=== PATIENT | female | born 1995 | race Caucasian/White ===

== ENCOUNTER 2020-07-22 16:04 | Emergency (ER) | payer MEDICAID, SELFPAY ==
[2020-07-22 16:14] VITALS: PULSE 130; RESP 20; O2SAT 98; BMI 17.2
--- NOTE | 2020-07-22 17:03 | ED_ITS ---
HPI - Psych General Chief Complaint: ETOH/Substance Use Stated Complaint: SUBSTANCE ABUSE Time Seen by Provider: 07/22/20 16:27 Source: patient Mode of arrival: EMS Limitations: no limitations History of Present Illness HPI Narrative: Patient history of substance abuse snort heroin and cocaine from [place] been in [place] for last 3 weeks homeless was found acting strange at [facility] per patient she took 2 bags of heroin says might have laced with something else since she arrived she is restless walking around very anxious asking for some help no suicidal ideation history of anxiety but not on any medication Related Data Allergies Allergy/AdvReac Type Severity Reaction Status Date / Time No Known Allergies Allergy Verified 07/22/20 16:27 Review of Systems Review of Systems: Constitutional : No Fever, No Chills ENT/Mouth : No Ear Pain, No Nasal Congestion, No sore throat Eyes: No Eye Pain, No Swelling, No Redness Cardiovascular : No Chest Pain, No SOB Respiratory : No Cough, No Sputum, No Dyspnea Gastrointestinal : No Nausea, No Vomiting, No Diarrhea, No Hematochezia, No Melena Genitourinary : No Dysuria, No Urinary Frequency, No Hematuria Musculoskeletal : No Myalgias Skin : No Skin Lesions, + rash Neuro : No Weakness, No Numbness, No Paresthesias, No Dizziness, No Headache Psych : positive Anxiety, positive Depression, negative SI/HI Heme/Lymph: No Lymphadenopathy Endocrine : No Polyuria, No Polydipsia PMFSH Past Medical History Medical History (Updated 07/22/20 @ 17:16 by Marcello Santana MD) Anxiety Cocaine abuse Heroin abuse Social History Social History Advance Directives: No Advance Directives Information Provided: No Physical Exam Vital Signs: Vital Signs: Last Vital Signs Resp 20 07/22/20 16:14 Body Mass Index 17.2 Const: General: comfortable, no acute distress and anxious Orientation/consciousness: patient oriented x3 HENMT: Head: Yes normocephalic and Yes atraumatic Ears: hearing grossly normal bilaterally General nose exam: Normal external nose present Eyes: General: appearance normal, both eyes and all related structures Sclerae: sclerae normal Corneas: corneas normal Pupils: Equal, round and reactive pupils present Neck: Neck: Yes normal visual inspection, Yes full ROM and Yes no lymphadenopathy Chest: Chest palpation & inspection: normal palpation of entire chest wall Resp: Effort & Inspection: normal respiratory effort Auscultation: clear to auscultation bilaterally Cardio: Jugular venous distension: no JVD Palpation: normal PMI Rate: regular rate Rhythm: regular rhythm Heart sounds: S1 normal heart sound present and S2 normal heart sound present Peripheral pulses: Peripheral pulses 2+ throughout GI: Inspection: Yes normal to inspection Palpation (GI): Soft to palpation and nontender Auscultation: normal bowel sounds : General: Yes no CVA tenderness Back/Spine/Pelvis: Back: no CVA tenderness Thoracic/Lumbar Spine: thoracic and lumbar spine normal to inspection Skin: Other: Diffuse macular rash? Cocaine induced over exposed area of upper extremities and face Neuro: General: patient oriented x3, gait normal, moves all extremities, no focal motor deficits and CN's II-XI intact bilaterally Cranial nerves: Yes Equal, round and reactive pupils present Extrem: General: Yes normal to inspection, Yes full ROM and Yes no pedal edema Psych: Appearance: disheveled Mental Status: mental status grossly normal Speech and movement: Psychomotor agitation in speech present and Restless speech present Affect: Labile affect present Attitude: Belligerent attit itude/behavior present Thought process: Racing thoughts present Thought content: Normal thought content present Insight: Fair insight present (Psych) Judgement: Fair judgement present (Psych) MDM - Psych MDM Narrative Medical decision making narrative: Patient with substance abuse heroin and cocaine with anxiety refused to get any help from recovery agent who gave her the address is for detox places. Would like to go home no suicidal ideation feel safe wants to go out and smoke and enjoy her life will discharge her home Differential Diagnosis Differential diagnosis: Likely acute anxiety and substance abuse Discharge Plan Discharge Clinical Impression: Opiate abuse, continuous Patient Disposition: Home, Self-Care Instructions: Opioid Use Disorder (ED) Additional Instructions: Stop using heroin and cocaine follow up with detox
--- NOTE | 2020-07-22 17:14 | MHC.RECOVSUP ---
? Reason for consult o Current location: ED6 o Identified substance use concern: heroin ? Intervention: o ATS bed search started/completed/in process o MAT started or to be started o Community resources provided o Harm reduction discussion ? Plan: o Patient to follow up with [facility] after discharge ? Additional information:Patient refused any services.Stating I just want to leave!
== END 2020-07-22 17:30 | disposition home or self-care (01) ==
PROVIDERS: Emergency Provider Internal Medicine
DX: F11.10 Opioid abuse, uncomplicated (principal); F14.10 Cocaine abuse, uncomplicated; L27.1 Localized skin eruption due to drugs and medicaments taken internally
CPT/HCPCS: 99283

== ENCOUNTER 2020-08-01 15:44 | Emergency (ER) | payer MEDICAID, SELFPAY ==
[2020-08-01 16:05] VITALS: BP 120/70; PULSE 90; RESP 16; O2SAT 98; BMI 17.2
--- NOTE | 2020-08-01 16:10 | ED.OVERDOSE ---
HPI - Overdose General Chief Complaint: Overdose Stated Complaint: drug use Time Seen by Provider: 08/01/20 16:10 Source: patient and EMS Mode of arrival: EMS Limitations: no limitations History of Present Illness HPI Narrative: 24 y/o female with history of heroin use and dependence who presents to the ED via EMS after she was found wandering a parking lot. She reports using a half a bundle of heroin earlier this morning. She uses daily and is homeless. She has been to rehab twice and is not interested at this time. She is arrives anxious, restless and tearful. She wants to leave the ER. She does not want to stay for evaluation. She did not require Narcan. She is not suicidal. She was recently seen here on 07/24 with similar behavior. complaint: accidental overdose Onset (ago): hour(s) Intent: unwilling to say Context: Intentional Overdose: drug/ETOH problems Context: Accidental Overdose: wanted to get high Associated symptoms: depression Treatments Prior to Arrival: none Related Data Allergies Allergy/AdvReac Type Severity Reaction Status Date / Time No Known Allergies Allergy Verified 07/22/20 16:27 Review of Systems Review of Systems: Yes all other systems are reviewed and are negative [facility] Past Medical History Medical History Anxiety Cocaine abuse Heroin abuse Physical Exam Vital Signs: Vital Signs: Appearance: Alert. Oriented X3. Multiple scabs in various stages of healing all over arms, face and neck Eyes: Pupils equal, round and reactive to light. ENT: Pharynx normal. Neck: Normal inspection. Neck supple. CVS: Normal heart rate and rhythm. Pulses normal. Respiratory: No respiratory distress. Breath sounds normal. Skin: Skin warm and dry. Normal skin color with scabbing all over her body Extremities: No lower extremity edema. track castelan on bilateral hands without palpable abscess Neuro: Oriented X 3. No motor deficit. No sensory deficit. Steady gait, restless. Course Course Course Narrative: 24 y/o female with history of daily heroin use presenting with odd behavior in the community. She is AAO x3, non-focal and has a steady gait. She is refusing detox. She is speaking in complete sentences. She was told if she did not come to the ER for evaluation she would be arrested. She is not suicidal at this time and she is stable for discharge. Discharge Plan Discharge Clinical Impression: Heroin addiction Patient Disposition: Elopement
--- NOTE | 2020-08-01 16:12 | PC.NURSE ---
pt refused triage, refused assessment. she is awake, oriented and speaking in full clear sentences, demanding food and andrea kimberly, also has her hands down her pants and is swearing at staff. Pt states she does not want treatment, does not want detox and refuses to discuss her drug use. She states she has a yeast infection and states her vagina itches, has hand in pants and is scratching. Pt seen by provider and states she is leaving. She ambulated from room to exit with steady gait
== END 2020-08-02 08:57 | disposition left against medical advice (07) ==
LOC: HO.ED 16:29
PROVIDERS: Emergency Provider Emergency Medicine
DX: T40.1X1A Poisoning by heroin, accidental (unintentional), initial encounter (principal); R45.1 Restlessness and agitation; R46.2 Strange and inexplicable behavior; Y92.481 Parking lot as the place of occurrence of the external cause; F41.9 Anxiety disorder, unspecified; F11.20 Opioid dependence, uncomplicated; F14.10 Cocaine abuse, uncomplicated
CPT/HCPCS: 99282

== ENCOUNTER 2020-08-05 08:46 | Inpatient (IN) | payer MEDICAID, SELFPAY ==
[2020-08-05] VITALS (15 sets, daily range): BP systolic 103–153; BP diastolic 66–82; PULSE 58–117; RESP 22–40; TEMP 35.7–37.1; O2SAT 99–100; BMI 20.1; BMI 19.4
--- NOTE | ~2020-08-05 | XR_ITS ---
EXAMINATION: XR CHEST CLINICAL INFORMATION: Hypothermia. COMPARISON: None TECHNIQUE: Frontal view of the chest was obtained. FINDINGS: The lungs are clear. The cardiomediastinal silhouette is normal in size. There is no pleural effusion or pneumothorax. No acute osseous abnormality. XR/XR chest 1V IMPRESSION: No acute cardiopulmonary findings.
--- NOTE | ~2020-08-05 | CT_ITS ---
EXAMINATION: CT HEAD WITHOUT CONTRAST CLINICAL INFORMATION: Hypothermia. Found outside by PD. Unknown trauma. COMPARISON: Chest radiograph 08/05/2020 TECHNIQUE: Contiguous axial imaging was performed from the skull base to vertex without intravenous administration of contrast. Additional 2-D coronal and sagittal reformatted images are generated on the CT workstation and uploaded to PACS. This CT examination was performed using dose optimization techniques as appropriate, variously including the following: *Automated exposure control *Adjustment of mA and/or kV according to patient size (this includes techniques or standardized protocols for targeted exams where dose is matched to indication/reason for exam; i.e. extremities or head) *Use of iterative reconstruction technique DLP: 610 mGy-cm FINDINGS: There is no intracranial hemorrhage, hematoma, or extra-axial fluid collection. The ventricles are normal in size. There is no hydrocephalus, edema, or mass effect. The hines-white matter differentiation appears symmetric. There is no visible acute territorial infarct or mass lesion. The calvarium appears intact. There is no pneumocephalus or orbital emphysema. The visualized sinuses and middle ears and mastoid air cells show no significant mucosal thickening. There are no air-fluid levels. CT/CT head/brain wo con IMPRESSION: Normal noncontrast CT head.
--- NOTE | 2020-08-05 09:05 | ECG_ITS ---
Test Reason : HYPERGLYCEMIA Blood Pressure : / mmHG Vent. Rate : 117 BPM Atrial Rate : 117 BPM P-R Int : 134 ms QRS Dur : 072 ms QT Int : 330 ms P-R-T Axes : 083 083 055 degrees QTc Int : 460 ms Sinus tachycardia Right atrial enlargement Tall T waves - consider hyperkalemia No previous ECGs available Referred By: Mahsa Parish Electronically Signed By:Constantine Montalvo
--- NOTE | 2020-08-05 09:19 | ED.GENADULT ---
HPI - General Adult General Chief complaint: Recheck/Abnormal Lab/Rx <MIRANDA Dunn - Last Filed: 08/05/20 12:36> Stated complaint: SUBSTANCE USE,HYPOTHERMIA,HIGH BLOOD SUGAR <MIRANDA Dunn Last Filed: 08/05/20 12:36> Time Seen by Provider: 08/05/20 08:48 <MIRANDA Dunn Last Filed: 08/05/20 12:36> Source: patient and EMS <MIRANDA Dunn Last Filed: 08/05/20 12:36> Mode of arrival: EMS <MIRANDA Dunn Last Filed: 08/05/20 12:36> History of Present Illness HPI narrative: 24-year-old female with a past medical history of DM, anxiety, substance abuse, BIBA [place] unconscious with suspected substance abuse, hypothermic, and with elevated glucose. Per EMS POC 411. Patient reports she has been outside for 3 days. Reported drug of choice is heroin, however denies illicit drug/substance use or EtOH in 3 days. Admits to abdominal discomfort, nausea, vomiting, and diarrhea. Denies fall/trauma, CP/SOB. <MIRANDA Dunn - Last Filed: 08/05/20 12:36> Onset (ago): minute(s) <MIRANDA Dunn - Last Filed: 08/05/20 12:36> Related Data Home medications: Home Medications Medication Instructions Recorded Confirmed insulin regular human [Novolin R 1 sliding scale dose SUBCUT 08/05/20 08/05/20 Regular U-100 Insuln] USEASDIRECTD <MIRANDA Dunn Last Filed: 08/05/20 12:36> Allergies/adverse reactions: Allergies Allergy/AdvReac Type Severity Reaction Status Date / Time No Known Allergies Allergy Verified 07/22/20 16:27 <MIRANDA Dunn Last Filed: 08/05/20 12:36> Review of Systems Review of Systems: Constitutional: No Weight loss, No Fever, +Chills ENT/Mouth: No Ear Pain, No sore throat Cardiovascular: No Chest Pain, No SOB Respiratory: No Cough, No Sputum Gastrointestinal: + Nausea, + Vomiting, + Diarrhea, No Constipation, + Abdominal pain Genitourinary: No Dysuria, No Hematuria Musculoskeletal: No joint pain, No Myalgias, No Joint Swelling Skin: No Skin Lesions, No rash Neuro: No Weakness, No Numbness, No Headache Psych: No Depression, No SI/HI, No Social Issues Endocrine: + Polydipsia Patient is poor historian/not cooperative <MIRANDA Dunn - Last Filed: 08/05/20 12:36> [facility] Past Medical History Attestation statement: The following information was validated with the patient. <MIRANDA Dunn - Last Filed: 08/05/20 12:36> Medical History: Medical History Anxiety Cocaine abuse Heroin abuse <MIRANDA Dunn - Last Filed: 08/05/20 12:36> Social History Social History: Social History Use of substances other than those prescribed or required for medical reasons: Yes Substance Use Type: Heroin and Methamphetamine Substance Use Frequency: Daily Last Used Substance: Days (ago) Advance Directives: No Advance Directives Information Provided: No <MIRANDA Dunn - Last Filed: 08/05/20 12:36> Physical Exam Vital Signs: Vital Signs: Last Vital Signs Temp 96.3 F L 08/05/20 12:23 Pulse 111 H 08/05/20 12:23 Resp 29 H 08/05/20 12:23 BP 143/82 H 08/05/20 12:23 Pulse Ox 100 08/05/20 12:23 Body Mass Index 20.1 <MIRANDA Dunn - Last Filed: 08/05/20 12:36> Vital Signs: Last Vital Signs Temp 96.3 F L 08/05/20 12:23 Pulse 111 H 08/05/20 12:23 Resp 29 H 08/05/20 12:23 BP 143/82 H 08/05/20 12:23 Pulse Ox 100 08/05/20 12:23 Body Mass Index 20.1 <Kennedy Wetzel MD - Last Filed: 08/05/20 11:19> Const: Other: No signs of trauma <MIRANDA Dunn - Last Filed: 08/05/20 12:36> General: alert and awake <Mahsa Parish OR - Last Filed: 08/05/20 12:36> Nutritional Appearance: malnourished <Mahsa Parish OR - Last Filed: 08/05/20 12:36> Orientation/consciousness: patient oriented x3 <Mahsa Parish OR - Last Filed: 08/05/20 12:36> Limitations: no limitations <Mahsa Parish OR - Last Filed: 08/05/20 12:36> HENMT: Head: Yes normal to inspection and Yes atraumatic <Mahsa Parish OR - Last Filed: 08/05/20 12:36> Ears: hearing grossly normal bilaterally <Mahsa Parish OR - Last Filed: 08/05/20 12:36> General nose exam: Normal external nose present <Mahsa Parish OR - Last Filed: 08/05/20 12:36> Face and sinus: Yes normal facial exam <Mahsa Parish OR - Last Filed: 08/05/20 12:36> Eyes: General: appearance normal, both eyes and all related structures <Mahsa Parish OR - Last Filed: 08/05/20 12:36> Pupils: Dilated pupils bilaterally <Mahsa Parish OR - Last Filed: 08/05/20 12:36> EOM: EOMs intact bilaterally <Mahsa Parish OR - Last Filed: 08/05/20 12:36> Direct Ophthalmoscopy: normal light reflex <Mahsa Parish OR - Last Filed: 08/05/20 12:36> Neck: Neck: Yes normal visual inspection and Yes no meningeal signs <Mahsa Parish OR - Last Filed: 08/05/20 12:36> Resp: Effort & Inspection: normal respiratory effort and not labored <Mahsa Parish OR - Last Filed: 08/05/20 12:36> Cardio: Rate: regular rate <Mahsa Parish OR - Last Filed: 08/05/20 12:36> GI: Inspection: Yes normal to inspection <Mahsa Parish OR - Last Filed: 08/05/20 12:36> Palpation (GI): Soft to palpation, nontender, no guarding and not rigid <Mahsa Parish OR - Last Filed: 08/05/20 12:36> Skin: Other: Multiple scabs noted diffusely over body multiple stages of healing <MIRANDA Dunn Last Filed: 08/05/20 12:36> Neuro: Other: Anxious, restless <MIRANDA Dunn Last Filed: 08/05/20 12:36> General: patient oriented x3, tone normal, moves all extremities and no meningeal signs <MIRANDA Dunn - Last Filed: 08/05/20 12:36> Extrem: General: Yes normal to inspection <MIRANDA Dunn - Last Filed: 08/05/20 12:36> Course Course Course Narrative: -1050--patient with noted leukocytosis of 15.7, CXR negative. Is receiving greater than 30 mg/kg IVF & empiric IV Zosyn ordered to cover sepsis -1056--lactic acidosis noted of 10.8 likely from DKA/hypothermia/dehydration rather than infection. No active infection suspected at this time. - Bicarb noted to be less than 5 > insulin bolus and drip ordered, head CT unremarkable. Case discussed with ICU for admission <MIRANDA Dunn - Last Filed: 08/05/20 12:36> I have discussed the case and management with the OSEI <Kennedy Wetzel MD - Last Filed: 08/05/20 11:19> Medical Decision Making [facility] Narrative Medical decision making narrative: 24-year-old female with a past medical history of DM, anxiety, substance abuse, BIBA [place] with suspected substance abuse, hypothermic, and with elevated glucose. On exam initially hypothermic 94F rectally, tachycardic, tachypneic, POC > 600, covered in feces, alert, oriented, restless, poor historian, no signs of trauma. Concern for DKA vs dehydration vs electrolyte abnormalities vs exposure/drug induced hypothermia. R/o infectious etiology. R/o IC pathology due to poor hx Low concern for severe sepsis initially as suspected vital sign abnormalities due to dehydration/exposure and hyperglycemia Plan: EKG, labs, UA, CXR, head CT, warm IVF, Ana Hugger, reassess, anticipated admission <MIRANDA Dunn Last Filed: 08/05/20 12:36> Lab Data Result diagrams: : 08/05/20 10:12 08/05/20 10:16 <MIRANDA Dunn - Last Filed: 08/05/20 12:36> Labs: Lab Results 08/05/20 08/05/20 08/05/20 Range/Units 09:28 10:10 10:12 WBC 15.7 H (4.8-10.8) X10*3/uL RBC 4.96 (4.20-5.50) X10*6/uL Hgb 14.0 (12.0-16.0) g/dl Hct 45.8 (37-47) % MCV 92.3 (80-98) fL MCH 28.2 (27.0-33.0) pg MCHC 30.6 L (31.0-35.0) g/dl RDW 14.3 (11.0-16.0) % Plt Count 509 H (160-400) X10*3/uL MPV 10.6 (9.4-12.3) fL Immature Gran % (Auto) 0.8 H (0.0-0.4) % Neut % (Auto) 93.2 H (45-73) % Lymph % (Auto) 4.7 L (20-40) % [place] % (Auto) 1.0 L (2-11) % Eos % (Auto) 0.1 (0-4) % Baso % (Auto) 0.2 (0-2) % Lymph # (Auto) 0.7 L (1.2-4.9) X10*3/uL [place] # (Auto) 0.2 (0.1-1.2) X10*3/uL Eos # (Auto) 0.0 (0.0-0.4) X10*3/uL Baso # (Auto) 0.0 (0.0-0.2) X10*3/uL Abs Immat Gran (auto) 0.13 H (0.00-0.03) X10*3/uL Absolute Neuts (auto) 14.6 H (2.0-8.3) X10*3/uL Absolute Nucleated RBC 0.000 (0.0-0.012) X10*3/uL Nucleated RBC % (auto) 0.0 (0.0-0.2) /100WBC Smear Tech's Comments VERIFIED PT (10.8-13.0) SEC INR (0.9-1.1) APTT (24.1-38.0) SEC Sodium (135-145) mmol/L Potassium (3.3-5.1) mmol/L Chloride (96-108) mmol/L Carbon Dioxide (22-29) mmol/L Anion Gap (12-20) BUN (9-16) mg/dL Creatinine (0.5-1.4) mg/dL Estim Creat Clear Calc Estimated GFR POC Glucose > 600 H* (60-115) mg/dL Random Glucose (60-115) mg/dL Lactic Acid 10.8 H* (0.5-2.0) mmol/L Calcium (8.4-10.2) mg/dL Magnesium (1.6-2.6) mg/dL Total Bilirubin (0.0-1.0) mg/dL Direct Bilirubin (0.0-0.5) mg/dL AST (5-31) U/L ALT (0-31) U/L Alkaline Phosphatase (39-117) U/L Total Protein (6.5-8.0) g/dL Albumin (3.5-5.0) g/dL Lipase (8-78) U/L TSH (0.32-4.0) uIU/mL Ethyl Alcohol mg/dL Coronavirus (PCR) (Negative) Influenza Type A (PCR) (Negative) Influenza Type B (PCR) (Negative) RSV RNA Qual (PCR) (Negative) 08/05/20 08/05/20 08/05/20 Range/Units 10:13 10:15 10:15 WBC (4.8-10.8) X10*3/uL RBC (4.20-5.50) X10*6/uL Hgb (12.0-16.0) g/dl Hct (37-47) % MCV (80-98) fL MCH (27.0-33.0) pg MCHC (31.0-35.0) g/dl RDW (11.0-16.0) % Plt Count (160-400) X10*3/uL MPV (9.4-12.3) fL Immature Gran % (Auto) (0.0-0.4) % Neut % (Auto) (45-73) % Lymph % (Auto) (20-40) % [place] % (Auto) (2-11) % Eos % (Auto) (0-4) % Baso % (Auto) (0-2) % Lymph # (Auto) (1.2-4.9) X10*3/uL [place] # (Auto) (0.1-1.2) X10*3/uL Eos # (Auto) (0.0-0.4) X10*3/uL Baso # (Auto) (0.0-0.2) X10*3/uL Abs Immat Gran (auto) (0.00-0.03) X10*3/uL Absolute Neuts (auto) (2.0-8.3) X10*3/uL Absolute Nucleated RBC (0.0-0.012) X10*3/uL Nucleated RBC % (auto) (0.0-0.2) /100WBC Smear Tech's Comments PT (10.8-13.0) SEC INR (0.9-1.1) APTT (24.1-38.0) SEC Sodium (135-145) mmol/L Potassium (3.3-5.1) mmol/L Chloride (96-108) mmol/L Carbon Dioxide (22-29) mmol/L Anion Gap (12-20) BUN (9-16) mg/dL Creatinine (0.5-1.4) mg/dL Estim Creat Clear Calc Estimated GFR POC Glucose (60-115) mg/dL Random Glucose (60-115) mg/dL Lactic Acid (0.5-2.0) mmol/L Calcium (8.4-10.2) mg/dL Magnesium (1.6-2.6) mg/dL Total Bilirubin (0.0-1.0) mg/dL Direct Bilirubin (0.0-0.5) mg/dL AST (5-31) U/L ALT (0-31) U/L Alkaline Phosphatase (39-117) U/L Total Protein (6.5-8.0) g/dL Albumin (3.5-5.0) g/dL Lipase (8-78) U/L TSH 1.37 (0.32-4.0) uIU/mL Ethyl Alcohol < 10 mg/dL Coronavirus (PCR) NEGATIVE (Negative) Influenza Type A (PCR) NEGATIVE (Negative) Influenza Type B (PCR) NEGATIVE (Negative) RSV RNA Qual (PCR) NEGATIVE (Negative) 08/05/20 08/05/20 Range/Units 10:16 10:16 WBC (4.8-10.8) X10*3/uL RBC (4.20-5.50) X10*6/uL Hgb (12.0-16.0) g/dl Hct (37-47) % MCV (80-98) fL MCH (27.0-33.0) pg MCHC (31.0-35.0) g/dl RDW (11.0-16.0) % Plt Count (160-400) X10*3/uL MPV (9.4-12.3) fL Immature Gran % (Auto) (0.0-0.4) % Neut % (Auto) (45-73) % Lymph % (Auto) (20-40) % [place] % (Auto) (2-11) % Eos % (Auto) (0-4) % Baso % (Auto) (0-2) % Lymph # (Auto) (1.2-4.9) X10*3/uL [place] # (Auto) (0.1-1.2) X10*3/uL Eos # (Auto) (0.0-0.4) X10*3/uL Baso # (Auto) (0.0-0.2) X10*3/uL Abs Immat Gran (auto) (0.00-0.03) X10*3/uL Absolute Neuts (auto) (2.0-8.3) X10*3/uL Absolute Nucleated RBC (0.0-0.012) X10*3/uL Nucleated RBC % (auto) (0.0-0.2) /100WBC Smear Tech's Comments PT 11.8 (10.8-13.0) SEC INR 1.0 (0.9-1.1) APTT 29.0 (24.1-38.0) SEC Sodium 134 L (135-145) mmol/L Potassium 5.4 H (3.3-5.1) mmol/L Chloride 91 L (96-108) mmol/L Carbon Dioxide < 5 L* (22-29) mmol/L Anion Gap 43 H (12-20) BUN 25 H (9-16) mg/dL Creatinine 1.57 H (0.5-1.4) mg/dL Estim Creat Clear Calc 44.2 Estimated GFR 41 POC Glucose (60-115) mg/dL Random Glucose 760 H* (60-115) mg/dL Lactic Acid (0.5-2.0) mmol/L Calcium 9.0 (8.4-10.2) mg/dL Magnesium 2.8 H (1.6-2.6) mg/dL Total Bilirubin 0.7 (0.0-1.0) mg/dL Direct Bilirubin 0.3 (0.0-0.5) mg/dL AST 19 (5-31) U/L ALT 41 H (0-31) U/L Alkaline Phosphatase 198 H (39-117) U/L Total Protein 8.1 H (6.5-8.0) g/dL Albumin 4.2 (3.5-5.0) g/dL Lipase 12 (8-78) U/L TSH (0.32-4.0) uIU/mL Ethyl Alcohol mg/dL Coronavirus (PCR) (Negative) Influenza Type A (PCR) (Negative) Influenza Type B (PCR) (Negative) RSV RNA Qual (PCR) (Negative) <MIRANDA Dunn - Last Filed: 08/05/20 12:36> Lab Results 08/05/20 08/05/20 08/05/20 Range/Units 09:28 10:10 10:12 WBC 15.7 H (4.8-10.8) X10*3/uL RBC 4.96 (4.20-5.50) X10*6/uL Hgb 14.0 (12.0-16.0) g/dl Hct 45.8 (37-47) % MCV 92.3 (80-98) fL MCH 28.2 (27.0-33.0) pg MCHC 30.6 L (31.0-35.0) g/dl RDW 14.3 (11.0-16.0) % Plt Count 509 H (160-400) X10*3/uL MPV 10.6 (9.4-12.3) fL Immature Gran % (Auto) 0.8 H (0.0-0.4) % Neut % (Auto) 93.2 H (45-73) % Lymph % (Auto) 4.7 L (20-40) % [place] % (Auto) 1.0 L (2-11) % Eos % (Auto) 0.1 (0-4) % Baso % (Auto) 0.2 (0-2) % Lymph # (Auto) 0.7 L (1.2-4.9) X10*3/uL [place] # (Auto) 0.2 (0.1-1.2) X10*3/uL Eos # (Auto) 0.0 (0.0-0.4) X10*3/uL Baso # (Auto) 0.0 (0.0-0.2) X10*3/uL Abs Immat Gran (auto) 0.13 H (0.00-0.03) X10*3/uL Absolute Neuts (auto) 14.6 H (2.0-8.3) X10*3/uL Absolute Nucleated RBC 0.000 (0.0-0.012) X10*3/uL Nucleated RBC % (auto) 0.0 (0.0-0.2) /100WBC Smear Tech's Comments VERIFIED PT (10.8-13.0) SEC INR (0.9-1.1) APTT (24.1-38.0) SEC Sodium (135-145) mmol/L Potassium (3.3-5.1) mmol/L Chloride (96-108) mmol/L Carbon Dioxide (22-29) mmol/L Anion Gap (12-20) BUN (9-16) mg/dL Creatinine (0.5-1.4) mg/dL Estim Creat Clear Calc Estimated GFR POC Glucose > 600 H* (60-115) mg/dL Random Glucose (60-115) mg/dL Lactic Acid 10.8 H* (0.5-2.0) mmol/L Calcium (8.4-10.2) mg/dL Magnesium (1.6-2.6) mg/dL Total Bilirubin (0.0-1.0) mg/dL Direct Bilirubin (0.0-0.5) mg/dL AST (5-31) U/L ALT (0-31) U/L Alkaline Phosphatase (39-117) U/L Total Protein (6.5-8.0) g/dL Albumin (3.5-5.0) g/dL Lipase (8-78) U/L TSH (0.32-4.0) uIU/mL Ethyl Alcohol mg/dL Coronavirus (PCR) (Negative) Influenza Type A (PCR) (Negative) Influenza Type B (PCR) (Negative) RSV RNA Qual (PCR) (Negative) 08/05/20 08/05/20 08/05/20 Range/Units 10:13 10:15 10:15 WBC (4.8-10.8) X10*3/uL RBC (4.20-5.50) X10*6/uL Hgb (12.0-16.0) g/dl Hct (37-47) % MCV (80-98) fL MCH (27.0-33.0) pg MCHC (31.0-35.0) g/dl RDW (11.0-16.0) % Plt Count (160-400) X10*3/uL MPV (9.4-12.3) fL Immature Gran % (Auto) (0.0-0.4) % Neut % (Auto) (45-73) % Lymph % (Auto) (20-40) % [place] % (Auto) (2-11) % Eos % (Auto) (0-4) % Baso % (Auto) (0-2) % Lymph # (Auto) (1.2-4.9) X10*3/uL [place] # (Auto) (0.1-1.2) X10*3/uL Eos # (Auto) (0.0-0.4) X10*3/uL Baso # (Auto) (0.0-0.2) X10*3/uL Abs Immat Gran (auto) (0.00-0.03) X10*3/uL Absolute Neuts (auto) (2.0-8.3) X10*3/uL Absolute Nucleated RBC (0.0-0.012) X10*3/uL Nucleated RBC % (auto) (0.0-0.2) /100WBC Smear Tech's Comments PT (10.8-13.0) SEC INR (0.9-1.1) APTT (24.1-38.0) SEC Sodium (135-145) mmol/L Potassium (3.3-5.1) mmol/L Chloride (96-108) mmol/L Carbon Dioxide (22-29) mmol/L Anion Gap (12-20) BUN (9-16) mg/dL Creatinine (0.5-1.4) mg/dL Estim Creat Clear Calc Estimated GFR POC Glucose (60-115) mg/dL Random Glucose (60-115) mg/dL Lactic Acid (0.5-2.0) mmol/L Calcium (8.4-10.2) mg/dL Magnesium (1.6-2.6) mg/dL Total Bilirubin (0.0-1.0) mg/dL Direct Bilirubin (0.0-0.5) mg/dL AST (5-31) U/L ALT (0-31) U/L Alkaline Phosphatase (39-117) U/L Total Protein (6.5-8.0) g/dL Albumin (3.5-5.0) g/dL Lipase (8-78) U/L TSH 1.37 (0.32-4.0) uIU/mL Ethyl Alcohol < 10 mg/dL Coronavirus (PCR) NEGATIVE (Negative) Influenza Type A (PCR) NEGATIVE (Negative) Influenza Type B (PCR) NEGATIVE (Negative) RSV RNA Qual (PCR) NEGATIVE (Negative) 08/05/20 08/05/20 Range/Units 10:16 10:16 WBC (4.8-10.8) X10*3/uL RBC (4.20-5.50) X10*6/uL Hgb (12.0-16.0) g/dl Hct (37-47) % MCV (80-98) fL MCH (27.0-33.0) pg MCHC (31.0-35.0) g/dl RDW (11.0-16.0) % Plt Count (160-400) X10*3/uL MPV (9.4-12.3) fL Immature Gran % (Auto) (0.0-0.4) % Neut % (Auto) (45-73) % Lymph % (Auto) (20-40) % [place] % (Auto) (2-11) % Eos % (Auto) (0-4) % Baso % (Auto) (0-2) % Lymph # (Auto) (1.2-4.9) X10*3/uL [place] # (Auto) (0.1-1.2) X10*3/uL Eos # (Auto) (0.0-0.4) X10*3/uL Baso # (Auto) (0.0-0.2) X10*3/uL Abs Immat Gran (auto) (0.00-0.03) X10*3/uL Absolute Neuts (auto) (2.0-8.3) X10*3/uL Absolute Nucleated RBC (0.0-0.012) X10*3/uL Nucleated RBC % (auto) (0.0-0.2) /100WBC Smear Tech's Comments PT 11.8 (10.8-13.0) SEC INR 1.0 (0.9-1.1) APTT 29.0 (24.1-38.0) SEC Sodium 134 L (135-145) mmol/L Potassium 5.4 H (3.3-5.1) mmol/L Chloride 91 L (96-108) mmol/L Carbon Dioxide < 5 L* (22-29) mmol/L Anion Gap 43 H (12-20) BUN 25 H (9-16) mg/dL Creatinine 1.57 H (0.5-1.4) mg/dL Estim Creat Clear Calc 44.2 Estimated GFR 41 POC Glucose (60-115) mg/dL Random Glucose 760 H* (60-115) mg/dL Lactic Acid (0.5-2.0) mmol/L Calcium 9.0 (8.4-10.2) mg/dL Magnesium 2.8 H (1.6-2.6) mg/dL Total Bilirubin 0.7 (0.0-1.0) mg/dL Direct Bilirubin 0.3 (0.0-0.5) mg/dL AST 19 (5-31) U/L ALT 41 H (0-31) U/L Alkaline Phosphatase 198 H (39-117) U/L Total Protein 8.1 H (6.5-8.0) g/dL Albumin 4.2 (3.5-5.0) g/dL Lipase 12 (8-78) U/L TSH (0.32-4.0) uIU/mL Ethyl Alcohol mg/dL Coronavirus (PCR) (Negative) Influenza Type A (PCR) (Negative) Influenza Type B (PCR) (Negative) RSV RNA Qual (PCR) (Negative) <Kennedy Wetzel MD - Last Filed: 08/05/20 11:19> ECG Data Attestation: I personally reviewed and interpreted this ECG as follows: <MIRANDA Dunn - Last Filed: 08/05/20 12:36> Prior ECG tracings: not available for review <MIRANDA Dunn - Last Filed: 08/05/20 12:36> Interpretation: EKG sinus tachycardia with a rate of 117. No STEMI. QTC 460 <MIRANDA Dunn - Last Filed: 08/05/20 12:36> Critical Care Time Critical Care Time Critical Care Time: Yes <MIRANDA Dunn - Last Filed: 08/05/20 12:36> Total Critical Care Time: 60 <MIRANDA Dunn - Last Filed: 08/05/20 12:36> Attestation: 60 minutes of critical care time was spent evaluating patient, obtaining history, chart review, re-evaluating patient, reviewing labs/orders, etc. <MIRANDA Dunn - Last Filed: 08/05/20 12:36> Discharge Plan Discharge Patient Disposition: Admitted As Inpatient <MIRANDA Dunn - Last Filed: 08/05/20 12:36>
[2020-08-05 09:32] LABS: Glucose, Whole Blood > 600 mg/dL (60-115)
--- NOTE | 2020-08-05 10:29 | PC.NURSE ---
Pt alert and oriented, skin pale and cool, rectal temp 94.0 , POC > 600. Pt reports RL abdominal pain 11/25. Pt arrived via EMS. [place] [address] [place] police. Pt reports she has been outdoors x3 days. Pt given shower d/t large amount of dried feces on entire body. Pt currently receiving warm fluids. Warming blanket applied.
[2020-08-05 10:30] LABS: Basophils Percent Auto 0.2 % (0-2); Eosinophils Percent Auto 0.1 % (0-4); Hematocrit 45.8 % (37-47); Imm Gran Abs Auto 0.13 X10*3/uL (0.00-0.03); Imm Gran Pct Auto 0.8 % (0.0-0.4); Lymphocytes Absolute Auto 0.7 X10*3/uL (1.2-4.9); Lymphocytes Percent Auto 4.7 % (20-40); MANUAL DIFF FLAG SCAN; Mean Corpuscular HGB Conc 30.6 g/dl (31.0-35.0); Mean Corpuscular Hemoglobin 28.2 pg (27.0-33.0); Mean Corpuscular Volume 92.3 fL (80-98); Mean Platelet Volume 10.6 fL (9.4-12.3); Monocytes Absolute Auto 0.2 X10*3/uL (0.1-1.2); Neutrophils Absolute Auto 14.6 X10*3/uL (2.0-8.3); Neutrophils Percent Auto 93.2 % (45-73); Platelet Count 509 X10*3/uL (160-400); Red Blood Count 4.96 X10*6/uL (4.20-5.50); Red Cell Distribution Width 14.3 % (11.0-16.0); SCAN SMEAR FLAG 1; White Blood Count 15.7 X10*3/uL (4.8-10.8)
[2020-08-05] MEDS: 0.9 % Sodium Chloride 1,000 ML 999 ML IVCONT ×3 (10:30→12:33)
--- NOTE | 2020-08-05 10:36 | PC.NURSE ---
LAB CALLED FOR DRAW
[2020-08-05 10:37] LABS: Prothrombin Time 11.8 SEC (10.8-13.0)
[2020-08-05 10:52] LABS: Ethanol < 10 mg/dL
[2020-08-05 10:53] LABS: Lactic Acid 10.8 mmol/L (0.5-2.0)
[2020-08-05 10:55] LABS: SLIDE REVIEW VERIFIED
[2020-08-05 11:05] LABS: Alanine Aminotransferase 41 U/L (0-31); Albumin Level 4.2 g/dL (3.5-5.0); Alkaline Phosphatase 198 U/L (39-117); Aspartate Amino Transferase 19 U/L (5-31); Bilirubin Direct 0.3 mg/dL (0.0-0.5); Bilirubin Total 0.7 mg/dL (0.0-1.0); Blood Urea Nitrogen 25 mg/dL (9-16); Creatinine Clr Calc Pharmacy 44.2; Estimated Glomerular Filt Rate 41; Lipase 12 U/L (8-78); Magnesium 2.8 mg/dL (1.6-2.6); Total Protein 8.1 g/dL (6.5-8.0)
[2020-08-05 11:09] LABS: Anion Gap 43 (12-20); Carbon Dioxide < 5 mmol/L (22-29); Chloride 91 mmol/L (96-108); Potassium 5.4 mmol/L (3.3-5.1); Sodium 134 mmol/L (135-145)
[2020-08-05 11:14] LABS: Glucose Random 760 mg/dL (60-115)
[2020-08-05 11:15] LABS: TSH reflex Free T4 1.37 uIU/mL (0.32-4.0)
[2020-08-05] MEDS: Piperacillin Sodium/Tazobactam 3.375 GM in 0.9 % Sodium Chloride 50 ML IV (11:47)
[2020-08-05] MEDS: Insulin Regular, Human 100 UNIT/ML 3 ML VIAL 10 UNIT IVPUSH (11:47)
[2020-08-05 12:21] LABS: Reflex Lactate? Lactic Acid Added
[2020-08-05] MEDS: Insulin Regular/NS 100 UNIT/100 ML PLAST..BAG IVCONT (12:27)
--- NOTE | 2020-08-05 12:41 | PC.NURSE ---
Pt alert and awake, thirsty. Reports taking Novolin R as needed, homeless. scabs/scars to general body. Bare hugger on, last core temp 96.3 as charted. NS boluses given as charted in [facility] via fluid warmer. Zoysn infused. Pt is very difficult stick, Will attempt to obtain repeat lactic. Phlebotomy to bedside and also unable. Insulin gtt started at 5units/hr per order. Pt incontinent of urine but reports ability to report when to void. Refuses catheter at this time. Sinus tach on tele rate 115. sat 100% on room air.
[2020-08-05 12:47] LABS: Ammonia 102 umol/L (13-55)
--- NOTE | 2020-08-05 12:54 | PC.NURSE ---
Pt tachypneic RR 26 and shallow breathing
[2020-08-05 13:06] LABS: Lipase 9 U/L (8-78)
--- NOTE | 2020-08-05 13:18 | PC.NURSE ---
Phlebotomy current at bedside attempting to draw lactic. Pt's belongings in decon.
[2020-08-05 13:40] LABS: Acetone, serum QL Moderate (Negative)
[2020-08-05 13:42] LABS: Glucose, Whole Blood 413 mg/dL (60-115)
--- NOTE | 2020-08-05 13:45 | PC.NURSE ---
THIRD CALL TO ATTEMPT REPORT
[2020-08-05] MEDS: Lactated Ringers 1,000 ML 250 ML IVCONT ×2 (13:47→19:38)
[2020-08-05 13:51] LABS: Glucose Urine UA 500 MG/DL (NEG); Leukocyte Esterase Urine NEG (NEG); Nitrite Urine NEG (NEG); PH 5.5 (5.0-8.0); Specific Gravity - Urine >= 1.030 (1.005-1.025); Urine Blood NEG (NEG); Urine Ketones >=80 MG/DL (NEG); Urine Protein NEG (NEG-TRACE)
[2020-08-05 13:58] LABS: Appearance Urine CLEAR; Color Urine YELLOW
[2020-08-05 14:06] LABS: ~Lactic Acid-LAB USE ONLY 2.9 mmol/L (0.5-2.0)
[2020-08-05 14:31] LABS: Amphetamine Screen Urine Not Detected (Not Detect); Barbiturates, Urine Not Detected (Not Detect); Benzodiazepines Screen Urine Not Detected (Not Detect); Cannabinoid Screen Urine POSITIVE (Not Detect); Cocaine Screen Urine Not Detected (Not Detect); Opiate Screen Urine Not Detected (Not Detect); Phencyclidine Screen Urine Not Detected (Not Detect)
[2020-08-05 15:15] LABS: Glucose, Whole Blood 341 mg/dL (60-115)
[2020-08-05 15:30] LABS: Reflex Lactate? 2 Y
--- NOTE | 2020-08-05 15:52 | P.HPCC_ITS ---
History of Present Illness Date of Service: 08/05/20 Chief Complaint: Diabetic ketoacidosis 24-year-old lady with underlying history of insulin-dependent diabetes mellitus, polysubstance abuse, anxiety found unconscious by police department and brought to ER. On ER evaluation hypothermic and with profound metabolic acidosis and hyperglycemia. Patient stated that she has been without her insulin for 4 days. Patient started on IV fluid resuscitation, insulin drip, and empiric antibiotic and admitted to intensive care unit. Review of Systems Constitutional: Constitutional: Denies daytime sleepiness, Denies excessive sweating, Denies fatigue, Denies fever(s), Denies lethargy, Denies malaise, Denies night sweats, Denies snoring and Denies weight loss Eyes: Eyes: Denies blurry vision and Denies itchy eyes ENT: Denies nasal congestion, Denies post nasal drip, Denies sinus pain, Denies sinus pressure and Denies other ( Thrush) Cardiovascular: Cardiovascular: Denies chest pain, Denies pedal edema, Denies dyspnea, Denies orthopnea and Denies paroxysmal nocturnal dyspnea Respiratory: Respiratory: Denies cough, Denies hemoptysis, Denies excessive phlegm production, Denies dyspnea, Denies snoring and Denies wheezing Gastrointestinal: Gastrointestinal: Reports abdominal pain (Abdominal tremens), Denies heartburn, Reports diarrhea, Reports nausea and Reports vomiting Musculoskeletal: Musculoskeletal: Denies myalgias, Denies arthralgias and Denies joint swelling Integumentary/Breasts: Skin/Breast: Denies rash Neurologic: Denies memory loss and Denies seizure-like activity Psychiatric: Psychiatric: Denies abnormal sleep pattern, Denies anxiety and Denies memory loss Endocrine: Endocrine: Denies excessive sweating, Denies fatigue and Denies heat intolerance Hematologic/Lymphatic: Hematologic/Lymphatic: Denies easy bruising Allergic/Immunologic: Allergic/Immunologic: Denies itchy eyes, Denies seasonal rhinorrhea and Denies wheezing PMFSH Past Medical History Medical History Anxiety Cocaine abuse Heroin abuse Social History Social History Use of substances other than those prescribed or required for medical reasons: Yes Substance Use Type: Heroin and Methamphetamine Substance Use Frequency: Daily Last Used Substance: Days (ago) Advance Directives: No Advance Directives Information Provided: No Meds Allergies Allergy/AdvReac Type Severity Reaction Status Date / Time No Known Allergies Allergy Verified 07/22/20 16:27 Active Medications: Current Medications Generic Name Dose Route Start Last Admin Trade Name Freq PRN Reason Stop Dose Admin Heparin Sodium (Porcine) 5,000 unit 08/05/20 12:00 Heparin Sodium,Porcine 5,000 Unit/Ml Vial SUBCUT Q8H MIKKI Insulin Human Regular 100 unit in 100 mls @ 5 mls/hr 08/05/20 11:30 08/05/20 13:45 Myxredlin IVCONT 2.5 unit/hr .Q20H MIKKI 2.5 mls/hr Titration Protocol 5 UNIT/HR Lactated Ringer's 1,000 mls @ 250 mls/hr 08/05/20 12:00 08/05/20 13:47 Lr IVCONT 250 mls/hr .Q4H MIKKI Administration Piperacillin Sod/Tazobactam 50 mls @ 100 mls/hr 08/05/20 18:00 Sod 2.25 gm/ Sodium Chloride IV Q6H [facility] Pharmacy Consult 1 each 08/05/20 09:52 Consult Rx Perform Med Rec MISCELLANE ONCE PRN Consult order Home Medications Medication Instructions Recorded Confirmed Last Taken Type insulin regular human [Novolin R 1 sliding scale dose SUBCUT 08/05/20 08/05/20 Unknown History Regular U-100 Insuln] USEASDIRECTD Physical Exam Vital Signs: Vital Signs: Last Vital Signs Temp 98.7 F 08/05/20 15:00 Pulse 106 H 08/05/20 15:00 Resp 30 H 08/05/20 15:00 BP 148/68 H 08/05/20 15:00 Pulse Ox 99 08/05/20 15:00 Body Mass Index 19.4 Const: General: no acute distress, alert and awake Eyes: Sclerae: sclerae normal EOM: EOMs intact bilaterally Neck: Neck: Yes no lymphadenopathy, Yes trachea midline and Yes supple Resp: Effort & Inspection: normal respiratory effort and no respiratory distress Auscultation: clear to auscultation bilaterally Cardio: Rate: regular rate Rhythm: regular rhythm Heart sounds: no gallops, no murmurs and no rubs GI: Palpation (GI): Soft to palpation and Other GI palpation findings present ( Nontender) Auscultation: normal bowel sounds Extrem: General: Yes no pedal edema, No clubbing and No cyanosis Results Labs CBC and Chem 7: 08/05/20 10:12 08/05/20 10:16 Labs: Laboratory Results - last 24 hr 08/05/20 08/05/20 08/05/20 09:28 10:10 10:12 MCV 92.3 MCH 28.2 MCHC 30.6 L RDW 14.3 Plt Count 509 H MPV 10.6 Immature Gran % (Auto) 0.8 H Neut % (Auto) 93.2 H Lymph % (Auto) 4.7 L [place] % (Auto) 1.0 L Eos % (Auto) 0.1 Baso % (Auto) 0.2 Lymph # (Auto) 0.7 L [place] # (Auto) 0.2 Eos # (Auto) 0.0 Baso # (Auto) 0.0 Abs Immat Gran (auto) 0.13 H Absolute Neuts (auto) 14.6 H Absolute Nucleated RBC 0.000 Nucleated RBC % (auto) 0.0 Smear Tech's Comments VERIFIED PT INR APTT Anion Gap Estim Creat Clear Calc Estimated GFR POC Glucose > 600 H* Random Glucose Lactic Acid 10.8 H* Lactic Acid Fup @ 2Hr Calcium Magnesium Total Bilirubin Direct Bilirubin AST ALT Alkaline Phosphatase Ammonia Total Creatine Kinase Total Protein Albumin Lipase TSH Urine Color Urine Appearance Urine pH Ur Specific [place] Urine Protein Urine Glucose (UA) Urine Ketones Urine Blood Urine Nitrite Ur Leukocyte Esterase Urine Opiates Screen Ur Barbiturates Screen Ur Phencyclidine Scrn Ur Amphetamines Screen U Benzodiazepines Scrn Urine Cocaine Screen U Marijuana (THC) Screen Ethyl Alcohol Acetone, Qual Coronavirus (PCR) Influenza Type A (PCR) Influenza Type B (PCR) RSV RNA Qual (PCR) 08/05/20 08/05/20 08/05/20 10:13 10:15 10:15 MCV MCH MCHC RDW Plt Count MPV Immature Gran % (Auto) Neut % (Auto) Lymph % (Auto) [place] % (Auto) Eos % (Auto) Baso % (Auto) Lymph # (Auto) [place] # (Auto) Eos # (Auto) Baso # (Auto) Abs Immat Gran (auto) Absolute Neuts (auto) Absolute Nucleated RBC Nucleated RBC % (auto) Smear Tech's Comments PT INR APTT Anion Gap Estim Creat Clear Calc Estimated GFR POC Glucose Random Glucose Lactic Acid Lactic Acid Fup @ 2Hr Calcium Magnesium Total Bilirubin Direct Bilirubin AST ALT Alkaline Phosphatase Ammonia Total Creatine Kinase Total Protein Albumin Lipase TSH 1.37 Urine Color Urine Appearance Urine pH Ur Specific [place] Urine Protein Urine Glucose (UA) Urine Ketones Urine Blood Urine Nitrite Ur Leukocyte Esterase Urine Opiates Screen Ur Barbiturates Screen Ur Phencyclidine Scrn Ur Amphetamines Screen U Benzodiazepines Scrn Urine Cocaine Screen U Marijuana (THC) Screen Ethyl Alcohol < 10 Acetone, Qual Coronavirus (PCR) NEGATIVE Influenza Type A (PCR) NEGATIVE Influenza Type B (PCR) NEGATIVE RSV RNA Qual (PCR) NEGATIVE 08/05/20 08/05/20 08/05/20 10:16 10:16 12:10 MCV MCH MCHC RDW Plt Count MPV Immature Gran % (Auto) Neut % (Auto) Lymph % (Auto) [place] % (Auto) Eos % (Auto) Baso % (Auto) Lymph # (Auto) [place] # (Auto) Eos # (Auto) Baso # (Auto) Abs Immat Gran (auto) Absolute Neuts (auto) Absolute Nucleated RBC Nucleated RBC % (auto) Smear Tech's Comments PT 11.8 INR 1.0 APTT 29.0 Anion Gap 43 H Estim Creat Clear Calc 44.2 Estimated GFR 41 POC Glucose Random Glucose 760 H* Lactic Acid Lactic Acid Fup @ 2Hr Calcium 9.0 Magnesium 2.8 H Total Bilirubin 0.7 Direct Bilirubin 0.3 AST 19 ALT 41 H Alkaline Phosphatase 198 H Ammonia 102 H Total Creatine Kinase Total Protein 8.1 H Albumin 4.2 Lipase 12 TSH Urine Color Urine Appearance Urine pH Ur Specific [place] Urine Protein Urine Glucose (UA) Urine Ketones Urine Blood Urine Nitrite Ur Leukocyte Esterase Urine Opiates Screen Ur Barbiturates Screen Ur Phencyclidine Scrn Ur Amphetamines Screen U Benzodiazepines Scrn Urine Cocaine Screen U Marijuana (THC) Screen Ethyl Alcohol Acetone, Qual Coronavirus (PCR) Influenza Type A (PCR) Influenza Type B (PCR) RSV RNA Qual (PCR) 08/05/20 08/05/20 08/05/20 12:10 13:27 13:36 MCV MCH MCHC RDW Plt Count MPV Immature Gran % (Auto) Neut % (Auto) Lymph % (Auto) [place] % (Auto) Eos % (Auto) Baso % (Auto) Lymph # (Auto) [place] # (Auto) Eos # (Auto) Baso # (Auto) Abs Immat Gran (auto) Absolute Neuts (auto) Absolute Nucleated RBC Nucleated RBC % (auto) Smear Tech's Comments PT INR APTT Anion Gap Estim Creat Clear Calc Estimated GFR POC Glucose Random Glucose Lactic Acid Lactic Acid Fup @ 2Hr 2.9 H* Calcium Magnesium Total Bilirubin Direct Bilirubin AST ALT Alkaline Phosphatase Ammonia Total Creatine Kinase 81 Total Protein Albumin Lipase 9 TSH Urine Color YELLOW Urine Appearance CLEAR Urine pH 5.5 Ur Specific [place] >= 1.030 H Urine Protein NEG Urine Glucose (UA) 500 H Urine Ketones >=80 Urine Blood NEG Urine Nitrite NEG Ur Leukocyte Esterase NEG Urine Opiates Screen Ur Barbiturates Screen Ur Phencyclidine Scrn Ur Amphetamines Screen U Benzodiazepines Scrn Urine Cocaine Screen U Marijuana (THC) Screen Ethyl Alcohol Acetone, Qual Moderate H Coronavirus (PCR) Influenza Type A (PCR) Influenza Type B (PCR) RSV RNA Qual (PCR) 08/05/20 08/05/20 08/05/20 13:36 13:38 15:09 MCV MCH MCHC RDW Plt Count MPV Immature Gran % (Auto) Neut % (Auto) Lymph % (Auto) [place] % (Auto) Eos % (Auto) Baso % (Auto) Lymph # (Auto) [place] # (Auto) Eos # (Auto) Baso # (Auto) Abs Immat Gran (auto) Absolute Neuts (auto) Absolute Nucleated RBC Nucleated RBC % (auto) Smear Tech's Comments PT INR APTT Anion Gap Estim Creat Clear Calc Estimated GFR POC Glucose 413 H* 341 H Random Glucose Lactic Acid Lactic Acid Fup @ 2Hr Calcium Magnesium Total Bilirubin Direct Bilirubin AST ALT Alkaline Phosphatase Ammonia Total Creatine Kinase Total Protein Albumin Lipase TSH Urine Color Urine Appearance Urine pH Ur Specific [place] Urine Protein Urine Glucose (UA) Urine Ketones Urine Blood Urine Nitrite Ur Leukocyte Esterase Urine Opiates Screen Not Detected Ur Barbiturates Screen Not Detected Ur Phencyclidine Scrn Not Detected Ur Amphetamines Screen Not Detected U Benzodiazepines Scrn Not Detected Urine Cocaine Screen Not Detected U Marijuana (THC) Screen POSITIVE H Ethyl Alcohol Acetone, Qual Coronavirus (PCR) Influenza Type A (PCR) Influenza Type B (PCR) RSV RNA Qual (PCR) Imaging Radiologist's Impressions: Impressions Chest X-Ray 08/05/20 09:06 IMPRESSION: No acute cardiopulmonary findings. Head CT 08/05/20 09:49 IMPRESSION: Normal noncontrast CT head. Assessment and Plan (1) Polysubstance abuse: Status: Acute Assessment: 24-year-old lady with underlying insulin dependent diabetic tests mellitus and polysubstance abuse admitted with diabetic ketoacidosis secondary to poor compliance with insulin further complicated by acute renal failure Plan: Neuro: No acute issues. Cardiac: No acute issues. Pulmonary: No acute issues. Renal: Acute renal failure, likely secondary to glucosuria. Continue IV fluid resuscitation. Non oliguric. Continue to monitor renal indices and urine output. Endo: Diabetic ketoacidosis, continue with insulin drip. GI: No acute issues. ID: Empirically covered with broad-spectrum antibiotics secondary to profound lactic acidosis. Heme/Onc: No acute issues. Psych: No acute issues. Miscellaneous: No acute issues. Prophylaxis: Heparin Diet: Nothing by mouth Critical care time spent: 45 minutes (2) Diabetic ketoacidosis: Status: Acute (3) Acute renal failure: Status: Acute
[2020-08-05 16:18] LABS: Glucose, Whole Blood 325 mg/dL (60-115)
[2020-08-05 16:32] LABS: ~Lactic Acid-LAB USE ONLY 1.3 mmol/L (0.5-2.0)
[2020-08-05 16:59] LABS: Anion Gap 29 (12-20); Blood Urea Nitrogen 20 mg/dL (9-16); Calcium 8.1 mg/dL (8.4-10.2); Carbon Dioxide 7 mmol/L (22-29); Chloride 106 mmol/L (96-108); Creatinine Clr Calc Pharmacy 69.9; Estimated Glomerular Filt Rate > 60; Glucose Random 346 mg/dL (60-115); Potassium 4.2 mmol/L (3.3-5.1); Sodium 138 mmol/L (135-145)
[2020-08-05 17:19] LABS: Glucose, Whole Blood 267 mg/dL (60-115)
[2020-08-05 18:31] LABS: Glucose, Whole Blood 282 mg/dL (60-115)
[2020-08-05] MEDS: Piperacillin Sodium/Tazobactam 2.25 GM in 0.9 % Sodium Chloride 50 ML IV (19:09)
[2020-08-05 19:15] LABS: Glucose, Whole Blood 277 mg/dL (60-115)
[2020-08-05 20:25] LABS: Glucose, Whole Blood 228 mg/dL (60-115)
[2020-08-05] MEDS: Dextrose 5 % and Lactated Ring 1,000 ML 200 ML IVCONT (20:56)
--- NOTE | 2020-08-05 21:09 | PC.NURSE ---
Patient admitted to the icu at 1500. Patient updated on plan of care. Patient continually asking to something to drink. MD trin[place] with patient having diet andrea-kimberly. Patient immediately drank 240ml, within 15 minutes patient with emesis. At this time patient was educated that small amounts would be given. Patient refused the insertion of a duff catheter in the ED. Patient has refused placement of second IV. Patient refused heparin sq. At 2049 patient IV site is no longer working OBSTETRICS TECHNICIAN aware. IVF and insulin off at this time. Will attempt placement of new iv.
[2020-08-05 21:50] LABS: Glucose, Whole Blood 274 mg/dL (60-115)
[2020-08-05 22:59] LABS: Glucose, Whole Blood 298 mg/dL (60-115)
[2020-08-06] VITALS: BP 130/76; PULSE 61; RESP 31; O2SAT 100
[2020-08-06] MEDS: Piperacillin Sodium/Tazobactam 2.25 GM in 0.9 % Sodium Chloride 50 ML IV (00:02)
[2020-08-06] MEDS: Dextrose 5 % and Lactated Ring 1,000 ML 200 ML IVCONT (00:03)
[2020-08-06 00:16] LABS: Glucose, Whole Blood 260 mg/dL (60-115)
[2020-08-06 01:00] VITALS: BP 128/67; PULSE 98; RESP 25; O2SAT 100
[2020-08-06] MEDS: ondansetron HCL 4 MG/2 ML VIAL IVPUSH (01:00)
[2020-08-06 01:08] LABS: Glucose, Whole Blood 232 mg/dL (60-115)
--- NOTE | 2020-08-06 01:59 | PM.EVENT ---
Event Note Date of Service: 08/06/20 Event Note: Overnight the patient started to request that she wanted to leave the hospital. She was alert, able to walk up to chair. She started to pull IVs, despite multiple conversations with nurse as well as myself. She was educated that she still actively in DKA, requiring IV insulin and the dangers of leaving AMA. But she continued to request to leave. AMA form signed.
--- NOTE | 2020-08-06 02:27 | PC.NURSE ---
CARE ASSUMED 23;15...AWAKE..ALERT..ORIENTED X3..SPEECH CLEAR..BP STABLE...SAO2 100% ROOM AIR...INSULIN DRIP 3.5 UNITS/HR AND D5LR 200 CC/HR...REPEATEDLY ASKING FOR JACK-NEDRA---PREVIOUSLY VOMITING PER REPORT...TAKING...ICE CHIPS AND SIPS H20...VOMITED BILIOUS EMESIS...MEDICATED WITH PRN ZOFRAN PER ICU WOOL GROWER..RESISTANT TO CARE...PATIENT STATED I'M LEAVING NOW...IT'S MY RIGHT TO LEAVE AMA ...ICU WOOL GROWER BRIDGER PRESENT AND DISCUSSED POSSIBLE RISKS OF LEAVING AMA...PATIENT SIGNED AMA...IV D/C'D...ESCORTED TO ER DEPT BY SECURITY
== END 2020-08-06 01:40 | disposition left against medical advice (07) | DRG 420 ==
LOC: HO.ED 11:46 → HO.ICU 12:11
PROVIDERS: Physician Assistant; Admitting Provider Internal Medicine Pulmonary Disease; Emergency Provider Emergency Medicine; Visit Provider Internal Medicine Pulmonary Disease
DX: E11.10 Type 2 diabetes mellitus with ketoacidosis without coma (principal); T68.XXXA Hypothermia, initial encounter; N17.9 Acute kidney failure, unspecified; F19.10 Other psychoactive substance abuse, uncomplicated; F41.9 Anxiety disorder, unspecified; X31.XXXA Exposure to excessive natural cold, initial encounter; T38.3X6A Underdosing of insulin and oral hypoglycemic [antidiabetic] drugs, initial encounter; Y92.411 Interstate highway as the place of occurrence of the external cause; Z79.4 Long term (current) use of insulin; Z79.899 Other long term (current) drug therapy
CPT/HCPCS: 0241U; 36415; 36600; 70450; 71045; 80048; 80076; 80307; 80320; 81003; 82009; 82140; 82550; 82947; 83605; 83690; 83735; 84443; 85025; 85610; 85730; 87040; 93005; 96365; 96375; 99284; 99291; J2405; J2543

== ENCOUNTER 2020-08-06 02:30 | Inpatient (IN) | payer MEDICAID, SELFPAY ==
[2020-08-05 11:03] LABS: Influenza A PCR NEGATIVE (Negative); Influenza B PCR NEGATIVE (Negative); Resp Syncy Virus RNA Qual PCR NEGATIVE (Negative); SARS COV2 PCR INHOUSE NEGATIVE (Negative)
[2020-08-06] VITALS (20 sets, daily range): BP systolic 120–144; BP diastolic 60–85; PULSE 60–115; RESP 16–33; TEMP 36.2–37.3; O2SAT 96–100; BMI 17.8; BMI 17.0
--- NOTE | ~2020-08-06 | XR_ITS ---
EXAMINATION: XR CHEST CLINICAL INFORMATION: Triple-lumen catheter placement COMPARISON: Chest radiograph yesterday TECHNIQUE: Frontal view of the chest was obtained. FINDINGS: Since yesterday's exam, a right IJ catheter has been placed with its tip at the SVC right atrial junction. No pneumothorax is seen. No significant abnormality is noted involving the heart, lungs, mediastinum, bony thorax or soft tissues. XR/XR chest 1V IMPRESSION: Status post placement of right IJ catheter in excellent position with no complications seen.
--- NOTE | 2020-08-06 03:02 | ED.GENADULT ---
HPI - General Adult General Chief complaint: Nausea/Vomiting/Diarrhea Stated complaint: Vomiting Time Seen by Provider: 08/06/20 02:42 Source: patient Mode of arrival: ambulatory Limitations: no limitations History of Present Illness HPI narrative: 24-year-old female who was admitted to the intensive care unit yesterday, 08/06/2020 for DKA/hypothermia and dehydration. The patient was in the intensive care unit and was on an insulin drip when she left against medical advice early this morning at 1:59 a.m.. The patient was still in DKA but insisted on leaving against medical advise. Apparently, she never left the hospital grounds and was vomiting multiple times. She came to the emergency department once and then left without being registered, she then returned and requested to be registered, evaluated and readmitted to the hospital for further treatment. Patient is complaining of feeling very cold, having persistent nausea and vomiting and feeling weak. She denied fever, chills, chest pain, shortness of breath, abdominal pain. Patient states she is homeless and prior to being admitted to the hospital, she states that she was not using insulin for at least 3 days. Related Data Home Medications Medication Instructions Recorded Confirmed insulin regular human [Novolin R 1 sliding scale dose SUBCUT 08/05/20 08/05/20 Regular U-100 Insuln] USEASDIRECTD Allergies Allergy/AdvReac Type Severity Reaction Status Date / Time No Known Allergies Allergy Verified 07/22/20 16:27 Review of Systems Review of Systems: Yes all other systems are reviewed and are negative [facility] Past Medical History [facility] Narrative: Patient has a history of diabetes mellitus, anxiety, substance abuse (heroin and cocaine). She does smoke cigarettes, she denies alcohol use, she does admit to using injection drugs but has not used recently. She states she is homeless. Medical History Anxiety Cocaine abuse Heroin abuse Social History Social History Household Members: None Housing: Homeless Smoking Status: Current some day smoker Tobacco Type: Cigarette Substance Use Type: Amphetamines and Heroin Advance Directives: No Advance Directives Information Provided: No Physical Exam Vital Signs: Vital Signs: Last Vital Signs Temp 97.8 F 08/06/20 02:38 Pulse 78 08/06/20 02:38 Resp 16 08/06/20 02:38 BP 134/78 08/06/20 02:38 Pulse Ox 100 08/06/20 02:38 Body Mass Index 17.8 Const: Other: Ill-appearing young woman, patient has pustules and lesions on her face and arms, she is actively vomiting, she is awake and alert and oriented to person and place. She has a very strong ketotic odor to her breath. Orientation/consciousness: oriented to person and oriented to place HENMT: Head: Yes normocephalic and Yes atraumatic Ears: external ears normal General nose exam: Normal external nose present Face and sinus: Yes other (Multiple pustules on her face and excoriated lesions) Mouth: other (Very dry oral mucosa) Teeth and gingiva: other (Very poor dentition) Throat: Yes other (No erythema or exudate) Eyes: Periorbital: periorbital findings normal Eyelids: Yes eyelids normal Conjunctivae: conjunctivae normal Sclerae: sclerae normal Corneas: corneas normal Pupils: Equal, round and reactive pupils present Direct Ophthalmoscopy: normal light reflex Neck: Neck: Yes full ROM, Yes no lymphadenopathy, Yes no meningeal signs, Yes trachea midline and Yes supple Chest: Chest palpation & inspection: normal inspection of the chest and normal palpation of entire chest wall Resp: Effort & Inspection: normal respiratory effort and able to speak in complete sentences Auscultation: clear to auscultation bilaterally Cardio: Rate: regular rate Rhythm: regular rhythm Heart sounds: S1 normal heart sound present, S2 normal heart sound present and no murmurs GI: Inspection: Yes normal to inspection Palpation (GI): Soft to palpation, nontender, no guarding, not rigid and No hepatosplenomegaly present : General: Yes no CVA tenderness Back/Spine/Pelvis: Back: no CVA tenderness Cervical Spine: normal cervical lordosis Thoracic/Lumbar Spine: thoracic and lumbar spine normal to inspection Skin: Other: Patient has pustules and excoriated lesions on her face. She also has excoriated lesions on her arms with track castelan Neuro: General: oriented to person, oriented to place and no meningeal signs Cranial nerves: Yes CN's II-XII intact bilaterally and Yes Equal, round and reactive pupils present Cognition (Neuro): normal cognition Motor exam (neuro): 5/5 motor strength present throughout Extrem: Other: Patient is able to move her extremities symmetrically, with normal strength Psych: Appearance: disheveled Mental Status: mental status grossly normal Speech and movement: Normal speech and movement present Affect: Sad affect present Attitude: cooperative Thought process: Normal thought process present Thought content: Normal thought content present Course Course Course Narrative: 24-year-old female who presents emergency department for evaluation of vomiting and weakness. The patient was admitted yesterday to the intensive care unit for DKA and left early this morning at around 1:59 a.m. against medical advice. The patient never left the hospital property and presented to the emergency department with increased nausea and vomiting. On examination, the patient has a very strong ketotic odor to her breath, she is actively vomiting. The patient's point of care glucose was 350. The patient was ordered to get normal saline at 150 cc/hour, regular insulin 5 mg IV and she was started on and insulin drip at 5 milligrams/hour. She will have a repeat point of care glucose drops to the 200 range I will switch her to D5 NS. Patient's nausea and vomiting was treated with Reglan 10 mg IV and Benadryl 50 mg IV. I did discuss the patient's presentation with the covering electro mechanical technologist, Dr. Lo and he requested that I call him back after the patient's laboratory evaluation is completed. 0400: The [place] [id number] with 80 neutrophils. H&H was normal at 13 and 41.0. Medical Decision Making Lab Data Result diagrams: 08/06/20 03:20 08/06/20 03:20 Labs: Lab Results 08/06/20 08/06/20 08/06/20 Range/Units 02:56 03:20 03:20 WBC 23.7 H (4.8-10.8) X10*3/uL RBC 4.75 (4.20-5.50) X10*6/uL Hgb 13.3 (12.0-16.0) g/dl Hct 41.0 (37-47) % MCV 86.3 D (80-98) fL MCH 28.0 (27.0-33.0) pg MCHC 32.4 (31.0-35.0) g/dl RDW 14.2 (11.0-16.0) % Plt Count 399 (160-400) X10*3/uL MPV 10.1 (9.4-12.3) fL Immature Gran % (Auto) 0.7 H (0.0-0.4) % Neut % (Auto) 88.5 H (45-73) % Lymph % (Auto) 7.6 L (20-40) % [place] % (Auto) 3.1 (2-11) % Eos % (Auto) 0.0 (0-4) % Baso % (Auto) 0.1 (0-2) % Lymph # (Auto) 1.8 (1.2-4.9) X10*3/uL [place] # (Auto) 0.7 (0.1-1.2) X10*3/uL Eos # (Auto) 0.0 (0.0-0.4) X10*3/uL Baso # (Auto) 0.0 (0.0-0.2) X10*3/uL Abs Immat Gran (auto) 0.17 H (0.00-0.03) X10*3/uL Absolute Neuts (auto) 21.0 H (2.0-8.3) X10*3/uL Absolute Nucleated RBC 0.000 (0.0-0.012) X10*3/uL Nucleated RBC % (auto) 0.0 (0.0-0.2) /100WBC POC Glucose 350 H* (60-115) mg/dL Lactic Acid 1.5 (0.5-2.0) mmol/L Discharge Plan Discharge Clinical Impression: Diabetic keto-acidosis Qualifiers: Diabetes mellitus type: type 1 Diabetes mellitus complication detail: without coma Qualified Code(s): E10.10 - Type 1 diabetes mellitus with ketoacidosis without coma Vomiting Qualifiers: Vomiting type: unspecified Vomiting Intractability: non-intractable Nausea presence: with nausea Qualified Code(s): R11.2 - Nausea with vomiting, unspecified Patient Disposition: Admitted As Inpatient
[2020-08-06 03:05] LABS: Glucose, Whole Blood 350 mg/dL (60-115)
[2020-08-06] MEDS: Insulin Regular, Human 100 UNIT/ML 3 ML VIAL IVPUSH (03:24)
[2020-08-06] MEDS: diphenhydrAMINE HCL 50 MG/ML VIAL IVPUSH (03:24)
[2020-08-06] MEDS: Metoclopramide HCl 10 MG/2 ML VIAL IVPUSH (03:25)
[2020-08-06 03:26] LABS: Basophils Percent Auto 0.1 % (0-2); Hemoglobin 13.3 g/dl (12.0-16.0); Imm Gran Abs Auto 0.17 X10*3/uL (0.00-0.03); Imm Gran Pct Auto 0.7 % (0.0-0.4); Lymphocytes Absolute Auto 1.8 X10*3/uL (1.2-4.9); Lymphocytes Percent Auto 7.6 % (20-40); Mean Corpuscular HGB Conc 32.4 g/dl (31.0-35.0); Mean Corpuscular Volume 86.3 fL (80-98); Mean Platelet Volume 10.1 fL (9.4-12.3); Monocytes Absolute Auto 0.7 X10*3/uL (0.1-1.2); Monocytes Percent Auto 3.1 % (2-11); Neutrophils Percent Auto 88.5 % (45-73); Platelet Count 399 X10*3/uL (160-400); Red Blood Count 4.75 X10*6/uL (4.20-5.50); Red Cell Distribution Width 14.2 % (11.0-16.0); SCAN SMEAR FLAG 1; White Blood Count 23.7 X10*3/uL (4.8-10.8)
[2020-08-06 03:27] LABS: MANUAL DIFF FLAG NO
--- NOTE | 2020-08-06 03:36 | PC.NURSE ---
PATIENT BLOOD SUGAR IS 350 MD AWARE .
[2020-08-06 03:48] LABS: Lactic Acid 1.5 mmol/L (0.5-2.0)
[2020-08-06] MEDS: 0.9 % Sodium Chloride 1,000 ML 150 ML IV (04:30)
[2020-08-06] MEDS: Insulin Regular/NS 100 UNIT/100 ML PLAST..BAG IVCONT ×2 (04:31→18:31)
[2020-08-06 04:40] LABS: Glucose, Whole Blood 351 mg/dL (60-115)
[2020-08-06 05:09] LABS: Delay - Chemistry DELAY
[2020-08-06 05:11] LABS: Glucose, Whole Blood 313 mg/dL (60-115)
[2020-08-06] MEDS: Lactated Ringers 1,000 ML 250 ML IVCONT (05:12)
[2020-08-06 06:13] LABS: Alanine Aminotransferase 24 U/L (0-31); Albumin Level 3.2 g/dL (3.5-5.0); Alkaline Phosphatase 135 U/L (39-117); Anion Gap 30 (12-20); Aspartate Amino Transferase 15 U/L (5-31); Bilirubin Total 0.7 mg/dL (0.0-1.0); Blood Urea Nitrogen 19 mg/dL (9-16); Calcium 8.3 mg/dL (8.4-10.2); Carbon Dioxide 9 mmol/L (22-29); Chloride 105 mmol/L (96-108); Creatinine Clr Calc Pharmacy 70.5; Estimated Glomerular Filt Rate > 60; Glucose Random 354 mg/dL (60-115); Lipase 14 U/L (8-78); Potassium 3.5 mmol/L (3.3-5.1); Sodium 140 mmol/L (135-145); Total Protein 6.2 g/dL (6.5-8.0)
[2020-08-06 06:31] LABS: Glucose, Whole Blood 278 mg/dL (60-115)
--- NOTE | 2020-08-06 06:32 | PC.NURSE ---
RE-ADMIT TO 259-1 APPROX 5AM AFTER SIGNING OUT AMA APPROX 01:50...DROWSY BUT AWAKE TO VERBAL STIMULI...RECEIVED BENEDRYL 50MG IV X1 IN ER DEPT AFTER RE-ADMISSION...VSS....RESPIRATIONS EASY..SAO2 100% ROOM AIR...LR 250 CC/HR...INSULIN DRIP 5 UNITS/HR PROGRAMMED/HUNG IN ER DEPT...INCONTINANT COPIOUS AMOUNT URINE AT ADMIT...CONTINUES TO REFUSE ALFONSO AND PRIOR TO SIGNING OUT AMA...REMAINS WITH MULTIPLE LESIONS/PAPULES OF VARIOUS AGE TO BUTTOCKS/BACK...PER ER REPORT PREVIOUS MULTIPLE EPISODES [facility]...REGLAN GIVEN IN ER DEPT..NO ACTIVE VOMITING IN ICU 5AM-PRESENT...REMAINS NPO...NSR..NO ECTOPY
[2020-08-06] MEDS: Potassium Chloride/H20 10 MEQ/100 ML PIGGYBACK 100 MEQ IV ×2 (06:47→08:23)
[2020-08-06 07:03] LABS: Glucose, Whole Blood 213 mg/dL (60-115)
[2020-08-06 08:04] LABS: Glucose, Whole Blood 138 mg/dL (60-115)
[2020-08-06 08:09] LABS: Basophils Absolute Auto 0.1 X10*3/uL (0.0-0.2); Basophils Percent Auto 0.2 % (0-2); Hematocrit 42.6 % (37-47); Imm Gran Abs Auto 0.23 X10*3/uL (0.00-0.03); Imm Gran Pct Auto 0.8 % (0.0-0.4); Lymphocytes Absolute Auto 3.5 X10*3/uL (1.2-4.9); Lymphocytes Percent Auto 11.5 % (20-40); MANUAL DIFF FLAG SCAN; Mean Corpuscular HGB Conc 32.9 g/dl (31.0-35.0); Mean Corpuscular Hemoglobin 28.5 pg (27.0-33.0); Mean Corpuscular Volume 86.8 fL (80-98); Mean Platelet Volume 9.7 fL (9.4-12.3); Monocytes Absolute Auto 0.9 X10*3/uL (0.1-1.2); Monocytes Percent Auto 3.1 % (2-11); Neutrophils Absolute Auto 25.7 X10*3/uL (2.0-8.3); Neutrophils Percent Auto 84.4 % (45-73); Platelet Count 381 X10*3/uL (160-400); Red Blood Count 4.91 X10*6/uL (4.20-5.50); Red Cell Distribution Width 14.3 % (11.0-16.0); SCAN SMEAR FLAG 1
[2020-08-06 08:11] LABS: White Blood Count 30.4 X10*3/uL (4.8-10.8)
[2020-08-06 08:31] LABS: SLIDE REVIEW VERIFIED
[2020-08-06 08:38] LABS: Phosphorus 1.9 mg/dL (2.7-4.5)
[2020-08-06] MEDS: diphenhydrAMINE HCL 50 MG/ML VIAL 25 MG IM ×2 (08:41→16:53)
[2020-08-06] MEDS: LORazepam 2 MG/ML VIAL IM ×3 (08:41→17:59)
[2020-08-06 09:03] LABS: Glucose, Whole Blood 146 mg/dL (60-115)
[2020-08-06] MEDS: Insulin Glargine,Hum.rec.anlog 100 UNIT/ML 10 ML VIAL 30 UNIT SUBCUT (09:55)
[2020-08-06] MEDS: Insulin Lispro 100 UNIT/ML 3 ML VIAL SUBCUT (09:55)
[2020-08-06 10:03] LABS: Glucose, Whole Blood 163 mg/dL (60-115)
--- NOTE | 2020-08-06 10:25 | MHC.CM.PN ---
Attempted to meet with patient to discuss demographic information and d/c planning. Pt not cooperative with CM assessment and declined to participate. Information obtained from EMR and discussions with care team. Pt is homeless and was found roadside in DKA. She reportedly hadn't taken her insulin or meds in several days. Demographic information notes pt address in [facility]. CM will attempt to reapproach pt for completion of CM assessment and assistance with D/C Planning. Pt may benefit from a CARE team consult for inpt substance abuse tx.
--- NOTE | 2020-08-06 10:58 | MHC.CLN ---
HT OF 62IN (5'2 ) USED FOR NUTRITION ASSESSMENT BMI 20.1 NORMAL
[2020-08-06 11:10] LABS: Glucose, Whole Blood 165 mg/dL (60-115)
[2020-08-06 11:58] LABS: Glucose, Whole Blood 145 mg/dL (60-115)
--- NOTE | 2020-08-06 12:21 | MHC.RECOVRN ---
Chart reviewed. Attempted to meet with pt unsuccessfully. Will continue to follow.
[2020-08-06 12:48] LABS: Anion Gap 23 (12-20); Blood Urea Nitrogen 18 mg/dL (9-16); Calcium 8.8 mg/dL (8.4-10.2); Carbon Dioxide 16 mmol/L (22-29); Chloride 108 mmol/L (96-108); Creatinine Clr Calc Pharmacy 74.3; Estimated Glomerular Filt Rate > 60; Glucose Random 152 mg/dL (60-115); Potassium 3.4 mmol/L (3.3-5.1); Sodium 144 mmol/L (135-145)
[2020-08-06 13:01] LABS: Glucose, Whole Blood 111 mg/dL (60-115)
[2020-08-06 14:02] LABS: Glucose, Whole Blood 106 mg/dL (60-115)
--- NOTE | 2020-08-06 14:31 | P.HPCC_ITS ---
History of Present Illness Date of Service: 08/06/20 Chief Complaint: Diabetic ketoacidosis 24-year-old lady with underlying history of insulin-dependent diabetes mellitus, polysubstance abuse, anxiety found unconscious by police department and brought to ER on 08/05/2020. On ER evaluation hypothermic and with profound metabolic acidosis and hyperglycemia. Patient stated that she has been without her insulin for 4 days. Patient started on IV fluid resuscitation, insulin drip, and empiric antibiotic and admitted to intensive care unit. On 08/06/2020 at approximately 1 a.m. patient left against medical advise, but was readmitted MAC at approximately 4:00 a.m. and restarted on insulin drip. This a.m. patient demanded to leave against medical advise again and pulled out her IV's. Patient clearly lacking capacity to make make logical decisions regarding her own medical treatment requiring intramuscular Ativan and Benadryl for sedation. Review of Systems Constitutional: Constitutional: Denies daytime sleepiness, Denies excessive sweating, Denies fatigue, Denies fever(s), Denies lethargy, Denies malaise, Denies night sweats, Denies snoring and Denies weight loss Eyes: Eyes: Denies blurry vision and Denies itchy eyes ENT: Denies nasal congestion, Denies post nasal drip, Denies sinus pain, Denies sinus pressure and Denies other ( Thrush) Cardiovascular: Cardiovascular: Denies chest pain, Denies pedal edema, Denies dyspnea, Denies orthopnea and Denies paroxysmal nocturnal dyspnea Respiratory: Respiratory: Denies cough, Denies hemoptysis, Denies excessive phlegm production, Denies dyspnea, Denies snoring and Denies wheezing Gastrointestinal: Gastrointestinal: Denies abdominal pain, Denies heartburn, Reports nausea and Reports vomiting Musculoskeletal: Musculoskeletal: Denies myalgias, Denies arthralgias and Denies joint swelling Integumentary/Breasts: Skin/Breast: Reports rash Neurologic: Denies memory loss and Denies seizure-like activity Psychiatric: Psychiatric: Denies abnormal sleep pattern, Denies anxiety and Denies memory loss Endocrine: Endocrine: Denies excessive sweating, Denies fatigue and Denies heat intolerance Hematologic/Lymphatic: Hematologic/Lymphatic: Denies easy bruising Allergic/Immunologic: Allergic/Immunologic: Denies itchy eyes, Denies seasonal rhinorrhea and Denies wheezing PMFSH Past Medical History Medical History Anxiety Cocaine abuse Heroin abuse Social History Social History Household Members: None Housing: Homeless Smoking Status: Current some day smoker Tobacco Type: Cigarette Substance Use Type: Amphetamines and Heroin Currently Displaying Signs/Symptoms of Drug Intoxication Withdrawal: No Advance Directives: No Advance Directives Information Provided: No Do you have thoughts of harming others: None Do you have a plan to hurt others: No Plan Meds Allergies Allergy/AdvReac Type Severity Reaction Status Date / Time No Known Allergies Allergy Verified 07/22/20 16:27 Active Medications: Current Medications Generic Name Dose Route Start Last Admin Trade Name Freq PRN Reason Stop Dose Admin Insulin Human Regular 100 unit in 100 mls @ 0 mls/hr 08/06/20 03:00 08/06/20 12:46 Myxredlin IVCONT Infused .Q0M MIKKI Titration Protocol Per Protocol Dextrose/Lactated Ringer's 1,000 mls @ 150 mls/hr 08/06/20 08:45 08/06/20 12:45 D5lr IVCONT Not Given .Q6H40M MIKKI Ondansetron HCl 4 mg 08/06/20 04:47 Ondansetron Hcl 4 Mg/2 Ml Vial IVPUSH Q6H PRN Nausea Home Medications Medication Instructions Recorded Confirmed Last Taken Type insulin regular human [Novolin R 1 sliding scale dose SUBCUT 08/05/20 08/05/20 Unknown History Regular U-100 Insuln] USEASDIRECTD Physical Exam Vital Signs: Vital Signs: Last Vital Signs Temp 98.3 F 08/06/20 12:00 Pulse 88 08/06/20 14:00 Resp 29 H 08/06/20 14:00 BP 134/83 08/06/20 14:00 Pulse Ox 100 08/06/20 14:00 Body Mass Index 17.0 Const: General: no acute distress and lethargic (But arousable) Eyes: Sclerae: sclerae normal EOM: EOMs intact bilaterally Neck: Neck: Yes no lymphadenopathy, Yes trachea midline and Yes supple Resp: Effort & Inspection: normal respiratory effort and no respiratory distress Auscultation: clear to auscultation bilaterally Cardio: Rate: regular rate Rhythm: regular rhythm Heart sounds: no gallops, no murmurs and no rubs GI: Palpation (GI): Soft to palpation and Other GI palpation findings present ( Nontender) Auscultation: normal bowel sounds Extrem: General: Yes no pedal edema, No clubbing and No cyanosis Results Labs CBC and Chem 7: 08/06/20 08:00 08/06/20 11:58 Labs: Laboratory Results - last 24 hr 08/05/20 08/06/20 08/06/20 10:13 02:56 03:20 MCV 86.3 D MCH 28.0 MCHC 32.4 RDW 14.2 Plt Count 399 MPV 10.1 Immature Gran % (Auto) 0.7 H Neut % (Auto) 88.5 H Lymph % (Auto) 7.6 L Howell % (Auto) 3.1 Eos % (Auto) 0.0 Baso % (Auto) 0.1 Lymph # (Auto) 1.8 Howell # (Auto) 0.7 Eos # (Auto) 0.0 Baso # (Auto) 0.0 Abs Immat Gran (auto) 0.17 H Absolute Neuts (auto) 21.0 H Absolute Nucleated RBC 0.000 Nucleated RBC % (auto) 0.0 Smear Tech's Comments Anion Gap Estim Creat Clear Calc Estimated GFR POC Glucose 350 H* Random Glucose Lactic Acid Calcium Phosphorus Magnesium Total Bilirubin AST ALT Alkaline Phosphatase Total Protein Albumin Lipase Specimen Comment Coronavirus (PCR) NEGATIVE Influenza Type A (PCR) NEGATIVE Influenza Type B (PCR) NEGATIVE RSV RNA Qual (PCR) NEGATIVE 08/06/20 08/06/20 08/06/20 03:20 04:34 05:03 MCV MCH MCHC RDW Plt Count MPV Immature Gran % (Auto) Neut % (Auto) Lymph % (Auto) Howell % (Auto) Eos % (Auto) Baso % (Auto) Lymph # (Auto) Howell # (Auto) Eos # (Auto) Baso # (Auto) Abs Immat Gran (auto) Absolute Neuts (auto) Absolute Nucleated RBC Nucleated RBC % (auto) Smear Tech's Comments Anion Gap Estim Creat Clear Calc Estimated GFR POC Glucose 351 H* 313 H Random Glucose Lactic Acid 1.5 Calcium Phosphorus Magnesium Total Bilirubin AST ALT Alkaline Phosphatase Total Protein Albumin Lipase Specimen Comment Coronavirus (PCR) Influenza Type A (PCR) Influenza Type B (PCR) RSV RNA Qual (PCR) 08/06/20 08/06/20 08/06/20 05:08 05:27 06:18 MCV MCH MCHC RDW Plt Count MPV Immature Gran % (Auto) Neut % (Auto) Lymph % (Auto) Howell % (Auto) Eos % (Auto) Baso % (Auto) Lymph # (Auto) Howell # (Auto) Eos # (Auto) Baso # (Auto) Abs Immat Gran (auto) Absolute Neuts (auto) Absolute Nucleated RBC Nucleated RBC % (auto) Smear Tech's Comments Anion Gap 30 H Estim Creat Clear Calc 70.5 Estimated GFR > 60 POC Glucose 278 H Random Glucose 354 H* Lactic Acid Calcium 8.3 L Phosphorus Magnesium Total Bilirubin 0.7 AST 15 ALT 24 Alkaline Phosphatase 135 H D Total Protein 6.2 L D Albumin 3.2 L D Lipase 14 Specimen Comment DELAY Coronavirus (PCR) Influenza Type A (PCR) Influenza Type B (PCR) RSV RNA Qual (PCR) 08/06/20 08/06/20 08/06/20 06:57 08:00 08:00 MCV 86.8 MCH 28.5 MCHC 32.9 RDW 14.3 Plt Count 381 MPV 9.7 Immature Gran % (Auto) 0.8 H Neut % (Auto) 84.4 H Lymph % (Auto) 11.5 L Howell % (Auto) 3.1 Eos % (Auto) 0.0 Baso % (Auto) 0.2 Lymph # (Auto) 3.5 Howell # (Auto) 0.9 Eos # (Auto) 0.0 Baso # (Auto) 0.1 Abs Immat Gran (auto) 0.23 H Absolute Neuts (auto) 25.7 H Absolute Nucleated RBC 0.000 Nucleated RBC % (auto) 0.0 Smear Tech's Comments VERIFIED Anion Gap Estim Creat Clear Calc Estimated GFR POC Glucose 213 H Random Glucose Lactic Acid Calcium Phosphorus 1.9 L Magnesium 2.0 Total Bilirubin AST ALT Alkaline Phosphatase Total Protein Albumin Lipase Specimen Comment Coronavirus (PCR) Influenza Type A (PCR) Influenza Type B (PCR) RSV RNA Qual (PCR) 08/06/20 08/06/20 08/06/20 08:00 08:58 09:54 MCV MCH MCHC RDW Plt Count MPV Immature Gran % (Auto) Neut % (Auto) Lymph % (Auto) Howell % (Auto) Eos % (Auto) Baso % (Auto) Lymph # (Auto) Howell # (Auto) Eos # (Auto) Baso # (Auto) Abs Immat Gran (auto) Absolute Neuts (auto) Absolute Nucleated RBC Nucleated RBC % (auto) Smear Tech's Comments Anion Gap Estim Creat Clear Calc Estimated GFR POC Glucose 138 H 146 H 163 H Random Glucose Lactic Acid Calcium Phosphorus Magnesium Total Bilirubin AST ALT Alkaline Phosphatase Total Protein Albumin Lipase Specimen Comment Coronavirus (PCR) Influenza Type A (PCR) Influenza Type B (PCR) RSV RNA Qual (PCR) 08/06/20 08/06/20 08/06/20 11:04 11:51 11:58 MCV MCH MCHC RDW Plt Count MPV Immature Gran % (Auto) Neut % (Auto) Lymph % (Auto) Howell % (Auto) Eos % (Auto) Baso % (Auto) Lymph # (Auto) Howell # (Auto) Eos # (Auto) Baso # (Auto) Abs Immat Gran (auto) Absolute Neuts (auto) Absolute Nucleated RBC Nucleated RBC % (auto) Smear Tech's Comments Anion Gap Cancelled Estim Creat Clear Calc Cancelled Estimated GFR Cancelled POC Glucose 165 H 145 H Random Glucose Cancelled Lactic Acid Calcium Cancelled Phosphorus Magnesium Total Bilirubin AST ALT Alkaline Phosphatase Total Protein Albumin Lipase Specimen Comment Coronavirus (PCR) Influenza Type A (PCR) Influenza Type B (PCR) RSV RNA Qual (PCR) 08/06/20 08/06/20 08/06/20 11:58 12:54 13:56 MCV MCH MCHC RDW Plt Count MPV Immature Gran % (Auto) Neut % (Auto) Lymph % (Auto) Howell % (Auto) Eos % (Auto) Baso % (Auto) Lymph # (Auto) Howell # (Auto) Eos # (Auto) Baso # (Auto) Abs Immat Gran (auto) Absolute Neuts (auto) Absolute Nucleated RBC Nucleated RBC % (auto) Smear Tech's Comments Anion Gap 23 H Estim Creat Clear Calc 74.3 Estimated GFR > 60 POC Glucose 111 106 Random Glucose 152 H D Lactic Acid Calcium 8.8 D Phosphorus Magnesium Total Bilirubin AST ALT Alkaline Phosphatase Total Protein Albumin Lipase Specimen Comment Coronavirus (PCR) Influenza Type A (PCR) Influenza Type B (PCR) RSV RNA Qual (PCR) Assessment and Plan (1) Acute renal failure: Status: Acute Assessment: 24-year-old lady with underlying insulin dependent diabetic tests mellitus and polysubstance abuse admitted with diabetic ketoacidosis sec ondary to poor compliance with insulin further complicated by acute renal failure Plan: Neuro: No acute issues. Cardiac: No acute issues. Pulmonary: No acute issues. Renal: Acute renal failure, likely secondary to glucosuria, improving. Non oliguric. Continue to monitor renal indices and urine output. Endo: Diabetic ketoacidosis, continue with insulin. GI: No acute issues. ID: No acute issues. Heme/Onc: No acute issues. Psych: No acute issues. Miscellaneous: No acute issues. Prophylaxis: Heparin Diet: Nothing by mouth Critical care time spent: 45 minutes (2) Diabetic ketoacidosis: Status: Acute (3) Polysubstance abuse: Status: Acute Critical Care Time 45 minutes
--- NOTE | 2020-08-06 14:40 | PC.NURSE ---
pt vague and forgetful, asking for apple juice, pt is NPO per md, trailed ice water, pt vomited all over self and bed, pt was cleaned up, pt pulled out both IV's because she stated I am leaving because I want something to drink md at bedside, attempted IV access, unsuccessful, pt medicated per orders, sleeping in bed, incontinent of urine, asked pt if she feels urge to urinate, she did not reply, discussed with pt that we will take her to the bathroom if she rings the parks and tells us when she has to go, pt received sub q insulin, remains on q1h POC, Xiomara Louise at bedside, pt sleeping at this time, case mgmt to speak with patient when pt awake, will cont to monitor
[2020-08-06 15:28] LABS: Glucose, Whole Blood 101 mg/dL (60-115)
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
[2020-08-06 16:30] LABS: Glucose, Whole Blood 106 mg/dL (60-115)
[2020-08-06 17:06] LABS: Anion Gap 22 (12-20); Blood Urea Nitrogen 17 mg/dL (9-16); Calcium 8.3 mg/dL (8.4-10.2); Carbon Dioxide 15 mmol/L (22-29); Chloride 111 mmol/L (96-108); Creatinine Clr Calc Pharmacy 82.5; Estimated Glomerular Filt Rate > 60; Glucose Random 115 mg/dL (60-115); Potassium 3.7 mmol/L (3.3-5.1); Sodium 144 mmol/L (135-145)
[2020-08-06 17:18] LABS: Glucose, Whole Blood 119 mg/dL (60-115)
[2020-08-06] MEDS: Ketamine HCl 500 MG/5 ML VIAL 150 MG IM (17:58)
[2020-08-06] MEDS: Ketamine HCl 500 MG/5 ML VIAL 100 MG IM (18:00)
[2020-08-06] MEDS: dexmedeTOMIDidine HCL/NS 400 MCG/100 ML INFUS..BTL IVCONT (18:10)
--- NOTE | 2020-08-06 18:22 | W.PM.CCHP ---
Procedures Central Line Placement Right IJ: Central Line Comments: Internal jugular triple-lumen central venous catheter placed emergently under ultrasound guidance and usual sterile conditions with no immediate complications for medication delivery. X-ray for line position is pending.
--- NOTE | 2020-08-06 18:23 | P.PNCC_ITS ---
Critical Care Event Note Summary Date of Service: 08/06/20 Code activated: No Narrative: Patient uncooperative with care requiring high-dose sedatives with no IV access. Intubation planned for administration of high-dose sedatives and insulin drip. With patient uncooperative with care and no IV available IM sedation with ketamine and at to un attempted for the planned intubation. However, patient with extremely high tolerance being awake after 250 mg of IM ke tamine and from mg IM Ativan. Intubation aborted, right internal jugular central venous line placed while patient was more cooperative with care. Insulin drip, Precedex drip, and IV fluids started. Addition critical care time: 30 minutes excluding separately billable procedures. Critical Care Time (minutes): 30
[2020-08-06 18:26] LABS: Glucose, Whole Blood 176 mg/dL (60-115)
[2020-08-06 19:06] LABS: Glucose, Whole Blood 165 mg/dL (60-115)
[2020-08-06 20:04] LABS: Glucose, Whole Blood 153 mg/dL (60-115)
[2020-08-06 21:25] LABS: Glucose, Whole Blood 94 mg/dL (60-115)
[2020-08-06 22:46] LABS: Glucose, Whole Blood 56 mg/dL (60-115)
[2020-08-06 22:46] LABS: Glucose, Whole Blood 55 mg/dL (60-115)
[2020-08-06 22:49] LABS: Carbon Dioxide 25 mmol/L (22-29)
[2020-08-06 22:52] LABS: Anion Gap 12 (12-20); Blood Urea Nitrogen 15 mg/dL (9-16); Calcium 8.3 mg/dL (8.4-10.2); Chloride 109 mmol/L (96-108); Creatinine Clr Calc Pharmacy 92.8; Estimated Glomerular Filt Rate > 60; Glucose Random 67 mg/dL (60-115); Potassium 3.1 mmol/L (3.3-5.1); Sodium 143 mmol/L (135-145)
[2020-08-06 23:17] LABS: Glucose, Whole Blood 175 mg/dL (60-115)
[2020-08-07] VITALS (16 sets, daily range): BP systolic 102–137; BP diastolic 55–95; PULSE 73–95; RESP 16–34; TEMP 36–37.8; O2SAT 92–100; BMI 19.8
--- NOTE | 2020-08-07 00:07 | PC.NURSE ---
Patient removed IV earlier today. Unable to obtain IV access. Patient stating I want to leave Track Inspecting Supervisor in to see patient updated pt on her condition and patient reminded she is unable to leave and make competent decisions at this time. Patient sedated and TLC inserted into RIJ , tolerated well. Precedex 0.4 mcg/kg , Insulin drip 2u/hr, D5LR at 100 ml/hr ordered/administered. POC check Q1H . At 2240 POC 56, insulin drip turned off , 1 amp of D50 given per order. POC now 175 , Insulin drip resumed. D5LR increased to 150 ml/hr. Patient not urinating , bladder scanned for 376 ml . Sanchez catheter inserted per order, draining CYU. Patient resting at present time, VSS , will continue to zenia.
[2020-08-07 00:31] LABS: Glucose, Whole Blood 156 mg/dL (60-115)
[2020-08-07] MEDS: Potassium Chloride/H20 40 MEQ/100 ML PIGGYBACK 100 MEQ IV (01:06)
[2020-08-07 01:45] LABS: Glucose, Whole Blood 127 mg/dL (60-115)
[2020-08-07] MEDS: dexmedeTOMIDidine HCL/NS 400 MCG/100 ML INFUS..BTL 9.6 MCG IVCONT (02:15)
[2020-08-07] MEDS: Dextrose 5 % and Lactated Ring 1,000 ML 150 ML IVCONT ×2 (02:23→11:30)
[2020-08-07 02:49] LABS: Glucose, Whole Blood 121 mg/dL (60-115)
[2020-08-07 03:40] LABS: Glucose, Whole Blood 150 mg/dL (60-115)
[2020-08-07 04:51] LABS: Glucose, Whole Blood 124 mg/dL (60-115)
[2020-08-07 05:39] LABS: MANUAL DIFF FLAG NO
[2020-08-07 05:48] LABS: Basophils Percent Auto 0.1 % (0-2); Eosinophils Percent Auto 0.2 % (0-4); Hematocrit 30.9 % (37-47); Hemoglobin 10.1 g/dl (12.0-16.0); Imm Gran Abs Auto 0.06 X10*3/uL (0.00-0.03); Imm Gran Pct Auto 0.4 % (0.0-0.4); Lymphocytes Absolute Auto 3.4 X10*3/uL (1.2-4.9); Lymphocytes Percent Auto 24.3 % (20-40); Mean Corpuscular HGB Conc 32.7 g/dl (31.0-35.0); Mean Corpuscular Hemoglobin 28.5 pg (27.0-33.0); Mean Corpuscular Volume 87.3 fL (80-98); Mean Platelet Volume 9.7 fL (9.4-12.3); Monocytes Absolute Auto 0.7 X10*3/uL (0.1-1.2); Monocytes Percent Auto 5.2 % (2-11); Neutrophils Absolute Auto 9.9 X10*3/uL (2.0-8.3); Neutrophils Percent Auto 69.8 % (45-73); Platelet Count 275 X10*3/uL (160-400); Red Blood Count 3.54 X10*6/uL (4.20-5.50); Red Cell Distribution Width 14.5 % (11.0-16.0); White Blood Count 14.1 X10*3/uL (4.8-10.8)
[2020-08-07] MEDS: Insulin Glargine,Hum.rec.anlog 100 UNIT/ML 10 ML VIAL 15 UNIT SUBCUT (05:55)
[2020-08-07 06:09] LABS: Glucose, Whole Blood 143 mg/dL (60-115)
--- NOTE | 2020-08-07 06:11 | PC.NURSE ---
CARE ASSUMED 23;15...napping initially...precedex drip 0.4...d5lr 150 cc/hr & insulin drip 1 unit/hr...insulin weaned to 0.5 u/hr per mar/paper flow sheet per icu petroleum refinery laborer...duff draining 30-40 cc/hr...petroleum refinery laborer aware..agitated when awake...states i need a drink--i'm leaving if i can't get a drink ...disoriented to recent events/hospital course of events..educated rationale for current npo status...attempting to pull on lines ..precedex titrated to 0.8 with effect....lantus 15 units sc this am and iv fluids weaned to 100 cc/hr per petroleum refinery laborer...to d/c insulin drip approx 7am...to maintain iv fluids 100 cc/hr d/t npo status...nsr..no ectopy
[2020-08-07 06:22] LABS: Albumin Level 2.7 g/dL (3.5-5.0); Anion Gap 11 (12-20); Blood Urea Nitrogen 13 mg/dL (9-16); Calcium 8.1 mg/dL (8.4-10.2); Carbon Dioxide 26 mmol/L (22-29); Chloride 110 mmol/L (96-108); Creatinine Clr Calc Pharmacy 101.2; Estimated Glomerular Filt Rate > 60; Glucose Random 130 mg/dL (60-115); Magnesium 1.7 mg/dL (1.6-2.6); Phosphorus 1.9 mg/dL (2.7-4.5); Potassium 3.8 mmol/L (3.3-5.1); Sodium 143 mmol/L (135-145)
[2020-08-07 06:54] LABS: Glucose, Whole Blood 131 mg/dL (60-115)
[2020-08-07 08:09] LABS: Glucose, Whole Blood 124 mg/dL (60-115)
[2020-08-07] MEDS: ondansetron HCL 4 MG/2 ML VIAL IVPUSH (08:24)
[2020-08-07] MEDS: Potassium Phosphate 30 MMOL in 0.9 % Sodium Chloride 500 ML 85 MMOL IV (10:40)
[2020-08-07] MEDS: LORazepam 2 MG/ML VIAL IVPUSH ×2 (10:42→13:46)
[2020-08-07 12:03] LABS: Glucose, Whole Blood 126 mg/dL (60-115)
[2020-08-07] MEDS: diphenhydrAMINE HCL 50 MG/ML VIAL IVPUSH (13:46)
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
--- NOTE | 2020-08-07 14:37 | PM.CCPN ---
Subjective Subjective Date of Service: 08/07/20 Interval History: 24-year-old lady with underlying history of insulin-dependent diabetes mellitus, polysubstance abuse, anxiety found unconscious by police department and brought to ER on 08/05/2020. On ER evaluation hypothermic and with profound metabolic acidosis and hyperglycemia. Patient stated that she has been without her insulin for 4 days. Patient started on IV fluid resuscitation, insulin drip, and empiric antibiotic and admitted to intensive care unit. On 08/06/2020 at approximately 1 a.m. patient left against medical advise, but was readmitted MAC at approximately 4:00 a.m. and restarted on insulin drip. 08/06/2020 at 10a.m. patient demanded to leave against medical advise again and pulled out her IV's. Patient clearly lacking capacity to make make logical decisions regarding her own medical treatment requiring intramuscular Ativan and Benadryl for sedation. Right IJ TLC placed for vascular access. Drip fluid resuscitation. She required Ativan for intermittent sedation. Has been titrated off insulin drip and is now on subcu insulin protocol. Physical Exam Vital Signs: Vital Signs: Last Vital Signs Temp 100.0 F 08/07/20 12:00 Pulse 94 08/07/20 14:00 Resp 22 H 08/07/20 14:00 BP 123/80 08/07/20 14:00 Pulse Ox 93 08/07/20 14:00 Body Mass Index 19.8 Const: General: no acute distress, anxious (Intermittently) and ill appearing Eyes: Sclerae: sclerae normal EOM: EOMs intact bilaterally Neck: Neck: Yes no lymphadenopathy, Yes trachea midline and Yes supple Resp: Effort & Inspection: normal respiratory effort and no respiratory distress Auscultation: clear to auscultation bilaterally Cardio: Rate: regular rate Rhythm: regular rhythm Heart sounds: no gallops, no murmurs and no rubs GI: Palpation (GI): Soft to palpation and Other GI palpation findings present ( Nontender) Auscultation: normal bowel sounds Extrem: General: Yes no pedal edema, No clubbing and No cyanosis Objective Data Labs CBC & Chem 7: 08/07/20 05:15 08/07/20 05:15 Labs: Laboratory Results - last 24 hr 04/21/21 04/21/21 04/21/21 15:19 16:06 16:26 WBC RBC Hgb Hct MCV MCH MCHC RDW Plt Count MPV Immature Gran % (Auto) Neut % (Auto) Lymph % (Auto) [place] % (Auto) Eos % (Auto) Baso % (Auto) Lymph # (Auto) [place] # (Auto) Eos # (Auto) Baso # (Auto) Abs Immat Gran (auto) Absolute Neuts (auto) Absolute Nucleated RBC Nucleated RBC % (auto) Sodium 144 Potassium 3.7 Chloride 111 H Carbon Dioxide 15 L Anion Gap 22 H BUN 17 H Creatinine 0.81 Estim Creat Clear Calc 82.5 Estimated GFR > 60 POC Glucose 101 106 Random Glucose 115 Calcium 8.3 L Phosphorus Magnesium Albumin 08/06/20 08/06/20 08/06/20 17:15 18:21 19:03 WBC RBC Hgb Hct MCV MCH MCHC RDW Plt Count MPV Immature Gran % (Auto) Neut % (Auto) Lymph % (Auto) [place] % (Auto) Eos % (Auto) Baso % (Auto) Lymph # (Auto) [place] # (Auto) Eos # (Auto) Baso # (Auto) Abs Immat Gran (auto) Absolute Neuts (auto) Absolute Nucleated RBC Nucleated RBC % (auto) Sodium Potassium Chloride Carbon Dioxide Anion Gap BUN Creatinine Estim Creat Clear Calc Estimated GFR POC Glucose 119 H 176 H 165 H Random Glucose Calcium Phosphorus Magnesium Albumin 08/06/20 08/06/20 08/06/20 19:57 21:22 22:09 WBC RBC Hgb Hct MCV MCH MCHC RDW Plt Count MPV Immature Gran % (Auto) Neut % (Auto) Lymph % (Auto) [place] % (Auto) Eos % (Auto) Baso % (Auto) Lymph # (Auto) [place] # (Auto) Eos # (Auto) Baso # (Auto) Abs Immat Gran (auto) Absolute Neuts (auto) Absolute Nucleated RBC Nucleated RBC % (auto) Sodium 143 Potassium 3.1 L Chloride 109 H Carbon Dioxide 25 Anion Gap 12 BUN 15 Creatinine 0.72 Estim Creat Clear Calc 92.8 Estimated GFR > 60 POC Glucose 153 H 94 Random Glucose 67 D Calcium 8.3 L Phosphorus Magnesium Albumin 08/06/20 08/06/20 08/06/20 22:41 22:43 23:14 WBC RBC Hgb Hct MCV MCH MCHC RDW Plt Count MPV Immature Gran % (Auto) Neut % (Auto) Lymph % (Auto) [place] % (Auto) Eos % (Auto) Baso % (Auto) Lymph # (Auto) [place] # (Auto) Eos # (Auto) Baso # (Auto) Abs Immat Gran (auto) Absolute Neuts (auto) Absolute Nucleated RBC Nucleated RBC % (auto) Sodium Potassium Chloride Carbon Dioxide Anion Gap BUN Creatinine Estim Creat Clear Calc Estimated GFR POC Glucose 56 L* 55 L* 175 H Random Glucose Calcium Phosphorus Magnesium Albumin 08/07/20 08/07/20 08/07/20 00:27 01:42 02:45 WBC RBC Hgb Hct MCV MCH MCHC RDW Plt Count MPV Immature Gran % (Auto) Neut % (Auto) Lymph % (Auto) [place] % (Auto) Eos % (Auto) Baso % (Auto) Lymph # (Auto) [place] # (Auto) Eos # (Auto) Baso # (Auto) Abs Immat Gran (auto) Absolute Neuts (auto) Absolute Nucleated RBC Nucleated RBC % (auto) Sodium Potassium Chloride Carbon Dioxide Anion Gap BUN Creatinine Estim Creat Clear Calc Estimated GFR POC Glucose 156 H 127 H 121 H Random Glucose Calcium Phosphorus Magnesium Albumin 08/07/20 08/07/20 08/07/20 03:36 04:39 05:15 WBC 14.1 H RBC 3.54 L D Hgb 10.1 L D Hct 30.9 L D MCV 87.3 MCH 28.5 MCHC 32.7 RDW 14.5 Plt Count 275 D MPV 9.7 Immature Gran % (Auto) 0.4 Neut % (Auto) 69.8 Lymph % (Auto) 24.3 [place] % (Auto) 5.2 Eos % (Auto) 0.2 Baso % (Auto) 0.1 Lymph # (Auto) 3.4 [place] # (Auto) 0.7 Eos # (Auto) 0.0 Baso # (Auto) 0.0 Abs Immat Gran (auto) 0.06 H Absolute Neuts (auto) 9.9 H Absolute Nucleated RBC 0.000 Nucleated RBC % (auto) 0.0 Sodium Potassium Chloride Carbon Dioxide Anion Gap BUN Creatinine Estim Creat Clear Calc Estimated GFR POC Glucose 150 H 124 H Random Glucose Calcium Phosphorus Magnesium Albumin 08/07/20 08/07/20 08/07/20 05:15 06:05 06:52 WBC RBC Hgb Hct MCV MCH MCHC RDW Plt Count MPV Immature Gran % (Auto) Neut % (Auto) Lymph % (Auto) [place] % (Auto) Eos % (Auto) Baso % (Auto) Lymph # (Auto) [place] # (Auto) Eos # (Auto) Baso # (Auto) Abs Immat Gran (auto) Absolute Neuts (auto) Absolute Nucleated RBC Nucleated RBC % (auto) Sodium 143 Potassium 3.8 D Chloride 110 H Carbon Dioxide 26 Anion Gap 11 L BUN 13 Creatinine 0.66 Estim Creat Clear Calc 101.2 Estimated GFR > 60 POC Glucose 143 H 131 H Random Glucose 130 H D Calcium 8.1 L Phosphorus 1.9 L Magnesium 1.7 Albumin 2.7 L 08/07/20 08/07/20 08:05 11:59 WBC RBC Hgb Hct MCV MCH MCHC RDW Plt Count MPV Immature Gran % (Auto) Neut % (Auto) Lymph % (Auto) [place] % (Auto) Eos % (Auto) Baso % (Auto) Lymph # (Auto) [place] # (Auto) Eos # (Auto) Baso # (Auto) Abs Immat Gran (auto) Absolute Neuts (auto) Absolute Nucleated RBC Nucleated RBC % (auto) Sodium Potassium Chloride Carbon Dioxide Anion Gap BUN Creatinine Estim Creat Clear Calc Estimated GFR POC Glucose 124 H 126 H Random Glucose Calcium Phosphorus Magnesium Albumin Microbiology Microbiology Results: Microbiology 08/06/20 11:58 Blood - Venous Blood Culture - Preliminary No growth after 24 hours. 08/05/20 10:14 Blood - Venous Blood Culture - Preliminary No growth after 48 hours. Progress Note: A&P Assessment and plan (1) Diabetic ketoacidosis: Status: Acute Assessment and Plan: Assessment: 24-year-old lady with underlying insulin dependent diabetic tests mellitus and polysubstance abuse admitted with diabetic ketoacidosis secondary to poor compliance with insulin further complicated by acute renal failure Plan: Neuro: No acute issues. Cardiac: No acute issues. Pulmonary: No acute issues. Renal: Acute renal failure, likely secondary to glucosuria, resolved. Non oliguric. Continue to monitor renal indices and urine output. Endo: Diabetic ketoacidosis, titrated off insulin drip, continue with subcutaneous insulin protocol. GI: No acute issues. ID: No acute issues. Heme/Onc: No acute issues. Psych: Patient continues to have a lack of capacity to make rational decision but he medical care. Psychiatry evaluation including addiction team requested. Miscellaneous: No acute issues. Prophylaxis: Heparin Diet: Diabetic Critical care time spent: 45 minutes (2) Acute renal failure: Status: Acute (3) Polysubstance abuse: Status: Acute (4) Anxiety: Status: Inactive Critical Care Time Critical Care Time (minutes): 30
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
[2020-08-07 16:19] LABS: Glucose, Whole Blood 115 mg/dL (60-115)
[2020-08-07] MEDS: Morphine Sulfate 2 MG/ML CARTRIDGE IVPUSH (16:20)
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
--- NOTE | 2020-08-07 18:52 | P.DS_ITS ---
DS: Providers Provider Date of Service: 08/21/20 Date of admission: 08/06/20 03:36 Primary care physician: Alix Padilla MD Consults: 08/06/20 13:21 Consult to Psychiatry Routine Consulting Provider: Xiomara Louise Reason for consultation: Capacity assessment Has provider been notified: No 08/07/20 15:58 Consult to Care Team Stat Comment: Reason for consultation: potential for self harm d/t not taking life sustaining medications DS: Diagnosis Discharge Diagnosis (1) Diabetic ketoacidosis: Status: Acute (2) Acute renal failure: Status: Acute (3) Polysubstance abuse: Status: Acute (4) Anxiety: Status: Inactive DS: Medications Discharge Medications Home Medications: Home Medications Medication Instructions Recorded Confirmed insulin regular human [Novolin R 1 sliding scale dose SUBCUT 08/05/20 08/05/20 Regular U-100 Insuln] USEASDIRECTD DS: Summary Hospital Course Hospital Course: 24 year female who tells me that she has type diabetes since age 10 and takes lantus and humalog she has substance use desorder including heroin, meth and others. She was admitted to the ICU for DKA (see ICU assessment for detail). Reported she was in ED earlier and tried to leave against medical advise but was in poor condition and return and was subsequently admitted through ICU where she required IVF and insulin via central line and DKA resolved and was transfer to medical floor. Due to change in mental state at that time, it was it was determined in the ICU that she was incapable of making decision and so Psych consult was requested by the ICU Doctor. An attempt was made by the Psychiatric service to assess her on 08/06 but was incomplete as she was too sedated. Patien't was succesfully treated for DKA and ultimately her mental statusus returned to baseline alert and oriented and able to communicate the circumstances that brought her to the hospital. Following her transfer to medical floor she insisted on having central line remove and to leave and so she can leave. I spoke to her at [facility] with Psychiatric nurse and patient RN to try and meet her need but insisted she no longer needed to be in the hospital and that it is my right . She was alert and oriented to self, time and plce and was able to tell me the circumstance that brought her to the her in the hospital, she is aware of her challenges social situation. She admit that drug is a problem for her and will work on it. I offer to start her on suboxone but decline. She did not exubhit any sing of opioid withdrawal or intoxication. When asked how she intend to take care of herself post discharge, she ralates that she has access to insulin and vow she will take. I run the case by Psych Dr. Hennessy who was not able to see patient's at that tiem but based on on the available information, there was no grounds to hold the patient against her will. Patient's acute medical issues at this point have resolved. Her vitals are normal, she is not showing any sings of confusion or aberant behavior at this time and could not just physically or otherwise chemically restraint her against her will. She proceeded to sign against medical advised and was aware of possible her condition including but not limited to diabetes complication, opioid use complications and possibly . She understood this and was able to state it in her own words and proceed to sign against medical adivse. I stressed the importance of medication complicance and to seek help with illicit substance use. Time Spent with Patient Time attestation: Total time spent providing and/or coordinating discharge services: Discharge coordination time: Greater than 30 minutes Physical Exam Vital Signs: Vital Signs: Last Vital Signs Temp 96.8 F 08/07/20 15:29 Pulse 79 08/07/20 15:29 Resp 18 08/07/20 15:29 BP 120/84 08/07/20 15:29 Pulse Ox 100 08/07/20 15:29 Body Mass Index 19.8 Constitutional Awake and Alert, No apparent distress poor dention Neck Supple, No lymphadenopathy Cardiovascular RRR, No M/R/G, S1 S2, No S3 S4, No pedal edema Respiratory Lungs clear, No respiratory distress Gastrointestinal Non tender, Non-distended Skin No rash Neurological Alert & oriented x3 Psychological Appropriate affect DS: Data Data Completed and Pending Labs on day of discharge: Laboratory Results - last 24 hr 08/06/20 08/06/20 08/06/20 19:03 19:57 21:22 WBC RBC Hgb Hct MCV MCH MCHC RDW Plt Count MPV Immature Gran % (Auto) Neut % (Auto) Lymph % (Auto) [place] % (Auto) Eos % (Auto) Baso % (Auto) Lymph # (Auto) [place] # (Auto) Eos # (Auto) Baso # (Auto) Abs Immat Gran (auto) Absolute Neuts (auto) Absolute Nucleated RBC Nucleated RBC % (auto) Sodium Potassium Chloride Carbon Dioxide Anion Gap BUN Creatinine Estim Creat Clear Calc Estimated GFR POC Glucose 165 H 153 H 94 Random Glucose Calcium Phosphorus Magnesium Albumin 08/06/20 08/06/20 08/06/20 22:09 22:41 22:43 WBC RBC Hgb Hct MCV MCH MCHC RDW Plt Count MPV Immature Gran % (Auto) Neut % (Auto) Lymph % (Auto) [place] % (Auto) Eos % (Auto) Baso % (Auto) Lymph # (Auto) [place] # (Auto) Eos # (Auto) Baso # (Auto) Abs Immat Gran (auto) Absolute Neuts (auto) Absolute Nucleated RBC Nucleated RBC % (auto) Sodium 143 Potassium 3.1 L Chloride 109 H Carbon Dioxide 25 Anion Gap 12 BUN 15 Creatinine 0.72 Estim Creat Clear Calc 92.8 Estimated GFR > 60 POC Glucose 56 L* 55 L* Random Glucose 67 D Calcium 8.3 L Phosphorus Magnesium Albumin 08/06/20 08/07/20 08/07/20 23:14 00:27 01:42 WBC RBC Hgb Hct MCV MCH MCHC RDW Plt Count MPV Immature Gran % (Auto) Neut % (Auto) Lymph % (Auto) [place] % (Auto) Eos % (Auto) Baso % (Auto) Lymph # (Auto) [place] # (Auto) Eos # (Auto) Baso # (Auto) Abs Immat Gran (auto) Absolute Neuts (auto) Absolute Nucleated RBC Nucleated RBC % (auto) Sodium Potassium Chloride Carbon Dioxide Anion Gap BUN Creatinine Estim Creat Clear Calc Estimated GFR POC Glucose 175 H 156 H 127 H Random Glucose Calcium Phosphorus Magnesium Albumin 08/07/20 08/07/20 08/07/20 02:45 03:36 04:39 WBC RBC Hgb Hct MCV MCH MCHC RDW Plt Count MPV Immature Gran % (Auto) Neut % (Auto) Lymph % (Auto) [place] % (Auto) Eos % (Auto) Baso % (Auto) Lymph # (Auto) [place] # (Auto) Eos # (Auto) Baso # (Auto) Abs Immat Gran (auto) Absolute Neuts (auto) Absolute Nucleated RBC Nucleated RBC % (auto) Sodium Potassium Chloride Carbon Dioxide Anion Gap BUN Creatinine Estim Creat Clear Calc Estimated GFR POC Glucose 121 H 150 H 124 H Random Glucose Calcium Phosphorus Magnesium Albumin 08/07/20 08/07/20 08/07/20 05:15 05:15 06:05 WBC 14.1 H RBC 3.54 L D Hgb 10.1 L D Hct 30.9 L D MCV 87.3 MCH 28.5 MCHC 32.7 RDW 14.5 Plt Count 275 D MPV 9.7 Immature Gran % (Auto) 0.4 Neut % (Auto) 69.8 Lymph % (Auto) 24.3 [place] % (Auto) 5.2 Eos % (Auto) 0.2 Baso % (Auto) 0.1 Lymph # (Auto) 3.4 [place] # (Auto) 0.7 Eos # (Auto) 0.0 Baso # (Auto) 0.0 Abs Immat Gran (auto) 0.06 H Absolute Neuts (auto) 9.9 H Absolute Nucleated RBC 0.000 Nucleated RBC % (auto) 0.0 Sodium 143 Potassium 3.8 D Chloride 110 H Carbon Dioxide 26 Anion Gap 11 L BUN 13 Creatinine 0.66 Estim Creat Clear Calc 101.2 Estimated GFR > 60 POC Glucose 143 H Random Glucose 130 H D Calcium 8.1 L Phosphorus 1.9 L Magnesium 1.7 Albumin 2.7 L 08/07/20 08/07/20 08/07/20 06:52 08:05 11:59 WBC RBC Hgb Hct MCV MCH MCHC RDW Plt Count MPV Immature Gran % (Auto) Neut % (Auto) Lymph % (Auto) [place] % (Auto) Eos % (Auto) Baso % (Auto) Lymph # (Auto) [place] # (Auto) Eos # (Auto) Baso # (Auto) Abs Immat Gran (auto) Absolute Neuts (auto) Absolute Nucleated RBC Nucleated RBC % (auto) Sodium Potassium Chloride Carbon Dioxide Anion Gap BUN Creatinine Estim Creat Clear Calc Estimated GFR POC Glucose 131 H 124 H 126 H Random Glucose Calcium Phosphorus Magnesium Albumin 08/07/20 16:05 WBC RBC Hgb Hct MCV MCH MCHC RDW Plt Count MPV Immature Gran % (Auto) Neut % (Auto) Lymph % (Auto) [place] % (Auto) Eos % (Auto) Baso % (Auto) Lymph # (Auto) [place] # (Auto) Eos # (Auto) Baso # (Auto) Abs Immat Gran (auto) Absolute Neuts (auto) Absolute Nucleated RBC Nucleated RBC % (auto) Sodium Potassium Chloride Carbon Dioxide Anion Gap BUN Creatinine Estim Creat Clear Calc Estimated GFR POC Glucose 115 Random Glucose Calcium Phosphorus Magnesium Albumin Preliminary micro results at discharge 08/06/20 11:58 Blood Culture - Preliminary Blood - Venous No growth after 24 hours. 08/05/20 10:14 Blood Culture - Preliminary Blood - Venous No growth after 48 hours. Discharge Plan Discharge Anticipated Discharge Date/Time: 08/07/20 18:48 Patient Disposition: Left Against Medical Advice Discharge Diagnosis: DKA, substance abuse Referrals: Alix Padilla MD [Primary Care Provider] - 1 Week (Please call and schedule a follow up appointment) Discharge Medications: No Action Novolin R Regular U-100 Insuln 100 unit/mL Solution 1 sliding scale dose SUBCUT USEASDIRECTD RF: 0 Discharge Orders: Discharge Order (Routine); Ordered 08/07/20 Ordered By: Nguyễn Bojorquez Care Plan Goals: prevent rehospitalization Health Concerns: substance abuse Plan of Treatment: to continue insulin and avoid drug, given resources by social service including number to call for help Assessment: DKA that has resolved. Discharge Date/Time: 08/07/20 18:20
--- NOTE | 2020-08-07 19:12 | PC.NURSE ---
1529- Pt admitted from ICU with sitter. Pt threatening to pull out TLC and leave AMA. Dr. Bojorquez at bedside. Pt given morphine for 10/10 pain, with no improvement. Pt yelling out and wanting to leave. 1819- Pt yelling out, trying to pull at TLC, and pacing in room. Dr. Bojorquez at beside. Pt alert and oriented, verbalized understanding of risks of leaving AMA. Pt to going home with boyfriend. Pt states she has humalog and lantus in the refrigerator at home. Dr. Bojorquez removed TLC, no issues. Pt signed AMA form with two RN witness. Pt walked off unit with staff member.
== END 2020-08-07 18:20 | disposition left against medical advice (07) | DRG 420 ==
LOC: HO.ED 03:54 → HO.ICU 04:02 → HO.S3 08-07 14:11
PROVIDERS: Physician Assistant; Registered Nurse Community Health; Admitting Provider Internal Medicine Pulmonary Disease; Emergency Provider Emergency Medicine Emergency Medical Services; PCP Family Medicine; Visit Provider Internal Medicine
DX: E10.10 Type 1 diabetes mellitus with ketoacidosis without coma (principal); N17.9 Acute kidney failure, unspecified; F11.10 Opioid abuse, uncomplicated; F41.9 Anxiety disorder, unspecified; E86.0 Dehydration; Z91.14 Patient's other noncompliance with medication regimen; F19.10 Other psychoactive substance abuse, uncomplicated; R68.0 Hypothermia, not associated with low environmental temperature; F14.10 Cocaine abuse, uncomplicated; F17.210 Nicotine dependence, cigarettes, uncomplicated; Z71.6 Tobacco abuse counseling; Z20.822 Contact with and (suspected) exposure to COVID-19
CPT/HCPCS: 0241U; 36415; 71045; 80048; 80053; 82040; 82947; 83605; 83690; 83735; 84100; 85025; 87040; 96374; 96375; 99285; C1758; J1200; J2060; J2270; J2405; J2765

== ENCOUNTER 2020-08-16 18:23 | Emergency (ER) | payer MEDICAID, SELFPAY ==
[2020-08-16 18:28] VITALS: BP 168/78; PULSE 116; RESP 18; TEMP 36.7; O2SAT 100; BMI 17.7
--- NOTE | 2020-08-16 18:39 | ED.OVERDOSE ---
HPI - Overdose General Chief Complaint: Overdose Stated Complaint: overdose Time Seen by Provider: 08/16/20 18:39 Source: patient and EMS Mode of arrival: EMS Limitations: other (agitated uncooperative) History of Present Illness HPI Narrative: 24 yo female no SI used 4 bags of heroin - had to be bagged by EMS given 3mg Narcan SPANISH INTERPRETER/TRANSLATOR now awake and alert, asking to leave MD complaint: accidental overdose Onset (ago): minute(s) Timing confirmed by: other Context: Accidental Overdose: wanted to get high Treatments Prior to Arrival: narcan Related Data Home Medications Medication Instructions Recorded Confirmed insulin regular human [Novolin R 1 sliding scale dose SUBCUT 08/05/20 08/05/20 Regular U-100 Insuln] USEASDIRECTD Allergies Allergy/AdvReac Type Severity Reaction Status Date / Time No Known Allergies Allergy Verified 07/22/20 16:27 Review of Systems Review of Systems: Constitutional : No Fever, No Chills, Cardiovascular : No Chest Pain, No SOB Respiratory : No Dyspnea Gastrointestinal : No abdominal pain Musculoskeletal : No Joint Swelling Skin : No rash, no skin laceration Neuro : No Weakness, No Numbness Psych : No SI/HI PMFSH Past Medical History Medical History Anxiety Cocaine abuse Heroin abuse Social History Social History Household Members: None Housing: Homeless Smoking Status: Current some day smoker Tobacco Type: Cigarette Use of substances other than those prescribed or required for medical reasons: Yes Substance Use Type: Heroin Advance Directives: No Advance Directives Information Provided: Yes Physical Exam Vital Signs: Vital Signs: Last Vital Signs Temp 98.0 F 08/16/20 18:28 Pulse 116 H 08/16/20 18:46 Resp 16 08/16/20 18:46 BP 168/78 H 08/16/20 18:46 Pulse Ox 100 08/16/20 18:46 Body Mass Index 17.7 Appearance: Alert. Oriented X3. No acute distress. I want to get out of here. Eyes: Pupils equal, round and reactive to light. ENT: Pharynx normal. Neck: Normal inspection. Neck supple. CVS: Pulses normal. Respiratory: No respiratory distress. Abdomen: no trauma Skin: Skin warm and dry. Normal skin color. Normal skin turgor. Extremities: no trauma Neuro: Oriented X 3. No motor deficit. No sensory deficit. MDM - Overdose MDM Narrative Medical decision making narrative: 24 yo female with opiate use disorder accidental overdose - at this time she agrees to stay for 1 hour to watch for re-overdose, she declines recovery team, refuses to take narcan with her Discharge Plan Discharge Clinical Impression: Opiate overdose Qualifiers: Encounter type: initial encounter Injury intent: accidental or unintentional Qualified Code(s): T40.601A - Poisoning by unspecified narcotics, accidental (unintentional), initial encounter Patient Disposition: Home, Self-Care Instructions: Opioid Use Disorder (ED) Additional Instructions: return to ED for any worsening symptoms or concerns Prescriptions: No Action Novolin R Regular U-100 Insuln 100 unit/mL Solution 1 sliding scale dose SUBCUT USEASDIRECTD RF: 0
[2020-08-16 18:46] VITALS: BP 168/78; PULSE 116; RESP 16; O2SAT 100
== END 2020-08-16 19:25 | disposition home or self-care (01) ==
LOC: HO.ED 18:44
PROVIDERS: Emergency Provider Emergency Medicine
DX: T40.1X1A Poisoning by heroin, accidental (unintentional), initial encounter (principal); F11.10 Opioid abuse, uncomplicated; Y92.9 Unspecified place or not applicable; Z79.4 Long term (current) use of insulin; Z79.899 Other long term (current) drug therapy; F17.210 Nicotine dependence, cigarettes, uncomplicated; Z71.6 Tobacco abuse counseling
CPT/HCPCS: 99285

== ENCOUNTER 2020-08-17 08:12 | Inpatient (IN) | payer MEDICAID, SELFPAY ==
[2020-08-17] VITALS (18 sets, daily range): BP systolic 88–130; BP diastolic 44–78; PULSE 81–130; RESP 15–19; TEMP 35.4–36.4; O2SAT 93–100; BMI 23.3
--- NOTE | ~2020-08-17 | CT_ITS ---
EXAMINATION: CT HEAD WITHOUT CONTRAST CLINICAL INFORMATION: Change in mental status COMPARISON: None TECHNIQUE: Contiguous axial imaging was performed from the skull base to vertex without intravenous administration of contrast. This CT examination was performed using dose optimization techniques as appropriate, variously including the following: *Automated exposure control *Adjustment of mA and/or kV according to patient size (this includes techniques or standardized protocols for targeted exams where dose is matched to indication/reason for exam; i.e. extremities or head) *Use of iterative reconstruction technique DLP: 682 mGy-cm FINDINGS: There is no evidence of acute intracranial hemorrhage or territorial infarction. No abnormal mass effect or midline shift is seen. Underwood to white matter differentiation is well preserved. No extra-axial fluid collections are identified. The ventricles are normal in size. There is no abnormal attenuation within the brain parenchyma. The osseous structures and soft tissues are normal. The mastoid air cells and visualized portions of the paranasal sinuses are well aerated. CT/CT head/brain wo con IMPRESSION: No acute intracranial pathology.
--- NOTE | ~2020-08-17 | XR_ITS ---
EXAMINATION: XR CHEST CLINICAL INFORMATION: Fever and delirium COMPARISON: Previous chest x-ray was recent 08/06/2020 TECHNIQUE: Frontal view of the chest was obtained. FINDINGS: No significant abnormality is noted involving the heart, lungs, mediastinum, bony thorax or soft tissues. XR/XR chest 1V IMPRESSION: Unremarkable examination.
[2020-08-17 08:37] LABS: Glucose, Whole Blood > 600 mg/dL (60-115)
[2020-08-17 08:37] LABS: Glucose, Whole Blood > 600 mg/dL (60-115)
[2020-08-17 09:17] LABS: MANUAL DIFF FLAG NO
[2020-08-17 09:18] LABS: Basophils Percent Auto 0.1 % (0-2); Hematocrit 40.1 % (37-47); Hemoglobin 11.7 g/dl (12.0-16.0); Imm Gran Abs Auto 0.08 X10*3/uL (0.00-0.03); Imm Gran Pct Auto 0.6 % (0.0-0.4); Lymphocytes Absolute Auto 0.8 X10*3/uL (1.2-4.9); Lymphocytes Percent Auto 6.2 % (20-40); Mean Corpuscular HGB Conc 29.2 g/dl (31.0-35.0); Mean Corpuscular Hemoglobin 28.5 pg (27.0-33.0); Mean Corpuscular Volume 97.8 fL (80-98); Mean Platelet Volume 10.7 fL (9.4-12.3); Monocytes Absolute Auto 0.6 X10*3/uL (0.1-1.2); Monocytes Percent Auto 4.7 % (2-11); Neutrophils Absolute Auto 11.5 X10*3/uL (2.0-8.3); Neutrophils Percent Auto 88.4 % (45-73); Platelet Count 439 X10*3/uL (160-400); Red Cell Distribution Width 15.2 % (11.0-16.0)
[2020-08-17 09:30] LABS: Acetone, serum QL Moderate (Negative)
[2020-08-17 09:43] LABS: Alanine Aminotransferase 33 U/L (0-31); Alkaline Phosphatase 185 U/L (39-117); Aspartate Amino Transferase 21 U/L (5-31); Bilirubin Direct 0.2 mg/dL (0.0-0.5); Bilirubin Total 0.3 mg/dL (0.0-1.0); Blood Urea Nitrogen 28 mg/dL (9-16); Calcium 9.9 mg/dL (8.4-10.2); Creatinine Clr Calc Pharmacy 33.5; Estimated Glomerular Filt Rate 30; Total Protein 7.4 g/dL (6.5-8.0)
[2020-08-17 09:47] LABS: HCG Quantitative < 2 mIU/mL
[2020-08-17 10:00] LABS: Anion Gap 42 (12-20); Carbon Dioxide 11 mmol/L (22-29); Chloride 95 mmol/L (96-108); Glucose Random 1467 mg/dL (60-115); Magnesium 3.8 mg/dL (1.6-2.6); Potassium 6.4 mmol/L (3.3-5.1); Sodium 142 mmol/L (135-145)
[2020-08-17] MEDS: 0.9 % Sodium Chloride 1,000 ML 999 ML IVCONT ×2 (10:03→10:53)
--- NOTE | 2020-08-17 10:15 | PC.NURSE ---
pt is alert and has refused to be disrobed and placed into hosp garment. pt is dishevel and has an odor of lack of self/personal care, pt was removed into room 21. pt has numerous /multi scratching to marietta arms which appears non-infected, pt at times is curled up into a ball.
[2020-08-17] MEDS: Insulin Regular, Human 100 UNIT/ML 3 ML VIAL 10 UNIT IVPUSH (10:50)
--- NOTE | 2020-08-17 10:59 | ECG_ITS ---
Test Reason : OVERDOSE Blood Pressure : / mmHG Vent. Rate : 121 BPM Atrial Rate : 121 BPM P-R Int : 130 ms QRS Dur : 074 ms QT Int : 334 ms P-R-T Axes : 083 084 042 degrees QTc Int : 474 ms Sinus tachycardia Possible Left atrial enlargement Borderline ECG When compared with ECG of 05-AUG-2020 11:18, T wave amplitude has decreased in Anterior leads Referred By: Emma Young Electronically Signed By:NEO TORRES
--- NOTE | 2020-08-17 11:25 | ED.GENADULT ---
HPI - General Adult General Chief complaint: General Medical Stated complaint: found in alley [address] pt stating ouch my nose Time Seen by Provider: 08/17/20 08:29 Source: EMS Mode of arrival: EMS Limitations: other (Agitated uncooperative) History of Present Illness HPI narrative: 24-year-old female with a past medical history of diabetes, anxiety and IV drug use presenting via EMS after she was found in the alleyway sleeping on the grass when EMS checked her POC it read high therefore she was brought here for further evaluation and treatment. It appears that the patient was here yesterday for an overdose as well and she left against medical advice. At this time she is moaning and groaning screaming to leave her alone and not to touch her therefore is refusing vitals. She is not answering any questions. Has multiple track castelan all over her body. Related Data Home Medications Medication Instructions Recorded Confirmed insulin regular human [Novolin R 1 sliding scale dose SUBCUT 08/05/20 08/05/20 Regular U-100 Insuln] USEASDIRECTD Allergies Allergy/AdvReac Type Severity Reaction Status Date / Time No Known Allergies Allergy Verified 07/22/20 16:27 Review of Systems Review of Systems: Yes Unobtainable due to mental condition PMFSH Past Medical History Source: old records reviewed Medical History Anxiety Cocaine abuse Heroin abuse Social History Social History Household Members: None Housing: Homeless Smoking Status: Current some day smoker Tobacco Type: Cigarette Substance Use Type: Heroin Advance Directives: No Advance Directives Information Provided: No Physical Exam Vital Signs: Vital Signs: Last Vital Signs Pulse 125 H 08/17/20 12:00 Resp 18 08/17/20 12:00 BP 130/61 08/17/20 12:00 Pulse Ox 97 08/17/20 12:00 Body Mass Index 23.3 Vital signs have been reviewed as normal and appeared to be correct. Blood pressure normal. Heart rate tachycardic at 121. Respiration rate normal. Temperature normal. Oxygen saturation normal. Appearance: Somnolent although response to verbal stimuli and keeps yelling leave me alone do not touch me I want to get out here. Head: Normal external exam. Normocephalic. Atraumatic. Able to rotate head bilaterally. Eyes: PERRLA. EOMI. Conjunctiva and sclera normal. Eyelids normal. Corneal reflex normal. ENT: Hearing normal. Pharynx normal. Uvula midline. tongue midline. Multiple missing teeth and dental caries with dry mucous membranes throughout. No trismus noted. No drooling noted. No muffled voice noted. Neck: Normal inspection. Neck supple. FROM. No adenopathy. Thyroid Normal. No meningeal signs. No neck mass noted. CVS: Tachycardic otherwise normal rhythm. Heart sound normal. No murmurs noted. Pulses normal throughout. Respiratory: No respiratory distress. Painless inspiration. Breath sounds normal. No wheezes/rales/rhonchi noted. Chest nontender. No accessory muscle usage noted or decreased air movement noted. Back: Full range of motion noted. No signs of infection noted or trauma. Skin: Skin warm and dry. Normal skin color. Normal skin turgor. Patient has multiple track castelan all over her body including her forehead/neck/bilateral arms although no signs of infection or abscesses or streaking or foreign bodies. No rashes/lacerations noted. Extremities: Extremities exhibit normal range of motion. Extremities nontender. Neuro: Oriented. No motor deficit. No sensory deficit. Reflexes normal. Moving all extremities. No focal motor deficits. Course Course Course Narrative: 10am - labs reviewed and patient has white blood cell count at 13,000. Mild baseline anemia. Potassium 6.4. Bicarb 11. And at 42. BUN/creatinine 28/2.08. POC is 1467. Magnesium is 3.8. ALT is 333. Alkaline phosphate 185. Otherwise all other labs are within normal limits. Serum quant negative for . UA revealed 500 glucose otherwise no evidence of UTI. Patient acetone level is moderately high. - EKG is sinus tachycardia no acute ischemic changes are noted. - therefore at this time patient will be given another L of IV fluids for a total of 2 L of IV fluids along with 10 units of IV insulin and patient will be started on an insulin drip at 15 units per hour. I spoke to Dr. mock the squeezer operator and he recommended no additional labs and no needle sticks only p.o. sees every hour. He reports that the next blood draw will be at 01:00 o'clock. He reports that after the 2 L of IV fluids patient will Ringer's lactate at 300 cc/hour. Patient will be admitted to the ICU. Medical Decision Making MDM Narrative Medical decision making narrative: 8:45am 24-year-old female with opioid use disorder presenting to the ED via EMS after being found in the alley way and her POC read high. Therefore on arrival here patient is very agitated although POC read high no signs of trauma therefore at this time will attempt to place a line obtain labs, EKG, start the patient on fluids then re-evaluate. Medical Records Medical records reviewed: Yes I reviewed the patient's medical records. Lab Data Result diagrams: 08/17/20 09:13 08/17/20 09:13 Labs: Lab Results 08/17/20 08/17/20 08/17/20 Range/Units 08:29 08:31 09:13 WBC 13.0 H (4.8-10.8) X10*3/uL RBC 4.10 L (4.20-5.50) X10*6/uL Hgb 11.7 L (12.0-16.0) g/dl Hct 40.1 D (37-47) % MCV 97.8 (80-98) fL MCH 28.5 (27.0-33.0) pg MCHC 29.2 L (31.0-35.0) g/dl RDW 15.2 (11.0-16.0) % Plt Count 439 H D (160-400) X10*3/uL MPV 10.7 (9.4-12.3) fL Immature Gran % (Auto) 0.6 H (0.0-0.4) % Neut % (Auto) 88.4 H (45-73) % Lymph % (Auto) 6.2 L (20-40) % [place] % (Auto) 4.7 (2-11) % Eos % (Auto) 0.0 (0-4) % Baso % (Auto) 0.1 (0-2) % Lymph # (Auto) 0.8 L (1.2-4.9) X10*3/uL [place] # (Auto) 0.6 (0.1-1.2) X10*3/uL Eos # (Auto) 0.0 (0.0-0.4) X10*3/uL Baso # (Auto) 0.0 (0.0-0.2) X10*3/uL Abs Immat Gran (auto) 0.08 H (0.00-0.03) X10*3/uL Absolute Neuts (auto) 11.5 H (2.0-8.3) X10*3/uL Absolute Nucleated RBC 0.000 (0.0-0.012) X10*3/uL Nucleated RBC % (auto) 0.0 (0.0-0.2) /100WBC Sodium (135-145) mmol/L Potassium (3.3-5.1) mmol/L Chloride (96-108) mmol/L Carbon Dioxide (22-29) mmol/L Anion Gap (12-20) BUN (9-16) mg/dL Creatinine (0.5-1.4) mg/dL Estim Creat Clear Calc Estimated GFR POC Glucose > 600 H* > 600 H* (60-115) mg/dL Random Glucose (60-115) mg/dL Calcium (8.4-10.2) mg/dL Magnesium (1.6-2.6) mg/dL Total Bilirubin (0.0-1.0) mg/dL Direct Bilirubin (0.0-0.5) mg/dL AST (5-31) U/L ALT (0-31) U/L Alkaline Phosphatase (39-117) U/L Total Protein (6.5-8.0) g/dL Albumin (3.5-5.0) g/dL Beta HCG, Quant mIU/mL Acetone, Qual (Negative) 08/17/20 08/17/20 08/17/20 Range/Units 09:13 11:26 11:29 WBC (4.8-10.8) X10*3/uL RBC (4.20-5.50) X10*6/uL Hgb (12.0-16.0) g/dl Hct (37-47) % MCV (80-98) fL MCH (27.0-33.0) pg MCHC (31.0-35.0) g/dl RDW (11.0-16.0) % Plt Count (160-400) X10*3/uL MPV (9.4-12.3) fL Immature Gran % (Auto) (0.0-0.4) % Neut % (Auto) (45-73) % Lymph % (Auto) (20-40) % [place] % (Auto) (2-11) % Eos % (Auto) (0-4) % Baso % (Auto) (0-2) % Lymph # (Auto) (1.2-4.9) X10*3/uL [place] # (Auto) (0.1-1.2) X10*3/uL Eos # (Auto) (0.0-0.4) X10*3/uL Baso # (Auto) (0.0-0.2) X10*3/uL Abs Immat Gran (auto) (0.00-0.03) X10*3/uL Absolute Neuts (auto) (2.0-8.3) X10*3/uL Absolute Nucleated RBC (0.0-0.012) X10*3/uL Nucleated RBC % (auto) (0.0-0.2) /100WBC Sodium 142 (135-145) mmol/L Potassium 6.4 H* D (3.3-5.1) mmol/L Chloride 95 L (96-108) mmol/L Carbon Dioxide 11 L (22-29) mmol/L Anion Gap 42 H (12-20) BUN 28 H D (9-16) mg/dL Creatinine 2.08 H (0.5-1.4) mg/dL Estim Creat Clear Calc 33.5 Estimated GFR 30 POC Glucose > 600 H* > 600 H* (60-115) mg/dL Random Glucose 1467 H* (60-115) mg/dL Calcium 9.9 D (8.4-10.2) mg/dL Magnesium 3.8 H* (1.6-2.6) mg/dL Total Bilirubin 0.3 (0.0-1.0) mg/dL Direct Bilirubin 0.2 (0.0-0.5) mg/dL AST 21 (5-31) U/L ALT 33 H (0-31) U/L Alkaline Phosphatase 185 H D (39-117) U/L Total Protein 7.4 (6.5-8.0) g/dL Albumin 4.0 D (3.5-5.0) g/dL Beta HCG, Quant < 2 mIU/mL Acetone, Qual Moderate H (Negative) ECG Data Attestation: I personally reviewed and interpreted this ECG as follows: Interpretation: Sinus tachycardia with ventricular rate of 121 with possible left atrial enlargement is normal QRS duration normal QT/QTC interval. No acute ischemic changes are noted. Similar when Compared to prior EKG on 08/05/2020. Critical Care Time Critical Care Time Critical Care Time: Yes Total Critical Care Time: 60 Attestation: I personally attest to this time spent taking care of the patient Discharge Plan Discharge Clinical Impression: Diabetic ketoacidosis Patient Disposition: Admitted As Inpatient
[2020-08-17 11:38] LABS: Glucose, Whole Blood > 600 mg/dL (60-115)
[2020-08-17 11:38] LABS: Glucose, Whole Blood > 600 mg/dL (60-115)
[2020-08-17] MEDS: Insulin Regular/NS 100 UNIT/100 ML PLAST..BAG 15 UNIT IVCONT ×2 (11:38→13:44)
--- NOTE | 2020-08-17 11:39 | PC.NURSE ---
V/O MIRANDA FIELDS START INSULIN INFUSION AT 15/U/HR
[2020-08-17 11:55] LABS: Glucose Urine UA 500 MG/DL (NEG); Leukocyte Esterase Urine NEG (NEG); Nitrite Urine NEG (NEG); Urine Blood NEG (NEG); Urine Ketones >=80 MG/DL (NEG); Urine Protein NEG (NEG-TRACE)
[2020-08-17 11:57] LABS: Appearance Urine CLEAR; Color Urine STRAW
[2020-08-17] MEDS: Lactated Ringers 1,000 ML 300 ML IV (12:06)
[2020-08-17 12:32] LABS: Amphetamine Screen Urine Not Detected (Not Detect); Barbiturates, Urine Not Detected (Not Detect); Benzodiazepines Screen Urine Not Detected (Not Detect); Cannabinoid Screen Urine Not Detected (Not Detect); Cocaine Screen Urine POSITIVE (Not Detect); Opiate Screen Urine Not Detected (Not Detect); Phencyclidine Screen Urine Not Detected (Not Detect)
[2020-08-17 13:03] LABS: Glucose, Whole Blood > 600 mg/dL (60-115)
[2020-08-17 13:03] LABS: Glucose, Whole Blood > 600 mg/dL (60-115)
--- NOTE | 2020-08-17 13:40 | PC.NURSE ---
nurse to nurse given to arvind (rn) by randolph (rn). pt aware of plan of care for admission to hosp.
[2020-08-17 14:22] LABS: Glucose, Whole Blood 526 mg/dL (60-115)
[2020-08-17] MEDS: propofoL 200 MG/20 ML VIAL 40 MG IVPUSH (14:51)
[2020-08-17] MEDS: dexmedeTOMIDidine HCL/NS 400 MCG/100 ML INFUS..BTL 14.52 MCG IVCONT ×2 (14:55→21:57)
[2020-08-17 14:58] LABS: Glucose, Whole Blood 462 mg/dL (60-115)
[2020-08-17 15:13] LABS: Albumin Level 3.8 g/dL (3.5-5.0); Anion Gap 26 (12-20); Blood Urea Nitrogen 24 mg/dL (9-16); Calcium 9.9 mg/dL (8.4-10.2); Carbon Dioxide 19 mmol/L (22-29); Chloride 118 mmol/L (96-108); Estimated Glomerular Filt Rate 42; Glucose Random 670 mg/dL (60-115); Magnesium 3.1 mg/dL (1.6-2.6); Phosphorus 1.9 mg/dL (2.7-4.5); Sodium 160 mmol/L (135-145)
[2020-08-17 15:41] LABS: Influenza A PCR NEGATIVE (Negative); Influenza B PCR NEGATIVE (Negative); Resp Syncy Virus RNA Qual PCR NEGATIVE (Negative); SARS COV2 PCR INHOUSE NEGATIVE (Negative)
--- NOTE | 2020-08-17 16:34 | PC.NURSE ---
Pt brought to ICU 1400 with insulin running at 15u/hr with LR running at 300ml/hr (switched to 200ml/hr 1600), POC 526 on arrival, 1500 POC glucose 462 drip titrated down to 10u/hr per KYLIE REYES. Pt swinging at staff, attempting to bite, headbutt, kicking staff, pt was not able to be verbally consoled. Behavioral restraints applied per MD KYLIE at 1415. Pt was given 40mg IVP propofol by MD kylie at 1421 and lidocaine 2% 1421. Vitals q15 WNL, pt is calm now resting. Unable to answer admission questions at this time.
[2020-08-17 16:37] LABS: Anion Gap 19 (12-20); Blood Urea Nitrogen 21 mg/dL (9-16); Calcium 9.5 mg/dL (8.4-10.2); Carbon Dioxide 25 mmol/L (22-29); Chloride 122 mmol/L (96-108); Creatinine Clr Calc Pharmacy 60.6; Estimated Glomerular Filt Rate 59; Glucose Random 384 mg/dL (60-115); Sodium 163 mmol/L (135-145)
[2020-08-17 16:59] LABS: Glucose, Whole Blood 242 mg/dL (60-115)
[2020-08-17] MEDS: Dextrose 5 % 1,000 ML 200 ML IVCONT ×2 (17:27→23:28)
[2020-08-17] MEDS: Insulin Regular/NS 100 UNIT/100 ML PLAST..BAG 10 UNIT IVCONT (18:42)
[2020-08-17 19:18] LABS: Glucose, Whole Blood 197 mg/dL (60-115)
[2020-08-17] MEDS: Insulin Regular/NS 100 UNIT/100 ML PLAST..BAG 6 UNIT IVCONT (19:41)
--- NOTE | 2020-08-17 19:52 | PM.CCHP ---
History of Present Illness Date of Service: 08/17/20 Ms. Morgan was admitted to ICU this afternoon with DKA. The patient is a 24-year-old female with a past medical history of diabetes, anxiety and IV drug use. BIBA this morning after she was found in the alleyway sleeping on the grass. When EMS checked her POC, it read high, therefore she was brought to the ED for further evaluation. The [facility] records indicate that the patient was in the ED here yesterday for an overdose and she left against medical advice, before any evaluation. In the ED this morning, she was moaning and groaning screaming to leave her alone and not to touch her therefore is refusing vitals. She had multiple track castelan and lesions all over her body. Vital signs from the ED indicate a heart rate of 121, blood pressure 122/61, respiratory rate 18, and sat of 100% on room air. Physical exam was other a month otherwise remarkable mainly for terrible teeth. Labs in the ED were notable for a white count of 13.0, hemoglobin 11, normal coags, sodium 142, potassium 6.4, bicarb 11, BUN/creatinine 28/2.0 (baseline about 0.7), glucose 1467, magnesium 3.8, normal LFTs, alk-phos 185, serum albumin 4.0. She was given 2L NS and started on an insulin drip, then transferred to ICU. In the ICU, she was agitated and combative. The patient is very slight, almost cachectic. Temp 98.2, HR 120, BP 98/51, RR 19, Sat 100% on room air. We sedated her w Precedex. Multiple missing and carious teeth. No JVD at 30?, but she has a marble sized raised, fluctulent lesion over the area of her mid-external JV in her right neck, that is probably an abscess. Chest is CTA, heart rate and rhythm are regular and tachy, normal-sounding S1 and S2, with no murmur or gallops. The abdomen is flat and benign. She has no peripheral edema. Shows multiple scars and scabs all over her body, especially all 4 extremities. LABORATORY DATA: As outlined above, and below. IMPRESSION: 1. IV drug abuse. 2. Protein calorie malnutrition. 3. Terrible dentition. 4. DKA. 5. Severe hypovolemia. 6. Acute kidney injury. 7. Hypernatremia. We?ll have to continue vol resusc with D5W. Continue insulin infusion. Discussed with Dr. Nicolas. F/u chemistries as usual. Needs US of right neck lesion and drainage if it?s an abscess. Also needs a COVID swab. F/u social service and dental management, if possible. Critical care Time (including blood draws via femoral stick): 80+ min [facility] Past Medical History Medical History Anxiety Cocaine abuse Heroin abuse Social History Social History Household Members: None Housing: Homeless Unable to assess alcohol history related to: Unknown Smoking Status: Unknown if ever smoked Tobacco Type: Cigarette Substance Use Type: Crack/Cocaine and Heroin Currently Displaying Signs/Symptoms of Drug Intoxication Withdrawal: No Advance Directives: No Advance Directives Information Provided: No Do you have thoughts of harming others: None Do you have a plan to hurt others: No Plan Meds Allergies Allergy/AdvReac Type Severity Reaction Status Date / Time No Known Allergies Allergy Verified 07/22/20 16:27 Active Medications: Current Medications Generic Name Dose Route Start Last Admin Trade Name Freq PRN Reason Stop Dose Admin Insulin Human Regular 100 unit in 100 mls @ 15 mls/hr 08/17/20 11:45 08/17/20 19:21 Myxredlin IVCONT 6 unit/hr .Q6H40M MIKKI 6 mls/hr Titration Protocol 15 UNIT/HR Dexmedetomidine HCl 400 mcg in 100 mls @ 8.709 mls/hr 08/17/20 14:45 08/17/20 18:41 Precedex IVCONT 0.4 mcg/kg/hr .A22H98M MIKKI 5.81 mls/hr Titration Protocol 0.6 MCG/KG/HR Dextrose 1,000 mls @ 200 mls/hr 08/17/20 17:30 08/17/20 18:29 D5w IVCONT 116 mls/hr .Q5H [facility] Infusion Pharmacy Consult 1 each 08/17/20 10:01 Consult Rx Perform Med Rec MISCELLANE ONCE PRN Consult order Home Medications Medication Instructions Recorded Confirmed Last Taken Type insulin regular human [Novolin R 1 sliding scale dose SUBCUT 08/05/20 08/17/20 Unknown History Regular U-100 Insuln] USEASDIRECTD Physical Exam Vital Signs: Vital Signs: Last Vital Signs Temp 96.3 F L 08/17/20 17:51 Pulse 88 08/17/20 17:51 Resp 18 08/17/20 17:51 BP 88/47 L 08/17/20 17:51 Pulse Ox 98 08/17/20 17:51 Body Mass Index 23.3 Results Labs CBC and Chem 7: 08/17/20 09:13 08/17/20 15:57 Labs: Laboratory Results - last 24 hr 08/17/20 08/17/20 08/17/20 08:29 08:31 09:13 MCV 97.8 MCH 28.5 MCHC 29.2 L RDW 15.2 Plt Count 439 H D MPV 10.7 Immature Gran % (Auto) 0.6 H Neut % (Auto) 88.4 H Lymph % (Auto) 6.2 L [place] % (Auto) 4.7 Eos % (Auto) 0.0 Baso % (Auto) 0.1 Lymph # (Auto) 0.8 L [place] # (Auto) 0.6 Eos # (Auto) 0.0 Baso # (Auto) 0.0 Abs Immat Gran (auto) 0.08 H Absolute Neuts (auto) 11.5 H Absolute Nucleated RBC 0.000 Nucleated RBC % (auto) 0.0 Anion Gap Estim Creat Clear Calc Estimated GFR POC Glucose > 600 H* > 600 H* Random Glucose Calcium Phosphorus Magnesium Total Bilirubin Direct Bilirubin AST ALT Alkaline Phosphatase Total Protein Albumin Beta HCG, Quant Urine Color Urine Appearance Urine pH Ur Specific [place] Urine Protein Urine Glucose (UA) Urine Ketones Urine Blood Urine Nitrite Ur Leukocyte Esterase Urine Opiates Screen Ur Barbiturates Screen Ur Phencyclidine Scrn Ur Amphetamines Screen U Benzodiazepines Scrn Urine Cocaine Screen U Marijuana (THC) Screen Acetone, Qual Coronavirus (PCR) COVID-19 (BRENDA) COVID-19 Clin Com Influenza Type A (PCR) Influenza Type B (PCR) RSV RNA Qual (PCR) 08/17/20 08/17/20 08/17/20 09:13 11:26 11:29 MCV MCH MCHC RDW Plt Count MPV Immature Gran % (Auto) Neut % (Auto) Lymph % (Auto) [place] % (Auto) Eos % (Auto) Baso % (Auto) Lymph # (Auto) [place] # (Auto) Eos # (Auto) Baso # (Auto) Abs Immat Gran (auto) Absolute Neuts (auto) Absolute Nucleated RBC Nucleated RBC % (auto) Anion Gap 42 H Estim Creat Clear Calc 33.5 Estimated GFR 30 POC Glucose > 600 H* > 600 H* Random Glucose 1467 H* Calcium 9.9 D Phosphorus Magnesium 3.8 H* Total Bilirubin 0.3 Direct Bilirubin 0.2 AST 21 ALT 33 H Alkaline Phosphatase 185 H D Total Protein 7.4 Albumin 4.0 D Beta HCG, Quant < 2 Urine Color Urine Appearance Urine pH Ur Specific [place] Urine Protein Urine Glucose (UA) Urine Ketones Urine Blood Urine Nitrite Ur Leukocyte Esterase Urine Opiates Screen Ur Barbiturates Screen Ur Phencyclidine Scrn Ur Amphetamines Screen U Benzodiazepines Scrn Urine Cocaine Screen U Marijuana (THC) Screen Acetone, Qual Moderate H Coronavirus (PCR) COVID-19 (BRENDA) COVID-19 Clin Com Influenza Type A (PCR) Influenza Type B (PCR) RSV RNA Qual (PCR) 08/17/20 08/17/20 08/17/20 11:49 11:49 12:58 MCV MCH MCHC RDW Plt Count MPV Immature Gran % (Auto) Neut % (Auto) Lymph % (Auto) [place] % (Auto) Eos % (Auto) Baso % (Auto) Lymph # (Auto) [place] # (Auto) Eos # (Auto) Baso # (Auto) Abs Immat Gran (auto) Absolute Neuts (auto) Absolute Nucleated RBC Nucleated RBC % (auto) Anion Gap Estim Creat Clear Calc Estimated GFR POC Glucose > 600 H* Random Glucose Calcium Phosphorus Magnesium Total Bilirubin Direct Bilirubin AST ALT Alkaline Phosphatase Total Protein Albumin Beta HCG, Quant Urine Color STRAW Urine Appearance CLEAR Urine pH 5.0 Ur Specific [place] 1.010 Urine Protein NEG Urine Glucose (UA) 500 H Urine Ketones >=80 Urine Blood NEG Urine Nitrite NEG Ur Leukocyte Esterase NEG Urine Opiates Screen Not Detected Ur Barbiturates Screen Not Detected Ur Phencyclidine Scrn Not Detected Ur Amphetamines Screen Not Detected U Benzodiazepines Scrn Not Detected Urine Cocaine Screen POSITIVE H U Marijuana (THC) Screen Not Detected Acetone, Qual Coronavirus (PCR) COVID-19 (BRENDA) COVID-19 Clin Com Influenza Type A (PCR) Influenza Type B (PCR) RSV RNA Qual (PCR) 08/17/20 08/17/20 08/17/20 13:00 14:18 14:25 MCV MCH MCHC RDW Plt Count MPV Immature Gran % (Auto) Neut % (Auto) Lymph % (Auto) [place] % (Auto) Eos % (Auto) Baso % (Auto) Lymph # (Auto) [place] # (Auto) Eos # (Auto) Baso # (Auto) Abs Immat Gran (auto) Absolute Neuts (auto) Absolute Nucleated RBC Nucleated RBC % (auto) Anion Gap 26 H Estim Creat Clear Calc 45.0 Estimated GFR 42 POC Glucose > 600 H* 526 H* Random Glucose 670 H* Calcium 9.9 Phosphorus 1.9 L Magnesium 3.1 H Total Bilirubin Direct Bilirubin AST ALT Alkaline Phosphatase Total Protein Albumin 3.8 Beta HCG, Quant Urine Color Urine Appearance Urine pH Ur Specific [place] Urine Protein Urine Glucose (UA) Urine Ketones Urine Blood Urine Nitrite Ur Leukocyte Esterase Urine Opiates Screen Ur Barbiturates Screen Ur Phencyclidine Scrn Ur Amphetamines Screen U Benzodiazepines Scrn Urine Cocaine Screen U Marijuana (THC) Screen Acetone, Qual Coronavirus (PCR) COVID-19 (BRENDA) COVID-19 Clin Com Influenza Type A (PCR) Influenza Type B (PCR) RSV RNA Qual (PCR) 08/17/20 08/17/20 08/17/20 14:40 14:45 14:54 MCV MCH MCHC RDW Plt Count MPV Immature Gran % (Auto) Neut % (Auto) Lymph % (Auto) [place] % (Auto) Eos % (Auto) Baso % (Auto) Lymph # (Auto) [place] # (Auto) Eos # (Auto) Baso # (Auto) Abs Immat Gran (auto) Absolute Neuts (auto) Absolute Nucleated RBC Nucleated RBC % (auto) Anion Gap Estim Creat Clear Calc Estimated GFR POC Glucose 462 H* Random Glucose Calcium Phosphorus Magnesium Total Bilirubin Direct Bilirubin AST ALT Alkaline Phosphatase Total Protein Albumin Beta HCG, Quant Urine Color Urine Appearance Urine pH Ur Specific [place] Urine Protein Urine Glucose (UA) Urine Ketones Urine Blood Urine Nitrite Ur Leukocyte Esterase Urine Opiates Screen Ur Barbiturates Screen Ur Phencyclidine Scrn Ur Amphetamines Screen U Benzodiazepines Scrn Urine Cocaine Screen U Marijuana (THC) Screen Acetone, Qual Coronavirus (PCR) NEGATIVE COVID-19 (BRENDA) Cancelled COVID-19 Clin Com Cancelled Influenza Type A (PCR) NEGATIVE Influenza Type B (PCR) NEGATIVE RSV RNA Qual (PCR) NEGATIVE 08/17/20 08/17/20 08/17/20 15:57 16:56 19:15 MCV MCH MCHC RDW Plt Count MPV Immature Gran % (Auto) Neut % (Auto) Lymph % (Auto) [place] % (Auto) Eos % (Auto) Baso % (Auto) Lymph # (Auto) [place] # (Auto) Eos # (Auto) Baso # (Auto) Abs Immat Gran (auto) Absolute Neuts (auto) Absolute Nucleated RBC Nucleated RBC % (auto) Anion Gap 19 Estim Creat Clear Calc 60.6 Estimated GFR 59 POC Glucose 242 H 197 H Random Glucose 384 H* Calcium 9.5 Phosphorus Magnesium Total Bilirubin Direct Bilirubin AST ALT Alkaline Phosphatase Total Protein Albumin Beta HCG, Quant Urine Color Urine Appearance Urine pH Ur Specific [place] Urine Protein Urine Glucose (UA) Urine Ketones Urine Blood Urine Nitrite Ur Leukocyte Esterase Urine Opiates Screen Ur Barbiturates Screen Ur Phencyclidine Scrn Ur Amphetamines Screen U Benzodiazepines Scrn Urine Cocaine Screen U Marijuana (THC) Screen Acetone, Qual Coronavirus (PCR) COVID-19 (BRENDA) COVID-19 Clin Com Influenza Type A (PCR) Influenza Type B (PCR) RSV RNA Qual (PCR) Critical Care Time Critical Care Time (minutes): 90
[2020-08-17 20:23] LABS: Anion Gap 13 (12-20); Blood Urea Nitrogen 21 mg/dL (9-16); Calcium 9.1 mg/dL (8.4-10.2); Carbon Dioxide 33 mmol/L (22-29); Chloride 121 mmol/L (96-108); Creatinine Clr Calc Pharmacy 68.3; Estimated Glomerular Filt Rate > 60; Glucose Random 194 mg/dL (60-115); Potassium 3.9 mmol/L (3.3-5.1); Sodium 163 mmol/L (135-145)
[2020-08-17] MEDS: Haloperidol Lactate 5 MG/ML VIAL IM (20:41)
[2020-08-17 20:53] LABS: Glucose, Whole Blood 155 mg/dL (60-115)
[2020-08-17 22:05] LABS: Glucose, Whole Blood 145 mg/dL (60-115)
--- NOTE | 2020-08-17 23:14 | P.PCNCC_ITS ---
Procedures Central Line Placement A quick time-out was made for clarification and proper patient identification, patient was positioned, landmarks were identified, US used to locate a large compressible IJ. The right neck was widely prepped and draped in a full sterile fashion. Ultrasound was used to locate again the right IJ, the vein was cannulated on the 1st pass with an 18 gauge thin needle, dark nonpulsatile blood return was obtained. The wire was threaded, a small incision was made at its base and dilator inserted. A Double Lumen Hemo Dialysis catheter was advanced into the vein up to the hub without problems, wired was removed. Ports had good blood return and flushed x2. The catheter was secured with 3 sutures at 3 sites, a Biopatch and dry sterile dressing were applied. Post procedure chest x-ray showed the line to be in good position without pneumothorax. No bleeding or complications noted.: Central Line Comments: Patient's Precedex drip was increased during the procedure, she also received 0.5 mg of IV Dilaudid x1. Consent was not obtained for the patient was confused. Prior to placing the dialysis catheter I did speak to both Dr. Bora Mancini as well as Dr. Stiles to home I expressed my concern about the patient looking worse clinically speaking. 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 Patient is not able to take Kayexalate in this state. Is worth noting that the patient had 2 runs of V-tach during the time that I s tarted the procedure while prepping inserting the needle, crash cart and GlideScope were at bedside as we were concerned that there might be a complication and were ready for it Luckily, this V-tach resolve on its own. The procedure was completed without any further problems. Consent for Procedure: Elective - informed consent obtained Sterile Technique Used: Yes Patient placed on monitor/pulse ox: Yes prep: mask, gown and gloves Central line prep: Povidone-Iodine 1%, Chlorhexidine scrub and sterile drapes applied Local anesthesia used: lidocaine 1% Amount of anesthesia used (ml): 5 Ultrasound used for placement: Yes Central line lumen inserted: double (Dialysis catheter) Post procedure: sutured in place, good blood return, all ports aspirated, flushed, capped and sterile dressing applied Post procedure x-ray: tip of catheter in good position and no pneumothorax seen Patient tolerated procedure: well and no complications (Please see above) Complications: hematoma at puncture site (Small less than a golf ball size as the patient is on heparin drip)
[2020-08-17 23:58] LABS: Magnesium 2.6 mg/dL (1.6-2.6); Phosphorus 4.5 mg/dL (2.7-4.5)
[2020-08-17 23:59] LABS: Glucose, Whole Blood 107 mg/dL (60-115)
[2020-08-17 23:59] LABS: Glucose, Whole Blood 106 mg/dL (60-115)
[2020-08-18] VITALS (25 sets, daily range): BP systolic 81–120; BP diastolic 35–79; PULSE 67–85; RESP 16–29; TEMP 35.1–37.5; O2SAT 95–100; BMI 18.0
[2020-08-18 00:34] LABS: Anion Gap 12 (12-20); Blood Urea Nitrogen 21 mg/dL (9-16); Calcium 8.3 mg/dL (8.4-10.2); Carbon Dioxide 33 mmol/L (22-29); Chloride 119 mmol/L (96-108); Creatinine Clr Calc Pharmacy 62.3; Estimated Glomerular Filt Rate > 60; Glucose Random 102 mg/dL (60-115); Potassium 4.3 mmol/L (3.3-5.1); Sodium 160 mmol/L (135-145)
[2020-08-18 01:15] LABS: Glucose, Whole Blood 115 mg/dL (60-115)
--- NOTE | 2020-08-18 01:17 | W.PM.CCHP ---
Procedures Abscess I/D Consent for Procedure: Emergent-no informed consent obtained Site: neck (Right neck over sternal jugular vein) Side (if applicable): right Sedation/analgesia: other (Precedex drip) Technique: needle aspiration Amount of fluid (mL): 10 Irrigation: No Packing used?: none Complications: pain Additional comments: Upon probing the area with an 18 gauge needle right under the a scab of these abscess which was the size of a around 1 cm marble, fluctuant, immediate release of green, foul, purulent material was noted. This was cleaned, I expressed the area even more and obtain some more to collect a culture which was sent for culture and Gram stain. Patient tolerated this well, no complications. No packing needed.
[2020-08-18 02:08] LABS: Glucose, Whole Blood 90 mg/dL (60-115)
[2020-08-18 02:52] LABS: Glucose, Whole Blood 102 mg/dL (60-115)
[2020-08-18 04:03] LABS: Glucose, Whole Blood 128 mg/dL (60-115)
[2020-08-18] MEDS: dexmedeTOMIDidine HCL/NS 400 MCG/100 ML INFUS..BTL 11.61 MCG IVCONT (04:27)
[2020-08-18] MEDS: Dextrose 5 % 1,000 ML 200 ML IVCONT (04:27)
[2020-08-18 05:03] LABS: Glucose, Whole Blood 148 mg/dL (60-115)
[2020-08-18 06:04] LABS: Basophils Absolute Auto 0.1 X10*3/uL (0.0-0.2); Basophils Percent Auto 0.2 % (0-2); Hematocrit 29.4 % (37-47); Hemoglobin 9.7 g/dl (12.0-16.0); Imm Gran Abs Auto 0.12 X10*3/uL (0.00-0.03); Imm Gran Pct Auto 0.6 % (0.0-0.4); Lymphocytes Absolute Auto 4.2 X10*3/uL (1.2-4.9); Lymphocytes Percent Auto 19.2 % (20-40); MANUAL DIFF FLAG SCAN; Mean Corpuscular Hemoglobin 28.4 pg (27.0-33.0); Mean Platelet Volume 10.1 fL (9.4-12.3); Monocytes Absolute Auto 1.3 X10*3/uL (0.1-1.2); Monocytes Percent Auto 6.1 % (2-11); Neutrophils Absolute Auto 16.1 X10*3/uL (2.0-8.3); Neutrophils Percent Auto 73.9 % (45-73); PLT CLUMP 1; Red Blood Count 3.42 X10*6/uL (4.20-5.50); Red Cell Distribution Width 14.4 % (11.0-16.0); SCAN SMEAR FLAG 1
[2020-08-18 06:07] LABS: Alanine Aminotransferase 22 U/L (0-31); Albumin Level 2.9 g/dL (3.5-5.0); Alkaline Phosphatase 119 U/L (39-117); Anion Gap 14 (12-20); Aspartate Amino Transferase 20 U/L (5-31); Bilirubin Total 0.3 mg/dL (0.0-1.0); Blood Urea Nitrogen 22 mg/dL (9-16); Calcium 7.8 mg/dL (8.4-10.2); Carbon Dioxide 30 mmol/L (22-29); Chloride 114 mmol/L (96-108); Creatinine Clr Calc Pharmacy 46.4; Estimated Glomerular Filt Rate 49; Glucose Random 161 mg/dL (60-115); Potassium 4.3 mmol/L (3.3-5.1); Sodium 154 mmol/L (135-145); Total Protein 5.3 g/dL (6.5-8.0)
[2020-08-18 06:15] LABS: White Blood Count 21.8 X10*3/uL (4.8-10.8)
--- NOTE | 2020-08-18 06:26 | PC.NURSE ---
Pt oriented to self and hospital . On precedex, titrated per emar, easily arrousable. Restraints taken off per documentation. Pt occasionally yells out but falls back to sleep Lungs clear, on RA. U/o 320 for entire shift, PA aware. Sr on tele. Abcess drained bedside per PA and culture sent. Wounds and scabs all over body. Repo q2hr, airloss bed.
[2020-08-18 06:41] LABS: Platelet Count 195 X10*3/uL (160-400); SLIDE REVIEW VERIFIED
--- NOTE | 2020-08-18 07:27 | PM.CCPN ---
Subjective Subjective Date of Service: 08/18/20 Interval History: 24-year-old female polysubstance abuse this time testing positive for cocaine presents with altered mental status and initially found lying on the ground hyperglycemic given 2 L of normal saline in the ER but clearly had significant metabolic disarray from diabetic ketoacidosis and there was evidence of hypernatremia upon presentation which probably exacerbated from the normal saline and currently on just plain D5W to try to partially correct this. Anion gap is since closed no longer ketoacidotic at this point but still somewhat altered on dexmedetomidine with sodium of 154 and will reassess over time once the sodium drops below 150 for buddhism of mental status but current concerns are a what looks like an abscess in the right neck a in a clearly there was pus that was extracted cultures are pending [place] [id number] and apparently about 2 weeks earlier she had a central line in that area just to be sure that it it does not represent a of Lauren septic phlebitis even though there was no evidence of surrounding cellulitis Physical Exam Vital Signs: Vital Signs: Last Vital Signs Temp 97.0 F 08/18/20 06:00 Pulse 81 08/18/20 06:00 Resp 20 08/18/20 06:00 BP 86/36 L 08/18/20 06:00 Pulse Ox 100 08/18/20 06:00 Body Mass Index 18.0 Const: Other: She has terrible teeth and gums and clearly it see Alvarado to potential source of blood stream contamination as well But no palpable adenopathy and has good bilateral carotid upstrokes and no neck vein distension Chest is clear no adventitious sounds Cardiac exam with no gallops no murmurs Abdomen soft with no organomegaly nontender Skin otherwise intact no cellulitis no edema Objective Data Labs CBC & Chem 7: 08/18/20 05:21 08/18/20 05:21 Labs: Laboratory Results - last 24 hr 08/17/20 08/17/20 08/17/20 08:29 08:31 09:13 WBC 13.0 H RBC 4.10 L Hgb 11.7 L Hct 40.1 D MCV 97.8 MCH 28.5 MCHC 29.2 L RDW 15.2 Plt Count 439 H D MPV 10.7 Immature Gran % (Auto) 0.6 H Neut % (Auto) 88.4 H Lymph % (Auto) 6.2 L [place] % (Auto) 4.7 Eos % (Auto) 0.0 Baso % (Auto) 0.1 Lymph # (Auto) 0.8 L [place] # (Auto) 0.6 Eos # (Auto) 0.0 Baso # (Auto) 0.0 Abs Immat Gran (auto) 0.08 H Absolute Neuts (auto) 11.5 H Absolute Nucleated RBC 0.000 Nucleated RBC % (auto) 0.0 Smear Tech's Comments Sodium Potassium Chloride Carbon Dioxide Anion Gap BUN Creatinine Estim Creat Clear Calc Estimated GFR POC Glucose > 600 H* > 600 H* Random Glucose Calcium Phosphorus Magnesium Total Bilirubin Direct Bilirubin AST ALT Alkaline Phosphatase Total Protein Albumin Beta HCG, Quant Urine Color Urine Appearance Urine pH Ur Specific [place] Urine Protein Urine Glucose (UA) Urine Ketones Urine Blood Urine Nitrite Ur Leukocyte Esterase Urine Opiates Screen Ur Barbiturates Screen Ur Phencyclidine Scrn Ur Amphetamines Screen U Benzodiazepines Scrn Urine Cocaine Screen U Marijuana (THC) Screen Acetone, Qual Coronavirus (PCR) COVID-19 ([facility]) COVID-19 Clin Com Influenza Type A (PCR) Influenza Type B (PCR) RSV RNA Qual (PCR) 08/17/20 08/17/20 08/17/20 09:13 11:26 11:29 WBC RBC Hgb Hct MCV MCH MCHC RDW Plt Count MPV Immature Gran % (Auto) Neut % (Auto) Lymph % (Auto) [place] % (Auto) Eos % (Auto) Baso % (Auto) Lymph # (Auto) [place] # (Auto) Eos # (Auto) Baso # (Auto) Abs Immat Gran (auto) Absolute Neuts (auto) Absolute Nucleated RBC Nucleated RBC % (auto) Smear Tech's Comments Sodium 142 Potassium 6.4 H* D Chloride 95 L Carbon Dioxide 11 L Anion Gap 42 H BUN 28 H D Creatinine 2.08 H Estim Creat Clear Calc 33.5 Estimated GFR 30 POC Glucose > 600 H* > 600 H* Random Glucose 1467 H* Calcium 9.9 D Phosphorus Magnesium 3.8 H* Total Bilirubin 0.3 Direct Bilirubin 0.2 AST 21 ALT 33 H Alkaline Phosphatase 185 H D Total Protein 7.4 Albumin 4.0 D Beta HCG, Quant < 2 Urine Color Urine Appearance Urine pH Ur Specific [place] Urine Protein Urine Glucose (UA) Urine Ketones Urine Blood Urine Nitrite Ur Leukocyte Esterase Urine Opiates Screen Ur Barbiturates Screen Ur Phencyclidine Scrn Ur Amphetamines Screen U Benzodiazepines Scrn Urine Cocaine Screen U Marijuana (THC) Screen Acetone, Qual Moderate H Coronavirus (PCR) COVID-19 ([facility]) COVID-19 Clin Com Influenza Type A (PCR) Influenza Type B (PCR) RSV RNA Qual (PCR) 08/17/20 08/17/20 08/17/20 11:49 11:49 12:58 WBC RBC Hgb Hct MCV MCH MCHC RDW Plt Count MPV Immature Gran % (Auto) Neut % (Auto) Lymph % (Auto) [place] % (Auto) Eos % (Auto) Baso % (Auto) Lymph # (Auto) [place] # (Auto) Eos # (Auto) Baso # (Auto) Abs Immat Gran (auto) Absolute Neuts (auto) Absolute Nucleated RBC Nucleated RBC % (auto) Smear Tech's Comments Sodium Potassium Chloride Carbon Dioxide Anion Gap BUN Creatinine Estim Creat Clear Calc Estimated GFR POC Glucose > 600 H* Random Glucose Calcium Phosphorus Magnesium Total Bilirubin Direct Bilirubin AST ALT Alkaline Phosphatase Total Protein Albumin Beta HCG, Quant Urine Color STRAW Urine Appearance CLEAR Urine pH 5.0 Ur Specific [place] 1.010 Urine Protein NEG Urine Glucose (UA) 500 H Urine Ketones >=80 Urine Blood NEG Urine Nitrite NEG Ur Leukocyte Esterase NEG Urine Opiates Screen Not Detected Ur Barbiturates Screen Not Detected Ur Phencyclidine Scrn Not Detected Ur Amphetamines Screen Not Detected U Benzodiazepines Scrn Not Detected Urine Cocaine Screen POSITIVE H U Marijuana (THC) Screen Not Detected Acetone, Qual Coronavirus (PCR) COVID-19 ([facility]) COVID-19 Clin Com Influenza Type A (PCR) Influenza Type B (PCR) RSV RNA Qual (PCR) 08/17/20 08/17/20 08/17/20 13:00 14:18 14:25 WBC RBC Hgb Hct MCV MCH MCHC RDW Plt Count MPV Immature Gran % (Auto) Neut % (Auto) Lymph % (Auto) [place] % (Auto) Eos % (Auto) Baso % (Auto) Lymph # (Auto) [place] # (Auto) Eos # (Auto) Baso # (Auto) Abs Immat Gran (auto) Absolute Neuts (auto) Absolute Nucleated RBC Nucleated RBC % (auto) Smear Tech's Comments Sodium 160 H* Potassium 3.0 L D Chloride 118 H D Carbon Dioxide 19 L Anion Gap 26 H BUN 24 H Creatinine 1.55 H Estim Creat Clear Calc 45.0 Estimated GFR 42 POC Glucose > 600 H* 526 H* Random Glucose 670 H* Calcium 9.9 Phosphorus 1.9 L Magnesium 3.1 H Total Bilirubin Direct Bilirubin AST ALT Alkaline Phosphatase Total Protein Albumin 3.8 Beta HCG, Quant Urine Color Urine Appearance Urine pH Ur Specific [place] Urine Protein Urine Glucose (UA) Urine Ketones Urine Blood Urine Nitrite Ur Leukocyte Esterase Urine Opiates Screen Ur Barbiturates Screen Ur Phencyclidine Scrn Ur Amphetamines Screen U Benzodiazepines Scrn Urine Cocaine Screen U Marijuana (THC) Screen Acetone, Qual Coronavirus (PCR) COVID-19 ([facility]) COVID-19 Clin Com Influenza Type A (PCR) Influenza Type B (PCR) RSV RNA Qual (PCR) 08/17/20 08/17/20 08/17/20 14:40 14:45 14:54 WBC RBC Hgb Hct MCV MCH MCHC RDW Plt Count MPV Immature Gran % (Auto) Neut % (Auto) Lymph % (Auto) [place] % (Auto) Eos % (Auto) Baso % (Auto) Lymph # (Auto) [place] # (Auto) Eos # (Auto) Baso # (Auto) Abs Immat Gran (auto) Absolute Neuts (auto) Absolute Nucleated RBC Nucleated RBC % (auto) Smear Tech's Comments Sodium Potassium Chloride Carbon Dioxide Anion Gap BUN Creatinine Estim Creat Clear Calc Estimated GFR POC Glucose 462 H* Random Glucose Calcium Phosphorus Magnesium Total Bilirubin Direct Bilirubin AST ALT Alkaline Phosphatase Total Protein Albumin Beta HCG, Quant Urine Color Urine Appearance Urine pH Ur Specific [place] Urine Protein Urine Glucose (UA) Urine Ketones Urine Blood Urine Nitrite Ur Leukocyte Esterase Urine Opiates Screen Ur Barbiturates Screen Ur Phencyclidine Scrn Ur Amphetamines Screen U Benzodiazepines Scrn Urine Cocaine Screen U Marijuana (THC) Screen Acetone, Qual Coronavirus (PCR) NEGATIVE COVID-19 ([facility]DA) Cancelled COVID-19 Clin Com Cancelled Influenza Type A (PCR) NEGATIVE Influenza Type B (PCR) NEGATIVE RSV RNA Qual (PCR) NEGATIVE 08/17/20 08/17/20 08/17/20 15:57 16:56 19:15 WBC RBC Hgb Hct MCV MCH MCHC RDW Plt Count MPV Immature Gran % (Auto) Neut % (Auto) Lymph % (Auto) [place] % (Auto) Eos % (Auto) Baso % (Auto) Lymph # (Auto) [place] # (Auto) Eos # (Auto) Baso # (Auto) Abs Immat Gran (auto) Absolute Neuts (auto) Absolute Nucleated RBC Nucleated RBC % (auto) Smear Tech's Comments Sodium 163 H* Potassium 3.0 L Chloride 122 H Carbon Dioxide 25 Anion Gap 19 BUN 21 H Creatinine 1.15 Estim Creat Clear Calc 60.6 Estimated GFR 59 POC Glucose 242 H 197 H Random Glucose 384 H* Calcium 9.5 Phosphorus Magnesium Total Bilirubin Direct Bilirubin AST ALT Alkaline Phosphatase Total Protein Albumin Beta HCG, Quant Urine Color Urine Appearance Urine pH Ur Specific [place] Urine Protein Urine Glucose (UA) Urine Ketones Urine Blood Urine Nitrite Ur Leukocyte Esterase Urine Opiates Screen Ur Barbiturates Screen Ur Phencyclidine Scrn Ur Amphetamines Screen U Benzodiazepines Scrn Urine Cocaine Screen U Marijuana (THC) Screen Acetone, Qual Coronavirus (PCR) COVID-19 ([facility]) COVID-19 Clin Com Influenza Type A (PCR) Influenza Type B (PCR) RSV RNA Qual (PCR) 08/17/20 08/17/20 08/17/20 19:34 20:50 22:00 WBC RBC Hgb Hct MCV MCH MCHC RDW Plt Count MPV Immature Gran % (Auto) Neut % (Auto) Lymph % (Auto) [place] % (Auto) Eos % (Auto) Baso % (Auto) Lymph # (Auto) [place] # (Auto) Eos # (Auto) Baso # (Auto) Abs Immat Gran (auto) Absolute Neuts (auto) Absolute Nucleated RBC Nucleated RBC % (auto) Smear Tech's Comments Sodium 163 H* Potassium 3.9 D Chloride 121 H Carbon Dioxide 33 H Anion Gap 13 BUN 21 H Creatinine 1.02 Estim Creat Clear Calc 68.3 Estimated GFR > 60 POC Glucose 155 H 145 H Random Glucose 194 H D Calcium 9.1 Phosphorus 4.5 Magnesium 2.6 Total Bilirubin Direct Bilirubin AST ALT Alkaline Phosphatase Total Protein Albumin Beta HCG, Quant Urine Color Urine Appearance Urine pH Ur Specific [place] Urine Protein Urine Glucose (UA) Urine Ketones Urine Blood Urine Nitrite Ur Leukocyte Esterase Urine Opiates Screen Ur Barbiturates Screen Ur Phencyclidine Scrn Ur Amphetamines Screen U Benzodiazepines Scrn Urine Cocaine Screen U Marijuana (THC) Screen Acetone, Qual Coronavirus (PCR) COVID-19 ([facility]) COVID-19 Clin Com Influenza Type A (PCR) Influenza Type B (PCR) RSV RNA Qual (PCR) 08/17/20 08/17/20 08/17/20 23:13 23:52 23:53 WBC RBC Hgb Hct MCV MCH MCHC RDW Plt Count MPV Immature Gran % (Auto) Neut % (Auto) Lymph % (Auto) [place] % (Auto) Eos % (Auto) Baso % (Auto) Lymph # (Auto) [place] # (Auto) Eos # (Auto) Baso # (Auto) Abs Immat Gran (auto) Absolute Neuts (auto) Absolute Nucleated RBC Nucleated RBC % (auto) Smear Tech's Comments Sodium 160 H* Potassium 4.3 Chloride 119 H Carbon Dioxide 33 H Anion Gap 12 BUN 21 H Creatinine 1.12 Estim Creat Clear Calc 62.3 Estimated GFR > 60 POC Glucose 107 106 Random Glucose 102 D Calcium 8.3 L D Phosphorus Magnesium Total Bilirubin Direct Bilirubin AST ALT Alkaline Phosphatase Total Protein Albumin Beta HCG, Quant Urine Color Urine Appearance Urine pH Ur Specific [place] Urine Protein Urine Glucose (UA) Urine Ketones Urine Blood Urine Nitrite Ur Leukocyte Esterase Urine Opiates Screen Ur Barbiturates Screen Ur Phencyclidine Scrn Ur Amphetamines Screen U Benzodiazepines Scrn Urine Cocaine Screen U Marijuana (THC) Screen Acetone, Qual Coronavirus (PCR) COVID-19 ([facility]) COVID-19 Clin Com Influenza Type A (PCR) Influenza Type B (PCR) RSV RNA Qual (PCR) 08/18/20 08/18/20 08/18/20 01:11 01:57 02:48 WBC RBC Hgb Hct MCV MCH MCHC RDW Plt Count MPV Immature Gran % (Auto) Neut % (Auto) Lymph % (Auto) [place] % (Auto) Eos % (Auto) Baso % (Auto) Lymph # (Auto) [place] # (Auto) Eos # (Auto) Baso # (Auto) Abs Immat Gran (auto) Absolute Neuts (auto) Absolute Nucleated RBC Nucleated RBC % (auto) Smear Tech's Comments Sodium Potassium Chloride Carbon Dioxide Anion Gap BUN Creatinine Estim Creat Clear Calc Estimated GFR POC Glucose 115 90 102 Random Glucose Calcium Phosphorus Magnesium Total Bilirubin Direct Bilirubin AST ALT Alkaline Phosphatase Total Protein Albumin Beta HCG, Quant Urine Color Urine Appearance Urine pH Ur Specific [place] Urine Protein Urine Glucose (UA) Urine Ketones Urine Blood Urine Nitrite Ur Leukocyte Esterase Urine Opiates Screen Ur Barbiturates Screen Ur Phencyclidine Scrn Ur Amphetamines Screen U Benzodiazepines Scrn Urine Cocaine Screen U Marijuana (THC) Screen Acetone, Qual Coronavirus (PCR) COVID-19 ([facility]) COVID-19 Clin Com Influenza Type A (PCR) Influenza Type B (PCR) RSV RNA Qual (PCR) 08/18/20 08/18/20 08/18/20 03:58 04:58 05:21 WBC 21.8 H RBC 3.42 L Hgb 9.7 L Hct 29.4 L D MCV 86.0 D MCH 28.4 MCHC 33.0 RDW 14.4 Plt Count 195 D MPV 10.1 Immature Gran % (Auto) 0.6 H Neut % (Auto) 73.9 H Lymph % (Auto) 19.2 L [place] % (Auto) 6.1 Eos % (Auto) 0.0 Baso % (Auto) 0.2 Lymph # (Auto) 4.2 [place] # (Auto) 1.3 H Eos # (Auto) 0.0 Baso # (Auto) 0.1 Abs Immat Gran (auto) 0.12 H Absolute Neuts (auto) 16.1 H Absolute Nucleated RBC 0.000 Nucleated RBC % (auto) 0.0 Smear Tech's Comments VERIFIED Sodium Potassium Chloride Carbon Dioxide Anion Gap BUN Creatinine Estim Creat Clear Calc Estimated GFR POC Glucose 128 H 148 H Random Glucose Calcium Phosphorus Magnesium Total Bilirubin Direct Bilirubin AST ALT Alkaline Phosphatase Total Protein Albumin Beta HCG, Quant Urine Color Urine Appearance Urine pH Ur Specific [place] Urine Protein Urine Glucose (UA) Urine Ketones Urine Blood Urine Nitrite Ur Leukocyte Esterase Urine Opiates Screen Ur Barbiturates Screen Ur Phencyclidine Scrn Ur Amphetamines Screen U Benzodiazepines Scrn Urine Cocaine Screen U Marijuana (THC) Screen Acetone, Qual Coronavirus (PCR) COVID-19 ([facility]) COVID-19 Clin Com Influenza Type A (PCR) Influenza Type B (PCR) RSV RNA Qual (PCR) 08/18/20 05:21 WBC RBC Hgb Hct MCV MCH MCHC RDW Plt Count MPV Immature Gran % (Auto) Neut % (Auto) Lymph % (Auto) [place] % (Auto) Eos % (Auto) Baso % (Auto) Lymph # (Auto) [place] # (Auto) Eos # (Auto) Baso # (Auto) Abs Immat Gran (auto) Absolute Neuts (auto) Absolute Nucleated RBC Nucleated RBC % (auto) Smear Tech's Comments Sodium 154 H Potassium 4.3 Chloride 114 H Carbon Dioxide 30 H Anion Gap 14 BUN 22 H Creatinine 1.34 Estim Creat Clear Calc 46.4 Estimated GFR 49 POC Glucose Random Glucose 161 H D Calcium 7.8 L D Phosphorus Magnesium Total Bilirubin 0.3 Direct Bilirubin AST 20 ALT 22 Alkaline Phosphatase 119 H D Total Protein 5.3 L D Albumin 2.9 L D Beta HCG, Quant Urine Color Urine Appearance Urine pH Ur Specific [place] Urine Protein Urine Glucose (UA) Urine Ketones Urine Blood Urine Nitrite Ur Leukocyte Esterase Urine Opiates Screen Ur Barbiturates Screen Ur Phencyclidine Scrn Ur Amphetamines Screen U Benzodiazepines Scrn Urine Cocaine Screen U Marijuana (THC) Screen Acetone, Qual Coronavirus (PCR) COVID-19 ([facility]ENDA) COVID-19 Clin Com Influenza Type A (PCR) Influenza Type B (PCR) RSV RNA Qual (PCR) Progress Note: A&P Assessment and plan (1) Acute renal failure: Status: Acute (2) Diabetic ketoacidosis: Status: Acute (3) Polysubstance abuse: Status: Acute (4) Altered mental status associated with intoxication: Status: Acute Assessment and Plan: The plan is to continue with D5W and insulin with the addition now of potassium for maintenance to relieve the hypernatremia gradually and hopefully mental status will start to restore but I will send off a sed rate await cultures
--- NOTE | 2020-08-18 07:30 | CA_ITS ---
Transthoracic Echocardiogram Patient (Last, First, Middle): María Morgan, Gender: Female Date of : 1995 Age: 24 Procedure Date: 08/18/2020 Procedure Type: Transthoracic Echocardiogram Location: ICU Height: 157.48 cm Weight: 44.45 kg BSA: 1.41 m2 Heart Rate: bpm BP: 86 / 36 mmHg [employer] C[employer] Farmer: Referring MD: Narciso Cuellar MD Symptoms: abscess at central line site, IVID, FEVER ENDOCARDITIS Study Quality: Fair ECG Rhythm: Sinus Conclusions: - The left ventricular systolic function is normal. The visually estimated ejection fraction is between 60-65%. - Large, mass like structure in the right atrium; measuring 3.5 x 2cm; could be vegetation or thrombus; attachment point is not clear, possibly lateral part of tricuspid annulus; in some views, there is protrusion into the tricuspid plane. - Small density noted in the non coronary cusp that could be vegetation. Findings Left Ventricle Normal left ventricular cavity size. There is normal left ventricular wall thickness. The left ventricular systolic function is normal. The visually estimated ejection fraction is between 60-65%. There is no evidence of regional wall motion abnormalities. Diastolic function is normal for age. Right Ventricle Normal right ventricular cavity size and systolic function. Atria Both atria are normal in size. Large, mass like structure in the right atrium; measuring 3.5 x 2cm; could be vegetation or thrombus; attachment point is not clear, possibly lateral part of tricuspid annulus; in some views, there is protrusion into the tricuspid plane. Aortic Valve There is a normal trileaflet aortic valve. There is no aortic valve stenosis. There is no aortic valve regurgitation. Small density noted in the non coronary cusp that could be vegetation. Mitral Valve The mitral valve appears normal. There is trace mitral valve regurgitation. There is no mitral valve stenosis. Pulmonic Valve The pulmonic valve was not well visualized. Tricuspid Valve Normal tricuspid valve structure. There is trace tricuspid valve regurgitation. The pulmonary artery systolic pressure is normal. Great Vessels The aortic annulus is normal in size. Venous The inferior vena cava is normal in size and collapses less than 50% with inspiration. Pericardium/Pleural There is no evidence of pericardial effusion. Prior Study Comparison No prior study available for comparison. Measurements 2D Linear Measurements IVSd: 0.75 0.6-0.9/0.6-1.0 cm LVIDd: 4.53 3.9-5.3/4.2-5.9 cm LVIDd Index: 3.21 2.4-3.2/2.2-3.1 cm/m2 LVIDs: 3.25 2.0-3.6 cm LVPWd: 0.83 0.7-1.1 cm Ao Root: 2.50 2.1-3.5 cm LA Diam: 2.50 2.7-3.8/3.0-4.0 cm LAIDs Index: 1.77 1.5-2.3 cm/m2 LV Mass: 140.78 67-162/88-224 g LV Mass Index: 99.84 43-95/49-115 g/m2 LVOT Diam: 1.90 3.0+(-)1.3 cm Mitral Valve MV Pk E: 1.04 MV PK A: 0.31 MV Decel Time: 197.00 E/A: 3.40 E'Lateral: 14.40 E'Medial: 11.20 E/E' Med: 9.30 E/E' Lat: 7.20 PHT: 58.00 MVA PHT: 3.79 Decel [place]: 5.29 Aortic Valve AoV Pk Garret: 1.07 AoV Mn Garret: 0.82 AoV VTI: 0.28 AoV Pk Grad: 5.00 Aov Mn Grad: 3.00 LINDSEY Cont.VTI: 1.77 LVOT LVOT Pk Garret: 0.91 LVOT Mn Garret: 0.66 LVOT VTI: 0.18 LVOT Pk Grad: 3.00 LVOT Mn Grad: 2.00 LVOT Diam: 1.90 LVOT Area: 2.84 Diastolic Function MV Pk E: 1.04 MV Pk A: 0.31 E/A: 3.40 E'Medial: 11.20 E/E' Med: 9.30 E' Laterial: 14.40 E/E' Lat: 7.20 Tricuspid Valve TR Pk Garret: 1.55 TR Pk Grad: 10.00 RA Press: 9.00 RVSP: 25.00 Great Vessels Aorta Ao Root-2D: 2.50 2.0-3.7 cm Pulmonary Valve PV Pk Garret: 0.83 Peak PV Grad: 3.00 Updated in Other Vendor System with Status of Final Garfield Wharton MD electronically signed on 08/18/2020 10:41:34 AM with status of Final
[2020-08-18 07:33] LABS: Glucose, Whole Blood 210 mg/dL (60-115)
[2020-08-18 08:46] LABS: Glucose, Whole Blood 140 mg/dL (60-115)
[2020-08-18] MEDS: KCl 20 mEq in 5 % Dextrose 20 MEQ/1,000 ML IV.SOLN 150 MEQ IVCONT (08:46)
[2020-08-18 10:16] LABS: Glucose, Whole Blood 136 mg/dL (60-115)
--- NOTE | 2020-08-18 10:23 | MHC.CDI.CONC ---
CDI Concurrent Query Service Date: 07/22/21 Documentation Clarification: Please clarify if you are treating a probable/suspected/likely or confirmed: Specifics: Protein calorie malnutrition, mild, moderate or severe Please specify if known or undetermined Provider Response: Moderate Protein-Calorie Malnutrition PLEASE DO NOT DELETE/MODIFY EXISTING CONTENT Additional information is needed in order to code to the highest accuracy and appropriate Severity of Illness (SOI). Please clarify the information noted below in your progress notes and discharge summary. Risk Factors/Clinical Indicators/Treatments Progress note ICU 08/17 - Impression: protein calorie malnutrition BMI 18.0 almost cachectic, IV drug abuse Albumin 2.9 Total protein 5.3 CDS: Vicki Munoz CCS, CDIS Contact Number: [phone] Please Review the information above and exercise your independent professional judgment in responding to the query. If you concur, pleas document in the PROGRESS NOTES and DISCHARGE SUMMARY. If you do not agree with the query, please document in the query above. Agree with moderate protein calorie malnutrition THIS QUERY IS PART OF THE PERMANENT MEDICAL RECORD
[2020-08-18 11:20] LABS: Glucose, Whole Blood 152 mg/dL (60-115)
[2020-08-18] MEDS: Piperacillin Sodium/Tazobactam 4.5 GM in 0.9 % Sodium Chloride 100 ML IV (11:26)
[2020-08-18] MEDS: vancomycin HCL 1,000 MG in 0.9 % Sodium Chloride 250 ML 270 MG IV (11:33)
[2020-08-18 11:41] LABS: Anion Gap 11 (12-20); Blood Urea Nitrogen 23 mg/dL (9-16); Calcium 8.2 mg/dL (8.4-10.2); Carbon Dioxide 30 mmol/L (22-29); Chloride 110 mmol/L (96-108); Creatinine Clr Calc Pharmacy 36.4; Estimated Glomerular Filt Rate 37; Glucose Random 162 mg/dL (60-115); Potassium 4.4 mmol/L (3.3-5.1); Sodium 147 mmol/L (135-145)
--- NOTE | 2020-08-18 11:51 | PM.CNNEP ---
History of Present Illness Reason for Consult Consult date: 08/18/20 Reason for consult: RUDI and HyperNa Chief Complaint Chief complaint: DKA History of Present Illness Narrative: Asked to see re: RUDI and HyperNa in setting of Hyperglycemic Crisis and TRV veg in IVDA w H/O DM. Evetns overnight noted with IV vol resustitaion and replacement of FWD with hypotonic fluids. SCr initially imoroved but now incr agian on recent repeat labs. Info obtained from EHR and D/W ICU team as she is confused. Review of Systems Review of Systems Yes Unobtainable due to mental condition PMFSH Past Medical History Medical History Anxiety Cocaine abuse Heroin abuse Social History Social History Household Members: None Housing: Homeless Unable to assess alcohol history related to: Unknown Smoking Status: Unknown if ever smoked Tobacco Type: Cigarette Substance Use Type: Crack/Cocaine and Heroin Currently Displaying Signs/Symptoms of Drug Intoxication Withdrawal: No Advance Directives: No Advance Directives Information Provided: No Do you have thoughts of harming others: None Do you have a plan to hurt others: No Plan service: No Current occupational status: unemployed Meds Allergies Allergy/AdvReac Type Severity Reaction Status Date / Time No Known Allergies Allergy Verified 07/22/20 16:27 Active Medications: Current Medications Generic Name Dose Route Start Last Admin Trade Name Freq PRN Reason Stop Dose Admin Dexmedetomidine HCl 400 mcg in 100 mls @ 8.709 mls/hr 08/17/20 14:45 08/18/20 07:38 Precedex IVCONT 0.5 mcg/kg/hr .[id number] MIKKI 7.26 mls/hr Titration Protocol 0.6 MCG/KG/HR Sodium Chloride 1,000 mls @ 100 mls/hr 08/18/20 12:00 Ns IVCONT .Q10H MIKKI Lorazepam 1 mg 08/18/20 10:40 Lorazepam 2 Mg/Ml Vial IVPUSH Q4H PRN anxiety/restlessness Pharmacy Consult 1 each 08/17/20 10:01 Consult Rx Perform Med Rec MISCELLANE ONCE PRN Consult order Sodium Chloride 3 ml 08/18/20 16:00 0.9 % Sodium Chloride Flush 3 Ml Syringe IVFLUSH QSHIFT [facility] Home Medications Medication Instructions Recorded Confirmed Last Taken Type insulin regular human [Novolin R 1 sliding scale dose SUBCUT 08/05/20 08/17/20 Unknown History Regular U-100 Insuln] USEASDIRECTD Physical Exam Vital Signs: Last Vital Signs Temp 98.4 F 08/18/20 10:00 Pulse 79 08/18/20 10:00 Resp 18 08/18/20 10:00 BP 89/40 L 08/18/20 10:00 Pulse Ox 100 08/18/20 10:00 Body Mass Index 18.0 Const Other: She has terrible teeth and gums and clearly it see Alvarado to potential source of blood stream contamination as well But no palpable adenopathy and has good bilateral carotid upstrokes and no neck vein distension Chest is clear no adventitious sounds Cardiac exam with no gallops no murmurs Abdomen soft with no organomegaly nontender Skin otherwise intact no cellulitis no edema Results Lab Results Result Diagrams: 08/18/20 05:21 08/18/20 11:07 Lab results: Chemistry 08/17/20 08/17/20 08/17/20 09:13 14:25 15:57 Sodium 142 160 H* 163 H* Potassium 6.4 H* D 3.0 L D 3.0 L Carbon Dioxide 11 L 19 L 25 BUN 28 H D 24 H 21 H Creatinine 2.08 H 1.55 H 1.15 Calcium 9.9 D 9.9 9.5 Phosphorus 1.9 L 08/17/20 08/17/20 08/18/20 19:34 23:52 05:21 Sodium 163 H* 160 H* 154 H Potassium 3.9 D 4.3 4.3 Carbon Dioxide 33 H 33 H 30 H BUN 21 H 21 H 22 H Creatinine 1.02 1.12 1.34 Calcium 9.1 8.3 L D 7.8 L D Phosphorus 4.5 08/18/20 11:07 Sodium 147 H Potassium 4.4 Carbon Dioxide 30 H BUN 23 H Creatinine 1.71 H Calcium 8.2 L Phosphorus Hematology 08/17/20 08/18/20 09:13 05:21 WBC 13.0 H 21.8 H Hgb 11.7 L 9.7 L Plt Count 439 H D 195 D Urinalysis 08/17/20 11:49 Urine Color STRAW Urine Appearance CLEAR Urine pH 5.0 Ur Specific [place] 1.010 Urine Protein NEG Urine Glucose (UA) 500 H Urine Ketones >=80 Urine Blood NEG Urine Nitrite NEG Ur Leukocyte Esterase NEG Assessment and Plan (1) Acute renal failure: Status: Acute (2) Diabetic ketoacidosis: Status: Acute (3) Polysubstance abuse: Status: Acute (4) Altered mental status associated with intoxication: Status: Acute 1. Non-POliguric RUDI: initially presentation c/w hypovol hypoperfusion RUDI but this am SCr incr again raises concern for new kidney injury related to TRV vegitation which can be assoc with IM-Cx mediated GN and/or septic emboli assoc ( paradoxical emboli) 2. Hyperglycemic Crisis: BS now controlled 3. HyperNa: d/t hypergly and osmotic diuresis w SNa coming down...based on most recent literature the rate of correction of hyperNa is not thought to be a cause of brain injury ( except in children) UNLIKE too rapid correnbction of hypoNa; nonethelss its best to avoid too rapid correction given the theortectical rsik of causeing cerebral edema REC: urine studies and track SNa; serum compl ( depressed in endocarditis assoc IM-Cx GN) will follow with team
--- NOTE | 2020-08-18 12:00 | MHC.CLN ---
RE: CONSULT PT IS SEVERELY MALNOURISHED PT WITH SEVERELY DEPLETED SUBCUTANEOUS FAT AND MUSCLE MASS, WITH 8% SIGINIFICANT WT LOSS X <30 DAYS, AND POOR PO PT IS CURRENTLY NPO RECOMMEND ADDING GLUCERNA TID WHEN DIET TO ADVANCE SUPPLEMENT WILL PROVIDE 711KCALS, 30G PROTEIN MONITOR CLOSELY FOR REFEEDING MG, PHOS AND K+
--- NOTE | 2020-08-18 12:04 | MHC.CM.PN ---
Pt well known to CM from last admission approximately 2 weeks ago: Pt is homeless, active IVDA, DM w/ DKA: Attempted to meet with pt to review d/c plans: pt very clearly verbalized that she did not want to participate in interview. Information obtained from ICU staff, EMR and review of last admission. Pt presents again for DKA, + tox screen and lab abnormalities. She also has a right neck absess. Per discussion with MD at rounds: pt has a very large tricuspid vegetation that would not be responsive to IV ATB and would require a valve replacement. He was doubtful that a tertiary center would accept her for this surgery given her history. At this time, pt is not willing to communicate and is vacillating between sleeping and aggression. Discussed her high risk status for d/c including the ? that she is not able to make sound decisions for herself. MD will order a formal psych eval once pt is medically cleared. MD understands pt may be a candidate for a section 35 or pursuance of legal guardianship. Per last admission, pt does not have any living parents and is estranged from her sister. She has lived in [place] and had been in the [facility] in [place], [place]. She cannot name her primary physician at this time. CM will follow for d/c planning.
[2020-08-18 12:08] LABS: Glucose, Whole Blood 202 mg/dL (60-115)
[2020-08-18 12:30] LABS: Erythrocyte Sedimentation Rate 18 MM/HR (0-20)
[2020-08-18] MEDS: 0.9 % Sodium Chloride Flush 3 ML SYRINGE IVFLUSH (13:09)
[2020-08-18] MEDS: 0.9 % Sodium Chloride 1,000 ML 100 ML IVCONT (13:09)
[2020-08-18] MEDS: dexmedeTOMIDidine HCL/NS 400 MCG/100 ML INFUS..BTL 7.26 MCG IVCONT (15:50)
--- NOTE | 2020-08-18 15:58 | P.CNID_ITS ---
History of Present Illness Data of Consult Service Date: 08/18/20 Requesting physician: Narciso Cuellar Primary Care Provider: Unknown Physician HPI Reason for consult: endocarditis She was brought in after found in grass on [address]. She is apparently homeless She has encephalopathy She has large tricuspid vegetation She has multiple skin lesions on face and nose Review of Systems Review of Systems: Yes Unobtainable due to mental condition Neurologic: Reports confusion Psychiatric: Psychiatric: Reports confusion PMFSH Past Medical History Medical History (Updated 08/18/20 @ 16:04 by Gricelda Rivero MD) Anxiety Cocaine abuse Endocarditis Heroin abuse Family History Family history: reviewed and not pertinent Social History Social History Household Members: None Housing: Homeless Unable to assess alcohol history related to: Unknown Smoking Status: Unknown if ever smoked Tobacco Type: Cigarette Substance Use Type: Crack/Cocaine and Heroin Currently Displaying Signs/Symptoms of Drug Intoxication Withdrawal: No Advance Directives: No Advance Directives Information Provided: No Do you have thoughts of harming others: None Do you have a plan to hurt others: No Plan service: No Current occupational status: unemployed Meds Allergies Allergy/AdvReac Type Severity Reaction Status Date / Time No Known Allergies Allergy Verified 07/22/20 16:27 Active Medications: Current Medications Generic Name Dose Route Start Last Admin Trade Name Freq PRN Reason Stop Dose Admin Dexmedetomidine HCl 400 mcg in 100 mls @ 8.709 mls/hr 08/17/20 14:45 08/18/20 15:50 Precedex IVCONT 0.5 mcg/kg/hr .[id number] MIKKI 7.26 mls/hr Administration Protocol 0.6 MCG/KG/HR Sodium Chloride 1,000 mls @ 100 mls/hr 08/18/20 12:00 08/18/20 13:09 Ns IVCONT 100 mls/hr .Q10H MIKKI Administration Lorazepam 1 mg 08/18/20 10:40 Lorazepam 2 Mg/Ml Vial IVPUSH Q4H PRN anxiety/restlessness Pharmacy Consult 1 each 08/17/20 10:01 Consult Rx Perform Med Rec MISCELLANE ONCE PRN Consult order Sodium Chloride 3 ml 08/18/20 16:00 08/18/20 13:09 0.9 % Sodium Chloride Flush 3 Ml Syringe IVFLUSH 3 ml [facility] Administration Home Medications Medication Instructions Recorded Confirmed Last Taken Type insulin regular human [Novolin R 1 sliding scale dose SUBCUT 08/05/20 08/17/20 Unknown History Regular U-100 Insuln] USEASDIRECTD Physical Exam Vital Signs: Vital Signs: Last Vital Signs Temp 98.4 F 08/18/20 10:00 Pulse 85 08/18/20 15:00 Resp 24 H 08/18/20 15:00 BP 100/51 L 08/18/20 15:00 Pulse Ox 100 08/18/20 15:00 Body Mass Index 18.0 Const: General: confusion Orientation/consciousness: confusion HENMT: Head: Yes normocephalic and Yes scalp tenderness Ears: hearing grossly normal bilaterally Mouth: Normal oral and palatal mucosa present Teeth and gingiva: caries and gingiva abnormal Throat: Yes postnasal drainage Eyes: Pupils: Pinpoint pupils Neck: Neck: Yes full ROM, Yes no meningeal signs and Yes supple Resp: Effort & Inspection: normal respiratory effort Cardio: Rate: regular rate Rhythm: regular rhythm Heart sounds: Murmur heart sound present (2/6 RONNELL) GI: Palpation (GI): Soft to palpation and nontender : General: Yes no CVA tenderness Back/Spine/Pelvis: Back: no CVA tenderness Skin: General skin exam: no rashes or lesions noted Neuro: General: no meningeal signs and confusion Extrem: General: Yes normal to inspection Results Labs CBC & Chem 7: 08/18/20 05:21 08/18/20 11:07 Labs: Short CBC 08/18/20 Range/Units 05:21 WBC 21.8 H (4.8-10.8) X10*3/uL Hgb 9.7 L (12.0-16.0) g/dl Hct 29.4 L D (37-47) % Plt Count 195 D (160-400) X10*3/uL BMP 08/17/20 08/17/20 08/17/20 15:57 19:34 23:52 Sodium 163 H* 163 H* 160 H* Potassium 3.0 L 3.9 D 4.3 Chloride 122 H 121 H 119 H Carbon Dioxide 25 33 H 33 H BUN 21 H 21 H 21 H Creatinine 1.15 1.02 1.12 Calcium 9.5 9.1 8.3 L D 08/18/20 08/18/20 05:21 11:07 Sodium 154 H 147 H Potassium 4.3 4.4 Chloride 114 H 110 H Carbon Dioxide 30 H 30 H BUN 22 H 23 H Creatinine 1.34 1.71 H Calcium 7.8 L D 8.2 L Liver Function 08/18/20 Range/Units 05:21 Total Bilirubin 0.3 (0.0-1.0) mg/dL AST 20 (5-31) U/L ALT 22 (0-31) U/L Alkaline Phosphatase 119 H D (39-117) U/L Albumin 2.9 L D (3.5-5.0) g/dL Microbiology Microbiology Results: Microbiology 08/17/20 21:43 Neck Gram Stain - Final 08/17/20 21:43 Neck Routine Culture - Preliminary No growth to date. Assessment and Plan (1) Altered mental status associated with intoxication: Status: Acute (2) Polysubstance abuse: Status: Acute (3) Endocarditis: Problem details: probable MRSA or MSSA Possible bartonella Status: Acute Vancomycin IV,goal trough 15-20 Doxycycline 100 mg bid cover possible typhus with multiple skin lesion s?bartonella Check HIV and Hepatitis C
[2020-08-18 17:16] LABS: Anion Gap 15 (12-20); Blood Urea Nitrogen 23 mg/dL (9-16); Calcium 7.8 mg/dL (8.4-10.2); Carbon Dioxide 24 mmol/L (22-29); Chloride 109 mmol/L (96-108); Creatinine Clr Calc Pharmacy 29.8; Estimated Glomerular Filt Rate 30; Glucose Random 421 mg/dL (60-115); Potassium 5.3 mmol/L (3.3-5.1); Sodium 143 mmol/L (135-145)
[2020-08-18] MEDS: Doxycycline Hyclate 100 MG in 0.9 % Sodium Chloride 250 ML 166.67 MG IV (17:38)
[2020-08-18 17:42] LABS: Glucose, Whole Blood 411 mg/dL (60-115)
[2020-08-18] MEDS: Insulin Glargine,Hum.rec.anlog 100 UNIT/ML 10 ML VIAL 15 UNIT SUBCUT (17:55)
[2020-08-18] MEDS: Lactated Ringers 1,000 ML 80 ML IVCONT (17:56)
[2020-08-18] MEDS: Insulin Regular, Human 100 UNIT/ML 3 ML VIAL IVPUSH (17:56)
[2020-08-18 21:16] LABS: Glucose, Whole Blood 364 mg/dL (60-115)
[2020-08-18] MEDS: Insulin Lispro 100 UNIT/ML 3 ML VIAL SUBCUT (21:40)
[2020-08-18 21:49] LABS: VBG Base Excess 2.8 mmol/L; VBG HCO3 24 mmol/L (22-26); VBG pCO2 29 mmHg; VBG pH 7.53 (7.32-7.43); VBG pO2 147 mmHg
[2020-08-18 22:02] LABS: Venous Blood Gas Refer to POC result
[2020-08-18 22:25] LABS: Anion Gap 14 (12-20); Blood Urea Nitrogen 28 mg/dL (9-16); Carbon Dioxide 24 mmol/L (22-29); Chloride 110 mmol/L (96-108); Creatinine Clr Calc Pharmacy 27.4; Estimated Glomerular Filt Rate 27; Glucose Random 470 mg/dL (60-115); Potassium 4.9 mmol/L (3.3-5.1); Sodium 143 mmol/L (135-145)
[2020-08-18 22:31] LABS: Glucose, Whole Blood 409 mg/dL (60-115)
[2020-08-18] MEDS: Insulin Regular, Human 100 UNIT/ML 3 ML VIAL 10 UNIT IVPUSH (22:42)
[2020-08-19] VITALS (12 sets, daily range): BP systolic 95–114; BP diastolic 61–83; PULSE 69–80; RESP 17–26; TEMP 35.2–36.9; O2SAT 98–100
[2020-08-19] MEDS: dexmedeTOMIDidine HCL/NS 400 MCG/100 ML INFUS..BTL 10.16 MCG IVCONT (01:15)
[2020-08-19 02:16] LABS: Glucose, Whole Blood 134 mg/dL (60-115)
[2020-08-19 03:21] LABS: Glucose, Whole Blood 108 mg/dL (60-115)
[2020-08-19 04:41] LABS: HIV AB/AG Nonreactive (Nonreactive); HIV Num 1 0.34 S/CO (0.00-0.99)
[2020-08-19 04:43] LABS: ~HepC Num1 14.75 S/CO (0.00-0.79); ~Hepatitis C Antibody Reactive (Nonreactive)
[2020-08-19] MEDS: Doxycycline Hyclate 100 MG in 0.9 % Sodium Chloride 250 ML 166.67 MG IV (05:18)
[2020-08-19 05:27] LABS: Glucose, Whole Blood 68 mg/dL (60-115)
--- NOTE | 2020-08-19 05:45 | MHC.CDI.CONC ---
CDI Concurrent Query Service Date: 07/22/21 Documentation Clarification: Please clarify if you are treating a probable/suspected/likely or confirmed: Specifics: encephalopathy Toxic encephalopathy Metabolic encephalopathy Please specify if other or undetermined Provider Response: Toxic Encephalopathy Other Diagnosis: Toxic encephalopathy related to polysubstance abuse PLEASE DO NOT DELETE/MODIFY EXISTING CONTENT Additional information is needed in order to code to the highest accuracy and appropriate Severity of Illness (SOI). Please clarify the information noted below in your progress notes and discharge summary. Risk Factors/Clinical Indicators/Treatments Altered mental status with associated intoxication, screaming, combative w staff. Cocaine use w altered mental status, hyperglycemic. ID notes 08/18 - Dx encephalopathy/confusion CDS: Vicki Munoz CCS, CDIS Contact Number: [phone] Please Review the information above and exercise your independent professional judgment in responding to the query. If you concur, pleas document in the PROGRESS NOTES and DISCHARGE SUMMARY. If you do not agree with the query, please document in the query above. THIS QUERY IS PART OF THE PERMANENT MEDICAL RECORD
[2020-08-19 06:00] LABS: Glucose, Whole Blood 179 mg/dL (60-115)
[2020-08-19 06:19] LABS: Basophils Absolute Auto 0.1 X10*3/uL (0.0-0.2); Basophils Percent Auto 0.4 % (0-2); Eosinophils Percent Auto 0.1 % (0-4); Hematocrit 34.4 % (37-47); Hemoglobin 11.2 g/dl (12.0-16.0); Imm Gran Pct Auto 0.6 % (0.0-0.4); Lymphocytes Percent Auto 25.6 % (20-40); MANUAL DIFF FLAG SCAN; Mean Corpuscular HGB Conc 32.6 g/dl (31.0-35.0); Mean Corpuscular Hemoglobin 28.7 pg (27.0-33.0); Mean Corpuscular Volume 88.2 fL (80-98); Monocytes Percent Auto 6.5 % (2-11); NRBC Pct Auto 0.2 /100WBC (0.0-0.2); Neutrophils Absolute Auto 10.4 X10*3/uL (2.0-8.3); Neutrophils Percent Auto 66.8 % (45-73); PLT CLUMP 1; Red Cell Distribution Width 15.2 % (11.0-16.0); SCAN SMEAR FLAG 1
[2020-08-19] MEDS: Insulin Regular, Human 100 UNIT/ML 3 ML VIAL IVPUSH (06:20)
--- NOTE | 2020-08-19 06:25 | PC.NURSE ---
Addendum entered by Taurus Frost RN 08/19/20 06:45: Dr Cuellar updated about loss of one of periph IV's & patient drinking PO fluids very well, and urine output improved. POC glucose just rechecked - 152. Original Note: Shift eval 3a-7a: POC glucose @ 0315 - 108 POC glucose @ 0525 - 68 Patient tremulous, but alert, oriented. Demanding. Deidra JEAN made aware of blood sugar 68 - ordered 1 amp D50 - given @ 0530. Right upper arm periph IV noted to be infiltrated - disconnected IV fluids - not compatible w/ antibiotics, fluids put on hold temporarily. Whining/demanding drinks. - given 3 gingerales, 3 juices. POC @ 0556 - 179. 4 units IV insulin ordered by Deidra JEAN in response to juice & D50 given & POC increasing - given @ 0620. Patient difficult IV stick - only obtainable through finger stick. Labs pending. Patient needing to be redirected frequently, but now resting in bed - precedex running.
[2020-08-19 06:38] LABS: Anion Gap 16 (12-20); Blood Urea Nitrogen 26 mg/dL (9-16); Carbon Dioxide 21 mmol/L (22-29); Chloride 116 mmol/L (96-108); Creatinine Clr Calc Pharmacy 31.3; Estimated Glomerular Filt Rate 31; Glucose Random 215 mg/dL (60-115); Phosphorus 4.7 mg/dL (2.7-4.5); Potassium 5.2 mmol/L (3.3-5.1); Sodium 148 mmol/L (135-145)
[2020-08-19 06:48] LABS: Glucose, Whole Blood 152 mg/dL (60-115)
[2020-08-19] MEDS: LORazepam 2 MG/ML VIAL 1 MG IVPUSH (07:06)
[2020-08-19] MEDS: 0.9 % Sodium Chloride Flush 3 ML SYRINGE IVFLUSH (07:06)
[2020-08-19 07:15] LABS: White Blood Count 15.5 X10*3/uL (4.8-10.8)
[2020-08-19 07:16] LABS: Glucose, Whole Blood 121 mg/dL (60-115)
[2020-08-19] MEDS: Insulin Glargine,Hum.rec.anlog 100 UNIT/ML 10 ML VIAL 20 UNIT SUBCUT (07:16)
[2020-08-19 07:17] LABS: SLIDE REVIEW VERIFIED
[2020-08-19 07:55] LABS: VBG Base Excess -1.3 mmol/L; VBG HCO3 23 mmol/L (22-26); VBG pCO2 37 mmHg; VBG pH 7.39 (7.32-7.43); VBG pO2 46 mmHg
--- NOTE | 2020-08-19 08:08 | P.PNCC_ITS ---
Subjective Subjective Date of Service: 08/19/20 Interval History: 24-year-old with IV drug abuse polysubstance abuse who presented with acute encephalopathy and diabetic ketoacidosis and significant hypernatremia and all the metabolic issues have reversed in in and in addition she developed acute on chronic stage III renal failure and BUN and creatinine have plateaued and beginning to recover and her urine volume is also increasing Mental status is much improved she is oriented more easy to awake but clearly needs psychiatry consult because her habits always revert to kind and she pr obably also would need a consult did in O2 help her with the substance abuse so she can maintain herself and in addition psychiatry consult to try to prevent these behavioral issues that she has but in addition she has also got horrible oral IG hygiene and dentition are in terrible shape and her echocardiogram shows what appears to be a rather large vegetation although I can not completely rule out either myxoma or hematoma in the right atrium but I do believe it is likely vegetation given her habits and her oral hygiene and therefore a infectious Disease is involved she was started on antibiotics with cultures pending but she would either need to make decisions on her own if deemed capable or have a fong appointed as there is no other family because if indeed this is a vegetation given its size and its potential embolic risk she might very well need surgery and possible tricuspid valve replacement but before hand a transesophageal echo to better evaluate the status of the mitral and aortic valve as well Physical Exam Vital Signs: Vital Signs: Last Vital Signs Temp 96.4 F L 08/19/20 08:00 Pulse 78 08/19/20 08:00 Resp 22 H 08/19/20 08:00 BP 95/62 08/19/20 08:00 Pulse Ox 99 08/19/20 08:00 Body Mass Index 18.0 Const: Other: Normotensive in normal sinus rhythm and has no focal neurologic issues and currently oriented No neck vein distension and good bilateral carotid upstrokes Abdomen benign tolerating diet with good bowel sounds and no organomegaly Chest clear Peripheral skin issues might very well represent scabies and she was started on permethrin Objective Data Labs CBC & Chem 7: 08/19/20 06:00 08/19/20 06:00 Labs: Laboratory Results - last 24 hr 08/18/20 08/18/20 08/18/20 08:43 10:12 11:07 WBC RBC Hgb Hct MCV MCH MCHC RDW Plt Count MPV Immature Gran % (Auto) Neut % (Auto) Lymph % (Auto) [place] % (Auto) Eos % (Auto) Baso % (Auto) Lymph # (Auto) [place] # (Auto) Eos # (Auto) Baso # (Auto) Abs Immat Gran (auto) Absolute Neuts (auto) Absolute Nucleated RBC Nucleated RBC % (auto) Smear Tech's Comments ESR VBG pH VBG pCO2 VBG pO2 VBG HCO3 VBG O2 Saturation VBG Base Excess Sodium 147 H Potassium 4.4 Chloride 110 H Carbon Dioxide 30 H Anion Gap 11 L BUN 23 H Creatinine 1.71 H Estim Creat Clear Calc 36.4 Estimated GFR 37 POC Glucose 140 H 136 H Random Glucose 162 H Calcium 8.2 L Phosphorus Magnesium Hepatitis C Ab (EIA) HIV 1&2 Ab/P24 Ag 4thGn 08/18/20 08/18/20 08/18/20 11:07 11:17 12:05 WBC RBC Hgb Hct MCV MCH MCHC RDW Plt Count MPV Immature Gran % (Auto) Neut % (Auto) Lymph % (Auto) [place] % (Auto) Eos % (Auto) Baso % (Auto) Lymph # (Auto) [place] # (Auto) Eos # (Auto) Baso # (Auto) Abs Immat Gran (auto) Absolute Neuts (auto) Absolute Nucleated RBC Nucleated RBC % (auto) Smear Tech's Comments ESR 18 VBG pH VBG pCO2 VBG pO2 VBG HCO3 VBG O2 Saturation VBG Base Excess Sodium Potassium Chloride Carbon Dioxide Anion Gap BUN Creatinine Estim Creat Clear Calc Estimated GFR POC Glucose 152 H 202 H Random Glucose Calcium Phosphorus Magnesium Hepatitis C Ab (EIA) HIV 1&2 Ab/P24 Ag 4thGn 08/18/20 08/18/20 08/18/20 16:42 16:42 16:42 WBC RBC Hgb Hct MCV MCH MCHC RDW Plt Count MPV Immature Gran % (Auto) Neut % (Auto) Lymph % (Auto) [place] % (Auto) Eos % (Auto) Baso % (Auto) Lymph # (Auto) [place] # (Auto) Eos # (Auto) Baso # (Auto) Abs Immat Gran (auto) Absolute Neuts (auto) Absolute Nucleated RBC Nucleated RBC % (auto) Smear Tech's Comments ESR VBG pH VBG pCO2 VBG pO2 VBG HCO3 VBG O2 Saturation VBG Base Excess Sodium 143 Potassium 5.3 H D Chloride 109 H Carbon Dioxide 24 Anion Gap 15 BUN 23 H Creatinine 2.09 H Estim Creat Clear Calc 29.8 Estimated GFR 30 POC Glucose Random Glucose 421 H* Calcium 7.8 L Phosphorus Magnesium Hepatitis C Ab (EIA) Reactive H HIV 1&2 Ab/P24 Ag 4thGn Nonreactive 08/18/20 08/18/20 08/18/20 17:40 21:12 21:42 WBC RBC Hgb Hct MCV MCH MCHC RDW Plt Count MPV Immature Gran % (Auto) Neut % (Auto) Lymph % (Auto) [place] % (Auto) Eos % (Auto) Baso % (Auto) Lymph # (Auto) [place] # (Auto) Eos # (Auto) Baso # (Auto) Abs Immat Gran (auto) Absolute Neuts (auto) Absolute Nucleated RBC Nucleated RBC % (auto) Smear Tech's Comments ESR VBG pH 7.53 H VBG pCO2 29 VBG pO2 147 VBG HCO3 24 VBG O2 Saturation 100.0 VBG Base Excess 2.8 Sodium Potassium Chloride Carbon Dioxide Anion Gap BUN Creatinine Estim Creat Clear Calc Estimated GFR POC Glucose 411 H* 364 H* Random Glucose Calcium Phosphorus Magnesium Hepatitis C Ab (EIA) HIV 1&2 Ab/P24 Ag 4thGn 08/18/20 08/18/20 08/19/20 21:46 22:27 02:12 WBC RBC Hgb Hct MCV MCH MCHC RDW Plt Count MPV Immature Gran % (Auto) Neut % (Auto) Lymph % (Auto) [place] % (Auto) Eos % (Auto) Baso % (Auto) Lymph # (Auto) [place] # (Auto) Eos # (Auto) Baso # (Auto) Abs Immat Gran (auto) Absolute Neuts (auto) Absolute Nucleated RBC Nucleated RBC % (auto) Smear Tech's Comments ESR VBG pH VBG pCO2 VBG pO2 VBG HCO3 VBG O2 Saturation VBG Base Excess Sodium 143 Potassium 4.9 Chloride 110 H Carbon Dioxide 24 Anion Gap 14 BUN 28 H Creatinine 2.27 H Estim Creat Clear Calc 27.4 Estimated GFR 27 POC Glucose 409 H* 134 H Random Glucose 470 H* Calcium 8.0 L Phosphorus Magnesium Hepatitis C Ab (EIA) HIV 1&2 Ab/P24 Ag 4thGn 08/19/20 08/19/20 08/19/20 03:17 05:25 05:56 WBC RBC Hgb Hct MCV MCH MCHC RDW Plt Count MPV Immature Gran % (Auto) Neut % (Auto) Lymph % (Auto) [place] % (Auto) Eos % (Auto) Baso % (Auto) Lymph # (Auto) [place] # (Auto) Eos # (Auto) Baso # (Auto) Abs Immat Gran (auto) Absolute Neuts (auto) Absolute Nucleated RBC Nucleated RBC % (auto) Smear Tech's Comments ESR VBG pH VBG pCO2 VBG pO2 VBG HCO3 VBG O2 Saturation VBG Base Excess Sodium Potassium Chloride Carbon Dioxide Anion Gap BUN Creatinine Estim Creat Clear Calc Estimated GFR POC Glucose 108 68 179 H Random Glucose Calcium Phosphorus Magnesium Hepatitis C Ab (EIA) HIV 1&2 Ab/P24 Ag 4thGn 08/19/20 08/19/20 08/19/20 06:00 06:00 06:44 WBC 15.5 H RBC 3.90 L Hgb 11.2 L Hct 34.4 L MCV 88.2 MCH 28.7 MCHC 32.6 RDW 15.2 Plt Count TNP MPV Not Reportable Immature Gran % (Auto) 0.6 H Neut % (Auto) 66.8 Lymph % (Auto) 25.6 [place] % (Auto) 6.5 Eos % (Auto) 0.1 Baso % (Auto) 0.4 Lymph # (Auto) 4.0 [place] # (Auto) 1.0 Eos # (Auto) 0.0 Baso # (Auto) 0.1 Abs Immat Gran (auto) 0.10 H Absolute Neuts (auto) 10.4 H Absolute Nucleated RBC 0.030 H Nucleated RBC % (auto) 0.2 Smear Tech's Comments VERIFIED ESR VBG pH VBG pCO2 VBG pO2 VBG HCO3 VBG O2 Saturation VBG Base Excess Sodium 148 H Potassium 5.2 H Chloride 116 H Carbon Dioxide 21 L Anion Gap 16 BUN 26 H Creatinine 1.99 H Estim Creat Clear Calc 31.3 Estimated GFR 31 POC Glucose 152 H Random Glucose 215 H D Calcium 8.0 L Phosphorus 4.7 H Magnesium 2.0 Hepatitis C Ab (EIA) HIV 1&2 Ab/P24 Ag 4thGn 08/19/20 08/19/20 07:13 07:49 WBC RBC Hgb Hct MCV MCH MCHC RDW Plt Count MPV Immature Gran % (Auto) Neut % (Auto) Lymph % (Auto) [place] % (Auto) Eos % (Auto) Baso % (Auto) Lymph # (Auto) [place] # (Auto) Eos # (Auto) Baso # (Auto) Abs Immat Gran (auto) Absolute Neuts (auto) Absolute Nucleated RBC Nucleated RBC % (auto) Smear Tech's Comments ESR VBG pH 7.39 VBG pCO2 37 VBG pO2 46 VBG HCO3 23 VBG O2 Saturation 68.0 VBG Base Excess -1.3 Sodium Potassium Chloride Carbon Dioxide Anion Gap BUN Creatinine Estim Creat Clear Calc Estimated GFR POC Glucose 121 H Random Glucose Calcium Phosphorus Magnesium Hepatitis C Ab (EIA) HIV 1&2 Ab/P24 Ag 4thGn Microbiology Microbiology Results: Microbiology 08/17/20 21:43 Neck Gram Stain - Final 08/17/20 21:43 Neck Routine Culture - Preliminary No growth to date. Progress Note: A&P Assessment and plan (1) Endocarditis: Problem details: probable MRSA or MSSA Possible bartonella Status: Acute (2) Altered mental status associated with intoxication: Status: Acute (3) Acute renal failure: Status: Acute (4) Diabetic ketoacidosis: Status: Acute (5) Polysubstance abuse: Status: Acute (6) Dehydration with hypernatremia: Status: Acute Assessment and Plan: Metabolic issues have resolved just mildly hypernatremic at 4.8 but the stopping her IV fluids and she is drinking and drinking free water so that should resolve completely glucose is better controlled no longer has an anion gap and tolerated lispro subcutaneous coverage and at this point needs continued infectious Disease follow-up and antibiotics IV and psychiatry consult so decisions could be made either by her or in her be half and probable cardiology consult as well as a substance abuse consult
[2020-08-19 08:11] LABS: Venous Blood Gas Refer to POC result
[2020-08-19 09:45] LABS: Glucose, Whole Blood 511 mg/dL (60-115)
[2020-08-19] MEDS: vancomycin HCL 1,000 MG in 0.9 % Sodium Chloride 250 ML 270 MG IV (10:27)
--- NOTE | 2020-08-19 11:08 | P.CNPS_ITS ---
History of Present Illness Date of Service: 08/19/2020 Chief Complaint: DKA Reason for Consult: capacity to make medical decision/section 35/underlying psychiatric problems Requesting physician: Narciso Cuellar Discussed with referring provider: Yes Sources of Information: patient interviewed and chart reviewed HPI Narrative: Ms. Morgan is a 24 year-old woman with hx of insulin-dependent DM, polysubstance use including opioids and cocaine. Ms. Fernando has had multiple ED visits/admissions to [facility] (at least 5 since 07/2020 including 07/22;08/05;08/06;08/16;08/17) for complications of untreated DM including DKA, acute renal failure and complication of substance use including accidental overdose (08/16/20 narcaned with 3mg) and endocarditis (08/17/20). Ms. Morgan has signed herself out of the hospital AMA in 3 occasions includin08/05/2020 when pt was in ICU being treated for profound metabolic acidosis/hypothermia/acute renal failure and DKA; 08/07/2020 after representing to [facility] ED again admitted for DKA and on 08/16/2020 when she was found unresponsive on the streets, receiving 3mg of narcan (which was effective) but pt found to have DKA. This admission pt represented to [facility] ED on 08/17/2020, she was found to have DKA, WBC elevated, found to have endocarditis. 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 It was explained to pt that without treatment, mainly IV antibiotics for first two week in hospital, she is at a significant risk of a sudden . Pt able to verbalize understanding of severity of her condition and consequence including sudden if she leaves hospital AMA. This junior copywriter met individually with pt, who reported that she was craving heroin and this was the driving motor of her decision to leave AMA. She also minimize risk by stating that if she felt any physical symptoms she would return to the ED, as she has done in the past. However, pt explained that current medical condition- endocarditis and large vegetation on her heart, she may not have warning signs and suffered an imminent . Pt again showed understanding of risks and still asked to be discharged AMA. Pt denies SI/HI. She reports living on the streets, family in [place] but limited contact with them. We discussed at lenght ways in which she can be comfortable in hospital with methadone for opioid cravings. She initially agreed and met with Xiomara Louise APRN. She was given methadone 30mg po, with plan to continue it daily. However, soon after receiving dose she continued to request AMA. Medical Evaluation Reviewed: Yes [facility] Medical History (Updated 08/21/20 @ 14:26 by Elizabet Rudd) Anxiety Cocaine abuse Endocarditis Heroin abuse Diagnostics Vital Signs (24Hr): Vital Signs - 24 hr 08/18/20 12:00 08/18/20 12:08 08/18/20 13:00 Temperature Pulse Rate 82 81 Respiratory Rate 18 22 H Blood Pressure 81/40 L 94/43 L 92/50 L Pulse Oximetry 100 100 08/18/20 14:00 08/18/20 15:00 08/18/20 16:00 Temperature Pulse Rate 84 85 82 Respiratory Rate 24 H 24 H 22 H Blood Pressure 91/46 L 100/51 L 88/52 L Pulse Oximetry 100 100 100 08/18/20 17:00 08/18/20 18:00 08/18/20 19:00 Temperature 99.5 F 99.5 F 99.3 F Pulse Rate 74 71 81 Respiratory Rate 22 H 22 H 25 H Blood Pressure 102/62 103/65 108/67 Pulse Oximetry 100 99 98 08/18/20 20:00 08/18/20 21:00 08/18/20 22:00 Temperature 98.2 F Pulse Rate 70 67 74 Respiratory Rate 19 24 H 29 H Blood Pressure 98/58 L 120/79 116/77 Pulse Oximetry 99 98 100 08/18/20 23:00 08/19/20 00:00 08/19/20 01:00 Temperature 97.3 F 97.5 F 97.2 F Pulse Rate 74 74 73 Respiratory Rate 22 H 22 H 20 Blood Pressure 107/71 104/67 107/71 Pulse Oximetry 100 100 100 08/19/20 02:00 08/19/20 03:00 08/19/20 04:00 Temperature 97.2 F 97 F 97 F Pulse Rate 71 71 70 Respiratory Rate 19 17 19 Blood Pressure 101/64 106/71 106/70 Pulse Oximetry 100 98 98 08/19/20 05:00 08/19/20 06:00 08/19/20 07:00 Temperature 97 F 96.4 F L 95.4 F L Pulse Rate 69 78 74 Respiratory Rate 18 18 23 H Blood Pressure 97/61 114/83 99/81 Pulse Oximetry 99 99 100 08/19/20 08:00 08/19/20 09:00 08/19/20 10:00 Temperature 96.4 F L 97.9 F Pulse Rate 78 79 80 Respiratory Rate 22 H 24 H 26 H Blood Pressure 95/62 113/81 112/76 Pulse Oximetry 99 100 100 08/19/20 10:50 Temperature 98.4 F Pulse Rate 79 Respiratory Rate 23 H Blood Pressure 113/66 Pulse Oximetry 100 Body Mass Index 18.0 Labs Results: 08/19/20 06:00 08/19/20 06:00 Labs: Laboratory Results - last 48 hr 08/17/20 08/17/20 08/17/20 11:26 11:29 11:49 WBC RBC Hgb Hct MCV MCH MCHC RDW Plt Count MPV Immature Gran % (Auto) Neut % (Auto) Lymph % (Auto) [place] % (Auto) Eos % (Auto) Baso % (Auto) Lymph # (Auto) [place] # (Auto) Eos # (Auto) Baso # (Auto) Abs Immat Gran (auto) Absolute Neuts (auto) Absolute Nucleated RBC Nucleated RBC % (auto) Smear Tech's Comments ESR VBG pH VBG pCO2 VBG pO2 VBG HCO3 VBG O2 Saturation VBG Base Excess Sodium Potassium Chloride Carbon Dioxide Anion Gap BUN Creatinine Estim Creat Clear Calc Estimated GFR POC Glucose > 600 H* > 600 H* Random Glucose Calcium Phosphorus Magnesium Total Bilirubin AST ALT Alkaline Phosphatase Total Protein Albumin Urine Color STRAW Urine Appearance CLEAR Urine pH 5.0 Ur Specific [place] 1.010 Urine Protein NEG Urine Glucose (UA) 500 H Urine Ketones >=80 Urine Blood NEG Urine Nitrite NEG Ur Leukocyte Esterase NEG Urine Opiates Screen Ur Barbiturates Screen Ur Phencyclidine Scrn Ur Amphetamines Screen U Benzodiazepines Scrn Urine Cocaine Screen U Marijuana (THC) Screen Coronavirus (PCR) COVID-19 (BRENDA) COVID-19 Clin Com Hepatitis C Ab (EIA) HIV 1&2 Ab/P24 Ag 4thGn Influenza Type A (PCR) Influenza Type B (PCR) RSV RNA Qual (PCR) 08/17/20 08/17/20 08/17/20 11:49 12:58 13:00 WBC RBC Hgb Hct MCV MCH MCHC RDW Plt Count MPV Immature Gran % (Auto) Neut % (Auto) Lymph % (Auto) [place] % (Auto) Eos % (Auto) Baso % (Auto) Lymph # (Auto) [place] # (Auto) Eos # (Auto) Baso # (Auto) Abs Immat Gran (auto) Absolute Neuts (auto) Absolute Nucleated RBC Nucleated RBC % (auto) Smear Tech's Comments ESR VBG pH VBG pCO2 VBG pO2 VBG HCO3 VBG O2 Saturation VBG Base Excess Sodium Potassium Chloride Carbon Dioxide Anion Gap BUN Creatinine Estim Creat Clear Calc Estimated GFR POC Glucose > 600 H* > 600 H* Random Glucose Calcium Phosphorus Magnesium Total Bilirubin AST ALT Alkaline Phosphatase Total Protein Albumin Urine Color Urine Appearance Urine pH Ur Specific [place] Urine Protein Urine Glucose (UA) Urine Ketones Urine Blood Urine Nitrite Ur Leukocyte Esterase Urine Opiates Screen Not Detected Ur Barbiturates Screen Not Detected Ur Phencyclidine Scrn Not Detected Ur Amphetamines Screen Not Detected U Benzodiazepines Scrn Not Detected Urine Cocaine Screen POSITIVE H U Marijuana (THC) Screen Not Detected Coronavirus (PCR) COVID-19 (BRENDA) COVID-19 Clin Com Hepatitis C Ab (EIA) HIV 1&2 Ab/P24 Ag 4thGn Influenza Type A (PCR) Influenza Type B (PCR) RSV RNA Qual (PCR) 08/17/20 08/17/20 08/17/20 14:18 14:18 14:25 WBC RBC Hgb Hct MCV MCH MCHC RDW Plt Count MPV Immature Gran % (Auto) Neut % (Auto) Lymph % (Auto) [place] % (Auto) Eos % (Auto) Baso % (Auto) Lymph # (Auto) [place] # (Auto) Eos # (Auto) Baso # (Auto) Abs Immat Gran (auto) Absolute Neuts (auto) Absolute Nucleated RBC Nucleated RBC % (auto) Smear Tech's Comments ESR VBG pH VBG pCO2 VBG pO2 VBG HCO3 VBG O2 Saturation VBG Base Excess Sodium 160 H* Potassium 3.0 L D Chloride 118 H D Carbon Dioxide 19 L Anion Gap 26 H BUN 24 H Creatinine 1.55 H Estim Creat Clear Calc 45.0 Estimated GFR 42 POC Glucose 526 H* 511 H* Random Glucose 670 H* Calcium 9.9 Phosphorus 1.9 L Magnesium 3.1 H Total Bilirubin AST ALT Alkaline Phosphatase Total Protein Albumin 3.8 Urine Color Urine Appearance Urine pH Ur Specific [place] Urine Protein Urine Glucose (UA) Urine Ketones Urine Blood Urine Nitrite Ur Leukocyte Esterase Urine Opiates Screen Ur Barbiturates Screen Ur Phencyclidine Scrn Ur Amphetamines Screen U Benzodiazepines Scrn Urine Cocaine Screen U Marijuana (THC) Screen Coronavirus (PCR) COVID-19 (BRENDA) COVID-19 Clin Com Hepatitis C Ab (EIA) HIV 1&2 Ab/P24 Ag 4thGn Influenza Type A (PCR) Influenza Type B (PCR) RSV RNA Qual (PCR) 08/17/20 08/17/20 08/17/20 14:40 14:45 14:54 WBC RBC Hgb Hct MCV MCH MCHC RDW Plt Count MPV Immature Gran % (Auto) Neut % (Auto) Lymph % (Auto) [place] % (Auto) Eos % (Auto) Baso % (Auto) Lymph # (Auto) [place] # (Auto) Eos # (Auto) Baso # (Auto) Abs Immat Gran (auto) Absolute Neuts (auto) Absolute Nucleated RBC Nucleated RBC % (auto) Smear Tech's Comments ESR VBG pH VBG pCO2 VBG pO2 VBG HCO3 VBG O2 Saturation VBG Base Excess Sodium Potassium Chloride Carbon Dioxide Anion Gap BUN Creatinine Estim Creat Clear Calc Estimated GFR POC Glucose 462 H* Random Glucose Calcium Phosphorus Magnesium Total Bilirubin AST ALT Alkaline Phosphatase Total Protein Albumin Urine Color Urine Appearance Urine pH Ur Specific [place] Urine Protein Urine Glucose (UA) Urine Ketones Urine Blood Urine Nitrite Ur Leukocyte Esterase Urine Opiates Screen Ur Barbiturates Screen Ur Phencyclidine Scrn Ur Amphetamines Screen U Benzodiazepines Scrn Urine Cocaine Screen U Marijuana (THC) Screen Coronavirus (PCR) NEGATIVE COVID-19 (BRENDA) Cancelled COVID-19 Clin Com Cancelled Hepatitis C Ab (EIA) HIV 1&2 Ab/P24 Ag 4thGn Influenza Type A (PCR) NEGATIVE Influenza Type B (PCR) NEGATIVE RSV RNA Qual (PCR) NEGATIVE 08/17/20 08/17/20 08/17/20 15:57 16:56 19:15 WBC RBC Hgb Hct MCV MCH MCHC RDW Plt Count MPV Immature Gran % (Auto) Neut % (Auto) Lymph % (Auto) [place] % (Auto) Eos % (Auto) Baso % (Auto) Lymph # (Auto) [place] # (Auto) Eos # (Auto) Baso # (Auto) Abs Immat Gran (auto) Absolute Neuts (auto) Absolute Nucleated RBC Nucleated RBC % (auto) Smear Tech's Comments ESR VBG pH VBG pCO2 VBG pO2 VBG HCO3 VBG O2 Saturation VBG Base Excess Sodium 163 H* Potassium 3.0 L Chloride 122 H Carbon Dioxide 25 Anion Gap 19 BUN 21 H Creatinine 1.15 Estim Creat Clear Calc 60.6 Estimated GFR 59 POC Glucose 242 H 197 H Random Glucose 384 H* Calcium 9.5 Phosphorus Magnesium Total Bilirubin AST ALT Alkaline Phosphatase Total Protein Albumin Urine Color Urine Appearance Urine pH Ur Specific [place] Urine Protein Urine Glucose (UA) Urine Ketones Urine Blood Urine Nitrite Ur Leukocyte Esterase Urine Opiates Screen Ur Barbiturates Screen Ur Phencyclidine Scrn Ur Amphetamines Screen U Benzodiazepines Scrn Urine Cocaine Screen U Marijuana (THC) Screen Coronavirus (PCR) COVID-19 (BRENDA) COVID-19 Clin Com Hepatitis C Ab (EIA) HIV 1&2 Ab/P24 Ag 4thGn Influenza Type A (PCR) Influenza Type B (PCR) RSV RNA Qual (PCR) 08/17/20 08/17/20 08/17/20 19:34 20:50 22:00 WBC RBC Hgb Hct MCV MCH MCHC RDW Plt Count MPV Immature Gran % (Auto) Neut % (Auto) Lymph % (Auto) [place] % (Auto) Eos % (Auto) Baso % (Auto) Lymph # (Auto) [place] # (Auto) Eos # (Auto) Baso # (Auto) Abs Immat Gran (auto) Absolute Neuts (auto) Absolute Nucleated RBC Nucleated RBC % (auto) Smear Tech's Comments ESR VBG pH VBG pCO2 VBG pO2 VBG HCO3 VBG O2 Saturation VBG Base Excess Sodium 163 H* Potassium 3.9 D Chloride 121 H Carbon Dioxide 33 H Anion Gap 13 BUN 21 H Creatinine 1.02 Estim Creat Clear Calc 68.3 Estimated GFR > 60 POC Glucose 155 H 145 H Random Glucose 194 H D Calcium 9.1 Phosphorus 4.5 Magnesium 2.6 Total Bilirubin AST ALT Alkaline Phosphatase Total Protein Albumin Urine Color Urine Appearance Urine pH Ur Specific [place] Urine Protein Urine Glucose (UA) Urine Ketones Urine Blood Urine Nitrite Ur Leukocyte Esterase Urine Opiates Screen Ur Barbiturates Screen Ur Phencyclidine Scrn Ur Amphetamines Screen U Benzodiazepines Scrn Urine Cocaine Screen U Marijuana (THC) Screen Coronavirus (PCR) COVID-19 (BRENDA) COVID-19 Clin Com Hepatitis C Ab (EIA) HIV 1&2 Ab/P24 Ag 4thGn Influenza Type A (PCR) Influenza Type B (PCR) RSV RNA Qual (PCR) 08/17/20 08/17/20 08/17/20 23:13 23:52 23:53 WBC RBC Hgb Hct MCV MCH MCHC RDW Plt Count MPV Immature Gran % (Auto) Neut % (Auto) Lymph % (Auto) [place] % (Auto) Eos % (Auto) Baso % (Auto) Lymph # (Auto) [place] # (Auto) Eos # (Auto) Baso # (Auto) Abs Immat Gran (auto) Absolute Neuts (auto) Absolute Nucleated RBC Nucleated RBC % (auto) Smear Tech's Comments ESR VBG pH VBG pCO2 VBG pO2 VBG HCO3 VBG O2 Saturation VBG Base Excess Sodium 160 H* Potassium 4.3 Chloride 119 H Carbon Dioxide 33 H Anion Gap 12 BUN 21 H Creatinine 1.12 Estim Creat Clear Calc 62.3 Estimated GFR > 60 POC Glucose 107 106 Random Glucose 102 D Calcium 8.3 L D Phosphorus Magnesium Total Bilirubin AST ALT Alkaline Phosphatase Total Protein Albumin Urine Color Urine Appearance Urine pH Ur Specific [place] Urine Protein Urine Glucose (UA) Urine Ketones Urine Blood Urine Nitrite Ur Leukocyte Esterase Urine Opiates Screen Ur Barbiturates Screen Ur Phencyclidine Scrn Ur Amphetamines Screen U Benzodiazepines Scrn Urine Cocaine Screen U Marijuana (THC) Screen Coronavirus (PCR) COVID-19 (BRENDA) COVID-19 Clin Com Hepatitis C Ab (EIA) HIV 1&2 Ab/P24 Ag 4thGn Influenza Type A (PCR) Influenza Type B (PCR) RSV RNA Qual (PCR) 08/18/20 08/18/20 08/18/20 01:11 01:57 02:48 WBC RBC Hgb Hct MCV MCH MCHC RDW Plt Count MPV Immature Gran % (Auto) Neut % (Auto) Lymph % (Auto) [place] % (Auto) Eos % (Auto) Baso % (Auto) Lymph # (Auto) [place] # (Auto) Eos # (Auto) Baso # (Auto) Abs Immat Gran (auto) Absolute Neuts (auto) Absolute Nucleated RBC Nucleated RBC % (auto) Smear Tech's Comments ESR VBG pH VBG pCO2 VBG pO2 VBG HCO3 VBG O2 Saturation VBG Base Excess Sodium Potassium Chloride Carbon Dioxide Anion Gap BUN Creatinine Estim Creat Clear Calc Estimated GFR POC Glucose 115 90 102 Random Glucose Calcium Phosphorus Magnesium Total Bilirubin AST ALT Alkaline Phosphatase Total Protein Albumin Urine Color Urine Appearance Urine pH Ur Specific [place] Urine Protein Urine Glucose (UA) Urine Ketones Urine Blood Urine Nitrite Ur Leukocyte Esterase Urine Opiates Screen Ur Barbiturates Screen Ur Phencyclidine Scrn Ur Amphetamines Screen U Benzodiazepines Scrn Urine Cocaine Screen U Marijuana (THC) Screen Coronavirus (PCR) COVID-19 (BRENDA) COVID-19 Clin Com Hepatitis C Ab (EIA) HIV 1&2 Ab/P24 Ag 4thGn Influenza Type A (PCR) Influenza Type B (PCR) RSV RNA Qual (PCR) 08/18/20 08/18/20 08/18/20 03:58 04:58 05:21 WBC 21.8 H RBC 3.42 L Hgb 9.7 L Hct 29.4 L D MCV 86.0 D MCH 28.4 MCHC 33.0 RDW 14.4 Plt Count 195 D MPV 10.1 Immature Gran % (Auto) 0.6 H Neut % (Auto) 73.9 H Lymph % (Auto) 19.2 L [place] % (Auto) 6.1 Eos % (Auto) 0.0 Baso % (Auto) 0.2 Lymph # (Auto) 4.2 [place] # (Auto) 1.3 H Eos # (Auto) 0.0 Baso # (Auto) 0.1 Abs Immat Gran (auto) 0.12 H Absolute Neuts (auto) 16.1 H Absolute Nucleated RBC 0.000 Nucleated RBC % (auto) 0.0 Smear Tech's Comments VERIFIED ESR VBG pH VBG pCO2 VBG pO2 VBG HCO3 VBG O2 Saturation VBG Base Excess Sodium Potassium Chloride Carbon Dioxide Anion Gap BUN Creatinine Estim Creat Clear Calc Estimated GFR POC Glucose 128 H 148 H Random Glucose Calcium Phosphorus Magnesium Total Bilirubin AST ALT Alkaline Phosphatase Total Protein Albumin Urine Color Urine Appearance Urine pH Ur Specific [place] Urine Protein Urine Glucose (UA) Urine Ketones Urine Blood Urine Nitrite Ur Leukocyte Esterase Urine Opiates Screen Ur Barbiturates Screen Ur Phencyclidine Scrn Ur Amphetamines Screen U Benzodiazepines Scrn Urine Cocaine Screen U Marijuana (THC) Screen Coronavirus (PCR) COVID-19 (BRENDA) COVID-19 Clin Com Hepatitis C Ab (EIA) HIV 1&2 Ab/P24 Ag 4thGn Influenza Type A (PCR) Influenza Type B (PCR) RSV RNA Qual (PCR) 08/18/20 08/18/20 08/18/20 05:21 07:29 08:43 WBC RBC Hgb Hct MCV MCH MCHC RDW Plt Count MPV Immature Gran % (Auto) Neut % (Auto) Lymph % (Auto) [place] % (Auto) Eos % (Auto) Baso % (Auto) Lymph # (Auto) [place] # (Auto) Eos # (Auto) Baso # (Auto) Abs Immat Gran (auto) Absolute Neuts (auto) Absolute Nucleated RBC Nucleated RBC % (auto) Smear Tech's Comments ESR VBG pH VBG pCO2 VBG pO2 VBG HCO3 VBG O2 Saturation VBG Base Excess Sodium 154 H Potassium 4.3 Chloride 114 H Carbon Dioxide 30 H Anion Gap 14 BUN 22 H Creatinine 1.34 Estim Creat Clear Calc 46.4 Estimated GFR 49 POC Glucose 210 H 140 H Random Glucose 161 H D Calcium 7.8 L D Phosphorus Magnesium Total Bilirubin 0.3 AST 20 ALT 22 Alkaline Phosphatase 119 H D Total Protein 5.3 L D Albumin 2.9 L D Urine Color Urine Appearance Urine pH Ur Specific [place] Urine Protein Urine Glucose (UA) Urine Ketones Urine Blood Urine Nitrite Ur Leukocyte Esterase Urine Opiates Screen Ur Barbiturates Screen Ur Phencyclidine Scrn Ur Amphetamines Screen U Benzodiazepines Scrn Urine Cocaine Screen U Marijuana (THC) Screen Coronavirus (PCR) COVID-19 (BRENDA) COVID-19 Clin Com Hepatitis C Ab (EIA) HIV 1&2 Ab/P24 Ag 4thGn Influenza Type A (PCR) Influenza Type B (PCR) RSV RNA Qual (PCR) 08/18/20 08/18/20 08/18/20 10:12 11:07 11:07 WBC RBC Hgb Hct MCV MCH MCHC RDW Plt Count MPV Immature Gran % (Auto) Neut % (Auto) Lymph % (Auto) [place] % (Auto) Eos % (Auto) Baso % (Auto) Lymph # (Auto) [place] # (Auto) Eos # (Auto) Baso # (Auto) Abs Immat Gran (auto) Absolute Neuts (auto) Absolute Nucleated RBC Nucleated RBC % (auto) Smear Tech's Comments ESR 18 VBG pH VBG pCO2 VBG pO2 VBG HCO3 VBG O2 Saturation VBG Base Excess Sodium 147 H Potassium 4.4 Chloride 110 H Carbon Dioxide 30 H Anion Gap 11 L BUN 23 H Creatinine 1.71 H Estim Creat Clear Calc 36.4 Estimated GFR 37 POC Glucose 136 H Random Glucose 162 H Calcium 8.2 L Phosphorus Magnesium Total Bilirubin AST ALT Alkaline Phosphatase Total Protein Albumin Urine Color Urine Appearance Urine pH Ur Specific [place] Urine Protein Urine Glucose (UA) Urine Ketones Urine Blood Urine Nitrite Ur Leukocyte Esterase Urine Opiates Screen Ur Barbiturates Screen Ur Phencyclidine Scrn Ur Amphetamines Screen U Benzodiazepines Scrn Urine Cocaine Screen U Marijuana (THC) Screen Coronavirus (PCR) COVID-19 (BRENDA) COVID-19 Clin Com Hepatitis C Ab (EIA) HIV 1&2 Ab/P24 Ag 4thGn Influenza Type A (PCR) Influenza Type B (PCR) RSV RNA Qual (PCR) 08/18/20 08/18/20 08/18/20 11:17 12:05 16:42 WBC RBC Hgb Hct MCV MCH MCHC RDW Plt Count MPV Immature Gran % (Auto) Neut % (Auto) Lymph % (Auto) [place] % (Auto) Eos % (Auto) Baso % (Auto) Lymph # (Auto) [place] # (Auto) Eos # (Auto) Baso # (Auto) Abs Immat Gran (auto) Absolute Neuts (auto) Absolute Nucleated RBC Nucleated RBC % (auto) Smear Tech's Comments ESR VBG pH VBG pCO2 VBG pO2 VBG HCO3 VBG O2 Saturation VBG Base Excess Sodium 143 Potassium 5.3 H D Chloride 109 H Carbon Dioxide 24 Anion Gap 15 BUN 23 H Creatinine 2.09 H Estim Creat Clear Calc 29.8 Estimated GFR 30 POC Glucose 152 H 202 H Random Glucose 421 H* Calcium 7.8 L Phosphorus Magnesium Total Bilirubin AST ALT Alkaline Phosphatase Total Protein Albumin Urine Color Urine Appearance Urine pH Ur Specific [place] Urine Protein Urine Glucose (UA) Urine Ketones Urine Blood Urine Nitrite Ur Leukocyte Esterase Urine Opiates Screen Ur Barbiturates Screen Ur Phencyclidine Scrn Ur Amphetamines Screen U Benzodiazepines Scrn Urine Cocaine Screen U Marijuana (THC) Screen Coronavirus (PCR) COVID-19 (BRENDA) COVID-19 Clin Com Hepatitis C Ab (EIA) HIV 1&2 Ab/P24 Ag 4thGn Influenza Type A (PCR) Influenza Type B (PCR) RSV RNA Qual (PCR) 08/18/20 08/18/20 08/18/20 16:42 16:42 17:40 WBC RBC Hgb Hct MCV MCH MCHC RDW Plt Count MPV Immature Gran % (Auto) Neut % (Auto) Lymph % (Auto) [place] % (Auto) Eos % (Auto) Baso % (Auto) Lymph # (Auto) [place] # (Auto) Eos # (Auto) Baso # (Auto) Abs Immat Gran (auto) Absolute Neuts (auto) Absolute Nucleated RBC Nucleated RBC % (auto) Smear Tech's Comments ESR VBG pH VBG pCO2 VBG pO2 VBG HCO3 VBG O2 Saturation VBG Base Excess Sodium Potassium Chloride Carbon Dioxide Anion Gap BUN Creatinine Estim Creat Clear Calc Estimated GFR POC Glucose 411 H* Random Glucose Calcium Phosphorus Magnesium Total Bilirubin AST ALT Alkaline Phosphatase Total Protein Albumin Urine Color Urine Appearance Urine pH Ur Specific [place] Urine Protein Urine Glucose (UA) Urine Ketones Urine Blood Urine Nitrite Ur Leukocyte Esterase Urine Opiates Screen Ur Barbiturates Screen Ur Phencyclidine Scrn Ur Amphetamines Screen U Benzodiazepines Scrn Urine Cocaine Screen U Marijuana (THC) Screen Coronavirus (PCR) COVID-19 (BRENDA) COVID-19 Clin Com Hepatitis C Ab (EIA) Reactive H HIV 1&2 Ab/P24 Ag 4thGn Nonreactive Influenza Type A (PCR) Influenza Type B (PCR) RSV RNA Qual (PCR) 08/18/20 08/18/20 08/18/20 21:12 21:42 21:46 WBC RBC Hgb Hct MCV MCH MCHC RDW Plt Count MPV Immature Gran % (Auto) Neut % (Auto) Lymph % (Auto) [place] % (Auto) Eos % (Auto) Baso % (Auto) Lymph # (Auto) [place] # (Auto) Eos # (Auto) Baso # (Auto) Abs Immat Gran (auto) Absolute Neuts (auto) Absolute Nucleated RBC Nucleated RBC % (auto) Smear Tech's Comments ESR VBG pH 7.53 H VBG pCO2 29 VBG pO2 147 VBG HCO3 24 VBG O2 Saturation 100.0 VBG Base Excess 2.8 Sodium 143 Potassium 4.9 Chloride 110 H Carbon Dioxide 24 Anion Gap 14 BUN 28 H Creatinine 2.27 H Estim Creat Clear Calc 27.4 Estimated GFR 27 POC Glucose 364 H* Random Glucose 470 H* Calcium 8.0 L Phosphorus Magnesium Total Bilirubin AST ALT Alkaline Phosphatase Total Protein Albumin Urine Color Urine Appearance Urine pH Ur Specific [place] Urine Protein Urine Glucose (UA) Urine Ketones Urine Blood Urine Nitrite Ur Leukocyte Esterase Urine Opiates Screen Ur Barbiturates Screen Ur Phencyclidine Scrn Ur Amphetamines Screen U Benzodiazepines Scrn Urine Cocaine Screen U Marijuana (THC) Screen Coronavirus (PCR) COVID-19 (BRENDA) COVID-19 Clin Com Hepatitis C Ab (EIA) HIV 1&2 Ab/P24 Ag 4thGn Influenza Type A (PCR) Influenza Type B (PCR) RSV RNA Qual (PCR) 08/18/20 08/19/20 08/19/20 22:27 02:12 03:17 WBC RBC Hgb Hct MCV MCH MCHC RDW Plt Count MPV Immature Gran % (Auto) Neut % (Auto) Lymph % (Auto) [place] % (Auto) Eos % (Auto) Baso % (Auto) Lymph # (Auto) [place] # (Auto) Eos # (Auto) Baso # (Auto) Abs Immat Gran (auto) Absolute Neuts (auto) Absolute Nucleated RBC Nucleated RBC % (auto) Smear Tech's Comments ESR VBG pH VBG pCO2 VBG pO2 VBG HCO3 VBG O2 Saturation VBG Base Excess Sodium Potassium Chloride Carbon Dioxide Anion Gap BUN Creatinine Estim Creat Clear Calc Estimated GFR POC Glucose 409 H* 134 H 108 Random Glucose Calcium Phosphorus Magnesium Total Bilirubin AST ALT Alkaline Phosphatase Total Protein Albumin Urine Color Urine Appearance Urine pH Ur Specific [place] Urine Protein Urine Glucose (UA) Urine Ketones Urine Blood Urine Nitrite Ur Leukocyte Esterase Urine Opiates Screen Ur Barbiturates Screen Ur Phencyclidine Scrn Ur Amphetamines Screen U Benzodiazepines Scrn Urine Cocaine Screen U Marijuana (THC) Screen Coronavirus (PCR) COVID-19 (BRENDA) COVID-19 Clin Com Hepatitis C Ab (EIA) HIV 1&2 Ab/P24 Ag 4thGn Influenza Type A (PCR) Influenza Type B (PCR) RSV RNA Qual (PCR) 08/19/20 08/19/20 08/19/20 05:25 05:56 06:00 WBC 15.5 H RBC 3.90 L Hgb 11.2 L Hct 34.4 L MCV 88.2 MCH 28.7 MCHC 32.6 RDW 15.2 Plt Count TNP MPV Not Reportable Immature Gran % (Auto) 0.6 H Neut % (Auto) 66.8 Lymph % (Auto) 25.6 [place] % (Auto) 6.5 Eos % (Auto) 0.1 Baso % (Auto) 0.4 Lymph # (Auto) 4.0 [place] # (Auto) 1.0 Eos # (Auto) 0.0 Baso # (Auto) 0.1 Abs Immat Gran (auto) 0.10 H Absolute Neuts (auto) 10.4 H Absolute Nucleated RBC 0.030 H Nucleated RBC % (auto) 0.2 Smear Tech's Comments VERIFIED ESR VBG pH VBG pCO2 VBG pO2 VBG HCO3 VBG O2 Saturation VBG Base Excess Sodium Potassium Chloride Carbon Dioxide Anion Gap BUN Creatinine Estim Creat Clear Calc Estimated GFR POC Glucose 68 179 H Random Glucose Calcium Phosphorus Magnesium Total Bilirubin AST ALT Alkaline Phosphatase Total Protein Albumin Urine Color Urine Appearance Urine pH Ur Specific [place] Urine Protein Urine Glucose (UA) Urine Ketones Urine Blood Urine Nitrite Ur Leukocyte Esterase Urine Opiates Screen Ur Barbiturates Screen Ur Phencyclidine Scrn Ur Amphetamines Screen U Benzodiazepines Scrn Urine Cocaine Screen U Marijuana (THC) Screen Coronavirus (PCR) COVID-19 (BRENDA) COVID-19 Clin Com Hepatitis C Ab (EIA) HIV 1&2 Ab/P24 Ag 4thGn Influenza Type A (PCR) Influenza Type B (PCR) RSV RNA Qual (PCR) 08/19/20 08/19/20 08/19/20 06:00 06:44 07:13 WBC RBC Hgb Hct MCV MCH MCHC RDW Plt Count MPV Immature Gran % (Auto) Neut % (Auto) Lymph % (Auto) [place] % (Auto) Eos % (Auto) Baso % (Auto) Lymph # (Auto) [place] # (Auto) Eos # (Auto) Baso # (Auto) Abs Immat Gran (auto) Absolute Neuts (auto) Absolute Nucleated RBC Nucleated RBC % (auto) Smear Tech's Comments ESR VBG pH VBG pCO2 VBG pO2 VBG HCO3 VBG O2 Saturation VBG Base Excess Sodium 148 H Potassium 5.2 H Chloride 116 H Carbon Dioxide 21 L Anion Gap 16 BUN 26 H Creatinine 1.99 H Estim Creat Clear Calc 31.3 Estimated GFR 31 POC Glucose 152 H 121 H Random Glucose 215 H D Calcium 8.0 L Phosphorus 4.7 H Magnesium 2.0 Total Bilirubin AST ALT Alkaline Phosphatase Total Protein Albumin Urine Color Urine Appearance Urine pH Ur Specific [place] Urine Protein Urine Glucose (UA) Urine Ketones Urine Blood Urine Nitrite Ur Leukocyte Esterase Urine Opiates Screen Ur Barbiturates Screen Ur Phencyclidine Scrn Ur Amphetamines Screen U Benzodiazepines Scrn Urine Cocaine Screen U Marijuana (THC) Screen Coronavirus (PCR) COVID-19 (BRENDA) COVID-19 Clin Com Hepatitis C Ab (EIA) HIV 1&2 Ab/P24 Ag 4thGn Influenza Type A (PCR) Influenza Type B (PCR) RSV RNA Qual (PCR) 08/19/20 07:49 WBC RBC Hgb Hct MCV MCH MCHC RDW Plt Count MPV Immature Gran % (Auto) Neut % (Auto) Lymph % (Auto) [place] % (Auto) Eos % (Auto) Baso % (Auto) Lymph # (Auto) [place] # (Auto) Eos # (Auto) Baso # (Auto) Abs Immat Gran (auto) Absolute Neuts (auto) Absolute Nucleated RBC Nucleated RBC % (auto) Smear Tech's Comments ESR VBG pH 7.39 VBG pCO2 37 VBG pO2 46 VBG HCO3 23 VBG O2 Saturation 68.0 VBG Base Excess -1.3 Sodium Potassium Chloride Carbon Dioxide Anion Gap BUN Creatinine Estim Creat Clear Calc Estimated GFR POC Glucose Random Glucose Calcium Phosphorus Magnesium Total Bilirubin AST ALT Alkaline Phosphatase Total Protein Albumin Urine Color Urine Appearance Urine pH Ur Specific [place] Urine Protein Urine Glucose (UA) Urine Ketones Urine Blood Urine Nitrite Ur Leukocyte Esterase Urine Opiates Screen Ur Barbiturates Screen Ur Phencyclidine Scrn Ur Amphetamines Screen U Benzodiazepines Scrn Urine Cocaine Screen U Marijuana (THC) Screen Coronavirus (PCR) COVID-19 (BRENDA) COVID-19 Clin Com Hepatitis C Ab (EIA) HIV 1&2 Ab/P24 Ag 4thGn Influenza Type A (PCR) Influenza Type B (PCR) RSV RNA Qual (PCR) Imaging Radiology Impressions: ITS Impressions Head CT 08/17/20 21:10 IMPRESSION: No acute intracranial pathology. Chest X-Ray 08/18/20 08:10 IMPRESSION: Unremarkable examination. Mental Status Exam Mental Status Exam Narrative: Appearance: thin, malnourish, woman, poor dentition, with periods of sedation but able to stay awake Behavior: superficially cooperative, irritable at times Psychomotor: intermitent agitation as heroin cravings increase Speech: clear, normal rate/rhythm/volume, minimally spontaneous TP: tangential TC: no signs of psychosis, looking to be discharged, craving substances Mood: tired Affect:intermittent sedation SI:denies HI:denies AH/VH:no signs Delusions:none Insight/judgment:poor x 2. Memory/cog: alert, oriented x 3. Medications Medications Current Medications Generic Name Dose Route Start Last Admin Trade Name Freq PRN Reason Stop Dose Admin Doxycycline Hyclate 100 mg/ 250 mls @ 166.67 mls/hr 08/18/20 16:15 08/19/20 06:56 Sodium Chloride IV Infused Q12H MIKKI Infusion Vancomycin HCl 1,000 mg/ 270 mls @ 270 mls/hr 08/19/20 11:00 08/19/20 10:27 Sodium Chloride IV 270 mls/hr Q24H MIKKI Administration Insulin Glargine 20 unit 08/19/20 08:00 08/19/20 07:16 Insulin Glargine,Hum.Rec.Anlog 100 Unit/Ml 10 Ml Vial SUBCUT 20 unit BID@0800,1500 MIKKI Administration Insulin Human Lispro 0 unit 08/18/20 21:00 08/19/20 07:16 Insulin Lispro 100 Unit/Ml 3 Ml Vial SUBCUT Not Given [facility] Protocol Lorazepam 1 mg 08/18/20 10:40 08/19/20 07:06 Lorazepam 2 Mg/Ml Vial IVPUSH 1 mg Q4H PRN Administration anxiety/restlessness Pharmacy Consult 1 each 08/17/20 10:01 Consult Rx Perform Med Rec MISCELLANE ONCE PRN Consult order Pharmacy Consult 1 each 08/18/20 16:05 Consult Rx Vancomycin Dosing MISCELLANE DAILY PRN Consult order Sodium Chloride 3 ml 08/18/20 16:00 08/19/20 07:06 0.9 % Sodium Chloride Flush 3 Ml Syringe IVFLUSH 3 ml QSHIFT MIKKI Administration Allergies Allergies Allergy/AdvReac Type Severity Reaction Status Date / Time No Known Allergies Allergy Verified 07/22/20 16:27 Assessment & Plan Assessment & Plan (1) Opioid use disorder, severe, dependence: Status: Acute Code(s): F11.20 - Opioid dependence, uncomplicated Recommendations: Ms. Morgan is a 24 year-old woman with hx of insulin-dependent DM, opioid dependence, cocaine dependence who has presented at least 5 times since 07/2020 to ED with complications of untreated DM, mainly DKA. This time pt was also found to have endocarditis with UGI vegetation on the triscupid valve apparatus >3cm. Pt once again asking to leave AMA. This junior copywriter asked to assess capacity. Ms. Morgan is able to show understanding as to the severity of current condition as well as recommended treatment. She understands that consequence include sudden . However, pt admits to craving heroin/opioids and cravings affecting her ability to accept treatment. Pt although poor insight/judgment, does show at this moment capacity to make medical decisions, even if these are poor. There is no acute psychiatric condition for which she needs inpatient level of care even against her will. She does not show signs of psychosis. She denies SI/HI. Although, does admit that due to her substance use she is putting herself at great risk of imminent harm to self. She is candidate for a Section 35 (involuntary substance use treatment)- in that her addiction has taken control of her behaviors, ability to care for self (not able to manage her medical condition DM, poor dentition) and she is at imminent risks of harm to self due to her addiction. However, under a section 35, hospital may not retain patient to continue medical treatment given that she has been found to have capacity to make this decision. (2) Cocaine use disorder, moderate, dependence: Status: Acute Code(s): F14.20 - Cocaine dependence, uncomplicated Greater than 50% of the session was spent on counseling and/or coordination of care
[2020-08-19 12:24] LABS: Glucose, Whole Blood 171 mg/dL (60-115)
[2020-08-19] MEDS: LORazepam 2 MG/ML VIAL IVPUSH (12:38)
[2020-08-19] MEDS: Insulin Lispro 100 UNIT/ML 3 ML VIAL SUBCUT (12:43)
--- NOTE | 2020-08-19 15:07 | PC.NURSE ---
Around 12:30 patient became restless and agitated. Patient displaying demanding behavior, yelling out, throwing items in the room, and pulling off all her monitoring equipment. Patient demanding to leave AMA. Patient agreeable to taking prn ativan. Ativan administered and patient became less restless temporarily. This RN messaged psychological science professor Elizabet Rudd to reassess patient. BUSINESS SYSTEMS DEVELOPER at beside around 1330 for second evaluation as patient appeared drowsy for the first evaluation earlier in the morning. Patient agreeable to speaking to with BUSINESS SYSTEMS DEVELOPER. BUSINESS SYSTEMS DEVELOPER determined patient is currently capable of decision making. at beside with BUSINESS SYSTEMS DEVELOPER to discuss patients health status/complications including endocarditis, possible valve surgery, and usp antibiotics. Patient able to verbalize understanding of health status/complications. MD and BUSINESS SYSTEMS DEVELOPER also both described benefits of staying in the hospital including treatment for substance withdraw, antibiotics, and monitoring. Patient verbalized understanding the benefits of receiving life saving treatment and option to receive methadone. MD and BUSINESS SYSTEMS DEVELOPER also explained risks of leaving AMA in detail including risk of sudden . Patient verbalized understanding risks including . Patient demanding to leave AMA. This RN notified MD, BUSINESS SYSTEMS DEVELOPER, and assistant professor of nursing. Patient also under 's care. This RN notified of above situation. Dr. Johns at bedside to inform patient of risks of leaving AMA. Patient able to verbalize understanding and still demanding to leave AMA. AMA form signed by patient. This RN removed peripheral 20G IV in left upper arm and duff catheter. Assisted patient with getting dressed in her clothes. Nurses aid transported patient to the [facility] via wheelchair around 1500. Incident report form completed.
--- NOTE | 2020-08-19 15:32 | PM.DS ---
DS: Providers Provider Date of Service: 08/19/20 Date of admission: 08/17/20 11:44 Primary care physician: Unknown Physician Consults: 08/18/20 10:16 Consult to Infectious Diseases Stat Consulting Provider: Gricelda Rivero Reason for consultation: Vegetation on ECHO Has provider been notified: Yes 08/18/20 10:28 Consult to Nephrology Routine Consulting Provider: Petar Nicolas Reason for consultation: acute renal insufficiency Has provider been notified: Yes 08/19/20 10:04 Consult to Psychiatry Routine Consulting Provider: Joshua Hennessy Reason for consultation: questionable capacity/executive functioning DS: Diagnosis Discharge Diagnosis (1) Endocarditis: Status: Acute Problem details: probable MRSA or MSSA Possible bartonella (2) Altered mental status associated with intoxication: Status: Acute (3) Acute renal failure: Status: Acute (4) Diabetic ketoacidosis: Status: Acute (5) Polysubstance abuse: Status: Acute (6) Dehydration with hypernatremia: Status: Acute DS: Medications Discharge Medications Home Medications: Home Medications Medication Instructions Recorded Confirmed insulin regular human [Novolin R 1 sliding scale dose SUBCUT 08/05/20 08/17/20 Regular U-100 Insuln] USEASDIRECTD DS: Summary Hospital Course Hospital Course: Originally admitted from being found on the street unconscious barely arousable clearly encephalopathic with agitated delirium found to be diabetic ketoacidosis with hypotension dehydration and hypernatremia and urine toxicology positive for cocaine and she had visible track castelan on her arms skin covered with what looked like possible scabies and overwhelmingly but poor dentition with no oral hygiene Treated with aggressive hydration and IV insulin and hypernatremia slowly resolved and over 24 hours there was slow resolution of her encephalopathy and we discovered a UGI vegetation on the tricuspid valve apparatus certainly greater than 3 cm with a large mobile component taking up more than 50% of the volume of the right atrium and started empiric antibiotics that to treat her for endocarditis with 2 potential sources namely the oral cavity as well as the skin from her track castelan and possibly even from the body lice As she awoke with complete correction of both the hypernatremia as well as the diabetic ketoacidosis component she immediately began to insist on leaving the hospital against medical advice Myself and the nurse and then ultimately psychiatry came in and spent an extensive amount of time throughout the morning and into the afternoon with her trying to assess her executive function her cognitive capability and she was assessed as being able to make her own decision and therefore could not be restrained at 1 point wean we had offered start a methadone program and she initially agreed and within 15 minutes 20 minutes she insisted again on signing out at which point the IV was discontinued and we had explained to her all of us that she has high risk of sudden the no certainly veno a duct of or just getting sick the no to the point that might be a reversible room and the and that treatment needed to be continued here and no matter how much we heart on these issues she insisted on leaving obviously with the overarching issue here being her need to get high Status at Discharge Cognitive/behavioral status at discharge: Myself and nursing and Psychiatry all felt that although her decisions were poor she had the cognitive ability to make her own decision and therefore she could not be restrained Functional status at discharge: independent ambulation Overall status at discharge: patient is progressing back to baseline Time Spent with Patient Time attestation: Total time spent providing and/or coordinating discharge services: Total time spent certainly exceeded 2 hours Discharge coordination time: Greater than 30 minutes Physical Exam Vital Signs: Vital Signs: Last Vital Signs Temp 98.4 F 08/19/20 10:50 Pulse 79 08/19/20 10:50 Resp 23 H 08/19/20 10:50 BP 113/66 08/19/20 10:50 Pulse Ox 100 08/19/20 10:50 Body Mass Index 18.0 Although lethargic she was awake and conversational and this was witnessed by all 3 of us Skin covered in scabs clearly dirty poor dentition but no focal neurologic issues Cardiac exam with neck veins flat carotid upstrokes adequate normal sinus rhythm no acute ST-T changes no gallops no murmurs Chest was clear with no adventitious sounds Abdomen benign no organomegaly No livedo no acrocyanosis no cellulitis DS: Data Data Completed and Pending Completed studies during hospitalization [Text1]: Procedures Insertion of Infusion Device into Superior Vena Cava, Percutaneous Approach (08/06/20) Labs on day of discharge: Laboratory Results - last 24 hr 08/17/20 08/18/20 08/18/20 14:18 16:42 16:42 WBC RBC Hgb Hct MCV MCH MCHC RDW Plt Count MPV Immature Gran % (Auto) Neut % (Auto) Lymph % (Auto) [place] % (Auto) Eos % (Auto) Baso % (Auto) Lymph # (Auto) [place] # (Auto) Eos # (Auto) Baso # (Auto) Abs Immat Gran (auto) Absolute Neuts (auto) Absolute Nucleated RBC Nucleated RBC % (auto) Smear Tech's Comments VBG pH VBG pCO2 VBG pO2 VBG HCO3 VBG O2 Saturation VBG Base Excess Sodium 143 Potassium 5.3 H D Chloride 109 H Carbon Dioxide 24 Anion Gap 15 BUN 23 H Creatinine 2.09 H Estim Creat Clear Calc 29.8 Estimated GFR 30 POC Glucose 511 H* Random Glucose 421 H* Calcium 7.8 L Phosphorus Magnesium Hepatitis C Ab (EIA) HIV 1&2 Ab/P24 Ag 4thGn Nonreactive 08/18/20 08/18/20 08/18/20 16:42 17:40 21:12 WBC RBC Hgb Hct MCV MCH MCHC RDW Plt Count MPV Immature Gran % (Auto) Neut % (Auto) Lymph % (Auto) [place] % (Auto) Eos % (Auto) Baso % (Auto) Lymph # (Auto) [place] # (Auto) Eos # (Auto) Baso # (Auto) Abs Immat Gran (auto) Absolute Neuts (auto) Absolute Nucleated RBC Nucleated RBC % (auto) Smear Tech's Comments VBG pH VBG pCO2 VBG pO2 VBG HCO3 VBG O2 Saturation VBG Base Excess Sodium Potassium Chloride Carbon Dioxide Anion Gap BUN Creatinine Estim Creat Clear Calc Estimated GFR POC Glucose 411 H* 364 H* Random Glucose Calcium Phosphorus Magnesium Hepatitis C Ab (EIA) Reactive H HIV 1&2 Ab/P24 Ag 4thGn 08/18/20 08/18/20 08/18/20 21:42 21:46 22:27 WBC RBC Hgb Hct MCV MCH MCHC RDW Plt Count MPV Immature Gran % (Auto) Neut % (Auto) Lymph % (Auto) [place] % (Auto) Eos % (Auto) Baso % (Auto) Lymph # (Auto) [place] # (Auto) Eos # (Auto) Baso # (Auto) Abs Immat Gran (auto) Absolute Neuts (auto) Absolute Nucleated RBC Nucleated RBC % (auto) Smear Tech's Comments VBG pH 7.53 H VBG pCO2 29 VBG pO2 147 VBG HCO3 24 VBG O2 Saturation 100.0 VBG Base Excess 2.8 Sodium 143 Potassium 4.9 Chloride 110 H Carbon Dioxide 24 Anion Gap 14 BUN 28 H Creatinine 2.27 H Estim Creat Clear Calc 27.4 Estimated GFR 27 POC Glucose 409 H* Random Glucose 470 H* Calcium 8.0 L Phosphorus Magnesium Hepatitis C Ab (EIA) HIV 1&2 Ab/P24 Ag 4thGn 08/19/20 08/19/20 08/19/20 02:12 03:17 05:25 WBC RBC Hgb Hct MCV MCH MCHC RDW Plt Count MPV Immature Gran % (Auto) Neut % (Auto) Lymph % (Auto) [place] % (Auto) Eos % (Auto) Baso % (Auto) Lymph # (Auto) [place] # (Auto) Eos # (Auto) Baso # (Auto) Abs Immat Gran (auto) Absolute Neuts (auto) Absolute Nucleated RBC Nucleated RBC % (auto) Smear Tech's Comments VBG pH VBG pCO2 VBG pO2 VBG HCO3 VBG O2 Saturation VBG Base Excess Sodium Potassium Chloride Carbon Dioxide Anion Gap BUN Creatinine Estim Creat Clear Calc Estimated GFR POC Glucose 134 H 108 68 Random Glucose Calcium Phosphorus Magnesium Hepatitis C Ab (EIA) HIV 1&2 Ab/P24 Ag 4thGn 08/19/20 08/19/20 08/19/20 05:56 06:00 06:00 WBC 15.5 H RBC 3.90 L Hgb 11.2 L Hct 34.4 L MCV 88.2 MCH 28.7 MCHC 32.6 RDW 15.2 Plt Count TNP MPV Not Reportable Immature Gran % (Auto) 0.6 H Neut % (Auto) 66.8 Lymph % (Auto) 25.6 [place] % (Auto) 6.5 Eos % (Auto) 0.1 Baso % (Auto) 0.4 Lymph # (Auto) 4.0 [place] # (Auto) 1.0 Eos # (Auto) 0.0 Baso # (Auto) 0.1 Abs Immat Gran (auto) 0.10 H Absolute Neuts (auto) 10.4 H Absolute Nucleated RBC 0.030 H Nucleated RBC % (auto) 0.2 Smear Tech's Comments VERIFIED VBG pH VBG pCO2 VBG pO2 VBG HCO3 VBG O2 Saturation VBG Base Excess Sodium 148 H Potassium 5.2 H Chloride 116 H Carbon Dioxide 21 L Anion Gap 16 BUN 26 H Creatinine 1.99 H Estim Creat Clear Calc 31.3 Estimated GFR 31 POC Glucose 179 H Random Glucose 215 H D Calcium 8.0 L Phosphorus 4.7 H Magnesium 2.0 Hepatitis C Ab (EIA) HIV 1&2 Ab/P24 Ag 4thGn 08/19/20 08/19/20 08/19/20 06:44 07:13 07:49 WBC RBC Hgb Hct MCV MCH MCHC RDW Plt Count MPV Immature Gran % (Auto) Neut % (Auto) Lymph % (Auto) [place] % (Auto) Eos % (Auto) Baso % (Auto) Lymph # (Auto) [place] # (Auto) Eos # (Auto) Baso # (Auto) Abs Immat Gran (auto) Absolute Neuts (auto) Absolute Nucleated RBC Nucleated RBC % (auto) Smear Tech's Comments VBG pH 7.39 VBG pCO2 37 VBG pO2 46 VBG HCO3 23 VBG O2 Saturation 68.0 VBG Base Excess -1.3 Sodium Potassium Chloride Carbon Dioxide Anion Gap BUN Creatinine Estim Creat Clear Calc Estimated GFR POC Glucose 152 H 121 H Random Glucose Calcium Phosphorus Magnesium Hepatitis C Ab (EIA) HIV 1&2 Ab/P24 Ag 4thGn 08/19/20 12:20 WBC RBC Hgb Hct MCV MCH MCHC RDW Plt Count MPV Immature Gran % (Auto) Neut % (Auto) Lymph % (Auto) [place] % (Auto) Eos % (Auto) Baso % (Auto) Lymph # (Auto) [place] # (Auto) Eos # (Auto) Baso # (Auto) Abs Immat Gran (auto) Absolute Neuts (auto) Absolute Nucleated RBC Nucleated RBC % (auto) Smear Tech's Comments VBG pH VBG pCO2 VBG pO2 VBG HCO3 VBG O2 Saturation VBG Base Excess Sodium Potassium Chloride Carbon Dioxide Anion Gap BUN Creatinine Estim Creat Clear Calc Estimated GFR POC Glucose 171 H Random Glucose Calcium Phosphorus Magnesium Hepatitis C Ab (EIA) HIV 1&2 Ab/P24 Ag 4thGn Discharge Plan Discharge Anticipated Discharge Date/Time: 08/19/20 15:41 Patient Disposition: Left Against Medical Advice Discharge Diagnosis: 1. Diabetic ketoacidosis 2. Hypernatremia and dehydration 3. Acute encephalopathy 4. Cocaine intoxication 5. IV polysubstance abuse 6. Bacterial endocarditis Referrals: Physician,Unknown [Primary Care Provider] - 1 Week Discharge Medications: No Action Novolin R Regular U-100 Insuln 100 unit/mL Solution 1 sliding scale dose SUBCUT USEASDIRECTD RF: 0 Discharge Orders: Discharge Order (Routine); Ordered 08/19/20 Ordered By: Narciso Cuellar Care Plan Goals: We literally bed her to follow our plan which was to initiate IV antibiotics and then eventually oral for a total of 6 weeks with eventual cardiothoracic surgical consult and probable transesophageal echo to assess the other valves and to begin a methadone program all of which was refused at this point Health Concerns: Active endocarditis with a huge vegetation with considerable risk for prolapsing and ball valving the tricuspid valve or embolizing or at the very least creating sepsis Plan of Treatment: No plan at this point unless she makes it back to the hospital Assessment: Assessed along with Psychiatry and found capable of making decisions however poor they maybe and we were unable to restrain her despite our best effort
== END 2020-08-19 15:00 | disposition left against medical advice (07) | DRG 200 ==
LOC: HO.ED 11:57 → HO.EDOVER 12:11 → HO.ICU 12:25
PROVIDERS: Internal Medicine; Internal Medicine Cardiovascular Disease; Physician Assistant; Physician Assistant Medical; Admitting Provider Anesthesiology; Emergency Provider Emergency Medicine; Visit Provider Internal Medicine
DX: I07.9 Rheumatic tricuspid valve disease, unspecified (principal); E11.10 Type 2 diabetes mellitus with ketoacidosis without coma; N17.9 Acute kidney failure, unspecified; E87.0 Hyperosmolality and hypernatremia; L02.11 Cutaneous abscess of neck; F14.20 Cocaine dependence, uncomplicated; F11.20 Opioid dependence, uncomplicated; E86.0 Dehydration; F19.129 Other psychoactive substance abuse with intoxication, unspecified; F17.210 Nicotine dependence, cigarettes, uncomplicated; Z20.822 Contact with and (suspected) exposure to COVID-19; Z59.0 Homelessness; Z71.6 Tobacco abuse counseling; Z79.4 Long term (current) use of insulin
CPT/HCPCS: 0241U; 36415; 70450; 71045; 80048; 80053; 80076; 80307; 81003; 82009; 82040; 82947; 83735; 84100; 84702; 85025; 85652; 86803; 87071; 87147; 87205; 87389; 87635; 93005; 93306; 96372; 96374; 99285; 99291; J2060; J2543; J3370

== ENCOUNTER 2020-09-11 12:26 | Inpatient (IN) | payer MEDICAID, SELFPAY ==
[2020-09-11] VITALS (12 sets, daily range): BP systolic 101–138; BP diastolic 46–87; PULSE 76–135; RESP 15–20; TEMP 36.6–37.1; O2SAT 94–100; BMI 18.9; BMI 18.5
--- NOTE | ~2020-09-11 | CT_ITS ---
EXAMINATION: CT CHEST, ABDOMEN AND PELVIS WITHOUT CONTRAST. CLINICAL INFORMATION: Elevated white count and LFTs. COMPARISON: None TECHNIQUE: 5 mm thin axial and reformatted 3 mm thin sagittal and coronal images of chest, abdomen pelvis were obtained without contrast. FINDINGS: Lack of IV contrast the cervix CT chest, abdomen and pelvis evaluation. Chest: The lungs are well-expanded with a small cavitary lesion right lower lobe superior segment adjacent to the posterior pleura measuring 1 cm. This may represent small liquefied consolidation rest of lungs are clear. No mass or groundglass density seen. Central trachea and the bronchi widely patent. Heart size and the great vessels are normal caliber. Thyroid lobes are symmetrical and normal. No pericardial effusion seen. There is no pleural effusion or pleural thickening. The chest wall appears unremarkable. Bone windows reveal no lytic or sclerotic process seen. Abdomen and pelvis: Visualized liver, spleen and pancreas are grossly unremarkable. No radiopaque gallstones seen. Adrenal glands are not visualized well due to lack of IV contrast and adipose tissue. Both kidneys are normal size, shape and position. No radiopaque renal calculi seen. The abdominal aorta is normal caliber. There is scattered stool and gas seen throughout the colon without distention. Imaging through the pelvis reveals a distended urinary bladder. There is metallic IUD in the endometrial canal. No free fluid. No pelvic lymph nodes seen. Bone windows reveal no gross bony abnormality. CT/CT abdomen pelvis wo con IMPRESSION: Small 1 cm focal consolidation with central gas likely resolving consolidation/pneumonia. Differential diagnoses may include a microabscess. Moderate constipation. No obstruction. Limited exam due to lack of IV contrast and very limited adipose tissue resulting in lack of differentiation between organs.
--- NOTE | ~2020-09-11 | CT_ITS ---
EXAMINATION: CT HEAD WITHOUT CONTRAST CLINICAL INFORMATION: AMS COMPARISON: August 17, 2020 and August 05, 2020 TECHNIQUE: Contiguous axial imaging was performed from the skull base to vertex without intravenous administration of contrast. This CT examination was performed using dose optimization techniques as appropriate, variously including the following: *Automated exposure control *Adjustment of mA and/or kV according to patient size (this includes techniques or standardized protocols for targeted exams where dose is matched to indication/reason for exam; i.e. extremities or head) *Use of iterative reconstruction technique DLP: 622 mGy-cm FINDINGS: There is no evidence of acute intracranial hemorrhage or territorial infarction. No abnormal mass effect or midline shift is seen. [place] to white matter differentiation is well preserved. No extra-axial fluid collections are identified. The ventricles are normal in size. There is no abnormal attenuation within the brain parenchyma. The osseous structures and soft tissues are normal. The mastoid air cells and visualized portions of the paranasal sinuses are well aerated. CT/CT head/brain wo con IMPRESSION: No acute intracranial pathology.
--- NOTE | 2020-09-11 12:36 | ECG_ITS ---
Test Reason : OVERDOSE Blood Pressure : / mmHG Vent. Rate : 113 BPM Atrial Rate : 113 BPM P-R Int : 146 ms QRS Dur : 076 ms QT Int : 356 ms P-R-T Axes : 078 077 055 degrees QTc Int : 488 ms Sinus tachycardia Otherwise normal ECG When compared with ECG of 17-AUG-2020 11:22, No significant change was found Referred By: Aniya Estrada Electronically Signed By:NEO TORRES
--- NOTE | 2020-09-11 12:45 | ED_ITS ---
HPI - Altered Mental Status General Chief Complaint: Recheck/Abnormal Lab/Rx Stated Complaint: OPIOID USE,NO NARCAN GIVEN,UNCOOPERATIVE Time Seen by Provider: 09/11/20 12:35 Source: patient, EMS and old records reviewed Mode of arrival: EMS Limitations: altered mental status History of Present Illness HPI narrative: 24 yo female with heavy substance abuse issues, DM with recent admits for DKA, endocarditis tricuspid, has signed out AMA multiple times was seen walking around the streets stumbling by bystanders, police notified and EMS brought patient to the ED MD complaint: altered mental status Onset (ago): unknown Severity: severe Consistency of symptoms: unknown Context: drug abuse Associated symptoms: denies other symptoms Related Data Home Medications Medication Instructions Recorded Confirmed insulin regular human [Novolin R 1 sliding scale dose SUBCUT 08/05/20 08/17/20 Regular U-100 Insuln] USEASDIRECTD Allergies Allergy/AdvReac Type Severity Reaction Status Date / Time No Known Allergies Allergy Verified 07/22/20 16:27 Review of Systems Review of Systems: ROS unable to be obtained due to altered mental status [facility] Past Medical History Attestation statement: The following information was validated with the patient. Medical History Anxiety Cocaine abuse Endocarditis Heroin abuse Social History Social History Household Members: None Housing: Homeless Do you presently have visiting nurse or other home services: No Unable to assess alcohol history related to: Unknown Substance Use Type: Crack/Cocaine and Heroin Advance Directives: No Advance Directives Information Provided: Yes service: No Current occupational status: unemployed Physical Exam Vital Signs: Vital Signs: Last Vital Signs Pulse 135 H 09/11/20 13:26 Resp 20 09/11/20 13:26 BP 114/65 09/11/20 13:26 Pulse Ox 100 09/11/20 13:26 Body Mass Index 18.9 Appearance: Somnolent, frail, cachectic, covered in multiple scabbed lesions, disheveled poor hygiene, moderate distress Eyes: Pupils equal, round and reactive to light. ENT: Pharynx severely dry, poor dentition Neck: Normal inspection. Neck supple. CVS: tachycardic heart rate and rhythm. Pulses normal. Respiratory: No respiratory distress. Breath sounds normal. Abdomen: Soft and non-tender. Skin: Skin warm and dry. Normal skin color. poor skin turgor. Extremities: No lower extremity edema. No calf ttp Neuro: responds to pain, calling out mama repeatedly, able to protect her airway, moves all extremities, follows some commands. Course Course Course Narrative: Dr. Cuellar notified of likely ICU admit 120pm Procedures EJ/Peripheral Line Arm R: Time Out Performed: Yes Skin Cleansed in Sterile Fashion: Yes Size (gauge): 20 IV Secured and Dressing Applied: Yes Patient Tolerated Procedure: well Arm L: Time Out Performed: Yes Skin Cleansed in Sterile Fashion: Yes Size (gauge): 20 IV Secured and Dressing Applied: Yes Patient Tolerated Procedure: well MDM - Altered Mental Status MDM Narrative Medical decision making narrative: 24 yo female with heavy substance abuse issues, DM with recent admits for DKA, endocarditis tricuspid, has signed out AMA multiple times was seen walking around the streets stumbling by bystanders, police notified and EMS brought patient to the ED - blood sugar read as HI, - likely DKA and endocarditis - did not conclude treatment at this time labs, cultures, COVID, DKA labs, IVF x 2L, insulin, planned admit, empiric ceftriaxone and vancomycin ordered Lab Data Result diagrams: 09/11/20 12:44 09/11/20 12:44 Labs: Lab Results 09/11/20 09/11/20 09/11/20 Range/Units 12:44 12:44 12:44 WBC 26.7 H (4.8-10.8) X10*3/uL RBC 3.72 L (4.20-5.50) X10*6/uL Hgb 10.8 L (12.0-16.0) g/dl Hct 34.8 L (37-47) % MCV 93.5 (80-98) fL MCH 29.0 (27.0-33.0) pg MCHC 31.0 (31.0-35.0) g/dl RDW 18.2 H (11.0-16.0) % Plt Count 427 H D (160-400) X10*3/uL MPV 10.5 (9.4-12.3) fL Immature Gran % (Auto) 1.0 H (0.0-0.4) % Neut % (Auto) 85.4 H (45-73) % Lymph % (Auto) 8.3 L (20-40) % [place] % (Auto) 5.2 (2-11) % Eos % (Auto) 0.0 (0-4) % Baso % (Auto) 0.1 (0-2) % Lymph # (Auto) 2.2 (1.2-4.9) X10*3/uL [place] # (Auto) 1.4 H (0.1-1.2) X10*3/uL Eos # (Auto) 0.0 (0.0-0.4) X10*3/uL Baso # (Auto) 0.0 (0.0-0.2) X10*3/uL Abs Immat Gran (auto) 0.26 H (0.00-0.03) X10*3/uL Absolute Neuts (auto) 22.8 H (2.0-8.3) X10*3/uL Absolute Nucleated RBC 0.000 (0.0-0.012) X10*3/uL Nucleated RBC % (auto) 0.0 (0.0-0.2) /100WBC Smear Tech's Comments VERIFIED PT 12.5 (10.8-13.0) SEC INR 1.1 (0.9-1.1) VBG pH (7.32-7.43) VBG pCO2 mmHg VBG pO2 mmHg VBG HCO3 (22-26) mmol/L VBG O2 Saturation % VBG Base Excess mmol/L Sodium 132 L (135-145) mmol/L Potassium 5.2 H (3.3-5.1) mmol/L Chloride 82 L D (96-108) mmol/L Carbon Dioxide 8 L* D (22-29) mmol/L Anion Gap 47 H (12-20) BUN 38 H (9-16) mg/dL Creatinine 2.15 H (0.5-1.4) mg/dL Estim Creat Clear Calc 28.5 Estimated GFR 29 Random Glucose 1273 H* (60-115) mg/dL Calcium 9.2 D (8.4-10.2) mg/dL Magnesium (1.6-2.6) mg/dL Total Bilirubin (0.0-1.0) mg/dL Direct Bilirubin (0.0-0.5) mg/dL AST (5-31) U/L ALT (0-31) U/L Alkaline Phosphatase (39-117) U/L Total Creatine Kinase (26-140) U/L Troponin I High Sens (<3.5-17.0) ng/L Total Protein (6.5-8.0) g/dL Albumin (3.5-5.0) g/dL Beta HCG, Quant < 2 mIU/mL Salicylates (15-30) mg/dL Acetaminophen (<30) mcg/mL Ethyl Alcohol mg/dL Acetone, Qual Large H (Negative) 09/11/20 09/11/20 09/11/20 Range/Units 12:44 12:44 12:44 WBC (4.8-10.8) X10*3/uL RBC (4.20-5.50) X10*6/uL Hgb (12.0-16.0) g/dl Hct (37-47) % MCV (80-98) fL MCH (27.0-33.0) pg MCHC (31.0-35.0) g/dl RDW (11.0-16.0) % Plt Count (160-400) X10*3/uL MPV (9.4-12.3) fL Immature Gran % (Auto) (0.0-0.4) % Neut % (Auto) (45-73) % Lymph % (Auto) (20-40) % [place] % (Auto) (2-11) % Eos % (Auto) (0-4) % Baso % (Auto) (0-2) % Lymph # (Auto) (1.2-4.9) X10*3/uL [place] # (Auto) (0.1-1.2) X10*3/uL Eos # (Auto) (0.0-0.4) X10*3/uL Baso # (Auto) (0.0-0.2) X10*3/uL Abs Immat Gran (auto) (0.00-0.03) X10*3/uL Absolute Neuts (auto) (2.0-8.3) X10*3/uL Absolute Nucleated RBC (0.0-0.012) X10*3/uL Nucleated RBC % (auto) (0.0-0.2) /100WBC Smear Tech's Comments PT (10.8-13.0) SEC INR (0.9-1.1) VBG pH (7.32-7.43) VBG pCO2 mmHg VBG pO2 mmHg VBG HCO3 (22-26) mmol/L VBG O2 Saturation % VBG Base Excess mmol/L Sodium (135-145) mmol/L Potassium (3.3-5.1) mmol/L Chloride (96-108) mmol/L Carbon Dioxide (22-29) mmol/L Anion Gap (12-20) BUN (9-16) mg/dL Creatinine (0.5-1.4) mg/dL Estim Creat Clear Calc Estimated GFR Random Glucose (60-115) mg/dL Calcium (8.4-10.2) mg/dL Magnesium 3.1 H (1.6-2.6) mg/dL Total Bilirubin 0.5 (0.0-1.0) mg/dL Direct Bilirubin 0.3 (0.0-0.5) mg/dL AST 42 H D (5-31) U/L ALT 75 H (0-31) U/L Alkaline Phosphatase 212 H D (39-117) U/L Total Creatine Kinase 52 D (26-140) U/L Troponin I High Sens 3.5 (<3.5-17.0) ng/L Total Protein 7.2 D (6.5-8.0) g/dL Albumin 3.8 D (3.5-5.0) g/dL Beta HCG, Quant mIU/mL Salicylates < 5.0 L (15-30) mg/dL Acetaminophen < 1 (<30) mcg/mL Ethyl Alcohol < 10 mg/dL Acetone, Qual (Negative) 09/11/20 Range/Units 12:50 WBC (4.8-10.8) X10*3/uL RBC (4.20-5.50) X10*6/uL Hgb (12.0-16.0) g/dl Hct (37-47) % MCV (80-98) fL MCH (27.0-33.0) pg MCHC (31.0-35.0) g/dl RDW (11.0-16.0) % Plt Count (160-400) X10*3/uL MPV (9.4-12.3) fL Immature Gran % (Auto) (0.0-0.4) % Neut % (Auto) (45-73) % Lymph % (Auto) (20-40) % [place] % (Auto) (2-11) % Eos % (Auto) (0-4) % Baso % (Auto) (0-2) % Lymph # (Auto) (1.2-4.9) X10*3/uL [place] # (Auto) (0.1-1.2) X10*3/uL Eos # (Auto) (0.0-0.4) X10*3/uL Baso # (Auto) (0.0-0.2) X10*3/uL Abs Immat Gran (auto) (0.00-0.03) X10*3/uL Absolute Neuts (auto) (2.0-8.3) X10*3/uL Absolute Nucleated RBC (0.0-0.012) X10*3/uL Nucleated RBC % (auto) (0.0-0.2) /100WBC Smear Tech's Comments PT (10.8-13.0) SEC INR (0.9-1.1) VBG pH 7.20 L* (7.32-7.43) VBG pCO2 23 mmHg VBG pO2 112 mmHg VBG HCO3 9 L (22-26) mmol/L VBG O2 Saturation 96.0 % VBG Base Excess -16.6 mmol/L Sodium (135-145) mmol/L Potassium (3.3-5.1) mmol/L Chloride (96-108) mmol/L Carbon Dioxide (22-29) mmol/L Anion Gap (12-20) BUN (9-16) mg/dL Creatinine (0.5-1.4) mg/dL Estim Creat Clear Calc Estimated GFR Random Glucose (60-115) mg/dL Calcium (8.4-10.2) mg/dL Magnesium (1.6-2.6) mg/dL Total Bilirubin (0.0-1.0) mg/dL Direct Bilirubin (0.0-0.5) mg/dL AST (5-31) U/L ALT (0-31) U/L Alkaline Phosphatase (39-117) U/L Total Creatine Kinase (26-140) U/L Troponin I High Sens (<3.5-17.0) ng/L Total Protein (6.5-8.0) g/dL Albumin (3.5-5.0) g/dL Beta HCG, Quant mIU/mL Salicylates (15-30) mg/dL Acetaminophen (<30) mcg/mL Ethyl Alcohol mg/dL Acetone, Qual (Negative) ECG Data ECG #1: Attestation: I personally reviewed and interpreted this ECG as follows: ECG interpretation date: 09/11/20 ECG interpretation time: 14:04 Interpretation: Rate: 113 Rhythm: sinus tachycardia [place]: normal Normal P waves. Normal [place]. Normal QRS complex. ST T wave : normal qTC: normal prior studies: no acute ischemia The study has been interpreted contemporaneously by me. . Critical Care Time Critical Care Time Critical Care Time: Yes Total Critical Care Time: 60 Attestation: IVF 2L bolus, review of records, insulin drip, medical consult. I attest to this time spent taking care of the patient Discharge Plan Discharge Clinical Impression: Polysubstance abuse, RUDI (acute kidney injury) Leukocytosis Qualifiers: Leukocytosis type: unspecified Qualified Code(s): D72.829 - Elevated white blood cell count, unspecified DKA (diabetic ketoacidoses) Qualifiers: Diabetes mellitus type: type 1 Diabetes mellitus complication detail: without coma Qualified Code(s): E10.10 - Type 1 diabetes mellitus with ketoacidosis without coma Patient Disposition: Admitted As Inpatient
[2020-09-11 12:56] LABS: Basophils Percent Auto 0.1 % (0-2); Hematocrit 34.8 % (37-47); Hemoglobin 10.8 g/dl (12.0-16.0); Imm Gran Abs Auto 0.26 X10*3/uL (0.00-0.03); Lymphocytes Absolute Auto 2.2 X10*3/uL (1.2-4.9); Lymphocytes Percent Auto 8.3 % (20-40); MANUAL DIFF FLAG SCAN; Mean Corpuscular Volume 93.5 fL (80-98); Mean Platelet Volume 10.5 fL (9.4-12.3); Monocytes Absolute Auto 1.4 X10*3/uL (0.1-1.2); Monocytes Percent Auto 5.2 % (2-11); Neutrophils Absolute Auto 22.8 X10*3/uL (2.0-8.3); Neutrophils Percent Auto 85.4 % (45-73); Platelet Count 427 X10*3/uL (160-400); Red Blood Count 3.72 X10*6/uL (4.20-5.50); Red Cell Distribution Width 18.2 % (11.0-16.0); SCAN SMEAR FLAG 1; White Blood Count 26.7 X10*3/uL (4.8-10.8)
[2020-09-11 13:00] LABS: VBG Base Excess -16.6 mmol/L; VBG HCO3 9 mmol/L (22-26); VBG pCO2 23 mmHg; VBG pO2 112 mmHg
[2020-09-11 13:02] LABS: INTERNATIONAL NORM RATIO 1.1 (0.9-1.1); Prothrombin Time 12.5 SEC (10.8-13.0)
[2020-09-11 13:03] LABS: Venous Blood Gas Refer to POC result
[2020-09-11] MEDS: Insulin Regular, Human 100 UNIT/ML 3 ML VIAL 10 UNIT IVPUSH (13:09)
[2020-09-11] MEDS: 0.9 % Sodium Chloride 1,000 ML 999 ML IVCONT ×2 (13:09)
[2020-09-11 13:19] LABS: Ethanol < 10 mg/dL
[2020-09-11 13:24] LABS: SLIDE REVIEW VERIFIED
[2020-09-11] MEDS: Insulin Regular/NS 100 UNIT/100 ML PLAST..BAG IVCONT (13:24)
[2020-09-11 13:26] LABS: Acetone, serum QL Large (Negative); Troponin-I High Sensitivity 3.5 ng/L (<3.5-17.0)
[2020-09-11 13:31] LABS: HCG Quantitative < 2 mIU/mL
[2020-09-11 13:32] LABS: Alanine Aminotransferase 75 U/L (0-31); Albumin Level 3.8 g/dL (3.5-5.0); Alkaline Phosphatase 212 U/L (39-117); Aspartate Amino Transferase 42 U/L (5-31); Bilirubin Direct 0.3 mg/dL (0.0-0.5); Bilirubin Total 0.5 mg/dL (0.0-1.0); Blood Urea Nitrogen 38 mg/dL (9-16); Calcium 9.2 mg/dL (8.4-10.2); Creatinine Clr Calc Pharmacy 28.5; Estimated Glomerular Filt Rate 29; Magnesium 3.1 mg/dL (1.6-2.6); Total Protein 7.2 g/dL (6.5-8.0)
--- NOTE | 2020-09-11 13:40 | PC.NURSE ---
Pt presents to ED with [id number] speech, falls asleep easily, but awakes with verbal stimuli. sores noted to face and generalized body. Pt appears emaciated and frail. POC on arrival greater than 600. n Pt moved to room 8 and changed to hospital attire, belongings to [facility] room by security. B/L AC peripheral lines obtained by Dr Rubalcava via ultrasound. Fluids and insulin given. Pt sleeping with periods of being awake and uncooperative, asking for apple juice and andrea kimberly, pt redirected and educated on elevated blood sugar at this time with little effect. Pt difficult to understand at times, mucous membranes dry. Pt voiding in bed large amount. Breathing is even.unlabored. Sinus tachy on tele. Insulin infusion at 5units/hr per order
[2020-09-11 13:42] LABS: Acetaminophen LAB < 1 mcg/mL (<30); Salicylate < 5.0 mg/dL (15-30)
[2020-09-11 13:46] LABS: Anion Gap 47 (12-20); Carbon Dioxide 8 mmol/L (22-29); Chloride 82 mmol/L (96-108); Potassium 5.2 mmol/L (3.3-5.1); Sodium 132 mmol/L (135-145)
[2020-09-11] MEDS: cefTRIAXone sodium 2 GM in 0.9 % Sodium Chloride 50 ML IV (13:50)
[2020-09-11 13:56] LABS: Glucose Random 1273 mg/dL (60-115)
[2020-09-11] MEDS: vancomycin HCL 750 MG in 0.9 % Sodium Chloride 250 ML 265 MG IV (14:04)
--- NOTE | 2020-09-11 14:25 | PC.NURSE ---
Out of room for imaging at this time
--- NOTE | 2020-09-11 14:40 | P.HPCC_ITS ---
History of Present Illness Date of Service: 09/11/20 Chief Complaint: Altered mental status 24-year-old pathetic case does not care for herself chronic polysubstance abuser and type 1 diabetic who does not take her insulin and we repeat presents on multiple occasions with diabetic ketoacidosis and unfortunately has no hygiene lives on the street and on the last visit we noticed a huge mass presumably vegetation on the tricuspid valve blood cultures did not yield anything but she did grow strep pyogenes ease of from skin wounds which appear to be primarily scabies with secondary impetigo and she was covered with vancomycin but she always signs out against medical advice and refuses treatment when she awakens Currently with markedly diminished level of responsiveness no history or review of systems able to be obtained she appears to be cachectic diffuse palpable lymphadenopathy and skin from head to soles of her feet covered with eroded papules most of which are more secondarily crusted and right now at least mildly in a tachypneic as she does have a very significant positive anion gap metabolic acidosis with co associated respiratory alkalosis and probably by the gap-gap a associated metabolic alkalosis and because she does not take medicine presumably that is related to vomiting HCG is negative but she is positive for hepatitis-C and this time she has elevated liver function tests including transaminases and alkaline phosphatase but not bilirubin but there is no alcohol level and also has acute stage III renal failure with hyponatremia and hyperkalemia Review of Systems Review of Systems: Yes Unobtainable due to mental status PMFSH Past Medical History Medical History Anxiety Cocaine abuse Endocarditis Heroin abuse Social History Social History Household Members: None Housing: Homeless Do you presently have visiting nurse or other home services: No Unable to assess alcohol history related to: Unknown Alcohol intake: unknown Patient Tobacco Use Status: Tobacco use Unknown Use of substances other than those prescribed or required for medical reasons: Yes Substance Use Type: Heroin and Methamphetamine Advance Directives: No Advance Directives Information Provided: Yes service: No Current occupational status: unemployed Meds Allergies Allergy/AdvReac Type Severity Reaction Status Date / Time No Known Allergies Allergy Verified 07/22/20 16:27 Active Medications: Current Medications Generic Name Dose Route Start Last Admin Trade Name Freq PRN Reason Stop Dose Admin Insulin Human Regular 100 unit in 100 mls @ 5 mls/hr 09/11/20 12:45 09/11/20 13:24 Myxredlin IVCONT 5 mls/hr .Q20H MIKKI 5 mls/hr Administration Protocol Sodium Chloride 1,000 mls @ 200 mls/hr 09/11/20 14:30 Ns IVCONT .Q5H MIKKI Permethrin 1 appl 09/11/20 14:39 Permethrin 1 % Lotion 59 Ml Btl TOPICAL 09/11/20 14:40 ONCE ONE Pharmacy Consult 1 each 09/11/20 12:43 Consult Rx Vancomycin Dosing MISCELLANE DAILY PRN Consult order Sodium Chloride 3 ml 09/11/20 16:00 0.9 % Sodium Chloride Flush 3 Ml Syringe IVFLUSH QSHIFT [facility] Home Medications Medication Instructions Recorded Confirmed Last Taken Type insulin regular human [Novolin R 1 sliding scale dose SUBCUT 08/05/20 08/17/20 Unknown History Regular U-100 Insuln] USEASDIRECTD Physical Exam Vital Signs: Vital Signs: Last Vital Signs Pulse 105 H 09/11/20 14:14 Resp 16 09/11/20 14:14 BP 134/85 09/11/20 14:14 Pulse Ox 100 09/11/20 14:14 Body Mass Index 18.9 Barely arousable and appearing to be cachectic with skin covered by a scabies lesions and probably secondary impetigo Neck veins are flat has reduced bilateral carotid upstrokes due to hypovolemia Chest clear Abdomen soft nontender good bowel sounds Results Labs CBC and Chem 7: 09/11/20 12:44 09/11/20 12:44 Labs: Laboratory Results - last 24 hr 09/11/20 09/11/20 09/11/20 12:44 12:44 12:44 MCV 93.5 MCH 29.0 MCHC 31.0 RDW 18.2 H Plt Count 427 H D MPV 10.5 Immature Gran % (Auto) 1.0 H Neut % (Auto) 85.4 H Lymph % (Auto) 8.3 L [place] % (Auto) 5.2 Eos % (Auto) 0.0 Baso % (Auto) 0.1 Lymph # (Auto) 2.2 [place] # (Auto) 1.4 H Eos # (Auto) 0.0 Baso # (Auto) 0.0 Abs Immat Gran (auto) 0.26 H Absolute Neuts (auto) 22.8 H Absolute Nucleated RBC 0.000 Nucleated RBC % (auto) 0.0 Smear Tech's Comments VERIFIED PT 12.5 INR 1.1 VBG pH VBG pCO2 VBG pO2 VBG HCO3 VBG O2 Saturation VBG Base Excess Anion Gap 47 H Estim Creat Clear Calc 28.5 Estimated GFR 29 Random Glucose 1273 H* Calcium 9.2 D Magnesium Total Bilirubin Direct Bilirubin AST ALT Alkaline Phosphatase Total Creatine Kinase Troponin I High Sens Total Protein Albumin Beta HCG, Quant < 2 Salicylates Acetaminophen Ethyl Alcohol Acetone, Qual Large H 09/11/20 09/11/20 09/11/20 12:44 12:44 12:44 MCV MCH MCHC RDW Plt Count MPV Immature Gran % (Auto) Neut % (Auto) Lymph % (Auto) [place] % (Auto) Eos % (Auto) Baso % (Auto) Lymph # (Auto) [place] # (Auto) Eos # (Auto) Baso # (Auto) Abs Immat Gran (auto) Absolute Neuts (auto) Absolute Nucleated RBC Nucleated RBC % (auto) Smear Tech's Comments PT INR VBG pH VBG pCO2 VBG pO2 VBG HCO3 VBG O2 Saturation VBG Base Excess Anion Gap Estim Creat Clear Calc Estimated GFR Random Glucose Calcium Magnesium 3.1 H Total Bilirubin 0.5 Direct Bilirubin 0.3 AST 42 H D ALT 75 H Alkaline Phosphatase 212 H D Total Creatine Kinase 52 D Troponin I High Sens 3.5 Total Protein 7.2 D Albumin 3.8 D Beta HCG, Quant Salicylates < 5.0 L Acetaminophen < 1 Ethyl Alcohol < 10 Acetone, Qual 09/11/20 12:50 MCV MCH MCHC RDW Plt Count MPV Immature Gran % (Auto) Neut % (Auto) Lymph % (Auto) [place] % (Auto) Eos % (Auto) Baso % (Auto) Lymph # (Auto) [place] # (Auto) Eos # (Auto) Baso # (Auto) Abs Immat Gran (auto) Absolute Neuts (auto) Absolute Nucleated RBC Nucleated RBC % (auto) Smear Tech's Comments PT INR VBG pH 7.20 L* VBG pCO2 23 VBG pO2 112 VBG HCO3 9 L VBG O2 Saturation 96.0 VBG Base Excess -16.6 Anion Gap Estim Creat Clear Calc Estimated GFR Random Glucose Calcium Magnesium Total Bilirubin Direct Bilirubin AST ALT Alkaline Phosphatase Total Creatine Kinase Troponin I High Sens Total Protein Albumin Beta HCG, Quant Salicylates Acetaminophen Ethyl Alcohol Acetone, Qual Assessment and Plan (1) Leukocytosis: Qualifiers: Leukocytosis type: unspecified Qualified Code(s): D72.829 - Elevated white blood cell count, unspecified Status: Acute (2) RUDI (acute kidney injury): Status: Acute (3) DKA (diabetic ketoacidoses): Qualifiers: Diabetes mellitus complication detail: without coma Diabetes mellitus type: type 1 Qualified Code(s): E10.10 - Type 1 diabetes mellitus with keto acidosis without coma Status: Acute (4) Cocaine use disorder, moderate, dependence: Status: Acute (5) Opioid use disorder, severe, dependence: Status: Acute (6) Endocarditis: Status: Acute (7) Acute renal failure: Status: Acute (8) Polysubstance abuse: Status: Acute (9) Cheilosis: Status: Acute At diabetic ketoacidosis but clearly has a triple acid-base abnormality in cluding respiratory alkalosis which is compensating for the metabolic DKA and and also metabolic alkalosis probably from vomiting and currently will replace that with normal saline which should also help us correct both her renal insufficiency and secondary hyperkalemia and as we start her on an IV insulin drip as well for the glucose level of the 1200 Will do a skin cleaning with permethrin and she did receive ceftriaxone and vancomycin in the emergency room and at this level of renal function it will suffice until at least 12-15 hours from now and will await cultures Sanchez catheter for fluid management as well as for toxicology screen Chest and abdominal CT scan and because of the leukocytosis and also elevation of liver function tests
[2020-09-11 14:42] LABS: Glucose, Whole Blood > 600 mg/dL (60-115)
[2020-09-11 14:53] LABS: Glucose, Whole Blood > 600 mg/dL (60-115)
[2020-09-11 16:02] LABS: Glucose, Whole Blood > 600 mg/dL (60-115)
[2020-09-11] MEDS: 0.9 % Sodium Chloride Flush 3 ML SYRINGE IVFLUSH ×2 (16:05→21:07)
[2020-09-11] MEDS: 0.9 % Sodium Chloride 1,000 ML 200 ML IVCONT ×2 (16:05→21:07)
--- NOTE | 2020-09-11 16:09 | PC.NURSE ---
Pt remains asleep, awakes easily with agitation. HR has trended down and mid 90s to low 100s. NS @ 200ml/hr per order and insulin continues to infuse, last POC reads high on glucometer, Dr Rubalcava to be notified. Vitals stable
[2020-09-11 16:15] LABS: Lactic Acid 1.3 mmol/L (0.5-2.0)
[2020-09-11 16:27] LABS: COVID-19 Test Negative (Negative); IDNOW Serial# 9DD0AD1C
[2020-09-11] MEDS: Permethrin 1 % Lotion 59 ML BTL 1 APPL TOPICAL (17:00)
--- NOTE | 2020-09-11 17:00 | PC.NURSE ---
Pt cleaned for urine incontinence, attempted to apply Permethrin cream however pt uncooperative and unable to fully apply. NSR on tele. Last insulin titrated up to 10units/hr. Pt sleeping when care not be given.
[2020-09-11 17:25] LABS: Glucose, Whole Blood 436 mg/dL (60-115)
--- NOTE | 2020-09-11 17:27 | PC.NURSE ---
Last POC 436, Per Dr Rubalcava, titrate Insulin gtt to 5units/hr.
--- NOTE | 2020-09-11 18:25 | PC.NURSE ---
Last POC 372, no change to gtt (drop of 64)
[2020-09-11 18:29] LABS: Glucose, Whole Blood 372 mg/dL (60-115)
--- NOTE | 2020-09-11 19:00 | PC.NURSE ---
Report to SALES BROKER María and YOLA Bartlett RN
--- NOTE | 2020-09-11 19:18 | PC.NURSE ---
ALFONSO INSERTED W/O DIFFICULTY. PT WOKE UP AND FELL BACK TO SLEEP. PT GETTING READY FOR TRANSPORT TO ICU AT THIS TIME. REPORT GIVEN BY PREVIOUS RN.
[2020-09-11 19:28] LABS: Glucose, Whole Blood 273 mg/dL (60-115)
--- NOTE | 2020-09-11 20:03 | PC.NURSE ---
PT TRANSFERRED TO ICU AT THIS TIME. BS - 273, INFORMED ICU NURSES PUMP RATE WAS NOT CHG ACCORDING TO BS. 16F ALFONSO INSERTED AND EMPTIED 500ML OF CLEAR YELLOW URINE. UPDATED REPORT TO ICU. PT LEFT ON ZOLL MONITOR W/O INCIDENT. PT LEFT ED IN NAD.
[2020-09-11 20:42] LABS: Glucose Urine UA 500 MG/DL (NEG); Leukocyte Esterase Urine NEG (NEG); Nitrite Urine NEG (NEG); PH 5.5 (5.0-8.0); Urine Blood NEG (NEG); Urine Ketones >=80 MG/DL (NEG); Urine Protein NEG (NEG-TRACE)
[2020-09-11 20:43] LABS: Appearance Urine HAZY; Color Urine YELLOW
[2020-09-11 21:03] LABS: VBG Base Excess 6.3 mmol/L; VBG HCO3 28 mmol/L (22-26); VBG pCO2 31 mmHg; VBG pH 7.56 (7.32-7.43); VBG pO2 83 mmHg
[2020-09-11 21:15] LABS: Amphetamine Screen Urine Not Detected (Not Detect); Barbiturates, Urine Not Detected (Not Detect); Benzodiazepines Screen Urine Not Detected (Not Detect); Cannabinoid Screen Urine Not Detected (Not Detect); Cocaine Screen Urine POSITIVE (Not Detect); Opiate Screen Urine POSITIVE (Not Detect); Phencyclidine Screen Urine Not Detected (Not Detect)
[2020-09-11 21:29] LABS: Glucose, Whole Blood 146 mg/dL (60-115)
[2020-09-11 21:29] LABS: Glucose, Whole Blood 202 mg/dL (60-115)
[2020-09-11 21:50] LABS: Blood Urea Nitrogen 22 mg/dL (9-16); Calcium 8.3 mg/dL (8.4-10.2); Creatinine Clr Calc Pharmacy 58.7; Estimated Glomerular Filt Rate > 60; Glucose Random 178 mg/dL (60-115)
[2020-09-11 21:57] LABS: Anion Gap 21 (12-20); Carbon Dioxide 20 mmol/L (22-29); Chloride 110 mmol/L (96-108); Potassium 4.1 mmol/L (3.3-5.1); Sodium 147 mmol/L (135-145)
[2020-09-11 22:03] LABS: Glucose, Whole Blood 156 mg/dL (60-115)
[2020-09-11 22:22] LABS: Venous Blood Gas Refer to POC result
[2020-09-11] MEDS: Dextrose 5 % and 0.45 % NaCl 1,000 ML 80 ML IVCONT (22:49)
[2020-09-11 22:57] LABS: Glucose, Whole Blood 125 mg/dL (60-115)
[2020-09-12] VITALS (20 sets, daily range): BP systolic 111–136; BP diastolic 67–90; PULSE 66–107; RESP 14–28; TEMP 36.4–37.1; O2SAT 92–100; BMI 18.5
[2020-09-12 00:43] LABS: Glucose, Whole Blood 135 mg/dL (60-115)
[2020-09-12 00:58] LABS: Anion Gap 17 (12-20); Blood Urea Nitrogen 25 mg/dL (9-16); Calcium 8.1 mg/dL (8.4-10.2); Carbon Dioxide 26 mmol/L (22-29); Chloride 110 mmol/L (96-108); Creatinine Clr Calc Pharmacy 59.8; Estimated Glomerular Filt Rate > 60; Glucose Random 128 mg/dL (60-115); Potassium 4.2 mmol/L (3.3-5.1); Sodium 149 mmol/L (135-145)
[2020-09-12 01:25] LABS: Glucose, Whole Blood 134 mg/dL (60-115)
[2020-09-12 03:20] LABS: Glucose, Whole Blood 176 mg/dL (60-115)
[2020-09-12] MEDS: LORazepam 2 MG/ML VIAL 0.5 MG IVPUSH (03:33)
[2020-09-12 05:13] LABS: Glucose, Whole Blood 229 mg/dL (60-115)
[2020-09-12] MEDS: Insulin Glargine,Hum.rec.anlog 100 UNIT/ML 10 ML VIAL 20 UNIT SUBCUT (05:45)
--- NOTE | 2020-09-12 06:05 | PC.NURSE ---
Admitted via ED approx 1999. On insulin gtt overnight, transitioned to lantus this am. GTT off approx 0545. Patient increasingly alert. Remains uncooperative/belligerent. Refusing to provide any meaningful assessment data, while repeatedly demanding snacks and drinks. Yelling out, removing equipment, and refusing labs/vitals/treatment intermittently. Constantly demanding gingerale/apple juice. Attempts to educate or moderate beverage intake met with constant yelling and refusal of care. No impulse control- Will gulp down any beverage in seconds prior to vomiting bile all over self. Witnessed vomiting 5 times by this RN, but there was also vomit found in the bed multiple times. Numerous full baths/bed changes when patient would allow. Refused to allow staff to wash hair, which is crusted with vomit. UOP poor, <15 cc for several hours. PA aware. IVF orders changed with good effect on UOP, now approx 60 cc/hr. Scabs/pustules all over skin with areas of excoriation from scratching. Refusing permethrin cream. Open area to sacrum/coccyx. Diabetic ulcer left superior foot. Photos on chart.
[2020-09-12 06:49] LABS: Venous Blood Gas Refer to POC result
[2020-09-12 06:49] LABS: VBG Base Excess 6.4 mmol/L; VBG HCO3 30 mmol/L (22-26); VBG pCO2 38 mmHg; VBG pH 7.49 (7.32-7.43); VBG pO2 124 mmHg
[2020-09-12 06:54] LABS: Basophils Absolute Auto 0.1 X10*3/uL (0.0-0.2); Basophils Percent Auto 0.2 % (0-2); Hematocrit 29.3 % (37-47); Hemoglobin 10.1 g/dl (12.0-16.0); Imm Gran Abs Auto 0.18 X10*3/uL (0.00-0.03); Imm Gran Pct Auto 0.6 % (0.0-0.4); Lymphocytes Absolute Auto 2.8 X10*3/uL (1.2-4.9); Lymphocytes Percent Auto 9.5 % (20-40); MANUAL DIFF FLAG SCAN; Mean Corpuscular HGB Conc 34.5 g/dl (31.0-35.0); Mean Corpuscular Hemoglobin 29.3 pg (27.0-33.0); Mean Corpuscular Volume 84.9 fL (80-98); Mean Platelet Volume 9.4 fL (9.4-12.3); Monocytes Absolute Auto 1.2 X10*3/uL (0.1-1.2); Monocytes Percent Auto 4.1 % (2-11); Neutrophils Absolute Auto 24.9 X10*3/uL (2.0-8.3); Neutrophils Percent Auto 85.6 % (45-73); Platelet Count 241 X10*3/uL (160-400); Red Blood Count 3.45 X10*6/uL (4.20-5.50); Red Cell Distribution Width 18.1 % (11.0-16.0); SCAN SMEAR FLAG 1; White Blood Count 29.1 X10*3/uL (4.8-10.8)
[2020-09-12 07:09] LABS: Anion Gap 20 (12-20); Blood Urea Nitrogen 25 mg/dL (9-16); Calcium 7.9 mg/dL (8.4-10.2); Carbon Dioxide 24 mmol/L (22-29); Chloride 105 mmol/L (96-108); Creatinine Clr Calc Pharmacy 58.7; Estimated Glomerular Filt Rate > 60; Glucose Random 250 mg/dL (60-115); Magnesium 2.1 mg/dL (1.6-2.6); Phosphorus 2.3 mg/dL (2.7-4.5); Potassium 3.5 mmol/L (3.3-5.1); Sodium 145 mmol/L (135-145)
[2020-09-12 07:26] LABS: Glucose, Whole Blood 314 mg/dL (60-115)
[2020-09-12 07:26] LABS: Glucose, Whole Blood 385 mg/dL (60-115)
[2020-09-12 07:29] LABS: Estimated Average Glucose 315 mg/dL; Hemoglobin A1c % 12.6 %
[2020-09-12] MEDS: 0.9 % Sodium Chloride Flush 3 ML SYRINGE IVFLUSH (07:36)
[2020-09-12] MEDS: Insulin Lispro 100 UNIT/ML 3 ML VIAL SUBCUT ×2 (07:36→11:25)
[2020-09-12 07:44] LABS: SLIDE REVIEW VERIFIED
--- NOTE | 2020-09-12 07:49 | P.PNCC_ITS ---
Subjective Subjective Date of Service: 09/12/20 Interval History: Unfortunate 24-year-old appearing very cachectic is a type 1 diabetic who does not treat herself at all [place] [address] [place] comes in for repeated episodes of diabetic ketoacidosis he usually up to hundred Critical Care Time (minutes): 25 Comment: Dictation got cut off Very uncooperative a type 1 diabetic with 1 of a multiple number of episodes of diabetic ketoacidosis currently anion gap has normalized and serum bicarb is 24 looking very good from that standpoint but has tricuspid valve endocarditis thus far culture negative with more cultures pending she is on antibiotics not only to cover for this diagnosis empirically but also to cover her for what appears to be impetigo and I believe the primary skin lesions are scabies and would just switching her over now to Lantus and subcutaneous coverage and starting her on a diet and we we would prefer to keep her in the hospital as long as possible to del liver therapy for her endocarditis Physical Exam Vital Signs: Vital Signs: Last Vital Signs Temp 97.5 F 09/12/20 04:00 Pulse 105 H 09/12/20 07:00 Resp 28 H 09/12/20 07:00 BP 136/75 09/12/20 07:00 Pulse Ox 100 09/12/20 07:00 Body Mass Index 18.5 Const: Other: Encephalopathy has reversed neurologically intact Cardiovascular within normal limits Chest clear Abdomen benign soft with good bowel sounds Objective Data Labs CBC & Chem 7: 09/12/20 06:37 09/12/20 05:42 Labs: Laboratory Results - last 24 hr 09/11/20 09/11/20 09/11/20 12:30 12:44 12:44 WBC 26.7 H RBC 3.72 L Hgb 10.8 L Hct 34.8 L MCV 93.5 MCH 29.0 MCHC 31.0 RDW 18.2 H Plt Count 427 H D MPV 10.5 Immature Gran % (Auto) 1.0 H Neut % (Auto) 85.4 H Lymph % (Auto) 8.3 L [place] % (Auto) 5.2 Eos % (Auto) 0.0 Baso % (Auto) 0.1 Lymph # (Auto) 2.2 [place] # (Auto) 1.4 H Eos # (Auto) 0.0 Baso # (Auto) 0.0 Abs Immat Gran (auto) 0.26 H Absolute Neuts (auto) 22.8 H Absolute Nucleated RBC 0.000 Nucleated RBC % (auto) 0.0 Smear Tech's Comments VERIFIED PT INR VBG pH VBG pCO2 VBG pO2 VBG HCO3 VBG O2 Saturation VBG Base Excess Sodium 132 L Potassium 5.2 H Chloride 82 L D Carbon Dioxide 8 L* D Anion Gap 47 H BUN 38 H Creatinine 2.15 H Estim Creat Clear Calc 28.5 Estimated GFR 29 POC Glucose > 600 H* Random Glucose 1273 H* Estimat Average Glucose Hemoglobin A1c % Lactic Acid Calcium 9.2 D Phosphorus Magnesium Total Bilirubin Direct Bilirubin AST ALT Alkaline Phosphatase Total Creatine Kinase Troponin I High Sens Total Protein Albumin Beta HCG, Quant < 2 Urine Color Urine Appearance Urine pH Ur Specific [place] Urine Protein Urine Glucose (UA) Urine Ketones Urine Blood Urine Nitrite Ur Leukocyte Esterase Salicylates Urine Opiates Screen Acetaminophen Ur Barbiturates Screen Ur Phencyclidine Scrn Ur Amphetamines Screen U Benzodiazepines Scrn Urine Cocaine Screen U Marijuana (THC) Screen Ethyl Alcohol Acetone, Qual Large H COVID-19 (BRENDA) COVID-19 Clin Com 09/11/20 09/11/20 09/11/20 12:44 12:44 12:44 WBC RBC Hgb Hct MCV MCH MCHC RDW Plt Count MPV Immature Gran % (Auto) Neut % (Auto) Lymph % (Auto) [place] % (Auto) Eos % (Auto) Baso % (Auto) Lymph # (Auto) [place] # (Auto) Eos # (Auto) Baso # (Auto) Abs Immat Gran (auto) Absolute Neuts (auto) Absolute Nucleated RBC Nucleated RBC % (auto) Smear Tech's Comments PT 12.5 INR 1.1 VBG pH VBG pCO2 VBG pO2 VBG HCO3 VBG O2 Saturation VBG Base Excess Sodium Potassium Chloride Carbon Dioxide Anion Gap BUN Creatinine Estim Creat Clear Calc Estimated GFR POC Glucose Random Glucose Estimat Average Glucose Hemoglobin A1c % Lactic Acid Calcium Phosphorus Magnesium 3.1 H Total Bilirubin 0.5 Direct Bilirubin 0.3 AST 42 H D ALT 75 H Alkaline Phosphatase 212 H D Total Creatine Kinase 52 D Troponin I High Sens 3.5 Total Protein 7.2 D Albumin 3.8 D Beta HCG, Quant Urine Color Urine Appearance Urine pH Ur Specific [place] Urine Protein Urine Glucose (UA) Urine Ketones Urine Blood Urine Nitrite Ur Leukocyte Esterase Salicylates < 5.0 L Urine Opiates Screen Acetaminophen < 1 Ur Barbiturates Screen Ur Phencyclidine Scrn Ur Amphetamines Screen U Benzodiazepines Scrn Urine Cocaine Screen U Marijuana (THC) Screen Ethyl Alcohol Acetone, Qual COVID-19 (BRENDA) COVID-19 Fitfully 09/11/20 09/11/20 09/11/20 12:44 12:50 14:48 WBC RBC Hgb Hct MCV MCH MCHC RDW Plt Count MPV Immature Gran % (Auto) Neut % (Auto) Lymph % (Auto) [place] % (Auto) Eos % (Auto) Baso % (Auto) Lymph # (Auto) [place] # (Auto) Eos # (Auto) Baso # (Auto) Abs Immat Gran (auto) Absolute Neuts (auto) Absolute Nucleated RBC Nucleated RBC % (auto) Smear Tech's Comments PT INR VBG pH 7.20 L* VBG pCO2 23 VBG pO2 112 VBG HCO3 9 L VBG O2 Saturation 96.0 VBG Base Excess -16.6 Sodium Potassium Chloride Carbon Dioxide Anion Gap BUN Creatinine Estim Creat Clear Calc Estimated GFR POC Glucose > 600 H* Random Glucose Estimat Average Glucose Hemoglobin A1c % Lactic Acid Calcium Phosphorus Magnesium Total Bilirubin Direct Bilirubin AST ALT Alkaline Phosphatase Total Creatine Kinase Troponin I High Sens Total Protein Albumin Beta HCG, Quant Urine Color Urine Appearance Urine pH Ur Specific [place] Urine Protein Urine Glucose (UA) Urine Ketones Urine Blood Urine Nitrite Ur Leukocyte Esterase Salicylates Urine Opiates Screen Acetaminophen Ur Barbiturates Screen Ur Phencyclidine Scrn Ur Amphetamines Screen U Benzodiazepines Scrn Urine Cocaine Screen U Marijuana (THC) Screen Ethyl Alcohol < 10 Acetone, Qual COVID-19 (BRENDA) COVID-19 Fitfully 09/11/20 09/11/20 09/11/20 15:46 15:46 15:58 WBC RBC Hgb Hct MCV MCH MCHC RDW Plt Count MPV Immature Gran % (Auto) Neut % (Auto) Lymph % (Auto) [place] % (Auto) Eos % (Auto) Baso % (Auto) Lymph # (Auto) [place] # (Auto) Eos # (Auto) Baso # (Auto) Abs Immat Gran (auto) Absolute Neuts (auto) Absolute Nucleated RBC Nucleated RBC % (auto) Smear Tech's Comments PT INR VBG pH VBG pCO2 VBG pO2 VBG HCO3 VBG O2 Saturation VBG Base Excess Sodium Potassium Chloride Carbon Dioxide Anion Gap BUN Creatinine Estim Creat Clear Calc Estimated GFR POC Glucose > 600 H* Random Glucose Estimat Average Glucose Hemoglobin A1c % Lactic Acid 1.3 Calcium Phosphorus Magnesium Total Bilirubin Direct Bilirubin AST ALT Alkaline Phosphatase Total Creatine Kinase Troponin I High Sens Total Protein Albumin Beta HCG, Quant Urine Color Urine Appearance Urine pH Ur Specific [place] Urine Protein Urine Glucose (UA) Urine Ketones Urine Blood Urine Nitrite Ur Leukocyte Esterase Salicylates Urine Opiates Screen Acetaminophen Ur Barbiturates Screen Ur Phencyclidine Scrn Ur Amphetamines Screen U Benzodiazepines Scrn Urine Cocaine Screen U Marijuana (THC) Screen Ethyl Alcohol Acetone, Qual COVID-19 (BRENDA) Negative [employer] See Note 09/11/20 09/11/20 09/11/20 17:21 18:17 19:23 WBC RBC Hgb Hct MCV MCH MCHC RDW Plt Count MPV Immature Gran % (Auto) Neut % (Auto) Lymph % (Auto) [place] % (Auto) Eos % (Auto) Baso % (Auto) Lymph # (Auto) [place] # (Auto) Eos # (Auto) Baso # (Auto) Abs Immat Gran (auto) Absolute Neuts (auto) Absolute Nucleated RBC Nucleated RBC % (auto) Smear Tech's Comments PT INR VBG pH VBG pCO2 VBG pO2 VBG HCO3 VBG O2 Saturation VBG Base Excess Sodium Potassium Chloride Carbon Dioxide Anion Gap BUN Creatinine Estim Creat Clear Calc Estimated GFR POC Glucose 436 H* 372 H* 273 H Random Glucose Estimat Average Glucose Hemoglobin A1c % Lactic Acid Calcium Phosphorus Magnesium Total Bilirubin Direct Bilirubin AST ALT Alkaline Phosphatase Total Creatine Kinase Troponin I High Sens Total Protein Albumin Beta HCG, Quant Urine Color Urine Appearance Urine pH Ur Specific [place] Urine Protein Urine Glucose (UA) Urine Ketones Urine Blood Urine Nitrite Ur Leukocyte Esterase Salicylates Urine Opiates Screen Acetaminophen Ur Barbiturates Screen Ur Phencyclidine Scrn Ur Amphetamines Screen U Benzodiazepines Scrn Urine Cocaine Screen U Marijuana (THC) Screen Ethyl Alcohol Acetone, Qual COVID-19 (BRENDA) [employer] 09/11/20 09/11/20 09/11/20 20:01 20:01 20:31 WBC RBC Hgb Hct MCV MCH MCHC RDW Plt Count MPV Immature Gran % (Auto) Neut % (Auto) Lymph % (Auto) [place] % (Auto) Eos % (Auto) Baso % (Auto) Lymph # (Auto) [place] # (Auto) Eos # (Auto) Baso # (Auto) Abs Immat Gran (auto) Absolute Neuts (auto) Absolute Nucleated RBC Nucleated RBC % (auto) Smear Tech's Comments PT INR VBG pH VBG pCO2 VBG pO2 VBG HCO3 VBG O2 Saturation VBG Base Excess Sodium Potassium Chloride Carbon Dioxide Anion Gap BUN Creatinine Estim Creat Clear Calc Estimated GFR POC Glucose 202 H Random Glucose Estimat Average Glucose Hemoglobin A1c % Lactic Acid Calcium Phosphorus Magnesium Total Bilirubin Direct Bilirubin AST ALT Alkaline Phosphatase Total Creatine Kinase Troponin I High Sens Total Protein Albumin Beta HCG, Quant Urine Color YELLOW Urine Appearance HAZY Urine pH 5.5 Ur Specific [place] 1.020 Urine Protein NEG Urine Glucose (UA) 500 H Urine Ketones >=80 Urine Blood NEG Urine Nitrite NEG Ur Leukocyte Esterase NEG Salicylates Urine Opiates Screen POSITIVE H Acetaminophen Ur Barbiturates Screen Not Detected Ur Phencyclidine Scrn Not Detected Ur Amphetamines Screen Not Detected U Benzodiazepines Scrn Not Detected Urine Cocaine Screen POSITIVE H U Marijuana (THC) Screen Not Detected Ethyl Alcohol Acetone, Qual COVID-19 (BRENDA) COVID-19 Clin Com 09/11/20 09/11/20 09/11/20 20:55 20:57 21:25 WBC RBC Hgb Hct MCV MCH MCHC RDW Plt Count MPV Immature Gran % (Auto) Neut % (Auto) Lymph % (Auto) [place] % (Auto) Eos % (Auto) Baso % (Auto) Lymph # (Auto) [place] # (Auto) Eos # (Auto) Baso # (Auto) Abs Immat Gran (auto) Absolute Neuts (auto) Absolute Nucleated RBC Nucleated RBC % (auto) Smear Tech's Comments PT INR VBG pH 7.56 H VBG pCO2 31 VBG pO2 83 VBG HCO3 28 H VBG O2 Saturation 96.0 VBG Base Excess 6.3 Sodium 147 H Potassium 4.1 D Chloride 110 H D Carbon Dioxide 20 L Anion Gap 21 H BUN 22 H Creatinine 1.02 Estim Creat Clear Calc 58.7 Estimated GFR > 60 POC Glucose 146 H Random Glucose 178 H D Estimat Average Glucose Hemoglobin A1c % Lactic Acid Calcium 8.3 L D Phosphorus Magnesium Total Bilirubin Direct Bilirubin AST ALT Alkaline Phosphatase Total Creatine Kinase Troponin I High Sens Total Protein Albumin Beta HCG, Quant Urine Color Urine Appearance Urine pH Ur Specific [place] Urine Protein Urine Glucose (UA) Urine Ketones Urine Blood Urine Nitrite Ur Leukocyte Esterase Salicylates Urine Opiates Screen Acetaminophen Ur Barbiturates Screen Ur Phencyclidine Scrn Ur Amphetamines Screen U Benzodiazepines Scrn Urine Cocaine Screen U Marijuana (THC) Screen Ethyl Alcohol Acetone, Qual COVID-19 (BRENDA) [employer] 09/11/20 09/11/20 09/12/20 22:00 22:53 00:16 WBC RBC Hgb Hct MCV MCH MCHC RDW Plt Count MPV Immature Gran % (Auto) Neut % (Auto) Lymph % (Auto) [place] % (Auto) Eos % (Auto) Baso % (Auto) Lymph # (Auto) [place] # (Auto) Eos # (Auto) Baso # (Auto) Abs Immat Gran (auto) Absolute Neuts (auto) Absolute Nucleated RBC Nucleated RBC % (auto) Smear Tech's Comments PT INR VBG pH VBG pCO2 VBG pO2 VBG HCO3 VBG O2 Saturation VBG Base Excess Sodium 149 H Potassium 4.2 Chloride 110 H Carbon Dioxide 26 Anion Gap 17 BUN 25 H Creatinine 1.00 Estim Creat Clear Calc 59.8 Estimated GFR > 60 POC Glucose 156 H 125 H Random Glucose 128 H Estimat Average Glucose Hemoglobin A1c % Lactic Acid Calcium 8.1 L Phosphorus Magnesium Total Bilirubin Direct Bilirubin AST ALT Alkaline Phosphatase Total Creatine Kinase Troponin I High Sens Total Protein Albumin Beta HCG, Quant Urine Color Urine Appearance Urine pH Ur Specific [place] Urine Protein Urine Glucose (UA) Urine Ketones Urine Blood Urine Nitrite Ur Leukocyte Esterase Salicylates Urine Opiates Screen Acetaminophen Ur Barbiturates Screen Ur Phencyclidine Scrn Ur Amphetamines Screen U Benzodiazepines Scrn Urine Cocaine Screen U Marijuana (THC) Screen Ethyl Alcohol Acetone, Qual COVID-19 (BRENDA) [employer] 09/12/20 09/12/20 09/12/20 00:38 01:21 03:15 WBC RBC Hgb Hct MCV MCH MCHC RDW Plt Count MPV Immature Gran % (Auto) Neut % (Auto) Lymph % (Auto) [place] % (Auto) Eos % (Auto) Baso % (Auto) Lymph # (Auto) [place] # (Auto) Eos # (Auto) Baso # (Auto) Abs Immat Gran (auto) Absolute Neuts (auto) Absolute Nucleated RBC Nucleated RBC % (auto) Smear Tech's Comments PT INR VBG pH VBG pCO2 VBG pO2 VBG HCO3 VBG O2 Saturation VBG Base Excess Sodium Potassium Chloride Carbon Dioxide Anion Gap BUN Creatinine Estim Creat Clear Calc Estimated GFR POC Glucose 135 H 134 H 176 H Random Glucose Estimat Average Glucose Hemoglobin A1c % Lactic Acid Calcium Phosphorus Magnesium Total Bilirubin Direct Bilirubin AST ALT Alkaline Phosphatase Total Creatine Kinase Troponin I High Sens Total Protein Albumin Beta HCG, Quant Urine Color Urine Appearance Urine pH Ur Specific [place] Urine Protein Urine Glucose (UA) Urine Ketones Urine Blood Urine Nitrite Ur Leukocyte Esterase Salicylates Urine Opiates Screen Acetaminophen Ur Barbiturates Screen Ur Phencyclidine Scrn Ur Amphetamines Screen U Benzodiazepines Scrn Urine Cocaine Screen U Marijuana (THC) Screen Ethyl Alcohol Acetone, Qual COVID-19 (BRENDA) COVID-19 [employer] Com 09/12/20 09/12/20 09/12/20 05:09 05:42 06:37 WBC 29.1 H RBC 3.45 L Hgb 10.1 L Hct 29.3 L MCV 84.9 D MCH 29.3 MCHC 34.5 RDW 18.1 H Plt Count 241 D MPV 9.4 Immature Gran % (Auto) 0.6 H Neut % (Auto) 85.6 H Lymph % (Auto) 9.5 L [place] % (Auto) 4.1 Eos % (Auto) 0.0 Baso % (Auto) 0.2 Lymph # (Auto) 2.8 [place] # (Auto) 1.2 Eos # (Auto) 0.0 Baso # (Auto) 0.1 Abs Immat Gran (auto) 0.18 H Absolute Neuts (auto) 24.9 H Absolute Nucleated RBC 0.000 Nucleated RBC % (auto) 0.0 Smear Tech's Comments VERIFIED PT INR VBG pH VBG pCO2 VBG pO2 VBG HCO3 VBG O2 Saturation VBG Base Excess Sodium 145 Potassium 3.5 Chloride 105 Carbon Dioxide 24 Anion Gap 20 BUN 25 H Creatinine 1.02 Estim Creat Clear Calc 58.7 Estimated GFR > 60 POC Glucose 229 H Random Glucose 250 H D Estimat Average Glucose Hemoglobin A1c % Lactic Acid Calcium 7.9 L Phosphorus 2.3 L Magnesium 2.1 Total Bilirubin Direct Bilirubin AST ALT Alkaline Phosphatase Total Creatine Kinase Troponin I High Sens Total Protein Albumin Beta HCG, Quant Urine Color Urine Appearance Urine pH Ur Specific [place] Urine Protein Urine Glucose (UA) Urine Ketones Urine Blood Urine Nitrite Ur Leukocyte Esterase Salicylates Urine Opiates Screen Acetaminophen Ur Barbiturates Screen Ur Phencyclidine Scrn Ur Amphetamines Screen U Benzodiazepines Scrn Urine Cocaine Screen U Marijuana (THC) Screen Ethyl Alcohol Acetone, Qual COVID-19 (BRENDA) COVID-19 Fitfully 09/12/20 09/12/20 09/12/20 06:37 06:41 07:18 WBC RBC Hgb Hct MCV MCH MCHC RDW Plt Count MPV Immature Gran % (Auto) Neut % (Auto) Lymph % (Auto) [place] % (Auto) Eos % (Auto) Baso % (Auto) Lymph # (Auto) [place] # (Auto) Eos # (Auto) Baso # (Auto) Abs Immat Gran (auto) Absolute Neuts (auto) Absolute Nucleated RBC Nucleated RBC % (auto) Smear Tech's Comments PT INR VBG pH 7.49 H VBG pCO2 38 VBG pO2 124 VBG HCO3 30 H VBG O2 Saturation 99.0 VBG Base Excess 6.4 Sodium Potassium Chloride Carbon Dioxide Anion Gap BUN Creatinine Estim Creat Clear Calc Estimated GFR POC Glucose 385 H* Random Glucose Estimat Average Glucose 315 Hemoglobin A1c % 12.6 Lactic Acid Calcium Phosphorus Magnesium Total Bilirubin Direct Bilirubin AST ALT Alkaline Phosphatase Total Creatine Kinase Troponin I High Sens Total Protein Albumin Beta HCG, Quant Urine Color Urine Appearance Urine pH Ur Specific [place] Urine Protein Urine Glucose (UA) Urine Ketones Urine Blood Urine Nitrite Ur Leukocyte Esterase Salicylates Urine Opiates Screen Acetaminophen Ur Barbiturates Screen Ur Phencyclidine Scrn Ur Amphetamines Screen U Benzodiazepines Scrn Urine Cocaine Screen U Marijuana (THC) Screen Ethyl Alcohol Acetone, Qual COVID-19 (BRENDA) COVID-19 Fitfully 09/12/20 07:21 WBC RBC Hgb Hct MCV MCH MCHC RDW Plt Count MPV Immature Gran % (Auto) Neut % (Auto) Lymph % (Auto) [place] % (Auto) Eos % (Auto) Baso % (Auto) Lymph # (Auto) [place] # (Auto) Eos # (Auto) Baso # (Auto) Abs Immat Gran (auto) Absolute Neuts (auto) Absolute Nucleated RBC Nucleated RBC % (auto) Smear Tech's Comments PT INR VBG pH VBG pCO2 VBG pO2 VBG HCO3 VBG O2 Saturation VBG Base Excess Sodium Potassium Chloride Carbon Dioxide Anion Gap BUN Creatinine Estim Creat Clear Calc Estimated GFR POC Glucose 314 H Random Glucose Estimat Average Glucose Hemoglobin A1c % Lactic Acid Calcium Phosphorus Magnesium Total Bilirubin Direct Bilirubin AST ALT Alkaline Phosphatase Total Creatine Kinase Troponin I High Sens Total Protein Albumin Beta HCG, Quant Urine Color Urine Appearance Urine pH Ur Specific [place] Urine Protein Urine Glucose (UA) Urine Ketones Urine Blood Urine Nitrite Ur Leukocyte Esterase Salicylates Urine Opiates Screen Acetaminophen Ur Barbiturates Screen Ur Phencyclidine Scrn Ur Amphetamines Screen U Benzodiazepines Scrn Urine Cocaine Screen U Marijuana (THC) Screen Ethyl Alcohol Acetone, Qual COVID-19 (BRENDA) COVID-19 Clin Com Progress Note: A&P Assessment and plan (1) Polysubstance abuse: Status: Acute (2) Acute renal failure: Status: Acute (3) Opioid use disorder, severe, dependence: Status: Acute (4) Cocaine use disorder, moderate, dependence: Status: Acute (5) Leukocytosis: Status: Acute (6) RUDI (acute kidney injury): Status: Acute (7) DKA (diabetic ketoacidoses): Status: Acute (8) Cheilosis: Status: Acute (9) Endocarditis: Status: Acute
[2020-09-12] MEDS: KCl 20 mEq in 0.45% Sod 20 MEQ/1,000 ML IV.SOLN 80 MEQ IVCONT ×2 (08:12→20:58)
[2020-09-12] MEDS: Insulin Glargine,Hum.rec.anlog 100 UNIT/ML 10 ML VIAL 30 UNIT SUBCUT (08:15)
--- NOTE | 2020-09-12 10:13 | P.CDIC_ITS ---
CDI Concurrent Query Service Date: 09/12/20 Documentation Clarification: Please clarify if you are treating a proba ble/suspected/likely or confirmed: Sepsis, present on admission No Sepsis PLEASE DO NOT DELETE/MODIFY EXISTING CONTENT Additional information is needed in order to code to the highest accuracy and appropriate Severity of Illness (SOI). Please clarify the information noted below in your progress notes and discharge summary. Risk Factors/Clinical Indicators/Treatments 24 year old female admitted with Acute leukocytosis, RUDI, DKA, Cocaine and Opioid Dependence, Acute Tricuspid Endocarditis, Acute Cheilosis, Hyperkalemia Hyponatremia Blood culture pending WBC 26.7 T 97.5, P 135, R 20, BP 114/65, SAT 100% LA 1.3 Received empiric antibiotic CDS: Alayna Tovar RN Contact Number: [phone] Please Review the information above and exercise your independent professional judgment in responding to the query. If you concur, pleas document in the PROGRESS NOTES and DISCHARGE SUMMARY. If you do not agree with the query, please document in the query above. THIS QUERY IS PART OF THE PERMANENT MEDICAL RECORD
--- NOTE | 2020-09-12 10:24 | P.CDIC_ITS ---
CDI Concurrent Query Service Date: 09/12/20 Documentation Clarification: Please clarify if you are treating a proba ble/suspected/likely or confirmed: Mild Protein Calorie Malnutrition Moderate Protein Calorie Malnutrition Severe Protein Calorie Malnutrition PLEASE DO NOT DELETE/MODIFY EXISTING CONTENT Additional information is needed in order to code to the highest accuracy and appropriate Severity of Illness (SOI). Please clarify the information noted below in your progress notes and discharge summary. Risk Factors/Clinical Indicators/Treatments 24 year old female admitted with Acute Leukocytosis, RUDI, DKA, Polysubstance Abuse, Acute Cheilosis, Hyponatremia, Hyperkalemia HT. 5 feet WT. 43 kg BMI 18.5 Per MD note, looks cachectic No Nutrition Assessment seen in EMR Total protein 7.2, Albumin 3.8 CDS: Alayna Tovar RN Contact Number: [phone] Please Review the information above and exercise your independent professional judgment in responding to the query. If you concur, pleas document in the PROGRESS NOTES and DISCHARGE SUMMARY. If you do not agree with the query, please document in the query above. THIS QUERY IS PART OF THE PERMANENT MEDICAL RECORD
[2020-09-12 11:22] LABS: Glucose, Whole Blood 306 mg/dL (60-115)
--- NOTE | 2020-09-12 11:24 | MHC.IC ---
Per discussion with RN caring for patient this shift, pt potentially has scabies. Per ED note, pt not fully treated with permethrin due uncooperative behaviors. Discussed this with Dr Cuellar to ? attempt to re-treat today. Per MD, unable to give another dose of permethrin for 1 week. Patient needs to remain on contact precautions. Disccussed this situation and need for continued contact precautions with Catherine BASS.
--- NOTE | 2020-09-12 11:47 | MHC.CM.PN ---
Pt readmitted for DKA and electrolyte derangement secondary to non compliance with management. Pt is well known to [facility] and CM. Attempted to meet with pt to discuss d/c plans - pt lying in bed calling out for gingerale. Pt declining to answer CM questions and at one point, growled at CM in response to inquiries. Pt then began to vomit and attempts at assessment were stopped. Pt has had many readmissions d/t DKA and under treated endocarditis. She is diabetic, homeless and has a polysubstance active hx. Her appearance suggests self care negligence: cachetic, +scabies, poor dentition. Pt does not have family - both parents are and her sister is estranged. She had 'aged out' of a live in program for adolescents with emotional/behavioral issues per review of previous admission and essentially has no supports. Prior visits note a possible male significant other but this has not been verified. Pt appears to be making decisions that are harmful and placing her in imminent danger for serious health consequences including . CM director has been assisting with ? section 35 initiation - pt will be transferred to the medical floor today as she no longer requires critical care. CM will follow for further d/c needs
--- NOTE | 2020-09-12 13:57 | MHC.CLN ---
RE: CONSULT PT IS SEVERELY MALNOURISHED PT TRIGGERS FOR 10% SIGNIFICANT WT LOSS X 3 WEEKS PREVIOUS ADMISSION WT 106# (08/18/20); PT IS HOMELESS AND LIVES ON STREETS. PT IS NONCOMPLIANT WITH ALL ASPECTS OF CARE INCLUDING MEDS/HYGIENE. POOR PO INTAKE R/T DRUG ADDICTION AND SEVERELY DEPLETED SUBCUTANEOUS FAT AND MUSCLE MASS WITH A BMI 18.5 DIET RX: REGULAR-RECOMMEND 1500DM DIET- WILL PROMOTE WT GAIN START GLUCERNA BID TO INCREASE KCALS SUPPLEMENT TO PROVIDE [id number], 20G PROTEIN MONITOR PO INTAKE AND ACCEPTANCE OF SUPPLEMENT
--- NOTE | 2020-09-12 14:57 | P.EN_ITS ---
Event Note Date of Service: 09/12/20 Event Note: d/w [facility] cardiac surgery, needs cultures and repeat echo before further consideration
--- NOTE | 2020-09-12 14:57 | PM.EVENT ---
Event Note Date of Service: 09/12/20 Event Note: d/w [facility] cardiac surgery, needs cultures and repeat echo before further consideration
[2020-09-12 16:38] LABS: Glucose, Whole Blood 88 mg/dL (60-115)
[2020-09-12 16:38] LABS: Glucose, Whole Blood 87 mg/dL (60-115)
[2020-09-12] MEDS: vancomycin HCL 1,250 MG in 0.9 % Sodium Chloride 250 ML 166.67 MG IV (17:42)
[2020-09-12 20:57] LABS: Glucose, Whole Blood 135 mg/dL (60-115)
[2020-09-13 03:48] VITALS: BP 114/65; PULSE 65; RESP 18; TEMP 36.3; O2SAT 98
[2020-09-13 07:55] VITALS: BP 139/92; PULSE 93; RESP 18; TEMP 36.1; O2SAT 100
[2020-09-13 08:01] LABS: Glucose, Whole Blood 241 mg/dL (60-115)
[2020-09-13] MEDS: Insulin Glargine,Hum.rec.anlog 100 UNIT/ML 10 ML VIAL 30 UNIT SUBCUT (08:02)
[2020-09-13] MEDS: Insulin Lispro 100 UNIT/ML 3 ML VIAL SUBCUT (08:03)
--- NOTE | 2020-09-13 08:30 | PC.NURSE ---
Catheter removed at 0830 without issue. tubing intact. pt tolerated well.
[2020-09-13] MEDS: KCl 20 mEq in 0.45% Sod 20 MEQ/1,000 ML IV.SOLN 80 MEQ IVCONT (09:41)
--- NOTE | 2020-09-13 11:22 | PM.DS ---
DS: Providers Provider Date of Service: 09/13/20 Date of admission: 09/11/20 17:07 Primary care physician: Alix Padilla MD Consults: 09/12/20 13:06 Consult to Psychiatry Routine Consulting Provider: John Bishop Reason for consultation: ? ability to make section 12 for passive suicidality 09/12/20 17:08 Consult to Infectious Diseases Routine Consulting Provider: Gricelda Rivero Reason for consultation: endocarditis DS: Diagnosis Discharge Diagnosis (1) Polysubstance abuse: Status: Acute (2) Acute renal failure: Status: Acute (3) Opioid use disorder, severe, dependence: Status: Acute (4) Cocaine use disorder, moderate, dependence: Status: Acute (5) Leukocytosis: Status: Acute (6) RUDI (acute kidney injury): Status: Acute (7) DKA (diabetic ketoacidoses): Status: Acute (8) Cheilosis: Status: Acute (9) Endocarditis: Status: Acute Problem details: probable MRSA or MSSA Possible bartonella DS: Medications Discharge Medications Home Medications: Home Medications Medication Instructions Recorded Confirmed insulin regular human [Novolin R 1 sliding scale dose SUBCUT 08/05/20 08/17/20 Regular U-100 Insuln] USEASDIRECTD DS: Summary Hospital Course Hospital Course: Patient was admitted to ICU for metabolic encephalopathy, DKA, acute kidney injury. She was treated with fluids and insulin. Her anion gap closed, encephalopathy resolved, her acute kidney injury resolved. She was downgraded to medical floor. On previous admission she was noted to have a very large tricuspid vegetation. On this admission her CT showed likely embolization to along with 1 cm abscess. Not febrile here, her blood cultures are not growing anything so far. Plan was to repeat echocardiogram for to assess state of vegetation, to be assessed by Infectious Disease, possible transfer for cardiothoracic surgery. However, patient wanted to leave against medical advice. Patient demonstrated full understanding of her medical condition, she was able to explain the vegetation on her and the danger of frequent DKA, she was able to explain that we were worried that she is at risk for if she did not comply with treatment. There was some concern of passive suicidality, however, she was assessed by Psychiatry and clearly demonstrated that she was not suicidal and wanted to leave purely to use heroin. She was offered treatment for opiate use disorder however, she has refused. Time Spent with Patient Time attestation: Total time spent providing and/or coordinating discharge services: Discharge coordination time: Greater than 30 minutes Quality: Stroke Does the patient have a stroke diagnosis?: No Physical Exam Vital Signs: Vital Signs: Last Vital Signs Temp 96.9 F 09/13/20 07:55 Pulse 93 09/13/20 07:55 Resp 18 09/13/20 07:55 BP 139/92 H 09/13/20 07:55 Pulse Ox 100 09/13/20 07:55 Body Mass Index 18.5 General: AO X 3, ill-appearing, underweight, multiple skin lesions Resp: CTA bilateral CVS: S1,S2,RRR GI: soft, non tender, non distended Neuro: motor grossly intact Psych: appropriate affect DS: Data Data Completed and Pending Completed studies during hospitalization [Text1]: Procedures Drainage of Neck Skin, External Approach (08/17/20) Insertion of Infusion Device into Superior Vena Cava, Percutaneous Approach (08/06/20) Labs on day of discharge: Laboratory Results - last 24 hr 09/12/20 09/12/20 09/12/20 11:19 16:31 16:35 POC Glucose 306 H 87 88 09/12/20 09/13/20 20:41 07:54 POC Glucose 135 H 241 H Preliminary micro results at discharge 09/11/20 13:00 Blood Culture - Preliminary Blood - Venous No growth after 24 hours. 09/11/20 12:59 Blood Culture - Preliminary Blood - Venous No growth after 24 hours. Discharge Plan Discharge Patient Disposition: Left Against Medical Advice Discharge Diagnosis: dka, endocarditis Referrals: Alix Padilla MD [Primary Care Provider] - 1 Week Discharge Medications: No Action Novolin R Regular U-100 Insuln 100 unit/mL Solution 1 sliding scale dose SUBCUT USEASDIRECTD RF: 0 Discharge Orders: Discharge Order (Routine); Ordered 09/13/20 Ordered By: Magno Johns Care Plan Goals: treat endocarditis, avoid Health Concerns: ivda, frequent DKA, endocarditis, poor compliance Plan of Treatment: stay in hospital for treatement Assessment: see above Discharge Date/Time: 09/13/20 11:37
--- NOTE | 2020-09-13 11:29 | P.CNPS_ITS ---
History of Present Illness Date of Service: t Chief Complaint: DKA Reason for Consult: Assess capacity to sign AMA Requesting physician: Magno Johns Discussed with referring provider: Yes Sources of Information: patient interviewed, chart reviewed and crisis/core team assessment reviewed HPI Narrative: The patient is a 24 year old female with opioid use di sorder severe, cocaine use disorder, DM type I, endocarditis and other medical problems. She was initially admitted to ICU due to DKA since she has not taken care of her DM treatment. She has signed AMA several times in the last months for similar presentations, mostly due to cravings to use drugs. The patient was alert and oriented, she was able to repeat and understand her medical problems and the risk of not treating it, she was fully aware that she could or have severe sequelae. She stated that if she gets worse, she would come back, she stated that she has social support. During the interview, the patient admitted that the reason to leave was her drug cravings. I offered her treatment of opioid dependence with Methadone but she refused any type of treatment. Past Psychiatric History: Never admitted, no formal psychiatric treatment for substance abuse Medical Evaluation Reviewed: Yes [facility] Medical History Anxiety Cocaine abuse Diabetes mellitus type 1 Endocarditis Heroin abuse Family History: Denies Substance History: Refused to elaborate but she abuses heroin and cocaine Diagnostics Vital Signs (24Hr): Vital Signs - 24 hr 09/12/20 12:00 09/12/20 13:00 09/12/20 14:00 Temperature Pulse Rate 72 70 76 Respiratory Rate 28 H 27 H 18 Blood Pressure 123/81 114/84 130/79 Pulse Oximetry 100 09/12/20 15:00 09/12/20 16:00 09/12/20 17:30 Temperature 98.2 F Pulse Rate 91 69 91 Respiratory Rate 18 22 H 15 Blood Pressure 128/89 128/89 127/71 Pulse Oximetry 100 100 09/12/20 19:43 09/12/20 23:59 09/13/20 03:48 Temperature 98.5 F 98.7 F 97.4 F Pulse Rate 98 65 Respiratory Rate 16 19 18 Blood Pressure 127/76 122/70 114/65 Pulse Oximetry 98 97 98 09/13/20 07:55 Temperature 96.9 F Pulse Rate 93 Respiratory Rate 18 Blood Pressure 139/92 H Pulse Oximetry 100 Body Mass Index 18.5 Labs Results: 09/12/20 06:37 09/12/20 05:42 Labs: Laboratory Results - last 48 hr 09/11/20 09/11/20 09/11/20 12:30 12:44 12:44 WBC 26.7 H RBC 3.72 L Hgb 10.8 L Hct 34.8 L MCV 93.5 MCH 29.0 MCHC 31.0 RDW 18.2 H Plt Count 427 H D MPV 10.5 Immature Gran % (Auto) 1.0 H Neut % (Auto) 85.4 H Lymph % (Auto) 8.3 L [place] % (Auto) 5.2 Eos % (Auto) 0.0 Baso % (Auto) 0.1 Lymph # (Auto) 2.2 [place] # (Auto) 1.4 H Eos # (Auto) 0.0 Baso # (Auto) 0.0 Abs Immat Gran (auto) 0.26 H Absolute Neuts (auto) 22.8 H Absolute Nucleated RBC 0.000 Nucleated RBC % (auto) 0.0 Smear Tech's Comments VERIFIED PT INR VBG pH VBG pCO2 VBG pO2 VBG HCO3 VBG O2 Saturation VBG Base Excess Sodium 132 L Potassium 5.2 H Chloride 82 L D Carbon Dioxide 8 L* D Anion Gap 47 H BUN 38 H Creatinine 2.15 H Estim Creat Clear Calc 28.5 Estimated GFR 29 POC Glucose > 600 H* Random Glucose 1273 H* Estimat Average Glucose Hemoglobin A1c % Lactic Acid Calcium 9.2 D Phosphorus Magnesium Total Bilirubin Direct Bilirubin AST ALT Alkaline Phosphatase Total Creatine Kinase Troponin I High Sens Total Protein Albumin Beta HCG, Quant < 2 Urine Color Urine Appearance Urine pH Ur Specific [place] Urine Protein Urine Glucose (UA) Urine Ketones Urine Blood Urine Nitrite Ur Leukocyte Esterase Salicylates Urine Opiates Screen Acetaminophen Ur Barbiturates Screen Ur Phencyclidine Scrn Ur Amphetamines Screen U Benzodiazepines Scrn Urine Cocaine Screen U Marijuana (THC) Screen Ethyl Alcohol Acetone, Qual Large H COVID-19 (BRENDA) COVID-19 Clin Com 09/11/20 09/11/20 09/11/20 12:44 12:44 12:44 WBC RBC Hgb Hct MCV MCH MCHC RDW Plt Count MPV Immature Gran % (Auto) Neut % (Auto) Lymph % (Auto) [place] % (Auto) Eos % (Auto) Baso % (Auto) Lymph # (Auto) [place] # (Auto) Eos # (Auto) Baso # (Auto) Abs Immat Gran (auto) Absolute Neuts (auto) Absolute Nucleated RBC Nucleated RBC % (auto) Smear Tech's Comments PT 12.5 INR 1.1 VBG pH VBG pCO2 VBG pO2 VBG HCO3 VBG O2 Saturation VBG Base Excess Sodium Potassium Chloride Carbon Dioxide Anion Gap BUN Creatinine Estim Creat Clear Calc Estimated GFR POC Glucose Random Glucose Estimat Average Glucose Hemoglobin A1c % Lactic Acid Calcium Phosphorus Magnesium 3.1 H Total Bilirubin 0.5 Direct Bilirubin 0.3 AST 42 H D ALT 75 H Alkaline Phosphatase 212 H D Total Creatine Kinase 52 D Troponin I High Sens 3.5 Total Protein 7.2 D Albumin 3.8 D Beta HCG, Quant Urine Color Urine Appearance Urine pH Ur Specific [place] Urine Protein Urine Glucose (UA) Urine Ketones Urine Blood Urine Nitrite Ur Leukocyte Esterase Salicylates < 5.0 L Urine Opiates Screen Acetaminophen < 1 Ur Barbiturates Screen Ur Phencyclidine Scrn Ur Amphetamines Screen U Benzodiazepines Scrn Urine Cocaine Screen U Marijuana (THC) Screen Ethyl Alcohol Acetone, Qual COVID-19 (BRENDA) COVID-19 Clin Com 09/11/20 09/11/20 09/11/20 12:44 12:50 14:48 WBC RBC Hgb Hct MCV MCH MCHC RDW Plt Count MPV Immature Gran % (Auto) Neut % (Auto) Lymph % (Auto) [place] % (Auto) Eos % (Auto) Baso % (Auto) Lymph # (Auto) [place] # (Auto) Eos # (Auto) Baso # (Auto) Abs Immat Gran (auto) Absolute Neuts (auto) Absolute Nucleated RBC Nucleated RBC % (auto) Smear Tech's Comments PT INR VBG pH 7.20 L* VBG pCO2 23 VBG pO2 112 VBG HCO3 9 L VBG O2 Saturation 96.0 VBG Base Excess -16.6 Sodium Potassium Chloride Carbon Dioxide Anion Gap BUN Creatinine Estim Creat Clear Calc Estimated GFR POC Glucose > 600 H* Random Glucose Estimat Average Glucose Hemoglobin A1c % Lactic Acid Calcium Phosphorus Magnesium Total Bilirubin Direct Bilirubin AST ALT Alkaline Phosphatase Total Creatine Kinase Troponin I High Sens Total Protein Albumin Beta HCG, Quant Urine Color Urine Appearance Urine pH Ur Specific [place] Urine Protein Urine Glucose (UA) Urine Ketones Urine Blood Urine Nitrite Ur Leukocyte Esterase Salicylates Urine Opiates Screen Acetaminophen Ur Barbiturates Screen Ur Phencyclidine Scrn Ur Amphetamines Screen U Benzodiazepines Scrn Urine Cocaine Screen U Marijuana (THC) Screen Ethyl Alcohol < 10 Acetone, Qual COVID-19 (BRENDA) COVID-19 [employer] 09/11/20 09/11/20 09/11/20 15:46 15:46 15:58 WBC RBC Hgb Hct MCV MCH MCHC RDW Plt Count MPV Immature Gran % (Auto) Neut % (Auto) Lymph % (Auto) [place] % (Auto) Eos % (Auto) Baso % (Auto) Lymph # (Auto) [place] # (Auto) Eos # (Auto) Baso # (Auto) Abs Immat Gran (auto) Absolute Neuts (auto) Absolute Nucleated RBC Nucleated RBC % (auto) Smear Tech's Comments PT INR VBG pH VBG pCO2 VBG pO2 VBG HCO3 VBG O2 Saturation VBG Base Excess Sodium Potassium Chloride Carbon Dioxide Anion Gap BUN Creatinine Estim Creat Clear Calc Estimated GFR POC Glucose > 600 H* Random Glucose Estimat Average Glucose Hemoglobin A1c % Lactic Acid 1.3 Calcium Phosphorus Magnesium Total Bilirubin Direct Bilirubin AST ALT Alkaline Phosphatase Total Creatine Kinase Troponin I High Sens Total Protein Albumin Beta HCG, Quant Urine Color Urine Appearance Urine pH Ur Specific [place] Urine Protein Urine Glucose (UA) Urine Ketones Urine Blood Urine Nitrite Ur Leukocyte Esterase Salicylates Urine Opiates Screen Acetaminophen Ur Barbiturates Screen Ur Phencyclidine Scrn Ur Amphetamines Screen U Benzodiazepines Scrn Urine Cocaine Screen U Marijuana (THC) Screen Ethyl Alcohol Acetone, Qual COVID-19 (BRENDA) Negative COVID-19 [employer] See Note 09/11/20 09/11/20 09/11/20 17:21 18:17 19:23 WBC RBC Hgb Hct MCV MCH MCHC RDW Plt Count MPV Immature Gran % (Auto) Neut % (Auto) Lymph % (Auto) [place] % (Auto) Eos % (Auto) Baso % (Auto) Lymph # (Auto) [place] # (Auto) Eos # (Auto) Baso # (Auto) Abs Immat Gran (auto) Absolute Neuts (auto) Absolute Nucleated RBC Nucleated RBC % (auto) Smear Tech's Comments PT INR VBG pH VBG pCO2 VBG pO2 VBG HCO3 VBG O2 Saturation VBG Base Excess Sodium Potassium Chloride Carbon Dioxide Anion Gap BUN Creatinine Estim Creat Clear Calc Estimated GFR POC Glucose 436 H* 372 H* 273 H Random Glucose Estimat Average Glucose Hemoglobin A1c % Lactic Acid Calcium Phosphorus Magnesium Total Bilirubin Direct Bilirubin AST ALT Alkaline Phosphatase Total Creatine Kinase Troponin I High Sens Total Protein Albumin Beta HCG, Quant Urine Color Urine Appearance Urine pH Ur Specific [place] Urine Protein Urine Glucose (UA) Urine Ketones Urine Blood Urine Nitrite Ur Leukocyte Esterase Salicylates Urine Opiates Screen Acetaminophen Ur Barbiturates Screen Ur Phencyclidine Scrn Ur Amphetamines Screen U Benzodiazepines Scrn Urine Cocaine Screen U Marijuana (THC) Screen Ethyl Alcohol Acetone, Qual COVID-19 (BRENDA) [employer] 09/11/20 09/11/20 09/11/20 20:01 20:01 20:31 WBC RBC Hgb Hct MCV MCH MCHC RDW Plt Count MPV Immature Gran % (Auto) Neut % (Auto) Lymph % (Auto) [place] % (Auto) Eos % (Auto) Baso % (Auto) Lymph # (Auto) [place] # (Auto) Eos # (Auto) Baso # (Auto) Abs Immat Gran (auto) Absolute Neuts (auto) Absolute Nucleated RBC Nucleated RBC % (auto) Smear Tech's Comments PT INR VBG pH VBG pCO2 VBG pO2 VBG HCO3 VBG O2 Saturation VBG Base Excess Sodium Potassium Chloride Carbon Dioxide Anion Gap BUN Creatinine Estim Creat Clear Calc Estimated GFR POC Glucose 202 H Random Glucose Estimat Average Glucose Hemoglobin A1c % Lactic Acid Calcium Phosphorus Magnesium Total Bilirubin Direct Bilirubin AST ALT Alkaline Phosphatase Total Creatine Kinase Troponin I High Sens Total Protein Albumin Beta HCG, Quant Urine Color YELLOW Urine Appearance HAZY Urine pH 5.5 Ur Specific [place] 1.020 Urine Protein NEG Urine Glucose (UA) 500 H Urine Ketones >=80 Urine Blood NEG Urine Nitrite NEG Ur Leukocyte Esterase NEG Salicylates Urine Opiates Screen POSITIVE H Acetaminophen Ur Barbiturates Screen Not Detected Ur Phencyclidine Scrn Not Detected Ur Amphetamines Screen Not Detected U Benzodiazepines Scrn Not Detected Urine Cocaine Screen POSITIVE H U Marijuana (THC) Screen Not Detected Ethyl Alcohol Acetone, Qual COVID-19 (BRENDA) COVID-19 [employer] 09/11/20 09/11/20 09/11/20 20:55 20:57 21:25 WBC RBC Hgb Hct MCV MCH MCHC RDW Plt Count MPV Immature Gran % (Auto) Neut % (Auto) Lymph % (Auto) [place] % (Auto) Eos % (Auto) Baso % (Auto) Lymph # (Auto) [place] # (Auto) Eos # (Auto) Baso # (Auto) Abs Immat Gran (auto) Absolute Neuts (auto) Absolute Nucleated RBC Nucleated RBC % (auto) Smear Tech's Comments PT INR VBG pH 7.56 H VBG pCO2 31 VBG pO2 83 VBG HCO3 28 H VBG O2 Saturation 96.0 VBG Base Excess 6.3 Sodium 147 H Potassium 4.1 D Chloride 110 H D Carbon Dioxide 20 L Anion Gap 21 H BUN 22 H Creatinine 1.02 Estim Creat Clear Calc 58.7 Estimated GFR > 60 POC Glucose 146 H Random Glucose 178 H D Estimat Average Glucose Hemoglobin A1c % Lactic Acid Calcium 8.3 L D Phosphorus Magnesium Total Bilirubin Direct Bilirubin AST ALT Alkaline Phosphatase Total Creatine Kinase Troponin I High Sens Total Protein Albumin Beta HCG, Quant Urine Color Urine Appearance Urine pH Ur Specific [place] Urine Protein Urine Glucose (UA) Urine Ketones Urine Blood Urine Nitrite Ur Leukocyte Esterase Salicylates Urine Opiates Screen Acetaminophen Ur Barbiturates Screen Ur Phencyclidine Scrn Ur Amphetamines Screen U Benzodiazepines Scrn Urine Cocaine Screen U Marijuana (THC) Screen Ethyl Alcohol Acetone, Qual COVID-19 (BRENDA) COVID-19 Clin Com 09/11/20 09/11/20 09/12/20 22:00 22:53 00:16 WBC RBC Hgb Hct MCV MCH MCHC RDW Plt Count MPV Immature Gran % (Auto) Neut % (Auto) Lymph % (Auto) [place] % (Auto) Eos % (Auto) Baso % (Auto) Lymph # (Auto) [place] # (Auto) Eos # (Auto) Baso # (Auto) Abs Immat Gran (auto) Absolute Neuts (auto) Absolute Nucleated RBC Nucleated RBC % (auto) Smear Tech's Comments PT INR VBG pH VBG pCO2 VBG pO2 VBG HCO3 VBG O2 Saturation VBG Base Excess Sodium 149 H Potassium 4.2 Chloride 110 H Carbon Dioxide 26 Anion Gap 17 BUN 25 H Creatinine 1.00 Estim Creat Clear Calc 59.8 Estimated GFR > 60 POC Glucose 156 H 125 H Random Glucose 128 H Estimat Average Glucose Hemoglobin A1c % Lactic Acid Calcium 8.1 L Phosphorus Magnesium Total Bilirubin Direct Bilirubin AST ALT Alkaline Phosphatase Total Creatine Kinase Troponin I High Sens Total Protein Albumin Beta HCG, Quant Urine Color Urine Appearance Urine pH Ur Specific [place] Urine Protein Urine Glucose (UA) Urine Ketones Urine Blood Urine Nitrite Ur Leukocyte Esterase Salicylates Urine Opiates Screen Acetaminophen Ur Barbiturates Screen Ur Phencyclidine Scrn Ur Amphetamines Screen U Benzodiazepines Scrn Urine Cocaine Screen U Marijuana (THC) Screen Ethyl Alcohol Acetone, Qual COVID-19 (BRENDA) COVID-19 [employer] 09/12/20 09/12/20 09/12/20 00:38 01:21 03:15 WBC RBC Hgb Hct MCV MCH MCHC RDW Plt Count MPV Immature Gran % (Auto) Neut % (Auto) Lymph % (Auto) [place] % (Auto) Eos % (Auto) Baso % (Auto) Lymph # (Auto) [place] # (Auto) Eos # (Auto) Baso # (Auto) Abs Immat Gran (auto) Absolute Neuts (auto) Absolute Nucleated RBC Nucleated RBC % (auto) Smear Tech's Comments PT INR VBG pH VBG pCO2 VBG pO2 VBG HCO3 VBG O2 Saturation VBG Base Excess Sodium Potassium Chloride Carbon Dioxide Anion Gap BUN Creatinine Estim Creat Clear Calc Estimated GFR POC Glucose 135 H 134 H 176 H Random Glucose Estimat Average Glucose Hemoglobin A1c % Lactic Acid Calcium Phosphorus Magnesium Total Bilirubin Direct Bilirubin AST ALT Alkaline Phosphatase Total Creatine Kinase Troponin I High Sens Total Protein Albumin Beta HCG, Quant Urine Color Urine Appearance Urine pH Ur Specific [place] Urine Protein Urine Glucose (UA) Urine Ketones Urine Blood Urine Nitrite Ur Leukocyte Esterase Salicylates Urine Opiates Screen Acetaminophen Ur Barbiturates Screen Ur Phencyclidine Scrn Ur Amphetamines Screen U Benzodiazepines Scrn Urine Cocaine Screen U Marijuana (THC) Screen Ethyl Alcohol Acetone, Qual COVID-19 (BRENDA) COVID-19 [employer] 09/12/20 09/12/20 09/12/20 05:09 05:42 06:37 WBC 29.1 H RBC 3.45 L Hgb 10.1 L Hct 29.3 L MCV 84.9 D MCH 29.3 MCHC 34.5 RDW 18.1 H Plt Count 241 D MPV 9.4 Immature Gran % (Auto) 0.6 H Neut % (Auto) 85.6 H Lymph % (Auto) 9.5 L [place] % (Auto) 4.1 Eos % (Auto) 0.0 Baso % (Auto) 0.2 Lymph # (Auto) 2.8 [place] # (Auto) 1.2 Eos # (Auto) 0.0 Baso # (Auto) 0.1 Abs Immat Gran (auto) 0.18 H Absolute Neuts (auto) 24.9 H Absolute Nucleated RBC 0.000 Nucleated RBC % (auto) 0.0 Smear Tech's Comments VERIFIED PT INR VBG pH VBG pCO2 VBG pO2 VBG HCO3 VBG O2 Saturation VBG Base Excess Sodium 145 Potassium 3.5 Chloride 105 Carbon Dioxide 24 Anion Gap 20 BUN 25 H Creatinine 1.02 Estim Creat Clear Calc 58.7 Estimated GFR > 60 POC Glucose 229 H Random Glucose 250 H D Estimat Average Glucose Hemoglobin A1c % Lactic Acid Calcium 7.9 L Phosphorus 2.3 L Magnesium 2.1 Total Bilirubin Direct Bilirubin AST ALT Alkaline Phosphatase Total Creatine Kinase Troponin I High Sens Total Protein Albumin Beta HCG, Quant Urine Color Urine Appearance Urine pH Ur Specific [place] Urine Protein Urine Glucose (UA) Urine Ketones Urine Blood Urine Nitrite Ur Leukocyte Esterase Salicylates Urine Opiates Screen Acetaminophen Ur Barbiturates Screen Ur Phencyclidine Scrn Ur Amphetamines Screen U Benzodiazepines Scrn Urine Cocaine Screen U Marijuana (THC) Screen Ethyl Alcohol Acetone, Qual COVID-19 (BRENDA) COVID-19 Clin Com 09/12/20 09/12/20 09/12/20 06:37 06:41 07:18 WBC RBC Hgb Hct MCV MCH MCHC RDW Plt Count MPV Immature Gran % (Auto) Neut % (Auto) Lymph % (Auto) [place] % (Auto) Eos % (Auto) Baso % (Auto) Lymph # (Auto) [place] # (Auto) Eos # (Auto) Baso # (Auto) Abs Immat Gran (auto) Absolute Neuts (auto) Absolute Nucleated RBC Nucleated RBC % (auto) Smear Tech's Comments PT INR VBG pH 7.49 H VBG pCO2 38 VBG pO2 124 VBG HCO3 30 H VBG O2 Saturation 99.0 VBG Base Excess 6.4 Sodium Potassium Chloride Carbon Dioxide Anion Gap BUN Creatinine Estim Creat Clear Calc Estimated GFR POC Glucose 385 H* Random Glucose Estimat Average Glucose 315 Hemoglobin A1c % 12.6 Lactic Acid Calcium Phosphorus Magnesium Total Bilirubin Direct Bilirubin AST ALT Alkaline Phosphatase Total Creatine Kinase Troponin I High Sens Total Protein Albumin Beta HCG, Quant Urine Color Urine Appearance Urine pH Ur Specific [place] Urine Protein Urine Glucose (UA) Urine Ketones Urine Blood Urine Nitrite Ur Leukocyte Esterase Salicylates Urine Opiates Screen Acetaminophen Ur Barbiturates Screen Ur Phencyclidine Scrn Ur Amphetamines Screen U Benzodiazepines Scrn Urine Cocaine Screen U Marijuana (THC) Screen Ethyl Alcohol Acetone, Qual COVID-19 (BRENDA) COVID-19 [employer] 09/12/20 09/12/20 09/12/20 07:21 11:19 16:31 WBC RBC Hgb Hct MCV MCH MCHC RDW Plt Count MPV Immature Gran % (Auto) Neut % (Auto) Lymph % (Auto) [place] % (Auto) Eos % (Auto) Baso % (Auto) Lymph # (Auto) [place] # (Auto) Eos # (Auto) Baso # (Auto) Abs Immat Gran (auto) Absolute Neuts (auto) Absolute Nucleated RBC Nucleated RBC % (auto) Smear Tech's Comments PT INR VBG pH VBG pCO2 VBG pO2 VBG HCO3 VBG O2 Saturation VBG Base Excess Sodium Potassium Chloride Carbon Dioxide Anion Gap BUN Creatinine Estim Creat Clear Calc Estimated GFR POC Glucose 314 H 306 H 87 Random Glucose Estimat Average Glucose Hemoglobin A1c % Lactic Acid Calcium Phosphorus Magnesium Total Bilirubin Direct Bilirubin AST ALT Alkaline Phosphatase Total Creatine Kinase Troponin I High Sens Total Protein Albumin Beta HCG, Quant Urine Color Urine Appearance Urine pH Ur Specific [place] Urine Protein Urine Glucose (UA) Urine Ketones Urine Blood Urine Nitrite Ur Leukocyte Esterase Salicylates Urine Opiates Screen Acetaminophen Ur Barbiturates Screen Ur Phencyclidine Scrn Ur Amphetamines Screen U Benzodiazepines Scrn Urine Cocaine Screen U Marijuana (THC) Screen Ethyl Alcohol Acetone, Qual COVID-19 (BRENDA) COVID-19 [employer] 09/12/20 09/12/20 09/13/20 16:35 20:41 07:54 WBC RBC Hgb Hct MCV MCH MCHC RDW Plt Count MPV Immature Gran % (Auto) Neut % (Auto) Lymph % (Auto) [place] % (Auto) Eos % (Auto) Baso % (Auto) Lymph # (Auto) [place] # (Auto) Eos # (Auto) Baso # (Auto) Abs Immat Gran (auto) Absolute Neuts (auto) Absolute Nucleated RBC Nucleated RBC % (auto) Smear Tech's Comments PT INR VBG pH VBG pCO2 VBG pO2 VBG HCO3 VBG O2 Saturation VBG Base Excess Sodium Potassium Chloride Carbon Dioxide Anion Gap BUN Creatinine Estim Creat Clear Calc Estimated GFR POC Glucose 88 135 H 241 H Random Glucose Estimat Average Glucose Hemoglobin A1c % Lactic Acid Calcium Phosphorus Magnesium Total Bilirubin Direct Bilirubin AST ALT Alkaline Phosphatase Total Creatine Kinase Troponin I High Sens Total Protein Albumin Beta HCG, Quant Urine Color Urine Appearance Urine pH Ur Specific [place] Urine Protein Urine Glucose (UA) Urine Ketones Urine Blood Urine Nitrite Ur Leukocyte Esterase Salicylates Urine Opiates Screen Acetaminophen Ur Barbiturates Screen Ur Phencyclidine Scrn Ur Amphetamines Screen U Benzodiazepines Scrn Urine Cocaine Screen U Marijuana (THC) Screen Ethyl Alcohol Acetone, Qual COVID-19 (BRENDA) COVID-19 Clin Com Imaging Radiology Impressions: ITS Impressions Head CT 09/11/20 12:44 IMPRESSION: No acute intracranial pathology. Abdomen/Pelvis CT 09/11/20 14:40 IMPRESSION: Small 1 cm focal consolidation with central gas likely resolving consolidation/pneumonia. Differential diagnoses may include a microabscess. Moderate constipation. No obstruction. Limited exam due to lack of IV contrast and very limited adipose tissue resulting in lack of differentiation between organs. Chest CT 09/11/20 14:40 IMPRESSION: Small 1 cm focal consolidation with central gas likely resolving consolidation/pneumonia. Differential diagnoses may include a microabscess. Moderate constipation. No obstruction. Limited exam due to lack of IV contrast and very limited adipose tissue resulting in lack of differentiation between organs. Mental Status Exam Mental Status Exam Narrative: Awake, alert, oriented in person, place and situation. On hospital gowns, good eye contact, superficially cooperative. Her speech was normal. Mood dysphoric, affect constricted, thought process circumstantial but logical. Thought content adamantly denies suicidal ideation, denies hallucinations or delusions. Insight, judgment and impulse control poor. Medications Medications Current Medications Generic Name Dose Route Start Last Admin Trade Name Felipeq PRN Reason Stop Dose Admin Potassium Chloride/Sodium Chloride 20 meq in 1,000 mls @ 80 mls/hr 09/12/20 08:00 09/13/20 09:41 IVCONT 80 mls/hr .[id number] MIKKI Administration Vancomycin HCl 1,250 mg/ 250 mls @ 166.667 mls/hr 09/12/20 18:00 09/12/20 19:24 Sodium Chloride IV Infused Q24H MIKKI Infusion Insulin Glargine 30 unit 09/12/20 09:00 09/13/20 08:02 Insulin Glargine,Hum.Rec.Anlog 100 Unit/Ml 10 Ml Vial SUBCUT 30 unit DAILY MIKKI Administration Insulin Human Lispro 0 unit 09/13/20 07:30 09/13/20 08:03 Insulin Lispro 100 Unit/Ml 3 Ml Vial SUBCUT 4 unit QIDACHS [facility] Administration Protocol Pharmacy Consult 1 each 09/11/20 12:43 Consult Rx Vancomycin Dosing MISCELLANE DAILY PRN Consult order Pharmacy Consult 1 each 09/12/20 17:08 Consult Rx Vancomycin Dosing MISCELLANE DAILY PRN Consult order Sodium Chloride 3 ml 09/11/20 16:00 09/13/20 07:10 0.9 % Sodium Chloride Flush 3 Ml Syringe IVFLUSH Not Given QSHIFT [facility] Allergies Allergies Allergy/AdvReac Type Severity Reaction Status Date / Time No Known Allergies Allergy Verified 07/22/20 16:27 Assessment & Plan Assessment & Plan (1) Opioid use disorder, severe, dependence: Status: Acute Code(s): F11.20 - Opioid dependence, uncomplicated Recommendations: Young adult female with polysubstance dependence, with several medical problems such as DM and endocarditis, referred to me to assess capacity to sign AMA. Even thought that it shows poor judgment signing AMA, the patient understands the risks and benefits. She would be a good candidate for Section 35. (2) Cocaine use disorder, moderate, dependence: Status: Acute Code(s): F14.20 - Cocaine dependence, uncomplicated (3) Endocarditis: Status: Acute Code(s): I38 - Endocarditis, valve unspecified Greater than 50% of the session was spent on counseling and/or coordination of care
--- NOTE | 2020-09-13 14:41 | MHC.CM.PN ---
PT DISCHARGED TODAY AMA, PT WAS SEEN BY PSYCHIATRIST WHO NOTED PT UNDERSTANDS THE RISK AND BENEFITS OF AMA, PT WAS OFFERED METHADONE MAINTENANCE HOWEVER CONTINUED TO CHOOSE TO LEAVE AMA, PT SELF ARRANGED TRANSPORT.
[2020-09-16 08:58] LABS: Glucose, Whole Blood 306 mg/dL (60-115)
[2020-09-16 09:04] LABS: Glucose, Whole Blood 69 mg/dL (60-115)
== END 2020-09-13 11:37 | disposition left against medical advice (07) | DRG 420 ==
LOC: HO.ED 13:51 → HO.EDOVER 17:53 → HO.ICU 18:14 → HO.S3 09-12 15:01
PROVIDERS: Nurse Practitioner Family; Physician Assistant; Admitting Provider Internal Medicine Cardiovascular Disease; Emergency Provider Emergency Medicine; PCP Family Medicine; Visit Provider Internal Medicine
DX: E10.10 Type 1 diabetes mellitus with ketoacidosis without coma (principal); G93.41 Metabolic encephalopathy; R64 Cachexia; N17.9 Acute kidney failure, unspecified; F14.20 Cocaine dependence, uncomplicated; F11.20 Opioid dependence, uncomplicated; Z68.1 Body mass index [BMI] 19.9 or less, adult; I07.9 Rheumatic tricuspid valve disease, unspecified; B86 Scabies; L01.00 Impetigo, unspecified; K13.0 Diseases of lips; D72.829 Elevated white blood cell count, unspecified; Z91.14 Patient's other noncompliance with medication regimen; Z20.822 Contact with and (suspected) exposure to COVID-19
CPT/HCPCS: 36415; 70450; 71250; 74176; 80048; 80076; 80143; 80179; 80307; 80320; 81003; 82009; 82550; 82947; 83036; 83605; 83735; 84100; 84484; 84702; 85025; 85610; 87040; 87077; 87635; 93005; 96365; 96368; 96375; 99285; 99291; C1758; J0696; J2060; J3370

== ENCOUNTER 2020-09-13 12:32 | Emergency (ER) | payer MEDICAID, SELFPAY ==
[2020-09-13 13:36] VITALS: BP 134/101; PULSE 74; RESP 16; TEMP 36.2; O2SAT 98; BMI 16.1
--- NOTE | 2020-09-13 13:52 | PC.NURSE ---
PT WAS INCONTINENT OF URINE IN THE WR. SHE IS EMACIATED IN APPEARANCE. SHE IS SOAKED FROM THE RAIN AFTER LEAVING AMA FORM THE MEDICAL FLOOR JUST [employer]. PT WAS BROUGHT IN AND GIVEN DRY HOSPITAL ATTIRE. SHE IS ASKING FOR FOOD/DRINKS. SHE IS NOT ABLE TO TELL ME WHAT HER POC WAS BUT REPORTS GETTING INSULIN BEFORE SHE LEFT.
--- NOTE | 2020-09-13 14:23 | PC.NURSE ---
randolph dodson will try for iv access with ultrasound
[2020-09-13 15:19] LABS: MANUAL DIFF FLAG NO
[2020-09-13 15:20] LABS: Basophils Percent Auto 0.1 % (0-2); Eosinophils Percent Auto 0.1 % (0-4); Hematocrit 36.5 % (37-47); Hemoglobin 11.8 g/dl (12.0-16.0); Imm Gran Abs Auto 0.03 X10*3/uL (0.00-0.03); Imm Gran Pct Auto 0.3 % (0.0-0.4); Lymphocytes Absolute Auto 2.5 X10*3/uL (1.2-4.9); Mean Corpuscular HGB Conc 32.3 g/dl (31.0-35.0); Mean Corpuscular Hemoglobin 28.9 pg (27.0-33.0); Mean Corpuscular Volume 89.2 fL (80-98); Mean Platelet Volume 8.9 fL (9.4-12.3); Monocytes Absolute Auto 0.4 X10*3/uL (0.1-1.2); Monocytes Percent Auto 4.3 % (2-11); Neutrophils Absolute Auto 6.7 X10*3/uL (2.0-8.3); Neutrophils Percent Auto 69.2 % (45-73); Platelet Count 203 X10*3/uL (160-400); Red Blood Count 4.09 X10*6/uL (4.20-5.50); Red Cell Distribution Width 18.8 % (11.0-16.0); White Blood Count 9.7 X10*3/uL (4.8-10.8)
[2020-09-13 15:30] LABS: INTERNATIONAL NORM RATIO 0.9 (0.9-1.1); Prothrombin Time 10.8 SEC (10.8-13.0)
[2020-09-13 15:33] LABS: Partial Thromboplastin Time 29.5 SEC (24.1-38.0)
--- NOTE | 2020-09-13 15:39 | PC.NURSE ---
PATIENT REFUSED EKG.RN/MD MADE AWARE.
[2020-09-13 15:44] LABS: Acetone, serum QL Negative (Negative)
[2020-09-13 15:47] LABS: Alanine Aminotransferase 76 U/L (0-31); Albumin Level 3.7 g/dL (3.5-5.0); Alkaline Phosphatase 179 U/L (39-117); Anion Gap 16 (12-20); Aspartate Amino Transferase 130 U/L (5-31); Bilirubin Direct 0.4 mg/dL (0.0-0.5); Bilirubin Total 1.1 mg/dL (0.0-1.0); Blood Urea Nitrogen 5 mg/dL (9-16); Calcium 8.9 mg/dL (8.4-10.2); Carbon Dioxide 26 mmol/L (22-29); Chloride 101 mmol/L (96-108); Estimated Glomerular Filt Rate > 60; Glucose Random 66 mg/dL (60-115); Magnesium 1.9 mg/dL (1.6-2.6); Potassium 3.6 mmol/L (3.3-5.1); Sodium 139 mmol/L (135-145)
[2020-09-13 15:49] LABS: Lactic Acid 3.1 mmol/L (0.5-2.0)
--- NOTE | 2020-09-13 15:50 | ED_ITS ---
HPI - General Adult General Chief complaint: General Medical Stated complaint: chest pain Time Seen by Provider: 09/13/20 13:58 Source: patient History of Present Illness HPI narrative: 24-year-old female with a past medical history of polysubstance substance abuse, RUDI, DKA, endocarditis, metabolic encephalopathy to the ED complaining of generalized body pain x today. Patient signed out AMA from inpatient this morning, plan was to repeat echo to assess for agitation and possible transfer to [facility] for cardiothoracic surgery. Patient denies fever, chills, nausea, vomiting, abdominal pain, SI/HI Onset (ago): day(s) Related Data Home Medications Medication Instructions Recorded Confirmed insulin regular human [Novolin R 1 sliding scale dose SUBCUT 08/05/20 08/17/20 Regular U-100 Insuln] USEASDIRECTD Allergies Allergy/AdvReac Type Severity Reaction Status Date / Time No Known Allergies Allergy Verified 07/22/20 16:27 Review of Systems Review of Systems: Constitutional: No Fever, No Chills Cardiovascular: No Chest Pain, No SOB, No Edema Respiratory: No Cough, No Dyspnea Gastrointestinal: No Nausea, No Vomiting, No Diarrhea, No Constipation, No Abdominal pain Musculoskeletal: No joint pain, + Myalgias Skin: + Skin Lesions Psych: No SI/HI Yes all other systems are reviewed and are negative PMFSH Past Medical History Attestation statement: The following information was validated with the patient. Medical History Anxiety Cocaine abuse Diabetes mellitus type 1 Endocarditis Heroin abuse Social History Social History Household Members: None Housing: Homeless Do you presently have visiting nurse or other home services: No Unable to assess alcohol history related to: Refusing to respond Alcohol intake: unknown Patient Tobacco Use Status: Current everyday Tobacco user Substance Use Type: Heroin and IV Drugs Advance Directives: No Advance Directives Information Provided: Yes Patient : No service: No Current occupational status: unemployed Physical Exam Vital Signs: Vital Signs: Last Vital Signs Temp 97.2 F 09/13/20 13:36 Pulse 74 09/13/20 13:36 Resp 16 09/13/20 16:00 BP 134/101 H 09/13/20 13:36 Pulse Ox 98 09/13/20 13:36 Body Mass Index 16.1 Const: General: cooperative, ill appearing chronically and poor hygiene Nutritional Appearance: cachectic and malnourished Orientation/consciousness: patient oriented x3 HENMT: Head: Yes normal to inspection and Yes atraumatic Ears: hearing grossly normal bilaterally General nose exam: Normal external nose present Face and sinus: Yes normal facial exam Eyes: General: appearance normal, both eyes and all related structures EOM: EOMs intact bilaterally Neck: Neck: Yes normal visual inspection Resp: Effort & Inspection: normal respiratory effort, no stridor and not tachypneic Cardio: Rate: regular rate Heart sounds: S1 normal heart sound present and S2 normal heart sound present GI: Inspection: Yes normal to inspection Palpation (GI): Soft to palpation, nontender, no guarding and not rigid Skin: Other: Multiple scabs/skin lesions diffusely over body Rashes: no rashes Wounds: no wounds Neuro: General: patient oriented x3 and moves all extremities Gait exam (Neuro): Normal gait present Extrem: General: Yes normal to inspection Course Course Course Narrative: -no leukocytosis, H&H stable, glucose 241 > acetone negative, lactic elevated at 3.1 > likely from dehydration -AST/ALT acute on chronically elevated -1700--patient ripped out IV. Had lengthy discussed with patient, reports she is agreeable to stay at this time to be properly treated for her infection. Will discuss case with hospitalist -170--shortly after conversation patient eloped the ED -after patient eloped was called from microbiology patient had positive blood culture growing yeast. Patient does not have contact information Medical Decision Making [facility] Narrative Medical decision making narrative: 24-year-old female with a past medical history of polysubstance substance abuse, RUDI, DKA, endocarditis, metabolic encephalopathy to the ED complaining of generalized body pain x today. On exam hypertensive, NAD, no apparent distress at this time, resting comfortably, cooperative. Likely incompletely treated endocarditis. R/o DKA and metabolic abnls. Low concern for severe sepsis Plan: EKG, labs, lactic, blood cultures, vancomycin, anticipate admission Lab Data Result diagrams: 09/13/20 14:50 09/13/20 14:50 Labs: Lab Results 09/13/20 09/13/20 09/13/20 Range/Units 14:50 14:50 14:50 WBC 9.7 (4.8-10.8) X10*3/uL RBC 4.09 L (4.20-5.50) X10*6/uL Hgb 11.8 L (12.0-16.0) g/dl Hct 36.5 L D (37-47) % MCV 89.2 (80-98) fL MCH 28.9 (27.0-33.0) pg MCHC 32.3 (31.0-35.0) g/dl RDW 18.8 H (11.0-16.0) % Plt Count 203 (160-400) X10*3/uL MPV 8.9 L (9.4-12.3) fL Immature Gran % (Auto) 0.3 (0.0-0.4) % Neut % (Auto) 69.2 (45-73) % Lymph % (Auto) 26.0 (20-40) % Barnes % (Auto) 4.3 (2-11) % Eos % (Auto) 0.1 (0-4) % Baso % (Auto) 0.1 (0-2) % Lymph # (Auto) 2.5 (1.2-4.9) X10*3/uL Barnes # (Auto) 0.4 (0.1-1.2) X10*3/uL Eos # (Auto) 0.0 (0.0-0.4) X10*3/uL Baso # (Auto) 0.0 (0.0-0.2) X10*3/uL Abs Immat Gran (auto) 0.03 (0.00-0.03) X10*3/uL Absolute Neuts (auto) 6.7 (2.0-8.3) X10*3/uL Absolute Nucleated RBC 0.000 (0.0-0.012) X10*3/uL Nucleated RBC % (auto) 0.0 (0.0-0.2) /100WBC PT (10.8-13.0) SEC INR (0.9-1.1) APTT (24.1-38.0) SEC Sodium 139 (135-145) mmol/L Potassium 3.6 (3.3-5.1) mmol/L Chloride 101 (96-108) mmol/L Carbon Dioxide 26 (22-29) mmol/L Anion Gap 16 (12-20) BUN 5 L D (9-16) mg/dL Creatinine 0.59 (0.5-1.4) mg/dL Estim Creat Clear Calc 107.0 Estimated GFR > 60 Random Glucose 66 D (60-115) mg/dL Lactic Acid 3.1 H* (0.5-2.0) mmol/L Calcium 8.9 D (8.4-10.2) mg/dL Magnesium 1.9 (1.6-2.6) mg/dL Total Bilirubin 1.1 H (0.0-1.0) mg/dL Direct Bilirubin 0.4 (0.0-0.5) mg/dL AST 130 H (5-31) U/L ALT 76 H (0-31) U/L Alkaline Phosphatase 179 H (39-117) U/L Total Protein 7.0 (6.5-8.0) g/dL Albumin 3.7 (3.5-5.0) g/dL Acetone, Qual Negative (Negative) 09/13/20 Range/Units 14:50 WBC (4.8-10.8) X10*3/uL RBC (4.20-5.50) X10*6/uL Hgb (12.0-16.0) g/dl Hct (37-47) % MCV (80-98) fL MCH (27.0-33.0) pg MCHC (31.0-35.0) g/dl RDW (11.0-16.0) % Plt Count (160-400) X10*3/uL MPV (9.4-12.3) fL Immature Gran % (Auto) (0.0-0.4) % Neut % (Auto) (45-73) % Lymph % (Auto) (20-40) % Barnes % (Auto) (2-11) % Eos % (Auto) (0-4) % Baso % (Auto) (0-2) % Lymph # (Auto) (1.2-4.9) X10*3/uL Barnes # (Auto) (0.1-1.2) X10*3/uL Eos # (Auto) (0.0-0.4) X10*3/uL Baso # (Auto) (0.0-0.2) X10*3/uL Abs Immat Gran (auto) (0.00-0.03) X10*3/uL Absolute Neuts (auto) (2.0-8.3) X10*3/uL Absolute Nucleated RBC (0.0-0.012) X10*3/uL Nucleated RBC % (auto) (0.0-0.2) /100WBC PT 10.8 (10.8-13.0) SEC INR 0.9 (0.9-1.1) APTT 29.5 (24.1-38.0) SEC Sodium (135-145) mmol/L Potassium (3.3-5.1) mmol/L Chloride (96-108) mmol/L Carbon Dioxide (22-29) mmol/L Anion Gap (12-20) BUN (9-16) mg/dL Creatinine (0.5-1.4) mg/dL Estim Creat Clear Calc Estimated GFR Random Glucose (60-115) mg/dL Lactic Acid (0.5-2.0) mmol/L Calcium (8.4-10.2) mg/dL Magnesium (1.6-2.6) mg/dL Total Bilirubin (0.0-1.0) mg/dL Direct Bilirubin (0.0-0.5) mg/dL AST (5-31) U/L ALT (0-31) U/L Alkaline Phosphatase (39-117) U/L Total Protein (6.5-8.0) g/dL Albumin (3.5-5.0) g/dL Acetone, Qual (Negative) Discharge Plan Discharge Clinical Impression: Endocarditis Patient Disposition: Elopement Prescriptions: No Action Novolin R Regular U-100 Insuln 100 unit/mL Solution 1 sliding scale dose SUBCUT USEASDIRECTD RF: 0 Interventions: ED Discharge Assessment Last Done: 09/13/20 17:14 Discharge Date/Time: 09/13/20 17:16
[2020-09-13 16:00] VITALS: RESP 16
[2020-09-13] MEDS: 0.9 % Sodium Chloride 1,000 ML 999 ML IVCONT (16:08)
--- NOTE | 2020-09-13 17:13 | PC.NURSE ---
AT APPROX 1645- PT REMOVED HER IV ACCESS, STATING THAT THE SITE WAS PAINFUL. MILD INFILTRATE WAS NOTED WITHOUT REDNESS. SHE IS REFUSING ANOTHER IV START. SHE HAS EATEN AND HAD PO FLUIDS DURING HER ED STAY. PROVIDER AWARE
[2020-09-13 17:16] LABS: Reflex Lactate? Lactic Acid Added
== END 2020-09-13 17:16 | disposition left against medical advice (07) ==
PROVIDERS: Physician Assistant; Emergency Provider Emergency Medicine Emergency Medical Services
DX: I38 Endocarditis, valve unspecified (principal); R07.9 Chest pain, unspecified; F17.200 Nicotine dependence, unspecified, uncomplicated; F11.90 Opioid use, unspecified, uncomplicated; Z71.6 Tobacco abuse counseling; Z79.899 Other long term (current) drug therapy
CPT/HCPCS: 36415; 80048; 80076; 82009; 83605; 83735; 85025; 85610; 85730; 87040; 96360; 96361; 99284

== ENCOUNTER 2020-09-23 19:17 | Inpatient (IN) | payer MEDICAID, SELFPAY ==
[2020-09-23 19:40] VITALS: BP 112/43; PULSE 88; RESP 16; TEMP 36.5; O2SAT 100; BMI 16.9
--- NOTE | 2020-09-23 19:54 | ED_ITS ---
HPI - General Adult General Chief complaint: Syncope Stated complaint: ?SUBSTANCE ABUSE Time Seen by Provider: 09/23/20 19:54 Source: patient Mode of arrival: ambulatory Limitations: no limitations History of Present Illness HPI narrative: Patient history of polysubstance abuse cocaine and heroin with type 1 diabetes noncompliant to insulin says that she did not take her insulin for last few days been to our hospital with DKA multiple times today she used heroin was in alley/lethargic under the influence of heroin bystander called the hair machine operator and EMS brought the patient here on arrival patient's blood glucose read very high patient is lethargic dozing off no vomiting no abdominal pain or diarrhea patient feels thirsty and asking for water no fever no chills Related Data Home Medications Medication Instructions Recorded Confirmed insulin glargine [Lantus Solostar 30 unit SUBCUT BEDTIME 09/24/20 09/24/20 U-100 Insulin] insulin lispro [Humalog U-100 See Protocol SUBCUT USEASDIRECTD 09/24/20 09/24/20 Insulin] Allergies Allergy/AdvReac Type Severity Reaction Status Date / Time No Known Allergies Allergy Verified 07/22/20 16:27 Review of Systems Review of Systems: Constitutional : No Weight loss, No Fever, No Chills ENT/Mouth : No sore throat, No Rhinorrhea Eyes: No Eye Pain, No Swelling Cardiovascular : No Chest Pain, no palpitations Respiratory : No Cough, No Sputum, no shortness of breath Gastrointestinal : no Nausea, No Vomiting, No Diarrhea, No abdominal Pain, no black stools Genitourinary : No Dysuria, No Urinary Frequency Musculoskeletal : No joint pain, No Myalgias, No Joint Swelling Skin : No Skin Lesions, No rash Neuro : No Weakness, No Numbness, No Dizziness, No Headache Psych : No Anxiety/Panic, No Depression Heme/Lymph: No Bruising, No Lymphadenopathy Endocrine : + Polyuria, No Polydipsia All other systems reviewed and are negative [facility] Past Medical History Medical History (Updated 09/25/20 @ 21:57 by Gricelda Rivero MD) Anxiety Cocaine abuse Diabetes mellitus type 1 Endocarditis Heroin abuse Staphylococcus aureus bacteremia Social History Social History Household Members: None Housing: Homeless Do you presently have visiting nurse or other home services: No Unable to assess alcohol history related to: Refusing to respond Alcohol intake: unknown Patient Tobacco Use Status: Current everyday Tobacco user Tobacco use type: Cigarette Cigarette Packs Per Day: 1 Cigarettes Per Day: 20.0 Substance Use Type: Heroin service: No Current occupational status: unemployed Physical Exam Vital Signs: Vital Signs: Last Vital Signs Temp 98.5 F 09/26/20 03:33 Pulse 64 09/26/20 03:33 Resp 18 09/26/20 03:33 BP 125/68 09/26/20 03:33 Pulse Ox 998 H 09/26/20 03:33 Body Mass Index 16.9 Appearance: Alert. Oriented X3. No acute distress. Thin built with IV track castelan and scratch castelan all over the body Eyes: PERRLA, No Nystagmus ENT: Pharynx normal. Oral Mucosa moist Neck: Normal inspection. Neck supple. CVS: Normal heart rate and rhythm. Pulses normal. Respiratory: No respiratory distress. Equal air entry bilateral, no wheezing/rales/rhonchi Abdomen: Soft and nontender. Bowel sounds are present, no mass palpable, no CVA tenderness Skin: Skin warm and dry. Normal skin color. Normal skin turgor. Extremities: No lower extremity edema. No calf tenderness Neuro: Oriented X 3. No motor deficit. No sensory deficit.No cerebellar signs , cranial nerves II-XII intact Medical Decision Making MDM Narrative Medical decision making narrative: Patient with DKA with corrected sodium of 136 hyperkalemia but without any EKG changes with substance abuse. Patient received 2 L of normal saline had p.o. fluids patient pulled out the IV line and refusing to get any IV line at this time. Started on insulin drip and IV insulin was also given blood sugar dropped to 503 and then increased again more than 600. Patient was given 10 mg of subQ Humalog and 30 units of Lantus we will check chemistry no ICU bed available . Lab Data Lab results reviewed: Yes I reviewed the patient's lab results. Result diagrams: 09/25/20 04:12 09/25/20 04:12 Labs: Lab Results 09/23/20 09/23/20 09/23/20 Range/Units 19:47 19:48 20:21 WBC 15.0 H (4.8-10.8) X10*3/uL RBC 4.11 L (4.20-5.50) X10*6/uL Hgb 12.1 (12.0-16.0) g/dl Hct 38.2 (37-47) % MCV 92.9 (80-98) fL MCH 29.4 (27.0-33.0) pg MCHC 31.7 (31.0-35.0) g/dl RDW 17.4 H (11.0-16.0) % Plt Count 360 D (160-400) X10*3/uL MPV 10.8 (9.4-12.3) fL Immature Gran % (Auto) 0.9 H (0.0-0.4) % Neut % (Auto) 87.1 H (45-73) % Lymph % (Auto) 10.8 L (20-40) % Crawford % (Auto) 1.1 L (2-11) % Eos % (Auto) 0.0 (0-4) % Baso % (Auto) 0.1 (0-2) % Lymph # (Auto) 1.6 (1.2-4.9) X10*3/uL Crawford # (Auto) 0.2 (0.1-1.2) X10*3/uL Eos # (Auto) 0.0 (0.0-0.4) X10*3/uL Baso # (Auto) 0.0 (0.0-0.2) X10*3/uL Abs Immat Gran (auto) 0.14 H (0.00-0.03) X10*3/uL Absolute Neuts (auto) 13.1 H (2.0-8.3) X10*3/uL Absolute Nucleated RBC 0.000 (0.0-0.012) X10*3/uL Nucleated RBC % (auto) 0.0 (0.0-0.2) /100WBC VBG pH (7.32-7.43) VBG pCO2 mmHg VBG pO2 mmHg VBG HCO3 (22-26) mmol/L VBG O2 Saturation % VBG Base Excess mmol/L Sodium (135-145) mmol/L Potassium (3.3-5.1) mmol/L Chloride (96-108) mmol/L Carbon Dioxide (22-29) mmol/L Anion Gap (12-20) BUN (9-16) mg/dL Creatinine (0.5-1.4) mg/dL Estim Creat Clear Calc Estimated GFR POC Glucose > 600 H* > 600 H* (60-115) mg/dL Random Glucose (60-115) mg/dL Lactic Acid (0.5-2.0) mmol/L Calcium (8.4-10.2) mg/dL Phosphorus (2.7-4.5) mg/dL Magnesium (1.6-2.6) mg/dL Total Bilirubin (0.0-1.0) mg/dL Direct Bilirubin (0.0-0.5) mg/dL AST (5-31) U/L ALT (0-31) U/L Alkaline Phosphatase (39-117) U/L Total Protein (6.5-8.0) g/dL Albumin (3.5-5.0) g/dL Lipase (8-78) U/L Acetone, Qual (Negative) COVID-19 (BRENDA) (Negative) COVID-19 Clin Com 09/23/20 09/23/20 09/23/20 Range/Units 20:21 20:21 20:21 WBC (4.8-10.8) X10*3/uL RBC (4.20-5.50) X10*6/uL Hgb (12.0-16.0) g/dl Hct (37-47) % MCV (80-98) fL MCH (27.0-33.0) pg MCHC (31.0-35.0) g/dl RDW (11.0-16.0) % Plt Count (160-400) X10*3/uL MPV (9.4-12.3) fL Immature Gran % (Auto) (0.0-0.4) % Neut % (Auto) (45-73) % Lymph % (Auto) (20-40) % Crawford % (Auto) (2-11) % Eos % (Auto) (0-4) % Baso % (Auto) (0-2) % Lymph # (Auto) (1.2-4.9) X10*3/uL Crawford # (Auto) (0.1-1.2) X10*3/uL Eos # (Auto) (0.0-0.4) X10*3/uL Baso # (Auto) (0.0-0.2) X10*3/uL Abs Immat Gran (auto) (0.00-0.03) X10*3/uL Absolute Neuts (auto) (2.0-8.3) X10*3/uL Absolute Nucleated RBC (0.0-0.012) X10*3/uL Nucleated RBC % (auto) (0.0-0.2) /100WBC VBG pH (7.32-7.43) VBG pCO2 mmHg VBG pO2 mmHg VBG HCO3 (22-26) mmol/L VBG O2 Saturation % VBG Base Excess mmol/L Sodium 120 L* (135-145) mmol/L Potassium 7.3 H* D (3.3-5.1) mmol/L Chloride 76 L D (96-108) mmol/L Carbon Dioxide 16 L (22-29) mmol/L Anion Gap 35 H (12-20) BUN 22 H D (9-16) mg/dL Creatinine 1.74 H (0.5-1.4) mg/dL Estim Creat Clear Calc 38.1 Estimated GFR 37 POC Glucose (60-115) mg/dL Random Glucose 1105 H* (60-115) mg/dL Lactic Acid 2.0 (0.5-2.0) mmol/L Calcium 9.2 (8.4-10.2) mg/dL Phosphorus (2.7-4.5) mg/dL Magnesium (1.6-2.6) mg/dL Total Bilirubin 0.8 (0.0-1.0) mg/dL Direct Bilirubin 0.3 (0.0-0.5) mg/dL AST 36 H D (5-31) U/L ALT 96 H (0-31) U/L Alkaline Phosphatase 303 H D (39-117) U/L Total Protein 7.9 (6.5-8.0) g/dL Albumin 4.2 (3.5-5.0) g/dL Lipase 8 (8-78) U/L Acetone, Qual Large H (Negative) COVID-19 (BRENDA) (Negative) COVID-19 Clin Com 09/23/20 09/23/20 09/23/20 Range/Units 20:28 21:02 21:03 WBC (4.8-10.8) X10*3/uL RBC (4.20-5.50) X10*6/uL Hgb (12.0-16.0) g/dl Hct (37-47) % MCV (80-98) fL MCH (27.0-33.0) pg MCHC (31.0-35.0) g/dl RDW (11.0-16.0) % Plt Count (160-400) X10*3/uL MPV (9.4-12.3) fL Immature Gran % (Auto) (0.0-0.4) % Neut % (Auto) (45-73) % Lymph % (Auto) (20-40) % Crawford % (Auto) (2-11) % Eos % (Auto) (0-4) % Baso % (Auto) (0-2) % Lymph # (Auto) (1.2-4.9) X10*3/uL Crawford # (Auto) (0.1-1.2) X10*3/uL Eos # (Auto) (0.0-0.4) X10*3/uL Baso # (Auto) (0.0-0.2) X10*3/uL Abs Immat Gran (auto) (0.00-0.03) X10*3/uL Absolute Neuts (auto) (2.0-8.3) X10*3/uL Absolute Nucleated RBC (0.0-0.012) X10*3/uL Nucleated RBC % (auto) (0.0-0.2) /100WBC VBG pH 7.23 L (7.32-7.43) VBG pCO2 40 mmHg VBG pO2 62 mmHg VBG HCO3 17 L (22-26) mmol/L VBG O2 Saturation 84.0 % VBG Base Excess -9.3 mmol/L Sodium (135-145) mmol/L Potassium (3.3-5.1) mmol/L Chloride (96-108) mmol/L Carbon Dioxide (22-29) mmol/L Anion Gap (12-20) BUN (9-16) mg/dL Creatinine (0.5-1.4) mg/dL Estim Creat Clear Calc Estimated GFR POC Glucose > 600 H* > 600 H* (60-115) mg/dL Random Glucose (60-115) mg/dL Lactic Acid (0.5-2.0) mmol/L Calcium (8.4-10.2) mg/dL Phosphorus (2.7-4.5) mg/dL Magnesium (1.6-2.6) mg/dL Total Bilirubin (0.0-1.0) mg/dL Direct Bilirubin (0.0-0.5) mg/dL AST (5-31) U/L ALT (0-31) U/L Alkaline Phosphatase (39-117) U/L Total Protein (6.5-8.0) g/dL Albumin (3.5-5.0) g/dL Lipase (8-78) U/L Acetone, Qual (Negative) COVID-19 (BRENDA) (Negative) COVID-19 Clin Com 09/23/20 09/23/20 09/23/20 Range/Units 21:27 22:15 23:16 WBC (4.8-10.8) X10*3/uL RBC (4.20-5.50) X10*6/uL Hgb (12.0-16.0) g/dl Hct (37-47) % MCV (80-98) fL MCH (27.0-33.0) pg MCHC (31.0-35.0) g/dl RDW (11.0-16.0) % Plt Count (160-400) X10*3/uL MPV (9.4-12.3) fL Immature Gran % (Auto) (0.0-0.4) % Neut % (Auto) (45-73) % Lymph % (Auto) (20-40) % Crawford % (Auto) (2-11) % Eos % (Auto) (0-4) % Baso % (Auto) (0-2) % Lymph # (Auto) (1.2-4.9) X10*3/uL Crawford # (Auto) (0.1-1.2) X10*3/uL Eos # (Auto) (0.0-0.4) X10*3/uL Baso # (Auto) (0.0-0.2) X10*3/uL Abs Immat Gran (auto) (0.00-0.03) X10*3/uL Absolute Neuts (auto) (2.0-8.3) X10*3/uL Absolute Nucleated RBC (0.0-0.012) X10*3/uL Nucleated RBC % (auto) (0.0-0.2) /100WBC VBG pH (7.32-7.43) VBG pCO2 mmHg VBG pO2 mmHg VBG HCO3 (22-26) mmol/L VBG O2 Saturation % VBG Base Excess mmol/L Sodium (135-145) mmol/L Potassium (3.3-5.1) mmol/L Chloride (96-108) mmol/L Carbon Dioxide (22-29) mmol/L Anion Gap (12-20) BUN (9-16) mg/dL Creatinine (0.5-1.4) mg/dL Estim Creat Clear Calc Estimated GFR POC Glucose 503 H* > 600 H* (60-115) mg/dL Random Glucose (60-115) mg/dL Lactic Acid (0.5-2.0) mmol/L Calcium (8.4-10.2) mg/dL Phosphorus (2.7-4.5) mg/dL Magnesium (1.6-2.6) mg/dL Total Bilirubin (0.0-1.0) mg/dL Direct Bilirubin (0.0-0.5) mg/dL AST (5-31) U/L ALT (0-31) U/L Alkaline Phosphatase (39-117) U/L Total Protein (6.5-8.0) g/dL Albumin (3.5-5.0) g/dL Lipase (8-78) U/L Acetone, Qual (Negative) COVID-19 (BRENDA) Negative (Negative) COVID-19 Clin Com See Note 09/23/20 09/24/20 09/24/20 Range/Units 23:18 00:12 00:45 WBC (4.8-10.8) X10*3/uL RBC (4.20-5.50) X10*6/uL Hgb (12.0-16.0) g/dl Hct (37-47) % MCV (80-98) fL MCH (27.0-33.0) pg MCHC (31.0-35.0) g/dl RDW (11.0-16.0) % Plt Count (160-400) X10*3/uL MPV (9.4-12.3) fL Immature Gran % (Auto) (0.0-0.4) % Neut % (Auto) (45-73) % Lymph % (Auto) (20-40) % Crawford % (Auto) (2-11) % Eos % (Auto) (0-4) % Baso % (Auto) (0-2) % Lymph # (Auto) (1.2-4.9) X10*3/uL Crawford # (Auto) (0.1-1.2) X10*3/uL Eos # (Auto) (0.0-0.4) X10*3/uL Baso # (Auto) (0.0-0.2) X10*3/uL Abs Immat Gran (auto) (0.00-0.03) X10*3/uL Absolute Neuts (auto) (2.0-8.3) X10*3/uL Absolute Nucleated RBC (0.0-0.012) X10*3/uL Nucleated RBC % (auto) (0.0-0.2) /100WBC VBG pH (7.32-7.43) VBG pCO2 mmHg VBG pO2 mmHg VBG HCO3 (22-26) mmol/L VBG O2 Saturation % VBG Base Excess mmol/L Sodium 127 L (135-145) mmol/L Potassium 5.1 D (3.3-5.1) mmol/L Chloride 91 L (96-108) mmol/L Carbon Dioxide 23 (22-29) mmol/L Anion Gap 18 (12-20) BUN 16 (9-16) mg/dL Creatinine 0.91 (0.5-1.4) mg/dL Estim Creat Clear Calc 72.8 Estimated GFR > 60 POC Glucose > 600 H* 519 H* (60-115) mg/dL Random Glucose 518 H* (60-115) mg/dL Lactic Acid (0.5-2.0) mmol/L Calcium 7.9 L D (8.4-10.2) mg/dL Phosphorus (2.7-4.5) mg/dL Magnesium (1.6-2.6) mg/dL Total Bilirubin (0.0-1.0) mg/dL Direct Bilirubin (0.0-0.5) mg/dL AST (5-31) U/L ALT (0-31) U/L Alkaline Phosphatase (39-117) U/L Total Protein (6.5-8.0) g/dL Albumin (3.5-5.0) g/dL Lipase (8-78) U/L Acetone, Qual (Negative) COVID-19 (BRENDA) (Negative) COVID-19 Clin Com 09/24/20 09/24/20 09/24/20 Range/Units 01:10 01:10 01:37 WBC (4.8-10.8) X10*3/uL RBC (4.20-5.50) X10*6/uL Hgb (12.0-16.0) g/dl Hct (37-47) % MCV (80-98) fL MCH (27.0-33.0) pg MCHC (31.0-35.0) g/dl RDW (11.0-16.0) % Plt Count (160-400) X10*3/uL MPV (9.4-12.3) fL Immature Gran % (Auto) (0.0-0.4) % Neut % (Auto) (45-73) % Lymph % (Auto) (20-40) % Crawford % (Auto) (2-11) % Eos % (Auto) (0-4) % Baso % (Auto) (0-2) % Lymph # (Auto) (1.2-4.9) X10*3/uL Crawford # (Auto) (0.1-1.2) X10*3/uL Eos # (Auto) (0.0-0.4) X10*3/uL Baso # (Auto) (0.0-0.2) X10*3/uL Abs Immat Gran (auto) (0.00-0.03) X10*3/uL Absolute Neuts (auto) (2.0-8.3) X10*3/uL Absolute Nucleated RBC (0.0-0.012) X10*3/uL Nucleated RBC % (auto) (0.0-0.2) /100WBC VBG pH (7.32-7.43) VBG pCO2 mmHg VBG pO2 mmHg VBG HCO3 (22-26) mmol/L VBG O2 Saturation % VBG Base Excess mmol/L Sodium 129 L (135-145) mmol/L Potassium 4.9 (3.3-5.1) mmol/L Chloride 89 L (96-108) mmol/L Carbon Dioxide 28 (22-29) mmol/L Anion Gap 17 (12-20) BUN 16 (9-16) mg/dL Creatinine 0.97 (0.5-1.4) mg/dL Estim Creat Clear Calc 68.3 Estimated GFR > 60 POC Glucose 375 H* (60-115) mg/dL Random Glucose 469 H* (60-115) mg/dL Lactic Acid 3.2 H* (0.5-2.0) mmol/L Calcium 8.4 D (8.4-10.2) mg/dL Phosphorus 2.9 (2.7-4.5) mg/dL Magnesium 1.8 (1.6-2.6) mg/dL Total Bilirubin (0.0-1.0) mg/dL Direct Bilirubin (0.0-0.5) mg/dL AST (5-31) U/L ALT (0-31) U/L Alkaline Phosphatase (39-117) U/L Total Protein (6.5-8.0) g/dL Albumin (3.5-5.0) g/dL Lipase (8-78) U/L Acetone, Qual (Negative) COVID-19 ([facility]ENDA) (Negative) COVID-19 Clin Com 09/24/20 Range/Units 02:35 WBC (4.8-10.8) X10*3/uL RBC (4.20-5.50) X10*6/uL Hgb (12.0-16.0) g/dl Hct (37-47) % MCV (80-98) fL MCH (27.0-33.0) pg MCHC (31.0-35.0) g/dl RDW (11.0-16.0) % Plt Count (160-400) X10*3/uL MPV (9.4-12.3) fL Immature Gran % (Auto) (0.0-0.4) % Neut % (Auto) (45-73) % Lymph % (Auto) (20-40) % Crawford % (Auto) (2-11) % Eos % (Auto) (0-4) % Baso % (Auto) (0-2) % Lymph # (Auto) (1.2-4.9) X10*3/uL Crawford # (Auto) (0.1-1.2) X10*3/uL Eos # (Auto) (0.0-0.4) X10*3/uL Baso # (Auto) (0.0-0.2) X10*3/uL Abs Immat Gran (auto) (0.00-0.03) X10*3/uL Absolute Neuts (auto) (2.0-8.3) X10*3/uL Absolute Nucleated RBC (0.0-0.012) X10*3/uL Nucleated RBC % (auto) (0.0-0.2) /100WBC VBG pH (7.32-7.43) VBG pCO2 mmHg VBG pO2 mmHg VBG HCO3 (22-26) mmol/L VBG O2 Saturation % VBG Base Excess mmol/L Sodium (135-145) mmol/L Potassium (3.3-5.1) mmol/L Chloride (96-108) mmol/L Carbon Dioxide (22-29) mmol/L Anion Gap (12-20) BUN (9-16) mg/dL Creatinine (0.5-1.4) mg/dL Estim Creat Clear Calc Estimated GFR POC Glucose 278 H (60-115) mg/dL Random Glucose (60-115) mg/dL Lactic Acid (0.5-2.0) mmol/L Calcium (8.4-10.2) mg/dL Phosphorus (2.7-4.5) mg/dL Magnesium (1.6-2.6) mg/dL Total Bilirubin (0.0-1.0) mg/dL Direct Bilirubin (0.0-0.5) mg/dL AST (5-31) U/L ALT (0-31) U/L Alkaline Phosphatase (39-117) U/L Total Protein (6.5-8.0) g/dL Albumin (3.5-5.0) g/dL Lipase (8-78) U/L Acetone, Qual (Negative) COVID-19 ([facility]ENDA) (Negative) COVID-19 Clin Com Critical Care Time Critical Care Time Critical Care Time: Yes Total Critical Care Time: 65 Attestation: I spent 65 minutes of critical care, with interventions, assessments, speaking to patient, consultants, Discharge Plan Discharge Clinical Impression: Polysubstance abuse, RUDI (acute kidney injury) DKA (diabetic ketoacidoses) Qualifiers: Diabetes mellitus type: type 1 Diabetes mellitus complication detail: without coma Qualified Code(s): E10.10 - Type 1 diabetes mellitus with ketoacidosis without coma Patient Disposition: Admitted As Inpatient Interventions: Admission Worksheet (ED) Last Done: 09/24/20 05:37 Discharge Date/Time: 09/24/20 05:44
[2020-09-23 19:55] LABS: Glucose, Whole Blood > 600 mg/dL (60-115)
[2020-09-23] MEDS: Insulin Lispro 100 UNIT/ML 3 ML VIAL 14 UNIT SUBCUT ×2 (20:08→23:28)
--- NOTE | 2020-09-23 20:08 | PC.NURSE ---
Dr Santana at bedside placing a iv. pt difficult stick attempt at iv to IJ and now by ultra sound to arm. pt has periods of crying, yelling at staff, insist on having a beverage, pt given diet gingeral at doctors ok for pt cooperation. pt has soars to her mid back, left hand finger, all over her body picking soars and track castelan.
--- NOTE | 2020-09-23 20:16 | ECG_ITS ---
Test Reason : HIGH BS Blood Pressure : / mmHG Vent. Rate : 060 BPM Atrial Rate : 060 BPM P-R Int : 148 ms QRS Dur : 084 ms QT Int : 442 ms P-R-T Axes : 052 073 050 degrees QTc Int : 442 ms Normal sinus rhythm with sinus arrhythmia Normal ECG When compared with ECG of 11-SEP-2020 14:01, Vent. rate has decreased BY 53 BPM Referred By: Marcello Santana Electronically Signed By:LISSETTE NOLASCO MD
[2020-09-23 20:28] LABS: MANUAL DIFF FLAG NO
[2020-09-23 20:36] LABS: Venous Blood Gas Refer to POC result
[2020-09-23 20:36] LABS: VBG Base Excess -9.3 mmol/L; VBG HCO3 17 mmol/L (22-26); VBG pCO2 40 mmHg; VBG pH 7.23 (7.32-7.43); VBG pO2 62 mmHg
[2020-09-23 20:40] LABS: Basophils Percent Auto 0.1 % (0-2); Hematocrit 38.2 % (37-47); Hemoglobin 12.1 g/dl (12.0-16.0); Imm Gran Abs Auto 0.14 X10*3/uL (0.00-0.03); Imm Gran Pct Auto 0.9 % (0.0-0.4); Lymphocytes Absolute Auto 1.6 X10*3/uL (1.2-4.9); Lymphocytes Percent Auto 10.8 % (20-40); Mean Corpuscular HGB Conc 31.7 g/dl (31.0-35.0); Mean Corpuscular Hemoglobin 29.4 pg (27.0-33.0); Mean Corpuscular Volume 92.9 fL (80-98); Mean Platelet Volume 10.8 fL (9.4-12.3); Monocytes Absolute Auto 0.2 X10*3/uL (0.1-1.2); Monocytes Percent Auto 1.1 % (2-11); Neutrophils Absolute Auto 13.1 X10*3/uL (2.0-8.3); Neutrophils Percent Auto 87.1 % (45-73); Platelet Count 360 X10*3/uL (160-400); Red Blood Count 4.11 X10*6/uL (4.20-5.50); Red Cell Distribution Width 17.4 % (11.0-16.0)
[2020-09-23] MEDS: 0.9 % Sodium Chloride 1,000 ML 999 ML IVCONT ×3 (20:41→22:29)
[2020-09-23 20:55] LABS: Acetone, serum QL Large (Negative)
[2020-09-23 20:57] LABS: Alanine Aminotransferase 96 U/L (0-31); Albumin Level 4.2 g/dL (3.5-5.0); Alkaline Phosphatase 303 U/L (39-117); Aspartate Amino Transferase 36 U/L (5-31); Bilirubin Direct 0.3 mg/dL (0.0-0.5); Bilirubin Total 0.8 mg/dL (0.0-1.0); Lipase 8 U/L (8-78); Total Protein 7.9 g/dL (6.5-8.0)
[2020-09-23 21:08] LABS: Glucose, Whole Blood > 600 mg/dL (60-115)
[2020-09-23 21:08] LABS: Anion Gap 35 (12-20); Blood Urea Nitrogen 22 mg/dL (9-16); Calcium 9.2 mg/dL (8.4-10.2); Carbon Dioxide 16 mmol/L (22-29); Chloride 76 mmol/L (96-108); Creatinine Clr Calc Pharmacy 38.1; Estimated Glomerular Filt Rate 37; Glucose Random 1105 mg/dL (60-115); Potassium 7.3 mmol/L (3.3-5.1); Sodium 120 mmol/L (135-145)
[2020-09-23] MEDS: Insulin Regular, Human 100 UNIT/ML 3 ML VIAL 10 UNIT IVPUSH (21:14)
[2020-09-23] MEDS: Insulin Regular/NS 100 UNIT/100 ML PLAST..BAG 10 UNIT IVCONT (21:23)
[2020-09-23 21:31] VITALS: BP 99/50; PULSE 66; RESP 8; O2SAT 100
[2020-09-23] MEDS: Naloxone HCl 0.4 MG/ML VIAL IVPUSH (21:37)
[2020-09-23 21:49] LABS: COVID-19 Test Negative (Negative)
[2020-09-23 22:00] VITALS: BP 112/80; PULSE 74; RESP 13; O2SAT 97
[2020-09-23 22:19] LABS: Glucose, Whole Blood 503 mg/dL (60-115)
--- NOTE | 2020-09-23 22:26 | PC.NURSE ---
poc 505 insulin drip decreased by 50% per protocol. rate changed to 5 units hr. provider made aware.
[2020-09-23] MEDS: Insulin Glargine,Hum.rec.anlog 100 UNIT/ML 10 ML VIAL 30 UNIT SUBCUT (23:02)
[2020-09-23 23:24] LABS: Glucose, Whole Blood > 600 mg/dL (60-115)
[2020-09-23 23:24] LABS: Glucose, Whole Blood > 600 mg/dL (60-115)
[2020-09-24 00:16] LABS: Glucose, Whole Blood 519 mg/dL (60-115)
--- NOTE | 2020-09-24 00:25 | PC.NURSE ---
pt was found with iv pulled out. provider made aware, insulin drip is off and the last ns 1000 L not infusing at this time.
--- NOTE | 2020-09-24 00:31 | PC.NURSE ---
lab called for a lab draw, pt is a difficult stick and pulled her iv out.
[2020-09-24 05:38] LABS: Glucose, Whole Blood 272 mg/dL (60-115)
[2020-09-24 05:38] LABS: Glucose, Whole Blood 278 mg/dL (60-115)
[2020-09-24 05:38] LABS: Glucose, Whole Blood 190 mg/dL (60-115)
[2020-09-24 05:38] LABS: Glucose, Whole Blood 375 mg/dL (60-115)
--- NOTE | 2020-09-24 05:56 | PM.IMHP ---
History of Present Illness Date of Service: 09/24/20 Chief Complaint: Lethargy 24-year-old female with a past medical history of type 1 diabetes, history of multiple admissions for DKA, history of polysubstance abuse presented to the hospital with a chief complaint of lethargy. Patient was found to be lethargic and drowsy subsequently bystander call EMS and brought her to the hospital for further evaluation. Patient is a poor historian. Patient mentioned that she has been using drugs. Denies any chest pain fever cough. Patient asking if she can eat. Denies any numbness tingling. Denies any GI or symptoms. Review of all other systems is negative except mentioned above ER course: Per ER team patient on presentation noted to be lethargic, had pinpoint pupils subsequently Narcan was given; vitals were stable; blood glucose noted to be very high on the labs patient noted to be hypo natremia, hyperkalemic, with anion gap of 35; noted to be in DKA-started on insulin drip protocol. Subsequently the follow-up labs showed anion gap closed and transitioned to Lantus 35 units. Potassium levels improved. Admitted to the hospital for further management. [facility] Medical History (Updated 09/25/20 @ 21:57 by Gricelda Rivero MD) Anxiety Cocaine abuse Diabetes mellitus type 1 Endocarditis Heroin abuse Staphylococcus aureus bacteremia Social History Household Members: None Housing: Homeless Do you presently have visiting nurse or other home services: No Unable to assess alcohol history related to: Refusing to respond Alcohol intake: unknown Patient Tobacco Use Status: Current everyday Tobacco user Tobacco use type: Cigarette Cigarette Packs Per Day: 1 Cigarettes Per Day: 20.0 Substance Use Type: Heroin service: No Current occupational status: unemployed Meds Allergies Allergy/AdvReac Type Severity Reaction Status Date / Time No Known Allergies Allergy Verified 07/22/20 16:27 Active Medications: Current Medications Generic Name Dose Route Start Last Admin Trade Name Freq PRN Reason Stop Dose Admin Acetaminophen 650 mg 09/24/20 05:49 Acetaminophen 325 Mg Tablet PO Q6H PRN Pain, Mild (Pain Scale 1-3) Insulin Human Regular 100 unit in 100 mls @ 0 mls/hr 09/23/20 21:15 09/23/20 21:23 Myxredlin IVCONT 10 unit/hr .Q0M [facility] 10 mls/hr Administration Protocol Per Protocol Insulin Glargine 35 unit 09/24/20 21:00 Insulin Glargine,Hum.Rec.Anlog 100 Unit/Ml 10 Ml Vial SUBCUT BEDTIME [facility] Insulin Human Lispro 0 unit 09/24/20 07:30 Insulin Lispro 100 Unit/Ml 3 Ml Vial SUBCUT QIDACHS [facility] Protocol Sodium Chloride 3 ml 09/24/20 08:00 0.9 % Sodium Chloride Flush 3 Ml Syringe IVFLUSH QSHIFT [facility] Home Medications Medication Instructions Recorded Confirmed Last Taken Type insulin glargine [Lantus Solostar 30 unit SUBCUT BEDTIME 09/24/20 09/24/20 Unknown History U-100 Insulin] insulin lispro [Humalog U-100 See Protocol SUBCUT USEASDIRECTD 09/24/20 09/24/20 Unknown History Insulin] Physical Exam Vital Signs and Narrative: Vital Signs: Last Vital Signs Temp 97.7 F 09/23/20 19:40 Pulse 74 09/23/20 22:00 Resp 13 09/23/20 22:00 BP 112/80 09/23/20 22:00 Pulse Ox 97 09/23/20 22:00 Body Mass Index 16.9 Gen: Appears be in no acute distress HEENT: NCAT, Moist mucosa. Pulmonary: Vesicular breath sounds, fair air entry CVS: Normal S1-S2 Abdomen: BS+, Soft, Nontender Extremities: Warm well perfused Neuro: Alert and awake. Results Labs CBC and Chem 7: 09/25/20 04:12 09/25/20 04:12 Labs: Laboratory Results - last 24 hr 09/23/20 09/23/20 09/23/20 19:47 20:21 20:21 MCV 92.9 MCH 29.4 MCHC 31.7 RDW 17.4 H Plt Count 360 D MPV 10.8 Immature Gran % (Auto) 0.9 H Neut % (Auto) 87.1 H Lymph % (Auto) 10.8 L [place] % (Auto) 1.1 L Eos % (Auto) 0.0 Baso % (Auto) 0.1 Lymph # (Auto) 1.6 [place] # (Auto) 0.2 Eos # (Auto) 0.0 Baso # (Auto) 0.0 Abs Immat Gran (auto) 0.14 H Absolute Neuts (auto) 13.1 H Absolute Nucleated RBC 0.000 Nucleated RBC % (auto) 0.0 VBG pH VBG pCO2 VBG pO2 VBG HCO3 VBG O2 Saturation VBG Base Excess Anion Gap 35 H Estim Creat Clear Calc 38.1 Estimated GFR 37 POC Glucose > 600 H* Random Glucose 1105 H* Lactic Acid Calcium 9.2 Total Bilirubin Direct Bilirubin AST ALT Alkaline Phosphatase Total Protein Albumin Lipase Acetone, Qual COVID-19 (BRENDA) COVID-19 Clin Com 09/23/20 09/23/20 09/23/20 20:21 20:21 20:28 MCV MCH MCHC RDW Plt Count MPV Immature Gran % (Auto) Neut % (Auto) Lymph % (Auto) [place] % (Auto) Eos % (Auto) Baso % (Auto) Lymph # (Auto) [place] # (Auto) Eos # (Auto) Baso # (Auto) Abs Immat Gran (auto) Absolute Neuts (auto) Absolute Nucleated RBC Nucleated RBC % (auto) VBG pH 7.23 L VBG pCO2 40 VBG pO2 62 VBG HCO3 17 L VBG O2 Saturation 84.0 VBG Base Excess -9.3 Anion Gap Estim Creat Clear Calc Estimated GFR POC Glucose Random Glucose Lactic Acid 2.0 Calcium Total Bilirubin 0.8 Direct Bilirubin 0.3 AST 36 H D ALT 96 H Alkaline Phosphatase 303 H D Total Protein 7.9 Albumin 4.2 Lipase 8 Acetone, Qual Large H COVID-19 (BRENDA) COVID-19 [employer] Com 09/23/20 09/23/20 09/23/20 21:02 21:27 22:15 MCV MCH MCHC RDW Plt Count MPV Immature Gran % (Auto) Neut % (Auto) Lymph % (Auto) [place] % (Auto) Eos % (Auto) Baso % (Auto) Lymph # (Auto) [place] # (Auto) Eos # (Auto) Baso # (Auto) Abs Immat Gran (auto) Absolute Neuts (auto) Absolute Nucleated RBC Nucleated RBC % (auto) VBG pH VBG pCO2 VBG pO2 VBG HCO3 VBG O2 Saturation VBG Base Excess Anion Gap Estim Creat Clear Calc Estimated GFR POC Glucose > 600 H* 503 H* Random Glucose Lactic Acid Calcium Total Bilirubin Direct Bilirubin AST ALT Alkaline Phosphatase Total Protein Albumin Lipase Acetone, Qual COVID-19 (BRENDA) Negative COVID-19 Clin Com See Note 09/23/20 09/23/20 09/24/20 23:16 23:18 00:12 MCV MCH MCHC RDW Plt Count MPV Immature Gran % (Auto) Neut % (Auto) Lymph % (Auto) [place] % (Auto) Eos % (Auto) Baso % (Auto) Lymph # (Auto) [place] # (Auto) Eos # (Auto) Baso # (Auto) Abs Immat Gran (auto) Absolute Neuts (auto) Absolute Nucleated RBC Nucleated RBC % (auto) VBG pH VBG pCO2 VBG pO2 VBG HCO3 VBG O2 Saturation VBG Base Excess Anion Gap Estim Creat Clear Calc Estimated GFR POC Glucose > 600 H* > 600 H* 519 H* Random Glucose Lactic Acid Calcium Total Bilirubin Direct Bilirubin AST ALT Alkaline Phosphatase Total Protein Albumin Lipase Acetone, Qual COVID-19 (BRENDA) COVID-19 Clin Com 09/24/20 09/24/20 09/24/20 01:37 02:35 03:17 MCV MCH MCHC RDW Plt Count MPV Immature Gran % (Auto) Neut % (Auto) Lymph % (Auto) [place] % (Auto) Eos % (Auto) Baso % (Auto) Lymph # (Auto) [place] # (Auto) Eos # (Auto) Baso # (Auto) Abs Immat Gran (auto) Absolute Neuts (auto) Absolute Nucleated RBC Nucleated RBC % (auto) VBG pH VBG pCO2 VBG pO2 VBG HCO3 VBG O2 Saturation VBG Base Excess Anion Gap Estim Creat Clear Calc Estimated GFR POC Glucose 375 H* 278 H 272 H Random Glucose Lactic Acid Calcium Total Bilirubin Direct Bilirubin AST ALT Alkaline Phosphatase Total Protein Albumin Lipase Acetone, Qual COVID-19 (BRENDA) COVID-19 Clin Com 09/24/20 04:34 MCV MCH MCHC RDW Plt Count MPV Immature Gran % (Auto) Neut % (Auto) Lymph % (Auto) [place] % (Auto) Eos % (Auto) Baso % (Auto) Lymph # (Auto) [place] # (Auto) Eos # (Auto) Baso # (Auto) Abs Immat Gran (auto) Absolute Neuts (auto) Absolute Nucleated RBC Nucleated RBC % (auto) VBG pH VBG pCO2 VBG pO2 VBG HCO3 VBG O2 Saturation VBG Base Excess Anion Gap Estim Creat Clear Calc Estimated GFR POC Glucose 190 H Random Glucose Lactic Acid Calcium Total Bilirubin Direct Bilirubin AST ALT Alkaline Phosphatase Total Protein Albumin Lipase Acetone, Qual COVID-19 (BRENDA) COVID-19 Clin Com Assessment and Plan (1) DKA (diabetic ketoacidoses): Qualifiers: Diabetes mellitus complication detail: without coma Diabetes mellitus type: type 1 Qualified Code(s): E10.10 - Type 1 diabetes mellitus with ketoacidosis without coma Status: Acute 24-year-old female with a past medical history of diabetes type 1, history of multiple admissions to the hospital for DKA, history of polysubstance abuse presented to the hospital after being found lethargic-> improved after Narcan in the ER. Patient was also found to be in DKA. DKA: Patient was on insulin drip in the ER. The follow-up blood chemistry x2 showed resolved anion gap with the latest being 16. A/of 4.9. Hyperkalemia: Resolved. Hyponatremia: Pseudo hyponatremia. Improving Diabetes: Patient was started on Lantus 35 units. Will continue. Insulin sliding scale. In Diabetic diet Polysubstance abuse: Patient mental status improved after Narcan in the ER. Will consult Addiction Medicine for further recommendations/counseling. RUDI: Improving. Will continue to monitor. DVT prophylaxis: SCD boots Code status: Full code
[2020-09-24 06:24] LABS: Anion Gap 18 (12-20); Blood Urea Nitrogen 16 mg/dL (9-16); Calcium 7.9 mg/dL (8.4-10.2); Carbon Dioxide 23 mmol/L (22-29); Chloride 91 mmol/L (96-108); Creatinine Clr Calc Pharmacy 72.8; Estimated Glomerular Filt Rate > 60; Glucose Random 518 mg/dL (60-115); Potassium 5.1 mmol/L (3.3-5.1); Sodium 127 mmol/L (135-145)
[2020-09-24 06:31] VITALS: BP 118/76; PULSE 63; RESP 16; TEMP 36.5; O2SAT 98
[2020-09-24 06:52] LABS: Chloride 89 mmol/L (96-108); Lactic Acid 3.2 mmol/L (0.5-2.0); Potassium 4.9 mmol/L (3.3-5.1); Sodium 129 mmol/L (135-145)
[2020-09-24 06:53] LABS: Anion Gap 17 (12-20); Blood Urea Nitrogen 16 mg/dL (9-16); Calcium 8.4 mg/dL (8.4-10.2); Carbon Dioxide 28 mmol/L (22-29); Creatinine Clr Calc Pharmacy 68.3; Estimated Glomerular Filt Rate > 60; Magnesium 1.8 mg/dL (1.6-2.6); Phosphorus 2.9 mg/dL (2.7-4.5)
[2020-09-24 06:54] LABS: Glucose Random 469 mg/dL (60-115)
[2020-09-24 07:28] LABS: Glucose, Whole Blood > 600 mg/dL (60-115)
[2020-09-24 07:34] LABS: Glucose, Whole Blood 137 mg/dL (60-115)
[2020-09-24 07:35] LABS: Glucose, Whole Blood > 600 mg/dL (60-115)
[2020-09-24 08:01] VITALS: BP 125/87; PULSE 61; RESP 18; TEMP 36.6; O2SAT 100
[2020-09-24 08:46] LABS: Reflex Lactate? Lactic Acid Added
--- NOTE | 2020-09-24 08:46 | MHC.CM.PN ---
CM met with Patient at bedside.Patent is homeless and living on the streets;She has no family, no social supports,no PCP, and no Methadone (Polysubstance Abuse including Heroin).Patient's goal for dc is to, return to the streets. Patient would benefit from a Care Team Consult.CM has initiated and will follow for dc planning. Patient is functionally independent.
[2020-09-24] MEDS: 0.9 % Sodium Chloride Flush 3 ML SYRINGE IVFLUSH ×3 (09:09→21:01)
[2020-09-24 10:18] LABS: ~Lactic Acid-LAB USE ONLY 1.6 mmol/L (0.5-2.0)
[2020-09-24 10:26] LABS: Magnesium 1.7 mg/dL (1.6-2.6)
[2020-09-24 11:13] LABS: Glucose, Whole Blood 277 mg/dL (60-115)
[2020-09-24 11:24] VITALS: BP 139/86; PULSE 58; RESP 19; TEMP 36.8; O2SAT 100
--- NOTE | 2020-09-24 11:45 | CA_ITS ---
Transthoracic Echocardiogram Limited Patient (Last, First, Middle): María Morgan, Gender: Female Date of : 1995 Age: 24 Procedure Date: 09/24/2020 Procedure Type: Transthoracic Echocardiogram Limited [place] [facility] [place] Height: 167.64 cm Weight: 50.8 kg BSA: 1.56 m2 Heart Rate: bpm BP: 114 / 60 mmHg Exchange Specialist: LAURA Referring MD: Kiera Winters NP Home Therapy Clinician: Renzo Niño MD Symptoms: hx of large right atrium vegetation Study Quality: Good ECG Rhythm: Sinus Conclusions: - Essentially normal study with no clear evidence of vegetations Findings Left Ventricle Normal left ventricular size, thickness, and systolic function. The visually estimated ejection fraction is between 60-65%. Diastolic function is normal for age. Right Ventricle Normal right ventricular cavity size and systolic function. Atria Both atria are normal in size. There is no evidence of interatrial shunt. Aortic Valve Normal aortic valve structure and function. There is no aortic valve stenosis. There is no aortic valve regurgitation. Mitral Valve Normal mitral valve structure and function. There is trace mitral valve regurgitation. There is no mitral valve stenosis. Pulmonic Valve The pulmonic valve is likely normal. There is trace pulmonic valve regurgitation. Tricuspid Valve Normal tricuspid valve structure. There is trace tricuspid valve regurgitation. The right ventricular systolic pressure is normal. The right ventricular systolic pressure is 23 mmHg. Normal right atrial pressure. There is no evidence of pulmonary hypertension. Great Vessels All visible segments of the aorta are normal in size. The pulmonary artery was not well visualized. Venous The inferior vena cava is normal in size and collapses greater than 50% with inspiration. Pericardium/Pleural There is no evidence of pericardial effusion. Prior Study Comparison Changes noted compared to prior study. No clear masses seen on this study Measurements 2D Linear Measurements IVSd: 0.83 0.6-0.9/0.6-1.0 cm LVIDd: 4.60 3.9-5.3/4.2-5.9 cm LVIDd Index: 2.95 2.4-3.2/2.2-3.1 cm/m2 LVIDs: 2.85 2.0-3.6 cm LVPWd: 0.75 0.7-1.1 cm LV Mass: 144.24 67-162/88-224 g LV Mass Index: 92.46 43-95/49-115 g/m2 Tricuspid Valve TR Pk Garret: 2.24 TR Pk Grad: 20.00 RA Press: 3.00 RVSP: 23.00 Updated in Other Vendor System with Status of Final Renzo Niño MD electronically signed on 09/24/2020 2:37:57 PM with status of Final
--- NOTE | 2020-09-24 12:05 | HO.PM.IMPN ---
Subjective Subjective Date of Service: 09/24/20 <Kiera Winters NP - Last Filed: 09/24/20 17:51> 09/24/20 <Nguyễn Bojorquez MD - Last Filed: 09/24/20 22:05> Interval History: Follow-up DKA Resting in bed not communicating much, saying she feels cold <Kiera Winters NP - Last Filed: 09/24/20 17:51> Physical Exam Vital Signs: Vital Signs: Last Vital Signs Temp 98.2 F 09/24/20 11:24 Pulse 58 09/24/20 11:24 Resp 19 09/24/20 11:24 BP 139/86 09/24/20 11:24 Pulse Ox 100 09/24/20 11:24 Body Mass Index 16.9 <Kiera Winters NP - Last Filed: 09/24/20 17:51> Appearing in no acute distress, sleeping, multiple scabs on her face, bruising on her legs, very cachectic appearing lung sounds are clear to auscultation heart regular rate rhythm, clear S1, S2 positive bowel sounds, abdomen is soft, nontender neuro patient is alert x3, no focal deficits <Kiera Winters NP - Last Filed: 09/24/20 17:51> Objective Data Current Medications Generic Name Dose Route Start Last Admin Trade Name Felipeq PRN Reason Stop Dose Admin Acetaminophen 650 mg 09/24/20 05:49 Acetaminophen 325 Mg Tablet PO Q6H PRN Pain, Mild (Pain Scale 1-3) Insulin Glargine 35 unit 09/24/20 21:00 Insulin Glargine,Hum.Rec.Anlog 100 Unit/Ml 10 Ml Vial SUBCUT BEDTIME [facility] Insulin Human Lispro 0 unit 09/24/20 07:30 09/24/20 09:09 Insulin Lispro 100 Unit/Ml 3 Ml Vial SUBCUT Not Given QIDACHS [facility] Protocol Senna 17.2 mg 09/24/20 07:05 Sennosides 8.6 Mg Tablet PO BEDTIME PRN Constipation Sodium Chloride 3 ml 09/24/20 08:00 09/24/20 09:09 0.9 % Sodium Chloride Flush 3 Ml Syringe IVFLUSH 3 ml QSHIFT MIKKI Administration <Kiera Winters NP - Last Filed: 09/24/20 17:51> Labs CBC & Chem 7: : 09/23/20 20:21 09/24/20 01:10 <iKera Winters NP - Last Filed: 09/24/20 17:51> Assessment and Plan (1) Polysubstance abuse: Status: Acute <Kiera Winters NP - Last Filed: 09/24/20 17:51> Assessment and Plan: 24-year-old female with a past medical history of diabetes type 1, history of multiple admissions to the hospital for DKA, history of polysubstance abuse presented to the hospital after being found lethargic-> improved after Narcan in the ER. Patient was also found to be in DKA, treated with insulin drip, gap closed, bicarb normalized. Polysubstance abuse. -mental status improved with Narcan in the ED -addiction services consultation DKA. chronic. Resolved. 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 Last echo 08/18/2020 showing 3.5 x 2 cm vegetation versus thrombus. Asymptomatic, no chest pain, obvious heart failure, fever, leukocytosis blood cultures from were negative 09/13/20 no fever, leukocytosis -echocardiogram was essentially normal and showed no evidence of vegetation or mass, discussed with reader (Dr. Niño) -Id consult Hyperkalemia/ hyponatremia ( pseudo hyponatremia). Resolved. secondary to DKA -Follow BMP RUDI. Improving. secondary to DKA -follow BMP Patient has presented to [facility] on multiple occasions for medical treatment. She is generally malnourished and cachectic while she is here due to homelessness, chronic polysubstance abuse and uncontrolled diabetes as well as several other chronic illnesses/diagnoses. She has a history of eloping and leaving against medical advice. History of drug overdose. This admission the patient was found in an alley way by bystander who called the ambulance and she was admitted for diabetic ketoacidosis. There have been multiple offers for drug rehabilitation or detox however she has declined and continues to use drugs. She obviously is having a difficult time taking care of and managing her chronic illnesses due to her cocaine and heroin abuse. It appears that she has no family or support in the community. Therefore a request was made for a court issued warrant of apprehension for treatment of her substance abuse. Patient will likely if she continues to use cocaine and heroin the way she currently is and does not seek help. DVT prophylaxis SCD boots Full code Attending: Dr. Bojorquez <Kiera Winters NP - Last Filed: 09/24/20 17:51> I saw and examined the patient and participated in the malone portion of the E/M service. I discussed the finding and management of the care of this patient with ASSISTANT CONSTRUCTION SUPERINTENDENT, I agree with with notation above. This patient is known to me from previous hospitalization for fairly simiar circumstance, typically presenting with overdose and diabetic keto acidosis. She has habitual use of drugs including heroin, cocoain and other, she has type 1 diabetes and is insulin dependent, and typically does not take meds when under influence and resulting in DKA and hospitalization and will typically leave the hospital against medical advise. This habit will resut in her premature if she does not change her way.. despite effort to try and help her, she continues to fall off the wagon . Unfortunately once the effect of drugs passed and DKA treated, she is alert and aware of her situation and aknowledges that she has problem with drugs and this is affecting he overall health, and this is instance is not different. It is however, my sincere believe that a court intervention to commit her to drug treatment will help break this cycle and I therefore support a section 35 to achieve the patient's well being. At the time of my evaluation earlier today, she was alert and oriented to self, palce and time and person and was able to tell me in her own word that she's is the hospital sick with the DKA from not taking insulin and does understand her health in danger if not appropriately treated, she thus far is agreable to go along with treatment and thus have capacity to make decisions, albeit not necessary favorable decisionss. Also of note she has had hstory finding on previous echo of a mass in atrium of unclear nature without bacteremia, other than an instance of one fungal episode in the blood, no fever, no elevated ESR and otherwise does not meet endocarditis criteria.. The finding has been previosly discussed with cardiac surgeon and advised outpatient follow up. On repeat echo today there was no such finding and no other finding of endocarditis, and the previously finding could have repreted artifact, resolved clot or other.. but at this point does not have finding consistent of endocarditis and doesn't need treatment for it. Otherwise I agree with the above <Nguyễnharriet Bojorquez, MD - Last Filed: 09/24/20 22:05>
--- NOTE | 2020-09-24 12:09 | P.CDIC_ITS ---
CDI Concurrent Query Service Date: 09/24/20 Documentation Clarification: Please clarify if you are treating a proba ble/suspected/likely or confirmed: BMI: Underweight Malnutrition, mild, moderate or severe Please specify if known Provider Response: Severe Protein-Calorie Malnutrition PLEASE DO NOT DELETE/MODIFY EXISTING CONTENT Additional information is needed in order to code to the highest accuracy and appropriate Severity of Illness (SOI). Please clarify the information noted below in your progress notes and discharge summary. Risk Factors/Clinical Indicators/Treatments Body mass index: 16.9 Heroin/cocaine abuse. CDS: Vicki Munoz CCS, CDIS Contact Number: [phone] Please Review the information above and exercise your independent professional judgment in responding to the query. If you concur, pleas document in the PROGRESS NOTES and DISCHARGE SUMMARY. If you do not agree with the query, please document in the query above. THIS QUERY IS PART OF THE PERMANENT MEDICAL RECORD
[2020-09-24] MEDS: Insulin Lispro 100 UNIT/ML 3 ML VIAL SUBCUT (12:18)
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
[2020-09-24 14:35] VITALS: BMI 16.9
--- NOTE | 2020-09-24 14:40 | MHC.CLN ---
RE: CONSULT PT IS SEVERELY MALNOURISHED PT TRIGGERS FOR 10% SIGNIFICANT WT LOSS X 4 WEEKS PREVIOUS ADMISSION WT 106# (08/18/20) DOWN 3 # SINCE LAST ADMISSION/ASSESSMENT; PT IS HOMELESS AND LIVES ON STREETS. PT IS NONCOMPLIANT WITH ALL ASPECTS OF CARE INCLUDING MEDS/HYGIENE. POOR PO INTAKE R/T DRUG ADDICTION AND SEVERELY DEPLETED SUBCUTANEOUS FAT AND MUSCLE MASS WITH A BMI 16.9 DIET RX: 2200DM-APPROPRIATE START GLUCERNA BID TO INCREASE KCALS SUPPLEMENT TO PROVIDE 474KCALS, 20G PROTEIN MONITOR PO INTAKE AND ACCEPTANCE OF SUPPLEMENT PT AT RISK FOR REFEEDING SYNDROME-MONITOR MG, PHOS AND K+ CLOSELY SEE ALSO CLINICAL NUTRITION ASSESSMENT
--- NOTE | 2020-09-24 14:57 | MHC.CM.PN ---
Multidisciplinary team meeting held re: concerns for patient's frequent visits related to substance use and self care for diabetes. Plan to petition courts for [place] [address] today, requesting issued warrant for tomorrow 09/25. Plan to keep patient comfortable and encourage her to stay in hospital overnight. CM will continue to follow patient.
--- NOTE | 2020-09-24 14:58 | PHA.MEDREC ---
Pharmacy Consult ? Medication Reconciliation Pharmacy has completed the medication reconciliation.
[2020-09-24 15:43] VITALS: BP 124/70; PULSE 71; RESP 18; TEMP 36.7; O2SAT 99
[2020-09-24 16:13] LABS: Glucose, Whole Blood 146 mg/dL (60-115)
[2020-09-24 19:50] VITALS: BP 120/80; PULSE 60; RESP 16; TEMP 37; O2SAT 99
[2020-09-24 20:21] LABS: Glucose, Whole Blood 133 mg/dL (60-115)
[2020-09-24] MEDS: Insulin Glargine,Hum.rec.anlog 100 UNIT/ML 10 ML VIAL 35 UNIT SUBCUT (20:56)
[2020-09-25] VITALS (7 sets, daily range): BP systolic 117–158; BP diastolic 63–97; PULSE 55–100; RESP 15–18; TEMP 36.2–37.2; O2SAT 96–100
--- NOTE | 2020-09-25 01:10 | PM.EVENT ---
Event Note Date of Service: 09/25/20 Event Note: Bacteremia: Patient blood cultures came back positive for GPC in clusters Will start the patient on vancomycin IV. Echocardiogram to rule out endocarditis Id consult for further recommendations Vitals are currently stable
[2020-09-25] MEDS: vancomycin HCL 1,000 MG in 0.9 % Sodium Chloride 250 ML 270 MG IV (01:54)
--- NOTE | 2020-09-25 02:49 | PC.NURSE ---
Critical result received from lab at 01:01am. 1 set of BC positive for Gram+ cocci in clusters. Pt's VSS. notified, new order for IV Vancomycin 1000mg q12h. First dose of Vanco currently infusing.
[2020-09-25 05:06] LABS: Basophils Percent Auto 0.1 % (0-2); Eosinophils Percent Auto 0.2 % (0-4); Hematocrit 32.7 % (37-47); Imm Gran Abs Auto 0.07 X10*3/uL (0.00-0.03); Imm Gran Pct Auto 0.4 % (0.0-0.4); Lymphocytes Absolute Auto 3.2 X10*3/uL (1.2-4.9); Lymphocytes Percent Auto 19.9 % (20-40); Mean Corpuscular HGB Conc 33.6 g/dl (31.0-35.0); Mean Corpuscular Hemoglobin 29.1 pg (27.0-33.0); Mean Corpuscular Volume 86.5 fL (80-98); Mean Platelet Volume 11.1 fL (9.4-12.3); Monocytes Absolute Auto 0.6 X10*3/uL (0.1-1.2); Monocytes Percent Auto 3.8 % (2-11); Neutrophils Absolute Auto 12.2 X10*3/uL (2.0-8.3); Neutrophils Percent Auto 75.6 % (45-73); PLT CLUMP 1; Red Blood Count 3.78 X10*6/uL (4.20-5.50); Red Cell Distribution Width 18.4 % (11.0-16.0); SCAN SMEAR FLAG 1
[2020-09-25 05:17] LABS: MANUAL DIFF FLAG NO
[2020-09-25 05:33] LABS: Anion Gap 16 (12-20); Blood Urea Nitrogen 7 mg/dL (9-16); Calcium 7.8 mg/dL (8.4-10.2); Carbon Dioxide 21 mmol/L (22-29); Chloride 95 mmol/L (96-108); Estimated Glomerular Filt Rate > 60; Glucose Random 123 mg/dL (60-115); Potassium 4.1 mmol/L (3.3-5.1); Sodium 128 mmol/L (135-145)
[2020-09-25 05:35] LABS: White Blood Count 16.2 X10*3/uL (4.8-10.8)
[2020-09-25 05:36] LABS: Platelet Count 233 X10*3/uL (160-400)
--- NOTE | 2020-09-25 07:30 | CA_ITS ---
Transthoracic Echocardiogram Patient (Last, First, Middle): María Morgan, Gender: Female Date of : 1995 Age: 24 Procedure Date: 09/25/2020 Procedure Type: Transthoracic Echocardiogram [place] [facility] [place] Height: 167.64 cm Weight: 47.63 kg BSA: 1.52 m2 Heart Rate: bpm BP: 153 / 92 mmHg Livestock Inspector: LAKESHA Referring MD: Tony Tsang MD Splitting Machine Operator Helper: Renzo Niño MD Symptoms: bacteremia; ?endocarditis Study Quality: Good ECG Rhythm: Bradycardia Conclusions: - Essentially normal study without any clear evidence of vegetations. Findings Left Ventricle Normal left ventricular size, thickness, and systolic function. The visually estimated ejection fraction is between 60-65%. Diastolic function is normal for age. Right Ventricle Normal right ventricular cavity size and systolic function. Atria Both atria are normal in size. Aortic Valve Normal aortic valve structure and function. There is no aortic valve stenosis. There is no aortic valve regurgitation. Mitral Valve Normal mitral valve structure and function. There is no mitral valve regurgitation. There is no mitral valve stenosis. Pulmonic Valve The pulmonic valve is normal. There is trace pulmonic valve regurgitation. Tricuspid Valve Normal tricuspid valve structure. There is trace tricuspid valve regurgitation. The right ventricular systolic pressure is normal. The right ventricular systolic pressure is 22 mmHg. Normal right atrial pressure. There is no evidence of pulmonary hypertension. Great Vessels All visible segments of the aorta are normal in size. The pulmonary artery was not well visualized. Venous The inferior vena cava is normal in size and collapses greater than 50% with inspiration. Pericardium/Pleural There is no evidence of pericardial effusion. Prior Study Comparison No significant change compared to prior study dated: 09/24/2020. Recommendations, Care & Conclusions Consider a GEETHA if clinically appropriate. Measurements 2D Linear Measurements IVSd: 0.65 0.6-0.9/0.6-1.0 cm LVIDd: 4.66 3.9-5.3/4.2-5.9 cm LVIDd Index: 3.07 2.4-3.2/2.2-3.1 cm/m2 LVIDs: 3.36 2.0-3.6 cm LVPWd: 0.59 0.7-1.1 cm LV Mass: 107.81 67-162/88-224 g LV Mass Index: 70.93 43-95/49-115 g/m2 2D Systolic Function EF 4C: 51.90 >55% EF 2C: 67.20 >55% EF BiP: 60.80 >55% Mitral Valve MV Pk E: 1.08 MV PK A: 0.39 MV Decel Time: 162.00 E/A: 2.80 E'Lateral: 12.10 E'Medial: 9.79 E/E' Med: 11.00 E/E' Lat: 8.90 PHT: 48.00 MVA PHT: 4.[address] [place]: 6.62 Diastolic Function MV Pk E: 1.08 MV Pk A: 0.39 E/A: 2.80 E'Medial: 9.79 E/E' Med: 11.00 E' Laterial: 12.10 E/E' Lat: 8.90 Tricuspid Valve TR Pk Garret: 1.86 TR Pk Grad: 14.00 RA Press: 8.00 RVSP: 22.00 Updated in Other Vendor System with Status of Final Renzo Niño MD electronically signed on 09/25/2020 3:02:46 PM with status of Final
[2020-09-25 07:48] LABS: Glucose, Whole Blood 97 mg/dL (60-115)
[2020-09-25] MEDS: 0.9 % Sodium Chloride Flush 3 ML SYRINGE IVFLUSH ×3 (08:18→20:50)
[2020-09-25] MEDS: vancomycin HCL 750 MG in 0.9 % Sodium Chloride 250 ML 265 MG IV ×2 (09:06→18:15)
--- NOTE | 2020-09-25 09:35 | MHC.CM.PN ---
CM MET WITH PT ALONG WITH RECOVERY NURSE. PT REPORTS SHE IS NOT FEELING WELL AND IS AGREEABLE TO ACCEPTING MAT. CM DISCUSSED THE NEED FOR ONGOING TREATMENT, PT PROVIDES MINIMAL RESPONSE BUT SAYS OK WHEN ASKED IF SHE WILL COMPLETE THE TREATMENT PLAN. CM WILL CONTINUE TREATMENT/DC PLANNING DISCUSSIONS WITH PT AFTER SHE RECEIVES HER MEDICATIONS AND IS FEELING BETTER. PT WILL LIKELY REQUIRE LT IV ABX AND WILL NEED TO RECEIVE THEM IN A STR.
--- NOTE | 2020-09-25 09:40 | MHC.RECOVRN ---
T/w met with pt to f/u regarding withdrawal symptoms. Pt states everything hurts. Pt anxious, teary, reporting chills and asking for numerous warm blankets. Pt thinking about leaving but open to speaking with provider regarding methadone. Pt had received 10 mg yesterday, had 2 additional doses ordered. Sedcond dose pt was too sedated. Third dose patient refused. When asked why pt refused third dose, pt states I don't know. Pt is interested in receiving methadone today. Pt educated regarding risks associated with a self initiated dc. T/w spoke with Xiomara Louise APRN. Secure message sent to ELVIA Martinez in regards to methadone initiation.
[2020-09-25 11:07] LABS: Glucose, Whole Blood 256 mg/dL (60-115)
--- NOTE | 2020-09-25 11:14 | P.EN_ITS ---
Event Note Date of Service: 09/25/20 Event Note: HPI Narrative: Patient is a 24 year old female with Type I DM and severe OUD. [place] [facility] [place] ? of opioid overdose--found out be in DKA and medically admitted. Patient known to providers at [facility] as this is her 9th time she has presented to [facility] and 7th time she has been admitted since the beginning of July. She was seen by addiction yesterday, and methadone was initiated. However, patient had received only one dose of 10mg methadone yesterday, as she was sleeping when next dose due, and then refused her next dose of 10mg. Needless to say, she is now experiencing significant opioid withdrawals and cravings. This jingle writer was asked to see patient this am to address withdrawals and appropriate treatment Patient seen in room 482 with Recovery Support RN at 10:00am. QTC ib 09/23/20 was 442. No current tox screen available, however was positive for both heroin and cocaine on recent admission. Patient was resting in bed, in no acute distress. Dishevelled appearance. Alert and oriented X4. Voice clear. Thought process logical. No evidence of hallucinations noted. No evidence of SI/HI. Opioid withdrawal sx noted included yawning, runny nose, anxiety, slight diaphoresis, c/o hot and cold flashes, chills, generalized body aches / malaise. Asking for blankets. When this jingle writer asked patient if she would like assistance with withdrawal management, she stated I guess so . She says that she has been using heroin via IV, approximately 1 bundle (10 bags) per day. She says she has been using cocaine as well, but is not sure how much. She says it has not been mixed, but has been used separately. She reports she has been living on the streets, using . We discussed re-initiating methadone today, and monitoring tomorrow, for possible dose titration. She was agreeable to this. Agreeable to starting methadone, but unwilling to engage in further conversation. Past Psychiatric History: Never admitted, no formal psychiatric treatment for substance abuse. ASSESSMENT/PLAN: Opioid use disorder, severe Cocaine use disorder, severe Start methadone 10mg three times daily, with 1st dose as soon as possible. Order has been entered, discussed with both pharmacy, unit RN. Communicated with Dr. Bojorquez via secure messaging. Will follow-up with patient tomorrow to assess and make any needed dose adjustments. Please Note: Methadone will need to be changed to once daily dosing prior to discharge, as clinics will not accept patient on multiple daily dosing. Thank you. Yennifer Cunningham, [facility] Ext [phone]
[2020-09-25] MEDS: Insulin Lispro 100 UNIT/ML 3 ML VIAL SUBCUT (11:37)
--- NOTE | 2020-09-25 16:14 | MHC.RECOVRN ---
T/w attempted to meet with pt after receiving 2 doses of methadone, 10 mg, last at 1430. Pt sleeping comfortably. Discussed with pts RN. Will continue to follow.
[2020-09-25 16:17] LABS: Glucose, Whole Blood 146 mg/dL (60-115)
--- NOTE | 2020-09-25 17:05 | P.PNIM_ITS ---
Subjective Subjective Date of Service: 09/25/20 Interval History: Seen in f/u for DKA, substance abuse, and bacteremia--Blood surgar is better, no in DKA, started on Vanco overnight for positive blood cultures, she's cooperative today and has not threaten to leave AMA thus far Review of Systems Gen: no fever Resp: no sob, no cough CV: no chest, no TOLBERT, no leg edema GI: No n/v, no abd pain Neuro: No confusion Physical Exam Vital Signs: Vital Signs: Last Vital Signs Temp 98.8 F 09/25/20 15:41 Pulse 80 09/25/20 15:41 Resp 16 09/25/20 15:41 BP 158/88 H 09/25/20 15:41 Pulse Ox 100 09/25/20 15:41 Body Mass Index 16.9 General: AO X 3, no acute distress Resp: CTA bilateral CVS: S1,S2,RRR GI: +BS, NT, no distention Skin: No rash, old scabs onlegs, arm Neuro: motor grossly intact Psych: appropriate affect Objective Data Current Medications Generic Name Dose Route Start Last Admin Trade Name Freq PRN Reason Stop Dose Admin Acetaminophen 650 mg 09/24/20 05:49 Acetaminophen 325 Mg Tablet PO Q6H PRN Pain, Mild (Pain Scale 1-3) Vancomycin HCl 750 mg/ Sodium 265 mls @ 265 mls/hr 09/25/20 10:00 09/25/20 10:20 Chloride IV Infused Q8H MIKKI Infusion Insulin Glargine 35 unit 09/24/20 21:00 09/24/20 20:56 Insulin Glargine,Hum.Rec.Anlog 100 Unit/Ml 10 Ml Vial SUBCUT 35 unit BEDTIME MIKKI Administration Insulin Human Lispro 0 unit 09/24/20 07:30 09/25/20 16:29 Insulin Lispro 100 Unit/Ml 3 Ml Vial SUBCUT Not Given QIDACHS [facility] Protocol Methadone HCl 10 mg 09/25/20 10:15 09/25/20 14:26 Methadone Hcl 1 Mg/0.1 Ml Oral.Conc PO 10 mg TID [facility] Administration Pharmacy Consult 1 each 09/25/20 01:09 Consult Rx Vancomycin Dosing MISCELLANE DAILY PRN Consult order Senna 17.2 mg 09/24/20 07:05 Sennosides 8.6 Mg Tablet PO BEDTIME PRN Constipation Sodium Chloride 3 ml 09/24/20 08:00 09/25/20 16:26 0.9 % Sodium Chloride Flush 3 Ml Syringe IVFLUSH 3 ml QSHIFT MIKKI Administration Labs CBC & Chem 7: 09/25/20 04:12 09/25/20 04:12 Microbiology Microbiology Results: Microbiology 09/23/20 20:21 Blood - Venous Blood Culture - Preliminary Staphylococcus aureus 09/23/20 20:21 Blood - Venous Blood Culture - Preliminary No growth after 24 hours. Assessment and Plan (1) Polysubstance abuse: Status: Acute Assessment and Plan: 1/Diabetes with DKA earlier that require ICU care, DKA is resolved. -Continue present dose of insulin 2/ Bacteremia she is at high risk for endocarditis, previous echo had shown finding but repeat echo yesterday show no vegetation. For now ID suggest 6 weeks of therapy with Vanco, this will be challenging given prior history of AMA and active drug use 3/ Opioid dependenc--started on Methadone and will be titrated up to avoid withdrawal. 4/ Section [address] has granted an active warrant for María. It is good until Tuesday. If she leaves AMA after business hours (ton/weekend) we call our chairman president and chief executive officer the next business day. Depending on the course if we need to extend the 35 next week, we have that possibility. --essentially section 35 is filed and once medically cleared can go, she can sign out AMA however if she has capacity at that given time.
[2020-09-25] MEDS: Enoxaparin Sodium 40 MG/0.4 ML SYRINGE SUBCUT (18:15)
[2020-09-25 20:15] LABS: Glucose, Whole Blood 138 mg/dL (60-115)
[2020-09-25] MEDS: Insulin Glargine,Hum.rec.anlog 100 UNIT/ML 10 ML VIAL 35 UNIT SUBCUT (20:49)
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
[2020-09-26] MEDS: vancomycin HCL 750 MG in 0.9 % Sodium Chloride 250 ML 265 MG IV (01:25)
[2020-09-26 01:32] LABS: Glucose, Whole Blood 192 mg/dL (60-115)
[2020-09-26 03:33] VITALS: BP 125/68; PULSE 64; RESP 18; TEMP 36.9; O2SAT 998
[2020-09-26 06:22] LABS: Glucose, Whole Blood 39 mg/dL (60-115)
[2020-09-26 06:22] LABS: Glucose, Whole Blood 31 mg/dL (60-115)
--- NOTE | 2020-09-26 06:35 | MHC.PIE ---
p - pt with frequent snacks, ice cream, sandwiches, oj through shift. this am c/o feeling like her blood sugar was low, shakey hands. speech clear & appropriate i - poc bs 31 with repeat of 39 while eating cereal, drinking oj. call to Dr. Tsang and order received for 25G of D50% iv. gave 20ml of D50% iv. then pt refused the remainder. talking about leaving AMA. e - will continue to monitor. pt ate 100% of cereal. recheck poc 184
[2020-09-26 06:51] LABS: Glucose, Whole Blood 184 mg/dL (60-115)
[2020-09-26 07:33] LABS: Glucose, Whole Blood 216 mg/dL (60-115)
--- NOTE | 2020-09-26 08:47 | PM.EVENT ---
Event Note Date of Service: 09/26/20 Event Note: First thing this morning, patient told me that she wants to leave that she is sick and tired of being here and not able to do every little thing she wants including going out for smoking and wants to sign out against medical advise. I spent alot a time talking to have about why she should not leave including getting the right treatment for bacteremia, addiction and diabetes and that not getting the right care wll endangered her life and even lead to her . She was alert, oriented to self, time and place and was able tell me in her own words that she is in hospital for complication of diabetes, infection in blood and the if not treated properly she can and in spite of this she was singning. I went back a second time with the nurse to have the same conversation, she said she has insulin, offer prescription, she decline
--- NOTE | 2020-09-26 09:27 | MHC.CM.PN ---
PT SIGNED OUT AMA THIS MORNING AND WAS PICKED UP BY DAWSON WILSON ON A SECTION 35 WARRANT.
--- NOTE | 2020-09-26 17:56 | P.DS_ITS ---
DS: Providers Provider Date of Service: 09/26/20 Date of admission: 09/24/20 03:00 Primary care physician: Unknown Physician Consults: 09/24/20 05:50 Addiction Medicine Routine Consulting Provider: Xiomara Louise Reason for consultation: substance abuse 09/24/20 08:59 Addiction Medicine Routine Consulting Provider: Xiomara Louise Reason for consultation: Substance dependenc Has provider been notified: No 09/24/20 10:33 Consult to Psychiatry Stat Consulting Provider: [facility] Reason for consultation: Assess capacity 09/25/20 01:09 Consult to Infectious Diseases Routine Consulting Provider: Gricelda Rivero Reason for consultation: bacteremia DS: Diagnosis Discharge Diagnosis (1) Polysubstance abuse: Status: Acute (2) Staphylococcus aureus bacteremia: Status: Acute DS: Medications Discharge Medications Home Medications: Home Medications Medication Instructions Recorded Confirmed insulin glargine [Lantus Solostar 30 unit SUBCUT BEDTIME 09/24/20 09/24/20 U-100 Insulin] insulin lispro [Humalog U-100 See Protocol SUBCUT USEASDIRECTD 09/24/20 09/24/20 Insulin] DS: Summary Hospital Course Hospital Course: I was informed early in the morning that she wanted to leave [place], I went up and spoke to her as disucussed luis that her treament and investigation is not completed and she is risking her life and could by leaving [place]. She verbelized understanding and was able to repeat in her own words. She was alert, oriented to self place and time and aware of her situation and still left while her bacteremia, ?endocarditis is still under investiagion and we think she needs IV antibiotics and management of DKA and getting help for substance use desorder. Her blood sugar level was ok at that time. I spoke to her on 2 separate ocasions, one ocasion with the nurse Time Spent with Patient Time attestation: Total time spent providing and/or coordinating discharge services: Discharge coordination time: Greater than 30 minutes Quality: Stroke Does the patient have a stroke diagnosis?: No Physical Exam Vital Signs: Vital Signs: Last Vital Signs Temp 98.5 F 09/26/20 03:33 Pulse 64 09/26/20 03:33 Resp 18 09/26/20 03:33 BP 125/68 09/26/20 03:33 Pulse Ox 998 H 09/26/20 03:33 Body Mass Index 16.9 DS: Data Data Completed and Pending Completed studies during hospitalization [Text1]: Procedures Drainage of Neck Skin, External Approach (08/17/20) Insertion of Infusion Device into Superior Vena Cava, Percutaneous Approach (08/06/20) Labs on day of discharge: Laboratory Results - last 24 hr 09/25/20 09/26/20 09/26/20 20:10 01:26 06:14 POC Glucose 138 H 192 H 31 L* 09/26/20 09/26/20 09/26/20 06:18 06:47 07:25 POC Glucose 39 L* 184 H 216 H Preliminary micro results at discharge 09/25/20 10:31 Blood Culture - Preliminary Blood - Venous No growth after 24 hours. 09/25/20 10:31 Blood Culture - Preliminary Blood - Venous No growth after 24 hours. 09/23/20 20:21 Blood Culture - Preliminary Blood - Venous Staphylococcus aureus 09/23/20 20:21 Blood Culture - Preliminary Blood - Venous No growth after 48 hours. Discharge Plan Discharge Anticipated Discharge Date/Time: 09/26/20 08:44 Patient Disposition: Left Against Medical Advice Discharge Diagnosis: DKA, bacteremia, possible endocarditis Referrals: Physician,Unknown [Primary Care Provider] - 1 Week Discharge Medications: No Action insulin lispro [Humalog U-100 Insulin] 100 unit/mL Solution See Protocol sliding scale dose SUBCUT USEASDIRECTD RF: 0 Lantus Solostar U-100 Insulin 100 unit/mL (3 mL) Insulin Pen 30 unit SUBCUT BEDTIME RF: 0 Discharge Orders: Discharge Order (Routine); Ordered 09/26/20 Ordered By: Nguyễn Bojorquez Care Plan Goals: to get care for addiction and proper treatment for diabes Health Concerns: substance abuse that is affecting her health Plan of Treatment: She left AMA Assessment: See above Discharge Date/Time: 09/26/20 08:00
== END 2020-09-26 08:00 | disposition left against medical advice (07) | DRG 420 ==
LOC: HO.ED 19:53 → HO.IMC 09-24 05:33
PROVIDERS: Admitting Provider Hospitalist; Emergency Provider Internal Medicine; Visit Provider Internal Medicine
DX: E10.10 Type 1 diabetes mellitus with ketoacidosis without coma (principal); E43 Unspecified severe protein-calorie malnutrition; N17.9 Acute kidney failure, unspecified; R78.81 Bacteremia; E87.5 Hyperkalemia; F14.20 Cocaine dependence, uncomplicated; F11.23 Opioid dependence with withdrawal; E87.1 Hypo-osmolality and hyponatremia; F17.210 Nicotine dependence, cigarettes, uncomplicated; F41.9 Anxiety disorder, unspecified; Z71.6 Tobacco abuse counseling; Z20.822 Contact with and (suspected) exposure to COVID-19; Z68.1 Body mass index [BMI] 19.9 or less, adult; B95.61 Methicillin susceptible Staphylococcus aureus infection as the cause of diseases classified elsewhere
CPT/HCPCS: 36415; 80048; 80076; 82009; 82947; 83605; 83690; 83735; 84100; 85025; 85027; 87040; 87077; 87186; 87205; 87635; 93005; 93308; 99285; J1650; J3370

== ENCOUNTER 2020-11-04 11:40 | Emergency (ER) | payer MEDICAID, SELFPAY ==
[2020-11-04 11:53] VITALS: BP 96/69; PULSE 59; RESP 16; O2SAT 97; BMI 15.0
--- NOTE | 2020-11-04 12:00 | MHC.RECOVRN ---
T/w met with pt who is declining labs/IV/tx. Pt reports being scared of being held against her will after Section 35 on last admission. T/w, as well as Xiomara Louise APRN, spoke with pt and assured pt that would not happen today. Pt agreed to have labs drawn. Pt allowed one attempt, which was unsuccessful. Pt then wanted to leave hospital, t/w walked pt outside.
--- NOTE | 2020-11-04 12:13 | PC.NURSE ---
pt declines all treatment. This RN informed Dr. Vasques of pts decision to decline treatment.
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
== END 2020-11-04 13:45 | disposition left against medical advice (07) ==
PROVIDERS: Emergency Provider Emergency Medicine
DX: T40.1X1A Poisoning by heroin, accidental (unintentional), initial encounter (principal); F11.10 Opioid abuse, uncomplicated; F14.10 Cocaine abuse, uncomplicated; Y92.9 Unspecified place or not applicable; E10.9 Type 1 diabetes mellitus without complications; Z59.0 Homelessness
CPT/HCPCS: 96360; 99284

== ENCOUNTER 2020-11-04 14:10 | Emergency (ER) | payer MEDICAID, SELFPAY ==
[2020-11-04 14:26] VITALS: BP 00/00; PULSE 74; RESP 16; TEMP 37; O2SAT 95; BMI 15.7
--- NOTE | 2020-11-04 14:37 | ED.GENADULT ---
HPI - General Adult General Chief complaint: ETOH/Substance Use Stated complaint: see stated Time Seen by Provider: 11/04/20 14:37 Source: patient Mode of arrival: ambulatory Limitations: no limitations History of Present Illness HPI narrative: Patient eloped from the emergency room 5 minutes prior to rechecking and again. Patient was initially seen for an overdose, patient is known to have a high blood glucose per EMS. Patient refused treatment and left AMA. Less than 5 minutes after she left, patient returns stating that now she wants blood work done. Related Data Home Medications Medication Instructions Recorded Confirmed insulin glargine [Lantus Solostar 30 unit SUBCUT BEDTIME 09/24/20 09/24/20 U-100 Insulin] insulin lispro [Humalog U-100 See Protocol SUBCUT USEASDIRECTD 09/24/20 09/24/20 Insulin] Allergies Allergy/AdvReac Type Severity Reaction Status Date / Time No Known Allergies Allergy Verified 07/22/20 16:27 Review of Systems Review of Systems: Constitutional : No Weight loss, No Fever, No Chills, No Night Sweats, No Fatigue, No Malaise, feeling somnolent ENT/Mouth : No Hearing loss, No Ear Pain, No Nasal Congestion, No Sinus Pain, No Hoarseness, No sore throat, No Rhinorrhea, No Swallowing Difficulty Eyes: No Eye Pain, No Swelling, No Redness, No Foreign Body, No Discharge, No Vision Changes Cardiovascular : No Chest Pain, No SOB, No Dyspnea on Exertion, No Orthopnea, No Edema, No Palpitations Respiratory : No Cough, No Sputum, No Wheezing, No Smoke Exposure, No Dyspnea Gastrointestinal : No Nausea, No Vomiting, No Diarrhea, No Constipation, No abdominal Pain, No Hematochezia, No Melena Genitourinary : no irregular bleeding, No Dysuria, No Urinary Frequency, No Hematuria, No Urinary Incontinence, No Urgency, No Flank Pain, No Urinary Flow Changes, No Hesitancy Musculoskeletal : No joint pain, No Myalgias, No Joint Swelling Skin : No Skin Lesions, No rash Neuro : No Weakness, No Numbness, No Paresthesias, No Loss of Consciousness, No Dizziness, No Headache Psych : No Anxiety/Panic, No Depression, No SI/HI/AH/VH, No Social Issues, Heme/Lymph: No Bruising, No Bleeding,No Lymphadenopathy Endocrine : No Polyuria, No Polydipsia, No Temperature Intolerance [facility] Past Medical History Medical History Anxiety Cocaine abuse Diabetes mellitus type 1 Endocarditis Heroin abuse Staphylococcus aureus bacteremia Social History Social History Household Members: None Housing: Homeless Do you presently have visiting nurse or other home services: No Unable to assess alcohol history related to: Refusing to respond Alcohol intake: unknown Patient Tobacco Use Status: Current everyday Tobacco user Tobacco use type: Cigarette Cigarette Packs Per Day: 1 Cigarettes Per Day: 20.0 Substance Use Type: Heroin Advance Directives: No Advance Directives Information Provided: No Patient : No service: No Current occupational status: unemployed Physical Exam Vital Signs: Vital Signs: Last Vital Signs Temp 98.6 F 11/04/20 14:26 Pulse 74 11/04/20 14:26 Resp 16 11/04/20 14:26 BP 00/00 L 11/04/20 14:26 Pulse Ox 95 11/04/20 14:26 Body Mass Index 15.7 Appearance: Alert. Oriented X3. No acute distress. Somnolent but easily arousable Eyes: Pupils equal, round and reactive to light. ENT: Pharynx normal. Neck: Normal inspection. Neck supple. No lymph nodes noted. No crepitus CVS: Normal heart rate and rhythm. Pulses normal. Normal S1 and S2 Respiratory: No respiratory distress. Breath sounds normal. No Wheezing. No rales Abdomen: Soft and nontender. No rigidity. No distention. good BS x4 Skin: Skin warm and dry. Multiple healing eschars in upper and lower extremities Extremities: No lower extremity edema. No lower extremity edema. No Lacerations. No Rash Neuro: Oriented X 3. No motor deficit. No sensory deficit. Moving all extermities. No slurred speech. Course Course Course Narrative: I discussed with the patient that her hemoglobin is 8.5, which is much lower than her average of 10-11. Patient states that she does not get menstrual periods because she has an IUD. Patient denies any black stool or true rectal bleeding. Patient declined digital rectal exam We received records from [facility]. Patient was admitted to [facility] on November 01 for bilateral lower extremity weakness following a hospitalization at [facility] for DKA. Patient was hospitalized in [facility] with the diagnosis of a spinal epidural abscess from L4 through sacral spinal canal. Nurse surgery evaluated the patient, they recommended drainage by Interventional Radiology. Patient was treated with cefepime and vancomycin. Patient was not discharged with instructions for antibiotic. At this time, patient does not have any lower extremity weakness. Patient was given 7 units of insulin lispro. Patient's lactic acid back normal. Patient white blood cell count is elevated, patient currently recuperating from spinal abscess, healing. Sepsis is not suspected. Our control and recovery combat rescue found bed for detox in [place], available in 2 hours. Patient is asymptomatic. Alert and oriented x3, no acute distress, ambulatory with steady gait. Patient will be discharged and will be going to [place] to start a detox program. Patient's blood glucose prior to discharge for 433, I discussed with the patient that she needs more insulin, fluids, discussed with her that she is prone to go into DKA. Patient declined, patient does not want any fluids, no insulin, declined any further care, states she was to be discharged. On her way out, patient helped herself to the ED's Fridge and got ice cream Medical Decision Making Lab Data Result diagrams: 11/04/20 15:43 11/04/20 15:43 Labs: Lab Results 11/04/20 11/04/20 11/04/20 Range/Units 15:43 15:43 15:43 WBC 13.9 H (4.8-10.8) X10*3/uL RBC 2.76 L D (4.20-5.50) X10*6/uL Hgb 8.5 L D (12.0-16.0) g/dl Hct 26.3 L (37-47) % MCV 95.3 (80-98) fL MCH 30.8 (27.0-33.0) pg MCHC 32.3 (31.0-35.0) g/dl RDW 18.5 H (11.0-16.0) % Plt Count 418 H D (160-400) X10*3/uL MPV 8.7 L (9.4-12.3) fL Immature Gran % (Auto) 0.6 H (0.0-0.4) % Neut % (Auto) 69.2 (45-73) % Lymph % (Auto) 23.0 (20-40) % [place] % (Auto) 6.7 (2-11) % Eos % (Auto) 0.4 (0-4) % Baso % (Auto) 0.1 (0-2) % Lymph # (Auto) 3.2 (1.2-4.9) X10*3/uL [place] # (Auto) 0.9 (0.1-1.2) X10*3/uL Eos # (Auto) 0.1 (0.0-0.4) X10*3/uL Baso # (Auto) 0.0 (0.0-0.2) X10*3/uL Abs Immat Gran (auto) 0.08 H (0.00-0.03) X10*3/uL Absolute Neuts (auto) 9.7 H (2.0-8.3) X10*3/uL Absolute Nucleated RBC 0.000 (0.0-0.012) X10*3/uL Nucleated RBC % (auto) 0.0 (0.0-0.2) /100WBC Hold Purple Top Sodium 132 L (135-145) mmol/L Potassium 4.3 (3.3-5.1) mmol/L Chloride 97 (96-108) mmol/L Carbon Dioxide 25 (22-29) mmol/L Anion Gap 14 (12-20) BUN 23 H D (9-16) mg/dL Creatinine 0.64 (0.5-1.4) mg/dL Estim Creat Clear Calc 93.8 Estimated GFR > 60 POC Glucose (60-115) mg/dL Random Glucose 186 H D (60-115) mg/dL Lactic Acid 2.6 H* (0.5-2.0) mmol/L Lactic Acid Fup @ 2Hr (0.5-2.0) mmol/L Calcium 9.1 D (8.4-10.2) mg/dL Total Bilirubin 0.2 (0.0-1.0) mg/dL Direct Bilirubin < 0.2 (0.0-0.5) mg/dL AST 29 (5-31) U/L ALT 119 H (0-31) U/L Alkaline Phosphatase 292 H (39-117) U/L Total Protein 6.3 L D (6.5-8.0) g/dL Albumin 3.5 (3.5-5.0) g/dL Beta HCG, Quant < 2 mIU/mL Hold Yellow Top Acetone, Qual Negative (Negative) 11/04/20 11/04/20 11/04/20 Range/Units 15:46 15:46 18:19 WBC (4.8-10.8) X10*3/uL RBC (4.20-5.50) X10*6/uL Hgb (12.0-16.0) g/dl Hct (37-47) % MCV (80-98) fL MCH (27.0-33.0) pg MCHC (31.0-35.0) g/dl RDW (11.0-16.0) % Plt Count (160-400) X10*3/uL MPV (9.4-12.3) fL Immature Gran % (Auto) (0.0-0.4) % Neut % (Auto) (45-73) % Lymph % (Auto) (20-40) % [place] % (Auto) (2-11) % Eos % (Auto) (0-4) % Baso % (Auto) (0-2) % Lymph # (Auto) (1.2-4.9) X10*3/uL [place] # (Auto) (0.1-1.2) X10*3/uL Eos # (Auto) (0.0-0.4) X10*3/uL Baso # (Auto) (0.0-0.2) X10*3/uL Abs Immat Gran (auto) (0.00-0.03) X10*3/uL Absolute Neuts (auto) (2.0-8.3) X10*3/uL Absolute Nucleated RBC (0.0-0.012) X10*3/uL Nucleated RBC % (auto) (0.0-0.2) /100WBC Hold Purple Top SEE NOTE Sodium (135-145) mmol/L Potassium (3.3-5.1) mmol/L Chloride (96-108) mmol/L Carbon Dioxide (22-29) mmol/L Anion Gap (12-20) BUN (9-16) mg/dL Creatinine (0.5-1.4) mg/dL Estim Creat Clear Calc Estimated GFR POC Glucose 254 H (60-115) mg/dL Random Glucose (60-115) mg/dL Lactic Acid (0.5-2.0) mmol/L Lactic Acid Fup @ 2Hr (0.5-2.0) mmol/L Calcium (8.4-10.2) mg/dL Total Bilirubin (0.0-1.0) mg/dL Direct Bilirubin (0.0-0.5) mg/dL AST (5-31) U/L ALT (0-31) U/L Alkaline Phosphatase (39-117) U/L Total Protein (6.5-8.0) g/dL Albumin (3.5-5.0) g/dL Beta HCG, Quant mIU/mL Hold Yellow Top See Note Acetone, Qual (Negative) 11/04/20 11/04/20 Range/Units 19:15 20:34 WBC (4.8-10.8) X10*3/uL RBC (4.20-5.50) X10*6/uL Hgb (12.0-16.0) g/dl Hct (37-47) % MCV (80-98) fL MCH (27.0-33.0) pg MCHC (31.0-35.0) g/dl RDW (11.0-16.0) % Plt Count (160-400) X10*3/uL MPV (9.4-12.3) fL Immature Gran % (Auto) (0.0-0.4) % Neut % (Auto) (45-73) % Lymph % (Auto) (20-40) % [place] % (Auto) (2-11) % Eos % (Auto) (0-4) % Baso % (Auto) (0-2) % Lymph # (Auto) (1.2-4.9) X10*3/uL [place] # (Auto) (0.1-1.2) X10*3/uL Eos # (Auto) (0.0-0.4) X10*3/uL Baso # (Auto) (0.0-0.2) X10*3/uL Abs Immat Gran (auto) (0.00-0.03) X10*3/uL Absolute Neuts (auto) (2.0-8.3) X10*3/uL Absolute Nucleated RBC (0.0-0.012) X10*3/uL Nucleated RBC % (auto) (0.0-0.2) /100WBC Hold Purple Top Sodium (135-145) mmol/L Potassium (3.3-5.1) mmol/L Chloride (96-108) mmol/L Carbon Dioxide (22-29) mmol/L Anion Gap (12-20) BUN (9-16) mg/dL Creatinine (0.5-1.4) mg/dL Estim Creat Clear Calc Estimated GFR POC Glucose 433 H* (60-115) mg/dL Random Glucose (60-115) mg/dL Lactic Acid (0.5-2.0) mmol/L Lactic Acid Fup @ 2Hr 2.0 (0.5-2.0) mmol/L Calcium (8.4-10.2) mg/dL Total Bilirubin (0.0-1.0) mg/dL Direct Bilirubin (0.0-0.5) mg/dL AST (5-31) U/L ALT (0-31) U/L Alkaline Phosphatase (39-117) U/L Total Protein (6.5-8.0) g/dL Albumin (3.5-5.0) g/dL Beta HCG, Quant mIU/mL Hold Yellow Top Acetone, Qual (Negative) Discharge Plan Discharge Clinical Impression: Polysubstance abuse Patient Disposition: Home, Self-Care Instructions: Polysubstance Abuse (ED) Additional Instructions: Please follow-up with your primary care physician tomorrow. If you have any worsening or new symptoms, please return to the emergency room or call 911 Prescriptions: No Action insulin lispro [Humalog U-100 Insulin] 100 unit/mL Solution See Protocol sliding scale dose SUBCUT USEASDIRECTD RF: 0 Lantus Solostar U-100 Insulin 100 unit/mL (3 mL) Insulin Pen 30 unit SUBCUT BEDTIME RF: 0 Interventions: ED Discharge Assessment Last Done: 11/04/20 20:37
--- NOTE | 2020-11-04 15:00 | MHC.RECOVRN ---
Pt had declined treatment earlier this afternoon, t/w had walked pt outside. While outside, pt felt blood sugar becoming low and wanted to return to ED. T/w informed pt that staff would need to attempt labs/obtain IV access/change pt over into hospital attire. Pt agreeable. Pt returned to ED. After multiple attempts labs obtained. Pt would like to engage in tx, both medically and for NIALL. Case discussed with pts RN as well as Xiomara Louise APRN.
--- NOTE | 2020-11-04 15:03 | PC.NURSE ---
pt has required multiple attempts for blood labs, will attempt access via ultrasound
[2020-11-04 15:49] LABS: MANUAL DIFF FLAG NO
[2020-11-04 15:51] LABS: Basophils Percent Auto 0.1 % (0-2); Eosinophils Absolute Auto 0.1 X10*3/uL (0.0-0.4); Eosinophils Percent Auto 0.4 % (0-4); Hematocrit 26.3 % (37-47); Hemoglobin 8.5 g/dl (12.0-16.0); Imm Gran Abs Auto 0.08 X10*3/uL (0.00-0.03); Imm Gran Pct Auto 0.6 % (0.0-0.4); Lymphocytes Absolute Auto 3.2 X10*3/uL (1.2-4.9); Mean Corpuscular HGB Conc 32.3 g/dl (31.0-35.0); Mean Corpuscular Hemoglobin 30.8 pg (27.0-33.0); Mean Corpuscular Volume 95.3 fL (80-98); Mean Platelet Volume 8.7 fL (9.4-12.3); Monocytes Absolute Auto 0.9 X10*3/uL (0.1-1.2); Monocytes Percent Auto 6.7 % (2-11); Neutrophils Absolute Auto 9.7 X10*3/uL (2.0-8.3); Neutrophils Percent Auto 69.2 % (45-73); Platelet Count 418 X10*3/uL (160-400); Red Blood Count 2.76 X10*6/uL (4.20-5.50); Red Cell Distribution Width 18.5 % (11.0-16.0); White Blood Count 13.9 X10*3/uL (4.8-10.8)
[2020-11-04] MEDS: 0.9 % Sodium Chloride 1,000 ML 999 ML IVCONT ×2 (16:06→17:15)
[2020-11-04 16:22] LABS: Acetone, serum QL Negative (Negative)
[2020-11-04 16:23] LABS: Alanine Aminotransferase 119 U/L (0-31); Albumin Level 3.5 g/dL (3.5-5.0); Alkaline Phosphatase 292 U/L (39-117); Anion Gap 14 (12-20); Aspartate Amino Transferase 29 U/L (5-31); Bilirubin Direct < 0.2 mg/dL (0.0-0.5); Bilirubin Total 0.2 mg/dL (0.0-1.0); Blood Urea Nitrogen 23 mg/dL (9-16); Calcium 9.1 mg/dL (8.4-10.2); Carbon Dioxide 25 mmol/L (22-29); Chloride 97 mmol/L (96-108); Creatinine Clr Calc Pharmacy 93.8; Estimated Glomerular Filt Rate > 60; Glucose Random 186 mg/dL (60-115); Potassium 4.3 mmol/L (3.3-5.1); Sodium 132 mmol/L (135-145); Total Protein 6.3 g/dL (6.5-8.0)
[2020-11-04 16:24] LABS: Lactic Acid 2.6 mmol/L (0.5-2.0)
[2020-11-04 16:30] LABS: HCG Quantitative < 2 mIU/mL
[2020-11-04 17:49] LABS: Reflex Lactate? Lactic Acid Added
[2020-11-04 18:23] LABS: Glucose, Whole Blood 254 mg/dL (60-115)
--- NOTE | 2020-11-04 18:34 | MHC.CARE ---
executive business coach asked for support with finding clothing and shoes for pt, who arrived wearing hospital attire and had no other belongings. This narrative writer found a pair of small pants, sneakers, and a sports bra for pt to wear. Unable to find an appropriate shirt.
--- NOTE | 2020-11-04 19:32 | PC.NURSE ---
Lactic acid drawn and sent down accidentally without a label. Phlebotomy called and this investigative writer was informed that she was unable to draw patient because she had to draw the floor. This investigative writer was then informed that it would be quite awhile before she could get down to draw lactic acid. Lab called and refused to run lactic acid because the specimen was not labeled. I explained that the patient was a hard stick and I was the one who andrew it and sent it. Patient was redrawn and sample sent.
--- NOTE | 2020-11-04 20:05 | MHC.RECOVSUP ---
? Reason for consult Recovery Support o Current location: ED18H o Identified substance use concern: Heroin - Seeking ATS (detox) - Support ? Intervention: o ATS bed search started 7:45pm/completed 8pm o Community resources provided o Harm reduction discussion ? Plan: o <del>Referral</del> <del>to</del> <del>[facility]</del> <del>o</del> <del>Bed</del> <del>search</del> <del>in</del> <del>progress</del> <del>to</del> <del>o</del> <del>Follow</del> <del>up</del> <del>tomorrow</del> <del>o</del> <del>Patient</del> <del>awaiting</del> <del>crisis</del> <del>evaluation</del> o Patient to follow up with [facility] after discharge ? Additional information: Patient requested to go to a detox.. I was able to find patient a bed at [facility] for 10pm.. Head nurse Fax Seun paper work...
[2020-11-04 20:37] LABS: Glucose, Whole Blood 433 mg/dL (60-115)
[2020-11-04] MEDS: Insulin Lispro 100 UNIT/ML 3 ML VIAL 7 UNIT SUBCUT (20:46)
--- NOTE | 2020-11-04 21:17 | PC.NURSE ---
PT RECEIVED LISPRO PER EMAR. PT ADVISED WE WOULD LIKE TO RECHECK POC IN 30 MIN. PT REFUSED, AND REFUSED ADDITIONAL INSULIN IF NEEDED. PT ALSO GOT AND RECEIVED A LEMON ICY. PT ADVISED BY MD & RN THAT THIS IS NOT HELPFUL W/HER HIGH BS. PT CONTINUED TO EAT. D/C PAPERWORK GIVEN, PT AWAITING LIFT FOR RIDE TO DETOX BED IN [place] THAT WAS SET UP BY SOIL TE[employer] PIERO
== END 2020-11-04 21:23 | disposition home or self-care (01) ==
PROVIDERS: Emergency Provider Emergency Medicine
DX: F11.10 Opioid abuse, uncomplicated (principal); F14.10 Cocaine abuse, uncomplicated; E10.65 Type 1 diabetes mellitus with hyperglycemia
CPT/HCPCS: 36415; 80048; 80076; 82009; 82947; 83605; 84702; 85025; 96360; 96361; 99284

== ENCOUNTER 2020-12-19 15:43 | Inpatient (IN) | payer MEDICAID, SELFPAY ==
--- NOTE | ~2020-12-19 | XR_ITS ---
EXAMINATION: XR CHEST CLINICAL INFORMATION: Fever COMPARISON: CT scan 09/11/2020 TECHNIQUE: Frontal view of the chest was obtained. FINDINGS: No cavitated lesions or infiltrate discernible on this portable limited exam. Piercing noted overlying the right chest. No ectopic air. No significant abnormality is noted involving the heart, lungs, mediastinum, bony thorax or soft tissues. XR/XR chest 1V IMPRESSION: Limited imaging demonstrating no discernible lesion.
[2020-12-19 15:49] VITALS: BP 125/76; PULSE 85; RESP 18; TEMP 37.1; O2SAT 100; BMI 19.5
--- NOTE | 2020-12-19 15:51 | ECG_ITS ---
Test Reason : FEVER Blood Pressure : / mmHG Vent. Rate : 084 BPM Atrial Rate : 084 BPM P-R Int : 146 ms QRS Dur : 076 ms QT Int : 408 ms P-R-T Axes : 062 083 056 degrees QTc Int : 482 ms Normal sinus rhythm with sinus arrhythmia Prolonged QT Abnormal ECG When compared with ECG of 23-SEP-2020 20:31, QT has lengthened Referred By: Liliana Rubalcava Electronically Signed By:RUPESH CISNEROS
[2020-12-19 16:12] LABS: Glucose, Whole Blood > 600 mg/dL (60-115)
[2020-12-19] MEDS: Insulin Lispro 100 UNIT/ML 3 ML VIAL 14 UNIT SUBCUT (16:25)
[2020-12-19 16:26] LABS: Appearance Urine CLEAR; Color Urine STRAW; Glucose Urine UA >=1000 MG/DL (NEG); Leukocyte Esterase Urine 1+ (NEG); Nitrite Urine NEG (NEG); PH 5.5 (5.0-8.0); Specific Gravity - Urine <= 1.005 (1.005-1.025); UACC Culture Trigger YES; Urine Blood NEG (NEG); Urine Ketones >=80 MG/DL (NEG); Urine Protein NEG (NEG-TRACE)
--- NOTE | 2020-12-19 16:29 | PC.NURSE ---
brought in by ems: pt incredibly verbally abusive to staff upon arrival. Fuck you I want water now, fuck your triage . Pt orientated to traige process. Due to concerns of endocarditis, dka and IV drug abuse, Dr. Santana to place single lumen to obtain access.
[2020-12-19 16:30] LABS: COVID-19 Test Negative (Negative); IDNOW Serial# 55D5AD1C
--- NOTE | 2020-12-19 16:33 | PC.NURSE ---
Unknown when medication was last taken-pt states she took insulin today/yesterday but is not on last fill list.
[2020-12-19 16:37] LABS: Bacteria Urine 1+ /LPF; RBC Urine 0 /HPF (0); Squamous Epithelial Cell Urine 1+ /LPF
[2020-12-19 16:39] LABS: Amphetamine Screen Urine Not Detected (Not Detect); Barbiturates, Urine Not Detected (Not Detect); Benzodiazepines Screen Urine Not Detected (Not Detect); Cannabinoid Screen Urine Not Detected (Not Detect); Cocaine Screen Urine POSITIVE (Not Detect); Fentanyl, urine POSITIVE (Not Detect); Opiate Screen Urine Not Detected (Not Detect); Phencyclidine Screen Urine Not Detected (Not Detect)
--- NOTE | 2020-12-19 16:45 | PC.NURSE ---
LABS DRAWN BY PROVIDER AT TIME OF IV PLACEMENT. PT LABEL WITH TIME AND MNEMONICS PLACED ON LABS THAT DID NOT HAVE STICKERS.
[2020-12-19 16:54] LABS: Basophils Percent Auto 0.1 % (0-2); Hematocrit 36.9 % (37-47); Hemoglobin 11.8 g/dl (12.0-16.0); Imm Gran Abs Auto 0.15 X10*3/uL (0.00-0.03); Imm Gran Pct Auto 0.7 % (0.0-0.4); Lymphocytes Percent Auto 4.5 % (20-40); MANUAL DIFF FLAG SCAN; Mean Corpuscular Hemoglobin 27.3 pg (27.0-33.0); Mean Corpuscular Volume 85.2 fL (80-98); Mean Platelet Volume 9.8 fL (9.4-12.3); Monocytes Absolute Auto 0.1 X10*3/uL (0.1-1.2); Monocytes Percent Auto 0.6 % (2-11); Neutrophils Absolute Auto 21.1 X10*3/uL (2.0-8.3); Neutrophils Percent Auto 94.1 % (45-73); Platelet Count 429 X10*3/uL (160-400); Red Blood Count 4.33 X10*6/uL (4.20-5.50); Red Cell Distribution Width 15.9 % (11.0-16.0); SCAN SMEAR FLAG 1; White Blood Count 22.4 X10*3/uL (4.8-10.8)
[2020-12-19 17:00] LABS: Venous Blood Gas Refer to POC result
[2020-12-19 17:01] LABS: INTERNATIONAL NORM RATIO 0.9 (0.9-1.1); Prothrombin Time 10.6 SEC (9.9-13.0)
[2020-12-19] MEDS: 0.9 % Sodium Chloride 1,000 ML 999 ML IVCONT ×3 (17:01→17:10)
[2020-12-19 17:04] LABS: Partial Thromboplastin Time 28.5 SEC (24.1-38.0)
[2020-12-19 17:05] LABS: Lactic Acid 1.6 mmol/L (0.5-2.0)
--- NOTE | 2020-12-19 17:09 | ED_ITS ---
HPI - General Adult General Chief complaint: Fever Stated complaint: hyperglycemia Time Seen by Provider: 12/19/20 15:49 Source: patient Mode of arrival: ambulatory Limitations: no limitations History of Present Illness HPI narrative: Patient 25 years old with history of type 1 diabetes noncompliant, polysubstance abuse IV cocaine and heroin, frequent admissions for DKA last admission was on 09/24 with blood sugar of 1100 comes here for not feeling good for the last 2 3 days does not check her blood sugar on arrival blood sugar was more than 600 patient denies any nausea or vomiting feels weak says that she took her insulin in the morning but she did not check her blood sugar no fever no chills no urinary complaints no cough or shortness of breath Related Data Home Medications Medication Instructions Recorded Confirmed insulin glargine 100 unit/mL (3 30 unit SUBCUT BEDTIME 09/24/20 12/19/20 mL) subcutaneous pen (Lantus Solostar U-100 Insulin) insulin lispro 100 unit/mL See Protocol SUBCUT USEASDIRECTD 09/24/20 12/19/20 subcutaneous solution (Humalog U-100 Insulin) quetiapine 100 mg tablet 0.5 - 1 tab PO BEDTIME PRN 12/19/20 12/19/20 quetiapine 50 mg tablet 0.5 - 1 tab PO BID PRN 12/19/20 12/19/20 Allergies Allergy/AdvReac Type Severity Reaction Status Date / Time No Known Allergies Allergy Verified 07/22/20 16:27 Review of Systems Review of Systems: Yes all other systems are reviewed and are negative [facility] Past Medical History Medical History Anxiety Cocaine abuse Diabetes mellitus type 1 Endocarditis Heroin abuse Staphylococcus aureus bacteremia Social History Social History Household Members: None Housing: Homeless Do you presently have visiting nurse or other home services: No Unable to assess alcohol history related to: Refusing to respond Alcohol intake: current Alcohol intake frequency: 3 or more drinks per day Alcohol type: beer, wine and hard liquor Patient Tobacco Use Status: Current everyday Tobacco user Tobacco use type: Cigarette Cigarette Packs Per Day: 1 Cigarettes Per Day: 20.0 Smoked in Last 30 Days: Yes Use of substances other than those prescribed or required for medical reasons: Yes Substance Use Type: Heroin, IV Drugs, Marijuana and Opiates Substance Use Frequency: Daily Last Used Substance: Days (ago) Any prior treatment program specific to substance use: Yes Advance Directives: No Advance Directives Information Provided: Yes Patient : No service: No Current occupational status: unemployed Physical Exam Vital Signs: Vital Signs: Last Vital Signs Temp 97.5 F 12/19/20 23:41 Pulse 52 12/19/20 23:41 Resp 16 12/19/20 23:41 BP 142/82 H 12/19/20 23:41 Pulse Ox 100 12/19/20 23:41 Body Mass Index 19.5 Appearance: Alert. Oriented X3. Moderate distress Eyes: PERRLA, no pallor or icterus ENT: Pharynx normal. Oral Mucosa moist Neck: Normal inspection. Neck supple. CVS: Normal heart rate and rhythm. Pulses normal. Respiratory: No respiratory distress. Equal air entry bilateral, no wheezing/rales/rhonchi Abdomen: Soft and nontender. Bowel sounds are present, no mass palpable, no CVA tenderness Skin: Skin warm and dry. Normal skin color. Normal skin turgor. Multiple abrasions Extremities: No lower extremity edema. No calf tenderness Neuro: Oriented X 3. No motor deficit. No sensory deficit.No cerebellar signs , cranial nerves II-XII intact Medical Decision Making MDM Narrative Medical decision making narrative: Patient diabetic type 1 substance abuser came for increased weakness noticed to have high blood sugar 824 acetone negative but lab showed metabolic acidosis with anion gap of 30 patient responded to insulin and IV fluids repeat labs showed improvement in anion gap blood sugar improved to 287 leukocytosis secondary to leukemoid reaction secondary to volume loss not from sepsis prophylactic Rocephin was given pending cultures and further workup will admit the patient Lab Data Lab results reviewed: Yes I reviewed the patient's lab results. Result diagrams: 12/19/20 16:39 12/19/20 18:55 Labs: Lab Results 12/19/20 12/19/20 12/19/20 Range/Units 16:00 16:02 16:17 WBC (4.8-10.8) X10*3/uL RBC (4.20-5.50) X10*6/uL Hgb (12.0-16.0) g/dl Hct (37-47) % MCV (80-98) fL MCH (27.0-33.0) pg MCHC (31.0-35.0) g/dl RDW (11.0-16.0) % Plt Count (160-400) X10*3/uL MPV (9.4-12.3) fL Immature Gran % (Auto) (0.0-0.4) % Neut % (Auto) (45-73) % Lymph % (Auto) (20-40) % Garland % (Auto) (2-11) % Eos % (Auto) (0-4) % Baso % (Auto) (0-2) % Lymph # (Auto) (1.2-4.9) X10*3/uL Garland # (Auto) (0.1-1.2) X10*3/uL Eos # (Auto) (0.0-0.4) X10*3/uL Baso # (Auto) (0.0-0.2) X10*3/uL Abs Immat Gran (auto) (0.00-0.03) X10*3/uL Absolute Neuts (auto) (2.0-8.3) X10*3/uL Absolute Nucleated RBC (0.0-0.012) X10*3/uL Nucleated RBC % (auto) (0.0-0.2) /100WBC Smear Tech's Comments PT (9.9-13.0) SEC INR (0.9-1.1) APTT (24.1-38.0) SEC VBG pH (7.32-7.43) VBG pCO2 mmHg VBG pO2 mmHg VBG HCO3 (22-26) mmol/L VBG O2 Saturation % VBG Base Excess mmol/L Sodium (135-145) mmol/L Potassium (3.3-5.1) mmol/L Chloride (96-108) mmol/L Carbon Dioxide (22-29) mmol/L Anion Gap (12-20) BUN (9-16) mg/dL Creatinine (0.5-1.4) mg/dL Estim Creat Clear Calc Estimated GFR POC Glucose > 600 H* (60-115) mg/dL Random Glucose (60-115) mg/dL Lactic Acid (0.5-2.0) mmol/L Calcium (8.4-10.2) mg/dL Magnesium (1.6-2.6) mg/dL Total Bilirubin (0.0-1.0) mg/dL Direct Bilirubin (0.0-0.5) mg/dL AST (5-31) U/L ALT (0-31) U/L Alkaline Phosphatase (39-117) U/L Troponin I High Sens (<3.5-17.0) ng/L Total Protein (6.5-8.0) g/dL Albumin (3.5-5.0) g/dL Lipase (8-78) U/L Beta HCG, Quant mIU/mL Urine Color Urine Appearance Urine pH (5.0-8.0) Ur Specific Kimball (1.005-1.025) Urine Protein (NEG-TRACE) MG/DL Urine Glucose (UA) (NEG) MG/DL Urine Ketones (NEG) MG/DL Urine Blood (NEG) Urine Nitrite (NEG) Ur Leukocyte Esterase (NEG) Urine RBC (0) /HPF Urine WBC (0-4) /HPF Ur Squamous Epith Cells /LPF Urine Bacteria /LPF Urine Opiates Screen Not Detected (Not Detect) Urine Fentanyl Screen POSITIVE H (Not Detect) Ur Barbiturates Screen Not Detected (Not Detect) Ur Phencyclidine Scrn Not Detected (Not Detect) Ur Amphetamines Screen Not Detected (Not Detect) U Benzodiazepines Scrn Not Detected (Not Detect) Urine Cocaine Screen POSITIVE H (Not Detect) U Marijuana (THC) Screen Not Detected (Not Detect) Acetone, Qual (Negative) COVID-19 (BRENDA) Negative (Negative) COVID-19 Clin Com See Note 12/19/20 12/19/20 12/19/20 Range/Units 16:17 16:39 16:39 WBC 22.4 H (4.8-10.8) X10*3/uL RBC 4.33 D (4.20-5.50) X10*6/uL Hgb 11.8 L D (12.0-16.0) g/dl Hct 36.9 L D (37-47) % MCV 85.2 (80-98) fL MCH 27.3 (27.0-33.0) pg MCHC 32.0 (31.0-35.0) g/dl RDW 15.9 (11.0-16.0) % Plt Count 429 H (160-400) X10*3/uL MPV 9.8 (9.4-12.3) fL Immature Gran % (Auto) 0.7 H (0.0-0.4) % Neut % (Auto) 94.1 H (45-73) % Lymph % (Auto) 4.5 L (20-40) % Garland % (Auto) 0.6 L (2-11) % Eos % (Auto) 0.0 (0-4) % Baso % (Auto) 0.1 (0-2) % Lymph # (Auto) 1.0 L (1.2-4.9) X10*3/uL Garland # (Auto) 0.1 (0.1-1.2) X10*3/uL Eos # (Auto) 0.0 (0.0-0.4) X10*3/uL Baso # (Auto) 0.0 (0.0-0.2) X10*3/uL Abs Immat Gran (auto) 0.15 H (0.00-0.03) X10*3/uL Absolute Neuts (auto) 21.1 H (2.0-8.3) X10*3/uL Absolute Nucleated RBC 0.000 (0.0-0.012) X10*3/uL Nucleated RBC % (auto) 0.0 (0.0-0.2) /100WBC Smear Tech's Comments VERIFIED PT 10.6 (9.9-13.0) SEC INR 0.9 (0.9-1.1) APTT 28.5 (24.1-38.0) SEC VBG pH (7.32-7.43) VBG pCO2 mmHg VBG pO2 mmHg VBG HCO3 (22-26) mmol/L VBG O2 Saturation % VBG Base Excess mmol/L Sodium (135-145) mmol/L Potassium (3.3-5.1) mmol/L Chloride (96-108) mmol/L Carbon Dioxide (22-29) mmol/L Anion Gap (12-20) BUN (9-16) mg/dL Creatinine (0.5-1.4) mg/dL Estim Creat Clear Calc Estimated GFR POC Glucose (60-115) mg/dL Random Glucose (60-115) mg/dL Lactic Acid (0.5-2.0) mmol/L Calcium (8.4-10.2) mg/dL Magnesium (1.6-2.6) mg/dL Total Bilirubin (0.0-1.0) mg/dL Direct Bilirubin (0.0-0.5) mg/dL AST (5-31) U/L ALT (0-31) U/L Alkaline Phosphatase (39-117) U/L Troponin I High Sens (<3.5-17.0) ng/L Total Protein (6.5-8.0) g/dL Albumin (3.5-5.0) g/dL Lipase (8-78) U/L Beta HCG, Quant mIU/mL Urine Color STRAW Urine Appearance CLEAR Urine pH 5.5 (5.0-8.0) Ur Specific Kimball <= 1.005 (1.005-1.025) Urine Protein NEG (NEG-TRACE) MG/DL Urine Glucose (UA) >=1000 H (NEG) MG/DL Urine Ketones >=80 (NEG) MG/DL Urine Blood NEG (NEG) Urine Nitrite NEG (NEG) Ur Leukocyte Esterase 1+ H (NEG) Urine RBC 0 (0) /HPF Urine WBC 1-4 (0-4) /HPF Ur Squamous Epith Cells 1+ /LPF Urine Bacteria 1+ /LPF Urine Opiates Screen (Not Detect) Urine Fentanyl Screen (Not Detect) Ur Barbiturates Screen (Not Detect) Ur Phencyclidine Scrn (Not Detect) Ur Amphetamines Screen (Not Detect) U Benzodiazepines Scrn (Not Detect) Urine Cocaine Screen (Not Detect) U Marijuana (THC) Screen (Not Detect) Acetone, Qual (Negative) COVID-19 (BRENDA) (Negative) COVID-19 Clin Com 12/19/20 12/19/20 12/19/20 Range/Units 16:39 16:39 16:39 WBC (4.8-10.8) X10*3/uL RBC (4.20-5.50) X10*6/uL Hgb (12.0-16.0) g/dl Hct (37-47) % MCV (80-98) fL MCH (27.0-33.0) pg MCHC (31.0-35.0) g/dl RDW (11.0-16.0) % Plt Count (160-400) X10*3/uL MPV (9.4-12.3) fL Immature Gran % (Auto) (0.0-0.4) % Neut % (Auto) (45-73) % Lymph % (Auto) (20-40) % Garland % (Auto) (2-11) % Eos % (Auto) (0-4) % Baso % (Auto) (0-2) % Lymph # (Auto) (1.2-4.9) X10*3/uL Garland # (Auto) (0.1-1.2) X10*3/uL Eos # (Auto) (0.0-0.4) X10*3/uL Baso # (Auto) (0.0-0.2) X10*3/uL Abs Immat Gran (auto) (0.00-0.03) X10*3/uL Absolute Neuts (auto) (2.0-8.3) X10*3/uL Absolute Nucleated RBC (0.0-0.012) X10*3/uL Nucleated RBC % (auto) (0.0-0.2) /100WBC Smear Tech's Comments PT (9.9-13.0) SEC INR (0.9-1.1) APTT (24.1-38.0) SEC VBG pH (7.32-7.43) VBG pCO2 mmHg VBG pO2 mmHg VBG HCO3 (22-26) mmol/L VBG O2 Saturation % VBG Base Excess mmol/L Sodium 131 L (135-145) mmol/L Potassium 4.9 (3.3-5.1) mmol/L Chloride 91 L (96-108) mmol/L Carbon Dioxide 15 L (22-29) mmol/L Anion Gap 30 H (12-20) BUN 16 (9-16) mg/dL Creatinine 1.41 H (0.5-1.4) mg/dL Estim Creat Clear Calc 44.4 Estimated GFR 46 POC Glucose (60-115) mg/dL Random Glucose 824 H* (60-115) mg/dL Lactic Acid 1.6 (0.5-2.0) mmol/L Calcium 9.6 (8.4-10.2) mg/dL Magnesium 1.9 (1.6-2.6) mg/dL Total Bilirubin 0.5 (0.0-1.0) mg/dL Direct Bilirubin 0.2 (0.0-0.5) mg/dL AST 62 H (5-31) U/L ALT 52 H (0-31) U/L Alkaline Phosphatase 139 H D (39-117) U/L Troponin I High Sens < 3.5 (<3.5-17.0) ng/L Total Protein 7.5 (6.5-8.0) g/dL Albumin 3.7 (3.5-5.0) g/dL Lipase 23 (8-78) U/L Beta HCG, Quant < 2 mIU/mL Urine Color Urine Appearance Urine pH (5.0-8.0) Ur Specific Kimball (1.005-1.025) Urine Protein (NEG-TRACE) MG/DL Urine Glucose (UA) (NEG) MG/DL Urine Ketones (NEG) MG/DL Urine Blood (NEG) Urine Nitrite (NEG) Ur Leukocyte Esterase (NEG) Urine RBC (0) /HPF Urine WBC (0-4) /HPF Ur Squamous Epith Cells /LPF Urine Bacteria /LPF Urine Opiates Screen (Not Detect) Urine Fentanyl Screen (Not Detect) Ur Barbiturates Screen (Not Detect) Ur Phencyclidine Scrn (Not Detect) Ur Amphetamines Screen (Not Detect) U Benzodiazepines Scrn (Not Detect) Urine Cocaine Screen (Not Detect) U Marijuana (THC) Screen (Not Detect) Acetone, Qual Negative (Negative) COVID-19 (BRENDA) (Negative) COVID-19 Clin Com 12/19/20 12/19/20 12/19/20 Range/Units 16:51 17:41 18:49 WBC (4.8-10.8) X10*3/uL RBC (4.20-5.50) X10*6/uL Hgb (12.0-16.0) g/dl Hct (37-47) % MCV (80-98) fL MCH (27.0-33.0) pg MCHC (31.0-35.0) g/dl RDW (11.0-16.0) % Plt Count (160-400) X10*3/uL MPV (9.4-12.3) fL Immature Gran % (Auto) (0.0-0.4) % Neut % (Auto) (45-73) % Lymph % (Auto) (20-40) % Garland % (Auto) (2-11) % Eos % (Auto) (0-4) % Baso % (Auto) (0-2) % Lymph # (Auto) (1.2-4.9) X10*3/uL Garland # (Auto) (0.1-1.2) X10*3/uL Eos # (Auto) (0.0-0.4) X10*3/uL Baso # (Auto) (0.0-0.2) X10*3/uL Abs Immat Gran (auto) (0.00-0.03) X10*3/uL Absolute Neuts (auto) (2.0-8.3) X10*3/uL Absolute Nucleated RBC (0.0-0.012) X10*3/uL Nucleated RBC % (auto) (0.0-0.2) /100WBC Smear Tech's Comments PT (9.9-13.0) SEC INR (0.9-1.1) APTT (24.1-38.0) SEC VBG pH 7.40 (7.32-7.43) VBG pCO2 27 mmHg VBG pO2 72 mmHg VBG HCO3 17 L (22-26) mmol/L VBG O2 Saturation 92.0 % VBG Base Excess -5.5 mmol/L Sodium (135-145) mmol/L Potassium (3.3-5.1) mmol/L Chloride (96-108) mmol/L Carbon Dioxide (22-29) mmol/L Anion Gap (12-20) BUN (9-16) mg/dL Creatinine (0.5-1.4) mg/dL Estim Creat Clear Calc Estimated GFR POC Glucose 587 H* 420 H* (60-115) mg/dL Random Glucose (60-115) mg/dL Lactic Acid (0.5-2.0) mmol/L Calcium (8.4-10.2) mg/dL Magnesium (1.6-2.6) mg/dL Total Bilirubin (0.0-1.0) mg/dL Direct Bilirubin (0.0-0.5) mg/dL AST (5-31) U/L ALT (0-31) U/L Alkaline Phosphatase (39-117) U/L Troponin I High Sens (<3.5-17.0) ng/L Total Protein (6.5-8.0) g/dL Albumin (3.5-5.0) g/dL Lipase (8-78) U/L Beta HCG, Quant mIU/mL Urine Color Urine Appearance Urine pH (5.0-8.0) Ur Specific Kimball (1.005-1.025) Urine Protein (NEG-TRACE) MG/DL Urine Glucose (UA) (NEG) MG/DL Urine Ketones (NEG) MG/DL Urine Blood (NEG) Urine Nitrite (NEG) Ur Leukocyte Esterase (NEG) Urine RBC (0) /HPF Urine WBC (0-4) /HPF Ur Squamous Epith Cells /LPF Urine Bacteria /LPF Urine Opiates Screen (Not Detect) Urine Fentanyl Screen (Not Detect) Ur Barbiturates Screen (Not Detect) Ur Phencyclidine Scrn (Not Detect) Ur Amphetamines Screen (Not Detect) U Benzodiazepines Scrn (Not Detect) Urine Cocaine Screen (Not Detect) U Marijuana (THC) Screen (Not Detect) Acetone, Qual (Negative) COVID-19 (BRENDA) (Negative) COVID-19 Clin Com 12/19/20 12/19/20 12/19/20 Range/Units 18:55 19:02 19:41 WBC (4.8-10.8) X10*3/uL RBC (4.20-5.50) X10*6/uL Hgb (12.0-16.0) g/dl Hct (37-47) % MCV (80-98) fL MCH (27.0-33.0) pg MCHC (31.0-35.0) g/dl RDW (11.0-16.0) % Plt Count (160-400) X10*3/uL MPV (9.4-12.3) fL Immature Gran % (Auto) (0.0-0.4) % Neut % (Auto) (45-73) % Lymph % (Auto) (20-40) % Garland % (Auto) (2-11) % Eos % (Auto) (0-4) % Baso % (Auto) (0-2) % Lymph # (Auto) (1.2-4.9) X10*3/uL Garland # (Auto) (0.1-1.2) X10*3/uL Eos # (Auto) (0.0-0.4) X10*3/uL Baso # (Auto) (0.0-0.2) X10*3/uL Abs Immat Gran (auto) (0.00-0.03) X10*3/uL Absolute Neuts (auto) (2.0-8.3) X10*3/uL Absolute Nucleated RBC (0.0-0.012) X10*3/uL Nucleated RBC % (auto) (0.0-0.2) /100WBC Smear Tech's Comments PT (9.9-13.0) SEC INR (0.9-1.1) APTT (24.1-38.0) SEC VBG pH 7.47 H (7.32-7.43) VBG pCO2 31 mmHg VBG pO2 64 mmHg VBG HCO3 23 (22-26) mmol/L VBG O2 Saturation 90.0 % VBG Base Excess 0.5 mmol/L Sodium 138 (135-145) mmol/L Potassium 4.2 (3.3-5.1) mmol/L Chloride 103 (96-108) mmol/L Carbon Dioxide 20 L (22-29) mmol/L Anion Gap 19 (12-20) BUN 12 (9-16) mg/dL Creatinine 0.93 (0.5-1.4) mg/dL Estim Creat Clear Calc 67.3 Estimated GFR > 60 POC Glucose 381 H* (60-115) mg/dL Random Glucose 435 H* (60-115) mg/dL Lactic Acid (0.5-2.0) mmol/L Calcium 8.5 D (8.4-10.2) mg/dL Magnesium (1.6-2.6) mg/dL Total Bilirubin (0.0-1.0) mg/dL Direct Bilirubin (0.0-0.5) mg/dL AST (5-31) U/L ALT (0-31) U/L Alkaline Phosphatase (39-117) U/L Troponin I High Sens (<3.5-17.0) ng/L Total Protein (6.5-8.0) g/dL Albumin (3.5-5.0) g/dL Lipase (8-78) U/L Beta HCG, Quant mIU/mL Urine Color Urine Appearance Urine pH (5.0-8.0) Ur Specific Kimball (1.005-1.025) Urine Protein (NEG-TRACE) MG/DL Urine Glucose (UA) (NEG) MG/DL Urine Ketones (NEG) MG/DL Urine Blood (NEG) Urine Nitrite (NEG) Ur Leukocyte Esterase (NEG) Urine RBC (0) /HPF Urine WBC (0-4) /HPF Ur Squamous Epith Cells /LPF Urine Bacteria /LPF Urine Opiates Screen (Not Detect) Urine Fentanyl Screen (Not Detect) Ur Barbiturates Screen (Not Detect) Ur Phencyclidine Scrn (Not Detect) Ur Amphetamines Screen (Not Detect) U Benzodiazepines Scrn (Not Detect) Urine Cocaine Screen (Not Detect) U Marijuana (THC) Screen (Not Detect) Acetone, Qual (Negative) COVID-19 (BRENDA) (Negative) COVID-19 Clin Com ECG Data Attestation: I personally reviewed and interpreted this ECG as follows: Interpretation: Absence rhythm QT interval prolonged 482 milliseconds no significant change from the previous EKGs no acute ischemia Discharge Plan Discharge Clinical Impression: Acute hyperglycemia, Metabolic acidosis, Weakness, Substance abuse Patient Disposition: Admitted As Inpatient Interventions: Admission Worksheet (ED) Last Done: 12/19/20 23:46 Discharge Date/Time: 12/19/20 23:47
[2020-12-19] MEDS: Insulin Regular, Human 100 UNIT/ML 3 ML VIAL 10 UNIT IVPUSH (17:11)
[2020-12-19 17:13] VITALS: BP 123/75; PULSE 87; RESP 26; O2SAT 100
[2020-12-19 17:14] LABS: Troponin-I High Sensitivity < 3.5 ng/L (<3.5-17.0)
[2020-12-19 17:16] LABS: SLIDE REVIEW VERIFIED
[2020-12-19 17:17] LABS: HCG Quantitative < 2 mIU/mL
[2020-12-19 17:34] LABS: Alanine Aminotransferase 52 U/L (0-31); Albumin Level 3.7 g/dL (3.5-5.0); Alkaline Phosphatase 139 U/L (39-117); Anion Gap 30 (12-20); Aspartate Amino Transferase 62 U/L (5-31); Bilirubin Direct 0.2 mg/dL (0.0-0.5); Bilirubin Total 0.5 mg/dL (0.0-1.0); Blood Urea Nitrogen 16 mg/dL (9-16); Calcium 9.6 mg/dL (8.4-10.2); Carbon Dioxide 15 mmol/L (22-29); Chloride 91 mmol/L (96-108); Creatinine Clr Calc Pharmacy 44.4; Estimated Glomerular Filt Rate 46; Lipase 23 U/L (8-78); Magnesium 1.9 mg/dL (1.6-2.6); Potassium 4.9 mmol/L (3.3-5.1); Sodium 131 mmol/L (135-145); Total Protein 7.5 g/dL (6.5-8.0)
[2020-12-19 17:45] LABS: Glucose, Whole Blood 587 mg/dL (60-115)
[2020-12-19 17:48] LABS: Glucose Random 824 mg/dL (60-115)
[2020-12-19 18:03] LABS: Acetone, serum QL Negative (Negative)
[2020-12-19 18:24] VITALS: BP 126/77; PULSE 87; RESP 16; O2SAT 99
[2020-12-19 18:37] LABS: VBG Base Excess -5.5 mmol/L; VBG HCO3 17 mmol/L (22-26); VBG pCO2 27 mmHg; VBG pO2 72 mmHg
[2020-12-19 18:53] LABS: Glucose, Whole Blood 420 mg/dL (60-115)
--- NOTE | 2020-12-19 19:00 | PC.NURSE ---
REPEAT VBG AND BMP DRAWN BY RN FROM IV SITE PER PROVIDER.
[2020-12-19 19:07] LABS: VBG Base Excess 0.5 mmol/L; VBG HCO3 23 mmol/L (22-26); VBG pCO2 31 mmHg; VBG pH 7.47 (7.32-7.43); VBG pO2 64 mmHg
[2020-12-19 19:12] LABS: Venous Blood Gas Refer to POC result
[2020-12-19 19:24] LABS: Anion Gap 19 (12-20); Blood Urea Nitrogen 12 mg/dL (9-16); Calcium 8.5 mg/dL (8.4-10.2); Carbon Dioxide 20 mmol/L (22-29); Chloride 103 mmol/L (96-108); Creatinine Clr Calc Pharmacy 67.3; Estimated Glomerular Filt Rate > 60; Glucose Random 435 mg/dL (60-115); Potassium 4.2 mmol/L (3.3-5.1); Sodium 138 mmol/L (135-145)
[2020-12-19 19:45] LABS: Glucose, Whole Blood 381 mg/dL (60-115)
[2020-12-19] MEDS: Insulin Glargine,Hum.rec.anlog 100 UNIT/ML 10 ML VIAL 30 UNIT SUBCUT (19:59)
[2020-12-19 20:00] VITALS: BP 127/70; PULSE 67; RESP 18; TEMP 37.2; O2SAT 100
[2020-12-19] MEDS: cefTRIAXone sodium 1 GM in 0.9 % Sodium Chloride 50 ML IV (20:27)
[2020-12-19] MEDS: 0.9 % Sodium Chloride 1,000 ML 125 ML IVCONT (20:29)
--- NOTE | 2020-12-19 20:53 | MHC.CM.PN ---
CM met with admitted pt with bed pending. Pt known to this CM. Pt incontinent of urine. C/O cold. CM assisted RN with changing bed linens and providing warm blankets. Pt only responded to CM when asked if CM could contact her mother, Emily Morgan ([phone]). Pt refused. Otherwise, pt would not participate in interview, expect to verify that she was homeless and living on the street. Pt very emaciated and unkempt. Hair dirty, body with sores and obvious track castelan. Record reviewed. Pt does not have PCP or HCP. Pt with positive drug screen for fentanyl and cocaine. Pt aware recovery team will see her while hospitalized. Pt encouraged to accept help. Pt would not participate in discharge planning. CM to follow for d/c needs.
--- NOTE | 2020-12-19 22:38 | P.HPHOSP_ITS ---
History of Present Illness Date of Service: 12/19/20 Chief Complaint: Hyperglycemia 25-year-old female with a past medical history of type 1 diabetes, polysubstance abuse, heroin abuse/cocaine abuse, history of Staph aureus bacteremia, endocarditis, anxiety, recent admission to the hospital for DKA presented to the hospital with a chief complaint of hyperglycemia. History limited as pt denied to talk; Patient has not been complaint with her home insulin. Review of all other systems is negative except mentioned above ER course: Per ER team patient noted to have significant elevated WBC; blood glucose noted to be in 500s; given subcutaneous insulin, IV fluids, IV ceftriaxone. Admitted to the hospital for further management. [facility] Medical History Anxiety Cocaine abuse Diabetes mellitus type 1 Endocarditis Heroin abuse Staphylococcus aureus bacteremia Social History Household Members: Unknown / Unable to assess Housing: Homeless Do you presently have visiting nurse or other home services: No Unable to assess alcohol history related to: Unable to respond Alcohol intake: current Alcohol intake frequency: 3 or more drinks per day Alcohol type: beer, wine and hard liquor Patient Tobacco Use Status: Current everyday Tobacco user Tobacco use type: Cigarette Cigarette Packs Per Day: 1 Cigarettes Per Day: 20.0 Smoked in Last 30 Days: Yes Use of substances other than those prescribed or required for medical reasons: Unable to respond Substance Use Type: Heroin, IV Drugs, Marijuana and Opiates Substance Use Frequency: Daily Last Used Substance: Days (ago) Any prior treatment program specific to substance use: Yes Advance Directives: No Advance Directives Information Provided: Yes Do you have thoughts of harming others: None Do you have a plan to hurt others: No Plan Recently lost weight without trying: Unsure Patient : No service: No Current occupational status: unemployed Meds Allergies Allergy/AdvReac Type Severity Reaction Status Date / Time No Known Allergies Allergy Verified 07/22/20 16:27 Active Medications: Current Medications Generic Name Dose Route Start Last Admin Trade Name Freq PRN Reason Stop Dose Admin Dextrose 25 gm 12/19/20 22:36 Dextrose 50 % 25 Gm/50 Ml Vial IVPUSH Q15M PRN per Hypoglycemia Standing Ord. Protocol Glucose 15 gm 12/19/20 22:36 Glucose Gel 15 Gm Gel..Gram. PO Q15M PRN per Hypoglycemia Standing Ord. Protocol Sodium Chloride 1,000 mls @ 125 mls/hr 12/19/20 20:15 12/19/20 20:29 Ns IVCONT 125 mls/hr .Q8H MIKKI Administration Vancomycin HCl 1,000 mg/ 270 mls @ 270 mls/hr 12/19/20 22:45 Sodium Chloride IV Q12H [facility] Insulin Glargine 30 unit 12/20/20 21:00 Insulin Glargine,Hum.Rec.Anlog 100 Unit/Ml 10 Ml Vial SUBCUT BEDTIME [facility] Insulin Human Lispro 0 unit 12/20/20 07:30 Insulin Lispro 100 Unit/Ml 3 Ml Vial SUBCUT QIDACHS [facility] Protocol Pharmacy Consult 1 each 12/19/20 15:50 Consult Rx Perform Med Rec MISCELLANE ONCE PRN Consult order Pharmacy Consult 1 each 12/19/20 22:34 Consult Rx Vancomycin Dosing MISCELLANE DAILY PRN Consult order Home Medications Medication Instructions Recorded Confirmed Last Taken Type insulin glargine 100 unit/mL (3 30 unit SUBCUT BEDTIME 09/24/20 12/19/20 Unknown History mL) subcutaneous pen (Lantus Solostar U-100 Insulin) insulin lispro 100 unit/mL See Protocol SUBCUT USEASDIRECTD 09/24/20 12/19/20 Unknown History subcutaneous solution (Humalog U-100 Insulin) quetiapine 100 mg tablet 0.5 - 1 tab PO BEDTIME PRN 12/19/20 12/19/20 Unknown History quetiapine 50 mg tablet 0.5 - 1 tab PO BID PRN 12/19/20 12/19/20 Unknown History Physical Exam Vital Signs and Narrative: Vital Signs: Last Vital Signs Temp 99.0 F 12/19/20 20:00 Pulse 67 12/19/20 20:00 Resp 18 12/19/20 20:00 BP 127/70 12/19/20 20:00 Pulse Ox 100 12/19/20 20:00 Body Mass Index 19.5 pt denied physical exam Gen: Appears be in no acute distress HEENT: NCAT, Moist mucosa. Pulmonary: breathing comfortably Neuro: Alert and awake. Integumentary: noted scattered healing ulcers on extremities and face. Results Labs CBC and Chem 7: 12/19/20 16:39 12/19/20 18:55 Labs: Laboratory Results - last 24 hr 12/19/20 12/19/20 12/19/20 16:00 16:02 16:17 MCV MCH MCHC RDW Plt Count MPV Immature Gran % (Auto) Neut % (Auto) Lymph % (Auto) [place] % (Auto) Eos % (Auto) Baso % (Auto) Lymph # (Auto) [place] # (Auto) Eos # (Auto) Baso # (Auto) Abs Immat Gran (auto) Absolute Neuts (auto) Absolute Nucleated RBC Nucleated RBC % (auto) Smear Tech's Comments PT INR APTT VBG pH VBG pCO2 VBG pO2 VBG HCO3 VBG O2 Saturation VBG Base Excess Anion Gap Estim Creat Clear Calc Estimated GFR POC Glucose > 600 H* Random Glucose Lactic Acid Calcium Magnesium Total Bilirubin Direct Bilirubin AST ALT Alkaline Phosphatase Troponin I High Sens Total Protein Albumin Lipase Beta HCG, Quant Urine Color Urine Appearance Urine pH Ur Specific [place] Urine Protein Urine Glucose (UA) Urine Ketones Urine Blood Urine Nitrite Ur Leukocyte Esterase Urine RBC Urine WBC Ur Squamous Epith Cells Urine Bacteria Urine Opiates Screen Not Detected Urine Fentanyl Screen POSITIVE H Ur Barbiturates Screen Not Detected Ur Phencyclidine Scrn Not Detected Ur Amphetamines Screen Not Detected U Benzodiazepines Scrn Not Detected Urine Cocaine Screen POSITIVE H U Marijuana (THC) Screen Not Detected Acetone, Qual COVID-19 (BRENDA) Negative COVID-19 Clin Com See Note 12/19/20 12/19/20 12/19/20 16:17 16:39 16:39 MCV 85.2 MCH 27.3 MCHC 32.0 RDW 15.9 Plt Count 429 H MPV 9.8 Immature Gran % (Auto) 0.7 H Neut % (Auto) 94.1 H Lymph % (Auto) 4.5 L [place] % (Auto) 0.6 L Eos % (Auto) 0.0 Baso % (Auto) 0.1 Lymph # (Auto) 1.0 L [place] # (Auto) 0.1 Eos # (Auto) 0.0 Baso # (Auto) 0.0 Abs Immat Gran (auto) 0.15 H Absolute Neuts (auto) 21.1 H Absolute Nucleated RBC 0.000 Nucleated RBC % (auto) 0.0 Smear Tech's Comments VERIFIED PT 10.6 INR 0.9 APTT 28.5 VBG pH VBG pCO2 VBG pO2 VBG HCO3 VBG O2 Saturation VBG Base Excess Anion Gap Estim Creat Clear Calc Estimated GFR POC Glucose Random Glucose Lactic Acid Calcium Magnesium Total Bilirubin Direct Bilirubin AST ALT Alkaline Phosphatase Troponin I High Sens Total Protein Albumin Lipase Beta HCG, Quant Urine Color STRAW Urine Appearance CLEAR Urine pH 5.5 Ur Specific [place] <= 1.005 Urine Protein NEG Urine Glucose (UA) >=1000 H Urine Ketones >=80 Urine Blood NEG Urine Nitrite NEG Ur Leukocyte Esterase 1+ H Urine RBC 0 Urine WBC 1-4 Ur Squamous Epith Cells 1+ Urine Bacteria 1+ Urine Opiates Screen Urine Fentanyl Screen Ur Barbiturates Screen Ur Phencyclidine Scrn Ur Amphetamines Screen U Benzodiazepines Scrn Urine Cocaine Screen U Marijuana (THC) Screen Acetone, Qual COVID-19 (BRENDA) COVID-[place] 12/19/20 12/19/20 12/19/20 16:39 16:39 16:39 MCV MCH MCHC RDW Plt Count MPV Immature Gran % (Auto) Neut % (Auto) Lymph % (Auto) [place] % (Auto) Eos % (Auto) Baso % (Auto) Lymph # (Auto) [place] # (Auto) Eos # (Auto) Baso # (Auto) Abs Immat Gran (auto) Absolute Neuts (auto) Absolute Nucleated RBC Nucleated RBC % (auto) Smear Tech's Comments PT INR APTT VBG pH VBG pCO2 VBG pO2 VBG HCO3 VBG O2 Saturation VBG Base Excess Anion Gap 30 H Estim Creat Clear Calc 44.4 Estimated GFR 46 POC Glucose Random Glucose 824 H* Lactic Acid 1.6 Calcium 9.6 Magnesium 1.9 Total Bilirubin 0.5 Direct Bilirubin 0.2 AST 62 H ALT 52 H Alkaline Phosphatase 139 H D Troponin I High Sens < 3.5 Total Protein 7.5 Albumin 3.7 Lipase 23 Beta HCG, Quant < 2 Urine Color Urine Appearance Urine pH Ur Specific [place] Urine Protein Urine Glucose (UA) Urine Ketones Urine Blood Urine Nitrite Ur Leukocyte Esterase Urine RBC Urine WBC Ur Squamous Epith Cells Urine Bacteria Urine Opiates Screen Urine Fentanyl Screen Ur Barbiturates Screen Ur Phencyclidine Scrn Ur Amphetamines Screen U Benzodiazepines Scrn Urine Cocaine Screen U Marijuana (THC) Screen Acetone, Qual Negative COVID-19 (BRENDA) COVID-19 [employer] Com 12/19/20 12/19/20 12/19/20 16:51 17:41 18:49 MCV MCH MCHC RDW Plt Count MPV Immature Gran % (Auto) Neut % (Auto) Lymph % (Auto) [place] % (Auto) Eos % (Auto) Baso % (Auto) Lymph # (Auto) [place] # (Auto) Eos # (Auto) Baso # (Auto) Abs Immat Gran (auto) Absolute Neuts (auto) Absolute Nucleated RBC Nucleated RBC % (auto) Smear Tech's Comments PT INR APTT VBG pH 7.40 VBG pCO2 27 VBG pO2 72 VBG HCO3 17 L VBG O2 Saturation 92.0 VBG Base Excess -5.5 Anion Gap Estim Creat Clear Calc Estimated GFR POC Glucose 587 H* 420 H* Random Glucose Lactic Acid Calcium Magnesium Total Bilirubin Direct Bilirubin AST ALT Alkaline Phosphatase Troponin I High Sens Total Protein Albumin Lipase Beta HCG, Quant Urine Color Urine Appearance Urine pH Ur Specific [place] Urine Protein Urine Glucose (UA) Urine Ketones Urine Blood Urine Nitrite Ur Leukocyte Esterase Urine RBC Urine WBC Ur Squamous Epith Cells Urine Bacteria Urine Opiates Screen Urine Fentanyl Screen Ur Barbiturates Screen Ur Phencyclidine Scrn Ur Amphetamines Screen U Benzodiazepines Scrn Urine Cocaine Screen U Marijuana (THC) Screen Acetone, Qual COVID-19 (BRENDA) COVID-19 Clin Com 12/19/20 12/19/20 12/19/20 18:55 19:02 19:41 MCV MCH MCHC RDW Plt Count MPV Immature Gran % (Auto) Neut % (Auto) Lymph % (Auto) [place] % (Auto) Eos % (Auto) Baso % (Auto) Lymph # (Auto) [place] # (Auto) Eos # (Auto) Baso # (Auto) Abs Immat Gran (auto) Absolute Neuts (auto) Absolute Nucleated RBC Nucleated RBC % (auto) Smear Tech's Comments PT INR APTT VBG pH 7.47 H VBG pCO2 31 VBG pO2 64 VBG HCO3 23 VBG O2 Saturation 90.0 VBG Base Excess 0.5 Anion Gap 19 Estim Creat Clear Calc 67.3 Estimated GFR > 60 POC Glucose 381 H* Random Glucose 435 H* Lactic Acid Calcium 8.5 D Magnesium Total Bilirubin Direct Bilirubin AST ALT Alkaline Phosphatase Troponin I High Sens Total Protein Albumin Lipase Beta HCG, Quant Urine Color Urine Appearance Urine pH Ur Specific [place] Urine Protein Urine Glucose (UA) Urine Ketones Urine Blood Urine Nitrite Ur Leukocyte Esterase Urine RBC Urine WBC Ur Squamous Epith Cells Urine Bacteria Urine Opiates Screen Urine Fentanyl Screen Ur Barbiturates Screen Ur Phencyclidine Scrn Ur Amphetamines Screen U Benzodiazepines Scrn Urine Cocaine Screen U Marijuana (THC) Screen Acetone, Qual COVID-19 (BRENDA) COVID-19 Clin Com Imaging Radiologist's Impressions: Impressions Chest X-Ray 12/19/20 15:51 IMPRESSION: Limited imaging demonstrating no discernible lesion. Assessment and Plan (1) Acute hyperglycemia: Status: Acute 25-year-old female with a past medical history of type 1 diabetes, polysubstance abuse, heroin abuse/cocaine abuse, history of Staph aureus bact eremia, endocarditis, anxiety, recent admission to the hospital for DKA presented to the hospital with a chief complaint of hyperglycemia. Diabetes/hyperglycemia: Patient noncompliant with her home regimen. Patient would benefit Diabetes Education. Nutrition consult. Counseled on the importance of medication adherence Will continue the patient on Lantus 30 units at bedtime and insulin sliding scale. Patient currently not in DKA. IV fluids. Leukocytosis: Patient had low-grade temperature of 99? F. no obvious signs of cellulitis. Blood cultures have been sent. Continue vancomycin. Patient has prior history of Staph bacteremia/endocarditis. Id consult. History of polysubstance abuse/heroin abuse: Addiction Medicine consult. COWS protocol. Clonidine p.r.n. DVT prophylaxis: SCD Boots Code status: Full code Quality Stroke Does the patient have a stroke diagnosis?: No VTE Prior VTE?: No VTE Risk Level:: Medical - moderate - high VTE Device Contraindication: N/A - Device Ordered VTE Drug Contraindication: Treatment Not Indicated
[2020-12-19] MEDS: 0.9 % Sodium Chloride 1,000 ML 100 ML IVCONT (22:58)
--- NOTE | 2020-12-19 22:58 | PC.NURSE ---
NS 125ML/HR TITRATED TO 100ML/HR PER HOSPITALIST ORDER.
--- NOTE | 2020-12-19 23:15 | PC.NURSE ---
First call to med surg. Reji culver.
[2020-12-19 23:22] LABS: Glucose, Whole Blood 368 mg/dL (60-115)
[2020-12-19 23:41] VITALS: BP 142/82; PULSE 52; RESP 16; TEMP 36.4; O2SAT 100
[2020-12-19 23:57] LABS: Glucose, Whole Blood 287 mg/dL (60-115)
[2020-12-19] MEDS: vancomycin HCL 750 MG in 0.9 % Sodium Chloride 250 ML 265 MG IV (23:58)
[2020-12-20] VITALS (7 sets, daily range): BP systolic 123–145; BP diastolic 79–87; PULSE 57–102; RESP 16–19; TEMP 36–37.4; O2SAT 99–100
[2020-12-20] MEDS: ondansetron HCL 4 MG/2 ML VIAL IVPUSH (05:30)
[2020-12-20] MEDS: Pantoprazole Sodium 40 MG/10 ML VIAL IVPUSH ×2 (05:31→16:53)
[2020-12-20] MEDS: 0.9 % Sodium Chloride 1,000 ML 100 ML IVCONT ×2 (07:29→16:52)
[2020-12-20] MEDS: Insulin Lispro 100 UNIT/ML 3 ML VIAL SUBCUT ×3 (07:47→16:52)
[2020-12-20 07:57] LABS: Glucose, Whole Blood 311 mg/dL (60-115)
--- NOTE | 2020-12-20 11:06 | P.PNIM_ITS ---
Progress Note: A&P (1) Acute hyperglycemia: Status: Acute (2) Staphylococcus aureus bacteremia: Status: Acute Assessment and Plan: 25-year-old female with a past medical history of type 1 diabetes, polysubstance abuse, heroin abuse/cocaine abuse, history of Staph aureus bacteremia, endocarditis, anxiety, recent admission to the hospital for DKA presented to the hospital with a chief complaint of hyperglycemia. Bacteremia. GPC 2/2 Hx of IVDA Continue vancomycin follow cx for species ECHO ID Diabetes/hyperglycemia. Patient noncompliant with her home regimen.? Patient would benefit Diabetes Education.? Nutrition consult. Counseled on the importance of medication adherence Will continue the patient on Lantus 30 units at bedtime and insulin sliding scale. Patient currently not in DKA. IV fluids. History of polysubstance abuse/heroin abuse Addiction Medicine consult.? COWS protocol.? Clonidine p.r.n. DVT prophylaxis SCD Boots Code status Full code? Subjective Subjective Date of Service: 12/20/20 Review of Systems Follow up bacteremia Sleeping vomited on her sheets Physical Exam Vital Signs: Vital Signs: Last Vital Signs Temp 97.7 F 12/20/20 07:39 Pulse 102 H 12/20/20 07:39 Resp 18 12/20/20 07:39 BP 142/85 H 12/20/20 07:39 Pulse Ox 100 12/20/20 07:39 Body Mass Index 19.5 Appearing in no acute distress lung sounds are clear to auscultation heart regular rate rhythm, clear S1, S2 positive bowel sounds, abdomen is soft, nontender neuro patient is alert x3, no focal deficits Scabs to face and legs, very thin Objective Data Current Medications Generic Name Dose Route Start Last Admin Trade Name Felipeq PRN Reason Stop Dose Admin Acetaminophen 650 mg 12/19/20 22:36 Acetaminophen 325 Mg Tablet PO Q6H PRN Pain, Mild (Pain Scale 1-3) Clonidine HCl 0.1 mg 12/19/20 22:44 Clonidine Hcl 0.1 Mg Tablet PO BID PRN anxiety/restlessness Protocol Dextrose 25 gm 12/19/20 22:36 Dextrose 50 % 25 Gm/50 Ml Vial IVPUSH Q15M PRN per Hypoglycemia Standing Ord. Protocol Glucose 15 gm 12/19/20 22:36 Glucose Gel 15 Gm Gel..Gram. PO Q15M PRN per Hypoglycemia Standing Ord. Protocol Sodium Chloride 1,000 mls @ 125 mls/hr 12/19/20 20:15 12/20/20 05:29 Ns IVCONT Infused .Q8H [facility] Infusion Sodium Chloride 1,000 mls @ 100 mls/hr 12/19/20 22:45 12/20/20 07:29 Ns IVCONT 100 mls/hr .Q10H MIKKI Administration Vancomycin HCl 750 mg/ Sodium 265 mls @ 265 mls/hr 12/19/20 23:00 12/20/20 01:10 Chloride IV Infused Q12H MIKKI Infusion Insulin Glargine 30 unit 12/20/20 21:00 Insulin Glargine,Hum.Rec.Anlog 100 Unit/Ml 10 Ml Vial SUBCUT BEDTIME [facility] Insulin Human Lispro 0 unit 12/20/20 07:30 12/20/20 07:47 Insulin Lispro 100 Unit/Ml 3 Ml Vial SUBCUT 8 unit QIDACHS [facility] Administration Protocol Melatonin 6 mg 12/19/20 22:36 Melatonin 3 Mg Tablet PO BEDTIME PRN Insomnia Ondansetron HCl 4 mg 12/20/20 02:20 12/20/20 05:30 Ondansetron Hcl 4 Mg/2 Ml Vial IVPUSH 4 mg Q8H PRN Administration Nausea and Vomiting Oxycodone HCl 5 mg 12/19/20 22:36 Oxycodone Hcl Immed Release 5 Mg Tablet PO Q6H PRN Pain, Severe (Pain Scale 7-10) Pantoprazole Sodium 40 mg 12/20/20 06:30 12/20/20 05:31 Pantoprazole Sodium 40 Mg/10 Ml Vial IVPUSH 40 mg BID@0630,1630 [facility] Administration Pharmacy Consult 1 each 12/19/20 15:50 Consult Rx Perform Med Rec MISCELLANE ONCE PRN Consult order Pharmacy Consult 1 each 12/19/20 22:34 Consult Rx Vancomycin Dosing MISCELLANE DAILY PRN Consult order Sodium Chloride 3 ml 12/20/20 00:00 12/20/20 07:37 0.9 % Sodium Chloride Flush 3 Ml Syringe IVFLUSH Not Given QSHIFT [facility] Labs CBC & Chem 7: 12/19/20 16:39 12/19/20 18:55 Labs: Laboratory Results - last 24 hr 12/19/20 12/19/20 12/19/20 16:00 16:02 16:17 MCV MCH MCHC RDW Plt Count MPV Immature Gran % (Auto) Neut % (Auto) Lymph % (Auto) [place] % (Auto) Eos % (Auto) Baso % (Auto) Lymph # (Auto) [place] # (Auto) Eos # (Auto) Baso # (Auto) Abs Immat Gran (auto) Absolute Neuts (auto) Absolute Nucleated RBC Nucleated RBC % (auto) Smear Tech's Comments PT INR APTT VBG pH VBG pCO2 VBG pO2 VBG HCO3 VBG O2 Saturation VBG Base Excess Anion Gap Estim Creat Clear Calc Estimated GFR POC Glucose > 600 H* Random Glucose Lactic Acid Calcium Magnesium Total Bilirubin Direct Bilirubin AST ALT Alkaline Phosphatase Troponin I High Sens Total Protein Albumin Lipase Beta HCG, Quant Urine Color Urine Appearance Urine pH Ur Specific [place] Urine Protein Urine Glucose (UA) Urine Ketones Urine Blood Urine Nitrite Ur Leukocyte Esterase Urine RBC Urine WBC Ur Squamous Epith Cells Urine Bacteria Urine Opiates Screen Not Detected Urine Fentanyl Screen POSITIVE H Ur Barbiturates Screen Not Detected Ur Phencyclidine Scrn Not Detected Ur Amphetamines Screen Not Detected U Benzodiazepines Scrn Not Detected Urine Cocaine Screen POSITIVE H U Marijuana (THC) Screen Not Detected Acetone, Qual COVID-19 (BRENDA) Negative COVID-19 Clin Com See Note 12/19/20 12/19/20 12/19/20 16:17 16:39 16:39 MCV 85.2 MCH 27.3 MCHC 32.0 RDW 15.9 Plt Count 429 H MPV 9.8 Immature Gran % (Auto) 0.7 H Neut % (Auto) 94.1 H Lymph % (Auto) 4.5 L [place] % (Auto) 0.6 L Eos % (Auto) 0.0 Baso % (Auto) 0.1 Lymph # (Auto) 1.0 L [place] # (Auto) 0.1 Eos # (Auto) 0.0 Baso # (Auto) 0.0 Abs Immat Gran (auto) 0.15 H Absolute Neuts (auto) 21.1 H Absolute Nucleated RBC 0.000 Nucleated RBC % (auto) 0.0 Smear Tech's Comments VERIFIED PT 10.6 INR 0.9 APTT 28.5 VBG pH VBG pCO2 VBG pO2 VBG HCO3 VBG O2 Saturation VBG Base Excess Anion Gap Estim Creat Clear Calc Estimated GFR POC Glucose Random Glucose Lactic Acid Calcium Magnesium Total Bilirubin Direct Bilirubin AST ALT Alkaline Phosphatase Troponin I High Sens Total Protein Albumin Lipase Beta HCG, Quant Urine Color STRAW Urine Appearance CLEAR Urine pH 5.5 Ur Specific [place] <= 1.005 Urine Protein NEG Urine Glucose (UA) >=1000 H Urine Ketones >=80 Urine Blood NEG Urine Nitrite NEG Ur Leukocyte Esterase 1+ H Urine RBC 0 Urine WBC 1-4 Ur Squamous Epith Cells 1+ Urine Bacteria 1+ Urine Opiates Screen Urine Fentanyl Screen Ur Barbiturates Screen Ur Phencyclidine Scrn Ur Amphetamines Screen U Benzodiazepines Scrn Urine Cocaine Screen U Marijuana (THC) Screen Acetone, Qual COVID-19 (BRENDA) COVID-19 Clin Com 12/19/20 12/19/20 12/19/20 16:39 16:39 16:39 MCV MCH MCHC RDW Plt Count MPV Immature Gran % (Auto) Neut % (Auto) Lymph % (Auto) [place] % (Auto) Eos % (Auto) Baso % (Auto) Lymph # (Auto) [place] # (Auto) Eos # (Auto) Baso # (Auto) Abs Immat Gran (auto) Absolute Neuts (auto) Absolute Nucleated RBC Nucleated RBC % (auto) Smear Tech's Comments PT INR APTT VBG pH VBG pCO2 VBG pO2 VBG HCO3 VBG O2 Saturation VBG Base Excess Anion Gap 30 H Estim Creat Clear Calc 44.4 Estimated GFR 46 POC Glucose Random Glucose 824 H* Lactic Acid 1.6 Calcium 9.6 Magnesium 1.9 Total Bilirubin 0.5 Direct Bilirubin 0.2 AST 62 H ALT 52 H Alkaline Phosphatase 139 H D Troponin I High Sens < 3.5 Total Protein 7.5 Albumin 3.7 Lipase 23 Beta HCG, Quant < 2 Urine Color Urine Appearance Urine pH Ur Specific [place] Urine Protein Urine Glucose (UA) Urine Ketones Urine Blood Urine Nitrite Ur Leukocyte Esterase Urine RBC Urine WBC Ur Squamous Epith Cells Urine Bacteria Urine Opiates Screen Urine Fentanyl Screen Ur Barbiturates Screen Ur Phencyclidine Scrn Ur Amphetamines Screen U Benzodiazepines Scrn Urine Cocaine Screen U Marijuana (THC) Screen Acetone, Qual Negative COVID-19 (BRENDA) COVID-19 Clin Com 12/19/20 12/19/20 12/19/20 16:51 17:41 18:49 MCV MCH MCHC RDW Plt Count MPV Immature Gran % (Auto) Neut % (Auto) Lymph % (Auto) [place] % (Auto) Eos % (Auto) Baso % (Auto) Lymph # (Auto) [place] # (Auto) Eos # (Auto) Baso # (Auto) Abs Immat Gran (auto) Absolute Neuts (auto) Absolute Nucleated RBC Nucleated RBC % (auto) Smear Tech's Comments PT INR APTT VBG pH 7.40 VBG pCO2 27 VBG pO2 72 VBG HCO3 17 L VBG O2 Saturation 92.0 VBG Base Excess -5.5 Anion Gap Estim Creat Clear Calc Estimated GFR POC Glucose 587 H* 420 H* Random Glucose Lactic Acid Calcium Magnesium Total Bilirubin Direct Bilirubin AST ALT Alkaline Phosphatase Troponin I High Sens Total Protein Albumin Lipase Beta HCG, Quant Urine Color Urine Appearance Urine pH Ur Specific [place] Urine Protein Urine Glucose (UA) Urine Ketones Urine Blood Urine Nitrite Ur Leukocyte Esterase Urine RBC Urine WBC Ur Squamous Epith Cells Urine Bacteria Urine Opiates Screen Urine Fentanyl Screen Ur Barbiturates Screen Ur Phencyclidine Scrn Ur Amphetamines Screen U Benzodiazepines Scrn Urine Cocaine Screen U Marijuana (THC) Screen Acetone, Qual COVID-19 (BRENDA) COVID-19 [employer] Com 12/19/20 12/19/20 12/19/20 18:55 19:02 19:41 MCV MCH MCHC RDW Plt Count MPV Immature Gran % (Auto) Neut % (Auto) Lymph % (Auto) [place] % (Auto) Eos % (Auto) Baso % (Auto) Lymph # (Auto) [place] # (Auto) Eos # (Auto) Baso # (Auto) Abs Immat Gran (auto) Absolute Neuts (auto) Absolute Nucleated RBC Nucleated RBC % (auto) Smear Tech's Comments PT INR APTT VBG pH 7.47 H VBG pCO2 31 VBG pO2 64 VBG HCO3 23 VBG O2 Saturation 90.0 VBG Base Excess 0.5 Anion Gap 19 Estim Creat Clear Calc 67.3 Estimated GFR > 60 POC Glucose 381 H* Random Glucose 435 H* Lactic Acid Calcium 8.5 D Magnesium Total Bilirubin Direct Bilirubin AST ALT Alkaline Phosphatase Troponin I High Sens Total Protein Albumin Lipase Beta HCG, Quant Urine Color Urine Appearance Urine pH Ur Specific [place] Urine Protein Urine Glucose (UA) Urine Ketones Urine Blood Urine Nitrite Ur Leukocyte Esterase Urine RBC Urine WBC Ur Squamous Epith Cells Urine Bacteria Urine Opiates Screen Urine Fentanyl Screen Ur Barbiturates Screen Ur Phencyclidine Scrn Ur Amphetamines Screen U Benzodiazepines Scrn Urine Cocaine Screen U Marijuana (THC) Screen Acetone, Qual COVID-19 (BRENDA) COVID-19 Clin Com 12/19/20 12/19/20 12/20/20 23:18 23:53 07:38 MCV MCH MCHC RDW Plt Count MPV Immature Gran % (Auto) Neut % (Auto) Lymph % (Auto) [place] % (Auto) Eos % (Auto) Baso % (Auto) Lymph # (Auto) [place] # (Auto) Eos # (Auto) Baso # (Auto) Abs Immat Gran (auto) Absolute Neuts (auto) Absolute Nucleated RBC Nucleated RBC % (auto) Smear Tech's Comments PT INR APTT VBG pH VBG pCO2 VBG pO2 VBG HCO3 VBG O2 Saturation VBG Base Excess Anion Gap Estim Creat Clear Calc Estimated GFR POC Glucose 368 H* 287 H 311 H Random Glucose Lactic Acid Calcium Magnesium Total Bilirubin Direct Bilirubin AST ALT Alkaline Phosphatase Troponin I High Sens Total Protein Albumin Lipase Beta HCG, Quant Urine Color Urine Appearance Urine pH Ur Specific [place] Urine Protein Urine Glucose (UA) Urine Ketones Urine Blood Urine Nitrite Ur Leukocyte Esterase Urine RBC Urine WBC Ur Squamous Epith Cells Urine Bacteria Urine Opiates Screen Urine Fentanyl Screen Ur Barbiturates Screen Ur Phencyclidine Scrn Ur Amphetamines Screen U Benzodiazepines Scrn Urine Cocaine Screen U Marijuana (THC) Screen Acetone, Qual COVID-19 (BRENDA) COVID-19 Clin Com Microbiology Microbiology Results: Microbiology 12/19/20 16:28 Urine clean catch - Urine hines top Urine Culture - Preliminary Culture too young to evaluate. 12/19/20 16:39 Blood - Venous Blood Culture - Preliminary Gram positive cocci 12/19/20 16:39 Blood - Venous Blood Culture - Preliminary Prelim: GPC Gram Stain only Quality Stroke Does the patient have a stroke diagnosis?: No VTE Prior VTE?: No VTE Risk Level:: Medical - moderate - high VTE Device Contraindication: N/A - Device Ordered VTE Drug Contraindication: Treatment Not Indicated
[2020-12-20] MEDS: vancomycin HCL 750 MG in 0.9 % Sodium Chloride 250 ML 265 MG IV ×2 (11:49→21:57)
[2020-12-20 12:05] LABS: Glucose, Whole Blood 287 mg/dL (60-115)
--- NOTE | 2020-12-20 14:33 | W.PM.IDCN ---
History of Present Illness Data of Consult Service Date: 12/20/20 Requesting physician: Krysta Dolan Primary Care Provider: Unknown Physician HPI Reason for consult: bacteremia She presents with weakness,confusion,found to have blood sugar over 600. She describes no fever at home She has blood cultures gram positive cocci x2. She is asking for soda. Review of Systems Review of Systems: Yes all other systems are reviewed and are negative PMFSH Past Medical History Medical History Anxiety Cocaine abuse Diabetes mellitus type 1 Endocarditis Heroin abuse Staphylococcus aureus bacteremia Social History Social History Household Members: Unknown / Unable to assess Housing: Homeless Do you presently have visiting nurse or other home services: No Unable to assess alcohol history related to: Unable to respond Alcohol intake: current Alcohol intake frequency: 3 or more drinks per day Alcohol type: beer, wine and hard liquor Patient Tobacco Use Status: Current everyday Tobacco user Tobacco use type: Cigarette Cigarette Packs Per Day: 1 Cigarettes Per Day: 20.0 Smoked in Last 30 Days: Yes Use of substances other than those prescribed or required for medical reasons: Unable to respond Substance Use Type: Heroin, IV Drugs, Marijuana and Opiates Substance Use Frequency: Daily Last Used Substance: Days (ago) Any prior treatment program specific to substance use: Yes Advance Directives: No Advance Directives Information Provided: Yes Do you have thoughts of harming others: None Do you have a plan to hurt others: No Plan Recently lost weight without trying: Unsure Patient : No service: No Current occupational status: unemployed Meds Allergies Allergy/AdvReac Type Severity Reaction Status Date / Time No Known Allergies Allergy Verified 12/20/20 07:52 Active Medications: Current Medications Generic Name Dose Route Start Last Admin Trade Name Freq PRN Reason Stop Dose Admin Acetaminophen 650 mg 12/19/20 22:36 Acetaminophen 325 Mg Tablet PO Q6H PRN Pain, Mild (Pain Scale 1-3) Clonidine HCl 0.1 mg 12/19/20 22:44 Clonidine Hcl 0.1 Mg Tablet PO BID PRN anxiety/restlessness Protocol Dextrose 25 gm 12/19/20 22:36 Dextrose 50 % 25 Gm/50 Ml Vial IVPUSH Q15M PRN per Hypoglycemia Standing Ord. Protocol Glucose 15 gm 12/19/20 22:36 Glucose Gel 15 Gm Gel..Gram. PO Q15M PRN per Hypoglycemia Standing Ord. Protocol Sodium Chloride 1,000 mls @ 100 mls/hr 12/19/20 22:45 12/20/20 07:29 Ns IVCONT 100 mls/hr .Q10H [facility] Administration Vancomycin HCl 750 mg/ Sodium 265 mls @ 265 mls/hr 12/19/20 23:00 12/20/20 12:59 Chloride IV Infused Q12H [facility] Infusion Insulin Glargine 30 unit 12/20/20 21:00 Insulin Glargine,Hum.Rec.Anlog 100 Unit/Ml 10 Ml Vial SUBCUT BEDTIME [facility] Insulin Human Lispro 0 unit 12/20/20 07:30 12/20/20 12:19 Insulin Lispro 100 Unit/Ml 3 Ml Vial SUBCUT 6 unit QIDACHS [facility] Administration Protocol Melatonin 6 mg 12/19/20 22:36 Melatonin 3 Mg Tablet PO BEDTIME PRN Insomnia Ondansetron HCl 4 mg 12/20/20 02:20 12/20/20 05:30 Ondansetron Hcl 4 Mg/2 Ml Vial IVPUSH 4 mg Q8H PRN Administration Nausea and Vomiting Oxycodone HCl 5 mg 12/19/20 22:36 Oxycodone Hcl Immed Release 5 Mg Tablet PO Q6H PRN Pain, Severe (Pain Scale 7-10) Pantoprazole Sodium 40 mg 12/20/20 06:30 12/20/20 05:31 Pantoprazole Sodium 40 Mg/10 Ml Vial IVPUSH 40 mg BID@0630,1630 [facility] Administration Pharmacy Consult 1 each 12/19/20 15:50 Consult Rx Perform Med Rec MISCELLANE ONCE PRN Consult order Pharmacy Consult 1 each 12/19/20 22:34 Consult Rx Vancomycin Dosing MISCELLANE DAILY PRN Consult order Sodium Chloride 3 ml 12/20/20 00:00 12/20/20 07:37 0.9 % Sodium Chloride Flush 3 Ml Syringe IVFLUSH Not Given QSHIFT [facility] Home Medications Medication Instructions Recorded Confirmed Last Taken Type insulin glargine 100 unit/mL (3 30 unit SUBCUT BEDTIME 09/24/20 12/19/20 Unknown History mL) subcutaneous pen (Lantus Solostar U-100 Insulin) insulin lispro 100 unit/mL See Protocol SUBCUT USEASDIRECTD 09/24/20 12/19/20 Unknown History subcutaneous solution (Humalog U-100 Insulin) quetiapine 100 mg tablet 0.5 - 1 tab PO BEDTIME PRN 12/19/20 12/19/20 Unknown History quetiapine 50 mg tablet 0.5 - 1 tab PO BID PRN 12/19/20 12/19/20 Unknown History Physical Exam Vital Signs: Vital Signs: Last Vital Signs Temp 96.8 F 12/20/20 11:54 Pulse 101 H 12/20/20 11:54 Resp 18 12/20/20 11:54 BP 145/79 H 12/20/20 11:54 Pulse Ox 100 12/20/20 11:54 Body Mass Index 19.5 patient refuses exam right arm near IV site and pillow green/brown substance ?stool Results Labs CBC & Chem 7: 12/19/20 16:39 12/19/20 18:55 Labs: Short CBC 12/19/20 Range/Units 16:39 WBC 22.4 H (4.8-10.8) X10*3/uL Hgb 11.8 L D (12.0-16.0) g/dl Hct 36.9 L D (37-47) % Plt Count 429 H (160-400) X10*3/uL BMP 12/19/20 12/19/20 16:39 18:55 Sodium 131 L 138 Potassium 4.9 4.2 Chloride 91 L 103 Carbon Dioxide 15 L 20 L BUN 16 12 Creatinine 1.41 H 0.93 Calcium 9.6 8.5 D Liver Function 12/19/20 Range/Units 16:39 Total Bilirubin 0.5 (0.0-1.0) mg/dL Direct Bilirubin 0.2 (0.0-0.5) mg/dL AST 62 H (5-31) U/L ALT 52 H (0-31) U/L Alkaline Phosphatase 139 H D (39-117) U/L Albumin 3.7 (3.5-5.0) g/dL Urine 12/19/20 Range/Units 16:17 Urine Color STRAW Urine Appearance CLEAR Urine pH 5.5 (5.0-8.0) Ur Specific [place] <= 1.005 (1.005-1.025) Urine Protein NEG (NEG-TRACE) MG/DL Urine Glucose (UA) >=1000 H (NEG) MG/DL Microbiology Microbiology Results: Microbiology 12/19/20 16:39 Blood - Venous Blood Culture - Preliminary Prelim: GPC Gram Stain only 12/19/20 16:28 Urine clean catch - Urine hines top Urine Culture - Preliminary Culture too young to evaluate. 12/19/20 16:39 Blood - Venous Blood Culture - Preliminary Gram positive cocci Assessment and Plan (1) Staphylococcus aureus bacteremia: Status: Acute She has possible MRSA blood possible IVDU source She declines exam (2) Polysubstance abuse: Status: Acute (3) Acute renal failure: Status: Acute Continue Vancomycin Will likely need investments manager IV antibiotics Check echo
--- NOTE | 2020-12-20 15:42 | MHC.RECOVSUP ---
Recovery Support note: Patient is a 25 year old Dutch speaking female who presented to [facility] ED due to fever, chills and high blood sugar. Patient was medically admitted. This show card writer met with patient in to discuss her substance use and recovery supports. Patient reported that she felt awful and that she was wet. This show card writer informed RN and patient was cleaned and linens were replaced. Upon return, patient was resting comfortably in bed. Patient opened her eyes but did not respond to this show card writer's questions. Informed patient that she would be able to get connected with Suboxone or methadone services if she is interested and that this show card writer will return tomorrow to discuss this further. Patient did not respond. Discussed case with patient's RN and requested that she contact this show card writer in the event that patient requests to leave. This show card writer will follow up with patient tomorrow to further discuss her recovery.
[2020-12-20 16:17] LABS: Glucose, Whole Blood 212 mg/dL (60-115)
[2020-12-20 20:10] LABS: Glucose, Whole Blood 128 mg/dL (60-115)
[2020-12-20] MEDS: Insulin Glargine,Hum.rec.anlog 100 UNIT/ML 10 ML VIAL 30 UNIT SUBCUT (21:58)
[2020-12-21 03:33] VITALS: BP 158/92; PULSE 62; RESP 18; TEMP 36.4; O2SAT 100
[2020-12-21] MEDS: 0.9 % Sodium Chloride 1,000 ML 100 ML IVCONT (04:24)
[2020-12-21] MEDS: Pantoprazole Sodium 40 MG/10 ML VIAL IVPUSH (05:48)
[2020-12-21 07:30] LABS: Glucose, Whole Blood 65 mg/dL (60-115)
[2020-12-21 07:58] LABS: Glucose, Whole Blood 81 mg/dL (60-115)
[2020-12-21 08:00] VITALS: BP 115/78; PULSE 91; RESP 18; TEMP 36.7; O2SAT 100
--- NOTE | 2020-12-21 09:49 | MHC.CM.PN ---
BACK END ENGINEER MET W/CM AND REPORTED PT IS LEAVING AMA, PT GIVEN 2 BUS PASSES FOR TRANPSORT.
--- NOTE | 2020-12-21 09:50 | MHC.RECOVSUP ---
Recovery Support note: Nursing staff contacted this poem writer to report that patient is requesting to leave AMA. This poem writer met with patient to discuss this decision. Patient does not offer any reason as to why she wants to leave aside from not wanting to be here. This poem writer asked if there was anything we could do to make her more comfortable or to help her remain in treatment. Patient reports no requests and is adamant on leaving. Discussed the severity of the infection and the harm done when blood sugar is not managed and patient acknowledged. Encouraged patient to take the medications she is discharged with as prescribed and to return to the hospital if she is not feeling well or if she wants to get into treatment for her infection or substance use disorder. Patient acknowledge. Patient requested a pair of shoes and bus passes. This poem writer provided patient with these materials. Patient reports no additional needs and continues to request to leave. Discussed case with patient's RN, JAD and Xiomara Louise NP.
--- NOTE | 2020-12-21 10:08 | P.PNIM_ITS ---
Progress Note: A&P (1) Bacteremia: Status: Acute Assessment and Plan: 25-year-old female with a past medical history of type 1 diabetes, polysubstance abuse, heroin abuse/cocaine abuse, history of Staph aureus bacteremia, endocarditis, anxiety, recent admission to the hospital for DKA presented to the hospital with a chief complaint of hyperglycemia. Bacteremia. GPC 2/2 Hx of IVDA Continue vancomycin follow cx for species ECHO ID following Diabetes/hyperglycemia. Patient noncompliant with her home regimen.? Patient would benefit Diabetes Education.? Nutrition consult. Counseled on the importance of medication adherence Will continue the patient on Lantus 30 units at bedtime and insulin sliding scale. Patient currently not in DKA. IV fluids. History of polysubstance abuse/heroin abuse Addiction Medicine consult.? COWS protocol.? Clonidine p.r.n, oxycodone DVT prophylaxis SCD Boots Code status Full code? Subjective Subjective Date of Service: 12/21/20 Review of Systems Follow bacteremia Wanted to leave AMA, for now as changed her mind Physical Exam Vital Signs: Vital Signs: Last Vital Signs Temp 98.0 F 12/21/20 08:00 Pulse 91 12/21/20 08:00 Resp 18 12/21/20 08:00 BP 115/78 12/21/20 08:00 Pulse Ox 100 12/21/20 08:00 Body Mass Index 19.5 Appearing in no acute distress, curled up in the blankets lung sounds are clear to auscultation heart regular rate rhythm, clear S1, S2 positive bowel sounds, abdomen is soft, nontender neuro patient is alert x3, no focal deficits multiple scabbed areas to face and legs Objective Data Current Medications Generic Name Dose Route Start Last Admin Trade Name Freq PRN Reason Stop Dose Admin Acetaminophen 650 mg 12/19/20 22:36 Acetaminophen 325 Mg Tablet PO Q6H PRN Pain, Mild (Pain Scale 1-3) Clonidine HCl 0.1 mg 12/19/20 22:44 Clonidine Hcl 0.1 Mg Tablet PO BID PRN anxiety/restlessness Protocol Dextrose 25 gm 12/19/20 22:36 Dextrose 50 % 25 Gm/50 Ml Vial IVPUSH Q15M PRN per Hypoglycemia Standing Ord. Protocol Glucose 15 gm 12/19/20 22:36 Glucose Gel 15 Gm Gel..Gram. PO Q15M PRN per Hypoglycemia Standing Ord. Protocol Sodium Chloride 1,000 mls @ 100 mls/hr 12/19/20 22:45 12/21/20 04:24 Ns IVCONT 100 mls/hr .Q10H [facility] Administration Vancomycin HCl 750 mg/ Sodium 265 mls @ 265 mls/hr 12/19/20 23:00 12/21/20 0 0:27 Chloride IV Infused Q12H [facility] Infusion Insulin Glargine 30 unit 12/20/20 21:00 12/20/20 21:58 Insulin Glargine,Hum.Rec.Anlog 100 Unit/Ml 10 Ml Vial SUBCUT 30 unit BEDTIME [facility] Administration Insulin Human Lispro 0 unit 12/20/20 07:30 12/21/20 07:51 Insulin Lispro 100 Unit/Ml 3 Ml Vial SUBCUT [facility] Protocol Melatonin 6 mg 12/19/20 22:36 Melatonin 3 Mg Tablet PO BEDTIME PRN Insomnia Morphine Sulfate 2 mg 12/21/20 10:08 Morphine Sulfate 2 Mg/Ml Cartridge IVPUSH 12/21/20 10:09 ONCE ONE Protocol Ondansetron HCl 4 mg 12/20/20 02:20 12/20/20 05:30 Ondansetron Hcl 4 Mg/2 Ml Vial IVPUSH 4 mg Q8H PRN Administration Nausea and Vomiting Oxycodone HCl 5 mg 12/19/20 22:36 Oxycodone Hcl Immed Release 5 Mg Tablet PO Q6H PRN Pain, Severe (Pain Scale 7-10) Pantoprazole Sodium 40 mg 12/20/20 06:30 12/21/20 05:48 Pantoprazole Sodium 40 Mg/10 Ml Vial IVPUSH 40 mg BID@0630,1630 [facility] Administration Pharmacy Consult 1 each 12/19/20 15:50 Consult Rx Perform Med Rec MISCELLANE ONCE PRN Consult order Pharmacy Consult 1 each 12/19/20 22:34 Consult Rx Vancomycin Dosing MISCELLANE DAILY PRN Consult order Sodium Chloride 3 ml 12/20/20 00:00 12/21/20 07:52 0.9 % Sodium Chloride Flush 3 Ml Syringe IVFLUSH Not Given QSHIFT [facility] Labs CBC & Chem 7: 12/19/20 16:39 12/19/20 18:55 Labs: Laboratory Results - last 24 hr 12/20/20 12/20/20 12/20/20 11:53 16:13 20:00 POC Glucose 287 H 212 H 128 H 12/21/20 12/21/20 07:20 07:55 POC Glucose 65 81 Microbiology Microbiology Results: Microbiology 12/19/20 16:39 Blood - Venous Blood Culture - Preliminary Gram positive cocci 12/19/20 16:39 Blood - Venous Blood Culture - Preliminary Gram positive cocci 12/19/20 16:28 Urine clean catch - Urine hines top Urine Culture - Preliminary Culture too young to evaluate. Quality Stroke Does the patient have a stroke diagnosis?: No VTE Prior VTE?: No VTE Risk Level:: Medical - moderate - high VTE Device Contraindication: N/A - Device Ordered VTE Drug Contraindication: Treatment Not Indicated
[2020-12-21] MEDS: oxyCODONE HCl Immed Release 5 MG TABLET PO (10:50)
--- NOTE | 2020-12-21 11:18 | PM.DS ---
DS: Providers Provider Date of Service: 12/21/20 Date of admission: 12/19/20 22:36 Primary care physician: Unknown Physician Consults: 12/19/20 22:34 Consult to Infectious Diseases Routine Consulting Provider: Gricelda Rivero Reason for consultation: leukocytosis; IVDA hx 12/19/20 22:36 Addiction Medicine Routine Consulting Provider: Xiomara Louise Reason for consultation: heroin abuse Attending physician on discharge: Magno Johns Discharging clinician: Kiera Winters DS: Diagnosis Discharge Diagnosis (1) Bacteremia: Status: Acute DS: Summary Hospital Course Hospital Course: HP as per admitting provider 25-year-old female with a past medical history of type 1 diabetes, polysubstance abuse, heroin abuse/cocaine abuse, history of Staph aureus bacteremia, endocarditis, anxiety, recent admission to the hospital for DKA presented to the hospital with a chief complaint of hyperglycemia. History limited as pt denied to talk; Patient has not been complaint with her home insulin. Review of all other systems is negative except mentioned above ER course. Per ER team patient noted to have significant elevated WBC; blood glucose noted to be in 500s; given subcutaneous insulin, IV fluids, IV ceftriaxone.? Admitted to the hospital for further management . Bacteremia. Patient known to the [facility]. Likely secondary to IVDA. Initial blood culture showed Gram-positive cocci, she does have a history of MRSA.Blood culture species was pending, patient was on vancomycin however she decided to leave AMA today. Prior to that She was offered Morphine and increase dose in oxycodone and she agreed to stay and continue treatment. Unfortunately she got dressed and left her room. When speaking to the patient she demonstrated understanding of her risks of leaving including and disability. All efforts were made to address her drug withdrawal symptoms. Also the plan was to send antibiotics to her pharmacy so she can continue taking them however she stated she does not have a pharmacy and she will not corn picker or take any medication. She still had an echocardiogram pending to rule out endocarditis, hopefully she will return to a hospital facility if she develops symptoms of infection or chest pain. Time Spent with Patient Time attestation: Total time spent providing and/or coordinating discharge services: Discharge coordination time: Less than 30 minutes Quality: Stroke Does the patient have a stroke diagnosis?: No Physical Exam Vital Signs: Vital Signs: Last Vital Signs Temp 98.0 F 12/21/20 08:00 Pulse 91 12/21/20 08:00 Resp 18 12/21/20 08:00 BP 115/78 12/21/20 08:00 Pulse Ox 100 12/21/20 08:00 Body Mass Index 19.5 Unable to perform as she left against medical advice DS: Data Data Completed and Pending Completed studies during hospitalization [Text1]: Procedures Detoxification Services for Substance Abuse Treatment (09/24/20) Drainage of Neck Skin, External Approach (08/17/20) Insertion of Infusion Device into Superior Vena Cava, Percutaneous Approach (08/06/20) Labs on day of discharge: Laboratory Results - last 24 hr 12/20/20 12/20/20 12/20/20 11:53 16:13 20:00 POC Glucose 287 H 212 H 128 H 12/21/20 12/21/20 07:20 07:55 POC Glucose 65 81 Preliminary micro results at discharge 12/19/20 16:39 Blood Culture - Preliminary Blood - Venous Gram positive cocci 12/19/20 16:39 Blood Culture - Preliminary Blood - Venous Gram positive cocci Discharge Plan Discharge Anticipated Discharge Date/Time: 12/21/20 11:25 Patient Disposition: Left Against Medical Advice Discharge Diagnosis: Bacteremia Referrals: Physician,Unknown [Primary Care Provider] - 1 Week Discharge Medications: Continued insulin lispro [Humalog U-100 Insulin] 100 unit/mL Solution See Protocol sliding scale dose SUBCUT USEASDIRECTD RF: 0 Lantus Solostar U-100 Insulin 100 unit/mL (3 mL) Insulin Pen 30 unit SUBCUT BEDTIME RF: 0 quetiapine 100 mg tablet 0.5 - 1 tab PO BEDTIME PRN (Reason: Agitation) RF: 0 quetiapine 50 mg tablet 0.5 - 1 tab PO BID PRN (Reason: Agitation) RF: 0 Discharge Orders: Discharge Order (Routine); Ordered 12/21/20 Ordered By: Kiera Winters Care Plan Goals: Cessation of IV drug use Health Concerns: bacteremia Plan of Treatment: Unfortunately patient left against medical advice and did not want to continue medical care Initial blood cultures were Gram-positive cocci with history of MRSA and IV drug use Declined prescription for antibiotics Assessment: See discharge summary
--- NOTE | 2020-12-21 11:18 | PC.NURSE ---
Patient stated that she wants to leave AMA, no particular reason given. Patient alert and oriented, aware of risks of leaving, IV out, aware, AMA signed. Nursing packaging supervisor aware.
[2020-12-23 09:36] LABS: Glucose, Whole Blood > 600 mg/dL (60-115)
== END 2020-12-21 11:10 | disposition left against medical advice (07) | DRG 420 ==
LOC: HO.ED 21:43 → HO.S3 23:09
PROVIDERS: Emergency Medicine; Admitting Provider Hospitalist; Emergency Provider Internal Medicine; Visit Provider Nurse Practitioner Acute Care
DX: E10.65 Type 1 diabetes mellitus with hyperglycemia (principal); R78.81 Bacteremia; D72.829 Elevated white blood cell count, unspecified; F11.10 Opioid abuse, uncomplicated; F17.210 Nicotine dependence, cigarettes, uncomplicated; Z59.0 Homelessness; Z71.6 Tobacco abuse counseling; Z91.14 Patient's other noncompliance with medication regimen; Z20.822 Contact with and (suspected) exposure to COVID-19; Z79.899 Other long term (current) drug therapy
CPT/HCPCS: 36415; 71045; 80048; 80076; 80307; 81001; 82009; 82803; 82947; 83605; 83690; 83735; 84484; 84702; 85025; 85610; 85730; 87040; 87077; 87086; 87186; 87205; 87635; 93005; 96361; 96374; 96375; 99285; J0696; J2405; J3370

== ENCOUNTER 2021-01-05 23:15 | Inpatient (IN) | payer MEDICAID, SELFPAY ==
--- NOTE | ~2021-01-05 | CT_ITS ---
EXAMINATION: CT HEAD WITHOUT CONTRAST CLINICAL INFORMATION: Tachycardia. Brain pathology. COMPARISON: CT head August 2020 TECHNIQUE: Contiguous axial imaging was performed from the skull base to vertex without intravenous administration of contrast. This CT examination was performed using dose optimization techniques as appropriate, variously including the following: *Automated exposure control *Adjustment of mA and/or kV according to patient size (this includes techniques or standardized protocols for targeted exams where dose is matched to indication/reason for exam; i.e. extremities or head) *Use of iterative reconstruction technique DLP: 733 mGy-cm FINDINGS: There is no evidence of acute intracranial hemorrhage or territorial infarction. No abnormal mass effect or midline shift is seen. [place] to white matter differentiation is well preserved. No extra-axial fluid collections are identified. The ventricles are normal in size. There is no abnormal attenuation within the brain parenchyma. The osseous structures and soft tissues are normal. The mastoid air cells and visualized portions of the paranasal sinuses are well aerated. CT/CT head/brain wo con IMPRESSION: No acute intracranial pathology.
--- NOTE | ~2021-01-05 | XR_ITS ---
EXAMINATION: XR CHEST CLINICAL INFORMATION: Triple-lumen catheter and ET tube placement COMPARISON: 12/19/2020 TECHNIQUE: Frontal view of the chest was obtained. FINDINGS: Endotracheal tube tip lies approximately 3.5 cm above the miguel ángel. Enteric tube courses into the stomach. Left IJ central line tip lies in the region of the proximal right atrium. Lung volumes are symmetric. No focal consolidation is seen. No evidence of pneumothorax, pleural effusion, or pulmonary edema. The cardiomediastinal contour is unremarkable. No acute osseous findings are seen. XR/XR chest 1V IMPRESSION: Endotracheal tube tip 3.5 cm above the miguel ángel. Left IJ central line tip in the region of the proximal right atrium.
--- NOTE | 2021-01-05 23:21 | ECG_ITS ---
Test Reason : DKA Blood Pressure : / mmHG Vent. Rate : 131 BPM Atrial Rate : 131 BPM P-R Int : 130 ms QRS Dur : 064 ms QT Int : 296 ms P-R-T Axes : 074 081 069 degrees QTc Int : 437 ms Sinus tachycardia Otherwise normal ECG When compared with ECG of 19-DEC-2020 16:01, Vent. rate has increased BY 47 BPM T wave amplitude has decreased in Lateral leads Referred By: Marcello Vitale Electronically Signed By:RUPESH CISNEROS
--- NOTE | 2021-01-05 23:26 | ED.GENADULT ---
HPI - General Adult General Chief complaint: General Medical Stated complaint: MOANING IN PAIN HIGH POC Time Seen by Provider: 01/05/21 23:19 Source: EMS Mode of arrival: EMS Limitations: altered mental status History of Present Illness HPI narrative: Patient is 25 years old type 1 diabetic noncompliant with history of multiple hospitalizations for DKA, history of polysubstance abuse IV cocaine and heroin was found on the side of the road morning passerby called EMS patient is semi-responsive lethargic morning in the ER opening her eyes to painful stimuli POC read high by EMS and in the ER no signs of trauma Related Data Home Medications Medication Instructions Recorded Confirmed insulin glargine 100 unit/mL (3 30 unit SUBCUT BEDTIME 09/24/20 12/19/20 mL) subcutaneous pen (Lantus Solostar U-100 Insulin) insulin lispro 100 unit/mL See Protocol SUBCUT USEASDIRECTD 09/24/20 12/19/20 subcutaneous solution (Humalog U-100 Insulin) quetiapine 100 mg tablet 0.5 - 1 tab PO BEDTIME PRN 12/19/20 12/19/20 quetiapine 50 mg tablet 0.5 - 1 tab PO BID PRN 12/19/20 12/19/20 Allergies Allergy/AdvReac Type Severity Reaction Status Date / Time No Known Allergies Allergy Verified 12/20/20 07:52 Review of Systems Review of Systems: Yes Unobtainable due to mental status PMFSH Past Medical History Medical History Anxiety Cocaine abuse Diabetes mellitus type 1 Endocarditis Heroin abuse Staphylococcus aureus bacteremia Social History Social History Household Members: Unknown / Unable to assess Housing: Homeless Do you presently have visiting nurse or other home services: No Unable to assess alcohol history related to: Unable to respond Alcohol intake: current Alcohol intake frequency: 3 or more drinks per day Alcohol type: beer, wine and hard liquor Patient Tobacco Use Status: Current everyday Tobacco user Tobacco use type: Cigarette Cigarette Packs Per Day: 1 Cigarettes Per Day: 20.0 Substance Use Type: Heroin, IV Drugs, Marijuana and Opiates Advance Directives: No Advance Directives Information Provided: No service: No Current occupational status: unemployed Physical Exam Vital Signs: Vital Signs: Last Vital Signs Temp 95.2 F L 01/06/21 05:00 Pulse 116 H 01/06/21 05:00 Resp 18 01/06/21 05:00 BP 128/80 01/06/21 05:00 Pulse Ox 100 01/06/21 05:00 Body Mass Index 22.8 Const: General: ill appearing, intoxicated appearing, patient obtunded and poor hygiene Nutritional Appearance: cachectic Orientation/consciousness: patient obtunded Limitations: altered mental status HENMT: Head: Yes normocephalic and Yes atraumatic Eyes: General: appearance normal, both eyes and all related structures Neck: Neck: Yes no lymphadenopathy and Yes no meningeal signs Chest: Chest palpation & inspection: normal inspection of the chest and normal palpation of entire chest wall Resp: Effort & Inspection: normal respiratory effort Auscultation: clear to auscultation bilaterally Cardio: Jugular venous distension: no JVD Palpation: normal PMI Rate: tachycardic Rhythm: regular rhythm Heart sounds: S1 normal heart sound present and S2 normal heart sound present Peripheral pulses: Peripheral pulses 2+ throughout GI: Inspection: Yes normal to inspection Palpation (GI): Soft to palpation and nontender Auscultation: normal bowel sounds : General: Yes no CVA tenderness Back/Spine/Pelvis: Back: no CVA tenderness Thoracic/Lumbar Spine: No thoracic spinal tenderness and No lumbar spinal tenderness Skin: Other: Multiple skin lesions/abrasion MRSA?? Neuro: General: moves all extremities, no meningeal signs and patient obtunded Medical Decision Making MDM Narrative Medical decision making narrative: Patient with DKA with substance abuse severely ketotic with anion gap of 46 pH 7.08. Patient was started on IV fluids very agitated refusing any procedures unable to put central line in this time peripheral line was placed using ultrasound on left forearm started on insulin drip after bolus of 10 units will admit to ICU case discussed with Dr. christiansen accepted the patient Lab Data Lab results reviewed: Yes I reviewed the patient's lab results. Result diagrams: 01/06/21 03:54 01/06/21 03:54 Labs: Lab Results 01/05/21 01/05/21 01/05/21 Range/Units 23:48 23:48 23:48 WBC 21.8 H (4.8-10.8) X10*3/uL RBC 4.33 (4.20-5.50) X10*6/uL Hgb 11.5 L (12.0-16.0) g/dl Hct 43.5 (37-47) % MCV 100.5 H (80-98) fL MCH 26.6 L (27.0-33.0) pg MCHC 26.4 L (31.0-35.0) g/dl RDW 18.5 H (11.0-16.0) % Plt Count 533 H (160-400) X10*3/uL MPV 10.1 (9.4-12.3) fL Immature Gran % (Auto) 0.6 H (0.0-0.4) % Neut % (Auto) 90.8 H (45-73) % Lymph % (Auto) 5.5 L (20-40) % [place] % (Auto) 2.8 (2-11) % Eos % (Auto) 0.0 (0-4) % Baso % (Auto) 0.3 (0-2) % Lymph # (Auto) 1.2 (1.2-4.9) X10*3/uL [place] # (Auto) 0.6 (0.1-1.2) X10*3/uL Eos # (Auto) 0.0 (0.0-0.4) X10*3/uL Baso # (Auto) 0.1 (0.0-0.2) X10*3/uL Abs Immat Gran (auto) 0.14 H (0.00-0.03) X10*3/uL Absolute Neuts (auto) 19.8 H (2.0-8.3) X10*3/uL Absolute Nucleated RBC 0.000 (0.0-0.012) X10*3/uL Nucleated RBC % (auto) 0.0 (0.0-0.2) /100WBC Smear Tech's Comments VERIFIED VBG pH (7.32-7.43) VBG pCO2 mmHg VBG pO2 mmHg VBG HCO3 (22-26) mmol/L VBG O2 Saturation % VBG Base Excess mmol/L Sodium 135 (135-145) mmol/L Potassium 5.1 D (3.3-5.1) mmol/L Chloride 89 L (96-108) mmol/L Carbon Dioxide 5 L* D (22-29) mmol/L Anion Gap 46 H (12-20) BUN 36 H D (9-16) mg/dL Creatinine 2.83 H (0.5-1.4) mg/dL Estim Creat Clear Calc 23.3 Estimated GFR 21 Random Glucose 1753 H* D (60-115) mg/dL Lactic Acid 4.7 H* (0.5-2.0) mmol/L Calcium 10.0 D (8.4-10.2) mg/dL Magnesium 3.3 H (1.6-2.6) mg/dL Total Bilirubin 0.5 (0.0-1.0) mg/dL Direct Bilirubin 0.3 (0.0-0.5) mg/dL AST 11 D (5-31) U/L ALT 23 (0-31) U/L Alkaline Phosphatase 175 H D (39-117) U/L Total Protein 7.2 (6.5-8.0) g/dL Albumin 4.1 (3.5-5.0) g/dL Lipase 10 (8-78) U/L Acetone, Qual Small H (Negative) COVID-19 (BRENDA) (Negative) COVID-19 Clin Com 01/05/21 01/05/21 Range/Units 23:54 23:55 WBC (4.8-10.8) X10*3/uL RBC (4.20-5.50) X10*6/uL Hgb (12.0-16.0) g/dl Hct (37-47) % MCV (80-98) fL MCH (27.0-33.0) pg MCHC (31.0-35.0) g/dl RDW (11.0-16.0) % Plt Count (160-400) X10*3/uL MPV (9.4-12.3) fL Immature Gran % (Auto) (0.0-0.4) % Neut % (Auto) (45-73) % Lymph % (Auto) (20-40) % [place] % (Auto) (2-11) % Eos % (Auto) (0-4) % Baso % (Auto) (0-2) % Lymph # (Auto) (1.2-4.9) X10*3/uL [place] # (Auto) (0.1-1.2) X10*3/uL Eos # (Auto) (0.0-0.4) X10*3/uL Baso # (Auto) (0.0-0.2) X10*3/uL Abs Immat Gran (auto) (0.00-0.03) X10*3/uL Absolute Neuts (auto) (2.0-8.3) X10*3/uL Absolute Nucleated RBC (0.0-0.012) X10*3/uL Nucleated RBC % (auto) (0.0-0.2) /100WBC Smear Tech's Comments VBG pH 7.08 L* (7.32-7.43) VBG pCO2 18 mmHg VBG pO2 63 mmHg VBG HCO3 5 L (22-26) mmol/L VBG O2 Saturation 75.0 % VBG Base Excess -22.2 mmol/L Sodium (135-145) mmol/L Potassium (3.3-5.1) mmol/L Chloride (96-108) mmol/L Carbon Dioxide (22-29) mmol/L Anion Gap (12-20) BUN (9-16) mg/dL Creatinine (0.5-1.4) mg/dL Estim Creat Clear Calc Estimated GFR Random Glucose (60-115) mg/dL Lactic Acid (0.5-2.0) mmol/L Calcium (8.4-10.2) mg/dL Magnesium (1.6-2.6) mg/dL Total Bilirubin (0.0-1.0) mg/dL Direct Bilirubin (0.0-0.5) mg/dL AST (5-31) U/L ALT (0-31) U/L Alkaline Phosphatase (39-117) U/L Total Protein (6.5-8.0) g/dL Albumin (3.5-5.0) g/dL Lipase (8-78) U/L Acetone, Qual (Negative) COVID-19 (BRENDA) Negative (Negative) COVID-19 Clin Com See Note Critical Care Time Critical Care Time Critical Care Time: Yes Total Critical Care Time: 50 Attestation: I spent 50 minutes of critical care, with interventions, assessments, speaking to patient, consultants. Discharge Plan Discharge Clinical Impression: Substance abuse Diabetic ketoacidosis associated with type 1 diabetes mellitus Qualifiers: Diabetes mellitus complication detail: without coma Qualified Code(s): E10.10 - Type 1 diabetes mellitus with ketoacidosis without coma Patient Disposition: Admitted As Inpatient Interventions: Admission Worksheet (ED) Last Done: 01/06/21 01:52 Discharge Date/Time: 01/06/21 01:53
[2021-01-05] MEDS: Insulin Lispro 100 UNIT/ML 3 ML VIAL 20 UNIT SUBCUT (23:30)
[2021-01-05 23:58] LABS: Basophils Absolute Auto 0.1 X10*3/uL (0.0-0.2); Basophils Percent Auto 0.3 % (0-2); Hematocrit 43.5 % (37-47); Hemoglobin 11.5 g/dl (12.0-16.0); Imm Gran Abs Auto 0.14 X10*3/uL (0.00-0.03); Imm Gran Pct Auto 0.6 % (0.0-0.4); Lymphocytes Absolute Auto 1.2 X10*3/uL (1.2-4.9); Lymphocytes Percent Auto 5.5 % (20-40); MANUAL DIFF FLAG SCAN; Mean Corpuscular HGB Conc 26.4 g/dl (31.0-35.0); Mean Corpuscular Hemoglobin 26.6 pg (27.0-33.0); Mean Corpuscular Volume 100.5 fL (80-98); Mean Platelet Volume 10.1 fL (9.4-12.3); Monocytes Absolute Auto 0.6 X10*3/uL (0.1-1.2); Monocytes Percent Auto 2.8 % (2-11); Neutrophils Absolute Auto 19.8 X10*3/uL (2.0-8.3); Neutrophils Percent Auto 90.8 % (45-73); Platelet Count 533 X10*3/uL (160-400); Red Blood Count 4.33 X10*6/uL (4.20-5.50); Red Cell Distribution Width 18.5 % (11.0-16.0); SCAN SMEAR FLAG 1; White Blood Count 21.8 X10*3/uL (4.8-10.8)
[2021-01-06] VITALS (34 sets, daily range): BP systolic 000–160; BP diastolic 00–99; PULSE 87–141; RESP 15–32; TEMP -17.7–37.9; O2SAT 93–100; BMI 22.8; BMI 18.6
[2021-01-06] MEDS: LORazepam 2 MG/ML VIAL 1 MG IVPUSH (00:06)
[2021-01-06 00:07] LABS: VBG Base Excess -22.2 mmol/L; VBG HCO3 5 mmol/L (22-26); VBG pCO2 18 mmHg; VBG pH 7.08 (7.32-7.43); VBG pO2 63 mmHg
[2021-01-06 00:07] LABS: Venous Blood Gas Refer to POC result
[2021-01-06 00:11] LABS: Lactic Acid 4.7 mmol/L (0.5-2.0)
[2021-01-06 00:12] LABS: Acetone, serum QL Small (Negative)
[2021-01-06 00:17] LABS: Glucose Random 1753 mg/dL (60-115)
[2021-01-06] MEDS: 0.9 % Sodium Chloride 1,000 ML 999 ML IVCONT ×3 (00:17→00:18)
--- NOTE | 2021-01-06 00:20 | PC.NURSE ---
PT GIVEN HUMALOG 20UNITS PER DR. KUMAR'S ORDERS FOR HIGH BS. EMS CALLED FOR BYSTANDERS CALLING 911, PT WAS FOUND ON SIDEWAY YELLING OUT HELP . PT SLEEPY AND REFUSING TO LEAVE ON B/P CUFF. PT YELLING IN ROOM. UPON MD'S REQUEST PT MOVED TO ROOM #4 FOR CENTRAL LINE PLACEMENT.
[2021-01-06 00:22] LABS: SLIDE REVIEW VERIFIED
[2021-01-06] MEDS: Insulin Regular, Human 100 UNIT/ML 3 ML VIAL 10 UNIT IVPUSH (00:22)
[2021-01-06 00:25] LABS: Alanine Aminotransferase 23 U/L (0-31); Albumin Level 4.1 g/dL (3.5-5.0); Alkaline Phosphatase 175 U/L (39-117); Anion Gap 46 (12-20); Aspartate Amino Transferase 11 U/L (5-31); Bilirubin Direct 0.3 mg/dL (0.0-0.5); Bilirubin Total 0.5 mg/dL (0.0-1.0); Blood Urea Nitrogen 36 mg/dL (9-16); Carbon Dioxide 5 mmol/L (22-29); Chloride 89 mmol/L (96-108); Creatinine Clr Calc Pharmacy 23.3; Estimated Glomerular Filt Rate 21; Lipase 10 U/L (8-78); Magnesium 3.3 mg/dL (1.6-2.6); Potassium 5.1 mmol/L (3.3-5.1); Sodium 135 mmol/L (135-145); Total Protein 7.2 g/dL (6.5-8.0)
[2021-01-06 00:29] LABS: COVID-19 Test Negative (Negative); IDNOW Serial# 9DD0AD1C
[2021-01-06] MEDS: Piperacillin Sodium/Tazobactam 3.375 GM in 0.9 % Sodium Chloride 50 ML IV (00:31)
--- NOTE | 2021-01-06 00:39 | PC.NURSE ---
Report given to me by charge nurse Quan Trevino Iv placed and fluid started prior to taken assignment. medicated per jun. Pt placed on monitor. Per provider would like insulin drip to be on hold until notified to start.
--- NOTE | 2021-01-06 01:29 | PC.NURSE ---
Report given to SHELIA Ordaz, insulin drip to be started in ICU per PA and RN. Reported that Vanco, insulin drip needs to be started. ER provider is aware.
[2021-01-06 01:41] LABS: Glucose, Whole Blood > 600 mg/dL (60-115)
--- NOTE | 2021-01-06 01:50 | PC.NURSE ---
pt transferred to ICU.
[2021-01-06 01:55] LABS: Reflex Lactate? Lactic Acid Added
[2021-01-06 02:00] LABS: Glucose, Whole Blood > 600 mg/dL (60-115)
[2021-01-06] MEDS: propofoL 1,000 MG/100 ML VIAL 13.2 MG IVCONT (02:00)
[2021-01-06 03:01] LABS: Glucose, Whole Blood > 600 mg/dL (60-115)
--- NOTE | 2021-01-06 03:30 | W.PM.CCHP ---
Procedures Date of Service Date of Service: 01/06/21 Intubation Intubation Comments: Emergent endotracheal intubation performed with 7-cuffed ET tube with glidescope visualization of the vocal cords with no immediate complications.? ET tube position verified on chest x-ray. Consent for Procedure: Emergent-no informed consent obtained Time out performed: Yes Sedative: etomidate Mg given: 20 Paralytic: other (Nimbex) Mg given: 10 Laryngoscope: fiber optic video scope ET tube size: 7 ET tube uncuffed: No Tube secured depth (cm): 24 Tube secured location: lips Tube placement confirmation: visualized tube passing through cords, equal breath sounds bilaterally, no breath sounds over epigastrium and confirmation by capnometry Patient tolerated procedure: well and no complications Intubation complications: none
[2021-01-06] MEDS: Lactated Ringers 1,000 ML 200 ML IVCONT ×2 (03:32→06:31)
--- NOTE | 2021-01-06 03:32 | PM.CCHP ---
History of Present Illness Date of Service: 01/06/21 Attending physician on admission: Bora Mancini Chief Complaint: Hyperglycemia This is a 25-year-old female with a past medical history of type 1 diabetes mellitus,? anxiety,? poly substance abuse (heroin and cocaine), MRSA bacteremia? and recent admissions at this facility for DKA, who presented? to emergency room via ambulance? after? bystanders found her on the side of the road? asking for help.? ? EMS also reported POC? was too high to read on the field.? In the emergency room, the patient was lethargic, barely opening eyes to painful stimuli.? She was? afebrile, tachycardic to 130s, ? Normotensive,? respiratory rate 17,? satting? 100% on room air. Laboratory data significant for? WBC? 21.8,? absolute neutrophils 19.8,? potassium 5.1, chloride at 89,? bicarb 5, and anion gap 46, BUN 36, creatinine 2.83, random glucose 1753, lactic acid 4.7, magnesium 3.3.? Venous gas: 7.///5? ED course:??? In the emergency room she received 3 L of normal saline, Zosyn, vancomycin,? 10 units of IVpush insulin, and 20 units of subcu lispro,? and? 1 of Ativan.? Insulin drip was ordered She will be admitted to ICU for? hemodynamic management of diabetes ketoacidosis Review of Systems Review of Systems: Unable to perform patient is altered mental status PMFSH Past Medical History Medical History Anxiety Cocaine abuse Diabetes mellitus type 1 Endocarditis Heroin abuse Staphylococcus aureus bacteremia Social History Social History Household Members: Unknown / Unable to assess Housing: Homeless Do you presently have visiting nurse or other home services: No Unable to assess alcohol history related to: Unable to respond Alcohol intake: current Alcohol intake frequency: 3 or more drinks per day Alcohol type: beer, wine and hard liquor Patient Tobacco Use Status: Current everyday Tobacco user Tobacco use type: Cigarette Cigarette Packs Per Day: 1 Cigarettes Per Day: 20.0 Substance Use Type: Heroin, IV Drugs, Marijuana and Opiates Advance Directives: No Advance Directives Information Provided: No service: No Current occupational status: unemployed Meds Allergies Allergy/AdvReac Type Severity Reaction Status Date / Time No Known Allergies Allergy Verified 12/20/20 07:52 Active Medications: Current Medications Chlorhexidine Gluconate (Chlorhexidine Gluc Oral Rinse 15 Ml Mouthwash) 15 ml BUCCAL Q8H MIKKI Heparin Sodium (Porcine) (Heparin Sodium,Porcine 5,000 Unit/Ml Vial) 5,000 unit SUBCUT Q8H MIKKI Insulin Human Regular (Myxredlin) 100 unit in 100 mls @ 0 mls/hr IVCONT .Q0M MIKKI; Protocol Lactated Ringer's (Lr) 1,000 mls @ 200 mls/hr IVCONT .Q5H MIKKI Last Admin: 01/06/21 03:32 Dose: 200 mls/hr Documented by: Vancomycin HCl 1,000 mg/ (Sodium Chloride) 270 mls @ 270 mls/hr IV Q12H MIKKI Piperacillin Sod/Tazobactam (Sod 4.5 gm/ Sodium Chloride) 100 mls @ 200 mls/hr IV Q8H MIKKI Pantoprazole Sodium (Pantoprazole Sodium 40 Mg/10 Ml Vial) 40 mg IVPUSH DAILY@0630 [facility] Pharmacy Consult (Consult Rx Vancomycin Dosing) 1 each MISCELLANE DAILY PRN PRN Reason: Consult order Pharmacy Consult (Consult Rx Vancomycin Dosing) 1 each MISCELLANE DAILY PRN PRN Reason: Consult order Home Medications Medication Instructions Recorded Confirmed Last Taken Type insulin glargine 100 unit/mL (3 30 unit SUBCUT BEDTIME 09/24/20 12/19/20 Unknown History mL) subcutaneous pen (Lantus Solostar U-100 Insulin) insulin lispro 100 unit/mL See Protocol SUBCUT USEASDIRECTD 09/24/20 12/19/20 Unknown History subcutaneous solution (Humalog U-100 Insulin) quetiapine 100 mg tablet 0.5 - 1 tab PO BEDTIME PRN 12/19/20 12/19/20 Unknown History quetiapine 50 mg tablet 0.5 - 1 tab PO BID PRN 12/19/20 12/19/20 Unknown History Physical Exam Vital Signs: Vital Signs: Last Vital Signs Temp 0 F L 01/06/21 00:16 Pulse 129 H 01/06/21 03:00 Resp 20 01/06/21 03:00 BP 160/97 H 01/06/21 03:00 Pulse Ox 100 01/06/21 02:00 Body Mass Index 22.8 Constitutional: ? cachectic,?? Mental Status:? intubated Head: Normocephalic. Eyes: Pupils are equal, round and reactive to light. Ear, Nose and Throat:? dry mucous membranes. Ears and nose without masses, lesions or deformities. Trachea midline. Neck: Supple Respiratory:? lungs clear? in all johns. ? Satting 100% on AC settings:? 18/400/ 5/40% Cardiovascular: ? sinus tach? to 120. S1 S2 regular. No murmurs, rubs or gallops. Gastrointestinal: Abdomen soft, non-distended. Normal bowel sounds.? Genitourinary:? Sanchez catheter present Neurologic:? Able to move all extremities. Skin: multiple scabs and scars? all throughout the body, ? Especially in all 4 extremities.? Musculoskeletal: No gross deformities.? Results Labs CBC and Chem 7: 01/05/21 23:48 01/05/21 23:48 Labs: Laboratory Results - last 24 hr 01/05/21 01/05/21 01/05/21 23:48 23:48 23:48 MCV 100.5 H MCH 26.6 L MCHC 26.4 L RDW 18.5 H Plt Count 533 H MPV 10.1 Immature Gran % (Auto) 0.6 H Neut % (Auto) 90.8 H Lymph % (Auto) 5.5 L [place] % (Auto) 2.8 Eos % (Auto) 0.0 Baso % (Auto) 0.3 Lymph # (Auto) 1.2 [place] # (Auto) 0.6 Eos # (Auto) 0.0 Baso # (Auto) 0.1 Abs Immat Gran (auto) 0.14 H Absolute Neuts (auto) 19.8 H Absolute Nucleated RBC 0.000 Nucleated RBC % (auto) 0.0 Smear Tech's Comments VERIFIED VBG pH VBG pCO2 VBG pO2 VBG HCO3 VBG O2 Saturation VBG Base Excess Anion Gap 46 H Estim Creat Clear Calc 23.3 Estimated GFR 21 POC Glucose Random Glucose 1753 H* D Lactic Acid 4.7 H* Calcium 10.0 D Magnesium 3.3 H Total Bilirubin 0.5 Direct Bilirubin 0.3 AST 11 D ALT 23 Alkaline Phosphatase 175 H D Total Protein 7.2 Albumin 4.1 Lipase 10 Acetone, Qual Small H COVID-19 (BRENDA) COVID-19 Clin Com 01/05/21 01/05/21 01/06/21 23:54 23:55 01:36 MCV MCH MCHC RDW Plt Count MPV Immature Gran % (Auto) Neut % (Auto) Lymph % (Auto) [place] % (Auto) Eos % (Auto) Baso % (Auto) Lymph # (Auto) [place] # (Auto) Eos # (Auto) Baso # (Auto) Abs Immat Gran (auto) Absolute Neuts (auto) Absolute Nucleated RBC Nucleated RBC % (auto) Smear Tech's Comments VBG pH 7.08 L* VBG pCO2 18 VBG pO2 63 VBG HCO3 5 L VBG O2 Saturation 75.0 VBG Base Excess -22.2 Anion Gap Estim Creat Clear Calc Estimated GFR POC Glucose > 600 H* Random Glucose Lactic Acid Calcium Magnesium Total Bilirubin Direct Bilirubin AST ALT Alkaline Phosphatase Total Protein Albumin Lipase Acetone, Qual COVID-19 (BRENDA) Negative COVID-[employer] See Note 01/06/21 01/06/21 01:55 02:56 MCV MCH MCHC RDW Plt Count MPV Immature Gran % (Auto) Neut % (Auto) Lymph % (Auto) [place] % (Auto) Eos % (Auto) Baso % (Auto) Lymph # (Auto) [place] # (Auto) Eos # (Auto) Baso # (Auto) Abs Immat Gran (auto) Absolute Neuts (auto) Absolute Nucleated RBC Nucleated RBC % (auto) Smear Tech's Comments VBG pH VBG pCO2 VBG pO2 VBG HCO3 VBG O2 Saturation VBG Base Excess Anion Gap Estim Creat Clear Calc Estimated GFR POC Glucose > 600 H* > 600 H* Random Glucose Lactic Acid Calcium Magnesium Total Bilirubin Direct Bilirubin AST ALT Alkaline Phosphatase Total Protein Albumin Lipase Acetone, Qual COVID-19 (BRENDA) COVID-[employer] Com Assessment and Plan (1) Diabetic ketoacidosis associated with type 1 diabetes mellitus: Qualifiers: Diabetes mellitus complication detail: without coma Qualified Code(s): E10.10 - Type 1 diabetes mellitus with ketoacidosis without coma Status: Acute ?25-year-old female with underlying insulin dependent diabetic mellitus and polysubstance abuse admitted with diabetic ketoacidosis secondary to poor compliance with insulin further complicated by acute renal failure and bacteremia? Plan: Neuro: Lethargic/obtunded-? on arrival to the ICU patient minimally responded.? Required emergent intubation for airway protection. ? Likely from severe acidosis from DKA.? Should improve? once DKA is resolved Cardiac:?? Elevated lactic-? no evidence for severe septic shock as patient? is normotensive? and no fevers.? Elevated lactic is likely due to DKA. Pulmonary:? No acute issues. Renal:?? Acute renal failure, likely secondary to glucosuria and hypoperfusion, nonoliguric.? Continue IV fluid.? Continue to check renal induces and urine output Endo:? Type 1 diabetes /diabetic ketoacidosis-? continue insulin drip until her gap is close. Follow DKA protocol? GI:? No acute issues. ID:? ??Leukocytosis/ bacteremia-? WBC? elevated to 21.? On 12/19/2020 blood cultures were positive for MRSA,? ID was involved in this was likely from IV drug use.? Last echo on 09/25/20 did not show vegetation.? Will continue empiric antibiotics until? new blood cultures result. ? ID consult in the AM? Heme/Onc:? No acute issues. Psych:?? ?Patient with multiple admissions due to poor compliance with diabetes mellitus and substance abuse.? She also has left AMA multiple times in the past.? Will consult psych for possible Section 35.? Prophylaxis:? subQ heparin,? IV Protonix Diet:? Nothing by mouth ?Critical care time: x 120 min of critical care time? Case discussed with attending Dr Mancini (2) Bacteremia: Status: Acute (3) Staphylococcus aureus bacteremia: Status: Acute (4) Polysubstance abuse: Status: Acute (5) Leukocytosis: Qualifiers: Leukocytosis type: unspecified Qualified Code(s): D72.829 - Elevated white blood cell count, unspecified Status: Acute (6) RUDI (acute kidney injury): Status: Acute Critical Care Time Critical Care Time (minutes): 120
[2021-01-06] MEDS: Heparin Sodium,Porcine 5,000 UNIT/ML VIAL 5000 UNIT SUBCUT ×3 (03:40→22:17)
[2021-01-06] MEDS: vancomycin HCL 1,000 MG in 0.9 % Sodium Chloride 250 ML 270 MG IV (03:40)
[2021-01-06] MEDS: Insulin Regular/NS 100 UNIT/100 ML PLAST..BAG 20 UNIT IVCONT (03:42)
[2021-01-06 04:00] LABS: Appearance Urine CLEAR; Color Urine STRAW; Glucose Urine UA >=1000 MG/DL (NEG); Leukocyte Esterase Urine NEG (NEG); Nitrite Urine NEG (NEG); PH 5.5 (5.0-8.0); UACC Culture Trigger NO; Urine Blood TRACE (NEG); Urine Ketones 40 MG/DL (NEG); Urine Protein NEG (NEG-TRACE)
[2021-01-06 04:02] LABS: UPreg QC Valid YES; Urine Pregnancy NEGATIVE (NEGATIVE)
[2021-01-06 04:09] LABS: MANUAL DIFF FLAG SCAN; SCAN SMEAR FLAG 1
[2021-01-06 04:10] LABS: Amphetamine Screen Urine Not Detected (Not Detect); Barbiturates, Urine Not Detected (Not Detect); Benzodiazepines Screen Urine Not Detected (Not Detect); Cannabinoid Screen Urine Not Detected (Not Detect); Cocaine Screen Urine POSITIVE (Not Detect); Fentanyl, urine POSITIVE (Not Detect); Opiate Screen Urine POSITIVE (Not Detect); Phencyclidine Screen Urine Not Detected (Not Detect)
[2021-01-06 04:11] LABS: Venous Blood Gas Refer to POC result
[2021-01-06 04:12] LABS: VBG Base Excess -13.1 mmol/L; VBG HCO3 13 mmol/L (22-26); VBG pCO2 32 mmHg; VBG pH 7.21 (7.32-7.43); VBG pO2 96 mmHg
[2021-01-06 04:12] LABS: Mucus Urine TRACE /LPF; Squamous Epithelial Cell Urine TRACE /LPF; WBC Urine 0-2 /HPF (0-4)
[2021-01-06 04:14] LABS: ~Lactic Acid-LAB USE ONLY 1.3 mmol/L (0.5-2.0)
[2021-01-06 04:16] LABS: Basophils Percent Auto 0.1 % (0-2); Hematocrit 36.7 % (37-47); Hemoglobin 11.5 g/dl (12.0-16.0); Imm Gran Abs Auto 0.18 X10*3/uL (0.00-0.03); Imm Gran Pct Auto 0.7 % (0.0-0.4); Lymphocytes Absolute Auto 2.4 X10*3/uL (1.2-4.9); Mean Corpuscular HGB Conc 31.3 g/dl (31.0-35.0); Mean Corpuscular Hemoglobin 26.8 pg (27.0-33.0); Mean Platelet Volume 9.2 fL (9.4-12.3); Monocytes Absolute Auto 0.9 X10*3/uL (0.1-1.2); Monocytes Percent Auto 3.5 % (2-11); Neutrophils Absolute Auto 20.6 X10*3/uL (2.0-8.3); Neutrophils Percent Auto 85.7 % (45-73); Platelet Count 410 X10*3/uL (160-400); Red Blood Count 4.29 X10*6/uL (4.20-5.50); Red Cell Distribution Width 17.2 % (11.0-16.0)
[2021-01-06 04:17] LABS: Mean Corpuscular Volume 85.5 fL (80-98)
[2021-01-06 04:17] LABS: Glucose, Whole Blood > 600 mg/dL (60-115)
[2021-01-06 04:25] LABS: Anion Gap 24 (12-20); Blood Urea Nitrogen 28 mg/dL (9-16); Calcium 9.5 mg/dL (8.4-10.2); Carbon Dioxide 14 mmol/L (22-29); Chloride 117 mmol/L (96-108); Estimated Glomerular Filt Rate 34; Glucose Random 708 mg/dL (60-115); Potassium 2.8 mmol/L (3.3-5.1); Sodium 152 mmol/L (135-145)
[2021-01-06] MEDS: Cisatracurium Besylate 20 MG/10 ML VIAL 10 MG IVPUSH (04:40)
[2021-01-06] MEDS: Etomidate 20 MG/10 ML VIAL IVPUSH (04:41)
[2021-01-06] MEDS: Ketamine HCl 500 MG/5 ML VIAL 100 MG IVPUSH (04:42)
[2021-01-06] MEDS: Potassium Chloride/H20 40 MEQ/100 ML PIGGYBACK 100 MEQ IV ×2 (04:46→05:50)
[2021-01-06 05:01] LABS: Magnesium 2.4 mg/dL (1.6-2.6); Phosphorus 2.3 mg/dL (2.7-4.5)
[2021-01-06 05:19] LABS: Glucose, Whole Blood 533 mg/dL (60-115)
[2021-01-06] MEDS: Insulin Regular/NS 100 UNIT/100 ML PLAST..BAG 15 UNIT IVCONT (05:52)
[2021-01-06 06:05] LABS: Glucose, Whole Blood 401 mg/dL (60-115)
[2021-01-06] MEDS: Pantoprazole Sodium 40 MG/10 ML VIAL IVPUSH (06:31)
[2021-01-06] MEDS: Piperacillin Sodium/Tazobactam 4.5 GM in 0.9 % Sodium Chloride 100 ML IV ×3 (06:31→22:17)
[2021-01-06] MEDS: Chlorhexidine Gluc Oral Rinse 15 ML MOUTHWASH BUCCAL ×3 (06:31→22:17)
[2021-01-06] MEDS: propofoL 1,000 MG/100 ML VIAL 14.85 MG IVCONT ×3 (07:28→20:01)
[2021-01-06 07:46] LABS: Glucose, Whole Blood 314 mg/dL (60-115)
[2021-01-06] MEDS: Potassium Phosphate 30 MMOL in 0.9 % Sodium Chloride 500 ML 85 MMOL IV (08:13)
--- NOTE | 2021-01-06 09:29 | MHC.CDI.CONC ---
CDI Concurrent Query Documentation Clarification: PHYSICIAN'S DOCUMENTATION REQUEST Date of Query: 01/06/2131 Patient Name: María Morgan Admit Date: 01/06/21 Dear Doctor, A review of the medical record indicates additional documentation may be needed. Please review below and update the documentation accordingly. Clinical Indicators: The following diagnoses or signs and symptoms were noted in the patient record: Labs: Hypokalemia Other findings, or undetermined Risk Factors/Clinical Indicators/Treatments LABS: potassium 2.8 replenish potassium phosphate IV Based on the above, could you clarify in the Progress Notes the appropriate diagnosis, if significant, that supports the above abnormalities and additional evaluation, monitoring, and/or treatment rendered: Labs indicate a diagnosis of (please specify) Other (please specify) Unable to determine Use of terms such as suspected, likely, concern for, or probable (associated with a specific diagnosis that is being evaluated, monitored, or treated as if it exists) are acceptable and can be coded in the inpatient setting, when documented at the time of discharge. Thank you, Vicki Munoz [facility], CDIS Extension: [phone] Please use your independent medical judgment in providing your response. THIS QUERY IS PART OF THE PERMANENT MEDICAL RECORD Provider Response: Other Other Diagnosis: Hypokalemia
[2021-01-06 09:30] LABS: Anion Gap 14 (12-20); Blood Urea Nitrogen 23 mg/dL (9-16); Calcium 9.3 mg/dL (8.4-10.2); Carbon Dioxide 24 mmol/L (22-29); Chloride 125 mmol/L (96-108); Creatinine Clr Calc Pharmacy 46.8; Estimated Glomerular Filt Rate 50; Glucose Random 187 mg/dL (60-115); Potassium 4.6 mmol/L (3.3-5.1); Sodium 158 mmol/L (135-145)
--- NOTE | 2021-01-06 09:35 | MHC.CDI.CONC ---
CDI Concurrent Query Documentation Clarification: PHYSICIAN'S DOCUMENTATION REQUEST Date of Query: 01/06/21 0935 Patient Name: María Morgan Admit Date: 01/06/21 Dear Doctor, A review of the medical record indicates additional documentation may be needed. Please review below and update the documentation accordingly. Clinical Indicators: The following diagnoses or signs and symptoms were noted in the patient record: Labs: Hypernatremia Other if known or undetermined Risk Factors/Clinical Indicators/Treatments LABS: sodium 152 H 158 H IV fluids Based on the above, could you clarify in the Progress Notes the appropriate diagnosis, if significant, that supports the above abnormalities and additional evaluation, monitoring, and/or treatment rendered: Labs indicate a diagnosis of (please specify) Other (please specify) Unable to determine Use of terms such as suspected, likely, concern for, or probable (associated with a specific diagnosis that is being evaluated, monitored, or treated as if it exists) are acceptable and can be coded in the inpatient setting, when documented at the time of discharge. Thank you, Vicki Munoz [facility], CDIS Extension: [phone] Please use your independent medical judgment in providing your response. THIS QUERY IS PART OF THE PERMANENT MEDICAL RECORD Provider Response: Other Other Diagnosis: Iatrogenic hypernatremia
[2021-01-06 09:49] LABS: Glucose, Whole Blood 149 mg/dL (60-115)
--- NOTE | 2021-01-06 10:05 | MHC.CM.PN ---
Pt intubated in ICU and unable to participate in CM assessment: Pt is well known from many past admissions for DKA, bacteremia, endocarditis and IVDA w/d. Pt has a well documented hx of leaving AMA including from a Section 35 facility this past year. Will await extubation and improvement in mental status and reapproach pt. A CARE team consult has been discussed with ICU MD as well once pts condition improves. CM to follow
--- NOTE | 2021-01-06 10:10 | MHC.CLN ---
PT IS SEVERELY MALNOURISHED PT WITH SEVERELY DEPLETED SUBCUTANEOUS FAT AND MUSCLE MASS AND BMI 18.6. PT IS HOMELESS AND LIVES ON STREETS. PT IS NONCOMPLIANT WITH ALL ASPECTS OF CARE INCLUDING MEDS/HYGIENE. CHRONIC POOR PO INTAKE R/T DRUG ADDICTION AND HOMELESSNESS. PT IS CURRENTLY SEDATED AND INTUBATED IF TF NEEDED; RECOMMEND PROMOTE AT MAX GOAL RATE 40ML/HR WITH 240CC FREE WATER FLUSHES Q SHIFT TO PROVIDE 960KCALS (1352KCALS WITH SEDATION; 30KCALS/KG), 60G PROTEIN (1.3G/KG), 1525CC TOTAL WATER FROM FORMULA AND FLUSHES (34CC/KG) PT AT RISK FOR REFEEDING SYNDROME-MONITOR MG, PHOS AND K+ CLOSELY MONITOR TOLERANCE, RESIDUALS AND LYTES SEE CLINICAL NUTRITION ASSESSMENT
--- NOTE | 2021-01-06 10:16 | PHA.PROG ---
Admission Date/Time: January 06, 2021 00:43 Indication: Bacteremia Weight in k.7 kg Adjusted body weight in K.7 kg [place] body weight in K.8 Serum Creatinine - Last 168 Hours 01/05/21 01/06/21 01/06/21 23:48 03:54 08:38 Creatinine 2.83 H 1.83 H 1.32 Estimated CrCl and GFR - Last 168 Hours 01/05/21 01/06/21 01/06/21 23:48 03:54 08:38 Estim Creat Clear Calc 23.3 36.0 46.8 Estimated GFR 21 34 50 Vancomycin Loading Dose: Current Vancomycin Dosing Regimen: Vancomycin Monitoring using AUC goal of 400 - 600 range with trough as surrogate marker: Date and Time for next Vancomycin Level to be drawn: 01/09 @0300 Pharmacist Comments on Vancomycin Plan: 1gm q24 based on current crcl, predicted AUC = 460, trough 12.8, Vancomycin dosing will take advantage of [employer] as a clinical decision support tool that uses Bayesian modeling to calculate individual patient's pharmacokinetic parameters and forecast the patient's drug concentration time course with the target goal AUC 24 range of 400 - 600 mg/L/hr.
[2021-01-06] MEDS: Dextrose 5 % 1,000 ML 80 ML IVCONT ×2 (10:43→20:01)
[2021-01-06 11:04] LABS: Glucose, Whole Blood 185 mg/dL (60-115)
--- NOTE | 2021-01-06 11:22 | PC.NURSE ---
Pt maintained on ventilator. Propofol at 50 mcgs/kg/min via R-IJ TLC. NA+ level 154, LR changed to D5W at 80 mls an hr via R-IJ TLC. Sub abuse senior technical support engineer at bedside. PT sedated and case reviewed. Insulin gtt D/C'd. Last Blood glucose 169. MD aware. Urine output decreased to zero hourly and MD made aware. Sanchez flushed for positive patency. Assessment ongoing.
--- NOTE | 2021-01-06 12:30 | CA_ITS ---
Transthoracic Echocardiogram Patient (Last, First, Middle): María Morgan, Gender: Female Date of : 1995 Age: 25 Procedure Date: 01/06/2021 Procedure Type: Transthoracic Echocardiogram Location: ICU Height: 160.02 cm Weight: 53.52 kg BSA: 1.55 m2 Heart Rate: bpm BP: 112 / 50 mmHg Leather Dresser: LAURA Referring MD: Bora Mancini MD Halftone Operator: Renzo Niño MD Symptoms: r/o endocarditis; RV and IVC (intravascular volume) Study Quality: Fair ECG Rhythm: Sinus tachycardia Conclusions: - 1. Normal LV systolic function 2. Normal cardiac valvular Doppler with no clear vegetations seen on this study 3. Normal right atrial pressures 4. No gross pericardial effusion Findings Left Ventricle Normal left ventricular size, thickness, and systolic function. The visually estimated ejection fraction is between 60-65%. Regional wall motion abnormalities can not be excluded due to suboptimal endocardial definition. Diastolic function is indeterminate on the basis of available data. Right Ventricle Normal right ventricular cavity size and systolic function. Atria Both atria are normal in size. Interatrial shunt cannot be excluded. Aortic Valve The aortic valve was not well visualized. There is no aortic valve stenosis. There is no aortic valve regurgitation. Mitral Valve Normal mitral valve structure and function. There is trace mitral valve regurgitation. There is no mitral valve stenosis. Pulmonic Valve The pulmonic valve was not well visualized. Tricuspid Valve Likely normal tricuspid valve structure and function. Tricuspid regurgitation envelope is inadequate for calculation of right ventricular systolic pressure. Normal right atrial pressure. Great Vessels All visible segments of the aorta are normal in size. The pulmonary artery was not well visualized. Venous The inferior vena cava is normal in size and collapses greater than 50% with inspiration. Pericardium/Pleural There is no evidence of pericardial effusion. Prior Study Comparison No significant change compared to prior study dated: 09/25/2020. Recommendations, Care & Conclusions Consider a GEETHA if clinically appropriate. Measurements 2D Linear Measurements IVSd: 0.50 0.6-0.9/0.6-1.0 cm LVIDd: 4.04 3.9-5.3/4.2-5.9 cm LVIDd Index: 2.61 2.4-3.2/2.2-3.1 cm/m2 LVIDs: 2.19 2.0-3.6 cm LVPWd: 0.70 0.7-1.1 cm LV Mass: 81.06 67-162/88-224 g LV Mass Index: 52.29 43-95/49-115 g/m2 Updated in Other Vendor System with Status of Final Renzo Niño MD electronically signed on 01/06/2021 4:36:48 PM with status of Final
[2021-01-06 12:52] LABS: Glucose, Whole Blood 222 mg/dL (60-115)
[2021-01-06] MEDS: Insulin Regular/NS 100 UNIT/100 ML PLAST..BAG IVCONT (13:12)
[2021-01-06 14:54] LABS: Glucose, Whole Blood 326 mg/dL (60-115)
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
[2021-01-06] MEDS: QUEtiapine Fumarate 50 MG TABLET PO ×2 (15:06→20:05)
[2021-01-06] MEDS: fentaNYL citrate/PF 100 MCG/2 ML VIAL 200 MCG IVPUSH (15:06)
[2021-01-06] MEDS: fentaNYL citrate/PF 100 MCG/2 ML VIAL IVPUSH ×2 (15:25→20:05)
[2021-01-06 15:53] LABS: Blood Urea Nitrogen 26 mg/dL (9-16); Creatinine Clr Calc Pharmacy 38.8; Estimated Glomerular Filt Rate 40; Glucose Random 380 mg/dL (60-115); Magnesium 1.8 mg/dL (1.6-2.6)
[2021-01-06 16:01] LABS: Anion Gap 22 (12-20); Calcium 8.5 mg/dL (8.4-10.2); Carbon Dioxide 17 mmol/L (22-29); Chloride 119 mmol/L (96-108); Potassium 5.4 mmol/L (3.3-5.1); Sodium 153 mmol/L (135-145)
--- NOTE | 2021-01-06 16:03 | P.EN_ITS ---
Event Note Date of Service: 01/06/21 Event Note: Addiction note: Consult requested for 25 year old patient with severe substance use disorder and uncontrolled type I DM. Well known to [facility] and this commercial loan underwriter patient intubated and sedated in ICU. ? regarding Section 35 (ICU and ED provider considering) Plan: -this commercial loan underwriter to meet with [facility] steam conditioner filling to discuss -patient not a candidate for Section 35 if she is requiring long IVABX--must be medically stable, clinical picture not entirely clear at this time, so will revisit -will continue to follow
--- NOTE | 2021-01-06 16:03 | PM.EVENT ---
Event Note Date of Service: 01/06/21 Event Note: Addiction note: Consult requested for 25 year old patient with severe substance use disorder and uncontrolled type I DM. Well known to [facility] and this insurance writer patient intubated and sedated in ICU. ? regarding Section 35 (ICU and ED provider considering) Plan: -this insurance writer to meet with [facility] steam oven operator to discuss -patient not a candidate for Section 35 if she is requiring long IVABX--must be medically stable, clinical picture not entirely clear at this time, so will revisit -will continue to follow
[2021-01-06] MEDS: Sodium Chloride 0.45 % 1,000 ML 80 ML IVCONT (16:09)
--- NOTE | 2021-01-06 16:38 | PM.CCPN ---
Subjective Subjective Date of Service: 01/06/21 Interval History: Ms. Morgan was admitted to ICU early this morning with DKA. The patient is a 25-year-old female with a past medical history of diabetes, anxiety, IV drug use, and Staph aureus bacteremia and endocarditis. ?She?s had mult visits to this hospital, most commonly leaving AMA.? At her last admission two and a half weeks ago on December 19, blood cultures drawn in the ED came back positive at 13 hours for MRSA.? She left the hospital AMA before repeat blood cultures or an echocardiogram could be done.? No antibiotics were prescribed for her on the outside, and in fact she told the hospitalist that if a prescription were sent to a pharmacy, she would not pick it up. She previously had one out of two blood cultures positive for MRSA on 09/23/20, with subsequent negative BCs.? She had TTEs on 09/24/20 and 09/25/20, neither of which showed any vegetation.? But an echo on 08/18/20 showed a ?Large, mass like structure in the right atrium; measuring 3.5 x 2cm; could be vegetation or thrombus; attachment point is not clear, possibly lateral part of tricuspid annulus; in some views, there is protrusion into the tricuspid plane.? ?Her most recent BC prior to that echo was on 08/05 and 08/06/20, both of which were negative. HISTORY OF PRESENT ILLNESS:? The patient was BIBA to the ED late last night after bystanders found her on the side of the road asking for help.? EMS reported POC was too high out of range. In the emergency room, the patient was lethargic, barely opening eyes to painful stimuli.? She was? afebrile, tachycardic to 130s, normotensive, respiratory rate 17, sat?ing? 100% on room air.? Labs in the ED were notable for WBC? 21, BUN/creatinine 36/2.8 (baseline about 16/0.7), sodium 135, potassium 5.1, bicarb 5, random glucose 1753, albumin is 4.1.? Venous gas: ?Showed 7.08/18/-22. In the emergency room she was given 3 L of normal saline, Zosyn, vancomycin, 10 units of IVpush insulin, 20 units of subcu lispro, and Ativan 1 mg.? She was transferred to ICU for further care. In ICU, the patient was acutely ill and minimally responsive.? She required emergent intubation for airway protection.? A central line was placed for IV access.? She was treated with an insulin drip and LR in the usual fashion.? Vanco and Zosyn were continued. Chemistries this morning showed sodium up to 158, BUN/creatinine down to 23/1.3, potassium 4.6, bicarb 24, random glucose 187. The point of care was down to 149 so the insulin drip was stopped.? Because of the hyperglycemia, the patient was put on a D5W infusion.? The insulin infusion was restarted at 15:00 with the point of care up to 300. The patient weighs 44 kg and is grossly cachectic.? The patient's nose has a large and increasing erythematous area that looked like it might be an abscess.? I asked Dr. Mcclelland to come down look at it.? He put a needle in it but there was no pus. Laboratory data at 14:56:? Sodium is down to 153, BUN/creatinine up to 26/1.59, potassium 5.4 (after potassium phosphate IV) bicarb down 17, glucose 380, potassium 4.0, magnesium 1.8. Echocardiogram today done at the bedside by the [facility], interpreted by me.? Findings: Normal LV and RV chamber size and function.? No grossly obvious vegetation seen.? However, in certain views, there was a mass-like appearing structure on the mitral valve.? Await interpretation by Dr. Niño. IMPRESSION: 1. IV drug abuse. 2. Severe protein calorie malnutrition.? We?ll start tube feeds. 3. Terrible dentition. 4. DKA.? Restarted insulin drip.? Further mx as usual. 5. Persistent hypovolemia.? Continuing vol resuscitation. 6. Acute kidney injury.? 2? hypovolemia.? Doubt that she?s septic. 7. Hypernatremia (iatrogenic).? Using D5W + 1/2 NS for vol resuscitation. 8. ID:? In view of leukocytosis, we?re giving her broad spectrum abx (vanco and Zosyn) pending cultures.? Urine is clean and she doesn?t have pneumonia.? Given her bacteremia on 12/19/20, we?ll assume that she has endocarditis until proven otherwise by negative blood cultures.? I?ll wait 48 hrs to extubate her in case the BCs turn positive and she needs a GEETHA. 9. ? Nose abscess.? Nothing drainable, so it?s just a cellulitis.? Current abx should be adequate. Critical care time:? 90+ min. Critical Care Time (minutes): 90 Physical Exam Vital Signs: Vital Signs: Last Vital Signs Temp 99.7 F 01/06/21 16:00 Pulse 130 H 01/06/21 16:00 Resp 24 H 01/06/21 16:00 BP 101/39 L 01/06/21 16:00 Pulse Ox 97 01/06/21 16:00 Body Mass Index 18.6 Objective Data Labs CBC & Chem 7: 01/07/21 05:10 01/07/21 05:10 Labs: Laboratory Results - last 24 hr 01/05/21 01/05/21 01/05/21 23:48 23:48 23:48 WBC 21.8 H RBC 4.33 Hgb 11.5 L Hct 43.5 MCV 100.5 H MCH 26.6 L MCHC 26.4 L RDW 18.5 H Plt Count 533 H MPV 10.1 Immature Gran % (Auto) 0.6 H Neut % (Auto) 90.8 H Lymph % (Auto) 5.5 L [place] % (Auto) 2.8 Eos % (Auto) 0.0 Baso % (Auto) 0.3 Lymph # (Auto) 1.2 [place] # (Auto) 0.6 Eos # (Auto) 0.0 Baso # (Auto) 0.1 Abs Immat Gran (auto) 0.14 H Absolute Neuts (auto) 19.8 H Absolute Nucleated RBC 0.000 Nucleated RBC % (auto) 0.0 Smear Tech's Comments VERIFIED VBG pH VBG pCO2 VBG pO2 VBG HCO3 VBG O2 Saturation VBG Base Excess Sodium 135 Potassium 5.1 D Chloride 89 L Carbon Dioxide 5 L* D Anion Gap 46 H BUN 36 H D Creatinine 2.83 H Estim Creat Clear Calc 23.3 Estimated GFR 21 POC Glucose Random Glucose 1753 H* D Lactic Acid 4.7 H* Lactic Acid Fup @ 2Hr Calcium 10.0 D Phosphorus Magnesium 3.3 H Total Bilirubin 0.5 Direct Bilirubin 0.3 AST 11 D ALT 23 Alkaline Phosphatase 175 H D Total Protein 7.2 Albumin 4.1 Lipase 10 Urine Color Urine Appearance Urine pH Ur Specific [place] Urine Protein Urine Glucose (UA) Urine Ketones Urine Blood Urine Nitrite Ur Leukocyte Esterase Urine RBC Urine WBC Ur Squamous Epith Cells Urine Bacteria Urine Mucus Urine Test Urine Opiates Screen Urine Fentanyl Screen Ur Barbiturates Screen Ur Phencyclidine Scrn Ur Amphetamines Screen U Benzodiazepines Scrn Urine Cocaine Screen U Marijuana (THC) Screen Acetone, Qual Small H COVID-19 (BRENDA) COVID-19 [employer] 01/05/21 01/05/21 01/06/21 23:54 23:55 01:36 WBC RBC Hgb Hct MCV MCH MCHC RDW Plt Count MPV Immature Gran % (Auto) Neut % (Auto) Lymph % (Auto) [place] % (Auto) Eos % (Auto) Baso % (Auto) Lymph # (Auto) [place] # (Auto) Eos # (Auto) Baso # (Auto) Abs Immat Gran (auto) Absolute Neuts (auto) Absolute Nucleated RBC Nucleated RBC % (auto) Smear Tech's Comments VBG pH 7.08 L* VBG pCO2 18 VBG pO2 63 VBG HCO3 5 L VBG O2 Saturation 75.0 VBG Base Excess -22.2 Sodium Potassium Chloride Carbon Dioxide Anion Gap BUN Creatinine Estim Creat Clear Calc Estimated GFR POC Glucose > 600 H* Random Glucose Lactic Acid Lactic Acid Fup @ 2Hr Calcium Phosphorus Magnesium Total Bilirubin Direct Bilirubin AST ALT Alkaline Phosphatase Total Protein Albumin Lipase Urine Color Urine Appearance Urine pH Ur Specific [place] Urine Protein Urine Glucose (UA) Urine Ketones Urine Blood Urine Nitrite Ur Leukocyte Esterase Urine RBC Urine WBC Ur Squamous Epith Cells Urine Bacteria Urine Mucus Urine Test Urine Opiates Screen Urine Fentanyl Screen Ur Barbiturates Screen Ur Phencyclidine Scrn Ur Amphetamines Screen U Benzodiazepines Scrn Urine Cocaine Screen U Marijuana (THC) Screen Acetone, Qual COVID-19 (BRENDA) Negative COVID-19 [employer]os[employer] See Note 01/06/21 01/06/21 01/06/21 01:55 02:56 03:31 WBC RBC Hgb Hct MCV MCH MCHC RDW Plt Count MPV Immature Gran % (Auto) Neut % (Auto) Lymph % (Auto) [place] % (Auto) Eos % (Auto) Baso % (Auto) Lymph # (Auto) [place] # (Auto) Eos # (Auto) Baso # (Auto) Abs Immat Gran (auto) Absolute Neuts (auto) Absolute Nucleated RBC Nucleated RBC % (auto) Smear Tech's Comments VBG pH VBG pCO2 VBG pO2 VBG HCO3 VBG O2 Saturation VBG Base Excess Sodium Potassium Chloride Carbon Dioxide Anion Gap BUN Creatinine Estim Creat Clear Calc Estimated GFR POC Glucose > 600 H* > 600 H* Random Glucose Lactic Acid Lactic Acid Fup @ 2Hr Calcium Phosphorus Magnesium Total Bilirubin Direct Bilirubin AST ALT Alkaline Phosphatase Total Protein Albumin Lipase Urine Color Urine Appearance Urine pH Ur Specific [place] Urine Protein Urine Glucose (UA) Urine Ketones Urine Blood Urine Nitrite Ur Leukocyte Esterase Urine RBC Urine WBC Ur Squamous Epith Cells Urine Bacteria Urine Mucus Urine Test NEGATIVE Urine Opiates Screen Urine Fentanyl Screen Ur Barbiturates Screen Ur Phencyclidine Scrn Ur Amphetamines Screen U Benzodiazepines Scrn Urine Cocaine Screen U Marijuana (THC) Screen Acetone, Qual COVID-19 (BRENDA) COVID-19 Clin Com 01/06/21 01/06/21 01/06/21 03:31 03:31 03:54 WBC RBC Hgb Hct MCV MCH MCHC RDW Plt Count MPV Immature Gran % (Auto) Neut % (Auto) Lymph % (Auto) [place] % (Auto) Eos % (Auto) Baso % (Auto) Lymph # (Auto) [place] # (Auto) Eos # (Auto) Baso # (Auto) Abs Immat Gran (auto) Absolute Neuts (auto) Absolute Nucleated RBC Nucleated RBC % (auto) Smear Tech's Comments VBG pH VBG pCO2 VBG pO2 VBG HCO3 VBG O2 Saturation VBG Base Excess Sodium Potassium Chloride Carbon Dioxide Anion Gap BUN Creatinine Estim Creat Clear Calc Estimated GFR POC Glucose Random Glucose Lactic Acid Lactic Acid Fup @ 2Hr 1.3 Calcium Phosphorus Magnesium Total Bilirubin Direct Bilirubin AST ALT Alkaline Phosphatase Total Protein Albumin Lipase Urine Color STRAW Urine Appearance CLEAR Urine pH 5.5 Ur Specific [place] 1.010 Urine Protein NEG Urine Glucose (UA) >=1000 H Urine Ketones 40 Urine Blood TRACE Urine Nitrite NEG Ur Leukocyte Esterase NEG Urine RBC 1-4 Urine WBC 0-2 Ur Squamous Epith Cells TRACE Urine Bacteria NONE Urine Mucus TRACE Urine Test Urine Opiates Screen POSITIVE H Urine Fentanyl Screen POSITIVE H Ur Barbiturates Screen Not Detected Ur Phencyclidine Scrn Not Detected Ur Amphetamines Screen Not Detected U Benzodiazepines Scrn Not Detected Urine Cocaine Screen POSITIVE H U Marijuana (THC) Screen Not Detected Acetone, Qual COVID-19 (BRENDA) COVID-19 Clin Com 01/06/21 01/06/21 01/06/21 03:54 03:54 04:03 WBC 24.0 H RBC 4.29 Hgb 11.5 L Hct 36.7 L MCV 85.5 D MCH 26.8 L MCHC 31.3 RDW 17.2 H Plt Count 410 H MPV 9.2 L Immature Gran % (Auto) 0.7 H Neut % (Auto) 85.7 H Lymph % (Auto) 10.0 L [place] % (Auto) 3.5 Eos % (Auto) 0.0 Baso % (Auto) 0.1 Lymph # (Auto) 2.4 [place] # (Auto) 0.9 Eos # (Auto) 0.0 Baso # (Auto) 0.0 Abs Immat Gran (auto) 0.18 H Absolute Neuts (auto) 20.6 H Absolute Nucleated RBC 0.000 Nucleated RBC % (auto) 0.0 Smear Tech's Comments VBG pH 7.21 L VBG pCO2 32 VBG pO2 96 VBG HCO3 13 L VBG O2 Saturation 95.0 VBG Base Excess -13.1 Sodium 152 H Potassium 2.8 L D Chloride 117 H D Carbon Dioxide 14 L Anion Gap 24 H BUN 28 H Creatinine 1.83 H Estim Creat Clear Calc 36.0 Estimated GFR 34 POC Glucose Random Glucose 708 H* D Lactic Acid Lactic Acid Fup @ 2Hr Calcium 9.5 Phosphorus 2.3 L Magnesium 2.4 Total Bilirubin Direct Bilirubin AST ALT Alkaline Phosphatase Total Protein Albumin Lipase Urine Color Urine Appearance Urine pH Ur Specific [place] Urine Protein Urine Glucose (UA) Urine Ketones Urine Blood Urine Nitrite Ur Leukocyte Esterase Urine RBC Urine WBC Ur Squamous Epith Cells Urine Bacteria Urine Mucus Urine Test Urine Opiates Screen Urine Fentanyl Screen Ur Barbiturates Screen Ur Phencyclidine Scrn Ur Amphetamines Screen U Benzodiazepines Scrn Urine Cocaine Screen U Marijuana (THC) Screen Acetone, Qual COVID-19 (BRENDA) COVID-19 Clin Com 01/06/21 01/06/21 01/06/21 04:14 05:14 06:02 WBC RBC Hgb Hct MCV MCH MCHC RDW Plt Count MPV Immature Gran % (Auto) Neut % (Auto) Lymph % (Auto) [place] % (Auto) Eos % (Auto) Baso % (Auto) Lymph # (Auto) [place] # (Auto) Eos # (Auto) Baso # (Auto) Abs Immat Gran (auto) Absolute Neuts (auto) Absolute Nucleated RBC Nucleated RBC % (auto) Smear Tech's Comments VBG pH VBG pCO2 VBG pO2 VBG HCO3 VBG O2 Saturation VBG Base Excess Sodium Potassium Chloride Carbon Dioxide Anion Gap BUN Creatinine Estim Creat Clear Calc Estimated GFR POC Glucose > 600 H* 533 H* 401 H* Random Glucose Lactic Acid Lactic Acid Fup @ 2Hr Calcium Phosphorus Magnesium Total Bilirubin Direct Bilirubin AST ALT Alkaline Phosphatase Total Protein Albumin Lipase Urine Color Urine Appearance Urine pH Ur Specific [place] Urine Protein Urine Glucose (UA) Urine Ketones Urine Blood Urine Nitrite Ur Leukocyte Esterase Urine RBC Urine WBC Ur Squamous Epith Cells Urine Bacteria Urine Mucus Urine Test Urine Opiates Screen Urine Fentanyl Screen Ur Barbiturates Screen Ur Phencyclidine Scrn Ur Amphetamines Screen U Benzodiazepines Scrn Urine Cocaine Screen U Marijuana (THC) Screen Acetone, Qual COVID-19 (BRENDA) COVID-19 Clin Com 01/06/21 01/06/21 01/06/21 07:43 08:38 09:43 WBC RBC Hgb Hct MCV MCH MCHC RDW Plt Count MPV Immature Gran % (Auto) Neut % (Auto) Lymph % (Auto) [place] % (Auto) Eos % (Auto) Baso % (Auto) Lymph # (Auto) [place] # (Auto) Eos # (Auto) Baso # (Auto) Abs Immat Gran (auto) Absolute Neuts (auto) Absolute Nucleated RBC Nucleated RBC % (auto) Smear Tech's Comments VBG pH VBG pCO2 VBG pO2 VBG HCO3 VBG O2 Saturation VBG Base Excess Sodium 158 H Potassium 4.6 D Chloride 125 H Carbon Dioxide 24 Anion Gap 14 BUN 23 H Creatinine 1.32 Estim Creat Clear Calc 46.8 Estimated GFR 50 POC Glucose 314 H 149 H Random Glucose 187 H D Lactic Acid Lactic Acid Fup @ 2Hr Calcium 9.3 Phosphorus Magnesium Total Bilirubin Direct Bilirubin AST ALT Alkaline Phosphatase Total Protein Albumin Lipase Urine Color Urine Appearance Urine pH Ur Specific [place] Urine Protein Urine Glucose (UA) Urine Ketones Urine Blood Urine Nitrite Ur Leukocyte Esterase Urine RBC Urine WBC Ur Squamous Epith Cells Urine Bacteria Urine Mucus Urine Test Urine Opiates Screen Urine Fentanyl Screen Ur Barbiturates Screen Ur Phencyclidine Scrn Ur Amphetamines Screen U Benzodiazepines Scrn Urine Cocaine Screen U Marijuana (THC) Screen Acetone, Qual COVID-19 (BRENDA) COVID-19 Clin Com 01/06/21 01/06/21 01/06/21 11:00 12:48 14:50 WBC RBC Hgb Hct MCV MCH MCHC RDW Plt Count MPV Immature Gran % (Auto) Neut % (Auto) Lymph % (Auto) [place] % (Auto) Eos % (Auto) Baso % (Auto) Lymph # (Auto) [place] # (Auto) Eos # (Auto) Baso # (Auto) Abs Immat Gran (auto) Absolute Neuts (auto) Absolute Nucleated RBC Nucleated RBC % (auto) Smear Tech's Comments VBG pH VBG pCO2 VBG pO2 VBG HCO3 VBG O2 Saturation VBG Base Excess Sodium Potassium Chloride Carbon Dioxide Anion Gap BUN Creatinine Estim Creat Clear Calc Estimated GFR POC Glucose 185 H 222 H 326 H Random Glucose Lactic Acid Lactic Acid Fup @ 2Hr Calcium Phosphorus Magnesium Total Bilirubin Direct Bilirubin AST ALT Alkaline Phosphatase Total Protein Albumin Lipase Urine Color Urine Appearance Urine pH Ur Specific [place] Urine Protein Urine Glucose (UA) Urine Ketones Urine Blood Urine Nitrite Ur Leukocyte Esterase Urine RBC Urine WBC Ur Squamous Epith Cells Urine Bacteria Urine Mucus Urine Test Urine Opiates Screen Urine Fentanyl Screen Ur Barbiturates Screen Ur Phencyclidine Scrn Ur Amphetamines Screen U Benzodiazepines Scrn Urine Cocaine Screen U Marijuana (THC) Screen Acetone, Qual COVID-19 (BRENDA) COVID-19 Clin Com 01/06/21 14:56 WBC RBC Hgb Hct MCV MCH MCHC RDW Plt Count MPV Immature Gran % (Auto) Neut % (Auto) Lymph % (Auto) [place] % (Auto) Eos % (Auto) Baso % (Auto) Lymph # (Auto) [place] # (Auto) Eos # (Auto) Baso # (Auto) Abs Immat Gran (auto) Absolute Neuts (auto) Absolute Nucleated RBC Nucleated RBC % (auto) Smear Tech's Comments VBG pH VBG pCO2 VBG pO2 VBG HCO3 VBG O2 Saturation VBG Base Excess Sodium 153 H Potassium 5.4 H Chloride 119 H Carbon Dioxide 17 L Anion Gap 22 H BUN 26 H Creatinine 1.59 H Estim Creat Clear Calc 38.8 Estimated GFR 40 POC Glucose Random Glucose 380 H* Lactic Acid Lactic Acid Fup @ 2Hr Calcium 8.5 D Phosphorus 4.0 Magnesium 1.8 Total Bilirubin Direct Bilirubin AST ALT Alkaline Phosphatase Total Protein Albumin Lipase Urine Color Urine Appearance Urine pH Ur Specific [place] Urine Protein Urine Glucose (UA) Urine Ketones Urine Blood Urine Nitrite Ur Leukocyte Esterase Urine RBC Urine WBC Ur Squamous Epith Cells Urine Bacteria Urine Mucus Urine Test Urine Opiates Screen Urine Fentanyl Screen Ur Barbiturates Screen Ur Phencyclidine Scrn Ur Amphetamines Screen U Benzodiazepines Scrn Urine Cocaine Screen U Marijuana (THC) Screen Acetone, Qual COVID-19 (BRENDA) COVID-19 Clin Com Quality Stroke Does the patient have a stroke diagnosis?: No VTE Prior VTE?: No VTE Risk Level:: Medical - low VTE Device Contraindication: Treatment Not Indicated VTE Drug Contraindication: N/A - Med Ordered Critical Care Time Critical Care Time (minutes): 90
--- NOTE | 2021-01-06 16:40 | P.CONGS_ITS ---
History of Present Illness Consult details Consult date: 01/06/21 Requesting physician: Bora Mancini Narrative: 25-year-old female patient with history of diabetes mellitus type 1, heroin and cocaine abuse brought to emergency department after being found by bystanders its down on the ground at the side of the road. Point of care performed by EMS showed her glucose to hide to be red. She was admitted for diabetic ketoacidosis. Lactic acid was 4.7 and WBC 21.8. Patient was noted to have an area of redness in the bridge of the nose and this increased over the day today. Surgical consultation was requested for possible incision and drainage of a nasal/facial abscess. The patient is intubated and sedated in the ICU. Review of Systems Review of Systems: Yes unobtainable due to endotracheal tube PMFSH Past Medical History Medical History Anxiety Cocaine abuse Diabetes mellitus type 1 Endocarditis Heroin abuse Staphylococcus aureus bacteremia Family History Family history: reviewed and not pertinent Social History Social History Household Members: Unknown / Unable to assess Housing: Homeless Do you presently have visiting nurse or other home services: No Unable to assess alcohol history related to: Unable to respond Alcohol intake: current Alcohol intake frequency: 3 or more drinks per day Alcohol type: beer, wine and hard liquor Patient Tobacco Use Status: Current everyday Tobacco user Tobacco use type: Cigarette Cigarette Packs Per Day: 1 Cigarettes Per Day: 20.0 Substance Use Type: Heroin, IV Drugs, Marijuana and Opiates Currently Displaying Signs/Symptoms of Drug Intoxication Withdrawal: Yes Advance Directives: No Advance Directives Information Provided: No service: No Current occupational status: unemployed Meds Allergies Allergy/AdvReac Type Severity Reaction Status Date / Time No Known Allergies Allergy Verified 12/20/20 07:52 Active Medications: Current Medications Chlorhexidine Gluconate (Chlorhexidine Gluc Oral Rinse 15 Ml Mouthwash) 15 ml BUCCAL Q8H MIKKI Last Admin: 01/06/21 15:05 Dose: 15 ml Documented by: Fentanyl (Fentanyl Citrate/Pf 100 Mcg/2 Ml Vial) 100 mcg IVPUSH Q5M PRN; Protocol PRN Reason: agitation Last Admin: 01/06/21 15:25 Dose: 100 mcg Documented by: Heparin Sodium (Porcine) (Heparin Sodium,Porcine 5,000 Unit/Ml Vial) 5,000 unit SUBCUT Q12H [facility] Last Admin: 01/06/21 10:43 Dose: 5,000 unit Documented by: Piperacillin Sod/Tazobactam (Sod 4.5 gm/ Sodium Chloride) 100 mls @ 200 mls/hr IV Q8H [facility] Last Infusion: 01/06/21 14:20 Dose: Infused Documented by: Propofol (Diprivan) 1,000 mg in 100 mls @ 0 mls/hr IVCONT .Q0M [facility]; Protocol Last Admin: 01/06/21 13:46 Dose: 45 mcg/kg/min, 14.85 mls/hr Documented by: Vancomycin HCl 1,000 mg/ (Sodium Chloride) 270 mls @ 270 mls/hr IV Q24H [facility] Dextrose (D5w) 1,000 mls @ 80 mls/hr IVCONT .[id number] [facility] Last Infusion: 01/06/21 12:16 Dose: 150 mls/hr Documented by: Insulin Human Regular (Myxredlin) 100 unit in 100 mls @ 1 mls/hr IVCONT .Q24H [facility] Last Infusion: 01/06/21 15:59 Dose: 5 unit/hr, 5 mls/hr Documented by: Sodium Chloride () 1,000 mls @ 80 mls/hr IVCONT .[id number] [facility] Last Admin: 01/06/21 16:09 Dose: 80 mls/hr Documented by: Omeprazole (Omeprazole 20 Mg/10 Ml Susp.Recon) 40 mg G-TUBE DAILY@0630 [facility] Pharmacy Consult (Consult Rx Vancomycin Dosing) 1 each MISCELLANE DAILY PRN PRN Reason: Consult order Quetiapine Fumarate (Quetiapine Fumarate 50 Mg Tablet) 50 mg PO BID [facility] Last Admin: 01/06/21 15:06 Dose: 50 mg Documented by: Home Medications Medication Instructions Recorded Confirmed Last Taken Type insulin glargine 100 unit/mL (3 30 unit SUBCUT BEDTIME 09/24/20 12/19/20 Unknown History mL) subcutaneous pen (Lantus Solostar U-100 Insulin) insulin lispro 100 unit/mL See Protocol SUBCUT USEASDIRECTD 09/24/20 12/19/20 Unknown History subcutaneous solution (Humalog U-100 Insulin) quetiapine 100 mg tablet 0.5 - 1 tab PO BEDTIME PRN 12/19/20 01/06/21 Unknown History quetiapine 50 mg tablet 0.5 - 1 tab PO BID PRN 12/19/20 01/06/21 Unknown History Physical Exam Vital Signs: Vital Signs: Last Vital Signs Temp 99.7 F 01/06/21 16:00 Pulse 130 H 01/06/21 16:00 Resp 24 H 01/06/21 16:00 BP 101/39 L 01/06/21 16:00 Pulse Ox 97 01/06/21 16:00 Body Mass Index 18.6 Const: General: patient obtunded Nutritional Appearance: thin Orientation/consciousness: patient obtunded Limitations: altered mental status HENMT: Head images: 1. Area of possible fluctuance verses hematoma in the bridge of the nose extending to the left onto the medial face. There is an abrasion at the bridge of the nose. No purulence discharge noted from wound. Nose image: 1. Area of infection Resp: Other: Intubated, on ventilator Skin: Other: Facial wound is noted above Neuro: General: patient obtunded Extrem: General: No cyanosis Results Labs Result diagrams: 01/06/21 03:54 01/06/21 14:56 Labs: Abnormal lab results 01/05/21 01/05/21 01/05/21 Range/Units 23:48 23:48 23:48 WBC 21.8 H (4.8-10.8) X10*3/uL Hgb 11.5 L (12.0-16.0) g/dl Hct (37-47) % MCV 100.5 H (80-98) fL MCH 26.6 L (27.0-33.0) pg MCHC 26.4 L (31.0-35.0) g/dl RDW 18.5 H (11.0-16.0) % Plt Count 533 H (160-400) X10*3/uL MPV (9.4-12.3) fL Immature Gran % (Auto) 0.6 H (0.0-0.4) % Neut % (Auto) 90.8 H (45-73) % Lymph % (Auto) 5.5 L (20-40) % Abs Immat Gran (auto) 0.14 H (0.00-0.03) X10*3/uL Absolute Neuts (auto) 19.8 H (2.0-8.3) X10*3/uL VBG pH (7.32-7.43) VBG HCO3 (22-26) mmol/L Sodium (135-145) mmol/L Potassium (3.3-5.1) mmol/L Chloride 89 L (96-108) mmol/L Carbon Dioxide 5 L* D (22-29) mmol/L Anion Gap 46 H (12-20) BUN 36 H D (9-16) mg/dL Creatinine 2.83 H (0.5-1.4) mg/dL POC Glucose (60-115) mg/dL Random Glucose 1753 H* D (60-115) mg/dL Lactic Acid 4.7 H* (0.5-2.0) mmol/L Phosphorus (2.7-4.5) mg/dL Magnesium 3.3 H (1.6-2.6) mg/dL Alkaline Phosphatase 175 H D (39-117) U/L Urine Glucose (UA) (NEG) MG/DL Urine Opiates Screen (Not Detect) Urine Fentanyl Screen (Not Detect) Urine Cocaine Screen (Not Detect) Acetone, Qual Small H (Negative) 01/05/21 01/06/21 01/06/21 Range/Units 23:55 01:36 01:55 WBC (4.8-10.8) X10*3/uL Hgb (12.0-16.0) g/dl Hct (37-47) % MCV (80-98) fL MCH (27.0-33.0) pg MCHC (31.0-35.0) g/dl RDW (11.0-16.0) % Plt Count (160-400) X10*3/uL MPV (9.4-12.3) fL Immature Gran % (Auto) (0.0-0.4) % Neut % (Auto) (45-73) % Lymph % (Auto) (20-40) % Abs Immat Gran (auto) (0.00-0.03) X10*3/uL Absolute Neuts (auto) (2.0-8.3) X10*3/uL VBG pH 7.08 L* (7.32-7.43) VBG HCO3 5 L (22-26) mmol/L Sodium (135-145) mmol/L Potassium (3.3-5.1) mmol/L Chloride (96-108) mmol/L Carbon Dioxide (22-29) mmol/L Anion Gap (12-20) BUN (9-16) mg/dL Creatinine (0.5-1.4) mg/dL POC Glucose > 600 H* > 600 H* (60-115) mg/dL Random Glucose (60-115) mg/dL Lactic Acid (0.5-2.0) mmol/L Phosphorus (2.7-4.5) mg/dL Magnesium (1.6-2.6) mg/dL Alkaline Phosphatase (39-117) U/L Urine Glucose (UA) (NEG) MG/DL Urine Opiates Screen (Not Detect) Urine Fentanyl Screen (Not Detect) Urine Cocaine Screen (Not Detect) Acetone, Qual (Negative) 01/06/21 01/06/21 01/06/21 Range/Units 02:56 03:31 03:31 WBC (4.8-10.8) X10*3/uL Hgb (12.0-16.0) g/dl Hct (37-47) % MCV (80-98) fL MCH (27.0-33.0) pg MCHC (31.0-35.0) g/dl RDW (11.0-16.0) % Plt Count (160-400) X10*3/uL MPV (9.4-12.3) fL Immature Gran % (Auto) (0.0-0.4) % Neut % (Auto) (45-73) % Lymph % (Auto) (20-40) % Abs Immat Gran (auto) (0.00-0.03) X10*3/uL Absolute Neuts (auto) (2.0-8.3) X10*3/uL VBG pH (7.32-7.43) VBG HCO3 (22-26) mmol/L Sodium (135-145) mmol/L Potassium (3.3-5.1) mmol/L Chloride (96-108) mmol/L Carbon Dioxide (22-29) mmol/L Anion Gap (12-20) BUN (9-16) mg/dL Creatinine (0.5-1.4) mg/dL POC Glucose > 600 H* (60-115) mg/dL Random Glucose (60-115) mg/dL Lactic Acid (0.5-2.0) mmol/L Phosphorus (2.7-4.5) mg/dL Magnesium (1.6-2.6) mg/dL Alkaline Phosphatase (39-117) U/L Urine Glucose (UA) >=1000 H (NEG) MG/DL Urine Opiates Screen POSITIVE H (Not Detect) Urine Fentanyl Screen POSITIVE H (Not Detect) Urine Cocaine Screen POSITIVE H (Not Detect) Acetone, Qual (Negative) 01/06/21 01/06/21 01/06/21 Range/Units 03:54 03:54 04:03 WBC 24.0 H (4.8-10.8) X10*3/uL Hgb 11.5 L (12.0-16.0) g/dl Hct 36.7 L (37-47) % MCV (80-98) fL MCH 26.8 L (27.0-33.0) pg MCHC (31.0-35.0) g/dl RDW 17.2 H (11.0-16.0) % Plt Count 410 H (160-400) X10*3/uL MPV 9.2 L (9.4-12.3) fL Immature Gran % (Auto) 0.7 H (0.0-0.4) % Neut % (Auto) 85.7 H (45-73) % Lymph % (Auto) 10.0 L (20-40) % Abs Immat Gran (auto) 0.18 H (0.00-0.03) X10*3/uL Absolute Neuts (auto) 20.6 H (2.0-8.3) X10*3/uL VBG pH 7.21 L (7.32-7.43) VBG HCO3 13 L (22-26) mmol/L Sodium 152 H (135-145) mmol/L Potassium 2.8 L D (3.3-5.1) mmol/L Chloride 117 H D (96-108) mmol/L Carbon Dioxide 14 L (22-29) mmol/L Anion Gap 24 H (12-20) BUN 28 H (9-16) mg/dL Creatinine 1.83 H (0.5-1.4) mg/dL POC Glucose (60-115) mg/dL Random Glucose 708 H* D (60-115) mg/dL Lactic Acid (0.5-2.0) mmol/L Phosphorus 2.3 L (2.7-4.5) mg/dL Magnesium (1.6-2.6) mg/dL Alkaline Phosphatase (39-117) U/L Urine Glucose (UA) (NEG) MG/DL Urine Opiates Screen (Not Detect) Urine Fentanyl Screen (Not Detect) Urine Cocaine Screen (Not Detect) Acetone, Qual (Negative) 01/06/21 01/06/21 01/06/21 Range/Units 04:14 05:14 06:02 WBC (4.8-10.8) X10*3/uL Hgb (12.0-16.0) g/dl Hct (37-47) % MCV (80-98) fL MCH (27.0-33.0) pg MCHC (31.0-35.0) g/dl RDW (11.0-16.0) % Plt Count (160-400) X10*3/uL MPV (9.4-12.3) fL Immature Gran % (Auto) (0.0-0.4) % Neut % (Auto) (45-73) % Lymph % (Auto) (20-40) % Abs Immat Gran (auto) (0.00-0.03) X10*3/uL Absolute Neuts (auto) (2.0-8.3) X10*3/uL VBG pH (7.32-7.43) VBG HCO3 (22-26) mmol/L Sodium (135-145) mmol/L Potassium (3.3-5.1) mmol/L Chloride (96-108) mmol/L Carbon Dioxide (22-29) mmol/L Anion Gap (12-20) BUN (9-16) mg/dL Creatinine (0.5-1.4) mg/dL POC Glucose > 600 H* 533 H* 401 H* (60-115) mg/dL Random Glucose (60-115) mg/dL Lactic Acid (0.5-2.0) mmol/L Phosphorus (2.7-4.5) mg/dL Magnesium (1.6-2.6) mg/dL Alkaline Phosphatase (39-117) U/L Urine Glucose (UA) (NEG) MG/DL Urine Opiates Screen (Not Detect) Urine Fentanyl Screen (Not Detect) Urine Cocaine Screen (Not Detect) Acetone, Qual (Negative) 01/06/21 01/06/21 01/06/21 Range/Units 07:43 08:38 09:43 WBC (4.8-10.8) X10*3/uL Hgb (12.0-16.0) g/dl Hct (37-47) % MCV (80-98) fL MCH (27.0-33.0) pg MCHC (31.0-35.0) g/dl RDW (11.0-16.0) % Plt Count (160-400) X10*3/uL MPV (9.4-12.3) fL Immature Gran % (Auto) (0.0-0.4) % Neut % (Auto) (45-73) % Lymph % (Auto) (20-40) % Abs Immat Gran (auto) (0.00-0.03) X10*3/uL Absolute Neuts (auto) (2.0-8.3) X10*3/uL VBG pH (7.32-7.43) VBG HCO3 (22-26) mmol/L Sodium 158 H (135-145) mmol/L Potassium (3.3-5.1) mmol/L Chloride 125 H (96-108) mmol/L Carbon Dioxide (22-29) mmol/L Anion Gap (12-20) BUN 23 H (9-16) mg/dL Creatinine (0.5-1.4) mg/dL POC Glucose 314 H 149 H (60-115) mg/dL Random Glucose 187 H D (60-115) mg/dL Lactic Acid (0.5-2.0) mmol/L Phosphorus (2.7-4.5) mg/dL Magnesium (1.6-2.6) mg/dL Alkaline Phosphatase (39-117) U/L Urine Glucose (UA) (NEG) MG/DL Urine Opiates Screen (Not Detect) Urine Fentanyl Screen (Not Detect) Urine Cocaine Screen (Not Detect) Acetone, Qual (Negative) 01/06/21 01/06/21 01/06/21 Range/Units 11:00 12:48 14:50 WBC (4.8-10.8) X10*3/uL Hgb (12.0-16.0) g/dl Hct (37-47) % MCV (80-98) fL MCH (27.0-33.0) pg MCHC (31.0-35.0) g/dl RDW (11.0-16.0) % Plt Count (160-400) X10*3/uL MPV (9.4-12.3) fL Immature Gran % (Auto) (0.0-0.4) % Neut % (Auto) (45-73) % Lymph % (Auto) (20-40) % Abs Immat Gran (auto) (0.00-0.03) X10*3/uL Absolute Neuts (auto) (2.0-8.3) X10*3/uL VBG pH (7.32-7.43) VBG HCO3 (22-26) mmol/L Sodium (135-145) mmol/L Potassium (3.3-5.1) mmol/L Chloride (96-108) mmol/L Carbon Dioxide (22-29) mmol/L Anion Gap (12-20) BUN (9-16) mg/dL Creatinine (0.5-1.4) mg/dL POC Glucose 185 H 222 H 326 H (60-115) mg/dL Random Glucose (60-115) mg/dL Lactic Acid (0.5-2.0) mmol/L Phosphorus (2.7-4.5) mg/dL Magnesium (1.6-2.6) mg/dL Alkaline Phosphatase (39-117) U/L Urine Glucose (UA) (NEG) MG/DL Urine Opiates Screen (Not Detect) Urine Fentanyl Screen (Not Detect) Urine Cocaine Screen (Not Detect) Acetone, Qual (Negative) 01/06/21 Range/Units 14:56 WBC (4.8-10.8) X10*3/uL Hgb (12.0-16.0) g/dl Hct (37-47) % MCV (80-98) fL MCH (27.0-33.0) pg MCHC (31.0-35.0) g/dl RDW (11.0-16.0) % Plt Count (160-400) X10*3/uL MPV (9.4-12.3) fL Immature Gran % (Auto) (0.0-0.4) % Neut % (Auto) (45-73) % Lymph % (Auto) (20-40) % Abs Immat Gran (auto) (0.00-0.03) X10*3/uL Absolute Neuts (auto) (2.0-8.3) X10*3/uL VBG pH (7.32-7.43) VBG HCO3 (22-26) mmol/L Sodium 153 H (135-145) mmol/L Potassium 5.4 H (3.3-5.1) mmol/L Chloride 119 H (96-108) mmol/L Carbon Dioxide 17 L (22-29) mmol/L Anion Gap 22 H (12-20) BUN 26 H (9-16) mg/dL Creatinine 1.59 H (0.5-1.4) mg/dL POC Glucose (60-115) mg/dL Random Glucose 380 H* (60-115) mg/dL Lactic Acid (0.5-2.0) mmol/L Phosphorus (2.7-4.5) mg/dL Magnesium (1.6-2.6) mg/dL Alkaline Phosphatase (39-117) U/L Urine Glucose (UA) (NEG) MG/DL Urine Opiates Screen (Not Detect) Urine Fentanyl Screen (Not Detect) Urine Cocaine Screen (Not Detect) Acetone, Qual (Negative) Short CBC 01/05/21 01/06/21 Range/Units 23:48 03:54 WBC 21.8 H 24.0 H (4.8-10.8) X10*3/uL Hgb 11.5 L 11.5 L (12.0-16.0) g/dl Hct 43.5 36.7 L (37-47) % Plt Count 533 H 410 H (160-400) X10*3/uL BMP 01/05/21 01/06/21 01/06/21 23:48 03:54 08:38 Sodium 135 152 H 158 H Potassium 5.1 D 2.8 L D 4.6 D Chloride 89 L 117 H D 125 H Carbon Dioxide 5 L* D 14 L 24 BUN 36 H D 28 H 23 H Creatinine 2.83 H 1.83 H 1.32 Calcium 10.0 D 9.5 9.3 01/06/21 14:56 Sodium 153 H Potassium 5.4 H Chloride 119 H Carbon Dioxide 17 L BUN 26 H Creatinine 1.59 H Calcium 8.5 D Liver Function 01/05/21 Range/Units 23:48 Total Bilirubin 0.5 (0.0-1.0) mg/dL Direct Bilirubin 0.3 (0.0-0.5) mg/dL AST 11 D (5-31) U/L ALT 23 (0-31) U/L Alkaline Phosphatase 175 H D (39-117) U/L Albumin 4.1 (3.5-5.0) g/dL Urine 01/06/21 01/06/21 Range/Units 03:31 03:31 Urine Color STRAW Urine Appearance CLEAR Urine pH 5.5 (5.0-8.0) Ur Specific Nettie 1.010 (1.005-1.025) Urine Protein NEG (NEG-TRACE) MG/DL Urine Glucose (UA) >=1000 H (NEG) MG/DL Urine Test NEGATIVE (NEGATIVE) All other labs normal. Assessment and Plan (1) Abscess of face: Status: Acute 25-year-old female patient with question of left nasal abscess which appea rs to be increasing over the day following a nasal trauma. There is an open wound in the mid bridge of the nose but no purulence drainage can be expressed. A needle aspiration was performed which produce some bloody fluid but no purulence. This was sent for wound culture. Recommend further evaluation with a facial CT to evaluate for facial fractures. Procedures Date of Service Date of Service: 01/06/21 Abscess I/D Consent for Procedure: Emergent-no informed consent obtained Site: face (Nose) Side (if applicable): left Sedation/analgesia: other (Patient previously sedated and intubated) Technique: needle aspiration Amount of fluid (mL): 1 Irrigation: No Packing used?: none
[2021-01-06 17:01] LABS: Glucose, Whole Blood 299 mg/dL (60-115)
--- NOTE | 2021-01-06 17:08 | ECG_ITS ---
Test Reason : ST CHANGES Blood Pressure : / mmHG Vent. Rate : 109 BPM Atrial Rate : 109 BPM P-R Int : 134 ms QRS Dur : 066 ms QT Int : 310 ms P-R-T Axes : 064 076 068 degrees QTc Int : 417 ms Sinus tachycardia Otherwise normal ECG When compared with ECG of 06-JAN-2021 08:35, No significant change was found Referred By: Italo Li Electronically Signed By:RUPESH CISNEROS
--- NOTE | 2021-01-06 17:27 | PC.NURSE ---
ST elevation noted in lead 3. Notified DR Seals. EKG ordered. Copy sent to Dr seals via [facility] text..
[2021-01-06 19:13] LABS: Glucose, Whole Blood 165 mg/dL (60-115)
--- NOTE | 2021-01-06 20:19 | ECG_ITS ---
Test Reason : RHYTHM CHANGE Blood Pressure : / mmHG Vent. Rate : 125 BPM Atrial Rate : 125 BPM P-R Int : 104 ms QRS Dur : 066 ms QT Int : 408 ms P-R-T Axes : 000 080 069 degrees QTc Int : 588 ms Sinus tachycardia with short CA Nonspecific T wave abnormality Abnormal ECG When compared with ECG of 06-JAN-2021 17:11, CA interval has decreased Nonspecific T wave abnormality now evident in Inferior leads Nonspecific T wave abnormality now evident in Lateral leads Referred By: Italo Li Electronically Signed By:RUPESH CISNEROS
[2021-01-06 20:55] LABS: Glucose, Whole Blood 113 mg/dL (60-115)
[2021-01-06 20:56] LABS: Anion Gap 16 (12-20); Blood Urea Nitrogen 23 mg/dL (9-16); Calcium 8.6 mg/dL (8.4-10.2); Carbon Dioxide 20 mmol/L (22-29); Chloride 122 mmol/L (96-108); Creatinine Clr Calc Pharmacy 41.1; Estimated Glomerular Filt Rate 43; Glucose Random 121 mg/dL (60-115); Magnesium 1.8 mg/dL (1.6-2.6); Phosphorus 2.6 mg/dL (2.7-4.5); Potassium 3.6 mmol/L (3.3-5.1); Sodium 154 mmol/L (135-145)
[2021-01-06 21:04] LABS: Troponin-I High Sensitivity 8.9 ng/L (<3.5-17.0)
--- NOTE | 2021-01-06 21:30 | PC.NURSE ---
P- Patient noted to have vertical nystagmus. I- PA notified. STAT head CT obtained. E- Results pending.
[2021-01-06 21:31] LABS: Glucose, Whole Blood 84 mg/dL (60-115)
[2021-01-06 22:22] LABS: Glucose, Whole Blood 91 mg/dL (60-115)
[2021-01-06 23:50] LABS: Glucose, Whole Blood 131 mg/dL (60-115)
[2021-01-06 23:50] LABS: Glucose, Whole Blood 119 mg/dL (60-115)
[2021-01-07] VITALS (29 sets, daily range): BP systolic 109–128; BP diastolic 55–89; PULSE 8–120; RESP 19–40; TEMP 36.3–38; O2SAT 96–100; BMI 17.4
[2021-01-07 00:38] LABS: Glucose, Whole Blood 145 mg/dL (60-115)
[2021-01-07] MEDS: propofoL 1,000 MG/100 ML VIAL 14.85 MG IVCONT ×3 (00:42→14:49)
[2021-01-07 01:50] LABS: Glucose, Whole Blood 165 mg/dL (60-115)
[2021-01-07] MEDS: Sodium,Potassium Phosphates POWD.PACK 2 PACKET PO (01:58)
--- NOTE | 2021-01-07 02:03 | PC.NURSE ---
Patient had 2 large bags of personal belongings in room which were given to security and placed in [facility].
[2021-01-07 02:52] LABS: Glucose, Whole Blood 149 mg/dL (60-115)
[2021-01-07] MEDS: fentaNYL citrate/PF 100 MCG/2 ML VIAL IVPUSH ×14 (03:19→22:51)
[2021-01-07] MEDS: vancomycin HCL 1,000 MG in 0.9 % Sodium Chloride 250 ML 270 MG IV (03:44)
[2021-01-07] MEDS: Sodium Chloride 0.45 % 1,000 ML 80 ML IVCONT ×3 (03:44→23:43)
[2021-01-07 04:07] LABS: Glucose, Whole Blood 126 mg/dL (60-115)
[2021-01-07] MEDS: Chlorhexidine Gluc Oral Rinse 15 ML MOUTHWASH BUCCAL ×3 (05:03→22:23)
[2021-01-07] MEDS: Piperacillin Sodium/Tazobactam 4.5 GM in 0.9 % Sodium Chloride 100 ML IV ×4 (05:03→22:53)
[2021-01-07 05:17] LABS: Glucose, Whole Blood 118 mg/dL (60-115)
[2021-01-07 05:17] LABS: VBG HCO3 25 mmol/L (22-26); VBG pCO2 34 mmHg; VBG pH 7.47 (7.32-7.43); VBG pO2 49 mmHg
[2021-01-07 05:34] LABS: MANUAL DIFF FLAG NO
[2021-01-07 05:41] LABS: Basophils Percent Auto 0.2 % (0-2); Eosinophils Percent Auto 0.1 % (0-4); Hematocrit 29.4 % (37-47); Hemoglobin 9.3 g/dl (12.0-16.0); Imm Gran Abs Auto 0.06 X10*3/uL (0.00-0.03); Imm Gran Pct Auto 0.4 % (0.0-0.4); Lymphocytes Absolute Auto 3.5 X10*3/uL (1.2-4.9); Lymphocytes Percent Auto 22.1 % (20-40); Mean Corpuscular HGB Conc 31.6 g/dl (31.0-35.0); Mean Corpuscular Hemoglobin 26.1 pg (27.0-33.0); Mean Corpuscular Volume 82.4 fL (80-98); Mean Platelet Volume 9.2 fL (9.4-12.3); Monocytes Absolute Auto 0.7 X10*3/uL (0.1-1.2); Monocytes Percent Auto 4.4 % (2-11); Neutrophils Absolute Auto 11.5 X10*3/uL (2.0-8.3); Neutrophils Percent Auto 72.8 % (45-73); Platelet Count 229 X10*3/uL (160-400); Red Blood Count 3.57 X10*6/uL (4.20-5.50); Red Cell Distribution Width 17.4 % (11.0-16.0); White Blood Count 15.8 X10*3/uL (4.8-10.8)
[2021-01-07 06:08] LABS: Glucose, Whole Blood 120 mg/dL (60-115)
[2021-01-07 06:16] LABS: Alanine Aminotransferase 15 U/L (0-31); Alkaline Phosphatase 108 U/L (39-117); Anion Gap 15 (12-20); Aspartate Amino Transferase 15 U/L (5-31); Bilirubin Total 0.2 mg/dL (0.0-1.0); Blood Urea Nitrogen 18 mg/dL (9-16); Calcium 8.2 mg/dL (8.4-10.2); Carbon Dioxide 22 mmol/L (22-29); Chloride 118 mmol/L (96-108); Creatinine Clr Calc Pharmacy 47.5; Estimated Glomerular Filt Rate 55; Glucose Random 116 mg/dL (60-115); Magnesium 1.6 mg/dL (1.6-2.6); Phosphorus 3.1 mg/dL (2.7-4.5); Potassium 3.6 mmol/L (3.3-5.1); Sodium 151 mmol/L (135-145); Total Protein 5.3 g/dL (6.5-8.0)
[2021-01-07 06:40] LABS: Venous Blood Gas Refer to POC result
[2021-01-07 07:11] LABS: Glucose, Whole Blood 122 mg/dL (60-115)
[2021-01-07] MEDS: QUEtiapine Fumarate 50 MG TABLET PO ×2 (07:33→10:08)
[2021-01-07 07:36] LABS: VBG Base Excess 0.8 mmol/L; VBG HCO3 23 mmol/L (22-26); VBG pCO2 31 mmHg; VBG pH 7.48 (7.32-7.43); VBG pO2 46 mmHg
[2021-01-07 07:46] LABS: Venous Blood Gas Refer to POC result
[2021-01-07 08:09] LABS: Glucose, Whole Blood 118 mg/dL (60-115)
[2021-01-07] MEDS: Heparin Sodium,Porcine 5,000 UNIT/ML VIAL 5000 UNIT SUBCUT ×2 (08:48→22:21)
[2021-01-07] MEDS: Dextrose 5 % 1,000 ML 80 ML IVCONT ×2 (08:49→23:23)
--- NOTE | 2021-01-07 10:06 | MHC.CLN ---
F/U PT TO START TF TODAY; REMAINS INTUBATED DISCUSSED WITH MD AT ROUNDS RECOMMEND PROMOTE AT MAX GOAL RATE 40ML/HR WITH 240CC FREE WATER FLUSHES Q SHIFT TO PROVIDE 960KCALS (1352KCALS WITH SEDATION; 30KCALS/KG), 60G PROTEIN (1.3G/KG), 1525CC TOTAL WATER FROM FORMULA AND FLUSHES (34CC/KG) START TF AT 20ML/HR AND INCREASE BY 10ML Q 4 HRS UNTIL MAX GOAL IS ACHIEVED PT AT RISK FOR RE-FEEDING SYNDROME-MONITOR MG, PHOS AND K+ CLOSELY MONITOR TOLERANCE, RESIDUALS AND LYTES
[2021-01-07 10:18] LABS: Glucose, Whole Blood 223 mg/dL (60-115)
[2021-01-07 10:21] LABS: Anion Gap 16 (12-20); Blood Urea Nitrogen 16 mg/dL (9-16); Calcium 7.9 mg/dL (8.4-10.2); Carbon Dioxide 21 mmol/L (22-29); Chloride 116 mmol/L (96-108); Creatinine Clr Calc Pharmacy 52.7; Estimated Glomerular Filt Rate > 60; Glucose Random 225 mg/dL (60-115); Potassium 3.8 mmol/L (3.3-5.1); Sodium 149 mmol/L (135-145)
[2021-01-07] MEDS: Magnesium Sulfate/H2O 2 GM/50 ML PIGGYBACK IV (10:43)
[2021-01-07] MEDS: Potassium Chloride Packet 20 MEQ PACKET 40 MEQ G-TUBE (10:44)
--- NOTE | 2021-01-07 11:23 | P.PNCC_ITS ---
Subjective Subjective Date of Service: 01/07/21 Interval History: Ms. Morgan was admitted to ICU early yesterday morning with DKA. The patient is a 25-year-old female with a past medical history of diabetes, anxiety, IV drug use, and Staph aureus bacteremia and endocarditis. ?She?s had mult visits to this hospital, most commonly leaving AMA.? At her last admission two and a half weeks ago on December 19, blood cultures drawn in the ED came back positive at 13 hours for MRSA.? She left the hospital AMA before repeat blood cultures or an echocardiogram could be done.? No antibiotics were prescribed for her on the outside, and in fact she told the hospitalist that if a prescription were sent to a pharmacy, she would not pick it up. She previously also had one out of two blood cultures positive for MRSA on 09/23/20, with subsequent negative BCs.? She had TTEs on 09/24/20 and 09/25/20, neither of which showed any vegetation.? But an echo on 08/18/20 showed a ?Large, mass like structure in the right atrium; measuring 3.5 x 2cm; could be vegetation or thrombus; attachment point is not clear, possibly lateral part of tricuspid annulus; in some views, there is protrusion into the tricuspid plane.?? Her most recent BC prior to that echo was on 08/05 and 08/06/20, both of which were negative. HISTORY OF PRESENT ILLNESS:? The patient was BIBA to the ED late on Jan 05 after bystanders found her on the side of the road asking for help.? EMS reported POC was out of range high. In the emergency room, the patient was lethargic, barely opening eyes to painful stimuli.? She was? afebrile, tachycardic to 130s, normotensive, respiratory rate 17, sat?ing? 100% on room air.? Labs in the ED were notable for WBC 21, BUN/creatinine 36/2.8 (baseline about 16/0.7), sodium 135, potassium 5.1, bicarb 5, random glucose 1753, albumin 4.1.? Venous gas showed 7.08/18/-22. She was given 3 L of normal saline, Zosyn, vancomycin, 10 units of IVpush insulin, 20 units of subcut lispro, and Ativan 1 mg.? She was transferred to ICU for further care. In ICU, the patient was acutely ill and minimally responsive.? She required emergent intubation for airway protection.? A central line was placed for IV access.? She was treated with an insulin drip and LR in the usual fashion.? Vanco and Zosyn were continued. Chemistries the following morning were notable for iatrogenic hypernatremia.? BUN/creatinine were almost back to baseline, acidosis was corrected, glucose down to 187.? The insulin drip was stopped and the IV fluids were changed to D5W.? Her sugars went back up and the acidosis recurred.? Half-normal saline was added and the insulin drip was restarted. On exam this morning, she is well sedated on propofol at 50 mcg, with prn fentanyl boluses.? She is also on insulin at 2 units/hour, D5W at 80 cc/hour and half normal saline at 80 cc/hour. ?Heart rate is 107, sinus rhythm, blood pressure 125/67.? On pressure support ventilation 5/21%/+5, respiratory rate is 26, Vt 320 cc, Ve 8.6 L, PIP 11 cm, ETCO2 32 mm, Sat 98%.? CVBG this morning showed 7.47/34/+2.? T-max is 100.2 degrees.? No jugular venous distention with the head of the bed at 20-30 degrees.? Chest clear to auscultation, with a normal expiratory phase.? Abdomen is benign, she has no peripheral edema.? She is grossly cachectic and weighs 42 kg.? The patient's nose still has a 1.5 cm area of erythema on the left of the bridge.? Dr. Mcclelland put a needle in it yesterday but there was no pus.? Culture of the bloody sample shows 2+ polys with 1+ Gram-positive cocci, that is growing 2+ staph aureus, sensitivity pending.? This morning the area feels spongy, but not clearly fluctulant.? She also has a very malodorous vaginal discharge. LABORATORY DATA::? As below.? Notably, white count is way down.? Hemoglobin and platelet count are also down after volume resuscitation. ?Sodium is down to 149, BUN/creatinine down to 16/1.1, bicarb is 21, glucose 225, potassium 3.8. Echocardiogram yesterday done at the bedside by the tech.? Findings (interpretation by Dr. Niño): Normal LV and RV chamber size and function.? Normal sized inferior vena cava with normal inspiratory collapse. ?No clear vegetation seen on this study. IMPRESSION: 1. IV drug abuse. 2. Severe protein calorie malnutrition.? Started Promote. 3. Terrible dentition. 4. DKA.? Restarted insulin drip.? Continue close chemistry f/u. 5. Persistent hypovolemia.? Continuing vol resuscitation. 6. Acute kidney injury.? 2? hypovolemia.? Doubt that she?s septic. 7. Hypernatremia (iatrogenic).? Using D5W + 1/2 NS for vol resuscitation. 8. ID:? In view of leukocytosis, we?re giving her broad spectrum abx (vanco and Zosyn) pending cultures.? Urine is clean and she doesn?t have pneumonia.? Given her bacteremia on 12/19/20, we?ll assume that she has endocarditis until proven otherwise by negative blood cultures.? I?ll wait 48 hrs to extubate her in case the BCs turn positive and she needs a GEETHA. 9. ? Nose abscess.? Nothing drainable, so it?s just a cellulitis.? Current abx should be adequate. 10. Vaginal infection/? STD.? Cultured for both yeast and CTNG.? Wrote her for ceftriaxone 250 mg IM plus Zithromax 1 g single dose for gonococcal and chlamydia coverage.? Also covering Trichomonas with Flagyl 500 mg bid x 7 days, and cover yeast with fluconazole 150 mg once today. Critical care time:? 60 min. Critical Care Time (minutes): 60 Physical Exam Vital Signs: Vital Signs: Last Vital Signs Temp 100.2 F 01/07/21 11:00 Pulse 109 H 01/07/21 11:00 Resp 27 H 01/07/21 11:00 BP 125/71 01/07/21 11:00 Pulse Ox 97 01/07/21 11:00 Body Mass Index 17.4 Objective Data Labs CBC & Chem 7: 01/07/21 05:10 01/07/21 09:53 Labs: Laboratory Results - last 24 hr 01/06/21 01/06/21 01/06/21 12:48 14:50 14:56 WBC RBC Hgb Hct MCV MCH MCHC RDW Plt Count MPV Immature Gran % (Auto) Neut % (Auto) Lymph % (Auto) [place] % (Auto) Eos % (Auto) Baso % (Auto) Lymph # (Auto) [place] # (Auto) Eos # (Auto) Baso # (Auto) Abs Immat Gran (auto) Absolute Neuts (auto) Absolute Nucleated RBC Nucleated RBC % (auto) VBG pH VBG pCO2 VBG pO2 VBG HCO3 VBG O2 Saturation VBG Base Excess Sodium 153 H Potassium 5.4 H Chloride 119 H Carbon Dioxide 17 L Anion Gap 22 H BUN 26 H Creatinine 1.59 H Estim Creat Clear Calc 38.8 Estimated GFR 40 POC Glucose 222 H 326 H Random Glucose 380 H* Calcium 8.5 D Phosphorus 4.0 Magnesium 1.8 Total Bilirubin AST ALT Alkaline Phosphatase Troponin I High Sens Total Protein Albumin 01/06/21 01/06/21 01/06/21 16:58 19:02 20:07 WBC RBC Hgb Hct MCV MCH MCHC RDW Plt Count MPV Immature Gran % (Auto) Neut % (Auto) Lymph % (Auto) [place] % (Auto) Eos % (Auto) Baso % (Auto) Lymph # (Auto) [place] # (Auto) Eos # (Auto) Baso # (Auto) Abs Immat Gran (auto) Absolute Neuts (auto) Absolute Nucleated RBC Nucleated RBC % (auto) VBG pH VBG pCO2 VBG pO2 VBG HCO3 VBG O2 Saturation VBG Base Excess Sodium Potassium Chloride Carbon Dioxide Anion Gap BUN Creatinine Estim Creat Clear Calc Estimated GFR POC Glucose 299 H 165 H 113 Random Glucose Calcium Phosphorus Magnesium Total Bilirubin AST ALT Alkaline Phosphatase Troponin I High Sens Total Protein Albumin 01/06/21 01/06/21 01/06/21 20:10 20:10 20:34 WBC RBC Hgb Hct MCV MCH MCHC RDW Plt Count MPV Immature Gran % (Auto) Neut % (Auto) Lymph % (Auto) [place] % (Auto) Eos % (Auto) Baso % (Auto) Lymph # (Auto) [place] # (Auto) Eos # (Auto) Baso # (Auto) Abs Immat Gran (auto) Absolute Neuts (auto) Absolute Nucleated RBC Nucleated RBC % (auto) VBG pH 7.48 H VBG pCO2 31 VBG pO2 46 VBG HCO3 23 VBG O2 Saturation 77.0 VBG Base Excess 0.8 Sodium 154 H Potassium 3.6 D Chloride 122 H Carbon Dioxide 20 L Anion Gap 16 BUN 23 H Creatinine 1.50 H Estim Creat Clear Calc 41.1 Estimated GFR 43 POC Glucose Random Glucose 121 H Calcium 8.6 Phosphorus 2.6 L Magnesium 1.8 Total Bilirubin AST ALT Alkaline Phosphatase Troponin I High Sens 8.9 D Total Protein Albumin 01/06/21 01/06/21 01/06/21 21:23 21:59 23:12 WBC RBC Hgb Hct MCV MCH MCHC RDW Plt Count MPV Immature Gran % (Auto) Neut % (Auto) Lymph % (Auto) [place] % (Auto) Eos % (Auto) Baso % (Auto) Lymph # (Auto) [place] # (Auto) Eos # (Auto) Baso # (Auto) Abs Immat Gran (auto) Absolute Neuts (auto) Absolute Nucleated RBC Nucleated RBC % (auto) VBG pH VBG pCO2 VBG pO2 VBG HCO3 VBG O2 Saturation VBG Base Excess Sodium Potassium Chloride Carbon Dioxide Anion Gap BUN Creatinine Estim Creat Clear Calc Estimated GFR POC Glucose 84 91 119 H Random Glucose Calcium Phosphorus Magnesium Total Bilirubin AST ALT Alkaline Phosphatase Troponin I High Sens Total Protein Albumin 01/06/21 01/07/21 01/07/21 23:46 00:33 01:47 WBC RBC Hgb Hct MCV MCH MCHC RDW Plt Count MPV Immature Gran % (Auto) Neut % (Auto) Lymph % (Auto) [place] % (Auto) Eos % (Auto) Baso % (Auto) Lymph # (Auto) [place] # (Auto) Eos # (Auto) Baso # (Auto) Abs Immat Gran (auto) Absolute Neuts (auto) Absolute Nucleated RBC Nucleated RBC % (auto) VBG pH VBG pCO2 VBG pO2 VBG HCO3 VBG O2 Saturation VBG Base Excess Sodium Potassium Chloride Carbon Dioxide Anion Gap BUN Creatinine Estim Creat Clear Calc Estimated GFR POC Glucose 131 H 145 H 165 H Random Glucose Calcium Phosphorus Magnesium Total Bilirubin AST ALT Alkaline Phosphatase Troponin I High Sens Total Protein Albumin 01/07/21 01/07/21 01/07/21 02:48 04:01 05:10 WBC 15.8 H RBC 3.57 L Hgb 9.3 L Hct 29.4 L MCV 82.4 MCH 26.1 L MCHC 31.6 RDW 17.4 H Plt Count 229 D MPV 9.2 L Immature Gran % (Auto) 0.4 Neut % (Auto) 72.8 Lymph % (Auto) 22.1 [place] % (Auto) 4.4 Eos % (Auto) 0.1 Baso % (Auto) 0.2 Lymph # (Auto) 3.5 [place] # (Auto) 0.7 Eos # (Auto) 0.0 Baso # (Auto) 0.0 Abs Immat Gran (auto) 0.06 H Absolute Neuts (auto) 11.5 H Absolute Nucleated RBC 0.000 Nucleated RBC % (auto) 0.0 VBG pH VBG pCO2 VBG pO2 VBG HCO3 VBG O2 Saturation VBG Base Excess Sodium Potassium Chloride Carbon Dioxide Anion Gap BUN Creatinine Estim Creat Clear Calc Estimated GFR POC Glucose 149 H 126 H Random Glucose Calcium Phosphorus Magnesium Total Bilirubin AST ALT Alkaline Phosphatase Troponin I High Sens Total Protein Albumin 01/07/21 01/07/21 01/07/21 05:10 05:12 05:13 WBC RBC Hgb Hct MCV MCH MCHC RDW Plt Count MPV Immature Gran % (Auto) Neut % (Auto) Lymph % (Auto) [place] % (Auto) Eos % (Auto) Baso % (Auto) Lymph # (Auto) [place] # (Auto) Eos # (Auto) Baso # (Auto) Abs Immat Gran (auto) Absolute Neuts (auto) Absolute Nucleated RBC Nucleated RBC % (auto) VBG pH 7.47 H VBG pCO2 34 VBG pO2 49 VBG HCO3 25 VBG O2 Saturation 80.0 VBG Base Excess 2.0 Sodium 151 H Potassium 3.6 Chloride 118 H Carbon Dioxide 22 Anion Gap 15 BUN 18 H Creatinine 1.22 Estim Creat Clear Calc 47.5 Estimated GFR 55 POC Glucose 118 H Random Glucose 116 H Calcium 8.2 L Phosphorus 3.1 Magnesium 1.6 Total Bilirubin 0.2 AST 15 ALT 15 Alkaline Phosphatase 108 D Troponin I High Sens Total Protein 5.3 L D Albumin 3.0 L D 01/07/21 01/07/21 01/07/21 06:03 07:04 08:07 WBC RBC Hgb Hct MCV MCH MCHC RDW Plt Count MPV Immature Gran % (Auto) Neut % (Auto) Lymph % (Auto) [place] % (Auto) Eos % (Auto) Baso % (Auto) Lymph # (Auto) [place] # (Auto) Eos # (Auto) Baso # (Auto) Abs Immat Gran (auto) Absolute Neuts (auto) Absolute Nucleated RBC Nucleated RBC % (auto) VBG pH VBG pCO2 VBG pO2 VBG HCO3 VBG O2 Saturation VBG Base Excess Sodium Potassium Chloride Carbon Dioxide Anion Gap BUN Creatinine Estim Creat Clear Calc Estimated GFR POC Glucose 120 H 122 H 118 H Random Glucose Calcium Phosphorus Magnesium Total Bilirubin AST ALT Alkaline Phosphatase Troponin I High Sens Total Protein Albumin 01/07/21 01/07/21 09:53 10:15 WBC RBC Hgb Hct MCV MCH MCHC RDW Plt Count MPV Immature Gran % (Auto) Neut % (Auto) Lymph % (Auto) [place] % (Auto) Eos % (Auto) Baso % (Auto) Lymph # (Auto) [place] # (Auto) Eos # (Auto) Baso # (Auto) Abs Immat Gran (auto) Absolute Neuts (auto) Absolute Nucleated RBC Nucleated RBC % (auto) VBG pH VBG pCO2 VBG pO2 VBG HCO3 VBG O2 Saturation VBG Base Excess Sodium 149 H Potassium 3.8 Chloride 116 H Carbon Dioxide 21 L Anion Gap 16 BUN 16 Creatinine 1.10 Estim Creat Clear Calc 52.7 Estimated GFR > 60 POC Glucose 223 H Random Glucose 225 H Calcium 7.9 L Phosphorus Magnesium Total Bilirubin AST ALT Alkaline Phosphatase Troponin I High Sens Total Protein Albumin Microbiology Microbiology Results: Microbiology 01/06/21 15:00 Nose Gram Stain - Final 01/06/21 15:00 Nose Routine Culture - Preliminary Staphylococcus aureus 01/05/21 23:52 Blood - Venous Blood Culture - Preliminary No growth after 24 hours. 01/05/21 23:48 Blood - Venous Blood Culture - Preliminary No growth after 24 hours. Quality Stroke Does the patient have a stroke diagnosis?: No VTE Prior VTE?: No VTE Risk Level:: Medical - low VTE Device Contraindication: Treatment Not Indicated VTE Drug Contraindication: N/A - Med Ordered Critical Care Time Critical Care Time (minutes): 60
[2021-01-07] MEDS: Fluconazole 150 MG TABLET PO (11:49)
[2021-01-07] MEDS: Azithromycin 500 MG TABLET 1000 MG G-TUBE (11:49)
[2021-01-07] MEDS: cefTRIAXone sodium 500 MG VIAL IM (11:57)
[2021-01-07] MEDS: metroNIDAZOLE 500 MG TABLET G-TUBE ×2 (12:05→20:33)
[2021-01-07 12:10] LABS: Procalcitonin 0.32 ng/mL
[2021-01-07 13:05] LABS: Glucose, Whole Blood 147 mg/dL (60-115)
[2021-01-07 13:54] LABS: CT PCR NOT DETECTED (Not Detect.); NG PCR NOT DETECTED (Not Detect.)
--- NOTE | 2021-01-07 14:13 | PM.PNGS ---
Subjective Subjective Date of Service: 01/07/21 Interval history: Patient remains intubated and sedated Physical Exam Vital Signs: Vital Signs: Last Vital Signs Temp 99.5 F 01/07/21 13:00 Pulse 112 H 01/07/21 13:00 Resp 24 H 01/07/21 13:00 BP 118/56 L 01/07/21 13:00 Pulse Ox 96 01/07/21 13:00 Body Mass Index 17.4 HENMT: Nose image: 1. Area of erythema and swelling seems improved. No fluctuance is identified. Ulceration at the bridge midline is unchanged. Resp: Other: On the vent, in no distress Skin: Other: Warm and dry Procedures Date of Service Date of Service: 01/07/21 Progress Note: A&P Assessment and plan (1) Abscess of face: Status: Acute Assessment and Plan: Overall facial wound appears improved with no evidence of abscess at this time. I reviewed the head CT which did not include the entire nose unfortunately. No fracture seen in the views available. Facial CT with reconstructions would be helpful. Will continue observation. Fall Risk Details Current Medications: Current Medications Chlorhexidine Gluconate (Chlorhexidine Gluc Oral Rinse 15 Ml Mouthwash) 15 ml BUCCAL Q8H MIKKI Last Admin: 01/07/21 05:03 Dose: 15 ml Documented by: Fentanyl (Fentanyl Citrate/Pf 100 Mcg/2 Ml Vial) 100 mcg IVPUSH Q5M PRN; Protocol PRN Reason: agitation Last Admin: 01/07/21 13:39 Dose: 100 mcg Documented by: Heparin Sodium (Porcine) (Heparin Sodium,Porcine 5,000 Unit/Ml Vial) 5,000 unit SUBCUT Q12H MIKKI Last Admin: 01/07/21 08:48 Dose: 5,000 unit Documented by: Propofol (Diprivan) 1,000 mg in 100 mls @ 0 mls/hr IVCONT .Q0M MIKKI; Protocol Last Admin: 01/07/21 06:29 Dose: 45 mcg/kg/min, 14.85 mls/hr Documented by: Vancomycin HCl 1,000 mg/ (Sodium Chloride) 270 mls @ 270 mls/hr IV Q24H [facility] Last Infusion: 01/07/21 04:52 Dose: Infused Documented by: Dextrose (D5w) 1,000 mls @ 80 mls/hr IVCONT .[id number] [facility] Last Admin: 01/07/21 08:49 Dose: 80 mls/hr Documented by: Insulin Human Regular (Myxredlin) 100 unit in 100 mls @ 1 mls/hr IVCONT .Q24H [facility] Last Infusion: 01/07/21 13:05 Dose: 0 unit/hr, 0 mls/hr Documented by: Sodium Chloride () 1,000 mls @ 80 mls/hr IVCONT .[id number] [facility] Last Admin: 01/07/21 03:44 Dose: 80 mls/hr Documented by: Piperacillin Sod/Tazobactam (Sod 4.5 gm/ Sodium Chloride) 100 mls @ 200 mls/hr IV Q6H [facility] Last Infusion: 01/07/21 12:20 Dose: Infused Documented by: Metronidazole (Metronidazole 500 Mg Tablet) 500 mg G-TUBE BID [facility] Last Admin: 01/07/21 12:05 Dose: 500 mg Documented by: Omeprazole (Omeprazole 20 Mg/10 Ml Susp.Recon) 40 mg G-TUBE DAILY@0630 [facility] Last Admin: 01/07/21 05:03 Dose: 40 mg Documented by: Pharmacy Consult (Consult Rx Vancomycin Dosing) 1 each MISCELLANE DAILY PRN PRN Reason: Consult order Quetiapine Fumarate (Quetiapine Fumarate 100 Mg Tablet) 100 mg PO BID [facility] Time Spent With Patient Time: Total time spent is greater than 50% in coordination of care (as documented) at patient's floor/unit and/or counseling patient: Time with patient: 15 - 24 minutes Quality Stroke Does the patient have a stroke diagnosis?: No VTE Prior VTE?: No VTE Risk Level:: Medical - low VTE Device Contraindication: Treatment Not Indicated VTE Drug Contraindication: N/A - Med Ordered
--- NOTE | 2021-01-07 15:20 | MHC.CM.PN ---
Pt remains intubated in ICU: cultures pending: pt may require a GEETHA and other testing. D/C plan remains ongoing based on pt's clinical progress and compliance with staying and not signing out AMA. CM to follow
[2021-01-07 15:23] LABS: Anion Gap 14 (12-20); Blood Urea Nitrogen 13 mg/dL (9-16); Calcium 7.8 mg/dL (8.4-10.2); Carbon Dioxide 22 mmol/L (22-29); Chloride 117 mmol/L (96-108); Estimated Glomerular Filt Rate > 60; Glucose Random 261 mg/dL (60-115); Magnesium 2.3 mg/dL (1.6-2.6); Phosphorus 3.2 mg/dL (2.7-4.5); Potassium 4.7 mmol/L (3.3-5.1); Sodium 148 mmol/L (135-145)
[2021-01-07 16:32] LABS: Glucose, Whole Blood 282 mg/dL (60-115)
--- NOTE | 2021-01-07 16:35 | MHC.CARE ---
CARE Team issues a sect 12a and places in pt's chart. Pt is currently not able to care for herself and is exhibiting reckless behavior, neglecting her diabetes with awareness that this can negatively impact her health. Pt is very well known to [facility]. Pt should be assessed by CARE Team to ensure that pt is not suicidal and to assess pt's mental status. CARE Team will make treatment recommendations once pt is medically cleared. CARE Team is available for supports/ recourses as needed. CARE team has discussed this plan with Xiomara Louise, [employer], Dr. Mancini and pt's RN in the ICU.
[2021-01-07 18:08] LABS: Glucose, Whole Blood 218 mg/dL (60-115)
--- NOTE | 2021-01-07 18:33 | PC.NURSE ---
Remained intubated today. Electrolyte replacement, ABTx addition, Seroquel increase and tube feed initiation today. Vaginal swabs obtained to assess for STDs d/t greenish yellow, foul discharge. Insulin on and off today. GAP closed. Not following DKA protocol any longer. Glucose POCs q2hrs per Dr. Mancini. D5W and 0.45%saline running at 60ml each. Serum chemistries being followed. Low grade temps, SR/ST. Vent on PSV settings 5/5 at 21%. SpO2 97-99%, minVol 7-9. Skin issues without changes. Multiple scabbed areas throughout, Coccyx with border foam dressing C/D/I.
[2021-01-07 20:20] LABS: Glucose, Whole Blood 198 mg/dL (60-115)
[2021-01-07] MEDS: propofoL 1,000 MG/100 ML VIAL 16.5 MG IVCONT ×2 (20:33→23:58)
[2021-01-07] MEDS: QUEtiapine Fumarate 100 MG TABLET PO (20:33)
[2021-01-07 21:26] LABS: Anion Gap 12 (12-20); Blood Urea Nitrogen 11 mg/dL (9-16); Calcium 7.8 mg/dL (8.4-10.2); Carbon Dioxide 21 mmol/L (22-29); Chloride 119 mmol/L (96-108); Creatinine Clr Calc Pharmacy 70.7; Estimated Glomerular Filt Rate > 60; Glucose Fasting 202 mg/dL (60-99); Potassium 3.9 mmol/L (3.3-5.1); Sodium 148 mmol/L (135-145)
[2021-01-07 22:12] LABS: Glucose, Whole Blood 105 mg/dL (60-115)
[2021-01-07] MEDS: Insulin Regular/NS 100 UNIT/100 ML PLAST..BAG IVCONT (23:25)
[2021-01-07] MEDS: Midazolam HCl/NS 50 MG/50 ML PLAST..BAG IVCONT (23:34)
--- NOTE | 2021-01-07 23:38 | PC.NURSE ---
[id number]: Pt maintained on Pressure Support vent settings and tolerating well. FiO2 21%. O2 sats 97-100%. On propofol for sedation but requiring prn fentanyl Q1hr prn. MIRANDA Li informed and Midazolam drip ordered. Chem profile drawn at 2100 and results reviewed by MIRANDA Puckett. Insulin drip continues-see flow sheet. Last POC 105 [address]tt adjusted according to PA's order. Vital signs stable. Monitor shows NSR-ST, Heart rate 90's-104, no ectopy. U/O good 40-350 ml/hr. Tolerating tube feeds as odered. Multiple areas of skin alteration that appears to be scabbed over pock castelan. Area on nose is black in middle with reddness surrounding it. Skin photos on chart. Wound nurse to see pt tomorrow.
[2021-01-07 23:57] LABS: Glucose, Whole Blood 52 mg/dL (60-115)
[2021-01-08] VITALS (24 sets, daily range): BP systolic 101–129; BP diastolic 52–89; PULSE 52–96; RESP 15–36; TEMP 35.8–37.1; O2SAT 96–198; BMI 19.8
[2021-01-08] MEDS: vancomycin HCL 1,000 MG in 0.9 % Sodium Chloride 250 ML 270 MG IV (04:40)
[2021-01-08] MEDS: Piperacillin Sodium/Tazobactam 4.5 GM in 0.9 % Sodium Chloride 100 ML IV ×2 (05:00→10:59)
[2021-01-08 05:52] LABS: VBG Base Excess -0.6 mmol/L; VBG HCO3 23 mmol/L (22-26); VBG pCO2 37 mmHg; VBG pO2 52 mmHg
[2021-01-08 05:52] LABS: Glucose, Whole Blood 136 mg/dL (60-115)
[2021-01-08 05:52] LABS: Glucose, Whole Blood 82 mg/dL (60-115)
[2021-01-08 05:52] LABS: Glucose, Whole Blood 143 mg/dL (60-115)
[2021-01-08 05:52] LABS: Glucose, Whole Blood 136 mg/dL (60-115)
[2021-01-08 05:52] LABS: Glucose, Whole Blood 123 mg/dL (60-115)
[2021-01-08 06:03] LABS: Basophils Percent Auto 0.5 % (0-2); Eosinophils Percent Auto 0.4 % (0-4); Hemoglobin 9.3 g/dl (12.0-16.0); Imm Gran Abs Auto 0.02 X10*3/uL (0.00-0.03); Imm Gran Pct Auto 0.3 % (0.0-0.4); Lymphocytes Absolute Auto 2.4 X10*3/uL (1.2-4.9); Lymphocytes Percent Auto 30.4 % (20-40); MANUAL DIFF FLAG NO; Mean Corpuscular Hemoglobin 26.4 pg (27.0-33.0); Mean Corpuscular Volume 85.2 fL (80-98); Mean Platelet Volume 8.8 fL (9.4-12.3); Monocytes Absolute Auto 0.5 X10*3/uL (0.1-1.2); Monocytes Percent Auto 6.3 % (2-11); Neutrophils Absolute Auto 4.9 X10*3/uL (2.0-8.3); Neutrophils Percent Auto 62.1 % (45-73); Platelet Count 145 X10*3/uL (160-400); Red Blood Count 3.52 X10*6/uL (4.20-5.50); Red Cell Distribution Width 17.8 % (11.0-16.0); White Blood Count 7.9 X10*3/uL (4.8-10.8)
[2021-01-08] MEDS: Chlorhexidine Gluc Oral Rinse 15 ML MOUTHWASH BUCCAL (06:21)
[2021-01-08 06:37] LABS: Glucose, Whole Blood 154 mg/dL (60-115)
[2021-01-08 06:39] LABS: Venous Blood Gas Refer to POC result
[2021-01-08 06:47] LABS: Alanine Aminotransferase 12 U/L (0-31); Albumin Level 2.8 g/dL (3.5-5.0); Alkaline Phosphatase 96 U/L (39-117); Anion Gap 11 (12-20); Aspartate Amino Transferase 11 U/L (5-31); Bilirubin Total 0.3 mg/dL (0.0-1.0); Blood Urea Nitrogen 10 mg/dL (9-16); C Reactive Protein 1.12 mg/dL (< or = 0.50); Carbon Dioxide 25 mmol/L (22-29); Chloride 117 mmol/L (96-108); Creatinine Clr Calc Pharmacy 93.7; Estimated Glomerular Filt Rate > 60; Glucose Random 161 mg/dL (60-115); Potassium 4.1 mmol/L (3.3-5.1); Sodium 149 mmol/L (135-145)
[2021-01-08] MEDS: fentaNYL citrate/PF 100 MCG/2 ML VIAL IVPUSH ×2 (07:06→08:15)
[2021-01-08] MEDS: propofoL 1,000 MG/100 ML VIAL 13.2 MG IVCONT (07:07)
[2021-01-08 07:55] LABS: Glucose, Whole Blood 191 mg/dL (60-115)
[2021-01-08] MEDS: QUEtiapine Fumarate 100 MG TABLET PO ×2 (08:50→21:14)
[2021-01-08] MEDS: metroNIDAZOLE 500 MG TABLET G-TUBE (08:50)
[2021-01-08 09:04] LABS: Glucose, Whole Blood 189 mg/dL (60-115)
[2021-01-08] MEDS: Heparin Sodium,Porcine 5,000 UNIT/ML VIAL 5000 UNIT SUBCUT (09:12)
[2021-01-08] MEDS: OLANZapine 10 MG VIAL 5 MG IM (09:30)
--- NOTE | 2021-01-08 09:44 | MHC.CLN ---
F/U PT TO BE EXTUBATED TODAY PER MD PT RECEIVING PROMOTE AT MAX GOAL RATE 40ML/HR WITH 240CC FREE WATER FLUSHES Q SHIFT TO PROVIDE 960KCALS (1352KCALS WITH SEDATION; 30KCALS/KG), 60G PROTEIN (1.3G/KG), 1525CC TOTAL WATER FROM FORMULA AND FLUSHES (34CC/KG) TF ON HOLD DUE TO PENDING EXTUBATION IF PO DIET NEEDED; RECOMMEND 1500DM DIET AND POSSIBLY POLE INSPECTOR EVAL FOR POOR DENTITION FOLLOWING
--- NOTE | 2021-01-08 09:48 | HE.PHANOTE ---
Pharmacy Note - Vancomycin dosing Addendeum Patients renal function has increased from Scr 1.22 on 01/07 to 0.7 on 01/08. New Nov with estimated trough of 16. Vancomycin dose adjusted from 1000 q 24 to 1000mg q 12h.
[2021-01-08 10:58] LABS: Glucose, Whole Blood 316 mg/dL (60-115)
[2021-01-08 10:59] LABS: BV Int Neg Control Negative (Negative); BV Int Pos Control Positive (Positive)
[2021-01-08] MEDS: Dextrose 5 % 1,000 ML 50 ML IVCONT (10:59)
--- NOTE | 2021-01-08 11:00 | PM.CCPN ---
Subjective Subjective Date of Service: 01/08/21 Interval History: Ms. Morgan was admitted to [facility] on Jan 06 with DKA. The patient is a 25-year-old female with a past medical history of diabetes, anxiety, IV drug use, and Staph aureus bacteremia and endocarditis. ?She?s had mult visits to this hospital, most commonly leaving AMA.? At her last admission two and a half weeks ago on December 19, blood cultures drawn in the ED came back positive at 13 hours for MRSA.? She left the hospital AMA before repeat blood cultures or an echocardiogram could be done.? No antibiotics were prescribed for her on the outside, and in fact she told the hospitalist that if a prescription were sent to a pharmacy, she would not pick it up. She previously also had one out of two blood cultures positive for MRSA on 09/23/20, with subsequent negative BCs.? She had TTEs on 09/24/20 and 09/25/20, neither of which showed any vegetation.? But an echo on 08/18/20 showed a ?Large, mass like structure in the right atrium; measuring 3.5 x 2cm; could be vegetation or thrombus; attachment point is not clear, possibly lateral part of tricuspid annulus; in some views, there is protrusion into the tricuspid plane.?? Her most recent BC prior to that echo was on 08/05 and 08/06/20, both of which were negative. HISTORY OF PRESENT ILLNESS:? The patient was BIBA to the ED late on Jan 05 after bystanders found her on the side of the road asking for help.? EMS reported POC was out of range high. In the emergency room, the patient was lethargic, barely opening eyes to painful stimuli.? She was? afebrile, tachycardic to 130s, normotensive, respiratory rate 17, sat?ing? 100% on room air.? Labs in the ED were notable for WBC 21, BUN/creatinine 36/2.8 (baseline about 16/0.7), sodium 135, potassium 5.1, bicarb 5, random glucose 1753, albumin 4.1.? Venous gas showed 7.08/18/-22. She was given 3 L of normal saline, Zosyn, vancomycin, 10 units of IVpush insulin, 20 units of subcut lispro, and Ativan 1 mg.? She was transferred to ICU for further care. In ICU, the patient was acutely ill and minimally responsive.? She required emergent intubation for airway protection.? A central line was placed for IV access.? She was treated with an insulin drip and LR in the usual fashion.? Vanco and Zosyn were continued. Chemistries the following morning were notable for iatrogenic hypernatremia.? BUN/creatinine were almost back to baseline, acidosis was corrected, glucose down to 187.? The insulin drip was stopped and the IV fluids were changed to D5W.? Her sugars went back up and the acidosis recurred.? Half-normal saline was added and the insulin drip was restarted. ?Over the day yesterday, we kept her intubted waiting for blood cultures in case a GEETHA was needed.? We kept her on low dose insulin infusion and further tuned up her chemistries.? Bec of inadequate sedation on propofol at 50ug with Seroquel 100mg bid, we added a Versed infusion at 0.5mg/hr, which did the trick nicely. On exam this morning, she was lightly sedated on the above.? We turned the propofol and Versed off and gave her Zyprexa 5mg IM, in addition to her morning Seroquel.? She was easily extubated to room air a short time later. She?s arousable, opens her eyes to stimulation and looks at me, she opens her mouth to talk, but no words come out.? All drips are off except for D5W at 50 cc/hour and half normal saline at 50 cc/hour.? Heart rate is 80, sinus rhythm, blood pressure 129/88.? RR on room air is low 20s, Sat is 100%. ?She?s afebrile.? No jugular venous distention with the head of the bed at 20-30 degrees.? Chest clear to auscultation, with a normal expiratory phase.? Abdomen is benign, she has no peripheral edema.? She is grossly cachectic and weighs about 45 kg.? The patient's nose still has a 1.5 cm area of erythema on the left of the bridge.? Unchanged from yesterday. She continues on Vanco and Zosyn. ?Yesterday she was given ceftriaxone, Zithromax, Flagyl, and fluconazole for a very malodorous vaginal discharge. LABORATORY DATA::? As below.? Notably, white count is further way down.? Sodium is steady at 149, BUN/creatinine down to 10/0.7, bicarb is up to 25, glucose 161. Echocardiogram on 01/06 done by the tech.? Findings (interpretation by Dr. Niño): Normal LV and RV chamber size and function.? Normal sized inferior vena cava with normal inspiratory collapse.? No vegetation seen on this study. IMPRESSION: 1. IV drug abuse. 2. Severe protein calorie malnutrition.? Started Promote. 3. Terrible dentition. 4. DKA.? Resolved.? F/u with SSI. 5. Acute kidney injury.? 2? hypovolemia.? Resolved post vol resuscitation. 6. Hypernatremia (iatrogenic).? We?ll d/c the 04/19 NS, continue w D5W. 7. ID:? She had a marked leukocytosis on admission, that clearly resolved with antibiotics. ?Given her bacteremia on 12/19/20, it was our assumption that she might well have endocarditis.? But blood cultures are negative so far at 60 hours.? D/W Dr Mcguire.? We?ll d/c the Vanco and Zosyn now. 8. Nose cellulitis.? Cultured MRSA, sensitive to tetracycline.? We?ll give her doxycycline 100 mg po bid x 10 days. 9. Vaginal infection/? STD.? Treated for both yeast and CTNG.? Serology came back positive for trichomonas, so she should continue her course of Flagyl 500 mg bid x 7 days. 10. Neuro.? According to her Med Rec, she takes Seroquel at home.? We?ll continue her on Seroquel 100 mg bid, and add Zyprexa 5mg q4hr prn (can be given IM or po). Time:? 58088. Critical Care Time (minutes): 0 Physical Exam Vital Signs: Vital Signs: Last Vital Signs Temp 98.1 F 01/08/21 07:53 Pulse 89 01/08/21 10:00 Resp 30 H 01/08/21 10:00 BP 129/88 01/08/21 10:00 Pulse Ox 100 01/08/21 10:00 Body Mass Index 19.8 Objective Data Labs CBC & Chem 7: 01/08/21 05:10 01/08/21 05:10 Labs: Laboratory Results - last 24 hr 01/07/21 01/07/21 01/07/21 09:53 11:40 11:40 WBC RBC Hgb Hct MCV MCH MCHC RDW Plt Count MPV Immature Gran % (Auto) Neut % (Auto) Lymph % (Auto) [place] % (Auto) Eos % (Auto) Baso % (Auto) Lymph # (Auto) [place] # (Auto) Eos # (Auto) Baso # (Auto) Abs Immat Gran (auto) Absolute Neuts (auto) Absolute Nucleated RBC Nucleated RBC % (auto) VBG pH VBG pCO2 VBG pO2 VBG HCO3 VBG O2 Saturation VBG Base Excess Sodium Potassium Chloride Carbon Dioxide Anion Gap BUN Creatinine Estim Creat Clear Calc Estimated GFR POC Glucose Random Glucose Fasting Glucose Calcium Phosphorus Magnesium Total Bilirubin AST ALT Alkaline Phosphatase C-Reactive Protein Total Protein Albumin Procalcitonin 0.32 Elly species DNA Negative Chlam trachomat DNA PCR NOT DETECTED [place]rella DNA Probe Negative N.gonorrhoeae DNA (PCR) NOT DETECTED Trichomonas DNA Probe Positive A 01/07/21 01/07/21 01/07/21 13:02 14:51 16:06 WBC RBC Hgb Hct MCV MCH MCHC RDW Plt Count MPV Immature Gran % (Auto) Neut % (Auto) Lymph % (Auto) [place] % (Auto) Eos % (Auto) Baso % (Auto) Lymph # (Auto) [place] # (Auto) Eos # (Auto) Baso # (Auto) Abs Immat Gran (auto) Absolute Neuts (auto) Absolute Nucleated RBC Nucleated RBC % (auto) VBG pH VBG pCO2 VBG pO2 VBG HCO3 VBG O2 Saturation VBG Base Excess Sodium 148 H Potassium 4.7 D Chloride 117 H Carbon Dioxide 22 Anion Gap 14 BUN 13 Creatinine 0.95 Estim Creat Clear Calc 61.0 Estimated GFR > 60 POC Glucose 147 H 282 H Random Glucose 261 H Fasting Glucose Calcium 7.8 L Phosphorus 3.2 Magnesium 2.3 Total Bilirubin AST ALT Alkaline Phosphatase C-Reactive Protein Total Protein Albumin Procalcitonin Elly species DNA Chlam trachomat DNA PCR Gardnerella DNA Probe N.gonorrhoeae DNA (PCR) Trichomonas DNA Probe 01/07/21 01/07/21 01/07/21 18:04 20:17 20:50 WBC RBC Hgb Hct MCV MCH MCHC RDW Plt Count MPV Immature Gran % (Auto) Neut % (Auto) Lymph % (Auto) [place] % (Auto) Eos % (Auto) Baso % (Auto) Lymph # (Auto) [place] # (Auto) Eos # (Auto) Baso # (Auto) Abs Immat Gran (auto) Absolute Neuts (auto) Absolute Nucleated RBC Nucleated RBC % (auto) VBG pH VBG pCO2 VBG pO2 VBG HCO3 VBG O2 Saturation VBG Base Excess Sodium 148 H Potassium 3.9 Chloride 119 H Carbon Dioxide 21 L Anion Gap 12 BUN 11 Creatinine 0.82 Estim Creat Clear Calc 70.7 Estimated GFR > 60 POC Glucose 218 H 198 H Random Glucose Fasting Glucose 202 H Calcium 7.8 L Phosphorus Magnesium Total Bilirubin AST ALT Alkaline Phosphatase C-Reactive Protein Total Protein Albumin Procalcitonin Elly species DNA Chlam trachomat DNA PCR [place]rella DNA Probe N.gonorrhoeae DNA (PCR) Trichomonas DNA Probe 01/07/21 01/07/21 01/08/21 22:08 23:53 00:57 WBC RBC Hgb Hct MCV MCH MCHC RDW Plt Count MPV Immature Gran % (Auto) Neut % (Auto) Lymph % (Auto) [place] % (Auto) Eos % (Auto) Baso % (Auto) Lymph # (Auto) [place] # (Auto) Eos # (Auto) Baso # (Auto) Abs Immat Gran (auto) Absolute Neuts (auto) Absolute Nucleated RBC Nucleated RBC % (auto) VBG pH VBG pCO2 VBG pO2 VBG HCO3 VBG O2 Saturation VBG Base Excess Sodium Potassium Chloride Carbon Dioxide Anion Gap BUN Creatinine Estim Creat Clear Calc Estimated GFR POC Glucose 105 52 L* 82 Random Glucose Fasting Glucose Calcium Phosphorus Magnesium Total Bilirubin AST ALT Alkaline Phosphatase C-Reactive Protein Total Protein Albumin Procalcitonin Elly species DNA Chlam trachomat DNA PCR Gard[place]rella DNA Probe N.gonorrhoeae DNA (PCR) Trichomonas DNA Probe 01/08/21 01/08/21 01/08/21 01:55 03:16 03:53 WBC RBC Hgb Hct MCV MCH MCHC RDW Plt Count MPV Immature Gran % (Auto) Neut % (Auto) Lymph % (Auto) [place] % (Auto) Eos % (Auto) Baso % (Auto) Lymph # (Auto) [place] # (Auto) Eos # (Auto) Baso # (Auto) Abs Immat Gran (auto) Absolute Neuts (auto) Absolute Nucleated RBC Nucleated RBC % (auto) VBG pH VBG pCO2 VBG pO2 VBG HCO3 VBG O2 Saturation VBG Base Excess Sodium Potassium Chloride Carbon Dioxide Anion Gap BUN Creatinine Estim Creat Clear Calc Estimated GFR POC Glucose 123 H 136 H 136 H Random Glucose Fasting Glucose Calcium Phosphorus Magnesium Total Bilirubin AST ALT Alkaline Phosphatase C-Reactive Protein Total Protein Albumin Procalcitonin Elly species DNA Chlam trachomat DNA PCR [place]rella DNA Probe N.gonorrhoeae DNA (PCR) Trichomonas DNA Probe 01/08/21 01/08/21 01/08/21 05:10 05:10 05:12 WBC 7.9 RBC 3.52 L Hgb 9.3 L Hct 30.0 L MCV 85.2 MCH 26.4 L MCHC 31.0 RDW 17.8 H Plt Count 145 L D MPV 8.8 L Immature Gran % (Auto) 0.3 Neut % (Auto) 62.1 Lymph % (Auto) 30.4 [place] % (Auto) 6.3 Eos % (Auto) 0.4 Baso % (Auto) 0.5 Lymph # (Auto) 2.4 [place] # (Auto) 0.5 Eos # (Auto) 0.0 Baso # (Auto) 0.0 Abs Immat Gran (auto) 0.02 Absolute Neuts (auto) 4.9 Absolute Nucleated RBC 0.000 Nucleated RBC % (auto) 0.0 VBG pH 7.40 VBG pCO2 37 VBG pO2 52 VBG HCO3 23 VBG O2 Saturation 79.0 VBG Base Excess -0.6 Sodium 149 H Potassium 4.1 Chloride 117 H Carbon Dioxide 25 Anion Gap 11 L BUN 10 Creatinine 0.70 Estim Creat Clear Calc 93.7 Estimated GFR > 60 POC Glucose Random Glucose 161 H Fasting Glucose Calcium 8.0 L Phosphorus Magnesium Total Bilirubin 0.3 AST 11 ALT 12 Alkaline Phosphatase 96 C-Reactive Protein 1.12 H Total Protein 5.0 L Albumin 2.8 L Procalcitonin Elly species DNA Chlam trachomat DNA PCR [place] DNA Probe N.gonorrhoeae DNA (PCR) Trichomonas DNA Probe 01/08/21 01/08/21 01/08/21 05:27 06:34 07:52 WBC RBC Hgb Hct MCV MCH MCHC RDW Plt Count MPV Immature Gran % (Auto) Neut % (Auto) Lymph % (Auto) [place] % (Auto) Eos % (Auto) Baso % (Auto) Lymph # (Auto) [place] # (Auto) Eos # (Auto) Baso # (Auto) Abs Immat Gran (auto) Absolute Neuts (auto) Absolute Nucleated RBC Nucleated RBC % (auto) VBG pH VBG pCO2 VBG pO2 VBG HCO3 VBG O2 Saturation VBG Base Excess Sodium Potassium Chloride Carbon Dioxide Anion Gap BUN Creatinine Estim Creat Clear Calc Estimated GFR POC Glucose 143 H 154 H 191 H Random Glucose Fasting Glucose Calcium Phosphorus Magnesium Total Bilirubin AST ALT Alkaline Phosphatase C-Reactive Protein Total Protein Albumin Procalcitonin Elly species DNA Chlam trachomat DNA PCR [place] DNA Probe N.gonorrhoeae DNA (PCR) Trichomonas DNA Probe 01/08/21 01/08/21 09:01 10:56 WBC RBC Hgb Hct MCV MCH MCHC RDW Plt Count MPV Immature Gran % (Auto) Neut % (Auto) Lymph % (Auto) [place] % (Auto) Eos % (Auto) Baso % (Auto) Lymph # (Auto) [place] # (Auto) Eos # (Auto) Baso # (Auto) Abs Immat Gran (auto) Absolute Neuts (auto) Absolute Nucleated RBC Nucleated RBC % (auto) VBG pH VBG pCO2 VBG pO2 VBG HCO3 VBG O2 Saturation VBG Base Excess Sodium Potassium Chloride Carbon Dioxide Anion Gap BUN Creatinine Estim Creat Clear Calc Estimated GFR POC Glucose 189 H 316 H Random Glucose Fasting Glucose Calcium Phosphorus Magnesium Total Bilirubin AST ALT Alkaline Phosphatase C-Reactive Protein Total Protein Albumin Procalcitonin Elly species DNA Chlam trachomat DNA PCR [place]rella DNA Probe N.gonorrhoeae DNA (PCR) Trichomonas DNA Probe Microbiology Microbiology Results: Microbiology 01/06/21 15:00 Nose Gram Stain - Final 01/06/21 15:00 Nose Routine Culture - Final Methicillin Res Staph Aureus 01/05/21 23:52 Blood - Venous Blood Culture - Preliminary No growth after 48 hours. 01/05/21 23:48 Blood - Venous Blood Culture - Preliminary No growth after 48 hours. Quality Stroke Does the patient have a stroke diagnosis?: No VTE Prior VTE?: No VTE Risk Level:: Medical - low VTE Device Contraindication: Treatment Not Indicated VTE Drug Contraindication: N/A - Med Ordered
[2021-01-08] MEDS: Insulin Glargine,Hum.rec.anlog 100 UNIT/ML 10 ML VIAL 30 UNIT SUBCUT (11:10)
[2021-01-08] MEDS: Insulin Lispro 100 UNIT/ML 3 ML VIAL 8 UNIT SUBCUT (11:11)
--- NOTE | 2021-01-08 11:48 | PC.NURSE ---
Patient extubated at 0935 to room air. Respirations even, nonlabored, 16-22. Lung sounds clear throughout. Dry intermittent cough noted. Tolerating thin liquids well. Patient restless, requiring frequent redirections. Zyprexa 5mg IM and Seroquel administered prior to extubation. Bed alarm in place and Ayala monitoring camera in place for safety. Patient noticed multiple times attempting to get OOB by floor staff - staff not notified by video monitoring veterinary technician - Inspector Packager notified of incidents. 1145 - ROLL CARRIER at bedside - R IJ TLC out of patients neck and lying in bed with IV fluids attached. No bleeding to site noted. Patient positioned supine, O2 sat 99% on RA. Again, staff not notified by video monitoring veterinary technician of incident - Inspector Packager notified again and this RN requested another video monitoring veterinary technician for safety concerns. MD notified and aware of absent IV access. Okay to continue without access per MD. IV medications discontinued and patient switched to PO. HR dipping to low 50's, sinus - MD aware. No interventions at this time.
--- NOTE | 2021-01-08 13:44 | P.CONWO_ITS ---
History of Present Illness Data of Consult Service Date: 01/08/21 Requesting physician: Alvarado Jiménez Primary Care Provider: Unknown Physician HPI Reason for consult: multiple skin wounds/lesions The patient is a 25-year-old unfortunately female who is a repeat patient at the hospital due to IV drug abuse. She came in and is being treated for severe DKA and had to be intubated for airway protection and to take care of her and during this admission was noted to have multiple skin wounds throughout her entire body trunk as well as extremities and back and scalp and face. There was parti cularly worry some swelling and skin changes at the nose concerning for an abscess and surgical evaluation was carried out in the wound was draining and culture than this now reveals MRSA. She is on antibiotics for this. The patient is not cooperative in regard to answering questions or allowing for full body examination. This is consistent with her behavior on previous admission as well. Today she has extubated but not cooperative on examination other than just her face. She denies any significant pain and says that she feels fine. Review of Systems Review of Systems: Yes Unobtainable due to mental status [facility] Medical History Anxiety Cocaine abuse Diabetes mellitus type 1 Endocarditis Heroin abuse Staphylococcus aureus bacteremia Pertinent family history: Noncontributory Social History Household Members: Unknown / Unable to assess Housing: Homeless Do you presently have visiting nurse or other home services: No Unable to assess alcohol history related to: Unable to respond Alcohol intake: current Alcohol intake frequency: 3 or more drinks per day Alcohol type: beer, wine and hard liquor Patient Tobacco Use Status: Current everyday Tobacco user Tobacco use type: Cigarette Cigarette Packs Per Day: 1 Cigarettes Per Day: 20.0 Substance Use Type: Heroin, IV Drugs, Marijuana and Opiates Currently Displaying Signs/Symptoms of Drug Intoxication Withdrawal: No Advance Directives: No Advance Directives Information Provided: No Do you have thoughts of harming others: None Do you have a plan to hurt others: No Plan service: No Current occupational status: unemployed Meds Allergies Allergy/AdvReac Type Severity Reaction Status Date / Time No Known Allergies Allergy Verified 12/20/20 07:52 Active Medications: Current Medications Chlorhexidine Gluconate (Chlorhexidine Gluc Oral Rinse 15 Ml Mouthwash) 15 ml BUCCAL Q8H [facility] Last Admin: 01/08/21 11:24 Dose: Not Given Documented by: Doxycycline Hyclate (Doxycycline Hyclate 100 Mg Tablet) 100 mg PO Q12H [facility] Stop: 01/18/21 04:01 Fentanyl (Fentanyl Citrate/Pf 100 Mcg/2 Ml Vial) 50 mcg IVPUSH Q5M PRN; Protocol PRN Reason: agitation Heparin Sodium (Porcine) (Heparin Sodium,Porcine 5,000 Unit/Ml Vial) 5,000 unit SUBCUT Q12H [facility] Last Admin: 01/08/21 09:12 Dose: 5,000 unit Documented by: Insulin Human Regular (Myxredlin) 100 unit in 100 mls @ 1 mls/hr IVCONT .Q24H [facility] Last Infusion: 01/08/21 11:47 Dose: Infused Documented by: Insulin Human Lispro (Insulin Lispro 100 Unit/Ml 3 Ml Vial) 0 unit SUBCUT Q6H [facility]; Protocol Last Admin: 01/08/21 11:20 Dose: Not Given Documented by: Metronidazole (Metronidazole 500 Mg Tablet) 500 mg PO BID [facility] Olanzapine (Olanzapine 10 Mg Vial) 5 mg IM Q4H PRN PRN Reason: Anxiety Last Admin: 01/08/21 09:30 Dose: 5 mg Documented by: Pharmacy Consult (Consult Rx Vancomycin Dosing) 1 each MISCELLANE DAILY PRN PRN Reason: Consult order Quetiapine Fumarate (Quetiapine Fumarate 100 Mg Tablet) 100 mg PO BID [facility] Last Admin: 01/08/21 08:50 Dose: 100 mg Documented by: Home Medications Medication Instructions Recorded Confirmed Last Taken Type insulin glargine 100 unit/mL (3 30 unit SUBCUT BEDTIME 09/24/20 12/19/20 Unknown History mL) subcutaneous pen (Lantus Solostar U-100 Insulin) insulin lispro 100 unit/mL See Protocol SUBCUT USEASDIRECTD 09/24/20 12/19/20 Unknown History subcutaneous solution (Humalog U-100 Insulin) quetiapine 100 mg tablet 0.5 - 1 tab PO BEDTIME PRN 12/19/20 01/06/21 Unknown History quetiapine 50 mg tablet 0.5 - 1 tab PO BID PRN 12/19/20 01/06/21 Unknown History Physical Exam Vital Signs and Narrative: Vital Signs: Last Vital Signs Temp 98.7 F 01/08/21 13:00 Pulse 96 01/08/21 13:00 Resp 15 01/08/21 13:00 BP 120/87 01/08/21 13:00 Pulse Ox 98 01/08/21 13:00 Body Mass Index 19.8 Skin: Other: On the bridge of the patient's knows especially on the left side there is some swelling little deformity and erythema. With palpation there is no true area fluctuance and there is not much drainage. This does not appear to be tender to the patient and she denies any pain with palpation. The rest of her body is covered in little scab lesions from about 2 mm to 1.5 mm on her lower extremity some of which may be consistent with injection and tract sites from her drug abuse and others may be from scratching. The most worrisome spot in regard to infectious issue is on her face and knows and around her oral area where there are some ulcerated lesions. Please see picture is Results Labs CBC and Chem 7: 01/08/21 05:10 01/08/21 05:10 Labs: Laboratory Results - last 24 hr 01/07/21 01/07/21 01/07/21 11:40 11:40 14:51 MCV MCH MCHC RDW Plt Count MPV Immature Gran % (Auto) Neut % (Auto) Lymph % (Auto) Beadle % (Auto) Eos % (Auto) Baso % (Auto) Lymph # (Auto) Beadle # (Auto) Eos # (Auto) Baso # (Auto) Abs Immat Gran (auto) Absolute Neuts (auto) Absolute Nucleated RBC Nucleated RBC % (auto) VBG pH VBG pCO2 VBG pO2 VBG HCO3 VBG O2 Saturation VBG Base Excess Anion Gap 14 Estim Creat Clear Calc 61.0 Estimated GFR > 60 POC Glucose Random Glucose 261 H Fasting Glucose Calcium 7.8 L Phosphorus 3.2 Magnesium 2.3 Total Bilirubin AST ALT Alkaline Phosphatase C-Reactive Protein Total Protein Albumin Elly species DNA Negative Chlam trachomat DNA PCR NOT DETECTED Gardnerella DNA Probe Negative N.gonorrhoeae DNA (PCR) NOT DETECTED Trichomonas DNA Probe Positive A 01/07/21 01/07/21 01/07/21 16:06 18:04 20:17 MCV MCH MCHC RDW Plt Count MPV Immature Gran % (Auto) Neut % (Auto) Lymph % (Auto) Beadle % (Auto) Eos % (Auto) Baso % (Auto) Lymph # (Auto) Beadle # (Auto) Eos # (Auto) Baso # (Auto) Abs Immat Gran (auto) Absolute Neuts (auto) Absolute Nucleated RBC Nucleated RBC % (auto) VBG pH VBG pCO2 VBG pO2 VBG HCO3 VBG O2 Saturation VBG Base Excess Anion Gap Estim Creat Clear Calc Estimated GFR POC Glucose 282 H 218 H 198 H Random Glucose Fasting Glucose Calcium Phosphorus Magnesium Total Bilirubin AST ALT Alkaline Phosphatase C-Reactive Protein Total Protein Albumin Elly species DNA Chlam trachomat DNA PCR Gardnerella DNA Probe N.gonorrhoeae DNA (PCR) Trichomonas DNA Probe 01/07/21 01/07/21 01/07/21 20:50 22:08 23:53 MCV MCH MCHC RDW Plt Count MPV Immature Gran % (Auto) Neut % (Auto) Lymph % (Auto) Beadle % (Auto) Eos % (Auto) Baso % (Auto) Lymph # (Auto) Beadle # (Auto) Eos # (Auto) Baso # (Auto) Abs Immat Gran (auto) Absolute Neuts (auto) Absolute Nucleated RBC Nucleated RBC % (auto) VBG pH VBG pCO2 VBG pO2 VBG HCO3 VBG O2 Saturation VBG Base Excess Anion Gap 12 Estim Creat Clear Calc 70.7 Estimated GFR > 60 POC Glucose 105 52 L* Random Glucose Fasting Glucose 202 H Calcium 7.8 L Phosphorus Magnesium Total Bilirubin AST ALT Alkaline Phosphatase C-Reactive Protein Total Protein Albumin Elly species DNA Chlam trachomat DNA PCR Gardnerella DNA Probe N.gonorrhoeae DNA (PCR) Trichomonas DNA Probe 01/08/21 01/08/21 01/08/21 00:57 01:55 03:16 MCV MCH MCHC RDW Plt Count MPV Immature Gran % (Auto) Neut % (Auto) Lymph % (Auto) Beadle % (Auto) Eos % (Auto) Baso % (Auto) Lymph # (Auto) Beadle # (Auto) Eos # (Auto) Baso # (Auto) Abs Immat Gran (auto) Absolute Neuts (auto) Absolute Nucleated RBC Nucleated RBC % (auto) VBG pH VBG pCO2 VBG pO2 VBG HCO3 VBG O2 Saturation VBG Base Excess Anion Gap Estim Creat Clear Calc Estimated GFR POC Glucose 82 123 H 136 H Random Glucose Fasting Glucose Calcium Phosphorus Magnesium Total Bilirubin AST ALT Alkaline Phosphatase C-Reactive Protein Total Protein Albumin Elly species DNA Chlam trachomat DNA PCR Gardnerella DNA Probe N.gonorrhoeae DNA (PCR) Trichomonas DNA Probe 01/08/21 01/08/21 01/08/21 03:53 05:10 05:10 MCV 85.2 MCH 26.4 L MCHC 31.0 RDW 17.8 H Plt Count 145 L D MPV 8.8 L Immature Gran % (Auto) 0.3 Neut % (Auto) 62.1 Lymph % (Auto) 30.4 Beadle % (Auto) 6.3 Eos % (Auto) 0.4 Baso % (Auto) 0.5 Lymph # (Auto) 2.4 Beadle # (Auto) 0.5 Eos # (Auto) 0.0 Baso # (Auto) 0.0 Abs Immat Gran (auto) 0.02 Absolute Neuts (auto) 4.9 Absolute Nucleated RBC 0.000 Nucleated RBC % (auto) 0.0 VBG pH VBG pCO2 VBG pO2 VBG HCO3 VBG O2 Saturation VBG Base Excess Anion Gap 11 L Estim Creat Clear Calc 93.7 Estimated GFR > 60 POC Glucose 136 H Random Glucose 161 H Fasting Glucose Calcium 8.0 L Phosphorus Magnesium Total Bilirubin 0.3 AST 11 ALT 12 Alkaline Phosphatase 96 C-Reactive Protein 1.12 H Total Protein 5.0 L Albumin 2.8 L Elly species DNA Chlam trachomat DNA PCR Gardnerella DNA Probe N.gonorrhoeae DNA (PCR) Trichomonas DNA Probe 01/08/21 01/08/21 01/08/21 05:12 05:27 06:34 MCV MCH MCHC RDW Plt Count MPV Immature Gran % (Auto) Neut % (Auto) Lymph % (Auto) Beadle % (Auto) Eos % (Auto) Baso % (Auto) Lymph # (Auto) Beadle # (Auto) Eos # (Auto) Baso # (Auto) Abs Immat Gran (auto) Absolute Neuts (auto) Absolute Nucleated RBC Nucleated RBC % (auto) VBG pH 7.40 VBG pCO2 37 VBG pO2 52 VBG HCO3 23 VBG O2 Saturation 79.0 VBG Base Excess -0.6 Anion Gap Estim Creat Clear Calc Estimated GFR POC Glucose 143 H 154 H Random Glucose Fasting Glucose Calcium Phosphorus Magnesium Total Bilirubin AST ALT Alkaline Phosphatase C-Reactive Protein Total Protein Albumin Elly species DNA Chlam trachomat DNA PCR Gardnerella DNA Probe N.gonorrhoeae DNA (PCR) Trichomonas DNA Probe 01/08/21 01/08/21 01/08/21 07:52 09:01 10:56 MCV MCH MCHC RDW Plt Count MPV Immature Gran % (Auto) Neut % (Auto) Lymph % (Auto) Beadle % (Auto) Eos % (Auto) Baso % (Auto) Lymph # (Auto) Beadle # (Auto) Eos # (Auto) Baso # (Auto) Abs Immat Gran (auto) Absolute Neuts (auto) Absolute Nucleated RBC Nucleated RBC % (auto) VBG pH VBG pCO2 VBG pO2 VBG HCO3 VBG O2 Saturation VBG Base Excess Anion Gap Estim Creat Clear Calc Estimated GFR POC Glucose 191 H 189 H 316 H Random Glucose Fasting Glucose Calcium Phosphorus Magnesium Total Bilirubin AST ALT Alkaline Phosphatase C-Reactive Protein Total Protein Albumin Elly species DNA Chlam trachomat DNA PCR Gardnerella DNA Probe N.gonorrhoeae DNA (PCR) Trichomonas DNA Probe Assessment and Plan (1) Skin lesions: Status: Acute 25-year-old female with multiple skin lesions looking like old tract castelan injection sites as well as maybe some skin excoriation areas as well as maybe some irritated areas. She does have MRSA. Agree with treating especially the facial area with IV antibiotics and evaluating with surgery whether there may be a need for incision and drainage of this is not improving. In regard to the other little skin areas would recommend Bactroban dressing is and trying to encourage the patient not to scratch or itch the open wounds.
--- NOTE | 2021-01-08 14:05 | MHC.RECOVRN ---
T/w met with pt in 253 to check in as t/w has had many interactions with pt in the past. Pt sitting up in bed, appears drowsy, however, recognizes and remembers t/w name. Pt asking for a warm blanket and had just removed her duff. Pt states Everyone is being mean, treat me like a human. I can go to the bathroom. Pt aware that she needs to be seen by psych prior to dc. Pt reports since last admission she has continued to be homeless. Pt asking for ice cream and would like to continue conversation after having ice cream. T/w notified pts RN of pts request. Discussed with Xiomara Louise APRN. Will continue to follow.
[2021-01-08 14:36] LABS: Glucose, Whole Blood 162 mg/dL (60-115)
[2021-01-08 16:38] LABS: Glucose, Whole Blood 197 mg/dL (60-115)
[2021-01-08] MEDS: Insulin Lispro 100 UNIT/ML 3 ML VIAL SUBCUT ×2 (17:02→21:22)
[2021-01-08] MEDS: metroNIDAZOLE 500 MG TABLET PO (21:14)
[2021-01-08 21:22] LABS: Glucose, Whole Blood 238 mg/dL (60-115)
[2021-01-09] VITALS: BP 116/75; PULSE 87; RESP 25; TEMP 37.2; O2SAT 98
[2021-01-09] MEDS: Acetaminophen 325 MG TABLET 650 MG PO (00:09)
[2021-01-09 04:00] VITALS: BP 119/77; PULSE 60; RESP 22; TEMP 37.1; O2SAT 99
[2021-01-09 05:39] LABS: Hematocrit 30.4 % (37-47); Hemoglobin 9.7 g/dl (12.0-16.0); Mean Corpuscular HGB Conc 31.9 g/dl (31.0-35.0); Mean Corpuscular Hemoglobin 26.1 pg (27.0-33.0); Mean Corpuscular Volume 81.7 fL (80-98); Mean Platelet Volume 9.1 fL (9.4-12.3); Platelet Count 160 X10*3/uL (160-400); Red Blood Count 3.72 X10*6/uL (4.20-5.50); Red Cell Distribution Width 17.4 % (11.0-16.0); White Blood Count 6.7 X10*3/uL (4.8-10.8)
[2021-01-09 05:59] LABS: Anion Gap 9 (12-20); Blood Urea Nitrogen 6 mg/dL (9-16); Carbon Dioxide 25 mmol/L (22-29); Chloride 110 mmol/L (96-108); Creatinine Clr Calc Pharmacy 111.2; Estimated Glomerular Filt Rate > 60; Glucose Random 234 mg/dL (60-115); Magnesium 1.6 mg/dL (1.6-2.6); Phosphorus 3.1 mg/dL (2.7-4.5); Potassium 3.6 mmol/L (3.3-5.1); Sodium 140 mmol/L (135-145)
[2021-01-09 06:00] VITALS: BMI 20.1
--- NOTE | 2021-01-09 06:09 | PC.NURSE ---
Assumed care of pt at 1900. Pt was drowsy but responsive to name at that time. Incontinent of urine and later stool. C/o being thirsty and taking fluids without difficulty. Cooperative with most care but at times would not follow commands, just wanted to sleep. Slept most of the night. Refused SQ Heparin. Tylenol given for generalized discomfort with good effect. Vital signs stable. Monitor: NSR rate 60-70's, no ectopy. Awake now and watching TV eating a sherbert. Pt instructed how to call for nurse if she needs to go to the bathroom.
[2021-01-09 07:16] LABS: Glucose, Whole Blood 312 mg/dL (60-115)
[2021-01-09 08:00] VITALS: BP 122/82; PULSE 88; RESP 22; TEMP 37.3; O2SAT 99
[2021-01-09] MEDS: Insulin Lispro 100 UNIT/ML 3 ML VIAL SUBCUT ×2 (08:09→11:47)
[2021-01-09] MEDS: Mupirocin 2 % Oint 22 GM TUBE 1 APPL TOPICAL (08:11)
[2021-01-09] MEDS: Magnesium Oxide 400 MG TABLET PO ×3 (08:11→19:23)
[2021-01-09] MEDS: metroNIDAZOLE 500 MG TABLET PO ×2 (08:11→19:23)
[2021-01-09] MEDS: QUEtiapine Fumarate 100 MG TABLET PO ×2 (08:11→19:23)
[2021-01-09] MEDS: Insulin Glargine,Hum.rec.anlog 100 UNIT/ML 10 ML VIAL 30 UNIT SUBCUT (09:40)
--- NOTE | 2021-01-09 09:41 | MHC.CLN ---
F/U PT SUCCESSFULLY EX-TUBATED DIET RX: [id number]-APPROPRIATE MD REQUESTED LIBERAL DIABETIC DIET R/T INCREASED NUTRITION RISK FROM MALNUTRITION MONITOR PO INTAKE CLOSELY PT REFUSES DM TEACHING AT THIS TIME
[2021-01-09 09:46] VITALS: BMI 20.1
--- NOTE | 2021-01-09 10:57 | P.PNCC_ITS ---
Subjective Subjective Date of Service: 01/09/21 Interval History: Ms. Morgan was admitted to ICU on Jan 06 with DKA. The patient is a 25-year-old female with a past medical history of diabetes, anxiety, IV drug use, and Staph aureus bacteremia. ?(I?ve been unable to find conclusive evidence that she?s actually had echocardiographically confirmed endocarditis.? See further comment below)? She?s had mult visits to this hospital, most commonly leaving AMA.? At her last admission two and a half weeks ago on December 19, blood cultures drawn in the ED came back positive at 13 hours for MRSA.? She left the hospital AMA before repeat blood cultures or an echocardiogram could be done.? No antibiotics were prescribed for her on the outside, and in fact she told the hospitalist that if a prescription were sent to a pharmacy, she would not pick it up. HISTORY OF PRESENT ILLNESS:? The patient was BIBA to the ED late on Jan 05 after bystanders found her on the side of the road asking for help.? EMS reported POC was out of range high. In the emergency room, the patient was lethargic, barely opening eyes to painful stimuli.? She was? afebrile, tachycardic to 130s, normotensive, respiratory rate 17, sat?ing? 100% on room air.? Labs in the ED were notable for WBC 21, BUN/creatinine 36/2.8 (baseline about 16/0.7), sodium 135, potassium 5.1, bicarb 5, random glucose 1753, albumin 4.1.? Venous gas showed 7.08/18/-22. She was given 3 L of normal saline, Zosyn, vancomycin, 10 units of IVpush insulin, 20 units of subcut lispro, and Ativan 1 mg.? She was transferred to ICU for further care. In ICU, the patient was acutely ill and minimally responsive.? She required emergent intubation for airway protection.? A central line was placed for IV access.? She was treated with an insulin drip and LR in the usual fashion.? Vanco and Zosyn were continued. Chemistries the following morning were notable for iatrogenic hypernatremia, up to 158.? BUN/creatinine were almost back to baseline, acidosis was corrected, glucose down to 187.? Since then, she?s been on and off the insulin drip, and required D5W and 1/2 NS to bring her sodium level back to normal.? We kept her intubated for two days waiting for blood cultures to come back, in case she needed a GEETHA.? We added Seroquel and prn Zyprexa to control her behavior.? She had a nasal MRSA cellulitis for which we put her on a 10 day course of oral doxycycline, and a trichomonas vaginal discharge for which we put her on a 7 day course of oral Flagyl. A section 12 order was put in her chart on Jan 07.? BC?s yesterday morning (at 60 hours) were still negative, so she was extubated.? The insulin drip was d/c?d yesterday morning and she was started on Lantus 30u qAM plus SS insulin.? She pulled her central line so we left her with no IV access. This morning she?s fully awake.? Ate about half her breakfast.? She?s oriented x 3.? Wants to leave the hospital.? The cellulitis on her nose is about 50% better than yesterday.? Heart rate 80s, sinus rhythm, blood pressure 122/82.? RR on room air is low 20s, Sat is 100%.? She?s afebrile.? No jugular venous distention with the head of the bed at 20-30 degrees.? Abdomen is benign, she has no peripheral edema.? She is grossly cachectic and weighs about 45 kg. LABORATORY DATA::? As below.? Notably, Sodium is finally normalized, BUN/creatinine down to baseline, glucose 234. Echocardiogram on 01/06 done by the [facility].? Findings (interpretation by Dr. Niño):? Normal LV and RV chamber size and function.? Normal sized inferior vena cava with normal inspiratory collapse.? No vegetation seen on this study. IMPRESSION: 1. IV drug abuse. 2. Severe protein calorie malnutrition.? I?ve asked the clothing and textiles teacher to put her on a ?no-added sweets? diet.? There?s no point in putting her on a diabetic diet. 3. Terrible dentition. 4. DKA.? Resolved.? F/u with Lantus and SSI. 5. Acute kidney injury.? 2? hypovolemia.? Resolved post vol resuscitation. 6. Hypernatremia (iatrogenic).? Resolved. 7. ID:? She had a marked leukocytosis on admission, that clearly resolved with antibiotics.? Given her bacteremia on 12/19/20, it was our assumption that she might well have endocarditis.? But blood cultures and the echo were negative. 8. Has she ever had proven endocarditis?:? She previously had negative echocardiograms on 09/24/20 and 09/25/20.? On 08/17/20, she was admitted to the hospital for DKA and was found to have an abscess in her neck, thought to be at the site of a previous CVC.? That abscess grew out Strep pyogenes, but no blood cultures were done.? An echo was done on 08/18 however, which showed a ?large, mass like structure in the right atrium; measuring 3.5 x 2cm; could be vegetation or thrombus; attachment point is not clear, possibly lateral part of tricuspid annulus; in some views, there is protrusion into the tricuspid plane. ?Also, a small density noted in the non coronary cusp of the aortic valve that c ould be vegetation.? The patient signed out of the hospital the next day however, before any fu rther action could be taken. ? The next time the patient had blood cultures drawn here was on 09/11/2020.? One set of those blood cultures came back positive for Elly.? She had another two sets of blood cultures drawn on 09/13/20, both of which were negative.? She next had two sets of blood cultures drawn on 09/23/2020, one set of which grew MRSA.? She next had two sets of blood cultures drawn on , both of which were negative and then another two sets on 11/04/2020 both of which were neg ative. ? In summary, none of her positive blood cultures have persisted, or been associated with a positive echo finding.? And the one time she did have a positive echo finding, the finding itself was questionable, and it was not associated with positive blood cultures.? So I don?t see evidence that I can point to that conclusively indicates that she?s ever had endocarditis. 9. Nose cellulitis.? Cultured MRSA, sensitive to tetracycline.? We started her yesterday on doxycycline 100 mg po bid x 10 days.? It goes without saying that once she leaves the hospital, she?s unlikely to finish the course of abx. 10. Vaginal infection/? STD.? She?s been treated for both yeast and CTNG.? Serology came back positive for trichomonas, so she should continue her course of Flagyl 500 mg bid x 7 days, which we started on 01/07.? Ditto the above comment. 11. Neuro/psych.? According to her Med Rec, she takes Seroquel at home.? We?ll continue her on Seroquel 100 mg bid, and add Zyprexa 5mg q4hr prn (can be given IM or po).? Discussed at length with Roselyn Page.? Section 12 is done.? Holding the patient pending psychiatry evaluation. Stable for transfer to med surg.? Will sign out to hospitalists. Time:? . Critical Care Time (minutes): 0 Physical Exam Vital Signs: Vital Signs: Last Vital Signs Temp 99.2 F 01/09/21 08:00 Pulse 88 01/09/21 08:00 Resp 22 H 01/09/21 08:00 BP 122/82 01/09/21 08:00 Pulse Ox 99 01/09/21 08:00 Body Mass Index 20.1 Objective Data Labs CBC & Chem 7: 01/09/21 05:24 01/09/21 05:24 Labs: Laboratory Results - last 24 hr 01/07/21 01/08/21 01/08/21 11:40 10:56 14:34 WBC RBC Hgb Hct MCV MCH MCHC RDW Plt Count MPV Absolute Nucleated RBC Nucleated RBC % (auto) Sodium Potassium Chloride Carbon Dioxide Anion Gap BUN Creatinine Estim Creat Clear Calc Estimated GFR POC Glucose 316 H 162 H Random Glucose Calcium Phosphorus Magnesium Elly species DNA Negative Gardnerella DNA Probe Negative Trichomonas DNA Probe Positive A 01/08/21 01/08/21 01/09/21 16:35 21:18 05:24 WBC RBC Hgb Hct MCV MCH MCHC RDW Plt Count MPV Absolute Nucleated RBC Nucleated RBC % (auto) Sodium 140 Potassium 3.6 Chloride 110 H Carbon Dioxide 25 Anion Gap 9 L BUN 6 L Creatinine 0.59 Estim Creat Clear Calc 111.2 Estimated GFR > 60 POC Glucose 197 H 238 H Random Glucose 234 H Calcium 8.0 L Phosphorus 3.1 Magnesium 1.6 Elly species DNA Gardnerella DNA Probe Trichomonas DNA Probe 01/09/21 01/09/21 05:24 07:13 WBC 6.7 RBC 3.72 L Hgb 9.7 L Hct 30.4 L MCV 81.7 MCH 26.1 L MCHC 31.9 RDW 17.4 H Plt Count 160 MPV 9.1 L Absolute Nucleated RBC 0.000 Nucleated RBC % (auto) 0.0 Sodium Potassium Chloride Carbon Dioxide Anion Gap BUN Creatinine Estim Creat Clear Calc Estimated GFR POC Glucose 312 H Random Glucose Calcium Phosphorus Magnesium Elly species DNA Gardnerella DNA Probe Trichomonas DNA Probe Microbiology Microbiology Results: Microbiology 01/06/21 15:00 Nose Gram Stain - Final 01/06/21 15:00 Nose Routine Culture - Final Methicillin Res Staph Aureus 01/05/21 23:52 Blood - Venous Blood Culture - Preliminary No growth after 48 hours. 01/05/21 23:48 Blood - Venous Blood Culture - Preliminary No growth after 48 hours. Quality Stroke Does the patient have a stroke diagnosis?: No VTE Prior VTE?: No VTE Risk Level:: Medical - low VTE Device Contraindication: Treatment Not Indicated VTE Drug Contraindication: N/A - Med Ordered
[2021-01-09 11:11] LABS: Glucose, Whole Blood 198 mg/dL (60-115)
--- NOTE | 2021-01-09 11:42 | MHC.CM.PN ---
Met with pt to discuss d/c plans: pt asking to leave: states she's staying with a friend but won't divulge the address. Asking for drinks and ice cream. Attempted to review plan for diabetic management, I know, I know I've had diabetes for a long time, can I have a gingerale? Pt is expected to move to Med Surg today: will need to be seen by psych to determine pt's ability to make safe self care decisions as she has a long standing hx of dangerous self care negligence and leaving AMA.
[2021-01-09 12:00] VITALS: BP 123/80; PULSE 81; RESP 23; TEMP 37.2; O2SAT 99
--- NOTE | 2021-01-09 12:14 | PM.IDPN ---
Subjective Subjective Date of Service: 01/09/21 Critical Care Time (minutes): 15 Comment: she feels better nasal area is sore Objective Data Labs CBC & Chem 7: 01/09/21 05:24 01/09/21 05:24 Labs: Laboratory Results - last 24 hr 01/08/21 01/08/21 01/08/21 14:34 16:35 21:18 WBC RBC Hgb Hct MCV MCH MCHC RDW Plt Count MPV Absolute Nucleated RBC Nucleated RBC % (auto) Sodium Potassium Chloride Carbon Dioxide Anion Gap BUN Creatinine Estim Creat Clear Calc Estimated GFR POC Glucose 162 H 197 H 238 H Random Glucose Calcium Phosphorus Magnesium 01/09/21 01/09/21 01/09/21 05:24 05:24 07:13 WBC 6.7 RBC 3.72 L Hgb 9.7 L Hct 30.4 L MCV 81.7 MCH 26.1 L MCHC 31.9 RDW 17.4 H Plt Count 160 MPV 9.1 L Absolute Nucleated RBC 0.000 Nucleated RBC % (auto) 0.0 Sodium 140 Potassium 3.6 Chloride 110 H Carbon Dioxide 25 Anion Gap 9 L BUN 6 L Creatinine 0.59 Estim Creat Clear Calc 111.2 Estimated GFR > 60 POC Glucose 312 H Random Glucose 234 H Calcium 8.0 L Phosphorus 3.1 Magnesium 1.6 01/09/21 11:08 WBC RBC Hgb Hct MCV MCH MCHC RDW Plt Count MPV Absolute Nucleated RBC Nucleated RBC % (auto) Sodium Potassium Chloride Carbon Dioxide Anion Gap BUN Creatinine Estim Creat Clear Calc Estimated GFR POC Glucose 198 H Random Glucose Calcium Phosphorus Magnesium Microbiology Microbiology Results: Microbiology 01/06/21 15:00 Nose Gram Stain - Final 01/06/21 15:00 Nose Routine Culture - Final Methicillin Res Staph Aureus 01/05/21 23:52 Blood - Venous Blood Culture - Preliminary No growth after 48 hours. 01/05/21 23:48 Blood - Venous Blood Culture - Preliminary No growth after 48 hours. Physical Exam Vital Signs: Vital Signs: Last Vital Signs Temp 99.2 F 01/09/21 08:00 Pulse 88 01/09/21 08:00 Resp 22 H 01/09/21 08:00 BP 122/82 01/09/21 08:00 Pulse Ox 99 01/09/21 08:00 Body Mass Index 20.1 Const: General: cooperative HENMT: Other: nasal erythema,scab Mouth: Normal oral and palatal mucosa present Resp: Effort & Inspection: normal respiratory effort Cardio: Rate: regular rate Rhythm: regular rhythm GI: Palpation (GI): Soft to palpation and nontender Assessment and Plan Assessment and plan (1) Skin lesions: Problem details: Her nasal area is improving She also has vaginal discharge Status: Acute Assessment and Plan: Finish 10 days Doxycycline Flagyl for possible PID as well S/P Ceftriaxone IM (2) Abscess of face: Status: Acute Time Spent With Patient Time: Total time spent is greater than 50% in coordination of care (as documented) at patient's floor/unit and/or counseling patient: Time with patient: 15 - 24 minutes
[2021-01-09 15:33] LABS: Glucose, Whole Blood 78 mg/dL (60-115)
[2021-01-09 16:00] VITALS: BP 122/71; PULSE 85; RESP 16; TEMP 37.2; O2SAT 100
[2021-01-09 16:45] LABS: Glucose, Whole Blood 108 mg/dL (60-115)
--- NOTE | 2021-01-09 17:43 | P.DS_ITS ---
DS: Providers Provider Date of Service: 01/09/21 Date of admission: 01/06/21 00:43 Primary care physician: Unknown Physician Consults: 01/06/21 03:36 Consult to Infectious Diseases Routine Consulting Provider: Gricelda Rivero Reason for consultation: Bacteremia Has provider been notified: No 01/06/21 03:38 Addiction Medicine Routine Consulting Provider: Xiomara Louise Reason for consultation: Has left AMA multiple times. Frequent admission for DKA. ? SECT 35 Has provider been notified: No 01/06/21 14:37 Consult to General Surgery Routine Consulting Provider: Samuel Mcclelland Reason for consultation: Abscess of nose Has provider been notified: Yes 01/08/21 07:34 Consult to Wound Care Routine Consulting Provider: Rosie Cervantes Reason for consultation: Wounds to body DS: Diagnosis Discharge Diagnosis (1) Skin lesions: Status: Acute (2) Abscess of face: Status: Acute DS: Summary Hospital Course Hospital Course: The patient is a 25-year-old female with a past medical history of diabetes, anxiety, IV drug use, and Staph aureus bacteremia. ?(I?ve been unable to find conclusive evidence that she?s actually had echocardiographically confirmed endocarditis.? See further comment below)? She?s had mult visits to this hospital, most commonly leaving AMA.? At her last admission two and a half weeks ago on December 19, blood cultures drawn in the ED came back positive at 13 hours for MRSA.? She left the hospital AMA before repeat blood cultures or an echocardiogram could be done.? No antibiotics were prescribed for her on the outside, and in fact she told the hospitalist that if a prescription were sent to a pharmacy, she would not pick it up. HISTORY OF PRESENT ILLNESS:? The patient was BIBA to the ED late on Jan 05 after bystanders found her on the side of the road asking for help.? EMS reported POC was out of range high. In the emergency room, the patient was lethargic, barely opening eyes to painful stimuli.? She was? afebrile, tachycardic to 130s, normotensive, respiratory rate 17, sat?ing? 100% on room air.? Labs in the ED were notable for WBC 21, BUN/creatinine 36/2.8 (baseline about 16/0.7), sodium 135, potassium 5.1, bicarb 5, random glucose 1753, albumin 4.1.? Venous gas showed 7.08/18/-22. She was given 3 L of normal saline, Zosyn, vancomycin, 10 units of IVpush insulin, 20 units of subcut lispro, and Ativan 1 mg.? She was transferred to ICU for further care. In ICU, the patient was acutely ill and minimally responsive.? She required emergent intubation for airway protection.? A central line was placed for IV access.? She was treated with an insulin drip and LR in the usual fashion.? Vanco and Zosyn were continued. Chemistries the following morning were notable for iatrogenic hypernatremia, up to 158.? BUN/creatinine were almost back to baseline, acidosis was corrected, glucose down to 187.? Since then, she?s been on and off the insulin drip, and required D5W and 1/2 NS to bring her sodium level back to normal.? We kept her intubated for two days waiting for blood cultures to come back, in case she needed a GEETHA.? We added Seroquel and prn Zyprexa to control her behavior.? She had a nasal MRSA cellulitis for which we put her on a 10 day course of oral doxycycline, and a trichomonas vaginal discharge for which we put her on a 7 day course of oral Flagyl. A section 12 order was put in her chart on Jan 07.? BC?s yesterday morning (at 60 hours) were still negative, so she was extubated.? The insulin drip was d/c?d yesterday morning and she was started on Lantus 30u qAM plus SS insulin.? She pulled her central line so we left her with no IV access. This morning she?s fully awake.? Ate about half her breakfast.? She?s oriented x 3.? Wants to leave the hospital.? The cellulitis on her nose is about 50% better than yesterday.? Heart rate 80s, sinus rhythm, blood pressure 122/82.? RR on room air is low 20s, Sat is 100%.? She?s afebrile.? No jugular venous distention with the head of the bed at 20-30 degrees.? Abdomen is benign, she has no peripheral edema.? She is grossly cachectic and weighs about 45 kg. LABORATORY DATA::? As below.? Notably, Sodium is finally normalized, BUN/creatinine down to baseline, glucose 234. Echocardiogram on 01/06 done by the tech.? Findings (interpretation by Dr. Niño):? Normal LV and RV chamber size and function.? Normal sized inferior vena cava with normal inspiratory collapse.? No vegetation seen on this study. IMPRESSION: ?1. IV drug abuse. ?2. Severe protein calorie malnutrition.? I?ve asked the bowling alley mechanic to put her on a ?no-added sweets? diet.? There?s no point in putting her on a diabetic diet. ?3. Terrible dentition. ?4. DKA.? Resolved.? F/u with Lantus and SSI. ?5. Acute kidney injury.? 2? hypovolemia.? Resolved post vol resuscitation. ?6. Hypernatremia (iatrogenic).? Resolved. ?7. ID:? She had a marked leukocytosis on admission, that clearly resolved with antibiotics.? Given her bacteremia on 12/19/20, it was our assumption that she might well have endocarditis.? But blood cultures and the echo were negative. ?8. Has she ever had proven endocarditis?:? She previously had negative echocar diograms on 09/24/20 and 09/25/20.? On 08/17/20, she was admitted to the hospital for DKA and was found to have an abscess in her neck, thought to be at the site of a previous CVC.? That abscess grew out Strep pyogenes, but no blood cultures were done.? An echo was done on 08/18 however, which showed a ?large, mass like structure in the right atrium; measuring 3.5 x 2cm; could be vegetation or thrombus; attachment point is not clear, possibly lateral part of tricuspid annulus; in some views, there is protrusion into the tricuspid plane. ?Also, a small density noted in the non coronary cusp of the aortic valve that could be vegetation.? The patient signed out of the hospital the next day however, before any further action could be taken. ? The next time the patient had blood cultures drawn here was on 09/11/2020.? One set of those blood cultures came back positive for Elly.? She had another two sets of blood cultures drawn on 09/13/20, both of which were negative.? She next had two sets of blood cultures drawn on 09/23/2020, one set of which grew MRSA.? She next had two sets of blood cultures drawn on , both of which were negative and then another two sets on 11/04/2020 both of which were negative. ? In summary, none of her positive blood cultures have persisted, or been associated with a positive echo finding.? And the one time she did have a positive echo finding, the finding itself was questionable, and it was not associated with positive blood cultures.? So I don?t see evidence that I can point to that conclusively indicates that she?s ever had endocarditis. ?9. Nose cellulitis.? Cultured MRSA, sensitive to tetracycline.? We started her yesterday on doxycycline 100 mg po bid x 10 days.? It goes without saying that once she leaves the hospital, she?s unlikely to finish the course of abx. ?10. Vaginal infection/? STD.? She?s been treated for both yeast and CTNG.? Serology came back positive for trichomonas, so she should continue her course of Flagyl 500 mg bid x 7 days, which we started on 01/07.? Ditto the above comment. ?11. Neuro/psych.? According to her Med Rec, she takes Seroquel at home.? We?ll continue her on Seroquel 100 mg bid, and add Zyprexa 5mg q4hr prn (can be given IM or po).? Discussed at length with Roselyn Page.? Section 12 is done.? Holding the patient pending psychiatry evaluation. Time Spent with Patient Time attestation: Total time spent providing and/or coordinating discharge services: Discharge coordination time: Greater than 30 minutes Quality: Stroke Does the patient have a stroke diagnosis?: No Physical Exam Vital Signs: Vital Signs: Last Vital Signs Temp 99.0 F 01/09/21 16:00 Pulse 85 01/09/21 16:00 Resp 16 01/09/21 16:00 BP 122/71 01/09/21 16:00 Pulse Ox 100 01/09/21 16:00 Body Mass Index 20.1 DS: Data Data Completed and Pending Completed studies during hospitalization [Text1]: Procedures Detoxification Services for Substance Abuse Treatment (09/24/20) Drainage of Neck Skin, External Approach (08/17/20) Insertion of Infusion Device into Superior Vena Cava, Percutaneous Approach (08/06/20) Labs on day of discharge: Laboratory Results - last 24 hr 01/08/21 01/09/21 01/09/21 21:18 05:24 05:24 WBC 6.7 RBC 3.72 L Hgb 9.7 L Hct 30.4 L MCV 81.7 MCH 26.1 L MCHC 31.9 RDW 17.4 H Plt Count 160 MPV 9.1 L Absolute Nucleated RBC 0.000 Nucleated RBC % (auto) 0.0 Sodium 140 Potassium 3.6 Chloride 110 H Carbon Dioxide 25 Anion Gap 9 L BUN 6 L Creatinine 0.59 Estim Creat Clear Calc 111.2 Estimated GFR > 60 POC Glucose 238 H Random Glucose 234 H Calcium 8.0 L Phosphorus 3.1 Magnesium 1.6 01/09/21 01/09/21 01/09/21 07:13 11:08 15:30 WBC RBC Hgb Hct MCV MCH MCHC RDW Plt Count MPV Absolute Nucleated RBC Nucleated RBC % (auto) Sodium Potassium Chloride Carbon Dioxide Anion Gap BUN Creatinine Estim Creat Clear Calc Estimated GFR POC Glucose 312 H 198 H 78 Random Glucose Calcium Phosphorus Magnesium 01/09/21 16:41 WBC RBC Hgb Hct MCV MCH MCHC RDW Plt Count MPV Absolute Nucleated RBC Nucleated RBC % (auto) Sodium Potassium Chloride Carbon Dioxide Anion Gap BUN Creatinine Estim Creat Clear Calc Estimated GFR POC Glucose 108 Random Glucose Calcium Phosphorus Magnesium Preliminary micro results at discharge 01/05/21 23:52 Blood Culture - Preliminary Blood - Venous No growth after 48 hours. 01/05/21 23:48 Blood Culture - Preliminary Blood - Venous No growth after 48 hours. Discharge Plan Discharge Anticipated Discharge Date/Time: 01/09/21 17:24 Patient Disposition: Xfer Psychiatric Hosp Discharge Diagnosis: DKA, substance abuse, Nasal cellulitis, trichomonas Referrals: Physician,Unknown [Primary Care Provider] - 1 Week Discharge Medications: New Lantus U-100 Insulin 100 unit/mL Solution 30 unit subcut DAILY Qty: 10 RF: 0 metronidazole 500 mg Tablet 500 mg PO BID Qty: 30 RF: 0 quetiapine 100 mg Tablet 100 mg PO BID Qty: 30 RF: 0 magnesium oxide 400 mg (241.3 mg magnesium) Tablet 400 mg PO TID Qty: 30 RF: 0 mupirocin 2 % Ointment 1 appl topical DAILY Qty: 22 RF: 0 insulin lispro [Humalog U-100 Insulin] 100 unit/mL Solution See Protocol unit subcut QIDACHS 10 Days Qty: 10 RF: 0 doxycycline hyclate 100 mg Tablet 100 mg PO Q12H Qty: 20 RF: 0 Discontinued insulin lispro [Humalog U-100 Insulin] 100 unit/mL Solution See Protocol sliding scale dose SUBCUT USEASDIRECTD RF: 0 Lantus Solostar U-100 Insulin 100 unit/mL (3 mL) Insulin Pen 30 unit SUBCUT BEDTIME RF: 0 quetiapine 100 mg tablet 0.5 - 1 tab PO BEDTIME PRN (Reason: Agitation) RF: 0 quetiapine 50 mg tablet 0.5 - 1 tab PO BID PRN (Reason: Agitation) RF: 0 Discharge Orders: Discharge Order (Routine); Ordered 01/09/21 Ordered By: Nguyễn Bojorquez Diet: advance to usual diet and diabetic diet Activity on Discharge: As tolerated Stand Alone Forms: Patient Portal Discharge page
[2021-01-09 18:44] LABS: Glucose, Whole Blood 202 mg/dL (60-115)
[2021-01-09 20:00] VITALS: PULSE 82; RESP 18; TEMP 36.9; O2SAT 100
--- NOTE | 2021-01-09 21:51 | PC.NURSE ---
Nurse to nurse given to M3 nurse.
[2021-01-09 21:58] LABS: Glucose, Whole Blood 156 mg/dL (60-115)
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
== END 2021-01-09 22:13 | DRG 420 ==
LOC: HO.ED 01-06 00:57 → HO.ICU 01-06 01:00 → HO.IMC 01-08 13:59 → HO.ICU 01-08 14:30
PROVIDERS: Anesthesiology; Physician Assistant Medical; Admitting Provider Registered Nurse Community Health; Emergency Provider Internal Medicine; Visit Provider Registered Nurse Community Health
DX: E10.10 Type 1 diabetes mellitus with ketoacidosis without coma (principal); E43 Unspecified severe protein-calorie malnutrition; N17.9 Acute kidney failure, unspecified; R78.81 Bacteremia; E87.0 Hyperosmolality and hypernatremia; F11.20 Opioid dependence, uncomplicated; D72.829 Elevated white blood cell count, unspecified; A59.01 Trichomonal vulvovaginitis; F19.10 Other psychoactive substance abuse, uncomplicated; J34.0 Abscess, furuncle and carbuncle of nose; E87.6 Hypokalemia; F41.9 Anxiety disorder, unspecified; F32.9 Major depressive disorder, single episode, unspecified; Z68.20 Body mass index [BMI] 20.0-20.9, adult; F43.10 Post-traumatic stress disorder, unspecified; F17.210 Nicotine dependence, cigarettes, uncomplicated; Z71.6 Tobacco abuse counseling; B95.61 Methicillin susceptible Staphylococcus aureus infection as the cause of diseases classified elsewhere; Z20.822 Contact with and (suspected) exposure to COVID-19; Z79.899 Other long term (current) drug therapy
CPT/HCPCS: 36415; 70450; 71045; 80048; 80053; 80076; 80307; 81001; 81003; 81025; 82009; 82803; 82947; 83605; 83690; 83735; 84100; 84145; 84484; 85025; 85027; 86140; 87040; 87071; 87077; 87186; 87205; 87480; 87491; 87510; 87591; 87635; 87660; 93005; 93308; 94002; 94003; 96361; 96365; 96375; 99285; 99291; C1758; J0696; J2060; J2250; J2543; J3010; J3370; J3475

== ENCOUNTER 2021-01-09 22:18 | Inpatient (IN) | payer OTHER, SELFPAY ==
--- NOTE | 2021-01-10 | ECG_ITS ---
Test Reason : QTc prolongation Blood Pressure : / mmHG Vent. Rate : 108 BPM Atrial Rate : 108 BPM P-R Int : 130 ms QRS Dur : 072 ms QT Int : 314 ms P-R-T Axes : 061 063 027 degrees QTc Int : 420 ms Sinus tachycardia Nonspecific T wave abnormality Abnormal ECG When compared with ECG of 06-JAN-2021 20:12, QT has shortened Referred By: Candi Hensley Electronically Signed By:RUPESH CISNEROS
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
[2021-01-10 03:06] LABS: Glucose, Whole Blood 251 mg/dL (60-115)
[2021-01-10 05:55] VITALS: BMI 15.0
[2021-01-10 08:18] LABS: Glucose, Whole Blood 374 mg/dL (60-115)
[2021-01-10] MEDS: metroNIDAZOLE 500 MG TABLET PO ×2 (08:37→21:34)
[2021-01-10] MEDS: QUEtiapine Fumarate 100 MG TABLET PO ×2 (08:37→21:34)
[2021-01-10] MEDS: Magnesium Oxide 400 MG TABLET PO (08:37)
[2021-01-10] MEDS: Insulin Lispro 100 UNIT/ML 3 ML VIAL SUBCUT ×4 (08:38→21:44)
[2021-01-10] MEDS: Insulin Glargine,Hum.rec.anlog 100 UNIT/ML 10 ML VIAL 30 UNIT SUBCUT (08:38)
--- NOTE | 2021-01-10 09:06 | P.PNPSI_ITS ---
Subjective Subjective Date of Service: 01/10/21 Reason For Visit: PTSD Subjective Notes: Conditional Voluntary Interim History: Patient was seen in rounds today. She was transferred from the ICU after she was admitted there for marked elevation of her blood sugars. Her blood sugar is also elevated this morning and nursing will contact the hospitalist. Current records and medications were reviewed. She has severe watery diarrhea which she has had even when she was in the ICU. This may be related to her to antibiotics or part of her withdrawal symptoms. She is not currently on an opiate withdrawal protocol which I placed an added some comfort medications including clonidine, prochlorperazine and Imodium. She has not been sleeping well either. No other changes were made today Review of Systems Review of Systems Review of systems is positive for severe diarrhea, some possible withdrawal symptoms. Mental Status Exam Mental Status Exam Narrative: In today's visit she is alert, oriented and pleasant. Speech is soft-spoken. Moderate eye contact. Affect is appropriate and constricted. No tremulousness or overt signs of withdrawals. No signs of psychosis. No SI upon inquiry. Cognitively intact. Judgment is intact Diagnostics Vital Signs (24Hr): Body Mass Index 15.0 Labs Labs: Laboratory Results - last 48 hr 01/10/21 01/10/21 03:01 08:13 POC Glucose 251 H 374 H* Medications Medications Current Medications Acetaminophen (Acetaminophen 325 Mg Tablet) 650 mg PO Q6H PRN PRN Reason: Headache/Pain Mild Scale (1-3) Al Hydroxide/Mg Hydroxide (Magnesium Hydrox/Alum Hydrox 30 Ml Oral.Susp) 30 ml PO Q6H PRN PRN Reason: Heartburn/Nausea Doxycycline Hyclate (Doxycycline Hyclate 100 Mg Tablet) 100 mg PO Q12H [facility] Last Admin: 01/10/21 08:37 Dose: 100 mg Documented by: Hydroxyzine HCl (Hydroxyzine Hcl 25 Mg Tablet) 25 mg PO BEDTIME PRN PRN Reason: Anxiety Insulin Glargine (Insulin Glargine,Hum.Rec.Anlog 100 Unit/Ml 10 Ml Vial) 30 unit SUBCUT DAILY [facility] Last Admin: 01/10/21 08:38 Dose: 30 unit Documented by: Insulin Human Lispro (Insulin Lispro 100 Unit/Ml 3 Ml Vial) 0 unit SUBCUT QIDACHS [facility]; Protocol Last Admin: 01/10/21 08:38 Dose: 10 unit Documented by: Loperamide HCl (Loperamide Hcl 2 Mg Capsule) 2 mg PO Q4H PRN PRN Reason: Diarrhea Magnesium Hydroxide (Milk Of Magnesia 30 Ml Oral.Susp) 30 ml PO DAILY PRN PRN Reason: Constipation Magnesium Oxide (Magnesium Oxide 400 Mg Tablet) 400 mg PO TID [facility] Last Admin: 01/10/21 08:37 Dose: 400 mg Documented by: Metronidazole (Metronidazole 500 Mg Tablet) 500 mg PO BID [facility] Last Admin: 01/10/21 08:37 Dose: 500 mg Documented by: Quetiapine Fumarate (Quetiapine Fumarate 100 Mg Tablet) 100 mg PO BID [facility] Last Admin: 01/10/21 08:37 Dose: 100 mg Documented by: Trazodone HCl (Trazodone Hcl 50 Mg Tablet) 50 mg PO BEDTIME PRN PRN Reason: Insomnia Allergies Allergies Allergy/AdvReac Type Severity Reaction Status Date / Time No Known Allergies Allergy Verified 12/20/20 07:52 Assessment & Plan Assessment & Plan (1) Skin lesions: Status: Acute Code(s): L98.9 - Disorder of the skin and subcutaneous tissue, unspecified (2) Abscess of face: Status: Acute Code(s): L02.01 - Cutaneous abscess of face (3) Substance abuse: Status: Acute Code(s): F19.10 - Other psychoactive substance abuse, uncomplicated Assessment and Plan: Continue current regimen and plans with the addition of opiate withdrawal protocol. Comfort medications, mentioned above Greater than 50% of the session was spent on counseling and/or coordination of care Reason for contiued inpatient stay Substantial Risk for: other
[2021-01-10 12:05] LABS: Glucose, Whole Blood 287 mg/dL (60-115)
[2021-01-10 12:12] VITALS: BP 138/68; PULSE 116; RESP 16; TEMP 37; O2SAT 96
[2021-01-10 13:24] LABS: CDiff Gene PCR NEGATIVE (Negative)
[2021-01-10 15:17] VITALS: BP 110/64; PULSE 116
[2021-01-10] MEDS: cloNIDine HCL 0.1 MG TABLET PO (15:17)
[2021-01-10] MEDS: Acetaminophen 325 MG TABLET 650 MG PO (15:18)
[2021-01-10] MEDS: Loperamide HCl 2 MG CAPSULE PO (15:21)
[2021-01-10 16:46] LABS: Glucose, Whole Blood 198 mg/dL (60-115)
[2021-01-10 21:43] LABS: Glucose, Whole Blood 294 mg/dL (60-115)
[2021-01-10 22:02] VITALS: BP 116/79; PULSE 107; RESP 18; TEMP 37.4; O2SAT 95
[2021-01-11] MEDS: Insulin Glargine,Hum.rec.anlog 100 UNIT/ML 10 ML VIAL 30 UNIT SUBCUT (08:31)
[2021-01-11] MEDS: metroNIDAZOLE 500 MG TABLET PO ×2 (08:31→20:18)
--- NOTE | 2021-01-11 08:33 | HO.PSYCHPN ---
Subjective Subjective Date of Service: 01/11/21 Reason For Visit: PTSD Subjective Notes: 3 Day Interim History: Patient was seen in rounds today. She is doing better but yesterday was some scoring at 14 on her COW. The clonidine at 0.1 mg was not adequate so I increased it yesterday to 0.2 mg q.4 hours p.r.n.. She also was not eating too well and insure was ordered. In today's visit she talked about wanting to leave and I told her that I could not discharge her over the weekend. She has signed a 3 day notice already. Sleeping adequately. Vital signs have been adequate. No changes were made today. Magnesium was discontinued because of her other medications which interact. Review of Systems Review of Systems Review of systems is positive for diarrhea. Mental Status Exam Mental Status Exam Narrative: In today's visit she is alert, oriented and pleasant. Speech is soft-spoken. Moderate eye contact. Affect is appropriate and constricted. No tremulousness or overt signs of withdrawals. No signs of psychosis. No SI upon inquiry. Cognitively intact. Judgment is intact Diagnostics Vital Signs (24Hr): Vital Signs - 24 hr 01/10/21 12:12 01/10/21 15:17 01/10/21 22:02 Temperature 98.6 F 99.3 F Pulse Rate 116 H 116 H 107 H Respiratory Rate 16 18 Blood Pressure 138/68 110/64 116/79 Pulse Oximetry 96 95 Body Mass Index 15.0 Labs Labs: Laboratory Results - last 48 hr 01/10/21 01/10/21 01/10/21 03:01 08:13 12:01 POC Glucose 251 H 374 H* 287 H C. difficile Tox B Gene 01/10/21 01/10/21 01/10/21 16:42 21:33 Unknown POC Glucose 198 H 294 H C. difficile Tox B Gene NEGATIVE Medications Medications Current Medications Acetaminophen (Acetaminophen 325 Mg Tablet) 650 mg PO Q6H PRN PRN Reason: Headache/Pain Mild Scale (1-3) Last Admin: 01/10/21 15:18 Dose: 650 mg Documented by: Al Hydroxide/Mg Hydroxide (Magnesium Hydrox/Alum Hydrox 30 Ml Oral.Susp) 30 ml PO Q6H PRN PRN Reason: Heartburn/Nausea Clonidine HCl (Clonidine Hcl 0.2 Mg Tablet) 0.2 mg PO Q4H PRN; Protocol PRN Reason: withdrawal symptoms Doxycycline Hyclate (Doxycycline Hyclate 100 Mg Tablet) 100 mg PO Q12H [facility] Last Admin: 01/11/21 06:52 Dose: 100 mg Documented by: Hydroxyzine HCl (Hydroxyzine Hcl 25 Mg Tablet) 25 mg PO Q4H PRN PRN Reason: Anxiety Insulin Glargine (Insulin Glargine,Hum.Rec.Anlog 100 Unit/Ml 10 Ml Vial) 30 unit SUBCUT DAILY [facility] Last Admin: 01/10/21 08:38 Dose: 30 unit Documented by: Insulin Human Lispro (Insulin Lispro 100 Unit/Ml 3 Ml Vial) 0 unit SUBCUT QIDACHS [facility]; Protocol Last Admin: 01/10/21 21:44 Dose: 6 unit Documented by: Loperamide HCl (Loperamide Hcl 2 Mg Capsule) 2 mg PO Q4H PRN PRN Reason: Diarrhea Last Admin: 01/10/21 15:21 Dose: 2 mg Documented by: Magnesium Oxide (Magnesium Oxide 400 Mg Tablet) 400 mg PO TID [facility] Last Admin: 01/10/21 22:24 Dose: Not Given Documented by: Metronidazole (Metronidazole 500 Mg Tablet) 500 mg PO BID [facility] Last Admin: 01/10/21 21:34 Dose: 500 mg Documented by: Prochlorperazine Maleate (Prochlorperazine Maleate 5 Mg Tablet) 5 mg PO QID PRN PRN Reason: Nausea Quetiapine Fumarate (Quetiapine Fumarate 100 Mg Tablet) 100 mg PO BID [facility] Last Admin: 01/10/21 21:34 Dose: 100 mg Documented by: Trazodone HCl (Trazodone Hcl 50 Mg Tablet) 50 mg PO BEDTIME PRN PRN Reason: Insomnia Allergies Allergies Allergy/AdvReac Type Severity Reaction Status Date / Time No Known Allergies Allergy Verified 12/20/20 07:52 Assessment & Plan Assessment & Plan (1) Skin lesions: Status: Acute Code(s): L98.9 - Disorder of the skin and subcutaneous tissue, unspecified (2) Abscess of face: Status: Acute Code(s): L02.01 - Cutaneous abscess of face (3) Substance abuse: Status: Acute Code(s): F19.10 - Other psychoactive substance abuse, uncomplicated Assessment and Plan: Continue current regimen and plans Greater than 50% of the session was spent on counseling and/or coordination of care Reason for contiued inpatient stay Substantial Risk for: other
[2021-01-11 08:45] LABS: Glucose, Whole Blood 390 mg/dL (60-115)
[2021-01-11 09:00] VITALS: BP 112/60; PULSE 76; RESP 14; TEMP 36.9; O2SAT 100
[2021-01-11] MEDS: Insulin Lispro 100 UNIT/ML 3 ML VIAL SUBCUT ×4 (09:07→20:43)
[2021-01-11 11:50] LABS: Glucose, Whole Blood 366 mg/dL (60-115)
[2021-01-11 11:57] VITALS: PULSE 85
[2021-01-11 12:09] VITALS: BP 112/68; PULSE 85
[2021-01-11] MEDS: cloNIDine HCL 0.2 MG TABLET PO (12:09)
[2021-01-11] MEDS: Mupirocin 2 % Oint 22 GM TUBE 1 APPL TOPICAL (12:44)
[2021-01-11] MEDS: Loperamide HCl 2 MG CAPSULE PO (13:25)
[2021-01-11] MEDS: Acetaminophen 325 MG TABLET 650 MG PO (13:25)
[2021-01-11 17:22] LABS: Glucose, Whole Blood 242 mg/dL (60-115)
[2021-01-11] MEDS: QUEtiapine Fumarate 100 MG TABLET PO (20:18)
[2021-01-11 20:39] LABS: Glucose, Whole Blood 213 mg/dL (60-115)
[2021-01-11] MEDS: traZODone HCL 50 MG TABLET PO (20:43)
[2021-01-11 20:51] VITALS: BP 97/53; PULSE 89; TEMP 34.9; O2SAT 100
[2021-01-12 06:16] LABS: Glucose, Whole Blood 275 mg/dL (60-115)
[2021-01-12] MEDS: Insulin Lispro 100 UNIT/ML 3 ML VIAL SUBCUT ×3 (06:23→13:11)
[2021-01-12 08:49] LABS: Glucose, Whole Blood 231 mg/dL (60-115)
[2021-01-12] MEDS: QUEtiapine Fumarate 100 MG TABLET PO ×2 (11:16→23:46)
[2021-01-12] MEDS: metroNIDAZOLE 500 MG TABLET PO ×2 (11:17→23:46)
[2021-01-12] MEDS: Insulin Glargine,Hum.rec.anlog 100 UNIT/ML 10 ML VIAL 30 UNIT SUBCUT (11:18)
[2021-01-12 13:10] LABS: Glucose, Whole Blood 243 mg/dL (60-115)
--- NOTE | 2021-01-12 13:10 | MHC.RECOVRN ---
T/w met with pt to provide support while on M3. Pt reports desire to leave, states I came up voluntarily and stayed the weekend, I want to go. Pt reports desire to return to [employer] and believes this is a dependable plan. Pt is interested in linkage to a PCP and dentist. Pt is not interested in MOUD, states those things just make me want to use. 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 Pt states I've made it through the withdrawal, I don't want to leave to use. I've just been here so long. Pt reports cravings for cigarettes, RN aware and ordering NRT. Pt requesting to meet with t/w and SW together, SW aware. T/w available as needed.
--- NOTE | 2021-01-12 13:36 | P.PNPSI_ITS ---
Subjective Subjective Date of Service: 01/12/21 Reason For Visit: PTSD Interim History: pt states she would like to discharge today. states her family is in [place] and she would like to go home. notes chart [place], asks if pt has been in touch with her mother. pt states she has not. MD asks her plan to get to camp; pt states she would take the bus. MD expresses concern that her plan is not adequately supportive of her treatment and recovery. pt states she is an adult and declines the help i have to offer. she states she will not engage in a rehabilitation program. she asserts she should be able to leave today. that she has signed a 3-day notice is discussed. MD informs her she will likely be discharged by tuesday at the latest. denies SI/HI. doesn't want to take any medications bcse taking any medications causes her to want to get high. denies withdrawal Sx. Mental Status Exam Mental Status Exam Narrative: In today's visit she is alert, oriented and irritable. Speech is nml loudness, incr amount. good eye contact. Affect is appropriate and constricted. No tremulousness or overt signs of withdrawals. No signs of psychosis. No SI upon inquiry. Cognitively intact. Judgment is impaired. Diagnostics Vital Signs (24Hr): Vital Signs - 24 hr 01/11/21 20:51 Temperature 94.9 F L Pulse Rate 89 Blood Pressure 97/53 L Pulse Oximetry 100 Body Mass Index 15.0 Labs Labs: Laboratory Results - last 48 hr 01/10/21 01/10/21 01/11/21 16:42 21:33 08:35 POC Glucose 198 H 294 H 390 H* 01/11/21 01/11/21 01/11/21 11:44 17:17 20:31 POC Glucose 366 H* 242 H 213 H 01/12/21 01/12/21 01/12/21 06:12 08:45 12:44 POC Glucose 275 H 231 H 243 H Medications Medications Current Medications Acetaminophen (Acetaminophen 325 Mg Tablet) 650 mg PO Q6H PRN PRN Reason: Headache/Pain Mild Scale (1-3) Last Admin: 01/11/21 13:25 Dose: 650 mg Documented by: Al Hydroxide/Mg Hydroxide (Magnesium Hydrox/Alum Hydrox 30 Ml Oral.Susp) 30 ml PO Q6H PRN PRN Reason: Heartburn/Nausea Clonidine HCl (Clonidine Hcl 0.2 Mg Tablet) 0.2 mg PO Q4H PRN; Protocol PRN Reason: withdrawal symptoms Last Admin: 01/11/21 12:09 Dose: 0.2 mg Documented by: Doxycycline Hyclate (Doxycycline Hyclate 100 Mg Tablet) 100 mg PO Q12H [facility] Last Admin: 01/12/21 06:23 Dose: 100 mg Documented by: Hydroxyzine HCl (Hydroxyzine Hcl 25 Mg Tablet) 25 mg PO Q4H PRN PRN Reason: Anxiety Insulin Glargine (Insulin Glargine,Hum.Rec.Anlog 100 Unit/Ml 10 Ml Vial) 30 unit SUBCUT DAILY [facility] Last Admin: 01/12/21 11:18 Dose: 30 unit Documented by: Insulin Human Lispro (Insulin Lispro 100 Unit/Ml 3 Ml Vial) 0 unit SUBCUT QIDACHS [facility]; Protocol Last Admin: 01/12/21 11:17 Dose: 8 unit Documented by: Loperamide HCl (Loperamide Hcl 2 Mg Capsule) 2 mg PO Q4H PRN PRN Reason: Diarrhea Last Admin: 01/11/21 13:25 Dose: 2 mg Documented by: Metronidazole (Metronidazole 500 Mg Tablet) 500 mg PO BID [facility] Last Admin: 01/12/21 11:17 Dose: 500 mg Documented by: Mupirocin (Mupirocin 2 % Oint 22 Gm Tube) 1 appl TOPICAL DAILY [facility] Last Admin: 01/11/21 12:44 Dose: 1 appl Documented by: Prochlorperazine Maleate (Prochlorperazine Maleate 5 Mg Tablet) 5 mg PO QID PRN PRN Reason: Nausea Quetiapine Fumarate (Quetiapine Fumarate 100 Mg Tablet) 100 mg PO BID [facility] Last Admin: 01/12/21 11:16 Dose: 100 mg Documented by: Trazodone HCl (Trazodone Hcl 50 Mg Tablet) 50 mg PO BEDTIME PRN PRN Reason: Insomnia Last Admin: 01/11/21 20:43 Dose: 50 mg Documented by: Allergies Allergies Allergy/AdvReac Type Severity Reaction Status Date / Time No Known Allergies Allergy Verified 12/20/20 07:52 Assessment & Plan Assessment & Plan (1) Skin lesions: Status: Acute Code(s): L98.9 - Disorder of the skin and subcutaneous tissue, unspecified (2) Abscess of face: Status: Acute Code(s): L02.01 - Cutaneous abscess of face (3) Substance abuse: Status: Acute Code(s): F19.10 - Other psychoactive substance abuse, uncomplicated Assessment and Plan: Continue current regimen; refer for section 35 tomorrow. Greater than 50% of the session was spent on counseling and/or coordination of care Reason for contiued inpatient stay Substantial Risk for: harm to self, inability to function, rapid decompensation and med/psych decompensation
--- NOTE | 2021-01-12 15:22 | MHC.RECOVRN ---
Met with pt to discuss MOUD. Pt now requesting Suboxone. Pt reports cravings, denies withdrawal symptoms. Pt states I want to leave, go do a trick, and get some drugs. Discussed with Xiomara Louise APRN.
[2021-01-12 16:07] VITALS: BMI 18.1
[2021-01-12] MEDS: Buprenorphine/Naloxone 8/2 mg FILM 1 FILM SUBLINGUAL (16:11)
[2021-01-12] MEDS: Nicotine 21 MG PATCH.TD24 TRANSDERMA (16:11)
--- NOTE | 2021-01-12 16:24 | MHC.CLN ---
NUTRITION PATIENT REQUESTING VANILLA ENSURE INSTEAD OF GLUCERNA. ADVISED THAT GLUCERNA IS A BETTER CHOICE FOR DIABETIC. CHOOSES NOT TO FOLLOW DIABETIC DIET. ORDERED ENSURE TID TO PROVIDE 1050 KCAL, 60 G PROTEIN. ASKED FOR DOUBLE PORTION OF PROTEIN AT MEALS. ADVISED KITCHEN THAT OK TO SEND DOUBLE PORTION OF PROTEIN.
[2021-01-12 16:31] VITALS: BP 114/71; PULSE 131
[2021-01-12] MEDS: cloNIDine HCL 0.2 MG TABLET PO (16:31)
[2021-01-12 16:51] LABS: Glucose, Whole Blood 142 mg/dL (60-115)
[2021-01-12] MEDS: LORazepam 1 MG TABLET PO (18:53)
[2021-01-12] MEDS: Nicotine Polacrilex Lozenge 4 MG LOZENGE BUCCAL (18:53)
[2021-01-12] MEDS: traZODone HCL 50 MG TABLET PO (23:46)
[2021-01-13] MEDS: QUEtiapine Fumarate 100 MG TABLET PO ×2 (11:04→21:52)
[2021-01-13] MEDS: Buprenorphine/Naloxone 8/2 mg FILM 1 FILM SUBLINGUAL (11:04)
[2021-01-13] MEDS: metroNIDAZOLE 500 MG TABLET PO ×2 (11:04→21:52)
[2021-01-13] MEDS: Nicotine 21 MG PATCH.TD24 TRANSDERMA (11:05)
[2021-01-13 11:18] LABS: Glucose, Whole Blood 194 mg/dL (60-115)
[2021-01-13] MEDS: Insulin Glargine,Hum.rec.anlog 100 UNIT/ML 10 ML VIAL 30 UNIT SUBCUT (11:38)
[2021-01-13] MEDS: LORazepam 1 MG TABLET PO ×3 (11:42→21:52)
[2021-01-13 12:41] LABS: Glucose, Whole Blood 382 mg/dL (60-115)
[2021-01-13] MEDS: Insulin Lispro 100 UNIT/ML 3 ML VIAL SUBCUT (12:47)
[2021-01-13 16:00] VITALS: PULSE 85
--- NOTE | 2021-01-13 16:37 | HO.PSYCHPN ---
Subjective Subjective Date of Service: 01/13/21 Reason For Visit: PTSD Interim History: pt found lying in her bed, unclear if asleep or not. rousable after several louder than conversational hailings. appears sickly, tired. states she felt better from the suboxone and also the ativan she has received. reports someone from outpatient clinic saw her and told her she would be getting suboxone from them. MD was unaware and expressed as much. MD informed her he had no clear information regarding her discharge time. she had no further complaints or requests and was left to rest once again. per staff, more visible, took meds, slept well. refused VS, FSBS, insulin this morning. Mental Status Exam Mental Status Exam Narrative: covered in hoodie and blanket, cooperative, appears sleepy. no PMA. Speech is nml loudness, decr rate and amount. thoughts linear and logical. fair eye contact. Affect is appropriate and constricted. No tremulousness or overt signs of withdrawal. No signs of psychosis. Cognitively intact. Judgment is impaired. Diagnostics Vital Signs (24Hr): Body Mass Index 18.1 Labs Labs: Laboratory Results - last 48 hr 01/11/21 01/11/21 01/12/21 17:17 20:31 06:12 POC Glucose 242 H 213 H 275 H 01/12/21 01/12/21 01/12/21 08:45 12:44 16:47 POC Glucose 231 H 243 H 142 H 01/13/21 01/13/21 11:14 12:37 POC Glucose 194 H 382 H* Medications Medications Current Medications Acetaminophen (Acetaminophen 325 Mg Tablet) 650 mg PO Q6H PRN PRN Reason: Headache/Pain Mild Scale (1-3) Last Admin: 01/11/21 13:25 Dose: 650 mg Documented by: Al Hydroxide/Mg Hydroxide (Magnesium Hydrox/Alum Hydrox 30 Ml Oral.Susp) 30 ml PO Q6H PRN PRN Reason: Heartburn/Nausea Buprenorphine/Naloxone (Buprenorphine/Naloxone 8/2 Mg Film) 1 film SUBLINGUAL DAILY [facility] Last Admin: 01/13/21 11:04 Dose: 1 film Documented by: Clonidine HCl (Clonidine Hcl 0.2 Mg Tablet) 0.2 mg PO Q4H PRN; Protocol PRN Reason: withdrawal symptoms Last Admin: 01/12/21 16:31 Dose: 0.2 mg Documented by: Doxycycline Hyclate (Doxycycline Hyclate 100 Mg Tablet) 100 mg PO Q12H [facility] Last Admin: 01/13/21 11:04 Dose: 100 mg Documented by: Hydroxyzine HCl (Hydroxyzine Hcl 25 Mg Tablet) 25 mg PO Q4H PRN PRN Reason: Anxiety Insulin Glargine (Insulin Glargine,Hum.Rec.Anlog 100 Unit/Ml 10 Ml Vial) 30 unit SUBCUT DAILY [facility] Last Admin: 01/13/21 11:38 Dose: 30 unit Documented by: Insulin Human Lispro (Insulin Lispro 100 Unit/Ml 3 Ml Vial) 0 unit SUBCUT QIDACHS [facility]; Protocol Last Admin: 01/13/21 12:47 Dose: 14 unit Documented by: Loperamide HCl (Loperamide Hcl 2 Mg Capsule) 2 mg PO Q4H PRN PRN Reason: Diarrhea Last Admin: 01/11/21 13:25 Dose: 2 mg Documented by: Metronidazole (Metronidazole 500 Mg Tablet) 500 mg PO BID [facility] Last Admin: 01/13/21 11:04 Dose: 500 mg Documented by: Mupirocin (Mupirocin 2 % Oint 22 Gm Tube) 1 appl TOPICAL DAILY [facility] Last Admin: 01/13/21 12:08 Dose: Not Given Documented by: Nicotine (Nicotine 21 Mg Patch.Td24) 21 mg TRANSDERMA DAILY [facility] Last Admin: 01/13/21 11:05 Dose: 21 mg Documented by: Nicotine Polacrilex (Nicotine Polacrilex Lozenge 4 Mg Lozenge) 4 mg BUCCAL Q2H PRN PRN Reason: Nicotine Cravings Last Admin: 01/12/21 18:53 Dose: 4 mg Documented by: Prochlorperazine Maleate (Prochlorperazine Maleate 5 Mg Tablet) 5 mg PO QID PRN PRN Reason: Nausea Quetiapine Fumarate (Quetiapine Fumarate 100 Mg Tablet) 100 mg PO BID [facility] Last Admin: 01/13/21 11:04 Dose: 100 mg Documented by: Trazodone HCl (Trazodone Hcl 50 Mg Tablet) 50 mg PO BEDTIME PRN PRN Reason: Insomnia Last Admin: 01/12/21 23:46 Dose: 50 mg Documented by: Allergies Allergies Allergy/AdvReac Type Severity Reaction Status Date / Time No Known Allergies Allergy Verified 12/20/20 07:52 Assessment & Plan Assessment & Plan (1) Skin lesions: Status: Acute Code(s): L98.9 - Disorder of the skin and subcutaneous tissue, unspecified (2) Abscess of face: Status: Acute Code(s): L02.01 - Cutaneous abscess of face (3) Substance abuse: Status: Acute Code(s): F19.10 - Other psychoactive substance abuse, uncomplicated Assessment and Plan: Continue current regimen; refer for section 35 tomorrow. Greater than 50% of the session was spent on counseling and/or coordination of care Reason for contiued inpatient stay Substantial Risk for: harm to self, inability to function and med/psych decompensation
[2021-01-13 16:42] VITALS: BP 101/77; PULSE 95
[2021-01-13] MEDS: cloNIDine HCL 0.2 MG TABLET PO (16:42)
[2021-01-13] MEDS: hydrOXYzine HCL 25 MG TABLET PO (16:42)
[2021-01-13 16:50] LABS: Glucose, Whole Blood 187 mg/dL (60-115)
[2021-01-13] MEDS: Nicotine Polacrilex Lozenge 4 MG LOZENGE BUCCAL (17:11)
[2021-01-13 18:00] VITALS: RESP 14
--- NOTE | 2021-01-13 21:58 | PC.NURSE ---
REFUSED poc AND REFUSED INSULIN
[2021-01-14] MEDS: traZODone HCL 50 MG TABLET PO (00:30)
[2021-01-14] MEDS: hydrOXYzine HCL 25 MG TABLET PO ×2 (00:30→09:32)
[2021-01-14 06:00] VITALS: BP 106/70; PULSE 101; RESP 18; TEMP 36.6; O2SAT 96
[2021-01-14 07:53] LABS: Glucose, Whole Blood 178 mg/dL (60-115)
[2021-01-14 08:00] VITALS: PULSE 82
[2021-01-14] MEDS: Buprenorphine/Naloxone 8/2 mg FILM 1 FILM SUBLINGUAL (08:08)
[2021-01-14] MEDS: Nicotine 21 MG PATCH.TD24 TRANSDERMA (08:08)
[2021-01-14] MEDS: metroNIDAZOLE 500 MG TABLET PO (08:08)
[2021-01-14] MEDS: QUEtiapine Fumarate 100 MG TABLET PO (08:08)
[2021-01-14] MEDS: Insulin Glargine,Hum.rec.anlog 100 UNIT/ML 10 ML VIAL 30 UNIT SUBCUT (09:32)
[2021-01-14] MEDS: Insulin Lispro 100 UNIT/ML 3 ML VIAL SUBCUT (09:32)
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
== END 2021-01-14 11:17 | disposition other institution (70) | DRG 754 ==
PROVIDERS: Internal Medicine; Admitting Provider Psychiatry & Neurology Psychiatry; Visit Provider Social Worker
DX: F32.9 Major depressive disorder, single episode, unspecified (principal); F11.20 Opioid dependence, uncomplicated; E10.9 Type 1 diabetes mellitus without complications; F14.10 Cocaine abuse, uncomplicated; F17.210 Nicotine dependence, cigarettes, uncomplicated; L02.01 Cutaneous abscess of face; F19.10 Other psychoactive substance abuse, uncomplicated; F41.9 Anxiety disorder, unspecified; L98.9 Disorder of the skin and subcutaneous tissue, unspecified; Z71.6 Tobacco abuse counseling; Z79.899 Other long term (current) drug therapy
CPT/HCPCS: 36415; 82947; 87045; 87046; 87493; 93005

== ENCOUNTER 2021-04-15 14:03 | Inpatient (IN) | payer MEDICAID, SELFPAY ==
[2021-04-15] VITALS (8 sets, daily range): BP systolic 65–122; BP diastolic 30–72; PULSE 82–111; RESP 20–30; O2SAT 98–100; BMI 18.3; BMI 19.0
--- NOTE | ~2021-04-15 | XR_ITS ---
EXAMINATION: XR CHEST CLINICAL INFORMATION: Evaluation for right-sided IJ central line placement COMPARISON: None TECHNIQUE: Frontal view of the chest was obtained. FINDINGS: Right-sided IJ line placed with its tip at the junction of the SVC and right atrium. There is no pneumothorax. Lungs clear. Heart and pulmonary vessels are normal. Note is made of bilateral nipple piercings. XR/XR chest 1V IMPRESSION: Right-sided central line placed as described.
--- NOTE | ~2021-04-15 | XR_ITS ---
EXAMINATION: XR CHEST CLINICAL INFORMATION: Status post ET tube and OG tube placement COMPARISON: April 15, 2021 TECHNIQUE: AP portable view of the chest was obtained. FINDINGS: Since previous study endotracheal tube has been placed with tip approximately 2 cm above the miguel ángel. Enteric catheter seen traversing to the stomach. Right internal jugular central venous catheter again seen with its tip in the upper right atrium. No pneumothorax identified. No pleural effusion. Heart normal size. No significant parenchymal disease is identified. Is some left lower lobe density present likely representing mild atelectasis. XR/XR chest 1V IMPRESSION: Endotracheal tube with tip approximately 2 cm above the miguel ángel. Nasogastric tube seen traversing to the stomach. No significant acute parenchymal disease.
--- NOTE | ~2021-04-15 | XR_ITS ---
EXAMINATION: XR HIP, RIGHT CLINICAL INFORMATION: Fall. Pain. COMPARISON: None TECHNIQUE: Two views of the right hip. FINDINGS: Bone alignment is normal. No fracture or dislocation is seen. The hip joint is normal. There is an IUD in the pelvis. XR/XR hip RT 1V IMPRESSION: Normal right hip.
--- NOTE | ~2021-04-15 | XR_ITS ---
EXAMINATION: XR LUMBOSACRAL SPINE CLINICAL INFORMATION: Fall. Pain. COMPARISON: None TECHNIQUE: AP view of the lumbosacral spine. Patient refused additional imaging. FINDINGS: Bone alignment is normal. No fracture or dislocation. XR/XR lumbar spine 1V IMPRESSION: Limited exam. No fracture seen.
--- NOTE | 2021-04-15 14:27 | PC.NURSE ---
clothes locked in decon by security
--- NOTE | 2021-04-15 14:30 | ED.OVERDOSE ---
HPI - Overdose General Chief Complaint: Overdose Stated Complaint: OD,HIGH BS Time Seen by Provider: 04/15/21 14:21 Source: patient, EMS, RN notes reviewed and old records reviewed Mode of arrival: EMS Limitations: altered mental status History of Present Illness HPI Narrative: 25-year-old female with a history of polysubstance abuse including IV heroin, cocaine, methamphetamine, history of PTSD, depression, anxiety who presents to the ER after she was found altered after drug use at a man's house. Description of her mental status at the home was not described by EMS. She has a history of DKA due to noncompliance and has left AMA from the hospital several times. Last admission here was in Dec where she required intubation for AMS in the setting of DKA. On route to the hospital patient is confused and yelling out for help. She states her name but will not answer other questions. MD complaint: accidental overdose Onset (ago): unknown Intent: unwilling to say and unknown How Overdose Was Discovered: called family/friend Associated symptoms: lethargy Treatments Prior to Arrival: none Related Data Previous Rx's Medication Instructions Recorded buprenorphine 8 mg-naloxone 2 mg 1 film SUBLINGUAL DAILY #0 ea 01/13/21 sublingual film (Suboxone) doxycycline hyclate 100 mg tablet 100 mg PO Q12H 7 Days #20 tab 01/13/21 insulin glargine 100 unit/mL 30 unit (0.3 mL) SUBCUT DAILY 30 01/13/21 subcutaneous solution (Lantus Days #10 ml U-100 Insulin) metronidazole 500 mg tablet 500 mg PO BID 7 Days #30 tab 01/13/21 mupirocin 2 % topical ointment 1 appl TOPICAL DAILY 30 Days #22 g 01/13/21 quetiapine 100 mg tablet 100 mg PO BID 30 Days #30 tab 01/13/21 Allergies Allergy/AdvReac Type Severity Reaction Status Date / Time No Known Allergies Allergy Verified 12/20/20 07:52 Review of Systems Review of Systems: Yes Unobtainable due to mental condition and Unobtainable due to mental status PMFSH Past Medical History Medical History (Updated 04/15/21 @ 16:44 by MIRANDA Araiza) Anxiety Bacteremia Cocaine abuse Diabetes mellitus type 1 Endocarditis Heroin abuse Leukocytosis Polysubstance abuse Staphylococcus aureus bacteremia Substance abuse Social History Social History Household Members: None Housing: Homeless Do you presently have visiting nurse or other home services: No Unable to assess alcohol history related to: Unable to respond Alcohol intake: current Alcohol intake frequency: 3 or more drinks per day Alcohol type: beer, wine and hard liquor Patient Tobacco Use Status: Current everyday Tobacco user Tobacco use type: Cigarette Cigarette Packs Per Day: 1 Cigarettes Per Day: 20.0 Years Smoked: ''since I was 16'' e-Cigarette/Vaping Use: Former Use Second Hand Smoke Exposure: Yes Substance Use Type: Crack/Cocaine, IV Drugs, Opiates and Other Advance Directives: No Advance Directives Information Provided: No service: No Current occupational status: unemployed Sexual orientation: Straight/Heterosexual Physical Exam Vital Signs: Vital Signs: Last Vital Signs Pulse 110 H 04/15/21 14:21 Resp 29 H 04/15/21 14:21 Pulse Ox 98 04/15/21 14:21 BMI result Body Mass Index 18.3 Appearance: Alert, appears older than stated age, superficial abrasions and picking castelan in various stages of healing all over her face and body. Eyes: Pupils equal, round and reactive to light. ENT: Pharynx with dry mucous membranes, erythematous tongue. Poor dentition, only fragments of teeth on bottom jaw present Neck: Normal inspection. Neck supple. CVS: Tachycardic, regular rhythm. Pulses normal. Respiratory: Mild respiratory distress with increased RR. Breath sounds normal. Abdomen: Soft and nontender. +BS x4 Skin: Skin warm and dry. Poor skin turgor, pale Extremities: All 4 extremities with several wounds in various stages of healing, several track castelan on all 4 extremities without any evidence of warmth, erythema, drainage of pus Neuro: Oriented X 1. Awake and spontaneously moving all 4 extremities but does not follow commands makes eye contact and tracks but does not converse. Course Course Course Narrative: 25-year-old female well known to this ER and hospital with history of severe polysubstance abuse and IV drug use, history of insulin-dependent diabetes with history of noncompliance and leaving against medical advice on several instances who presents to the ER with altered mental status and hyperglycemia. Glucose 500 range for EMS. >600 here. Unknown when she last took her last insulin. She is tachypneic and appears to be in DKA. IV fluids and IV insulin have been ordered. Anticipate admission to the ICU. Reevaluation(s) Reevaluation #1: Patient extremely agitated unable to get peripheral access. Multiple staff members at the bedside to restrain her. IM Haldol ordered with some affect however she is requiring additional sedation to safely obtain IV access. IM Versed also ordered. Patient is a very hard stick with very poor peripheral veins and severe dehydration. Ultimately a central line needed to be placed with several staff members restraining her. Soft wrist restraints placed for her safety. She has history of pulling out central lines in the past. Reevaluation #2: Critical result of white blood cell count of 41,000. H/H and platelets also significantly elevated from her baseline, she is hemoconcentrated and severely dehydrated. She is certainly high risk for endocarditis and bacteremia given her IV drug use. Hx Staph aureus bacteremia in the past with no definitive ECHO findings of encocarditis in the past. Blood cultures have been ordered. Will cover broadly with vanco and Zosyn. PH 7.01 consistent with diabetic ketoacidosis. IV insulin and IV fluids have been ordered. IV insulin infusion also ordered per protocol, will start at 5 units/hr for now until serum glucose is determined. Reevaluation #3: Serum glucose 887 with anion gap 45. K+ ok at 4.5. Will admit to ICU for further management. Consultations Consultation #1: ICU Dr. Lo Procedures Central Line Placement Right IJ: Patient Placed on Monitor/Pulse Ox: Yes MD Prep: mask, gown and gloves Central Line Prep: Chlorhexidine scrub and sterile drapes applied Local Anesthetic: lidocaine 2% Amount of anesthesia used (mL): 44 Ultrasound Used for Placement: Yes Central Line Lumen Inserted: triple Post Procedure: sutured in place, good blood return, all ports aspirated, flushed, capped and sterile dressing applied Post Procedure X-Ray: tip of catheter in good position Patient Tolerated Procedure: well Complications: none MDM - Overdose Lab Data Result diagrams: 04/15/21 16:12 04/15/21 16:12 Labs: Lab Results 04/15/21 04/15/21 04/15/21 Range/Units 14:16 14:31 16:03 WBC (4.8-10.8) X10*3/uL RBC (4.20-5.50) X10*6/uL Hgb (12.0-16.0) g/dl Hct (37.0-47.0) % MCV (80.0-98.0) fL MCH (27.0-33.0) pg MCHC (31.0-35.0) g/dl RDW (11.0-16.0) % Plt Count (160-400) X10*3/uL MPV (9.4-12.3) fL Immature Gran % (Auto) Neut % (Auto) Lymph % (Auto) [place] % (Auto) Eos % (Auto) Baso % (Auto) Lymph # (Auto) [place] # (Auto) Eos # (Auto) Baso # (Auto) Abs Immat Gran (auto) Absolute Neuts (auto) Absolute Nucleated RBC (0.0-0.012) X10*3/uL Nucleated RBC % (auto) (0.0-0.2) /100WBC Neutrophils % (Manual) (45-73) % Band Neutrophils % (3-5) % Lymphocytes % (Manual) (20-40) % Monocytes % (Manual) (2-11) % Abs Neuts (Manual) (2.0-8.3) X10*3/uL Lymphocytes # (Manual) (1.2-4.9) X10*3/uL Monocytes # (Manual) (0.1-1.2) X10*3/uL Toxic Granulation Toxic Vacuolation Dohle Bodies Platelet Estimate (NORMAL) Plt Morphology Comment RBC Morphology Polychromasia /OIF Woodrow Cells /OIF VBG pH (7.32-7.43) VBG pCO2 mmHg VBG pO2 mmHg VBG HCO3 (22-26) mmol/L VBG O2 Saturation % VBG Base Excess mmol/L Sodium (135-145) mmol/L Potassium (3.3-5.1) mmol/L Chloride (96-108) mmol/L Carbon Dioxide (22-29) mmol/L Anion Gap (12-20) BUN (9-16) mg/dL Creatinine (0.5-1.4) mg/dL Estim Creat Clear Calc Estimated GFR POC Glucose > 600 H* > 600 H* (60-115) mg/dL Random Glucose (60-115) mg/dL Lactic Acid (0.5-2.0) mmol/L Calcium (8.4-10.2) mg/dL Magnesium (1.6-2.6) mg/dL Total Bilirubin (0.0-1.0) mg/dL Direct Bilirubin (0.0-0.5) mg/dL AST (5-31) U/L ALT (0-31) U/L Alkaline Phosphatase (39-117) U/L Total Protein (6.5-8.0) g/dL Albumin (3.5-5.0) g/dL Lipase (8-78) U/L Ethyl Alcohol mg/dL COVID-19 (BRENDA) Negative (Negative) COVID-19 Clin Com See Note 04/15/21 04/15/21 04/15/21 Range/Units 16:12 16:12 16:12 WBC 41.9 H* (4.8-10.8) X10*3/uL RBC 4.43 (4.20-5.50) X10*6/uL Hgb 11.7 L (12.0-16.0) g/dl Hct 40.4 (37.0-47.0) % MCV 91.2 (80.0-98.0) fL MCH 26.4 L (27.0-33.0) pg MCHC 29.0 L (31.0-35.0) g/dl RDW 14.3 (11.0-16.0) % Plt Count 518 H (160-400) X10*3/uL MPV 11.0 (9.4-12.3) fL Immature Gran % (Auto) Cancelled Neut % (Auto) Cancelled Lymph % (Auto) Cancelled [place] % (Auto) Cancelled Eos % (Auto) Cancelled Baso % (Auto) Cancelled Lymph # (Auto) Cancelled [place] # (Auto) Cancelled Eos # (Auto) Cancelled Baso # (Auto) Cancelled Abs Immat Gran (auto) Cancelled Absolute Neuts (auto) Cancelled Absolute Nucleated RBC 0.000 (0.0-0.012) X10*3/uL Nucleated RBC % (auto) 0.0 (0.0-0.2) /100WBC Neutrophils % (Manual) 83 H (45-73) % Band Neutrophils % 7 H (3-5) % Lymphocytes % (Manual) 4 L (20-40) % Monocytes % (Manual) 6 (2-11) % Abs Neuts (Manual) 37.7 H (2.0-8.3) X10*3/uL Lymphocytes # (Manual) 1.7 (1.2-4.9) X10*3/uL Monocytes # (Manual) 2.5 H (0.1-1.2) X10*3/uL Toxic Granulation PRESENT Toxic Vacuolation PRESENT Dohle Bodies PRESENT Platelet Estimate SLIGHTLY INCREASED (NORMAL) Plt Morphology Comment NORMAL RBC Morphology NOTED Polychromasia 1+ (0-2) /OIF Haider Cells 1+ (0-2) /OIF VBG pH (7.32-7.43) VBG pCO2 mmHg VBG pO2 mmHg VBG HCO3 (22-26) mmol/L VBG O2 Saturation % VBG Base Excess mmol/L Sodium 135 (135-145) mmol/L Potassium 4.5 D (3.3-5.1) mmol/L Chloride 90 L (96-108) mmol/L Carbon Dioxide 5 L* D (22-29) mmol/L Anion Gap 45 H (12-20) BUN 51 H (9-16) mg/dL Creatinine 2.08 H (0.5-1.4) mg/dL Estim Creat Clear Calc 30.1 Estimated GFR 30 POC Glucose (60-115) mg/dL Random Glucose 887 H* D (60-115) mg/dL Lactic Acid 2.2 H* (0.5-2.0) mmol/L Calcium 8.9 D (8.4-10.2) mg/dL Magnesium 3.3 H (1.6-2.6) mg/dL Total Bilirubin 0.4 (0.0-1.0) mg/dL Direct Bilirubin 0.3 (0.0-0.5) mg/dL AST 19 D (5-31) U/L ALT 17 (0-31) U/L Alkaline Phosphatase 258 H D (39-117) U/L Total Protein 6.9 D (6.5-8.0) g/dL Albumin 3.3 L (3.5-5.0) g/dL Lipase 20 (8-78) U/L Ethyl Alcohol mg/dL COVID-19 (BRENDA) (Negative) COVID-19 Clin Com 04/15/21 04/15/21 04/15/21 Range/Units 16:12 16:21 16:37 WBC (4.8-10.8) X10*3/uL RBC (4.20-5.50) X10*6/uL Hgb (12.0-16.0) g/dl Hct (37.0-47.0) % MCV (80.0-98.0) fL MCH (27.0-33.0) pg MCHC (31.0-35.0) g/dl RDW (11.0-16.0) % Plt Count (160-400) X10*3/uL MPV (9.4-12.3) fL Immature Gran % (Auto) Neut % (Auto) Lymph % (Auto) [place] % (Auto) Eos % (Auto) Baso % (Auto) Lymph # (Auto) [place] # (Auto) Eos # (Auto) Baso # (Auto) Abs Immat Gran (auto) Absolute Neuts (auto) Absolute Nucleated RBC (0.0-0.012) X10*3/uL Nucleated RBC % (auto) (0.0-0.2) /100WBC Neutrophils % (Manual) (45-73) % Band Neutrophils % (3-5) % Lymphocytes % (Manual) (20-40) % Monocytes % (Manual) (2-11) % Abs Neuts (Manual) (2.0-8.3) X10*3/uL Lymphocytes # (Manual) (1.2-4.9) X10*3/uL Monocytes # (Manual) (0.1-1.2) X10*3/uL Toxic Granulation Toxic Vacuolation Dohle Bodies Platelet Estimate (NORMAL) Plt Morphology Comment RBC Morphology Polychromasia /OIF [place] Cells /OIF VBG pH 7.01 L* (7.32-7.43) VBG pCO2 10 mmHg VBG pO2 88 mmHg VBG HCO3 3 L (22-26) mmol/L VBG O2 Saturation 91.0 % VBG Base Excess -25.9 mmol/L Sodium (135-145) mmol/L Potassium (3.3-5.1) mmol/L Chloride (96-108) mmol/L Carbon Dioxide (22-29) mmol/L Anion Gap (12-20) BUN (9-16) mg/dL Creatinine (0.5-1.4) mg/dL Estim Creat Clear Calc Estimated GFR POC Glucose > 600 H* (60-115) mg/dL Random Glucose (60-115) mg/dL Lactic Acid (0.5-2.0) mmol/L Calcium (8.4-10.2) mg/dL Magnesium (1.6-2.6) mg/dL Total Bilirubin (0.0-1.0) mg/dL Direct Bilirubin (0.0-0.5) mg/dL AST (5-31) U/L ALT (0-31) U/L Alkaline Phosphatase (39-117) U/L Total Protein (6.5-8.0) g/dL Albumin (3.5-5.0) g/dL Lipase (8-78) U/L Ethyl Alcohol < 10 mg/dL COVID-19 (BRENDA) (Negative) COVID-19 Clin Com Critical Care Time Critical Care Time Critical Care Time: Yes Total Critical Care Time: 62 Attestation: I have personally provided critical care time exclusive of time spent on separately billable procedures. Time includes review of lab data, radiology results, discussion with consultants, and monitoring for potential decompensation. Intervention performed as documented. Discharge Plan Discharge Clinical Impression: Acute metabolic encephalopathy, RUDI (acute kidney injury) DKA (diabetic ketoacidosis) Qualifiers: Diabetes mellitus type: type 1 Diabetes mellitus complication detail: without coma Qualified Code(s): E10.10 - Type 1 diabetes mellitus with ketoacidosis without coma Patient Disposition: Admitted As Inpatient
--- NOTE | 2021-04-15 14:45 | ECG_ITS ---
Test Reason : ams Blood Pressure : / mmHG Vent. Rate : 105 BPM Atrial Rate : 105 BPM P-R Int : 140 ms QRS Dur : 086 ms QT Int : 360 ms P-R-T Axes : 078 078 049 degrees QTc Int : 475 ms Sinus tachycardia Otherwise normal ECG When compared with ECG of 10-JAN-2021 14:18, Nonspecific T wave abnormality no longer evident in Inferior leads T wave amplitude has increased in Anterolateral leads QT has lengthened Referred By: Amy Merchant Electronically Signed By:Constantine Montalvo
[2021-04-15] MEDS: Haloperidol Lactate 5 MG/ML VIAL 2 MG IM ×2 (14:59→17:30)
[2021-04-15] MEDS: Midazolam HCl/PF 2 MG/2 ML VIAL IM (15:17)
[2021-04-15 16:01] LABS: Glucose, Whole Blood > 600 mg/dL (60-115)
[2021-04-15 16:01] LABS: Glucose, Whole Blood > 600 mg/dL (60-115)
[2021-04-15] MEDS: Insulin Regular, Human 100 UNIT/ML 3 ML VIAL IVPUSH (16:16)
[2021-04-15 16:21] LABS: Red Blood Count 4.43 X10*6/uL (4.20-5.50)
[2021-04-15] MEDS: 0.9 % Sodium Chloride 1,000 ML 999 ML IVCONT ×3 (16:25→17:20)
[2021-04-15 16:32] LABS: VBG Base Excess -25.9 mmol/L; VBG HCO3 3 mmol/L (22-26); VBG pCO2 10 mmHg; VBG pO2 88 mmHg
[2021-04-15 16:32] LABS: Hematocrit 40.4 % (37.0-47.0); Hemoglobin 11.7 g/dl (12.0-16.0); Mean Corpuscular Hemoglobin 26.4 pg (27.0-33.0); Mean Corpuscular Volume 91.2 fL (80.0-98.0); Platelet Count 518 X10*3/uL (160-400); Red Cell Distribution Width 14.3 % (11.0-16.0)
[2021-04-15 16:33] LABS: Ethanol < 10 mg/dL; WBC ABN SCTR FOR CBC 1
[2021-04-15 16:36] LABS: White Blood Count 41.9 X10*3/uL (4.8-10.8)
[2021-04-15 16:39] LABS: Alanine Aminotransferase 17 U/L (0-31); Albumin Level 3.3 g/dL (3.5-5.0); Alkaline Phosphatase 258 U/L (39-117); Aspartate Amino Transferase 19 U/L (5-31); Bilirubin Direct 0.3 mg/dL (0.0-0.5); Bilirubin Total 0.4 mg/dL (0.0-1.0); Blood Urea Nitrogen 51 mg/dL (9-16); Calcium 8.9 mg/dL (8.4-10.2); Creatinine Clr Calc Pharmacy 30.1; Estimated Glomerular Filt Rate 30; Lipase 20 U/L (8-78); Magnesium 3.3 mg/dL (1.6-2.6); Total Protein 6.9 g/dL (6.5-8.0)
[2021-04-15 16:40] LABS: Venous Blood Gas Refer to POC result
[2021-04-15 16:41] LABS: VBG pH 7.01 (7.32-7.43)
[2021-04-15 16:43] LABS: Glucose, Whole Blood > 600 mg/dL (60-115)
[2021-04-15 16:50] LABS: COVID-19 Test Negative (Negative); IDNOW Serial# 9DD0AD1C
[2021-04-15 17:01] LABS: Band Neutrophils Percent 7 % (3-5); Lymphocytes Absolute Manual 1.7 X10*3/uL (1.2-4.9); Lymphocytes Percent Manual 4 % (20-40); Monocytes Absolute Manual 2.5 X10*3/uL (0.1-1.2); Monocytes Percent Manual 6 % (2-11); Neutrophils Absolute Manual 37.7 X10*3/uL (2.0-8.3); Neutrophils Percent Manual 83 % (45-73); RBC Morphology NOTED
[2021-04-15 17:03] LABS: Anion Gap 45 (12-20); Burr Cells 1+ (0-2) /OIF; Carbon Dioxide 5 mmol/L (22-29); Chloride 90 mmol/L (96-108); Dohle Bodies PRESENT; Glucose Random 887 mg/dL (60-115); Lactic Acid 2.2 mmol/L (0.5-2.0); Platelet Estimate SLIGHTLY INCREASED (NORMAL); Platelet Morphology Comment NORMAL; Polychromasia 1+ (0-2) /OIF; Potassium 4.5 mmol/L (3.3-5.1); Sodium 135 mmol/L (135-145); Toxic Granulation PRESENT; Toxic Vacuolation PRESENT
[2021-04-15] MEDS: Insulin Regular/NS 100 UNIT/100 ML PLAST..BAG IVCONT (17:22)
[2021-04-15] MEDS: Heparin Sodium,Porcine 5,000 UNIT/ML VIAL 5000 UNIT SUBCUT (17:33)
--- NOTE | 2021-04-15 17:35 | PM.CCHP ---
History of Present Illness Date of Service: 04/15/21 Chief Complaint: Metabolic encephalopathy, DKA, polysubstance abuse 25-year-old lady with underlying history of polysubstance abuse including heroin, cocaine, amphetamine, diabetes mellitus with poor compliance with insulin therapy, multiple prior admissions for DKA admitted on 04/15/2021 with alteration of mental status. On ER evaluation patient was noted to have metabolic encephalopathy secondary to underlying diabetic ketoacidosis. Central venous access was placed secondary to inability to place peripheral venous access. Patient has been started on insulin drip and IV fluid resuscitation. She has received empiric broad-spectrum antibiotic coverage. Review of Systems Review of Systems: Yes Unobtainable due to mental status PMFSH Past Medical History Medical History (Updated 04/15/21 @ 16:44 by MIRANDA Araiza) Anxiety Bacteremia Cocaine abuse Diabetes mellitus type 1 Endocarditis Heroin abuse Leukocytosis Polysubstance abuse Staphylococcus aureus bacteremia Substance abuse Social History Social History Household Members: None Housing: Homeless Do you presently have visiting nurse or other home services: No Unable to assess alcohol history related to: Unable to respond Alcohol intake: current Alcohol intake frequency: 3 or more drinks per day Alcohol type: beer, wine and hard liquor Patient Tobacco Use Status: Current everyday Tobacco user Tobacco use type: Cigarette Cigarette Packs Per Day: 1 Cigarettes Per Day: 20.0 Years Smoked: ''since I was 16'' e-Cigarette/Vaping Use: Former Use Second Hand Smoke Exposure: Yes Substance Use Type: Crack/Cocaine, IV Drugs, Opiates and Other Advance Directives: No Advance Directives Information Provided: No service: No Current occupational status: unemployed Sexual orientation: Straight/Heterosexual Meds Allergies Allergy/AdvReac Type Severity Reaction Status Date / Time No Known Allergies Allergy Verified 12/20/20 07:52 Active Medications: Current Medications Heparin Sodium (Porcine) (Heparin Sodium,Porcine 5,000 Unit/Ml Vial) 5,000 unit SUBCUT Q8H [facility] Last Admin: 04/15/21 17:33 Dose: 5,000 unit Documented by: Insulin Human Regular (Myxredlin) 100 unit in 100 mls @ 0 mls/hr IVCONT .Q0M MIKKI; Protocol Last Admin: 04/15/21 17:22 Dose: 5 units/hr, 5 mls/hr Documented by: Sodium Chloride (Ns) 1,000 mls @ 999 mls/hr IVCONT .Q1H1M MIKKI Stop: 04/15/21 17:45 Last Admin: 04/15/21 17:20 Dose: 999 mls/hr Documented by: Lactated Ringer's (Lr) 1,000 mls @ 200 mls/hr IVCONT .Q5H MIKKI Ondansetron HCl (Ondansetron Hcl 4 Mg/2 Ml Vial) 4 mg IVPUSH Q8H PRN PRN Reason: Nausea Pharmacy Consult (Consult Rx Perform Med Rec) 1 each MISCELLANE ONCE PRN PRN Reason: Consult order Physical Exam Vital Signs: Vital Signs: Last Vital Signs Pulse 110 H 04/15/21 14:21 Resp 29 H 04/15/21 14:21 Pulse Ox 98 04/15/21 14:21 BMI result Body Mass Index 18.3 Const: General: no acute distress, lethargic ( Arousable, confused) and other ( multiple skin abrasions) Nutritional Appearance: thin Orientation/consciousness: lethargic ( Arousable, confused) Eyes: Sclerae: sclerae normal EOM: EOMs intact bilaterally Neck: Neck: Yes no lymphadenopathy, Yes trachea midline and Yes supple Resp: Effort & Inspection: normal respiratory effort and no respiratory distress Auscultation: clear to auscultation bilaterally Cardio: Rate: tachycardic Rhythm: regular rhythm Heart sounds: no gallops, no murmurs and no rubs GI: Palpation (GI): Soft to palpation and Other GI palpation findings present ( Nontender) Auscultation: normal bowel sounds Extrem: General: Yes no pedal edema, No clubbing and No cyanosis Results Labs CBC and Chem 7: 04/15/21 16:12 04/15/21 16:12 Labs: Laboratory Results - last 24 hr 04/15/21 04/15/21 04/15/21 14:16 14:31 16:03 MCV MCH MCHC RDW Plt Count MPV Immature Gran % (Auto) Neut % (Auto) Lymph % (Auto) [place] % (Auto) Eos % (Auto) Baso % (Auto) Lymph # (Auto) [place] # (Auto) Eos # (Auto) Baso # (Auto) Abs Immat Gran (auto) Absolute Neuts (auto) Absolute Nucleated RBC Nucleated RBC % (auto) Neutrophils % (Manual) Band Neutrophils % Lymphocytes % (Manual) Monocytes % (Manual) Abs Neuts (Manual) Lymphocytes # (Manual) Monocytes # (Manual) Toxic Granulation Toxic Vacuolation Dohle Bodies Platelet Estimate Plt Morphology Comment RBC Morphology Polychromasia Haider Cells VBG pH VBG pCO2 VBG pO2 VBG HCO3 VBG O2 Saturation VBG Base Excess Anion Gap Estim Creat Clear Calc Estimated GFR POC Glucose > 600 H* > 600 H* Random Glucose Lactic Acid Calcium Magnesium Total Bilirubin Direct Bilirubin AST ALT Alkaline Phosphatase Total Protein Albumin Lipase Ethyl Alcohol COVID-19 (BRENDA) Negative COVID-19 Clin Com See Note 04/15/21 04/15/21 04/15/21 16:12 16:12 16:12 MCV 91.2 MCH 26.4 L MCHC 29.0 L RDW 14.3 Plt Count 518 H MPV 11.0 Immature Gran % (Auto) Cancelled Neut % (Auto) Cancelled Lymph % (Auto) Cancelled [place] % (Auto) Cancelled Eos % (Auto) Cancelled Baso % (Auto) Cancelled Lymph # (Auto) Cancelled [place] # (Auto) Cancelled Eos # (Auto) Cancelled Baso # (Auto) Cancelled Abs Immat Gran (auto) Cancelled Absolute Neuts (auto) Cancelled Absolute Nucleated RBC 0.000 Nucleated RBC % (auto) 0.0 Neutrophils % (Manual) 83 H Band Neutrophils % 7 H Lymphocytes % (Manual) 4 L Monocytes % (Manual) 6 Abs Neuts (Manual) 37.7 H Lymphocytes # (Manual) 1.7 Monocytes # (Manual) 2.5 H Toxic Granulation PRESENT Toxic Vacuolation PRESENT Dohle Bodies PRESENT Platelet Estimate SLIGHTLY INCREASED Plt Morphology Comment NORMAL RBC Morphology NOTED Polychromasia 1+ (0-2) Haider Cells 1+ (0-2) VBG pH VBG pCO2 VBG pO2 VBG HCO3 VBG O2 Saturation VBG Base Excess Anion Gap 45 H Estim Creat Clear Calc 30.1 Estimated GFR 30 POC Glucose Random Glucose 887 H* D Lactic Acid 2.2 H* Calcium 8.9 D Magnesium 3.3 H Total Bilirubin 0.4 Direct Bilirubin 0.3 AST 19 D ALT 17 Alkaline Phosphatase 258 H D Total Protein 6.9 D Albumin 3.3 L Lipase 20 Ethyl Alcohol COVID-19 (BRENDA) COVID-19 Clin Com 04/15/21 04/15/21 04/15/21 16:12 16:21 16:37 MCV MCH MCHC RDW Plt Count MPV Immature Gran % (Auto) Neut % (Auto) Lymph % (Auto) [place] % (Auto) Eos % (Auto) Baso % (Auto) Lymph # (Auto) [place] # (Auto) Eos # (Auto) Baso # (Auto) Abs Immat Gran (auto) Absolute Neuts (auto) Absolute Nucleated RBC Nucleated RBC % (auto) Neutrophils % (Manual) Band Neutrophils % Lymphocytes % (Manual) Monocytes % (Manual) Abs Neuts (Manual) Lymphocytes # (Manual) Monocytes # (Manual) Toxic Granulation Toxic Vacuolation Dohle Bodies Platelet Estimate Plt Morphology Comment RBC Morphology Polychromasia Haider Cells VBG pH 7.01 L* VBG pCO2 10 VBG pO2 88 VBG HCO3 3 L VBG O2 Saturation 91.0 VBG Base Excess -25.9 Anion Gap Estim Creat Clear Calc Estimated GFR POC Glucose > 600 H* Random Glucose Lactic Acid Calcium Magnesium Total Bilirubin Direct Bilirubin AST ALT Alkaline Phosphatase Total Protein Albumin Lipase Ethyl Alcohol < 10 COVID-19 (BRENDA) COVID-19 Clin [facility] Imaging Radiologist's Impressions: Impressions Chest X-Ray 04/15/21 16:00 IMPRESSION: Right-sided central line placed as described. Assessment and Plan (1) Acute metabolic encephalopathy: Status: Acute (2) DKA (diabetic ketoacidosis): Qualifiers: Diabetes mellitus complication detail: without coma Diabetes mellitus type: type 1 Qualified Code(s): E10.10 - Type 1 diabetes mellitus with ketoacidosis without coma Status: Acute (3) RUDI (acute kidney injury): Status: Acute (4) Substance abuse: Status: Acute Assessment: 25-year-old lady with underlying history of polysubstance abuse, diabetes with poor compliance with insulin therapy admitted with metabolic encephalopathy secondary to polysubstance abuse and diabetic ketoacidosis requiring insulin drip Plan: Neuro: metabolic/toxic encephalopathy secondary to diabetic ketoacidosis and polysubstance abuse. Continue to monitor. Cardiac: No acute issues. Pulmonary: No acute issues. Renal: Acute renal failure secondary to diabetic ketoacidosis. Non oliguric. Continue to monitor renal indices and urine output. Endo: Diabetic ketoacidosis, started on insulin drip protocol. GI: No acute issues. ID: Leukocytosis likely secondary to stress from diabetic ketoacidosis, empirically covered with broad-spectrum antibiotics. Heme/Onc: No acute issues. Psych: No acute issues. Underlying history of depression and PTSD. Miscellaneous: No acute issues. Prophylaxis: Heparin Diet: NPO Critical care time spent: 45 minutes
--- NOTE | 2021-04-15 18:08 | PHA.MEDREC ---
Pharmacy Consult ? Medication Reconciliation Pharmacy has completed the medication reconciliation. Pt was unable to answers questions about current med list, nothing in recent claim history. Nurse states that she takes Lantus 30 units at bedtime. Kalpana Tucker [facility]
[2021-04-15 18:10] LABS: Appearance Urine HAZY; Color Urine YELLOW; Glucose Urine UA >=1000 MG/DL (NEG); Leukocyte Esterase Urine NEG (NEG); Nitrite Urine NEG (NEG); PH 5.5 (5.0-8.0); Specific Gravity - Urine 1.025 (1.005-1.025); UACC Culture Trigger NO; Urine Blood 2+ (NEG); Urine Ketones >=80 MG/DL (NEG); Urine Pregnancy NEGATIVE (NEGATIVE); Urine Protein 1+ MG/DL (NEG-TRACE)
[2021-04-15 18:11] LABS: UPreg QC Valid YES
[2021-04-15 18:19] LABS: Reflex Lactate? Lactic Acid Added
[2021-04-15 18:21] LABS: Amphetamine Screen Urine Not Detected (Not Detect); Barbiturates, Urine Not Detected (Not Detect); Benzodiazepines Screen Urine Not Detected (Not Detect); Cannabinoid Screen Urine Not Detected (Not Detect); Cocaine Screen Urine POSITIVE (Not Detect); Fentanyl, urine POSITIVE (Not Detect); Opiate Screen Urine POSITIVE (Not Detect); Phencyclidine Screen Urine Not Detected (Not Detect)
[2021-04-15 18:22] LABS: WBC Urine 0 /HPF (0-4)
[2021-04-15 18:23] LABS: Amorphous Sediment Urine 1+ /LPF; Renal Epithelial Cells Urine 1+ /LPF
[2021-04-15 18:23] LABS: Acetone, serum QL Large (Negative)
[2021-04-15] MEDS: dexmedeTOMIDidine HCL/NS 400 MCG/100 ML INFUS..BTL 11.34 MCG IVCONT (18:29)
[2021-04-15 18:34] LABS: Glucose, Whole Blood 574 mg/dL (60-115)
[2021-04-15] MEDS: Piperacillin Sodium/Tazobactam 3.375 GM in 0.9 % Sodium Chloride 50 ML IV (18:53)
[2021-04-15 19:05] LABS: ~Lactic Acid-LAB USE ONLY 1.8 mmol/L (0.5-2.0)
[2021-04-15] MEDS: Lactated Ringers 1,000 ML 200 ML IVCONT (19:21)
[2021-04-15] MEDS: vancomycin HCL 750 MG in 0.9 % Sodium Chloride 250 ML 265 MG IV (19:21)
[2021-04-15 19:29] LABS: Glucose, Whole Blood 550 mg/dL (60-115)
[2021-04-15 19:50] LABS: Blood Urea Nitrogen 44 mg/dL (9-16); Carbon Dioxide < 5 mmol/L (22-29); Chloride 108 mmol/L (96-108); Creatinine Clr Calc Pharmacy 42.3; Estimated Glomerular Filt Rate 42; Glucose Random 695 mg/dL (60-115); Potassium 3.4 mmol/L (3.3-5.1); Sodium 143 mmol/L (135-145)
[2021-04-15 20:26] LABS: Glucose, Whole Blood 490 mg/dL (60-115)
[2021-04-15 21:28] LABS: Glucose, Whole Blood 481 mg/dL (60-115)
[2021-04-15 22:31] LABS: Glucose, Whole Blood 469 mg/dL (60-115)
[2021-04-16] VITALS (32 sets, daily range): BP systolic 92–121; BP diastolic 35–75; PULSE 65–104; RESP 17–41; TEMP 34.3–39.1; O2SAT 20–100; BMI 19.8
[2021-04-16 00:26] LABS: Glucose, Whole Blood 302 mg/dL (60-115)
[2021-04-16] MEDS: Lactated Ringers 1,000 ML 200 ML IVCONT (00:49)
[2021-04-16] MEDS: dexmedeTOMIDidine HCL/NS 400 MCG/100 ML INFUS..BTL 13.61 MCG IVCONT (00:53)
[2021-04-16 01:33] LABS: Glucose, Whole Blood 255 mg/dL (60-115)
[2021-04-16] MEDS: Dextrose 5 % and Lactated Ring 1,000 ML 200 ML IVCONT ×2 (02:24→06:44)
[2021-04-16] MEDS: Heparin Sodium,Porcine 5,000 UNIT/ML VIAL 5000 UNIT SUBCUT ×3 (02:35→17:18)
[2021-04-16 03:45] LABS: Glucose, Whole Blood 178 mg/dL (60-115)
[2021-04-16 05:24] LABS: VBG Base Excess -6.4 mmol/L; VBG HCO3 16 mmol/L (22-26); VBG pCO2 26 mmHg; VBG pO2 38 mmHg
[2021-04-16 05:26] LABS: Glucose, Whole Blood 155 mg/dL (60-115)
[2021-04-16 05:27] LABS: Venous Blood Gas Refer to POC result
[2021-04-16 05:52] LABS: Hematocrit 32.1 % (37.0-47.0); Hemoglobin 10.3 g/dl (12.0-16.0); Mean Corpuscular HGB Conc 32.1 g/dl (31.0-35.0); Mean Corpuscular Hemoglobin 26.3 pg (27.0-33.0); Mean Corpuscular Volume 81.9 fL (80.0-98.0); Mean Platelet Volume 10.1 fL (9.4-12.3); Platelet Count 328 X10*3/uL (160-400); Red Blood Count 3.92 X10*6/uL (4.20-5.50); Red Cell Distribution Width 13.3 % (11.0-16.0); White Blood Count 22.7 X10*3/uL (4.8-10.8)
[2021-04-16 06:29] LABS: Alanine Aminotransferase 15 U/L (0-31); Albumin Level 2.6 g/dL (3.5-5.0); Alkaline Phosphatase 149 U/L (39-117); Anion Gap 18 (12-20); Aspartate Amino Transferase 19 U/L (5-31); Bilirubin Total 0.2 mg/dL (0.0-1.0); Blood Urea Nitrogen 31 mg/dL (9-16); Calcium 8.2 mg/dL (8.4-10.2); Carbon Dioxide 17 mmol/L (22-29); Chloride 120 mmol/L (96-108); Creatinine Clr Calc Pharmacy 65.2; Estimated Glomerular Filt Rate > 60; Glucose Random 150 mg/dL (60-115); Magnesium 1.8 mg/dL (1.6-2.6); Phosphorus 0.8 mg/dL (2.7-4.5); Potassium 3.2 mmol/L (3.3-5.1); Sodium 152 mmol/L (135-145); Total Protein 5.3 g/dL (6.5-8.0)
[2021-04-16] MEDS: Piperacillin Sodium/Tazobactam 3.375 GM in 0.9 % Sodium Chloride 50 ML IV ×4 (06:39→23:25)
[2021-04-16 06:42] LABS: Atypical Lymph Absolute Manual 0.2 x10*3/uL; Atypical Lymphs Percent Manual 1 % (0-6); Band Neutrophils Percent 22 % (3-5); Lymphocytes Absolute Manual 0.5 X10*3/uL (1.2-4.9); Lymphocytes Percent Manual 2 % (20-40); Monocytes Absolute Manual 0.2 X10*3/uL (0.1-1.2); Monocytes Percent Manual 1 % (2-11); Neutrophils Absolute Manual 21.8 X10*3/uL (2.0-8.3); Neutrophils Percent Manual 74 % (45-73)
[2021-04-16 06:43] LABS: Platelet Estimate NORMAL (NORMAL); Platelet Morphology Comment NORMAL; RBC Morphology NORMAL; Toxic Vacuolation PRESENT
--- NOTE | 2021-04-16 07:07 | PHA.PROG ---
Admission Date/Time: April 15, 2021 17:10 Indication: BACTEREMIA Weight in k kg Serum Creatinine - Last 168 Hours 04/15/21 04/15/21 04/16/21 16:12 18:44 05:18 Creatinine 2.08 H 1.54 H 1.00 Estimated CrCl and GFR - Last 168 Hours 04/15/21 04/15/21 04/16/21 16:12 18:44 05:18 Estim Creat Clear Calc 30.1 42.3 65.2 Estimated GFR 30 42 > 60 Vancomycin Loading Dose: 1000 Current Vancomycin Dosing Regimen: 750 Q 12 Vancomycin Monitoring using AUC goal of 400 - 600 range with trough as surrogate marker: 534 MG/L HR Date and Time for next Vancomycin Level to be Drawn : @ [id number] Pharmacist Comments on Vancomycin Plan: Vancomycin dosing will take advantage of [employer] as a clinical decision support tool that uses Bayesian modeling to calculate individual patient's pharmacokinetic parameters and forecast the patient's drug concentration time course with the target goal AUC 24 range of 400 - 600 mg/L/hr.
[2021-04-16 07:27] LABS: Glucose, Whole Blood 180 mg/dL (60-115)
[2021-04-16] MEDS: vancomycin HCL 1,000 MG in 0.9 % Sodium Chloride 250 ML 270 MG IV (07:32)
[2021-04-16] MEDS: Potassium Phosphate/NS 15 MMOL/250 ML PLAST..BAG 62.5 MMOL IV (07:36)
[2021-04-16 07:45] LABS: Glucose, Whole Blood > 600 mg/dL (60-115)
[2021-04-16] MEDS: dexmedeTOMIDidine HCL/NS 400 MCG/100 ML INFUS..BTL 17.01 MCG IVCONT ×2 (07:45→13:28)
[2021-04-16] MEDS: Haloperidol Lactate 5 MG/ML VIAL IVPUSH (08:30)
[2021-04-16 09:37] LABS: Glucose, Whole Blood 169 mg/dL (60-115)
[2021-04-16 10:45] LABS: Blood Urea Nitrogen 28 mg/dL (9-16); Calcium 7.7 mg/dL (8.4-10.2); Creatinine Clr Calc Pharmacy 63.2; Estimated Glomerular Filt Rate > 60; Glucose Random 181 mg/dL (60-115)
[2021-04-16 10:54] LABS: Anion Gap 17 (12-20); Carbon Dioxide 16 mmol/L (22-29); Chloride 123 mmol/L (96-108); Sodium 151 mmol/L (135-145)
[2021-04-16 11:28] LABS: Glucose, Whole Blood 174 mg/dL (60-115)
[2021-04-16] MEDS: fentaNYL citrate/PF 100 MCG/2 ML VIAL 50 MCG IVPUSH ×2 (11:48→15:50)
--- NOTE | 2021-04-16 11:50 | MHC.CM.PN ---
pt reportedly is homeless. she has no svcs and has left [facility] in the past. she does have a parent that lives in [place]. pt would benefit from a care team consult prior to dc. dc plan is uncertain at this time based on patient's history of signing out A[facility] and not participating in an optimal dc plan. pt will likely need help c transportation at dc. cm to cont. to follow.
[2021-04-16] MEDS: Insulin Regular/NS 100 UNIT/100 ML PLAST..BAG IVCONT (11:55)
[2021-04-16 13:24] LABS: Glucose, Whole Blood 107 mg/dL (60-115)
--- NOTE | 2021-04-16 14:18 | P.PNCC_ITS ---
Subjective Subjective Date of Service: 04/16/21 Interval History: 25-year-old lady with underlying history of polysubstance abuse including heroin, cocaine, amphetamine, diabetes mellitus with poor compliance with insulin therapy, multiple prior admissions for DKA admitted on 04/15/2021 with alteration of mental status. On ER evaluation patient was noted to have metabolic encephalopathy secondary to underlying diabetic ketoacidosis. Central venous access was placed secondary to inability to place peripheral venous access. Patient has been started on insulin drip and IV fluid resus citation. Patient was also noted to have blood cultures positive for gram- positive cocci. She is continue on broad-spectrum antibiotic coverage. Patient also has significant agitation despite high-dose Precedex drip. Continues with significant agitation requiring multiple sedatives despite Prece dex drip. Anion gap and bicarbonate are improving on insulin drip. Critical Care Time (minutes): 45 Physical Exam Vital Signs: Vital Signs: Last Vital Signs Pulse 90 04/16/21 14:00 Resp 21 H 04/16/21 14:00 BP 114/66 04/16/21 14:00 Pulse Ox 96 04/16/21 14:00 BMI result Body Mass Index 19.8 Const: General: no acute distress, combative (Intermittently), confusion and other (Multiple skin abrasions throughout) Orientation/consciousness: confusion Eyes: Sclerae: sclerae normal EOM: EOMs intact bilaterally Neck: Neck: Yes no lymphadenopathy, Yes trachea midline and Yes supple Resp: Effort & Inspection: normal respiratory effort and no respiratory distress Auscultation: clear to auscultation bilaterally Cardio: Rate: tachycardic Rhythm: regular rhythm Heart sounds: no gallops, no murmurs and no rubs GI: Palpation (GI): Soft to palpation and Other GI palpation findings present ( Nontender) Auscultation: normal bowel sounds Neuro: General: confusion Extrem: General: Yes no pedal edema, No clubbing and No cyanosis Objective Data Labs CBC & Chem 7: 04/16/21 05:18 04/16/21 10:20 Labs: Laboratory Results - last 24 hr 04/15/21 04/15/21 04/15/21 14:16 14:17 14:31 WBC RBC Hgb Hct MCV MCH MCHC RDW Plt Count MPV Immature Gran % (Auto) Neut % (Auto) Lymph % (Auto) [place] % (Auto) Eos % (Auto) Baso % (Auto) Lymph # (Auto) [place] # (Auto) Eos # (Auto) Baso # (Auto) Abs Immat Gran (auto) Absolute Neuts (auto) Absolute Nucleated RBC Nucleated RBC % (auto) Neutrophils % (Manual) Band Neutrophils % Lymphocytes % (Manual) Atypical Lymphs % (Man) Monocytes % (Manual) Abs Neuts (Manual) Lymphocytes # (Manual) Atyp Lymphs # (Manual) Monocytes # (Manual) Toxic Granulation Toxic Vacuolation Dohle Bodies Platelet Estimate Plt Morphology Comment RBC Morphology Polychromasia Haider Cells Smear Path Review VBG pH VBG pCO2 VBG pO2 VBG HCO3 VBG O2 Saturation VBG Base Excess Sodium Potassium Chloride Carbon Dioxide Anion Gap BUN Creatinine Estim Creat Clear Calc Estimated GFR POC Glucose > 600 H* > 600 H* > 600 H* Random Glucose Lactic Acid Lactic Acid F/U @ 2Hr Calcium Phosphorus Magnesium Total Bilirubin Direct Bilirubin AST ALT Alkaline Phosphatase Total Protein Albumin Lipase Urine Color Urine Appearance Urine pH Ur Specific [place] Urine Protein Urine Glucose (UA) Urine Ketones Urine Blood Urine Nitrite Ur Leukocyte Esterase Urine RBC Urine WBC Ur Squamous Epith Cells Ur Renal Epithelial Cell Amorphous Sediment Urine Bacteria Urine Test Urine Opiates Screen Urine Fentanyl Screen Ur Barbiturates Screen Ur Phencyclidine Scrn Ur Amphetamines Screen U Benzodiazepines Scrn Urine Cocaine Screen U Marijuana (THC) Screen Ethyl Alcohol Acetone, Qual COVID-19 (BRENDA) COVID-19 Clin Com 04/15/21 04/15/21 04/15/21 16:03 16:12 16:12 WBC 41.9 H* RBC 4.43 Hgb 11.7 L Hct 40.4 MCV 91.2 MCH 26.4 L MCHC 29.0 L RDW 14.3 Plt Count 518 H MPV 11.0 Immature Gran % (Auto) Cancelled Neut % (Auto) Cancelled Lymph % (Auto) Cancelled [place] % (Auto) Cancelled Eos % (Auto) Cancelled Baso % (Auto) Cancelled Lymph # (Auto) Cancelled [place] # (Auto) Cancelled Eos # (Auto) Cancelled Baso # (Auto) Cancelled Abs Immat Gran (auto) Cancelled Absolute Neuts (auto) Cancelled Absolute Nucleated RBC 0.000 Nucleated RBC % (auto) 0.0 Neutrophils % (Manual) 83 H Band Neutrophils % 7 H Lymphocytes % (Manual) 4 L Atypical Lymphs % (Man) Monocytes % (Manual) 6 Abs Neuts (Manual) 37.7 H Lymphocytes # (Manual) 1.7 Atyp Lymphs # (Manual) Monocytes # (Manual) 2.5 H Toxic Granulation PRESENT Toxic Vacuolation PRESENT Dohle Bodies PRESENT Platelet Estimate SLIGHTLY INCREASED Plt Morphology Comment NORMAL RBC Morphology NOTED Polychromasia 1+ (0-2) [place] Cells 1+ (0-2) Smear Path Review SEE NOTE VBG pH VBG pCO2 VBG pO2 VBG HCO3 VBG O2 Saturation VBG Base Excess Sodium 135 Potassium 4.5 D Chloride 90 L Carbon Dioxide 5 L* D Anion Gap 45 H BUN 51 H Creatinine 2.08 H Estim Creat Clear Calc 30.1 Estimated GFR 30 POC Glucose Random Glucose 887 H* D Lactic Acid Lactic Acid F/U @ 2Hr Calcium 8.9 D Phosphorus Magnesium 3.3 H Total Bilirubin 0.4 Direct Bilirubin 0.3 AST 19 D ALT 17 Alkaline Phosphatase 258 H D Total Protein 6.9 D Albumin 3.3 L Lipase 20 Urine Color Urine Appearance Urine pH Ur Specific [place] Urine Protein Urine Glucose (UA) Urine Ketones Urine Blood Urine Nitrite Ur Leukocyte Esterase Urine RBC Urine WBC Ur Squamous Epith Cells Ur Renal Epithelial Cell Amorphous Sediment Urine Bacteria Urine Test Urine Opiates Screen Urine Fentanyl Screen Ur Barbiturates Screen Ur Phencyclidine Scrn Ur Amphetamines Screen U Benzodiazepines Scrn Urine Cocaine Screen U Marijuana (THC) Screen Ethyl Alcohol Acetone, Qual Large H COVID-19 (BRENDA) Negative COVID-19 Clin Com See Note 04/15/21 04/15/21 04/15/21 16:12 16:12 16:21 WBC RBC Hgb Hct MCV MCH MCHC RDW Plt Count MPV Immature Gran % (Auto) Neut % (Auto) Lymph % (Auto) [place] % (Auto) Eos % (Auto) Baso % (Auto) Lymph # (Auto) [place] # (Auto) Eos # (Auto) Baso # (Auto) Abs Immat Gran (auto) Absolute Neuts (auto) Absolute Nucleated RBC Nucleated RBC % (auto) Neutrophils % (Manual) Band Neutrophils % Lymphocytes % (Manual) Atypical Lymphs % (Man) Monocytes % (Manual) Abs Neuts (Manual) Lymphocytes # (Manual) Atyp Lymphs # (Manual) Monocytes # (Manual) Toxic Granulation Toxic Vacuolation Dohle Bodies Platelet Estimate Plt Morphology Comment RBC Morphology Polychromasia [place] Cells Smear Path Review VBG pH 7.01 L* VBG pCO2 10 VBG pO2 88 VBG HCO3 3 L VBG O2 Saturation 91.0 VBG Base Excess -25.9 Sodium Potassium Chloride Carbon Dioxide Anion Gap BUN Creatinine Estim Creat Clear Calc Estimated GFR POC Glucose Random Glucose Lactic Acid 2.2 H* Lactic Acid F/U @ 2Hr Calcium Phosphorus Magnesium Total Bilirubin Direct Bilirubin AST ALT Alkaline Phosphatase Total Protein Albumin Lipase Urine Color Urine Appearance Urine pH Ur Specific [place] Urine Protein Urine Glucose (UA) Urine Ketones Urine Blood Urine Nitrite Ur Leukocyte Esterase Urine RBC Urine WBC Ur Squamous Epith Cells Ur Renal Epithelial Cell Amorphous Sediment Urine Bacteria Urine Test Urine Opiates Screen Urine Fentanyl Screen Ur Barbiturates Screen Ur Phencyclidine Scrn Ur Amphetamines Screen U Benzodiazepines Scrn Urine Cocaine Screen U Marijuana (THC) Screen Ethyl Alcohol < 10 Acetone, Qual COVID-19 (BRENDA) COVID-19 Clin Com 04/15/21 04/15/21 04/15/21 16:37 17:58 17:58 WBC RBC Hgb Hct MCV MCH MCHC RDW Plt Count MPV Immature Gran % (Auto) Neut % (Auto) Lymph % (Auto) [place] % (Auto) Eos % (Auto) Baso % (Auto) Lymph # (Auto) [place] # (Auto) Eos # (Auto) Baso # (Auto) Abs Immat Gran (auto) Absolute Neuts (auto) Absolute Nucleated RBC Nucleated RBC % (auto) Neutrophils % (Manual) Band Neutrophils % Lymphocytes % (Manual) Atypical Lymphs % (Man) Monocytes % (Manual) Abs Neuts (Manual) Lymphocytes # (Manual) Atyp Lymphs # (Manual) Monocytes # (Manual) Toxic Granulation Toxic Vacuolation Dohle Bodies Platelet Estimate Plt Morphology Comment RBC Morphology Polychromasia [place] Cells Smear Path Review VBG pH VBG pCO2 VBG pO2 VBG HCO3 VBG O2 Saturation VBG Base Excess Sodium Potassium Chloride Carbon Dioxide Anion Gap BUN Creatinine Estim Creat Clear Calc Estimated GFR POC Glucose > 600 H* Random Glucose Lactic Acid Lactic Acid F/U @ 2Hr Calcium Phosphorus Magnesium Total Bilirubin Direct Bilirubin AST ALT Alkaline Phosphatase Total Protein Albumin Lipase Urine Color YELLOW Urine Appearance HAZY Urine pH 5.5 Ur Specific [place] 1.025 Urine Protein 1+ H Urine Glucose (UA) >=1000 H Urine Ketones >=80 Urine Blood 2+ H Urine Nitrite NEG Ur Leukocyte Esterase NEG Urine RBC 5-9 H Urine WBC 0 Ur Squamous Epith Cells NONE Ur Renal Epithelial Cell 1+ Amorphous Sediment 1+ Urine Bacteria NONE Urine Test NEGATIVE Urine Opiates Screen Urine Fentanyl Screen Ur Barbiturates Screen Ur Phencyclidine Scrn Ur Amphetamines Screen U Benzodiazepines Scrn Urine Cocaine Screen U Marijuana (THC) Screen Ethyl Alcohol Acetone, Qual COVID-19 (BRENDA) COVID-19 Clin Com 04/15/21 04/15/21 04/15/21 17:58 18:31 18:44 WBC RBC Hgb Hct MCV MCH MCHC RDW Plt Count MPV Immature Gran % (Auto) Neut % (Auto) Lymph % (Auto) [place] % (Auto) Eos % (Auto) Baso % (Auto) Lymph # (Auto) [place] # (Auto) Eos # (Auto) Baso # (Auto) Abs Immat Gran (auto) Absolute Neuts (auto) Absolute Nucleated RBC Nucleated RBC % (auto) Neutrophils % (Manual) Band Neutrophils % Lymphocytes % (Manual) Atypical Lymphs % (Man) Monocytes % (Manual) Abs Neuts (Manual) Lymphocytes # (Manual) Atyp Lymphs # (Manual) Monocytes # (Manual) Toxic Granulation Toxic Vacuolation Dohle Bodies Platelet Estimate Plt Morphology Comment RBC Morphology Polychromasia [place] Cells Smear Path Review VBG pH VBG pCO2 VBG pO2 VBG HCO3 VBG O2 Saturation VBG Base Excess Sodium 143 Potassium 3.4 D Chloride 108 Carbon Dioxide < 5 L* Anion Gap TNP BUN 44 H Creatinine 1.54 H Estim Creat Clear Calc 42.3 Estimated GFR 42 POC Glucose 574 H* Random Glucose 695 H* Lactic Acid Lactic Acid F/U @ 2Hr Calcium 7.0 L D Phosphorus Magnesium Total Bilirubin Direct Bilirubin AST ALT Alkaline Phosphatase Total Protein Albumin Lipase Urine Color Urine Appearance Urine pH Ur Specific [place] Urine Protein Urine Glucose (UA) Urine Ketones Urine Blood Urine Nitrite Ur Leukocyte Esterase Urine RBC Urine WBC Ur Squamous Epith Cells Ur Renal Epithelial Cell Amorphous Sediment Urine Bacteria Urine Test Urine Opiates Screen POSITIVE H Urine Fentanyl Screen POSITIVE H Ur Barbiturates Screen Not Detected Ur Phencyclidine Scrn Not Detected Ur Amphetamines Screen Not Detected U Benzodiazepines Scrn Not Detected Urine Cocaine Screen POSITIVE H U Marijuana (THC) Screen Not Detected Ethyl Alcohol Acetone, Qual COVID-19 (BRENDA) COVID-19 Clin Com 04/15/21 04/15/21 04/15/21 18:44 19:24 20:22 WBC RBC Hgb Hct MCV MCH MCHC RDW Plt Count MPV Immature Gran % (Auto) Neut % (Auto) Lymph % (Auto) [place] % (Auto) Eos % (Auto) Baso % (Auto) Lymph # (Auto) [place] # (Auto) Eos # (Auto) Baso # (Auto) Abs Immat Gran (auto) Absolute Neuts (auto) Absolute Nucleated RBC Nucleated RBC % (auto) Neutrophils % (Manual) Band Neutrophils % Lymphocytes % (Manual) Atypical Lymphs % (Man) Monocytes % (Manual) Abs Neuts (Manual) Lymphocytes # (Manual) Atyp Lymphs # (Manual) Monocytes # (Manual) Toxic Granulation Toxic Vacuolation Dohle Bodies Platelet Estimate Plt Morphology Comment RBC Morphology Polychromasia [place] Cells Smear Path Review VBG pH VBG pCO2 VBG pO2 VBG HCO3 VBG O2 Saturation VBG Base Excess Sodium Potassium Chloride Carbon Dioxide Anion Gap BUN Creatinine Estim Creat Clear Calc Estimated GFR POC Glucose 550 H* 490 H* Random Glucose Lactic Acid Lactic Acid F/U @ 2Hr 1.8 Calcium Phosphorus Magnesium Total Bilirubin Direct Bilirubin AST ALT Alkaline Phosphatase Total Protein Albumin Lipase Urine Color Urine Appearance Urine pH Ur Specific [place] Urine Protein Urine Glucose (UA) Urine Ketones Urine Blood Urine Nitrite Ur Leukocyte Esterase Urine RBC Urine WBC Ur Squamous Epith Cells Ur Renal Epithelial Cell Amorphous Sediment Urine Bacteria Urine Test Urine Opiates Screen Urine Fentanyl Screen Ur Barbiturates Screen Ur Phencyclidine Scrn Ur Amphetamines Screen U Benzodiazepines Scrn Urine Cocaine Screen U Marijuana (THC) Screen Ethyl Alcohol Acetone, Qual COVID-19 (BRENDA) COVID-19 Clin Com 04/15/21 04/15/21 04/16/21 21:24 22:28 00:21 WBC RBC Hgb Hct MCV MCH MCHC RDW Plt Count MPV Immature Gran % (Auto) Neut % (Auto) Lymph % (Auto) [place] % (Auto) Eos % (Auto) Baso % (Auto) Lymph # (Auto) [place] # (Auto) Eos # (Auto) Baso # (Auto) Abs Immat Gran (auto) Absolute Neuts (auto) Absolute Nucleated RBC Nucleated RBC % (auto) Neutrophils % (Manual) Band Neutrophils % Lymphocytes % (Manual) Atypical Lymphs % (Man) Monocytes % (Manual) Abs Neuts (Manual) Lymphocytes # (Manual) Atyp Lymphs # (Manual) Monocytes # (Manual) Toxic Granulation Toxic Vacuolation Dohle Bodies Platelet Estimate Plt Morphology Comment RBC Morphology Polychromasia [place] Cells Smear Path Review VBG pH VBG pCO2 VBG pO2 VBG HCO3 VBG O2 Saturation VBG Base Excess Sodium Potassium Chloride Carbon Dioxide Anion Gap BUN Creatinine Estim Creat Clear Calc Estimated GFR POC Glucose 481 H* 469 H* 302 H Random Glucose Lactic Acid Lactic Acid F/U @ 2Hr Calcium Phosphorus Magnesium Total Bilirubin Direct Bilirubin AST ALT Alkaline Phosphatase Total Protein Albumin Lipase Urine Color Urine Appearance Urine pH Ur Specific [place] Urine Protein Urine Glucose (UA) Urine Ketones Urine Blood Urine Nitrite Ur Leukocyte Esterase Urine RBC Urine WBC Ur Squamous Epith Cells Ur Renal Epithelial Cell Amorphous Sediment Urine Bacteria Urine Test Urine Opiates Screen Urine Fentanyl Screen Ur Barbiturates Screen Ur Phencyclidine Scrn Ur Amphetamines Screen U Benzodiazepines Scrn Urine Cocaine Screen U Marijuana (THC) Screen Ethyl Alcohol Acetone, Qual COVID-19 (BRENDA) COVID-19 Clin Com 04/16/21 04/16/21 04/16/21 01:28 03:40 05:18 WBC 22.7 H RBC 3.92 L Hgb 10.3 L Hct 32.1 L D MCV 81.9 D MCH 26.3 L MCHC 32.1 RDW 13.3 Plt Count 328 D MPV 10.1 Immature Gran % (Auto) Cancelled Neut % (Auto) Cancelled Lymph % (Auto) Cancelled [place] % (Auto) Cancelled Eos % (Auto) Cancelled Baso % (Auto) Cancelled Lymph # (Auto) Cancelled [place] # (Auto) Cancelled Eos # (Auto) Cancelled Baso # (Auto) Cancelled Abs Immat Gran (auto) Cancelled Absolute Neuts (auto) Cancelled Absolute Nucleated RBC 0.000 Nucleated RBC % (auto) 0.0 Neutrophils % (Manual) 74 H Band Neutrophils % 22 H Lymphocytes % (Manual) 2 L Atypical Lymphs % (Man) 1 Monocytes % (Manual) 1 L Abs Neuts (Manual) 21.8 H Lymphocytes # (Manual) 0.5 L Atyp Lymphs # (Manual) 0.2 Monocytes # (Manual) 0.2 Toxic Granulation Toxic Vacuolation PRESENT Dohle Bodies Platelet Estimate NORMAL Plt Morphology Comment NORMAL RBC Morphology NORMAL Polychromasia [place] Cells Smear Path Review VBG pH VBG pCO2 VBG pO2 VBG HCO3 VBG O2 Saturation VBG Base Excess Sodium Potassium Chloride Carbon Dioxide Anion Gap BUN Creatinine Estim Creat Clear Calc Estimated GFR POC Glucose 255 H 178 H Random Glucose Lactic Acid Lactic Acid F/U @ 2Hr Calcium Phosphorus Magnesium Total Bilirubin Direct Bilirubin AST ALT Alkaline Phosphatase Total Protein Albumin Lipase Urine Color Urine Appearance Urine pH Ur Specific [place] Urine Protein Urine Glucose (UA) Urine Ketones Urine Blood Urine Nitrite Ur Leukocyte Esterase Urine RBC Urine WBC Ur Squamous Epith Cells Ur Renal Epithelial Cell Amorphous Sediment Urine Bacteria Urine Test Urine Opiates Screen Urine Fentanyl Screen Ur Barbiturates Screen Ur Phencyclidine Scrn Ur Amphetamines Screen U Benzodiazepines Scrn Urine Cocaine Screen U Marijuana (THC) Screen Ethyl Alcohol Acetone, Qual COVID-19 (BRENDA) COVID-19 Clin Com 04/16/21 04/16/21 04/16/21 05:18 05:18 05:23 WBC RBC Hgb Hct MCV MCH MCHC RDW Plt Count MPV Immature Gran % (Auto) Neut % (Auto) Lymph % (Auto) [place] % (Auto) Eos % (Auto) Baso % (Auto) Lymph # (Auto) [place] # (Auto) Eos # (Auto) Baso # (Auto) Abs Immat Gran (auto) Absolute Neuts (auto) Absolute Nucleated RBC Nucleated RBC % (auto) Neutrophils % (Manual) Band Neutrophils % Lymphocytes % (Manual) Atypical Lymphs % (Man) Monocytes % (Manual) Abs Neuts (Manual) Lymphocytes # (Manual) Atyp Lymphs # (Manual) Monocytes # (Manual) Toxic Granulation Toxic Vacuolation Dohle Bodies Platelet Estimate Plt Morphology Comment RBC Morphology Polychromasia [place] Cells Smear Path Review VBG pH 7.40 VBG pCO2 26 VBG pO2 38 VBG HCO3 16 L VBG O2 Saturation 66.0 VBG Base Excess -6.4 Sodium 152 H Potassium 3.2 L Chloride 120 H Carbon Dioxide 17 L Anion Gap 18 BUN 31 H Creatinine 1.00 Estim Creat Clear Calc 65.2 Estimated GFR > 60 POC Glucose 155 H Random Glucose 150 H D Lactic Acid Lactic Acid F/U @ 2Hr Calcium 8.2 L D Phosphorus 0.8 L* Magnesium 1.8 Total Bilirubin 0.2 Direct Bilirubin AST 19 ALT 15 Alkaline Phosphatase 149 H D Total Protein 5.3 L D Albumin 2.6 L D Lipase Urine Color Urine Appearance Urine pH Ur Specific [place] Urine Protein Urine Glucose (UA) Urine Ketones Urine Blood Urine Nitrite Ur Leukocyte Esterase Urine RBC Urine WBC Ur Squamous Epith Cells Ur Renal Epithelial Cell Amorphous Sediment Urine Bacteria Urine Test Urine Opiates Screen Urine Fentanyl Screen Ur Barbiturates Screen Ur Phencyclidine Scrn Ur Amphetamines Screen U Benzodiazepines Scrn Urine Cocaine Screen U Marijuana (THC) Screen Ethyl Alcohol Acetone, Qual COVID-19 (BRENDA) COVID-19 Clin Com 04/16/21 04/16/21 04/16/21 07:20 09:34 10:20 WBC RBC Hgb Hct MCV MCH MCHC RDW Plt Count MPV Immature Gran % (Auto) Neut % (Auto) Lymph % (Auto) [place] % (Auto) Eos % (Auto) Baso % (Auto) Lymph # (Auto) [place] # (Auto) Eos # (Auto) Baso # (Auto) Abs Immat Gran (auto) Absolute Neuts (auto) Absolute Nucleated RBC Nucleated RBC % (auto) Neutrophils % (Manual) Band Neutrophils % Lymphocytes % (Manual) Atypical Lymphs % (Man) Monocytes % (Manual) Abs Neuts (Manual) Lymphocytes # (Manual) Atyp Lymphs # (Manual) Monocytes # (Manual) Toxic Granulation Toxic Vacuolation Dohle Bodies Platelet Estimate Plt Morphology Comment RBC Morphology Polychromasia [place] Cells Smear Path Review VBG pH VBG pCO2 VBG pO2 VBG HCO3 VBG O2 Saturation VBG Base Excess Sodium 151 H Potassium 5.0 D Chloride 123 H Carbon Dioxide 16 L Anion Gap 17 BUN 28 H Creatinine 1.07 Estim Creat Clear Calc 63.2 Estimated GFR > 60 POC Glucose 180 H 169 H Random Glucose 181 H Lactic Acid Lactic Acid F/U @ 2Hr Calcium 7.7 L D Phosphorus Magnesium Total Bilirubin Direct Bilirubin AST ALT Alkaline Phosphatase Total Protein Albumin Lipase Urine Color Urine Appearance Urine pH Ur Specific [place] Urine Protein Urine Glucose (UA) Urine Ketones Urine Blood Urine Nitrite Ur Leukocyte Esterase Urine RBC Urine WBC Ur Squamous Epith Cells Ur Renal Epithelial Cell Amorphous Sediment Urine Bacteria Urine Test Urine Opiates Screen Urine Fentanyl Screen Ur Barbiturates Screen Ur Phencyclidine Scrn Ur Amphetamines Screen U Benzodiazepines Scrn Urine Cocaine Screen U Marijuana (THC) Screen Ethyl Alcohol Acetone, Qual COVID-19 (BRENDA) COVID-19 Clin Com 04/16/21 04/16/21 11:25 13:21 WBC RBC Hgb Hct MCV MCH MCHC RDW Plt Count MPV Immature Gran % (Auto) Neut % (Auto) Lymph % (Auto) [place] % (Auto) Eos % (Auto) Baso % (Auto) Lymph # (Auto) [place] # (Auto) Eos # (Auto) Baso # (Auto) Abs Immat Gran (auto) Absolute Neuts (auto) Absolute Nucleated RBC Nucleated RBC % (auto) Neutrophils % (Manual) Band Neutrophils % Lymphocytes % (Manual) Atypical Lymphs % (Man) Monocytes % (Manual) Abs Neuts (Manual) Lymphocytes # (Manual) Atyp Lymphs # (Manual) Monocytes # (Manual) Toxic Granulation Toxic Vacuolation Dohle Bodies Platelet Estimate Plt Morphology Comment RBC Morphology Polychromasia [place] Cells Smear Path Review VBG pH VBG pCO2 VBG pO2 VBG HCO3 VBG O2 Saturation VBG Base Excess Sodium Potassium Chloride Carbon Dioxide Anion Gap BUN Creatinine Estim Creat Clear Calc Estimated GFR POC Glucose 174 H 107 Random Glucose Lactic Acid Lactic Acid F/U @ 2Hr Calcium Phosphorus Magnesium Total Bilirubin Direct Bilirubin AST ALT Alkaline Phosphatase Total Protein Albumin Lipase Urine Color Urine Appearance Urine pH Ur Specific [place] Urine Protein Urine Glucose (UA) Urine Ketones Urine Blood Urine Nitrite Ur Leukocyte Esterase Urine RBC Urine WBC Ur Squamous Epith Cells Ur Renal Epithelial Cell Amorphous Sediment Urine Bacteria Urine Test Urine Opiates Screen Urine Fentanyl Screen Ur Barbiturates Screen Ur Phencyclidine Scrn Ur Amphetamines Screen U Benzodiazepines Scrn Urine Cocaine Screen U Marijuana (THC) Screen Ethyl Alcohol Acetone, Qual COVID-19 (BRENDA) COVID-19 Clin Com Microbiology Microbiology Results: Microbiology 04/15/21 18:44 Blood - Venous Blood Culture - Preliminary Prelim: GPC Gram Stain only 04/15/21 17:07 Blood - Venous Blood Culture - Preliminary Prelim: GPC Gram Stain only Progress Note: A&P Assessment and plan (1) Gram-positive bacteremia: Status: Acute (2) DKA (diabetic ketoacidosis): Status: Acute (3) Acute metabolic encephalopathy: Status: Acute (4) RUDI (acute kidney injury): Status: Acute (5) Substance abuse: Status: Acute Assessment and Plan: Assessment: 25-year-old lady with underlying history of polysubstance abuse, diabetes with poor compliance with insulin therapy admitted with metabolic encephalopathy secondary to polysubstance abuse and diabetic ketoacidosis requiring insulin drip Plan: Neuro: metabolic/toxic encephalopathy secondary to diabetic ketoacidosis and polysubstance abuse/withdrawal Continue to monitor. Remain significantly agitated requiring multiple sedatives despite high-dose Precedex drip. Cardiac: No acute issues. Pulmonary: No acute issues. Renal: Acute renal failure secondary to diabetic ketoacidosis, improving Non oliguric. Continue to monitor renal indices and urine output. Endo: Diabetic ketoacidosis, continues on insulin drip protocol. GI: No acute issues. ID: Leukocytosis with Gram-positive bacteremia. Continues on broad-spectrum antibiotics. Cultures are pending. Heme/Onc: No acute issues. Psych: No acute issues. Underlying history of depression and PTSD. Miscellaneous: No acute issues. Prophylaxis: Heparin Diet: NPO Critical care time spent: 45 minutes Quality Stroke Does the patient have a stroke diagnosis?: No VTE Prior VTE?: No VTE Risk Level:: Medical - moderate - high VTE Device Contraindication: Treatment Not Indicated VTE Drug Contraindication: N/A - Med Ordered
--- NOTE | 2021-04-16 14:53 | PC.NURSE ---
Addendum entered by Claudia Seals RN 04/16/21 17:49: DUE TO INCREASED AGITATION AND NEED FOR SEDATIVES THE DECISION WAS MADE TO INTUBATE FOR AIRWAY PROTECTION. INTUBATION SEDATION: ETOMIDATE AND PROPOFOL IVP. INTUBATED AT 1543 WITH 7.5/25 @ LIP. PULLED BACK TO 24 @ LIP POST CXR. VENT SETTINGS: AC 16/350/5/40%. CURRENT 02 99%. PRECEDEX GTT TURNED OFF AND SEDATION CHANGED TO PROPOFOL AND FENTANYL GTTS - SEE EMAR. OG TUBE PLACED AND TUBE FEEDS STARTED WITH GLUCERNA 20 ML/HR. BATHED, HAIR WASHED AND BRAIDED, PREVALON MATTRESS, WEDGES, AND HEELBOS UTILIZED. EXTENSIVE ORAL CARE PERFORMED. WHITE FILM NOTED TO TONGUE - MD NOTIFIED AND ORDERED NYSTATIN SWISH AND SWALLOW. LIP SCAB/DRY SKIN FELL OFF AND LIP MOISTURIZER APPLIED. LEFT CORNER OF LIP SLIT AND SCAB TO UPPER LIP NOTED. WILL CONTINUE TO MONITOR. Original Note: PTS FACE APPEARED FLUSHED AND SKIN HOT TO THE TOUCH. TEMPORAL TEMP 100.9 PT REFUSING TO OPEN MOUTH FOR ATTEMPT OF ORAL TEMP. RECTAL TEMP 102.4. MD NOTIFIED. WILL CONTINUE TO MONITOR.
[2021-04-16] MEDS: Midazolam HCl/PF 2 MG/2 ML VIAL IVPUSH ×2 (15:05→22:46)
[2021-04-16] MEDS: Acetaminophen Supp 650 MG SUPP.RECT PR (15:08)
[2021-04-16] MEDS: propofoL 200 MG/20 ML VIAL 100 MG IVPUSH (15:42)
[2021-04-16] MEDS: Etomidate 20 MG/10 ML VIAL 10 MG IVPUSH (15:42)
[2021-04-16] MEDS: propofoL 1,000 MG/100 ML VIAL 8.82 MG IVCONT (15:45)
[2021-04-16] MEDS: fentaNYL citrate/NS 1,000 MCG/100 ML PLAST..BAG 15 MCG IVCONT (15:45)
--- NOTE | 2021-04-16 15:48 | W.PM.CCHP ---
Procedures Date of Service Date of Service: 04/16/21 Intubation Intubation Comments: Patient with significant agitation and high requirement for sedatives intubated for airway protection with 7.5 cuffed ET tube under glide scope guidance with no immediate complications. X-ray for ET tube position is pending.
[2021-04-16] MEDS: Dextrose 5 % and Lactated Ring 1,000 ML 50 ML IVCONT (16:17)
[2021-04-16] MEDS: Chlorhexidine Gluc Oral Rinse 15 ML MOUTHWASH BUCCAL ×2 (16:18→19:55)
[2021-04-16 16:43] LABS: Glucose, Whole Blood 177 mg/dL (60-115)
[2021-04-16] MEDS: Nystatin Oral Susp 500,000 UNIT/5 ML ORAL.SUSP 100000 UNIT BUCCAL ×2 (16:59→19:59)
[2021-04-16 17:07] LABS: VBG HCO3 21 mmol/L (22-26); VBG pCO2 30 mmHg; VBG pH 7.47 (7.32-7.43); VBG pO2 51 mmHg
[2021-04-16 17:07] LABS: Venous Blood Gas Refer to POC result
[2021-04-16] MEDS: Albumin Human 25 % 100 ML IV ×2 (17:18→18:23)
[2021-04-16 17:22] LABS: Anion Gap 11 (12-20); Blood Urea Nitrogen 23 mg/dL (9-16); Carbon Dioxide 23 mmol/L (22-29); Creatinine Clr Calc Pharmacy 79.6
[2021-04-16 17:23] LABS: Calcium 7.9 mg/dL (8.4-10.2); Estimated Glomerular Filt Rate > 60; Glucose Random 180 mg/dL (60-115)
[2021-04-16 18:38] LABS: Glucose, Whole Blood 140 mg/dL (60-115)
[2021-04-16 18:41] LABS: Chloride 126 mmol/L (96-108); Potassium 2.8 mmol/L (3.3-5.1); Sodium 157 mmol/L (135-145)
[2021-04-16] MEDS: vancomycin HCL 750 MG in 0.9 % Sodium Chloride 250 ML 265 MG IV (19:53)
[2021-04-16] MEDS: fentaNYL citrate/NS 1,000 MCG/100 ML PLAST..BAG 20 MCG IVCONT (19:53)
[2021-04-16] MEDS: lamoTRIgine 25 MG TABLET 50 MG PO (19:54)
[2021-04-16] MEDS: Potassium Chloride/H20 40 MEQ/100 ML PIGGYBACK 50 MEQ IV ×2 (19:55→22:04)
[2021-04-16] MEDS: Lactated Ringers 1,000 ML 999 ML IV (20:23)
[2021-04-16] MEDS: Midazolam HCl/PF 2 MG/2 ML VIAL 4 MG IVPUSH (20:30)
[2021-04-16] MEDS: propofoL 1,000 MG/100 ML VIAL 14.7 MG IVCONT (20:45)
[2021-04-16 20:49] LABS: Glucose, Whole Blood 130 mg/dL (60-115)
[2021-04-16 22:22] LABS: Glucose, Whole Blood 145 mg/dL (60-115)
[2021-04-17] VITALS (30 sets, daily range): BP systolic 84–137; BP diastolic 37–67; PULSE 82–128; RESP 16–42; TEMP 34.3–39.2; O2SAT 96–100; BMI 20.4
[2021-04-17] MEDS: Midazolam HCl/NS 50 MG/50 ML PLAST..BAG IVCONT ×2 (00:04→15:18)
[2021-04-17] MEDS: Acetaminophen Supp 650 MG SUPP.RECT PR ×2 (00:25→05:53)
[2021-04-17] MEDS: fentaNYL citrate/NS 1,000 MCG/100 ML PLAST..BAG 20 MCG IVCONT ×5 (00:57→20:35)
[2021-04-17] MEDS: Heparin Sodium,Porcine 5,000 UNIT/ML VIAL 5000 UNIT SUBCUT ×3 (01:00→17:05)
[2021-04-17 01:39] LABS: Glucose, Whole Blood 214 mg/dL (60-115)
--- NOTE | 2021-04-17 03:09 | PC.NURSE ---
Assumed care from SHELIA Taylor at 19:00. Patient was restless and agitated on 50 mcg/kg/min of propofol and 200 of fentanyl gtt, was often breathing over ventilator and dysynchronous at rates of 40-50 breaths per minute; pupils at 2-3 mm and sluggish; positive cough and gag, moves all extremities; discussed with INFANT CAREGIVER and new order for one time 4 mg IV versed administed with good effect, then continued to have episodes of agitation and tachypnea, was given PRN versed 2 mg, and agitation continued. New order for Versed gtt and to titrate down propofol as tolerted; versed at 2, propofol weaned from 50 to 30. Patient now rests comfortably and becomes agitated with care, but is breathing around 26 breaths per minute. Patient is febrile, temporal artery temp was 101.7, rectal temp was 102.7; PRN tylenol WI was given about 00:30 with minimal effect, and ice packs were also applied to patient. Continues on vancomycin and zosyn; blood cultures from 04/16 returned 2/ positive with gram positive cocci in clusters. Continues on ventilator with #7.5 ETT, 24 cm katelyn, AC settings Rate 16; TV 350; Peep 5; FiO2 28% (weaned down from 40%); SpO2 continued in high 90's. Patient with minute volumes around 7.6-8.8. Heart sounds distant. BP soft, with MAP often 55-60, and INFANT CAREGIVER aware and ok with MAP in this range s/p 2 units of albumin on prior shift and 1 liter bolus of LR this shift and continuing on D5LR at 50 cc/hour. Patient continues on insulin gtt, titrated per INFANT CAREGIVER. Sinus rhythm on monitor often in 90's. Sanchez with urine output lexis color about 25 cc/hour over last 8 hours. Skin is intact but has small intact scabs scattered throughout, as well as sores in mouth with blackened teeth in areas and white patches on tongue.
[2021-04-17 03:36] LABS: Glucose, Whole Blood 240 mg/dL (60-115)
[2021-04-17 05:27] LABS: VBG Base Excess -2.5 mmol/L; VBG HCO3 20 mmol/L (22-26); VBG pCO2 27 mmHg; VBG pH 7.46 (7.32-7.43); VBG pO2 47 mmHg
[2021-04-17 05:33] LABS: Venous Blood Gas Refer to POC result
[2021-04-17 05:37] LABS: MANUAL DIFF FLAG NO
[2021-04-17 05:51] LABS: Basophils Percent Auto 0.1 % (0-2); Eosinophils Percent Auto 0.4 % (0-4); Hematocrit 27.9 % (37.0-47.0); Hemoglobin 9.2 g/dl (12.0-16.0); Imm Gran Pct Auto 0.9 % (0.0-0.4); Lymphocytes Absolute Auto 2.3 X10*3/uL (1.2-4.9); Lymphocytes Percent Auto 19.8 % (20-40); Mean Corpuscular Volume 78.8 fL (80.0-98.0); Mean Platelet Volume 10.5 fL (9.4-12.3); Monocytes Absolute Auto 0.4 X10*3/uL (0.1-1.2); Monocytes Percent Auto 3.3 % (2-11); Neutrophils Absolute Auto 8.6 x10*3/uL (2.0-8.3); Neutrophils Percent Auto 75.5 % (45-73); Platelet Count 199 X10*3/uL (160-400); Red Blood Count 3.54 X10*6/uL (4.20-5.50); Red Cell Distribution Width 13.2 % (11.0-16.0); White Blood Count 11.4 X10*3/uL (4.8-10.8)
[2021-04-17 05:54] LABS: Glucose, Whole Blood 277 mg/dL (60-115)
[2021-04-17] MEDS: Piperacillin Sodium/Tazobactam 3.375 GM in 0.9 % Sodium Chloride 50 ML IV ×3 (05:55→17:05)
[2021-04-17] MEDS: propofoL 1,000 MG/100 ML VIAL 11.76 MG IVCONT ×2 (06:03→13:57)
[2021-04-17 06:11] LABS: Albumin Level 2.8 g/dL (3.5-5.0); Anion Gap 11 (12-20); Blood Urea Nitrogen 17 mg/dL (9-16); Calcium 8.2 mg/dL (8.4-10.2); Carbon Dioxide 21 mmol/L (22-29); Chloride 128 mmol/L (96-108); Creatinine Clr Calc Pharmacy 82.4; Estimated Glomerular Filt Rate > 60; Glucose Random 318 mg/dL (60-115); Magnesium 1.8 mg/dL (1.6-2.6); Potassium 3.3 mmol/L (3.3-5.1); Sodium 157 mmol/L (135-145)
[2021-04-17] MEDS: fentaNYL citrate/PF 100 MCG/2 ML VIAL 50 MCG IVPUSH (06:16)
[2021-04-17] MEDS: Midazolam HCl/PF 2 MG/2 ML VIAL IVPUSH (06:16)
[2021-04-17] MEDS: vancomycin HCL 750 MG in 0.9 % Sodium Chloride 250 ML 265 MG IV (06:39)
[2021-04-17 07:35] LABS: Glucose, Whole Blood 277 mg/dL (60-115)
[2021-04-17] MEDS: Potassium Phosphate/NS 15 MMOL/250 ML PLAST..BAG 62.5 MMOL IV ×4 (07:43→19:23)
[2021-04-17 08:38] LABS: Glucose, Whole Blood 274 mg/dL (60-115)
--- NOTE | 2021-04-17 09:03 | MHC.CLN ---
Addendum entered by Darcie Crespo RD 04/17/21 11:06: PER MD ROUNDS, CONTINUE GLUCERNA AT 20 ML PER HOUR. PROVIDES 790 KCAL WITH SEDATION. MONITOR TUBE FEED TOLERANCE AND LYTES. Original Note: F/U PATIENT INTUBATED AND SEDATED 04/16. CURRENT BODY WEIGHT=50.7. BMI=20.4. TUBE FEEDING RECOMMENDATION: PROMOTE AT MAX GOAL RATE OF 45 ML PER HOUR. FLUSH 120 ML WATER EVERY 6 HOURS. PROVIDES 1390 KCAL WITH SEDATION (27.4 KCAL/KG); 67,5 G PROTEIN (1.33 G/KG); FREE WATER FORMULA PLUS [id number]=3835 ML (27.3 ML/KG) MONITOR LYTES AND TOLERANCE.
[2021-04-17] MEDS: Dextrose 5 % 1,000 ML 125 ML IVCONT (09:12)
[2021-04-17] MEDS: Albumin Human 25 % 100 ML IV ×3 (09:13→20:31)
[2021-04-17] MEDS: Magnesium Sulfate/H2O 2 GM/50 ML PIGGYBACK IV (09:13)
[2021-04-17] MEDS: Nystatin Oral Susp 500,000 UNIT/5 ML ORAL.SUSP 100000 UNIT BUCCAL ×3 (09:14→20:34)
[2021-04-17] MEDS: lamoTRIgine 25 MG TABLET 50 MG PO ×2 (09:14→20:36)
[2021-04-17] MEDS: Chlorhexidine Gluc Oral Rinse 15 ML MOUTHWASH BUCCAL ×3 (09:14→20:34)
[2021-04-17 10:25] LABS: Glucose, Whole Blood 148 mg/dL (60-115)
[2021-04-17 11:05] LABS: Glucose, Whole Blood 113 mg/dL (60-115)
--- NOTE | 2021-04-17 11:12 | P.PNCC_ITS ---
Subjective Subjective Date of Service: 04/17/21 Interval History: 25-year-old lady with underlying history of polysubstance abuse including heroin, cocaine, amphetamine, diabetes mellitus with poor compliance with insulin therapy, multiple prior admissions for DKA admitted on 04/15/2021 with alteration of mental status. On ER evaluation patient was noted to have metabolic encephalopathy secondary to underlying diabetic ketoacidosis. Central venous access was placed secondary to inability to place peripheral venous access. Patient has been started on insulin drip and IV fluid resus citation. Patient was also noted to have blood cultures positive for gram- positive cocci. She is continue on broad-spectrum antibiotic coverage. Patient also has significant agitation despite high-dose Precedex drip requiring intubation for airway protection 04/16/2021. No events overnight. Sedation requirements remain high. Critical Care Time (minutes): 45 Physical Exam Vital Signs: Vital Signs: Last Vital Signs Temp 100.9 F H 04/17/21 11:00 Pulse 90 04/17/21 11:00 Resp 22 H 04/17/21 11:00 BP 99/41 L 04/17/21 11:00 Pulse Ox 98 04/17/21 11:00 BMI result Body Mass Index 20.4 Const: General: no acute distress and other ( Sedated on the vent) Nutritional Appearance: thin Eyes: Sclerae: sclerae normal EOM: EOMs intact bilaterally Neck: Neck: Yes no lymphadenopathy, Yes trachea midline and Yes supple Resp: Effort & Inspection: normal respiratory effort and no respiratory distress Auscultation: clear to auscultation bilaterally Cardio: Rate: regular rate Rhythm: regular rhythm Heart sounds: no gall ops, no murmurs and no rubs GI: Palpation (GI): Soft to palpation and Other GI palpation findings present ( Nontender) Auscultation: normal bowel sounds Extrem: General: Yes no pedal edema, No clubbing and No cyanosis Objective Data Labs CBC & Chem 7: 04/17/21 05:19 04/17/21 05:19 Labs: Laboratory Results - last 24 hr 04/16/21 04/16/21 04/16/21 11:25 13:21 16:36 WBC RBC Hgb Hct MCV MCH MCHC RDW Plt Count MPV Immature Gran % (Auto) Neut % (Auto) Lymph % (Auto) Dewitt % (Auto) Eos % (Auto) Baso % (Auto) Lymph # (Auto) Dewitt # (Auto) Eos # (Auto) Baso # (Auto) Abs Immat Gran (auto) Absolute Neuts (auto) Absolute Nucleated RBC Nucleated RBC % (auto) VBG pH VBG pCO2 VBG pO2 VBG HCO3 VBG O2 Saturation VBG Base Excess Sodium Potassium Chloride Carbon Dioxide Anion Gap BUN Creatinine Estim Creat Clear Calc Estimated GFR POC Glucose 174 H 107 177 H Random Glucose Calcium Phosphorus Magnesium Albumin 04/16/21 04/16/21 04/16/21 16:56 17:01 18:35 WBC RBC Hgb Hct MCV MCH MCHC RDW Plt Count MPV Immature Gran % (Auto) Neut % (Auto) Lymph % (Auto) Dewitt % (Auto) Eos % (Auto) Baso % (Auto) Lymph # (Auto) Dewitt # (Auto) Eos # (Auto) Baso # (Auto) Abs Immat Gran (auto) Absolute Neuts (auto) Absolute Nucleated RBC Nucleated RBC % (auto) VBG pH 7.47 H VBG pCO2 30 VBG pO2 51 VBG HCO3 21 L VBG O2 Saturation 84.0 VBG Base Excess -1.0 Sodium 157 H Potassium 2.8 L D Chloride 126 H Carbon Dioxide 23 Anion Gap 11 L BUN 23 H Creatinine 0.85 Estim Creat Clear Calc 79.6 Estimated GFR > 60 POC Glucose 140 H Random Glucose 180 H Calcium 7.9 L Phosphorus Magnesium Albumin 04/16/21 04/16/21 04/17/21 20:39 22:16 01:35 WBC RBC Hgb Hct MCV MCH MCHC RDW Plt Count MPV Immature Gran % (Auto) Neut % (Auto) Lymph % (Auto) Dewitt % (Auto) Eos % (Auto) Baso % (Auto) Lymph # (Auto) Dewitt # (Auto) Eos # (Auto) Baso # (Auto) Abs Immat Gran (auto) Absolute Neuts (auto) Absolute Nucleated RBC Nucleated RBC % (auto) VBG pH VBG pCO2 VBG pO2 VBG HCO3 VBG O2 Saturation VBG Base Excess Sodium Potassium Chloride Carbon Dioxide Anion Gap BUN Creatinine Estim Creat Clear Calc Estimated GFR POC Glucose 130 H 145 H 214 H Random Glucose Calcium Phosphorus Magnesium Albumin 04/17/21 04/17/21 04/17/21 03:32 05:19 05:19 WBC 11.4 H RBC 3.54 L Hgb 9.2 L Hct 27.9 L MCV 78.8 L MCH 26.0 L MCHC 33.0 RDW 13.2 Plt Count 199 D MPV 10.5 Immature Gran % (Auto) 0.9 H Neut % (Auto) 75.5 H Lymph % (Auto) 19.8 L Dewitt % (Auto) 3.3 Eos % (Auto) 0.4 Baso % (Auto) 0.1 Lymph # (Auto) 2.3 Dewitt # (Auto) 0.4 Eos # (Auto) 0.0 Baso # (Auto) 0.0 Abs Immat Gran (auto) 0.10 H Absolute Neuts (auto) 8.6 H Absolute Nucleated RBC 0.000 Nucleated RBC % (auto) 0.0 VBG pH VBG pCO2 VBG pO2 VBG HCO3 VBG O2 Saturation VBG Base Excess Sodium 157 H Potassium 3.3 Chloride 128 H Carbon Dioxide 21 L Anion Gap 11 L BUN 17 H Creatinine 0.84 Estim Creat Clear Calc 82.4 Estimated GFR > 60 POC Glucose 240 H Random Glucose 318 H Calcium 8.2 L Phosphorus 1.0 L* Magnesium 1.8 Albumin 2.8 L 04/17/21 04/17/21 04/17/21 05:20 05:50 07:30 WBC RBC Hgb Hct MCV MCH MCHC RDW Plt Count MPV Immature Gran % (Auto) Neut % (Auto) Lymph % (Auto) Dewitt % (Auto) Eos % (Auto) Baso % (Auto) Lymph # (Auto) Dewitt # (Auto) Eos # (Auto) Baso # (Auto) Abs Immat Gran (auto) Absolute Neuts (auto) Absolute Nucleated RBC Nucleated RBC % (auto) VBG pH 7.46 H VBG pCO2 27 VBG pO2 47 VBG HCO3 20 L VBG O2 Saturation 79.0 VBG Base Excess -2.5 Sodium Potassium Chloride Carbon Dioxide Anion Gap BUN Creatinine Estim Creat Clear Calc Estimated GFR POC Glucose 277 H 277 H Random Glucose Calcium Phosphorus Magnesium Albumin 04/17/21 04/17/21 04/17/21 08:34 10:22 11:00 WBC RBC Hgb Hct MCV MCH MCHC RDW Plt Count MPV Immature Gran % (Auto) Neut % (Auto) Lymph % (Auto) Dewitt % (Auto) Eos % (Auto) Baso % (Auto) Lymph # (Auto) Dewitt # (Auto) Eos # (Auto) Baso # (Auto) Abs Immat Gran (auto) Absolute Neuts (auto) Absolute Nucleated RBC Nucleated RBC % (auto) VBG pH VBG pCO2 VBG pO2 VBG HCO3 VBG O2 Saturation VBG Base Excess Sodium Potassium Chloride Carbon Dioxide Anion Gap BUN Creatinine Estim Creat Clear Calc Estimated GFR POC Glucose 274 H 148 H 113 Random Glucose Calcium Phosphorus Magnesium Albumin Microbiology Microbiology Results: Microbiology 04/16/21 10:19 Blood - Venous Blood Culture - Preliminary Prelim: GPC Gram Stain only 04/16/21 05:35 Blood - Venous Blood Culture - Preliminary Staphylococcus aureus 04/15/21 18:44 Blood - Venous Blood Culture - Preliminary Staphylococcus aureus 04/15/21 17:07 Blood - Venous Blood Culture - Preliminary Staphylococcus aureus Progress Note: A&P Assessment and plan (1) Drug withdrawal: Status: Acute (2) Gram-positive bacteremia: Status: Acute (3) Acute metabolic encephalopathy: Status: Acute (4) RUDI (acute kidney injury): Status: Acute (5) Unspecified toxic encephalopathy: Status: Acute Assessment and Plan: Assessment: 25-year-old lady with underlying history of polysubstance abuse, diabetes with poor compliance with insulin therapy admitted with metabolic encephalopathy secondary to polysubstance abuse and diabetic ketoacidosis requiring insulin drip further complicated by polysubstance withdrawal with high sedation requirement requiring intubation for airway protection. Plan: Neuro: metabolic/toxic encephalopathy secondary to diabetic ketoacidosis and polysubstance abuse/withdrawal Continue to monitor. Remain significantly agitated requiring multiple sedative drips. Cardiac: No acute issues. Pulmonary: Intubated for airway protection secondary to high sedation requirements, continue to titrate off as tolerated. Renal: Acute renal failure secondary to diabetic ketoacidosis, improving Non oliguric. Continue to monitor renal indices and urine output. Endo: Diabetic ketoacidosis, Resolved. GI: No acute issues. ID: [id number] with Gram-positive bacteremia. Continues on broad-spectrum antibiotics. Cultures are pending. 2D echo is pending. Heme/Onc: No acute issues. Psych: No acute issues. Underlying history of depression and PTSD. Miscellaneous: No acute issues. Prophylaxis: Heparin, ppi Diet: Tube feeds Critical care time spent: 45 minutes Quality Stroke Does the patient have a stroke diagnosis?: No VTE Prior VTE?: No VTE Risk Level:: Medical - moderate - high VTE Device Contraindication: Treatment Not Indicated VTE Drug Contraindication: N/A - Med Ordered
[2021-04-17] MEDS: Insulin Regular/NS 100 UNIT/100 ML PLAST..BAG IVCONT (11:45)
--- NOTE | 2021-04-17 13:00 | CA_ITS ---
Transthoracic Echocardiogram Patient (Last, First, Middle): María Morgan, Gender: Female Date of : 1995 Age: 25 Procedure Date: 04/17/2021 Procedure Type: Transthoracic Echocardiogram Location: ICU Height: 157.48 cm Weight: 49.9 kg BSA: 1.48 m2 Heart Rate: bpm BP: 91 / 42 mmHg Ambulatory Service Representative: Referring MD: Jamar Lo MD Symptoms: bacteremia, ?endocarditis Study Quality: Fair ECG Rhythm: Sinus Conclusions: - Normal biventricular function. - No obvious vegetation noted. Findings Left Ventricle Normal left ventricular size, thickness, systolic function, and wall motion. The visually estimated ejection fraction is between 55-60%. Diastolic function is normal for age. Right Ventricle Normal right ventricular cavity size and systolic function. Atria Both atria are normal in size. Aortic Valve Normal aortic valve structure and function. There is no aortic valve stenosis. There is no aortic valve regurgitation. Mitral Valve Normal mitral valve structure and function. There is no mitral valve regurgitation. There is no mitral valve stenosis. Pulmonic Valve Normal pulmonic valve structure and function. Tricuspid Valve There is mild posterior tricuspid leaflet thickening. There is trace tricuspid valve regurgitation. Significantly elevated right atrial pressure. There is no evidence of pulmonary hypertension. Great Vessels All visible segments of the aorta are normal in size. The visualized portions of the pulmonary artery and branches are normal. Venous The inferior vena cava is dilated and does not collapse with inspiration. Pericardium/Pleural There is no evidence of pericardial effusion. Prior Study Comparison No significant change compared to prior study dated: 01/06/2021. Measurements 2D Linear Measurements IVSd: 0.88 0.6-0.9/0.6-1.0 cm LVIDd: 4.02 3.9-5.3/4.2-5.9 cm LVIDd Index: 2.72 2.4-3.2/2.2-3.1 cm/m2 LVIDs: 2.96 2.0-3.6 cm LVPWd: 0.89 0.7-1.1 cm LV Mass: 134.10 67-162/88-224 g LV Mass Index: 90.61 43-95/49-115 g/m2 2D Systolic Function EF 4C: 56.30 >55% EF 2C: 52.70 >55% EF BiP: 53.10 >55% Tricuspid Valve TR Pk Garret: 1.94 TR Pk Grad: 15.00 RVSP: 30.00 Updated in Other Vendor System with Status of Final Constantine Montalvo MD electronically signed on 04/17/2021 3:55:46 PM with status of Final
[2021-04-17 13:08] LABS: Glucose, Whole Blood 97 mg/dL (60-115)
[2021-04-17 13:52] LABS: Anion Gap 8 (12-20); Blood Urea Nitrogen 14 mg/dL (9-16); Calcium 7.7 mg/dL (8.4-10.2); Carbon Dioxide 26 mmol/L (22-29); Chloride 131 mmol/L (96-108); Creatinine Clr Calc Pharmacy 97.4; Estimated Glomerular Filt Rate > 60; Glucose Random 102 mg/dL (60-115); Potassium 2.9 mmol/L (3.3-5.1); Sodium 162 mmol/L (135-145)
[2021-04-17] MEDS: Potassium Chloride/H20 40 MEQ/100 ML PIGGYBACK 100 MEQ IV ×2 (14:23→15:27)
[2021-04-17 14:58] LABS: Glucose, Whole Blood 173 mg/dL (60-115)
[2021-04-17] MEDS: Dextrose 5 % 1,000 ML 250 ML IVCONT ×2 (15:18→19:18)
[2021-04-17 16:56] LABS: Glucose, Whole Blood 228 mg/dL (60-115)
[2021-04-17 17:34] LABS: Vancomycin Trough 8.2 mcg/mL (10.0-20.0)
[2021-04-17 17:43] LABS: Anion Gap 12 (12-20); Blood Urea Nitrogen 14 mg/dL (9-16); Calcium 7.4 mg/dL (8.4-10.2); Carbon Dioxide 21 mmol/L (22-29); Chloride 126 mmol/L (96-108); Estimated Glomerular Filt Rate > 60; Glucose Random 257 mg/dL (60-115); Magnesium 2.3 mg/dL (1.6-2.6); Phosphorus 3.4 mg/dL (2.7-4.5); Potassium 4.7 mmol/L (3.3-5.1); Sodium 155 mmol/L (135-145)
[2021-04-17 18:06] LABS: Glucose, Whole Blood 241 mg/dL (60-115)
[2021-04-17] MEDS: propofoL 1,000 MG/100 ML VIAL 8.82 MG IVCONT (18:10)
[2021-04-17] MEDS: vancomycin HCL 1,000 MG in 0.9 % Sodium Chloride 250 ML 270 MG IV (18:11)
[2021-04-17 18:41] LABS: Glucose, Whole Blood 230 mg/dL (60-115)
[2021-04-17 19:32] LABS: Glucose, Whole Blood 231 mg/dL (60-115)
--- NOTE | 2021-04-17 20:20 | ECG_ITS ---
Test Reason : cp Blood Pressure : / mmHG Vent. Rate : 084 BPM Atrial Rate : 084 BPM P-R Int : 146 ms QRS Dur : 072 ms QT Int : 364 ms P-R-T Axes : 045 055 004 degrees QTc Int : 430 ms Normal sinus rhythm Normal ECG When compared to the previous EKG of Vent. rate has decreased Referred By: Magno Johns Electronically Signed By:LISSETTE NOLASCO MD
[2021-04-17 20:52] LABS: Glucose, Whole Blood 149 mg/dL (60-115)
[2021-04-18] VITALS (32 sets, daily range): BP systolic 89–145; BP diastolic 44–89; PULSE 82–134; RESP 16–58; TEMP 34.8–39; O2SAT 91–100; BMI 22.2
[2021-04-18 00:16] LABS: Anion Gap 11 (12-20); Blood Urea Nitrogen 12 mg/dL (9-16); Calcium 7.2 mg/dL (8.4-10.2); Carbon Dioxide 22 mmol/L (22-29); Chloride 124 mmol/L (96-108); Creatinine Clr Calc Pharmacy 97.4; Estimated Glomerular Filt Rate > 60; Glucose Random 189 mg/dL (60-115); Phosphorus 4.2 mg/dL (2.7-4.5); Potassium 4.5 mmol/L (3.3-5.1); Sodium 152 mmol/L (135-145)
[2021-04-18] MEDS: Piperacillin Sodium/Tazobactam 3.375 GM in 0.9 % Sodium Chloride 50 ML IV ×3 (00:16→11:18)
[2021-04-18 00:38] LABS: Glucose, Whole Blood 154 mg/dL (60-115)
[2021-04-18 00:38] LABS: Glucose, Whole Blood 118 mg/dL (60-115)
[2021-04-18 00:49] LABS: Glucose, Whole Blood 202 mg/dL (60-115)
[2021-04-18] MEDS: fentaNYL citrate/NS 1,000 MCG/100 ML PLAST..BAG 20 MCG IVCONT ×2 (01:08→05:50)
[2021-04-18] MEDS: Heparin Sodium,Porcine 5,000 UNIT/ML VIAL 5000 UNIT SUBCUT ×3 (01:08→17:34)
[2021-04-18] MEDS: Albumin Human 25 % 100 ML IV (03:01)
[2021-04-18 03:03] LABS: Glucose, Whole Blood 237 mg/dL (60-115)
[2021-04-18 03:03] LABS: Glucose, Whole Blood 228 mg/dL (60-115)
[2021-04-18] MEDS: Dextrose 5 % 1,000 ML 100 ML IVCONT ×3 (03:08→22:59)
[2021-04-18 05:01] LABS: Glucose, Whole Blood 254 mg/dL (60-115)
[2021-04-18] MEDS: propofoL 1,000 MG/100 ML VIAL 8.82 MG IVCONT (05:14)
[2021-04-18 05:24] LABS: Glucose, Whole Blood 214 mg/dL (60-115)
[2021-04-18 05:27] LABS: VBG Base Excess -4.2 mmol/L; VBG HCO3 20 mmol/L (22-26); VBG pCO2 35 mmHg; VBG pH 7.36 (7.32-7.43); VBG pO2 58 mmHg
[2021-04-18 05:28] LABS: Venous Blood Gas Refer to POC result
[2021-04-18 05:49] LABS: Glucose, Whole Blood 198 mg/dL (60-115)
[2021-04-18 06:03] LABS: Basophils Percent Auto 0.1 % (0-2); Eosinophils Absolute Auto 0.1 X10*3/uL (0.0-0.4); Eosinophils Percent Auto 0.8 % (0-4); Mean Platelet Volume 10.6 fL (9.4-12.3); PLT CLUMP 1; SCAN SMEAR FLAG 1
[2021-04-18 06:05] LABS: Hematocrit 24.7 % (37.0-47.0); Imm Gran Abs Auto 0.08 X10*3/uL (0.00-0.03); Imm Gran Pct Auto 0.8 % (0.0-0.4); Lymphocytes Absolute Auto 2.6 X10*3/uL (1.2-4.9); Lymphocytes Percent Auto 24.6 % (20-40); Mean Corpuscular HGB Conc 32.4 g/dl (31.0-35.0); Mean Corpuscular Hemoglobin 26.1 pg (27.0-33.0); Mean Corpuscular Volume 80.5 fL (80.0-98.0); Monocytes Absolute Auto 0.2 X10*3/uL (0.1-1.2); Monocytes Percent Auto 2.3 % (2-11); Neutrophils Absolute Auto 7.5 x10*3/uL (2.0-8.3); Neutrophils Percent Auto 71.4 % (45-73); Red Blood Count 3.07 X10*6/uL (4.20-5.50); Red Cell Distribution Width 14.3 % (11.0-16.0)
[2021-04-18 06:07] LABS: MANUAL DIFF FLAG NO; White Blood Count 10.5 X10*3/uL (4.8-10.8)
[2021-04-18] MEDS: vancomycin HCL 1,000 MG in 0.9 % Sodium Chloride 250 ML 270 MG IV ×2 (06:22→18:12)
[2021-04-18 06:27] LABS: Albumin Level 3.4 g/dL (3.5-5.0); Anion Gap 11 (12-20); Blood Urea Nitrogen 13 mg/dL (9-16); Calcium 7.4 mg/dL (8.4-10.2); Carbon Dioxide 22 mmol/L (22-29); Chloride 121 mmol/L (96-108); Creatinine Clr Calc Pharmacy 97.4; Estimated Glomerular Filt Rate > 60; Glucose Random 244 mg/dL (60-115); Phosphorus 2.8 mg/dL (2.7-4.5); Potassium 4.1 mmol/L (3.3-5.1); Sodium 150 mmol/L (135-145)
[2021-04-18 06:29] LABS: Platelet Count 98 X10*3/uL (160-400)
[2021-04-18 07:08] LABS: Glucose, Whole Blood 206 mg/dL (60-115)
[2021-04-18 08:13] LABS: Glucose, Whole Blood 172 mg/dL (60-115)
[2021-04-18] MEDS: Chlorhexidine Gluc Oral Rinse 15 ML MOUTHWASH BUCCAL ×2 (09:15→13:07)
[2021-04-18] MEDS: lamoTRIgine 25 MG TABLET 50 MG PO (09:15)
[2021-04-18] MEDS: Lactulose 20 GM/30 ML SOLUTION 30 GM PO (09:15)
[2021-04-18] MEDS: Nystatin Oral Susp 500,000 UNIT/5 ML ORAL.SUSP 100000 UNIT BUCCAL ×2 (09:15→13:07)
[2021-04-18 09:18] LABS: Glucose, Whole Blood 138 mg/dL (60-115)
[2021-04-18 11:04] LABS: Glucose, Whole Blood 129 mg/dL (60-115)
[2021-04-18] MEDS: fentaNYL citrate/NS 1,000 MCG/100 ML PLAST..BAG 10 MCG IVCONT (11:18)
[2021-04-18] MEDS: Insulin Regular/NS 100 UNIT/100 ML PLAST..BAG IVCONT (11:19)
[2021-04-18] MEDS: Acetaminophen 325 MG TABLET 650 MG OG-TUBE (12:25)
[2021-04-18 13:03] LABS: Glucose, Whole Blood 166 mg/dL (60-115)
--- NOTE | 2021-04-18 13:12 | PM.CCPN ---
Subjective Subjective Date of Service: 04/18/21 Interval History: 25-year-old lady with underlying history of polysubstance abuse including heroin, cocaine, amphetamine, diabetes mellitus with poor compliance with insulin therapy, multiple prior admissions for DKA admitted on 04/15/2021 with alteration of mental status. On ER evaluation patient was noted to have metabolic encephalopathy secondary to underlying diabetic ketoacidosis. Central venous access was placed secondary to inability to place peripheral venous access. Patient has been started on insulin drip and IV fluid resuscitation. Patient was also noted to have blood cultures positive for gram-positive cocci. She is continue on broad-spectrum antibiotic coverage. Patient also has significant agitation despite high-dose Precedex drip requiring intubation for airway protection 04/16/2021. No events overnight. Sedation requirements remain high. DKA has resolved. Critical Care Time (minutes): 45 Physical Exam Vital Signs: Vital Signs: Last Vital Signs Temp 101.3 F H 04/18/21 12:00 Pulse 98 04/18/21 12:00 Resp 26 H 04/18/21 12:00 BP 105/63 04/18/21 12:00 Pulse Ox 98 04/18/21 12:00 BMI result Body Mass Index 22.2 Const: General: no acute distress and other ( Sedated on the vent) Eyes: Sclerae: sclerae normal EOM: EOMs intact bilaterally Neck: Neck: Yes no lymphadenopathy, Yes trachea midline and Yes supple Resp: Effort & Inspection: normal respiratory effort and no respiratory distress Auscultation: clear to auscultation bilaterally Cardio: Rate: regular rate Rhythm: regular rhythm Heart sounds: no gallops, no murmurs and no rubs GI: Palpation (GI): Soft to palpation and Other GI palpation findings present ( Nontender) Auscultation: normal bowel sounds Extrem: General: Yes no pedal edema, No clubbing and No cyanosis Objective Data Labs CBC & Chem 7: 04/18/21 05:15 04/18/21 05:15 Labs: Laboratory Results - last 24 hr 04/17/21 04/17/21 04/17/21 13:20 14:55 16:52 WBC RBC Hgb Hct MCV MCH MCHC RDW Plt Count MPV Immature Gran % (Auto) Neut % (Auto) Lymph % (Auto) [place] % (Auto) Eos % (Auto) Baso % (Auto) Lymph # (Auto) [place] # (Auto) Eos # (Auto) Baso # (Auto) Abs Immat Gran (auto) Absolute Neuts (auto) Absolute Nucleated RBC Nucleated RBC % (auto) VBG pH VBG pCO2 VBG pO2 VBG HCO3 VBG O2 Saturation VBG Base Excess Sodium 162 H* Potassium 2.9 L Chloride 131 H Carbon Dioxide 26 Anion Gap 8 L BUN 14 Creatinine 0.71 Estim Creat Clear Calc 97.4 Estimated GFR > 60 POC Glucose 173 H Random Glucose 102 Calcium 7.7 L D Phosphorus Magnesium Albumin Vancomycin Trough 8.2 L 04/17/21 04/17/21 04/17/21 16:52 16:53 18:02 WBC RBC Hgb Hct MCV MCH MCHC RDW Plt Count MPV Immature Gran % (Auto) Neut % (Auto) Lymph % (Auto) [place] % (Auto) Eos % (Auto) Baso % (Auto) Lymph # (Auto) [place] # (Auto) Eos # (Auto) Baso # (Auto) Abs Immat Gran (auto) Absolute Neuts (auto) Absolute Nucleated RBC Nucleated RBC % (auto) VBG pH VBG pCO2 VBG pO2 VBG HCO3 VBG O2 Saturation VBG Base Excess Sodium 155 H Potassium 4.7 D Chloride 126 H Carbon Dioxide 21 L Anion Gap 12 BUN 14 Creatinine 0.76 Estim Creat Clear Calc 91.0 Estimated GFR > 60 POC Glucose 228 H 241 H Random Glucose 257 H Calcium 7.4 L Phosphorus 3.4 Magnesium 2.3 Albumin Vancomycin Trough 04/17/21 04/17/21 04/17/21 18:38 19:28 20:47 WBC RBC Hgb Hct MCV MCH MCHC RDW Plt Count MPV Immature Gran % (Auto) Neut % (Auto) Lymph % (Auto) [place] % (Auto) Eos % (Auto) Baso % (Auto) Lymph # (Auto) [place] # (Auto) Eos # (Auto) Baso # (Auto) Abs Immat Gran (auto) Absolute Neuts (auto) Absolute Nucleated RBC Nucleated RBC % (auto) VBG pH VBG pCO2 VBG pO2 VBG HCO3 VBG O2 Saturation VBG Base Excess Sodium Potassium Chloride Carbon Dioxide Anion Gap BUN Creatinine Estim Creat Clear Calc Estimated GFR POC Glucose 230 H 231 H 149 H Random Glucose Calcium Phosphorus Magnesium Albumin Vancomycin Trough 04/17/21 04/17/21 04/17/21 22:13 23:34 23:45 WBC RBC Hgb Hct MCV MCH MCHC RDW Plt Count MPV Immature Gran % (Auto) Neut % (Auto) Lymph % (Auto) [place] % (Auto) Eos % (Auto) Baso % (Auto) Lymph # (Auto) [place] # (Auto) Eos # (Auto) Baso # (Auto) Abs Immat Gran (auto) Absolute Neuts (auto) Absolute Nucleated RBC Nucleated RBC % (auto) VBG pH VBG pCO2 VBG pO2 VBG HCO3 VBG O2 Saturation VBG Base Excess Sodium 152 H Potassium 4.5 Chloride 124 H Carbon Dioxide 22 Anion Gap 11 L BUN 12 Creatinine 0.71 Estim Creat Clear Calc 97.4 Estimated GFR > 60 POC Glucose 118 H 154 H Random Glucose 189 H Calcium 7.2 L Phosphorus 4.2 Magnesium 2.0 Albumin Vancomycin Trough 04/18/21 04/18/21 04/18/21 00:46 01:55 02:58 WBC RBC Hgb Hct MCV MCH MCHC RDW Plt Count MPV Immature Gran % (Auto) Neut % (Auto) Lymph % (Auto) [place] % (Auto) Eos % (Auto) Baso % (Auto) Lymph # (Auto) [place] # (Auto) Eos # (Auto) Baso # (Auto) Abs Immat Gran (auto) Absolute Neuts (auto) Absolute Nucleated RBC Nucleated RBC % (auto) VBG pH VBG pCO2 VBG pO2 VBG HCO3 VBG O2 Saturation VBG Base Excess Sodium Potassium Chloride Carbon Dioxide Anion Gap BUN Creatinine Estim Creat Clear Calc Estimated GFR POC Glucose 202 H 228 H 237 H Random Glucose Calcium Phosphorus Magnesium Albumin Vancomycin Trough 04/18/21 04/18/21 04/18/21 03:56 05:01 05:15 WBC 10.5 RBC 3.07 L Hgb 8.0 L Hct 24.7 L MCV 80.5 MCH 26.1 L MCHC 32.4 RDW 14.3 Plt Count 98 L D MPV 10.6 Immature Gran % (Auto) 0.8 H Neut % (Auto) 71.4 Lymph % (Auto) 24.6 [place] % (Auto) 2.3 Eos % (Auto) 0.8 Baso % (Auto) 0.1 Lymph # (Auto) 2.6 [place] # (Auto) 0.2 Eos # (Auto) 0.1 Baso # (Auto) 0.0 Abs Immat Gran (auto) 0.08 H Absolute Neuts (auto) 7.5 Absolute Nucleated RBC 0.000 Nucleated RBC % (auto) 0.0 VBG pH VBG pCO2 VBG pO2 VBG HCO3 VBG O2 Saturation VBG Base Excess Sodium Potassium Chloride Carbon Dioxide Anion Gap BUN Creatinine Estim Creat Clear Calc Estimated GFR POC Glucose 254 H 214 H Random Glucose Calcium Phosphorus Magnesium Albumin Vancomycin Trough 04/18/21 04/18/21 04/18/21 05:15 05:21 05:45 WBC RBC Hgb Hct MCV MCH MCHC RDW Plt Count MPV Immature Gran % (Auto) Neut % (Auto) Lymph % (Auto) [place] % (Auto) Eos % (Auto) Baso % (Auto) Lymph # (Auto) [place] # (Auto) Eos # (Auto) Baso # (Auto) Abs Immat Gran (auto) Absolute Neuts (auto) Absolute Nucleated RBC Nucleated RBC % (auto) VBG pH 7.36 VBG pCO2 35 VBG pO2 58 VBG HCO3 20 L VBG O2 Saturation 85.0 VBG Base Excess -4.2 Sodium 150 H Potassium 4.1 Chloride 121 H Carbon Dioxide 22 Anion Gap 11 L BUN 13 Creatinine 0.71 Estim Creat Clear Calc 97.4 Estimated GFR > 60 POC Glucose 198 H Random Glucose 244 H Calcium 7.4 L Phosphorus 2.8 Magnesium 2.0 Albumin 3.4 L D Vancomycin Trough 04/18/21 04/18/21 04/18/21 07:05 07:56 08:58 WBC RBC Hgb Hct MCV MCH MCHC RDW Plt Count MPV Immature Gran % (Auto) Neut % (Auto) Lymph % (Auto) [place] % (Auto) Eos % (Auto) Baso % (Auto) Lymph # (Auto) [place] # (Auto) Eos # (Auto) Baso # (Auto) Abs Immat Gran (auto) Absolute Neuts (auto) Absolute Nucleated RBC Nucleated RBC % (auto) VBG pH VBG pCO2 VBG pO2 VBG HCO3 VBG O2 Saturation VBG Base Excess Sodium Potassium Chloride Carbon Dioxide Anion Gap BUN Creatinine Estim Creat Clear Calc Estimated GFR POC Glucose 206 H 172 H 138 H Random Glucose Calcium Phosphorus Magnesium Albumin Vancomycin Trough 04/18/21 04/18/21 10:52 13:00 WBC RBC Hgb Hct MCV MCH MCHC RDW Plt Count MPV Immature Gran % (Auto) Neut % (Auto) Lymph % (Auto) [place] % (Auto) Eos % (Auto) Baso % (Auto) Lymph # (Auto) [place] # (Auto) Eos # (Auto) Baso # (Auto) Abs Immat Gran (auto) Absolute Neuts (auto) Absolute Nucleated RBC Nucleated RBC % (auto) VBG pH VBG pCO2 VBG pO2 VBG HCO3 VBG O2 Saturation VBG Base Excess Sodium Potassium Chloride Carbon Dioxide Anion Gap BUN Creatinine Estim Creat Clear Calc Estimated GFR POC Glucose 129 H 166 H Random Glucose Calcium Phosphorus Magnesium Albumin Vancomycin Trough Microbiology Microbiology Results: Microbiology 04/16/21 10:19 Blood - Venous Blood Culture - Preliminary Staphylococcus aureus 04/16/21 05:35 Blood - Venous Blood Culture - Preliminary Staphylococcus aureus 04/15/21 18:44 Blood - Venous Blood Culture - Preliminary Staphylococcus aureus 04/15/21 17:07 Blood - Venous Blood Culture - Preliminary Staphylococcus aureus Progress Note: A&P Assessment and plan (1) Unspecified toxic encephalopathy: Status: Acute (2) Drug withdrawal: Status: Acute (3) Gram-positive bacteremia: Status: Acute (4) DKA (diabetic ketoacidosis): Status: Acute (5) Refeeding syndrome: Status: Acute (6) Acute metabolic encephalopathy: Status: Acute Assessment and Plan: Assessment: 25-year-old lady with underlying history of polysubstance abuse, diabetes with poor compliance with insulin therapy admitted with metabolic encephalopathy secondary to polysubstance abuse and diabetic ketoacidosis requiring insulin drip further complicated by polysubstance withdrawal with high sedation requirement requiring intubation for airway protection. Plan: Neuro: metabolic/toxic encephalopathy secondary to diabetic ketoacidosis and polysubstance abuse/withdrawal Continue to monitor. Remain significantly agitated requiring multiple sedative drips. Cardiac: No acute issues. Pulmonary: Intubated for airway protection secondary to high sedation requirements, continue to titrate off as tolerated. Renal: Acute renal failure secondary to diabetic ketoacidosis, resolved. Refeeding syndrome, continue to monitor and replete electrolytes as necessary. Non oliguric. Continue to monitor renal indices and urine output. Endo: Diabetic ketoacidosis, Resolved. GI: No acute issues. ID: Leukocytosis with staphylococcal bacteremia. Continue Vancomycin. 2D echo without evidence of endocarditis. Heme/Onc: No acute issues. Psych: No acute issues. Underlying history of depression and PTSD. Miscellaneous: No acute issues. Prophylaxis: Heparin, ppi Diet: Tube feeds Critical care time spent: 45 minutes Quality Stroke Does the patient have a stroke diagnosis?: No VTE Prior VTE?: No VTE Risk Level:: Medical - moderate - high VTE Device Contraindication: Treatment Not Indicated VTE Drug Contraindication: N/A - Med Ordered
[2021-04-18] MEDS: Midazolam HCl/PF 2 MG/2 ML VIAL IVPUSH ×3 (14:30→23:33)
[2021-04-18] MEDS: Insulin Glargine,Hum.rec.anlog 100 UNIT/ML 10 ML VIAL 40 UNIT SUBCUT (14:50)
[2021-04-18 15:13] LABS: Glucose, Whole Blood 172 mg/dL (60-115)
--- NOTE | 2021-04-18 15:28 | MHC.CM.PN ---
Pt extubated today - DKA improving - pt with extensive past hx of leaving treatment AMA: active substance abuse: has been placed via [address] [facility] however, she abandoned the program and hitchhiked back to the [facility]. Pt does not have a fixed address. Pt will need to be seen by CARE team prior to d/c and by CM to inquire on assistance with fpc placement.
[2021-04-18 17:56] LABS: Glucose, Whole Blood 215 mg/dL (60-115)
[2021-04-18] MEDS: Insulin Lispro 100 UNIT/ML 3 ML VIAL SUBCUT ×2 (18:06→23:39)
[2021-04-18 19:16] LABS: Anion Gap 13 (12-20); Blood Urea Nitrogen 11 mg/dL (9-16); Calcium 7.8 mg/dL (8.4-10.2); Carbon Dioxide 22 mmol/L (22-29); Chloride 118 mmol/L (96-108); Creatinine Clr Calc Pharmacy 97.4; Estimated Glomerular Filt Rate > 60; Glucose Random 262 mg/dL (60-115); Potassium 3.5 mmol/L (3.3-5.1); Sodium 149 mmol/L (135-145)
[2021-04-18] MEDS: fentaNYL citrate/PF 100 MCG/2 ML VIAL IVPUSH (19:29)
[2021-04-18] MEDS: Potassium Chloride/H20 40 MEQ/100 ML PIGGYBACK 50 MEQ IV (20:22)
[2021-04-18] MEDS: Acetaminophen Supp 650 MG SUPP.RECT PR (20:43)
[2021-04-18 23:39] LABS: Glucose, Whole Blood 197 mg/dL (60-115)
[2021-04-19] VITALS (24 sets, daily range): BP systolic 128–148; BP diastolic 64–91; PULSE 96–130; RESP 11–45; TEMP 36.7–39.4; O2SAT 93–100; BMI 22.1
[2021-04-19] MEDS: Heparin Sodium,Porcine 5,000 UNIT/ML VIAL 5000 UNIT SUBCUT ×3 (01:55→19:33)
[2021-04-19] MEDS: Acetaminophen Supp 650 MG SUPP.RECT PR (02:38)
[2021-04-19] MEDS: Midazolam HCl/PF 2 MG/2 ML VIAL IVPUSH ×3 (03:13→19:33)
[2021-04-19] MEDS: fentaNYL citrate/PF 100 MCG/2 ML VIAL 50 MCG IVPUSH (05:22)
[2021-04-19 05:34] LABS: VBG HCO3 25 mmol/L (22-26); VBG pCO2 25 mmHg; VBG pH 7.61 (7.32-7.43); VBG pO2 43 mmHg
[2021-04-19 06:00] LABS: Glucose, Whole Blood 89 mg/dL (60-115)
[2021-04-19 06:16] LABS: Basophils Percent Auto 0.2 % (0-2); Hemoglobin 8.4 g/dl (12.0-16.0); Imm Gran Pct Auto 0.6 % (0.0-0.4); MANUAL DIFF FLAG SCAN; PLT CLUMP 1; SCAN SMEAR FLAG 1
[2021-04-19 06:18] LABS: Hematocrit 25.5 % (37.0-47.0); Imm Gran Abs Auto 0.09 X10*3/uL (0.00-0.03); Lymphocytes Absolute Auto 2.3 X10*3/uL (1.2-4.9); Lymphocytes Percent Auto 14.4 % (20-40); Mean Corpuscular HGB Conc 32.9 g/dl (31.0-35.0); Mean Corpuscular Hemoglobin 25.7 pg (27.0-33.0); Mean Platelet Volume 10.9 fL (9.4-12.3); Monocytes Absolute Auto 0.5 X10*3/uL (0.1-1.2); Monocytes Percent Auto 3.4 % (2-11); Neutrophils Absolute Auto 12.9 x10*3/uL (2.0-8.3); Neutrophils Percent Auto 81.4 % (45-73); Red Blood Count 3.27 X10*6/uL (4.20-5.50)
[2021-04-19 06:37] LABS: Vancomycin Trough 6.8 mcg/mL (10.0-20.0)
[2021-04-19 06:44] LABS: Platelet Count 108 X10*3/uL (160-400); White Blood Count 15.8 X10*3/uL (4.8-10.8)
[2021-04-19 06:45] LABS: SLIDE REVIEW VERIFIED
[2021-04-19 06:49] LABS: Albumin Level 3.2 g/dL (3.5-5.0); Anion Gap 11 (12-20); Blood Urea Nitrogen 6 mg/dL (9-16); Calcium 8.2 mg/dL (8.4-10.2); Carbon Dioxide 25 mmol/L (22-29); Chloride 115 mmol/L (96-108); Creatinine Clr Calc Pharmacy 115.3; Estimated Glomerular Filt Rate > 60; Glucose Random 93 mg/dL (60-115); Magnesium 1.5 mg/dL (1.6-2.6); Phosphorus < 0.7 mg/dL (2.7-4.5); Potassium 2.9 mmol/L (3.3-5.1); Sodium 148 mmol/L (135-145)
[2021-04-19] MEDS: Potassium Phosphate/NS 15 MMOL/250 ML PLAST..BAG 62.5 MMOL IV ×5 (07:19→21:08)
[2021-04-19] MEDS: vancomycin HCL 1,000 MG in 0.9 % Sodium Chloride 250 ML 270 MG IV ×2 (07:19→16:03)
--- NOTE | 2021-04-19 07:31 | HE.PHANOTE ---
VANCOMYCIN DOSING ADDENDUM Pt previously on 1 gram Q12H with trough of 6.8; increased dose to 1 gram Q8H with predicted AUC of 482. Next trough to be drawn on 04/19/21 @2200. Kalpana Tucker RPh
[2021-04-19 08:55] LABS: Venous Blood Gas Refer to POC result
[2021-04-19] MEDS: Dextrose 5 % 1,000 ML 75 ML IVCONT (09:38)
[2021-04-19] MEDS: lamoTRIgine 25 MG TABLET 50 MG PO ×2 (09:43→21:06)
[2021-04-19] MEDS: Insulin Glargine,Hum.rec.anlog 100 UNIT/ML 10 ML VIAL 40 UNIT SUBCUT (09:45)
[2021-04-19] MEDS: Albumin Human 25 % 100 ML IV ×3 (09:45→21:06)
[2021-04-19] MEDS: Nystatin Oral Susp 500,000 UNIT/5 ML ORAL.SUSP 100000 UNIT BUCCAL ×3 (09:54→21:05)
[2021-04-19] MEDS: Magnesium Sulfate/H2O 2 GM/50 ML PIGGYBACK IV (09:54)
[2021-04-19 11:51] LABS: Glucose, Whole Blood 70 mg/dL (60-115)
--- NOTE | 2021-04-19 12:03 | PC.NURSE ---
POC AT 1200 = 70. NOTIFIED - ORDERED AND ADMINISTERED D50 AMP X 1. ENCOURAGED PO INTAKE - DIET GINGERALE AND PUDDING. SLOW TO EAT/NEEDS ENCOURAGEMENT. WILL CONTINUE TO MONITOR.
--- NOTE | 2021-04-19 13:00 | PM.CCPN ---
Subjective Subjective Date of Service: 04/19/21 Interval History: ICU day 5 for diabetic ketoacidosis, refeeding syndrome, polysubstance withdrawal, toxic/metabolic encephalopathy, staphylococcal bacteremia 25-year-old lady with underlying history of polysubstance abuse including heroin, cocaine, amphetamine, diabetes mellitus with poor compliance with insulin therapy, multiple prior admissions for DKA admitted on 04/15/2021 with alteration of mental status. On ER evaluation patient was noted to have metabolic encephalopathy secondary to underlying diabetic ketoacidosis. Central venous access was placed secondary to inability to place peripheral venous access. Patient has been started on insulin drip and IV fluid resuscitation. Patient was also noted to have blood cultures positive for Staphylococcus. Her 2D echocardiogram showed no valvular vegetation. She continues on vancomycin. Patient also has significant agitation despite high-dose Precedex drip requiring intubation for airway protection 04/16/2021. Extubated 04/18/2021. Continues to require aggressive electrolyte replacements secondary to underlying refeeding syndrome. No events overnight. Critical Care Time (minutes): 45 Physical Exam Vital Signs: Vital Signs: Last Vital Signs Temp 100.0 F 04/19/21 12:00 Pulse 99 04/19/21 12:00 Resp 36 H 04/19/21 12:00 BP 133/83 04/19/21 12:00 Pulse Ox 96 04/19/21 12:00 BMI result Body Mass Index 22.1 Const: General: no acute distress, lethargic (Arousable) and other (Multiple skin abrasion throughout) Nutritional Appearance: thin Orientation/consciousness: lethargic (Arousable) Eyes: Sclerae: sclerae normal EOM: EOMs intact bilaterally Neck: Neck: Yes no lymphadenopathy, Yes trachea midline and Yes supple Resp: Effort & Inspection: normal respiratory effort and no respiratory distress Auscultation: clear to auscultation bilaterally Cardio: Rate: regular rate Rhythm: regular rhythm Heart sounds: no gallops, no murmurs and no rubs GI: Palpation (GI): Soft to palpation and Other GI palpation findings present ( Nontender) Auscultation: normal bowel sounds Extrem: General: Yes no pedal edema, No clubbing and No cyanosis Objective Data Labs CBC & Chem 7: 04/19/21 05:20 04/19/21 05:20 Labs: Laboratory Results - last 24 hr 04/18/21 04/18/2104/18/22 13:00 15:07 17:53 WBC RBC Hgb Hct MCV MCH MCHC RDW Plt Count MPV Immature Gran % (Auto) Neut % (Auto) Lymph % (Auto) [place] % (Auto) Eos % (Auto) Baso % (Auto) Lymph # (Auto) [place] # (Auto) Eos # (Auto) Baso # (Auto) Abs Immat Gran (auto) Absolute Neuts (auto) Absolute Nucleated RBC Nucleated RBC % (auto) Smear Tech's Comments VBG pH VBG pCO2 VBG pO2 VBG HCO3 VBG O2 Saturation VBG Base Excess Sodium Potassium Chloride Carbon Dioxide Anion Gap BUN Creatinine Estim Creat Clear Calc Estimated GFR POC Glucose 166 H 172 H 215 H Random Glucose Calcium Phosphorus Magnesium Albumin Vancomycin Trough 04/18/21 04/18/21 04/19/21 18:23 23:35 05:20 WBC RBC Hgb Hct MCV MCH MCHC RDW Plt Count MPV Immature Gran % (Auto) Neut % (Auto) Lymph % (Auto) [place] % (Auto) Eos % (Auto) Baso % (Auto) Lymph # (Auto) [place] # (Auto) Eos # (Auto) Baso # (Auto) Abs Immat Gran (auto) Absolute Neuts (auto) Absolute Nucleated RBC Nucleated RBC % (auto) Smear Tech's Comments VBG pH VBG pCO2 VBG pO2 VBG HCO3 VBG O2 Saturation VBG Base Excess Sodium 149 H Potassium 3.5 Chloride 118 H Carbon Dioxide 22 Anion Gap 13 BUN 11 Creatinine 0.71 Estim Creat Clear Calc 97.4 Estimated GFR > 60 POC Glucose 197 H Random Glucose 262 H Calcium 7.8 L Phosphorus Magnesium Albumin Vancomycin Trough 6.8 L 04/19/21 04/19/21 04/19/21 05:20 05:20 05:23 WBC 15.8 H RBC 3.27 L Hgb 8.4 L Hct 25.5 L MCV 78.0 L MCH 25.7 L MCHC 32.9 RDW 14.0 Plt Count 108 L MPV 10.9 Immature Gran % (Auto) 0.6 H Neut % (Auto) 81.4 H Lymph % (Auto) 14.4 L [place] % (Auto) 3.4 Eos % (Auto) 0.0 Baso % (Auto) 0.2 Lymph # (Auto) 2.3 [place] # (Auto) 0.5 Eos # (Auto) 0.0 Baso # (Auto) 0.0 Abs Immat Gran (auto) 0.09 H Absolute Neuts (auto) 12.9 H Absolute Nucleated RBC 0.000 Nucleated RBC % (auto) 0.0 Smear Tech's Comments VERIFIED VBG pH 7.61 H* VBG pCO2 25 VBG pO2 43 VBG HCO3 25 VBG O2 Saturation 78.0 VBG Base Excess 5.0 Sodium 148 H Potassium 2.9 L Chloride 115 H Carbon Dioxide 25 Anion Gap 11 L BUN 6 L Creatinine 0.60 Estim Creat Clear Calc 115.3 Estimated GFR > 60 POC Glucose Random Glucose 93 Calcium 8.2 L Phosphorus < 0.7 L* Magnesium 1.5 L Albumin 3.2 L Vancomycin Trough 04/19/21 04/19/21 05:56 11:47 WBC RBC Hgb Hct MCV MCH MCHC RDW Plt Count MPV Immature Gran % (Auto) Neut % (Auto) Lymph % (Auto) [place] % (Auto) Eos % (Auto) Baso % (Auto) Lymph # (Auto) [place] # (Auto) Eos # (Auto) Baso # (Auto) Abs Immat Gran (auto) Absolute Neuts (auto) Absolute Nucleated RBC Nucleated RBC % (auto) Smear Tech's Comments VBG pH VBG pCO2 VBG pO2 VBG HCO3 VBG O2 Saturation VBG Base Excess Sodium Potassium Chloride Carbon Dioxide Anion Gap BUN Creatinine Estim Creat Clear Calc Estimated GFR POC Glucose 89 70 Random Glucose Calcium Phosphorus Magnesium Albumin Vancomycin Trough Microbiology Microbiology Results: Microbiology 04/18/21 10:55 Blood - Venous Blood Culture - Preliminary Prelim: GPC Gram Stain only 04/18/21 10:41 Blood - Venous Blood Culture - Preliminary Prelim: GPC Gram Stain only 04/16/21 10:19 Blood - Venous Blood Culture - Final Staphylococcus aureus 04/16/21 05:35 Blood - Venous Blood Culture - Final Staphylococcus aureus 04/15/21 17:07 Blood - Venous Blood Culture - Final Staphylococcus aureus 04/15/21 18:44 Blood - Venous Blood Culture - Final Staphylococcus aureus Progress Note: A&P Assessment and plan (1) Refeeding syndrome: Status: Acute (2) Unspecified toxic encephalopathy: Status: Acute (3) Drug withdrawal: Status: Acute (4) Gram-positive bacteremia: Status: Acute (5) Diabetes mellitus type 1: Status: Acute (6) RUDI (acute kidney injury): Status: Acute Assessment and Plan: Assessment: 25-year-old lady with underlying history of polysubstance abuse, diabetes with poor compliance with insulin therapy admitted with metabolic encephalopathy secondary to polysubstance abuse and diabetic ketoacidosis requiring insulin drip further complicated by polysubstance withdrawal with high sedation requirement requiring intubation for airway protection. Plan: Neuro: metabolic/toxic encephalopathy secondary to diabetic ketoacidosis and polysubstance abuse/withdrawal, improved significantly. Cardiac: No acute issues. Pulmonary: Intubated for airway protection secondary to high sedation requirements, extubated 04/18/2021. Renal: Acute renal failure secondary to diabetic ketoacidosis, resolved. Refeeding syndrome, continue to monitor and replete electrolytes as necessary. Non oliguric. Continue to monitor renal indices and urine output. Endo: Diabetic ketoacidosis, Resolved. GI: No acute issues. ID: Leukocytosis with staphylococcal bacteremia. Continue Vancomycin. 2D echo without evidence of endocarditis. Heme/Onc: No acute issues. Psych: No acute issues. Underlying history of depression and PTSD. Miscellaneous: No acute issues. Prophylaxis: Heparin, ppi Diet: Tube feeds Critical care time spent: 45 minutes Quality Stroke Does the patient have a stroke diagnosis?: No VTE Prior VTE?: No VTE Risk Level:: Medical - moderate - high VTE Device Contraindication: Treatment Not Indicated VTE Drug Contraindication: N/A - Med Ordered
[2021-04-19 18:10] LABS: Glucose, Whole Blood 89 mg/dL (60-115)
[2021-04-19 19:09] LABS: Anion Gap 13 (12-20); Blood Urea Nitrogen 5 mg/dL (9-16); Calcium 7.9 mg/dL (8.4-10.2); Carbon Dioxide 24 mmol/L (22-29); Chloride 111 mmol/L (96-108); Creatinine Clr Calc Pharmacy 125.8; Estimated Glomerular Filt Rate > 60; Glucose Random 66 mg/dL (60-115); Magnesium 1.8 mg/dL (1.6-2.6); Phosphorus 3.3 mg/dL (2.7-4.5); Sodium 145 mmol/L (135-145)
[2021-04-19 21:20] LABS: Glucose, Whole Blood 189 mg/dL (60-115)
[2021-04-19 22:19] LABS: Vancomycin Trough 14.6 mcg/mL (10.0-20.0)
[2021-04-19] MEDS: traZODone HCL 100 MG TABLET PO (23:11)
[2021-04-20] VITALS: BP 126/74; PULSE 92; RESP 18; TEMP 36.7; O2SAT 98
[2021-04-20] MEDS: vancomycin HCL 1,000 MG in 0.9 % Sodium Chloride 250 ML 270 MG IV (00:40)
[2021-04-20 01:06] LABS: Glucose, Whole Blood 373 mg/dL (60-115)
[2021-04-20] MEDS: Insulin Lispro 100 UNIT/ML 3 ML VIAL SUBCUT (01:07)
[2021-04-20] MEDS: Heparin Sodium,Porcine 5,000 UNIT/ML VIAL 5000 UNIT SUBCUT ×2 (01:08→09:40)
[2021-04-20] MEDS: Potassium Phosphate/NS 15 MMOL/250 ML PLAST..BAG 62.5 MMOL IV (03:33)
[2021-04-20] MEDS: ondansetron HCL 4 MG/2 ML VIAL IVPUSH (03:33)
[2021-04-20] MEDS: LORazepam 2 MG/ML VIAL IVPUSH (03:33)
[2021-04-20 04:00] VITALS: BP 129/78; PULSE 98; RESP 18; TEMP 37.7; O2SAT 99
[2021-04-20] MEDS: Albumin Human 25 % 100 ML IV (04:13)
[2021-04-20 05:57] LABS: Glucose, Whole Blood 97 mg/dL (60-115)
[2021-04-20 07:14] VITALS: BP 132/69; PULSE 104; RESP 18; TEMP 36.8; O2SAT 98
[2021-04-20 07:49] LABS: Glucose, Whole Blood 125 mg/dL (60-115)
[2021-04-20] MEDS: lamoTRIgine 25 MG TABLET 50 MG PO (08:03)
[2021-04-20] MEDS: cloNIDine HCL 0.1 MG TABLET PO (08:03)
[2021-04-20] MEDS: ceFAZolin Sodium/Dextrose,Iso 2 GM/50 ML PIGGYBACK IV (08:03)
[2021-04-20] MEDS: Insulin Glargine,Hum.rec.anlog 100 UNIT/ML 10 ML VIAL 40 UNIT SUBCUT (08:04)
[2021-04-20] MEDS: Nystatin Oral Susp 500,000 UNIT/5 ML ORAL.SUSP 100000 UNIT BUCCAL (08:04)
[2021-04-20 09:44] LABS: MANUAL DIFF FLAG NO
[2021-04-20 09:49] LABS: Basophils Percent Auto 0.2 % (0-2); Eosinophils Percent Auto 0.2 % (0-4); Hematocrit 22.7 % (37.0-47.0); Hemoglobin 7.6 g/dl (12.0-16.0); Imm Gran Abs Auto 0.09 X10*3/uL (0.00-0.03); Imm Gran Pct Auto 0.7 % (0.0-0.4); Lymphocytes Absolute Auto 2.1 X10*3/uL (1.2-4.9); Mean Corpuscular HGB Conc 33.5 g/dl (31.0-35.0); Mean Corpuscular Hemoglobin 25.5 pg (27.0-33.0); Mean Corpuscular Volume 76.2 fL (80.0-98.0); Mean Platelet Volume 11.2 fL (9.4-12.3); Monocytes Absolute Auto 0.5 X10*3/uL (0.1-1.2); Monocytes Percent Auto 3.7 % (2-11); Neutrophils Absolute Auto 10.2 x10*3/uL (2.0-8.3); Neutrophils Percent Auto 79.2 % (45-73); Platelet Count 104 X10*3/uL (160-400); Red Blood Count 2.98 X10*6/uL (4.20-5.50); White Blood Count 12.9 X10*3/uL (4.8-10.8)
[2021-04-20 09:53] LABS: VBG Base Excess 4.6 mmol/L; VBG HCO3 26 mmol/L (22-26); VBG pCO2 31 mmHg; VBG pH 7.54 (7.32-7.43); VBG pO2 56 mmHg
[2021-04-20 09:53] LABS: Venous Blood Gas Refer to POC result
[2021-04-20 10:04] LABS: Alanine Aminotransferase 22 U/L (0-31); Albumin Level 3.3 g/dL (3.5-5.0); Alkaline Phosphatase 80 U/L (39-117); Anion Gap 10 (12-20); Aspartate Amino Transferase 17 U/L (5-31); Bilirubin Total 0.8 mg/dL (0.0-1.0); Blood Urea Nitrogen 6 mg/dL (9-16); Calcium 7.2 mg/dL (8.4-10.2); Carbon Dioxide 26 mmol/L (22-29); Chloride 112 mmol/L (96-108); Creatinine Clr Calc Pharmacy 115.3; Estimated Glomerular Filt Rate > 60; Glucose Random 140 mg/dL (60-115); Magnesium 1.8 mg/dL (1.6-2.6); Phosphorus 3.8 mg/dL (2.7-4.5); Potassium 3.3 mmol/L (3.3-5.1); Sodium 145 mmol/L (135-145); Total Protein 5.3 g/dL (6.5-8.0)
[2021-04-20] MEDS: Buprenorphine/Naloxone 2/0.5mg FILM 1 FILM SUBLINGUAL (11:55)
[2021-04-20 11:58] LABS: Glucose, Whole Blood 85 mg/dL (60-115)
[2021-04-20 12:00] VITALS: BP 118/69; PULSE 92; RESP 17; TEMP 36.5; O2SAT 100
--- NOTE | 2021-04-20 12:11 | HO.ADDICT_ITS ---
History of Present Illness Date of Service: 04/20/2021 Chief Complaint: DKA Reason for Consult: NIALL eval and treat Requesting physician: Nakita Mendez Discussed with referring provider: Yes Sources of Information: patient interviewed and chart reviewed HPI Narrative: Patient is a 25 year old female with DMI and polysubstance use. several admissions secondary to AMS, endocarditis and DKA. Patient known to this keno writer / runner via previous evals and treatment here at [facility] Today patient seen in room 371. Awake, but intermittently falling asleep. Patient reports that she had been in treatment for almost 2 months at [facility] She states she received Vivitrol injection at time of discharge approx 03/23/2021. She reports using opioids and cocaine within the last week She has a boyfriend and is living with him in [place] She is requesting to start suboxone (of note, this is not patient's usual presentation as she usually declines any intervention once she is awake enough) She is reporting nausea, restlessness, irritability Past Psychiatric History: Never admitted, no formal psychiatric treatment for substance use Review of Systems Constitutional: Reports as per HPI Diagnostics Vital Signs (24Hr): Vital Signs - 24 hr 04/19/21 13:00 04/19/21 14:00 04/19/21 15:00 Temperature Pulse Rate 106 H 103 H 116 H Respiratory Rate 23 H 22 H 30 H Blood Pressure 136/82 128/91 H 136/76 Pulse Oximetry 93 98 99 04/19/21 16:00 04/19/21 17:00 04/19/21 18:00 Temperature 100.8 F H 100.6 F H 100.6 F H Pulse Rate 102 H 100 108 H Respiratory Rate 30 H 28 H 40 H Blood Pressure 138/64 135/84 129/86 Pulse Oximetry 98 97 100 04/19/21 19:00 04/19/21 20:00 04/19/21 21:00 Temperature 100.6 F H 100.6 F H 100.8 F H Pulse Rate 99 115 H 114 H Respiratory Rate 43 H 35 H 22 H Blood Pressure 132/87 148/89 H 131/75 Pulse Oximetry 99 97 96 04/19/21 22:00 04/19/21 22:48 04/20/21 00:00 Temperature 100.6 F H 98.0 F 98.1 F Pulse Rate 110 H 115 H 92 Respiratory Rate 45 H 18 18 Blood Pressure 139/82 137/75 126/74 Pulse Oximetry 96 96 98 04/20/21 04:00 04/20/21 07:14 Temperature 99.8 F 98.3 F Pulse Rate 98 104 H Respiratory Rate 18 18 Blood Pressure 129/78 132/69 Pulse Oximetry 99 98 BMI result Body Mass Index 22.1 Labs Results: 04/20/21 09:31 04/20/21 09:31 Labs: Laboratory Results - last 48 hr 04/18/21 04/18/21 04/18/21 13:00 15:07 17:53 WBC RBC Hgb Hct MCV MCH MCHC RDW Plt Count MPV Immature Gran % (Auto) Neut % (Auto) Lymph % (Auto) [place] % (Auto) Eos % (Auto) Baso % (Auto) Lymph # (Auto) [place] # (Auto) Eos # (Auto) Baso # (Auto) Abs Immat Gran (auto) Absolute Neuts (auto) Absolute Nucleated RBC Nucleated RBC % (auto) Smear Tech's Comments VBG pH VBG pCO2 VBG pO2 VBG HCO3 VBG O2 Saturation VBG Base Excess Sodium Potassium Chloride Carbon Dioxide Anion Gap BUN Creatinine Estim Creat Clear Calc Estimated GFR POC Glucose 166 H 172 H 215 H Random Glucose Calcium Phosphorus Magnesium Total Bilirubin AST ALT Alkaline Phosphatase Total Protein Albumin Vancomycin Trough 04/18/21 04/18/21 04/19/21 18:23 23:35 05:20 WBC RBC Hgb Hct MCV MCH MCHC RDW Plt Count MPV Immature Gran % (Auto) Neut % (Auto) Lymph % (Auto) [place] % (Auto) Eos % (Auto) Baso % (Auto) Lymph # (Auto) [place] # (Auto) Eos # (Auto) Baso # (Auto) Abs Immat Gran (auto) Absolute Neuts (auto) Absolute Nucleated RBC Nucleated RBC % (auto) Smear Tech's Comments VBG pH VBG pCO2 VBG pO2 VBG HCO3 VBG O2 Saturation VBG Base Excess Sodium 149 H Potassium 3.5 Chloride 118 H Carbon Dioxide 22 Anion Gap 13 BUN 11 Creatinine 0.71 Estim Creat Clear Calc 97.4 Estimated GFR > 60 POC Glucose 197 H Random Glucose 262 H Calcium 7.8 L Phosphorus Magnesium Total Bilirubin AST ALT Alkaline Phosphatase Total Protein Albumin Vancomycin Trough 6.8 L 04/19/21 04/19/21 04/19/21 05:20 05:20 05:23 WBC 15.8 H RBC 3.27 L Hgb 8.4 L Hct 25.5 L MCV 78.0 L MCH 25.7 L MCHC 32.9 RDW 14.0 Plt Count 108 L MPV 10.9 Immature Gran % (Auto) 0.6 H Neut % (Auto) 81.4 H Lymph % (Auto) 14.4 L [place] % (Auto) 3.4 Eos % (Auto) 0.0 Baso % (Auto) 0.2 Lymph # (Auto) 2.3 [place] # (Auto) 0.5 Eos # (Auto) 0.0 Baso # (Auto) 0.0 Abs Immat Gran (auto) 0.09 H Absolute Neuts (auto) 12.9 H Absolute Nucleated RBC 0.000 Nucleated RBC % (auto) 0.0 Smear Tech's Comments VERIFIED VBG pH 7.61 H* VBG pCO2 25 VBG pO2 43 VBG HCO3 25 VBG O2 Saturation 78.0 VBG Base Excess 5.0 Sodium 148 H Potassium 2.9 L Chloride 115 H Carbon Dioxide 25 Anion Gap 11 L BUN 6 L Creatinine 0.60 Estim Creat Clear Calc 115.3 Estimated GFR > 60 POC Glucose Random Glucose 93 Calcium 8.2 L Phosphorus < 0.7 L* Magnesium 1.5 L Total Bilirubin AST ALT Alkaline Phosphatase Total Protein Albumin 3.2 L Vancomycin Trough 04/19/21 04/19/21 04/19/21 05:56 11:47 18:04 WBC RBC Hgb Hct MCV MCH MCHC RDW Plt Count MPV Immature Gran % (Auto) Neut % (Auto) Lymph % (Auto) [place] % (Auto) Eos % (Auto) Baso % (Auto) Lymph # (Auto) [place] # (Auto) Eos # (Auto) Baso # (Auto) Abs Immat Gran (auto) Absolute Neuts (auto) Absolute Nucleated RBC Nucleated RBC % (auto) Smear Tech's Comments VBG pH VBG pCO2 VBG pO2 VBG HCO3 VBG O2 Saturation VBG Base Excess Sodium Potassium Chloride Carbon Dioxide Anion Gap BUN Creatinine Estim Creat Clear Calc Estimated GFR POC Glucose 89 70 89 Random Glucose Calcium Phosphorus Magnesium Total Bilirubin AST ALT Alkaline Phosphatase Total Protein Albumin Vancomycin Trough 04/19/21 04/19/21 04/19/21 18:19 21:17 21:54 WBC RBC Hgb Hct MCV MCH MCHC RDW Plt Count MPV Immature Gran % (Auto) Neut % (Auto) Lymph % (Auto) [place] % (Auto) Eos % (Auto) Baso % (Auto) Lymph # (Auto) [place] # (Auto) Eos # (Auto) Baso # (Auto) Abs Immat Gran (auto) Absolute Neuts (auto) Absolute Nucleated RBC Nucleated RBC % (auto) Smear Tech's Comments VBG pH VBG pCO2 VBG pO2 VBG HCO3 VBG O2 Saturation VBG Base Excess Sodium 145 Potassium 3.0 L Chloride 111 H Carbon Dioxide 24 Anion Gap 13 BUN 5 L Creatinine 0.55 Estim Creat Clear Calc 125.8 Estimated GFR > 60 POC Glucose 189 H Random Glucose 66 Calcium 7.9 L Phosphorus 3.3 Magnesium 1.8 Total Bilirubin AST ALT Alkaline Phosphatase Total Protein Albumin Vancomycin Trough 14.6 04/20/21 04/20/21 04/20/21 01:00 05:53 07:41 WBC RBC Hgb Hct MCV MCH MCHC RDW Plt Count MPV Immature Gran % (Auto) Neut % (Auto) Lymph % (Auto) [place] % (Auto) Eos % (Auto) Baso % (Auto) Lymph # (Auto) [place] # (Auto) Eos # (Auto) Baso # (Auto) Abs Immat Gran (auto) Absolute Neuts (auto) Absolute Nucleated RBC Nucleated RBC % (auto) Smear Tech's Comments VBG pH VBG pCO2 VBG pO2 VBG HCO3 VBG O2 Saturation VBG Base Excess Sodium Potassium Chloride Carbon Dioxide Anion Gap BUN Creatinine Estim Creat Clear Calc Estimated GFR POC Glucose 373 H* 97 125 H Random Glucose Calcium Phosphorus Magnesium Total Bilirubin AST ALT Alkaline Phosphatase Total Protein Albumin Vancomycin Trough 04/20/21 04/20/21 04/20/21 09:31 09:31 09:44 WBC 12.9 H RBC 2.98 L Hgb 7.6 L Hct 22.7 L MCV 76.2 L MCH 25.5 L MCHC 33.5 RDW 14.0 Plt Count 104 L MPV 11.2 Immature Gran % (Auto) 0.7 H Neut % (Auto) 79.2 H Lymph % (Auto) 16.0 L [place] % (Auto) 3.7 Eos % (Auto) 0.2 Baso % (Auto) 0.2 Lymph # (Auto) 2.1 [place] # (Auto) 0.5 Eos # (Auto) 0.0 Baso # (Auto) 0.0 Abs Immat Gran (auto) 0.09 H Absolute Neuts (auto) 10.2 H Absolute Nucleated RBC 0.000 Nucleated RBC % (auto) 0.0 Smear Tech's Comments VBG pH 7.54 H VBG pCO2 31 VBG pO2 56 VBG HCO3 26 VBG O2 Saturation 84.0 VBG Base Excess 4.6 Sodium 145 Potassium 3.3 Chloride 112 H Carbon Dioxide 26 Anion Gap 10 L BUN 6 L Creatinine 0.60 Estim Creat Clear Calc 115.3 Estimated GFR > 60 POC Glucose Random Glucose 140 H Calcium 7.2 L D Phosphorus 3.8 Magnesium 1.8 Total Bilirubin 0.8 AST 17 ALT 22 Alkaline Phosphatase 80 D Total Protein 5.3 L Albumin 3.3 L Vancomycin Trough 04/20/21 11:25 WBC RBC Hgb Hct MCV MCH MCHC RDW Plt Count MPV Immature Gran % (Auto) Neut % (Auto) Lymph % (Auto) [place] % (Auto) Eos % (Auto) Baso % (Auto) Lymph # (Auto) [place] # (Auto) Eos # (Auto) Baso # (Auto) Abs Immat Gran (auto) Absolute Neuts (auto) Absolute Nucleated RBC Nucleated RBC % (auto) Smear Tech's Comments VBG pH VBG pCO2 VBG pO2 VBG HCO3 VBG O2 Saturation VBG Base Excess Sodium Potassium Chloride Carbon Dioxide Anion Gap BUN Creatinine Estim Creat Clear Calc Estimated GFR POC Glucose 85 Random Glucose Calcium Phosphorus Magnesium Total Bilirubin AST ALT Alkaline Phosphatase Total Protein Albumin Vancomycin Trough Imaging Radiology Impressions: ITS Impressions Chest X-Ray 04/15/21 16:00 IMPRESSION: Right-sided central line placed as described. Chest X-Ray 04/16/21 16:15 IMPRESSION: Endotracheal tube with tip approximately 2 cm above the miguel ángel. Nasogastric tube seen traversing to the stomach. No significant acute parenchymal disease. Mental Status Exam Mental Status Exam Patient Appearance: Unkempt (skin and hair appear to be improving since last admission ) Level of Consciousness: Drowsy Patient Behavior: Restless and Anxious Mood Description: Anxious Affect Description: Blunted Thought Process: Linear Thought Content: positive for Goal Oriented Judgement: Fair Medications Medications Current Medications Acetaminophen (Acetaminophen 325 Mg Tablet) 650 mg OG-TUBE Q4H PRN PRN Reason: Fever Last Admin: 04/18/21 12:25 Dose: 650 mg Documented by: Acetaminophen (Acetaminophen Supp 650 Mg Supp.Rect) 650 mg [place] Q6H PRN PRN Reason: Fever >101 Last Admin: 04/19/21 02:38 Dose: 650 mg Documented by: Clonidine HCl (Clonidine Hcl 0.1 Mg Tablet) 0.1 mg PO TID [facility]; Protocol Last Admin: 04/20/21 08:03 Dose: 0.1 mg Documented by: Dextrose (Dextrose 50 % 25 Gm/50 Ml Vial) 25 gm IVPUSH Q15M PRN PRN Reason: per Hypoglycemia Standing Ord. Last Admin: 04/19/21 12:00 Dose: 25 gm Documented by: Heparin Sodium (Porcine) (Heparin Sodium,Porcine 5,000 Unit/Ml Vial) 5,000 unit SUBCUT Q8H [facility] Last Admin: 04/20/21 09:40 Dose: 5,000 unit Documented by: Cefazolin Sodium/Dextrose (Ancef) 2 gm in 50 mls @ 100 mls/hr IV Q8H [facility] Last Infusion: 04/20/21 09:43 Dose: Infused Documented by: Insulin Glargine (Insulin Glargine,Hum.Rec.Anlog 100 Unit/Ml 10 Ml Vial) 40 unit SUBCUT DAILY [facility] Last Admin: 04/20/21 08:04 Dose: 40 unit Documented by: Insulin Human Lispro (Insulin Lispro 100 Unit/Ml 3 Ml Vial) 0 unit SUBCUT Q6H [facility]; Protocol Last Admin: 04/20/21 12:00 Dose: Not Given Documented by: Lamotrigine (Lamotrigine 25 Mg Tablet) 50 mg PO BID [facility] Last Admin: 04/20/21 08:03 Dose: 50 mg Documented by: Lorazepam (Lorazepam 2 Mg/Ml Vial) 2 mg IVPUSH Q4H PRN PRN Reason: anxiety/restlessness Last Admin: 04/20/21 03:33 Dose: 2 mg Documented by: Naloxone HCl (Naloxone Hcl 0.4 Mg/Ml Vial) 0.2 mg IVPUSH Q2M PRN PRN Reason: Excessive sedation or RR < 8 Nystatin (Nystatin Oral Susp 500,000 Unit/5 Ml Oral.Susp) 100,000 unit BUCCAL TID [facility]; Protocol Stop: 04/21/21 16:44 Last Admin: 04/20/21 08:04 Dose: 100,000 unit Documented by: Omeprazole (Omeprazole 20 Mg/10 Ml Susp.Recon) 40 mg PO DAILY@0630 [facility] Last Admin: 04/20/21 05:59 Dose: 40 mg Documented by: Ondansetron HCl (Ondansetron Hcl 4 Mg/2 Ml Vial) 4 mg IVPUSH Q4H PRN PRN Reason: Nausea Pharmacy Consult (Consult Rx Perform Med Rec) 1 each MISCELLANE ONCE PRN PRN Reason: Consult order Pharmacy Consult (Consult Rx Vancomycin Dosing) 1 each MISCELLANE DAILY PRN PRN Reason: Consult order Trazodone HCl (Trazodone Hcl 100 Mg Tablet) 100 mg PO BEDTIME [facility] Last Admin: 04/19/21 23:11 Dose: 100 mg Documented by: Allergies Allergies Allergy/AdvReac Type Severity Reaction Status Date / Time No Known Allergies Allergy Verified 12/20/20 07:52 Assessment & Plan Assessment & Plan (1) Opioid use disorder, severe, dependence: Status: Acute Code(s): F11.20 - Opioid dependence, uncomplicated Assessment and Plan: * Suboxone 2mg ordered--discussed with RN who will administer dose once patient is more alert * Dose to be titrated to effect * need to set up with outpatient clinic to continue care * will continue to follow I spent _50 minutes with the patient and/or on the patient floor today, greater than?50% of which was spent counseling/coordinating care. [facility] Past Medical History Medical History (Updated 04/19/21 @ 13:12 by Jamar Lo MD) Anxiety Bacteremia Cocaine abuse Diabetes mellitus type 1 Endocarditis Heroin abuse Leukocytosis Polysubstance abuse Staphylococcus aureus bacteremia Substance abuse Social History Social History (Updated 04/20/21 @ 12:37 by Xiomara Louise CNP) Household Members: Other Household Members Other:: currently living with her boyfriend Housing: Apartment Do you presently have visiting nurse or other home services: No Patient Tobacco Use Status: Current everyday Tobacco user Tobacco use type: Cigarette Cigarette Packs Per Day: 1 Cigarettes Per Day: 20.0 Years Smoked: ''since I was 16'' e-Cigarette/Vaping Use: Former Use Second Hand Smoke Exposure: Yes Substance Use Type: Crack/Cocaine, IV Drugs, Opiates and Other Substance Use Frequency: Chronic Longstanding Last Used Substance: Just Prior to Admission Currently Displaying Signs/Symptoms of Drug Intoxication Withdrawal: Yes (mild opioiod withdrawal sx) Any prior treatment program specific to substance use: Yes ([address] c ommitment(s)) service: No Current occupational status: unemployed Sexual orientation: Straight/Heterosexual
--- NOTE | 2021-04-20 12:55 | MHC.CM.PN ---
EMR REVIEWED, PT'S 3RD SET OF BC'S HAVE RETURNED BACK POSITIVE, PER HOSPITALIST PT WILL NEED SNF PLACEMENT FOR 6WKS IV ABX, CM WILL PLACE REFERRALS AND CON'T TO MONITOR D/C NEEDS.
[2021-04-20 13:25] VITALS: BMI 22.1
--- NOTE | 2021-04-20 14:56 | P.DS_ITS ---
DS: Providers Provider Date of Service: 04/20/21 Date of admission: 04/15/21 17:10 Date of discharge: 04/20/21 Primary care physician: Alix Padilla MD Consults: 04/20/21 07:42 Addiction Medicine Routine Consulting Provider: Xiomara Louise Reason for consultation: polysub- opioid/fentayl/coaceine 04/20/21 07:47 Consult to Infectious Diseases Routine Consulting Provider: Gricelda Rivero Reason for consultation: MSSA bacteremia DS: Diagnosis Discharge Diagnosis (1) Opioid use disorder, severe, dependence: Status: Acute (2) Diabetes mellitus type 1: Status: Acute (3) RUDI (acute kidney injury): Status: Acute (4) Drug withdrawal: Status: Acute (5) Unspecified toxic encephalopathy: Status: Acute (6) Refeeding syndrome: Status: Acute (7) DKA (diabetic ketoacidosis): Status: Acute (8) Bacteremia due to methicillin susceptible Staphylococcus aureus (MSSA): Status: Acute (9) Cocaine use disorder, moderate, dependence: Status: Acute DS: Summary Hospital Course Hospital Course: from admission history and physical by carriage feeder Jamar Lo MD, 04/15/21: ?25-year-old lady with underlying history of polysubstance abuse including heroin, cocaine, amphetamine, diabetes mellitus with poor compliance with insulin therapy, multiple prior admissions for DKA admitted on 04/15/2021 with alteration of mental status.? On ER evaluation patient was noted to have metabolic encephalopathy secondary to underlying diabetic ketoacidosis.? Central venous access was placed secondary to inability to place peripheral venous access.? Patient has been started on insulin drip and IV fluid resuscitation.? She has received empiric broad-spectrum antibiotic coverage. She was admitted to the ICU for insulin drip. She developed significant agitation despite high-dose dexmetetomidine IV infusion and ended up requiring endotracheal intubation for airway protection on 04/16/21. She was extubated on 04/18/21. She developed refeeding syndrome and required aggressive electrolyte repletion. Blood cultures were positive for MSSA. Transthoracic echocardiography was negative for valvular vegetation. She was treated with vancomycin and changed to cefazolin upon step-down to the [facility] on 04/20/21. She was seen by Addiction Medicine and started on Suboxone. However, quite suddenly, she decided to sign out against medical advice on 04/20/21 despite extensive counseling on the risks of incompletely treated staphylococcal bacteremia. She was deemed competent to make her own decisions, as poor as they may be. She was instructed to return to the hospital as soon as possible to continue treatment. Time Spent with Patient Time attestation: Total time spent providing and/or coordinating discharge services: Discharge coordination time: Less than 30 minutes Quality: Stroke Does the patient have a stroke diagnosis?: No Physical Exam Vital Signs: Vital Signs: Last Vital Signs Temp 97.7 F 04/20/21 12:00 Pulse 92 04/20/21 12:00 Resp 17 04/20/21 12:00 BP 118/69 04/20/21 12:00 Pulse Ox 100 04/20/21 12:00 BMI result Body Mass Index 22.1 Gen: disheveled, chronically ill-appearing HEENT: sclera anicteric, moist mucus membranes Neck: supple Lungs: clear to auscultation bilaterally Heart: regular rate and rhythm, no murmurs Abd: soft, non-tender, non-distended Ext: no edema Skin: covered in scars and needle track castelan Neuro: alert and oriented x3, no focal findings Psych: restricted affect DS: Data Data Completed and Pending Completed studies during hospitalization [Text1]: Laboratory Results WBC 12.9 X10*3/uL (4.8-10.8) H 04/20/21 09:31 RBC 2.98 X10*6/uL (4.20-5.50) L 04/20/21 09:31 Hgb 7.6 g/dl (12.0-16.0) L 04/20/21 09:31 Hct 22.7 % (37.0-47.0) L 04/20/21 09:31 MCV 76.2 fL (80.0-98.0) L 04/20/21 09:31 MCH 25.5 pg (27.0-33.0) L 04/20/21 09:31 MCHC 33.5 g/dl (31.0-35.0) 04/20/21 09:31 RDW 14.0 % (11.0-16.0) 04/20/21 09:31 Plt Count 104 X10*3/uL (160-400) L 04/20/21 09:31 MPV 11.2 fL (9.4-12.3) 04/20/21 09:31 Immature Gran % (Auto) 0.7 % (0.0-0.4) H 04/20/21 09:31 Neut % (Auto) 79.2 % (45-73) H 04/20/21 09:31 Lymph % (Auto) 16.0 % (20-40) L 04/20/21 09:31 [place] % (Auto) 3.7 % (2-11) 04/20/21 09:31 Eos % (Auto) 0.2 % (0-4) 04/20/21 09:31 Baso % (Auto) 0.2 % (0-2) 04/20/21 09:31 Lymph # (Auto) 2.1 X10*3/uL (1.2-4.9) 04/20/21 09:31 [place] # (Auto) 0.5 X10*3/uL (0.1-1.2) 04/20/21 09:31 Eos # (Auto) 0.0 X10*3/uL (0.0-0.4) 04/20/21 09:31 Baso # (Auto) 0.0 X10*3/uL (0.0-0.2) 04/20/21 09:31 Abs Immat Gran (auto) 0.09 X10*3/uL (0.00-0.03) H 04/20/21 09:31 Absolute Neuts (auto) 10.2 x10*3/uL (2.0-8.3) H 04/20/21 09:31 Absolute Nucleated RBC 0.000 X10*3/uL (0.0-0.012) 04/20/21 09:31 Nucleated RBC % (auto) 0.0 /100WBC (0.0-0.2) 04/20/21 09:31 Neutrophils % (Manual) 74 % (45-73) H 04/16/21 05:18 Band Neutrophils % 22 % (3-5) H 04/16/21 05:18 Lymphocytes % (Manual) 2 % (20-40) L 04/16/21 05:18 Atypical Lymphs % (Man) 1 % (0-6) 04/16/21 05:18 Monocytes % (Manual) 1 % (2-11) L 04/16/21 05:18 Abs Neuts (Manual) 21.8 X10*3/uL (2.0-8.3) H 04/16/21 05:18 Lymphocytes # (Manual) 0.5 X10*3/uL (1.2-4.9) L 04/16/21 05:18 Atyp Lymphs # (Manual) 0.2 x10*3/uL 04/16/21 05:18 Monocytes # (Manual) 0.2 X10*3/uL (0.1-1.2) 04/16/21 05:18 Toxic Granulation PRESENT 04/15/21 16:12 Toxic Vacuolation PRESENT 04/16/21 05:18 [place]ohle Bodies PRESENT 04/15/21 16:12 Platelet Estimate NORMAL (NORMAL) 04/16/21 05:18 Plt Morphology Comment NORMAL 04/16/21 05:18 RBC Morphology NORMAL 04/16/21 05:18 Polychromasia 1+ (0-2) /OIF 04/15/21 16:12 [place] Cells 1+ (0-2) /OIF 04/15/21 16:12 Smear Tech's Comments VERIFIED 04/19/21 05:20 Smear Path Review SEE NOTE 04/15/21 16:12 VBG pH 7.54 (7.32-7.43) H 04/20/21 09:44 VBG pCO2 31 mmHg 04/20/21 09:44 VBG pO2 56 mmHg 04/20/21 09:44 VBG HCO3 26 mmol/L (22-26) 04/20/21 09:44 VBG O2 Saturation 84.0 % 04/20/21 09:44 VBG Base Excess 4.6 mmol/L 04/20/21 09:44 Sodium 145 mmol/L (135-145) 04/20/21 09:31 Potassium 3.3 mmol/L (3.3-5.1) 04/20/21 09:31 Chloride 112 mmol/L (96-108) H 04/20/21 09:31 Carbon Dioxide 26 mmol/L (22-29) 04/20/21 09:31 Anion Gap 10 (12-20) L 04/20/21 09:31 BUN 6 mg/dL (9-16) L 04/20/21 09:31 Creatinine 0.60 mg/dL (0.5-1.4) 04/20/21 09:31 Estim Creat Clear Calc 115.3 04/20/21 09:31 Estimated GFR > 60 04/20/21 09:31 POC Glucose 85 mg/dL (60-115) 04/20/21 11:25 Random Glucose 140 mg/dL (60-115) H 04/20/21 09:31 Lactic Acid 2.2 mmol/L (0.5-2.0) H* 04/15/21 16:12 Lactic Acid F/U @ 2Hr 1.8 mmol/L (0.5-2.0) 04/15/21 18:44 Calcium 7.2 mg/dL (8.4-10.2) L D 04/20/21 09:31 Phosphorus 3.8 mg/dL (2.7-4.5) 04/20/21 09:31 Magnesium 1.8 mg/dL (1.6-2.6) 04/20/21 09:31 Total Bilirubin 0.8 mg/dL (0.0-1.0) 04/20/21 09:31 Direct Bilirubin 0.3 mg/dL (0.0-0.5) 04/15/21 16:12 AST 17 U/L (5-31) 04/20/21 09:31 ALT 22 U/L (0-31) 04/20/21 09:31 Alkaline Phosphatase 80 U/L (39-117) D 04/20/21 09:31 Total Protein 5.3 g/dL (6.5-8.0) L 04/20/21 09:31 Albumin 3.3 g/dL (3.5-5.0) L 04/20/21 09:31 Lipase 20 U/L (8-78) 04/15/21 16:12 Urine Color YELLOW 04/15/21 17:58 Urine Appearance HAZY 04/15/21 17:58 Urine pH 5.5 (5.0-8.0) 04/15/21 17:58 Ur Specific [place] 1.025 (1.005-1.025) 04/15/21 17:58 Urine Protein 1+ MG/DL (NEG-TRACE) H 04/15/21 17:58 Urine Glucose (UA) >=1000 MG/DL (NEG) H 04/15/21 17:58 Urine Ketones >=80 MG/DL (NEG) 04/15/21 17:58 Urine Blood 2+ (NEG) H 04/15/21 17:58 Urine Nitrite NEG (NEG) 04/15/21 17:58 Ur Leukocyte Esterase NEG (NEG) 04/15/21 17:58 Urine RBC 5-9 /HPF (0) H 04/15/21 17:58 Urine WBC 0 /HPF (0-4) 04/15/21 17:58 Ur Squamous Epith Cells NONE /LPF 04/15/21 17:58 Ur Renal Epithelial Cell 1+ /LPF 04/15/21 17:58 Amorphous Sediment 1+ /LPF 04/15/21 17:58 Urine Bacteria NONE /LPF 04/15/21 17:58 Urine Test NEGATIVE (NEGATIVE) 04/15/21 17:58 Vancomycin Trough 14.6 mcg/mL (10.0-20.0) 04/19/21 21:54 Urine Opiates Screen POSITIVE (Not Detect) H 04/15/21 17:58 Urine Fentanyl Screen POSITIVE (Not Detect) H 04/15/21 17:58 Ur Barbiturates Screen Not Detected (Not Detect) 04/15/21 17:58 Ur Phencyclidine Scrn Not Detected (Not Detect) 04/15/21 17:58 Ur Amphetamines Screen Not Detected (Not Detect) 04/15/21 17:58 U Benzodiazepines Scrn Not Detected (Not Detect) 04/15/21 17:58 Urine Cocaine Screen POSITIVE (Not Detect) H 04/15/21 17:58 U Marijuana (THC) Screen Not Detected (Not Detect) 04/15/21 17:58 Ethyl Alcohol < 10 mg/dL 04/15/21 16:12 Acetone, Qual Large (Negative) H 04/15/21 16:12 COVID-19 (BRENDA) Negative (Negative) 04/15/21 16:03 COVID-19 Clin Com See Note 04/15/21 16:03 Impressions Chest X-Ray 04/16/21 16:15 IMPRESSION: Endotracheal tube with tip approximately 2 cm above the miguel ángel. Nasogastric tube seen traversing to the stomach. No significant acute parenchymal disease. Hip X-Ray 04/20/21 12:22 IMPRESSION: Normal right hip. Lumbar Spine X-Ray 04/20/21 12:22 IMPRESSION: Limited exam. No fracture seen. Preliminary micro results at discharge 04/18/21 10:41 Blood Culture - Preliminary Blood - Venous Staphylococcus aureus 04/18/21 10:55 Blood Culture - Preliminary Blood - Venous Staphylococcus aureus Discharge Plan Discharge Patient Disposition: Left Against Medical Advice Discharge Diagnosis: Staphylococcus aureus bacteremia incompletely treated because you left the hospital against medical advice, type 1 diabetes mellitus with DKA, cocaine abuse, opioid abuse Referrals: Alix Padilla MD [Primary Care Provider] - 1 Week Xiomara Louise CNP [Nurse Practitioner] - 1 Week Discharge Medications: Continued Lantus U-100 Insulin 100 unit/mL Solution 30 unit subcut DAILY 30 Days Qty: 10 RF: 0 Discharge Orders: Discharge Order (Routine); Ordered 04/20/21 Ordered By: Nakita Mendez Diet: advance to usual diet Activity on Discharge: no drug us Care Plan Goals: sobriety cure of infection Health Concerns: Staphylococcus aureus bacteremia incompletely treated because you left the hospital against medical advice, type 1 diabetes mellitus with DKA, cocaine abuse, opioid abuse Plan of Treatment: YOU ARE SIGNING OUT AGAINST THE MEDICAL ADVICE OF YOUR DOCTORS. YOU ARE TAKING THE RISK OF OR PERMANENT DISABILITY FROM AN INCOMPLETELY TREATED INVASIVE BLOODSTREAM INFECTION. RETURN TO THE HOSPITAL SOON POSSIBLE TO CONTINUE DEFINITIVE TREATMENT OF YOUR LIFE-THREATNING BLOODSTREAM INFECTION. AVOID USING DRUGS. Assessment: THE PATIENT IS SIGNING OUT AGAINST MEDICAL ADVICE. FOUND TO BE COMPETENT TO MAKE HER OWN DECISIONS, THOUGH THE DECISION SHE IS MAKING IS IN VERY POOR JUDGEMENT. Patient Instructions: Cocaine Abuse (DC), Against Medical Advice (DC), Bacteremia (DC), Narcotic Use Disorder (DC) Discharge Date/Time: 04/20/21 14:07
== END 2021-04-20 14:07 | disposition left against medical advice (07) | DRG 420 ==
LOC: HO.ED 16:33 → HO.EDOVER 17:26 → HO.ICU 18:04 → HO.S3 04-19 21:34
PROVIDERS: Internal Medicine; Physician Assistant; Registered Nurse Community Health; Admitting Provider Internal Medicine Pulmonary Disease; Emergency Provider Emergency Medicine; PCP Family Medicine; Visit Provider Family Medicine
DX: E10.10 Type 1 diabetes mellitus with ketoacidosis without coma (principal); G92.8 Other toxic encephalopathy; N17.9 Acute kidney failure, unspecified; R78.81 Bacteremia; F43.10 Post-traumatic stress disorder, unspecified; F32.A Depression, unspecified; F11.23 Opioid dependence with withdrawal; E87.8 Other disorders of electrolyte and fluid balance, not elsewhere classified; F14.23 Cocaine dependence with withdrawal; F17.210 Nicotine dependence, cigarettes, uncomplicated; Z71.6 Tobacco abuse counseling; Z20.822 Contact with and (suspected) exposure to COVID-19; B95.61 Methicillin susceptible Staphylococcus aureus infection as the cause of diseases classified elsewhere; Z79.4 Long term (current) use of insulin; Z91.14 Patient's other noncompliance with medication regimen
CPT/HCPCS: 36415; 71045; 72020; 73501; 80048; 80053; 80076; 80202; 80307; 81001; 81025; 82009; 82040; 82077; 82803; 82947; 83605; 83690; 83735; 84100; 85007; 85025; 85027; 87040; 87077; 87147; 87186; 87205; 87635; 93005; 93306; 94002; 94003; 94799; 96361; 96365; 96366; 96367; 96368; 96372; 96375; 99285; 99291; J0690; J2060; J2250; J2405; J2543; J3010; J3370; J3475; P9047

== ENCOUNTER 2021-05-06 04:04 | Inpatient (IN) | payer MEDICAID, SELFPAY ==
[2021-05-06] VITALS (7 sets, daily range): BP systolic 84–130; BP diastolic 44–75; PULSE 68–106; RESP 12–20; TEMP 36.3–38.9; O2SAT 97–100; BMI 16.9
--- NOTE | ~2021-05-06 | XR_ITS ---
EXAMINATION: XR HIP, RIGHT CLINICAL INFORMATION: Fall COMPARISON: 04/20/2021 TECHNIQUE: Two views of the right hip. Frontal view of the pelvis. FINDINGS: No fracture or dislocation. The hips are well aligned. Joint spaces are maintained. The pelvic rim is intact. Sacroiliac joints and pubic symphysis are intact. IUD in place. Normal bowel gas pattern. XR/XR hip RT w PEL1V IMPRESSION: No fracture or malalignment.
--- NOTE | ~2021-05-06 | XR_ITS ---
EXAMINATION: XR LUMBOSACRAL SPINE CLINICAL INFORMATION: Back pain COMPARISON: April 20, 2021 TECHNIQUE: Three views of the lumbosacral spine. FINDINGS: There are 5 nonrib bearing lumbar vertebra. There is mild scoliosis convex left which may be positional in nature. No acute fracture, spinal listhesis, spondylolysis is appreciated. There is some mild narrowing of the T12-L1 disc space with mild irregularity of the superior endplate of L1 without any significant loss of height. Pedicles appear intact. XR/XR lumbar spine 2-3V IMPRESSION: Mild scoliosis without evidence of acute fracture, spondylolisthesis, or spondylolysis. Mild degenerative change at the T12-L1 level.
--- NOTE | ~2021-05-06 | CT_ITS ---
EXAMINATION: CT LUMBAR SPINE CLINICAL INFORMATION: Bacteremia. IV drug abuse. Rule out spinal epidural abscess. COMPARISON: 09/11/2020 TECHNIQUE: Multidetector volumetric imaging of the lumbar spine performed after demonstration of 100 mL of Omnipaque 350 IV contrast. Coronal and sagittal reformatted images are obtained and reviewed. This CT examination was performed using dose optimization techniques as appropriate, variously including the following: *Automated exposure control *Adjustment of mA and/or kV according to patient size (this includes techniques or standardized protocols for targeted exams where dose is matched to indication/reason for exam; i.e. extremities or head) *Use of iterative reconstruction technique DLP: 375 mGy-cm FINDINGS: There is a multiloculated fluid collection with internal gas involving the right iliopsoas, mostly involving the iliacus . There is posterior extension of this collection into the right gluteal musculature. There is also extension into the right sacral foramina. This extends into the right paraspinal musculature. The collection measures approximately 15.8 x 6.5 cm in transaxial dimension by 13 cm CC. There is also extension of fluid which appears to be in the spinal canal, concerning for epidural abscess. The complete extent of this is difficult to determine on CT, though likely involves the L4-L5 levels. No fracture or subluxation. Vertebral body height and alignment maintained. Disc spaces are maintained. Schmorl's nodes are seen at the lower thoracic spine. Abnormal appearance of the right iliac bone and right sacroiliac joint associated with the collection. 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 The visualized kidneys are unremarkable. The vasculature is unremarkable. IUD in the uterus. Normally distended bladder. No bowel obstruction. CT/CT lumbar spine w con IMPRESSION: There is a large multiloculated fluid collection with internal gas consistent with an abscess involving the right iliopsoas musculature with extension posteriorly into the gluteal musculature and paraspinal musculature. There also appears to be extension into the spinal canal, concerning for associated epidural abscess at the lower lumbar spine and sacrum. Visualization is limited on CT and MRI would better evaluate. Abnormal appearance of the right sacrum and iliac bone suggestive of septic arthritis along the sacroiliac joint with associated osteomyelitis. Possible associated iliac fracture.
--- NOTE | ~2021-05-06 | CT_ITS ---
EXAMINATION: CT CERVICAL SPINE WITH CONTRAST CLINICAL INFORMATION: IV drug abuse. Bacteremia. Rule out spinal epidural abscess. COMPARISON: None TECHNIQUE: Multidetector volumetric imaging of the cervical spine performed after administration of 100 mL of Omnipaque 350 IV contrast. Coronal and sagittal reformatted images are obtained and reviewed. This CT examination was performed using dose optimization techniques as appropriate, variously including the following: *Automated exposure control *Adjustment of mA and/or kV according to patient size (this includes techniques or standardized protocols for targeted exams where dose is matched to indication/reason for exam; i.e. extremities or head) *Use of iterative reconstruction technique DLP: 283 mGy-cm FINDINGS: There is no abnormal fluid collection seen within the cervical spinal canal. No soft tissue abnormality. The thyroid gland is unremarkable. The visualized lung apices are clear. Normal enhancement of the vasculature. No fracture or subluxation. Vertebral body height and alignment maintained with straightening of the normal cervical lordosis. Disc spaces are maintained. The posterior elements are well aligned. The atlantoaxial and atlantooccipital articulations are intact. CT/CT cervical spine w con IMPRESSION: Unremarkable appearance of the cervical spine. No fluid collection or evidence of epidural abscess at this level. Fleischner guidelines were followed.
--- NOTE | ~2021-05-06 | XR_ITS ---
EXAMINATION: XR CHEST CLINICAL INFORMATION: Cough COMPARISON: Previous chest x-ray March 2021 TECHNIQUE: Frontal view of the chest was obtained. FINDINGS: No significant abnormality is noted involving the heart, lungs, mediastinum, bony thorax or soft tissues. XR/XR chest 1V IMPRESSION: Unremarkable examination.
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
[2021-05-06 08:02] LABS: Mean Corpuscular HGB Conc 31.8 g/dl (31.0-35.0); Mean Corpuscular Hemoglobin 24.6 pg (27.0-33.0); Mean Corpuscular Volume 77.5 fL (80.0-98.0); Mean Platelet Volume 10.6 fL (9.4-12.3); Platelet Count 432 X10*3/uL (160-400); Red Blood Count 2.84 X10*6/uL (4.20-5.50); Red Cell Distribution Width 15.6 % (11.0-16.0); White Blood Count 18.9 X10*3/uL (4.8-10.8)
[2021-05-06] MEDS: Acetaminophen 325 MG TABLET 650 MG PO (08:14)
[2021-05-06 08:18] LABS: Alanine Aminotransferase 101 U/L (0-31); Alkaline Phosphatase 208 U/L (39-117); Anion Gap 16 (12-20); Aspartate Amino Transferase 332 U/L (5-31); Bilirubin Total 0.8 mg/dL (0.0-1.0); Blood Urea Nitrogen 4 mg/dL (9-16); C Reactive Protein 17.85 mg/dL (< or = 0.50); Calcium 8.7 mg/dL (8.4-10.2); Carbon Dioxide 29 mmol/L (22-29); Chloride 90 mmol/L (96-108); Creatinine Clr Calc Pharmacy 99.6; Estimated Glomerular Filt Rate > 60; Glucose Random 206 mg/dL (60-115); Potassium 3.5 mmol/L (3.3-5.1); Sodium 131 mmol/L (135-145); Total Protein 6.6 g/dL (6.5-8.0)
[2021-05-06 08:30] LABS: Band Neutrophils Percent 8 % (3-5); Lymphocytes Absolute Manual 2.3 X10*3/uL (1.2-4.9); Lymphocytes Percent Manual 12 % (20-40); Monocytes Absolute Manual 1.3 X10*3/uL (0.1-1.2); Monocytes Percent Manual 7 % (2-11); Neutrophils Absolute Manual 15.3 X10*3/uL (2.0-8.3); Neutrophils Percent Manual 73 % (45-73)
[2021-05-06 08:32] LABS: RBC Morphology NOTED
[2021-05-06 08:33] LABS: Hypochromasia 2+ (15-30) /OIF; Microcytosis 1+ (5-14) /OIF
--- NOTE | 2021-05-06 08:33 | PC.NURSE ---
Unable to draw patients blood. RN aware.
[2021-05-06 08:34] LABS: Ovalocytes 1+ (5-14) /OIF; Toxic Granulation PRESENT
[2021-05-06 08:35] LABS: Large Platelet PRESENT; Platelet Estimate SLIGHTLY INCREASED (NORMAL); Platelet Morphology Comment NOTED; Polychromasia 1+ (0-2) /OIF
[2021-05-06 08:53] LABS: Erythrocyte Sedimentation Rate 114 MM/HR (0-20)
[2021-05-06 09:42] LABS: COVID-19 Test Positive (Negative); IDNOW Serial# 08D9AD1C
[2021-05-06 09:44] LABS: Lactic Acid 1.5 mmol/L (0.5-2.0)
--- NOTE | 2021-05-06 10:00 | PC.NURSE ---
pt keeps moving in bed, the ultra sound guided iv got pulled out pt is extremely hard stick, finally got the second set of blood cultures to hang the antibiotics
[2021-05-06] MEDS: cefEPime HCl 2 GM in 0.9 % Sodium Chloride 50 ML IV (10:17)
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
[2021-05-06] MEDS: Ketorolac Tromethamine 30 MG/ML VIAL 15 MG IVPUSH (10:54)
[2021-05-06] MEDS: vancomycin HCL 1,000 MG in 0.9 % Sodium Chloride 250 ML 270 MG IV ×2 (10:54→23:50)
[2021-05-06] MEDS: Morphine Sulfate 4 MG/ML CARTRIDGE IVPUSH ×3 (10:54→22:01)
--- NOTE | 2021-05-06 11:22 | PC.NURSE ---
pt of to mri
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
--- NOTE | 2021-05-06 11:27 | PHA.PROG ---
Admission Date/Time: May 06, 2021 10:46 Indication: Hx MRSA bactermia, risk of endocarditis, risk of epideral abcess Weight in k.627 kg Adjusted body weight in K.3 kg [place] body weight in K kg Obesity Dosing Indication % IBW: N/A Serum Creatinine - Last 168 Hours 05/06/21 07:50 Creatinine 0.66 Estimated CrCl and GFR - Last 168 Hours 05/06/21 07:50 Estim Creat Clear Calc 99.6 Estimated GFR > 60 Vancomycin Loading Dose: 1000 mg (21 mg/kg) Current Vancomycin Dosing Regimen: 1000 mg Q12H Date and Time for next Vancomycin Level to be drawn: 05/07 @ 2100 Pharmacist Comments on Vancomycin Plan: Last admission patient started on vancomycin 750 mg Q12H but finished with vancomycin 1000 mg Q8H on 04/19/2021 Will start patient on Vancomycin 1000 mg Q12H with an expected AUC of 549 and trough of 15.7. Trough will be drawn 05/07 @ 2100 prior to the 4th dose. Pharmacy will adjust in trough is lower or high than expected. Pharmacy will monitor renal function daily. Roseann Paulino PharmD Vancomycin dosing will take advantage of [employer] as a clinical decision support tool that uses Bayesian modeling to calculate individual patient's pharmacokinetic parameters and forecast the patient's drug concentration time course with the target goal AUC 24 range of 400 - 600 mg/L/hr.
[2021-05-06 11:38] LABS: Iron 7 mcg/dL (30-160); Lactate Dehydrogenase 312 U/L (122-220); Magnesium 1.8 mg/dL (1.6-2.6); Percent Iron Saturation 5 % (15-50); Total Iron Binding Capacity 145 mcg/dL (228-428); Unsaturated Iron Binding 138 ug/dL
[2021-05-06 11:56] LABS: Ferritin 437 ng/mL (10-122)
[2021-05-06 12:05] LABS: Glucose, Whole Blood 182 mg/dL (60-115)
[2021-05-06 12:06] LABS: Procalcitonin 0.49 ng/mL
[2021-05-06] MEDS: 0.9 % Sodium Chloride 1,000 ML 125 ML IVCONT ×2 (12:13→23:30)
[2021-05-06 13:13] LABS: Glucose, Whole Blood 176 mg/dL (60-115)
[2021-05-06] MEDS: HYDROmorphone HCl 0.5 MG/0.5 ML SYRINGE IVPUSH (13:17)
[2021-05-06] MEDS: Insulin Lispro 100 UNIT/ML 3 ML VIAL SUBCUT ×2 (13:19→18:02)
[2021-05-06 13:37] LABS: Estimated Average Glucose 289 mg/dL; Hemoglobin A1c % 11.7 %
--- NOTE | 2021-05-06 13:39 | PC.NURSE ---
PT'S THIRD LINE CAME OUT, DR NORRIS INSERTED TWO MORE US GUIDED IV'S ONE ON THE EACH UPPER ARM. CALLED MRI TO SEE IF THEY HAVE TIME TO ATTEMPT THE MRI AGAIN, PT STATES SHE WILL TRY HER BEST TO STAY STILL, UNCOMFORTABLY MRI IS UNABLE UNTIL 1630
[2021-05-06] MEDS: 0.9 % Sodium Chloride 1,428.81 ML 1428.81 ML IV (14:44)
[2021-05-06] MEDS: ceFAZolin Sodium/Dextrose,Iso 2 GM/50 ML PIGGYBACK IV ×2 (16:23→23:31)
[2021-05-06] MEDS: 0.9 % Sodium Chloride Flush 3 ML SYRINGE IVFLUSH (16:29)
--- NOTE | 2021-05-06 16:46 | PC.NURSE ---
pt pre medicated for the mri, and pt taken down
--- NOTE | 2021-05-06 17:02 | PC.NURSE ---
mri called that the pt is unable to tolerate laying flat, dr rivera aware
[2021-05-06 17:49] LABS: Glucose, Whole Blood 294 mg/dL (60-115)
--- NOTE | 2021-05-06 19:27 | PC.NURSE ---
Assumed care of pt at 1900. Pt sleeping, even and non-labored resps noted, IV fluids infusing. Pending CT scan
--- NOTE | 2021-05-06 20:26 | PC.NURSE ---
Report called to ED overflow RN. Pt transported via [employer] EDT, send in stable condition w/ all belongings
[2021-05-06 21:06] LABS: Glucose, Whole Blood 212 mg/dL (60-115)
[2021-05-06] MEDS: Insulin Glargine,Hum.rec.anlog 100 UNIT/ML 10 ML VIAL 20 UNIT SUBCUT (22:01)
[2021-05-06] MEDS: iohexoL 350 MG/ML 100 ML INFUS..BTL IV (23:37)
[2021-05-07] MEDS: Morphine Sulfate 4 MG/ML CARTRIDGE IVPUSH ×2 (00:55→04:24)
[2021-05-07] MEDS: diphenhydrAMINE HCL 25 MG TABLET PO (01:15)
--- NOTE | 2021-05-07 01:54 | P.EN_ITS ---
Event Note Date of Service: 05/07/21 Event Note: back pain: Patient admitted for IVDA/ bacteremia. Complaining of neck pain and back pain. Day team obtain CT cervical spine and CT lumbar spine. CT cervical spine showed no acute findings CT lumbar spine showed abscess in the iliopsoas musculature as well as concerns for epidural abscess upon questioning patient reports she has been having stool incontinence for the past 3 weeks. Upon examining patient has equal sensations bilaterally in the lower extremities and equal strength bilaterally in the lower extremities. Rectal tone is intact. I spoke to the Neurosurgery team Indu JEAN (covering attending Dr Ruff) at [facility] in about the CT lumbar spine findings and exam findings; recommended to obtain MRI for further assessment; neuro checks until then. and to touch base again once MRI results are back. I spoke to the nursing newspaper distributor supervisor/ radiology team for possible MRI tonight.
[2021-05-07] MEDS: HYDROmorphone HCl 1 MG/ML SYRINGE IVPUSH (03:02)
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
[2021-05-07 04:00] VITALS: TEMP 39.3
--- NOTE | 2021-05-07 04:26 | PC.NURSE ---
This RN assumed care when patient was transferred from the ED to [facility]. Patient noted to be pale and moaning incessantly in pain. Patient was given IV antibiotics as well as fluids per orders. Patient required verbal support to go to CAT scan, which revealed lumbar abcess. Patient continues to be in pain despite multiple doses of pain medication given, hospitalist aware and ordered Benadryl 25mg for sleep, which was ineffective. This RN performed neuro assessment on patient, sensation, pulses, and strength are intact, rectal tone present. Patient's temperature is 102.2, tachy at 117. Hospitalist aware of patient condition, came down to personally assess patient. Hospitalist and Nursing Qa Developer consulted, agreed to transfer patient to [facility] for MRI and probable surgery. Report given to RN at [facility], patient aware of transfer status at this time.
[2021-05-07] MEDS: Ibuprofen 400 MG TABLET PO (05:30)
--- NOTE | 2021-05-07 07:33 | MHC.CM.PN ---
Patient discharged to [facility] before case management could assess patient.
== END 2021-05-07 16:41 | disposition short-term general hospital (02) | DRG 720 ==
LOC: HO.ED 10:20 → HO.EDOVER 11:15 → HO.S3 13:37 → HO.EDOVER 14:27
PROVIDERS: Admitting Provider Family Medicine; Emergency Provider Emergency Medicine; Visit Provider Hospitalist
DX: A41.9 Sepsis, unspecified organism (principal); U07.1 COVID-19; G06.2 Extradural and subdural abscess, unspecified; M60.09 Infective myositis, multiple sites; M00.9 Pyogenic arthritis, unspecified; E10.9 Type 1 diabetes mellitus without complications; D64.9 Anemia, unspecified; F11.10 Opioid abuse, uncomplicated; F14.10 Cocaine abuse, uncomplicated; F15.10 Other stimulant abuse, uncomplicated; F17.210 Nicotine dependence, cigarettes, uncomplicated; Z71.6 Tobacco abuse counseling; Z86.14 Personal history of Methicillin resistant Staphylococcus aureus infection; Z79.4 Long term (current) use of insulin; Z79.899 Other long term (current) drug therapy
CPT/HCPCS: 36415; 71045; 72100; 72126; 72132; 73502; 80053; 82550; 82728; 82947; 83036; 83540; 83605; 83615; 83735; 84145; 85007; 85025; 85027; 85652; 86140; 87040; 87147; 87186; 87205; 87635; 96365; 96375; 99284; 99285; J0690; J0692; J1170; J1885; J2270; J3370; Q0163; Q9967

== ENCOUNTER 2021-06-22 03:23 | Emergency (ER) | payer MEDICAID, SELFPAY ==
--- NOTE | 2021-06-22 | ECG_ITS ---
Test Reason : UNRESPONSIVE Blood Pressure : / mmHG Vent. Rate : 148 BPM Atrial Rate : 148 BPM P-R Int : 134 ms QRS Dur : 080 ms QT Int : 262 ms P-R-T Axes : 083 076 041 degrees QTc Int : 411 ms Poor data quality, interpretation may be adversely affected Sinus tachycardia Otherwise normal ECG When compared with ECG of 17-APR-2021 20:20, Vent. rate has increased BY 64 BPM Poor data quality in current ECG precludes serial comparison Referred By: Belkis Chiang Electronically Signed By:LISSETTE NOLASCO MD
--- NOTE | ~2021-06-22 | XR_ITS ---
EXAMINATION: XR CHEST CLINICAL INFORMATION: Line placement COMPARISON: 05/06/2021 TECHNIQUE: Frontal view of the chest was obtained. FINDINGS: Right IJ central line tip lies in the region of the proximal right atrium. The lungs are hypoinflated. There is an approximately 2 cm nodular density overlying the mid right lung, new from prior, with suggestion of central cavitation. There is suggestion of mild patchy opacities towards the lung bases. No evidence of pneumothorax or significant pleural effusion. The cardiomediastinal contour is unremarkable. No acute osseous findings are seen. XR/XR chest 1V IMPRESSION: 1. Right IJ central line tip in the region of the proximal right atrium. 2. Approximately 2 cm nodular density in the mid right lung with suggestion of central cavitation, new from prior and favoring an infectious etiology, including septic embolus or lung abscess given the reported history of IV drug abuse. This may be further assessed with CT. 3. Suggestion of mild patchy bibasilar opacities.
[2021-06-22 03:26] VITALS: BP 76/34; BP 78/40; PULSE 151; PULSE 158; RESP 30; TEMP 38.3; O2SAT 92; BMI 17.7
--- NOTE | 2021-06-22 03:44 | ED_ITS ---
HPI - General Adult General Chief complaint: Altered Mental Status Stated complaint: unresponsive Time Seen by Provider: 06/22/21 03:43 Source: patient and EMS Mode of arrival: EMS History of Present Illness HPI narrative: 25-year-old female brought in by EMS for unresponsiveness and was noted to have used heroin just prior to their arrival. En route EMS states that patient had a tonic clonic seizure and they called ahead to the hospital as a code sepsis alert. However, they also stated that the point of care read as high . Related Data Home Medications Medication Instructions Recorded Confirmed insulin glargine 100 unit/mL 35 unit SUBCUT BEDTIME 05/06/21 05/06/21 subcutaneous solution (Lantus U-100 Insulin) Previous Rx's Medication Instructions Recorded cefazolin 2 gram/50 mL in dextrose 2 g (50 mL) IV Q8H #10 ea 05/07/21 (iso-osmotic) intravenous piggyback dextrose 40 % oral gel (Glutose-15) 15 g PO Q15M PRN #10 g 05/07/21 dextrose 50 % in water (D50W) 25 g IVPUSH Q15M PRN #10 ml 05/07/21 insulin glargine 100 unit/mL 20 unit (0.2 mL) SUBCUT BEDTIME 05/07/21 subcutaneous solution (Lantus #10 ml U-100 Insulin) insulin lispro 100 unit/mL See Protocol SUBCUT QIDACHS #10 ml 05/07/21 subcutaneous solution (Humalog U-100 Insulin) nicotine (polacrilex) 2 mg gum 2 mg BUCCAL Q1H PRN #10 ea 05/07/21 ondansetron HCl (PF) 4 mg/2 mL 4 mg (2 mL) IVPUSH Q8H PRN #10 ml 05/07/21 injection solution vancomycin HCl 100 mg/mL in 1 g IV Q12H #200 ml 05/07/21 sterile water intravenous solution Allergies Allergy/AdvReac Type Severity Reaction Status Date / Time No Known Allergies Allergy Verified 05/06/21 05:11 Review of Systems Review of Systems: Yes Unobtainable due to mental condition PMFSH Past Medical History Source: nursing notes reviewed Medical History Anxiety Bacteremia Bacteremia due to methicillin susceptible Staphylococcus aureus (MSSA) Cocaine abuse Diabetes mellitus type 1 Endocarditis Heroin abuse Leukocytosis Polysubstance abuse Staphylococcus aureus bacteremia Substance abuse Social History Social History Household Members: Other Household Members Other:: currently living with her boyfriend Housing: Apartment Do you presently have visiting nurse or other home services: No Patient Tobacco Use Status: Current everyday Tobacco user Tobacco use type: Cigarette Cigarette Packs Per Day: 1 Cigarettes Per Day: 20.0 Years Smoked: ''since I was 16'' e-Cigarette/Vaping Use: Former Use Second Hand Smoke Exposure: Yes Substance Use Type: Heroin Advance Directives: No Advance Directives Information Provided: No service: No Current occupational status: unemployed Sexual orientation: Straight/Heterosexual Physical Exam ED Vital Signs: Vital Signs - 24 hr 06/22/21 03:26 06/22/21 04:23 06/22/21 05:20 Temperature 100.9 F H 98.8 F 97.2 F Pulse Rate 151 H 129 H 124 H Respiratory Rate 30 H 60 H 60 H Blood Pressure 76/34 L 93/35 L 108/40 L Pulse Oximetry 95 97 06/22/21 05:28 06/22/21 05:50 06/22/21 05:58 Temperature 97.2 F 97.2 F 97.2 F Pulse Rate 121 H 121 H 120 H Respiratory Rate 61 H 70 H 69 H Blood Pressure 104/52 L 103/67 95/68 Pulse Oximetry 94 35 L 98 BMI result Body Mass Index 18.0 VITAL SIGNS: Reviewed. GENERAL: Cachectic, chronically ill, in severe distress. HEAD: Normocephalic/atraumatic EYES: PERRLA, EOMI OROPHARYNX: no oral lesions noted, posterior pharynx clear, dry mucosa, cracked lips NECK: Supple, no adenopathy LUNGS: Normal breath sounds, tachypnea with smell of acetone. SpO2<95> on supplemental nasal cannula CARDIOVASCULAR: sinus tachycardia and rhythm without noted murmurs, no JVD or lower extremity edema. ABDOMEN: Soft, non-tender, non-distended with bowel sounds, there is a noted drain to the right lower quadrant with milky substance in the bulb suction. MUSCULOSKELETAL: No tenderness, deformities, or effusions noted on gross inspection. EXTREMITIES: No cyanosis, clubbing or edema; right upper extremity PICC line SKIN: Inspection of the skin reveals no rashes, poor collar, patient has multiple healing ulcers on the backs of her fingers. NEUROLOGIC: GCS-9, spontaneously moving all 4 extremities Course Course Course Narrative: On arrival: Dirty right IJ placed and on chest x-ray no pneumothorax and noted to be in right atrium, bolus IV fluid started through left lower extremity, since patient noted to be in DKA the decision not to intubate at this time was made. PICC line was pulled as potential source of infection. Records were requested from [facility]. Sepsis fluids were started. 0343: VBG with pH- 6.87 and 1 amp of bicarb was administered and ordered a 150 mEq bicarb drip and started at a rate of 125 cc 0355: 1g vancomycin and a dose of Zosyn given. Potassium noted to be 3.4 and 20 mEq potassium chloride was ordered, magnesium is within normal limits, 5 units of regular insulin provided IV. 0530: I discussed this case with the [facility] pharmacists who is requesting to the repeat lab work as well as a CT of the head, but is looking for a bed 0555: K-2.2, giving 2-20mEQ potassium chloride for a total of 40 mEq and switching from normal saline to lactated Ringer's. 0630: Giving additonal potassium chloride. 0700: BP noted to have MAP-80 at lowest Levophed setting and pressor was held. 0730: Nasal cannula decreased to 2L as patient noted to be 100% saturation. Reevaluation(s) Reevaluation #1: 1 minute tonic clonic seizure. 1 mg Ativan given as well as 1500 mg Keppra load. Patient was noted to be postictal. Time: 04:11 Reevaluation #2: I discussed the case with [facility] ICU attending, Dr Goode who accepts transfer. Time: 05:18 Reevaluation #3: I discussed this case with [facility] ICU attending, Dr Zamora who accepts transfer at this time. Time: 07:15 Procedures Central Line Placement Right IJ: Time Out Performed: No Patient Placed on Monitor/Pulse Ox: Yes MD Prep: gloves Central Line Prep: Chlorhexidine scrub Ultrasound Used for Placement: Yes Central Line Lumen Inserted: triple Post Procedure: sutured in place, good blood return, all ports aspirated, flushed, capped and sterile dressing applied Post Procedure X-Ray: no pneumothorax seen and other (Tip of catheter and right atrium) Patient Tolerated Procedure: well and no complications Additional Comments: this is a dirty IJ. Medical Decision Making Lab Data Result diagrams: 06/22/21 03:39 06/22/21 05:16 Labs: Lab Results 06/22/21 06/22/21 06/22/21 Range/Units 03:39 03:39 03:39 WBC 26.4 H (4.8-10.8) X10*3/uL RBC 3.33 L (4.20-5.50) X10*6/uL Hgb 9.2 L D (12.0-16.0) g/dl Hct 32.2 L D (37.0-47.0) % MCV 96.7 (80.0-98.0) fL MCH 27.6 (27.0-33.0) pg MCHC 28.6 L (31.0-35.0) g/dl RDW 17.6 H (11.0-16.0) % Plt Count 24 L D (160-400) X10*3/uL MPV TNP Immature Gran % (Auto) Cancelled Neut % (Auto) Cancelled Lymph % (Auto) Cancelled [place] % (Auto) Cancelled Eos % (Auto) Cancelled Baso % (Auto) Cancelled Lymph # (Auto) Cancelled [place] # (Auto) Cancelled Eos # (Auto) Cancelled Baso # (Auto) Cancelled Abs Immat Gran (auto) Cancelled Absolute Neuts (auto) Cancelled Absolute Nucleated RBC 0.000 (0.0-0.012) X10*3/uL Nucleated RBC % (auto) 0.0 (0.0-0.2) /100WBC Neutrophils % (Manual) 77 H (45-73) % Band Neutrophils % 18 H (3-5) % Lymphocytes % (Manual) 4 L (20-40) % Monocytes % (Manual) 1 L (2-11) % Abs Neuts (Manual) 25.1 H (2.0-8.3) X10*3/uL Lymphocytes # (Manual) 1.1 L (1.2-4.9) X10*3/uL Monocytes # (Manual) 0.3 (0.1-1.2) X10*3/uL Toxic Granulation PRESENT Toxic Vacuolation PRESENT Platelet Estimate DECREASED (NORMAL) Large Platelets PRESENT Giant Platelets PRESENT Plt Morphology Comment NOTED RBC Morphology NOTED Colby Cells 1+ (0-2) /OIF PT (9.9-13.0) SEC INR (0.9-1.1) VBG pH (7.32-7.43) VBG pCO2 mmHg VBG pO2 mmHg VBG HCO3 (22-26) mmol/L VBG O2 Saturation % VBG Base Excess mmol/L Sodium 128 L (135-145) mmol/L Potassium 3.4 (3.3-5.1) mmol/L Chloride 87 L (96-108) mmol/L Carbon Dioxide < 5 L* D (22-29) mmol/L Anion Gap TNP BUN 30 H D (9-16) mg/dL Creatinine 2.06 H (0.5-1.4) mg/dL Estim Creat Clear Calc 33.9 Estimated GFR 30 POC Glucose (60-115) mg/dL Random Glucose 881 H* D (60-115) mg/dL Lactic Acid 15.7 H* (0.5-2.0) mmol/L Calcium 9.1 (8.4-10.2) mg/dL Magnesium 2.7 H (1.6-2.6) mg/dL Total Bilirubin 0.8 (0.0-1.0) mg/dL AST 29 D (5-31) U/L ALT 10 (0-31) U/L Alkaline Phosphatase 216 H (39-117) U/L Total Protein 5.5 L (6.5-8.0) g/dL Albumin 2.4 L (3.5-5.0) g/dL Urine Color Urine Appearance Urine pH (5.0-8.0) Ur Specific [place] (1.005-1.025) Urine Protein (NEG-TRACE) MG/DL Urine Glucose (UA) (NEG) MG/DL Urine Ketones (NEG) MG/DL Urine Blood (NEG) Urine Nitrite (NEG) Ur Leukocyte Esterase (NEG) Urine RBC (0) /HPF Urine WBC (0-4) /HPF Ur Squamous Epith Cells /LPF Urine Bacteria /LPF Urine Mucus /LPF Urine Test (NEGATIVE) Urine Opiates Screen (Not Detect) Urine Fentanyl Screen (Not Detect) Ur Barbiturates Screen (Not Detect) Ur Phencyclidine Scrn (Not Detect) Ur Amphetamines Screen (Not Detect) U Benzodiazepines Scrn (Not Detect) Urine Cocaine Screen (Not Detect) U Marijuana (THC) Screen (Not Detect) COVID-19 (BRENDA) (Negative) COVID-19 Clin Com 06/22/21 06/22/21 06/22/21 Range/Units 03:41 03:41 03:43 WBC (4.8-10.8) X10*3/uL RBC (4.20-5.50) X10*6/uL Hgb (12.0-16.0) g/dl Hct (37.0-47.0) % MCV (80.0-98.0) fL MCH (27.0-33.0) pg MCHC (31.0-35.0) g/dl RDW (11.0-16.0) % Plt Count (160-400) X10*3/uL MPV Immature Gran % (Auto) Neut % (Auto) Lymph % (Auto) [place] % (Auto) Eos % (Auto) Baso % (Auto) Lymph # (Auto) [place] # (Auto) Eos # (Auto) Baso # (Auto) Abs Immat Gran (auto) Absolute Neuts (auto) Absolute Nucleated RBC (0.0-0.012) X10*3/uL Nucleated RBC % (auto) (0.0-0.2) /100WBC Neutrophils % (Manual) (45-73) % Band Neutrophils % (3-5) % Lymphocytes % (Manual) (20-40) % Monocytes % (Manual) (2-11) % Abs Neuts (Manual) (2.0-8.3) X10*3/uL Lymphocytes # (Manual) (1.2-4.9) X10*3/uL Monocytes # (Manual) (0.1-1.2) X10*3/uL Toxic Granulation Toxic Vacuolation Platelet Estimate (NORMAL) Large Platelets Giant Platelets Plt Morphology Comment RBC Morphology Haider Cells /OIF PT 26.6 H (9.9-13.0) SEC INR 2.3 H (0.9-1.1) VBG pH 6.87 L* (7.32-7.43) VBG pCO2 19 mmHg VBG pO2 77 mmHg VBG HCO3 3 L (22-26) mmol/L VBG O2 Saturation 78.0 % VBG Base Excess -28.3 mmol/L Sodium (135-145) mmol/L Potassium (3.3-5.1) mmol/L Chloride (96-108) mmol/L Carbon Dioxide (22-29) mmol/L Anion Gap BUN (9-16) mg/dL Creatinine (0.5-1.4) mg/dL Estim Creat Clear Calc Estimated GFR POC Glucose (60-115) mg/dL Random Glucose (60-115) mg/dL Lactic Acid (0.5-2.0) mmol/L Calcium (8.4-10.2) mg/dL Magnesium (1.6-2.6) mg/dL Total Bilirubin (0.0-1.0) mg/dL AST (5-31) U/L ALT (0-31) U/L Alkaline Phosphatase (39-117) U/L Total Protein (6.5-8.0) g/dL Albumin (3.5-5.0) g/dL Urine Color Urine Appearance Urine pH (5.0-8.0) Ur Specific [place] (1.005-1.025) Urine Protein (NEG-TRACE) MG/DL Urine Glucose (UA) (NEG) MG/DL Urine Ketones (NEG) MG/DL Urine Blood (NEG) Urine Nitrite (NEG) Ur Leukocyte Esterase (NEG) Urine RBC (0) /HPF Urine WBC (0-4) /HPF Ur Squamous Epith Cells /LPF Urine Bacteria /LPF Urine Mucus /LPF Urine Test (NEGATIVE) Urine Opiates Screen (Not Detect) Urine Fentanyl Screen (Not Detect) Ur Barbiturates Screen (Not Detect) Ur Phencyclidine Scrn (Not Detect) Ur Amphetamines Screen (Not Detect) U Benzodiazepines Scrn (Not Detect) Urine Cocaine Screen (Not Detect) U Marijuana (THC) Screen (Not Detect) COVID-19 (BRENDA) Negative (Negative) COVID-19 Clin Com See Note 06/22/21 06/22/21 06/22/21 Range/Units 04:21 04:21 04:21 WBC (4.8-10.8) X10*3/uL RBC (4.20-5.50) X10*6/uL Hgb (12.0-16.0) g/dl Hct (37.0-47.0) % MCV (80.0-98.0) fL MCH (27.0-33.0) pg MCHC (31.0-35.0) g/dl RDW (11.0-16.0) % Plt Count (160-400) X10*3/uL MPV Immature Gran % (Auto) Neut % (Auto) Lymph % (Auto) [place] % (Auto) Eos % (Auto) Baso % (Auto) Lymph # (Auto) [place] # (Auto) Eos # (Auto) Baso # (Auto) Abs Immat Gran (auto) Absolute Neuts (auto) Absolute Nucleated RBC (0.0-0.012) X10*3/uL Nucleated RBC % (auto) (0.0-0.2) /100WBC Neutrophils % (Manual) (45-73) % Band Neutrophils % (3-5) % Lymphocytes % (Manual) (20-40) % Monocytes % (Manual) (2-11) % Abs Neuts (Manual) (2.0-8.3) X10*3/uL Lymphocytes # (Manual) (1.2-4.9) X10*3/uL Monocytes # (Manual) (0.1-1.2) X10*3/uL Toxic Granulation Toxic Vacuolation Platelet Estimate (NORMAL) Large Platelets Giant Platelets Plt Morphology Comment RBC Morphology Colby Cells /OIF PT (9.9-13.0) SEC INR (0.9-1.1) VBG pH (7.32-7.43) VBG pCO2 mmHg VBG pO2 mmHg VBG HCO3 (22-26) mmol/L VBG O2 Saturation % VBG Base Excess mmol/L Sodium (135-145) mmol/L Potassium (3.3-5.1) mmol/L Chloride (96-108) mmol/L Carbon Dioxide (22-29) mmol/L Anion Gap BUN (9-16) mg/dL Creatinine (0.5-1.4) mg/dL Estim Creat Clear Calc Estimated GFR POC Glucose (60-115) mg/dL Random Glucose (60-115) mg/dL Lactic Acid (0.5-2.0) mmol/L Calcium (8.4-10.2) mg/dL Magnesium (1.6-2.6) mg/dL Total Bilirubin (0.0-1.0) mg/dL AST (5-31) U/L ALT (0-31) U/L Alkaline Phosphatase (39-117) U/L Total Protein (6.5-8.0) g/dL Albumin (3.5-5.0) g/dL Urine Color YELLOW Urine Appearance CLEAR Urine pH 6.0 (5.0-8.0) Ur Specific [place] 1.010 (1.005-1.025) Urine Protein 1+ H (NEG-TRACE) MG/DL Urine Glucose (UA) 500 H (NEG) MG/DL Urine Ketones >=80 (NEG) MG/DL Urine Blood 3+ H (NEG) Urine Nitrite NEG (NEG) Ur Leukocyte Esterase NEG (NEG) Urine RBC 1-4 (0) /HPF Urine WBC 10-14 H (0-4) /HPF Ur Squamous Epith Cells 1+ /LPF Urine Bacteria TRACE /LPF Urine Mucus TRACE /LPF Urine Test NEGATIVE (NEGATIVE) Urine Opiates Screen POSITIVE H (Not Detect) Urine Fentanyl Screen POSITIVE H (Not Detect) Ur Barbiturates Screen Not Detected (Not Detect) Ur Phencyclidine Scrn Not Detected (Not Detect) Ur Amphetamines Screen Not Detected (Not Detect) U Benzodiazepines Scrn Not Detected (Not Detect) Urine Cocaine Screen Not Detected (Not Detect) U Marijuana (THC) Screen POSITIVE H (Not Detect) COVID-19 (BRENDA) (Negative) COVID-19 Clin Com 06/22/21 06/22/21 06/22/21 Range/Units 05:05 05:16 05:16 WBC (4.8-10.8) X10*3/uL RBC (4.20-5.50) X10*6/uL Hgb (12.0-16.0) g/dl Hct (37.0-47.0) % MCV (80.0-98.0) fL MCH (27.0-33.0) pg MCHC (31.0-35.0) g/dl RDW (11.0-16.0) % Plt Count (160-400) X10*3/uL MPV Immature Gran % (Auto) Neut % (Auto) Lymph % (Auto) [place] % (Auto) Eos % (Auto) Baso % (Auto) Lymph # (Auto) [place] # (Auto) Eos # (Auto) Baso # (Auto) Abs Immat Gran (auto) Absolute Neuts (auto) Absolute Nucleated RBC (0.0-0.012) X10*3/uL Nucleated RBC % (auto) (0.0-0.2) /100WBC Neutrophils % (Manual) (45-73) % Band Neutrophils % (3-5) % Lymphocytes % (Manual) (20-40) % Monocytes % (Manual) (2-11) % Abs Neuts (Manual) (2.0-8.3) X10*3/uL Lymphocytes # (Manual) (1.2-4.9) X10*3/uL Monocytes # (Manual) (0.1-1.2) X10*3/uL Toxic Granulation Toxic Vacuolation Platelet Estimate (NORMAL) Large Platelets Giant Platelets Plt Morphology Comment RBC Morphology Haider Cells /OIF PT (9.9-13.0) SEC INR (0.9-1.1) VBG pH 7.14 L* (7.32-7.43) VBG pCO2 19 mmHg VBG pO2 92 mmHg VBG HCO3 7 L (22-26) mmol/L VBG O2 Saturation 94.0 % VBG Base Excess -19.9 mmol/L Sodium 133 L (135-145) mmol/L Potassium 2.2 L* D (3.3-5.1) mmol/L Chloride 99 (96-108) mmol/L Carbon Dioxide 8 L* D (22-29) mmol/L Anion Gap 28 H BUN 28 H (9-16) mg/dL Creatinine 1.69 H (0.5-1.4) mg/dL Estim Creat Clear Calc 41.4 Estimated GFR 37 POC Glucose > 600 H* (60-115) mg/dL Random Glucose 795 H* (60-115) mg/dL Lactic Acid (0.5-2.0) mmol/L Calcium 7.5 L D (8.4-10.2) mg/dL Magnesium (1.6-2.6) mg/dL Total Bilirubin 0.6 (0.0-1.0) mg/dL AST 24 (5-31) U/L ALT 7 (0-31) U/L Alkaline Phosphatase 176 H (39-117) U/L Total Protein 4.0 L D (6.5-8.0) g/dL Albumin 1.8 L D (3.5-5.0) g/dL Urine Color Urine Appearance Urine pH (5.0-8.0) Ur Specific [place] (1.005-1.025) Urine Protein (NEG-TRACE) MG/DL Urine Glucose (UA) (NEG) MG/DL Urine Ketones (NEG) MG/DL Urine Blood (NEG) Urine Nitrite (NEG) Ur Leukocyte Esterase (NEG) Urine RBC (0) /HPF Urine WBC (0-4) /HPF Ur Squamous Epith Cells /LPF Urine Bacteria /LPF Urine Mucus /LPF Urine Test (NEGATIVE) Urine Opiates Screen (Not Detect) Urine Fentanyl Screen (Not Detect) Ur Barbiturates Screen (Not Detect) Ur Phencyclidine Scrn (Not Detect) Ur Amphetamines Screen (Not Detect) U Benzodiazepines Scrn (Not Detect) Urine Cocaine Screen (Not Detect) U Marijuana (THC) Screen (Not Detect) COVID-19 (BRENDA) (Negative) COVID-19 Clin Com 06/22/21 Range/Units 08:45 WBC (4.8-10.8) X10*3/uL RBC (4.20-5.50) X10*6/uL Hgb (12.0-16.0) g/dl Hct (37.0-47.0) % MCV (80.0-98.0) fL MCH (27.0-33.0) pg MCHC (31.0-35.0) g/dl RDW (11.0-16.0) % Plt Count (160-400) X10*3/uL MPV Immature Gran % (Auto) Neut % (Auto) Lymph % (Auto) [place] % (Auto) Eos % (Auto) Baso % (Auto) Lymph # (Auto) [place] # (Auto) Eos # (Auto) Baso # (Auto) Abs Immat Gran (auto) Absolute Neuts (auto) Absolute Nucleated RBC (0.0-0.012) X10*3/uL Nucleated RBC % (auto) (0.0-0.2) /100WBC Neutrophils % (Manual) (45-73) % Band Neutrophils % (3-5) % Lymphocytes % (Manual) (20-40) % Monocytes % (Manual) (2-11) % Abs Neuts (Manual) (2.0-8.3) X10*3/uL Lymphocytes # (Manual) (1.2-4.9) X10*3/uL Monocytes # (Manual) (0.1-1.2) X10*3/uL Toxic Granulation Toxic Vacuolation Platelet Estimate (NORMAL) Large Platelets Giant Platelets Plt Morphology Comment RBC Morphology Col[place] Cells /OIF PT (9.9-13.0) SEC INR (0.9-1.1) VBG pH (7.32-7.43) VBG pCO2 mmHg VBG pO2 mmHg VBG HCO3 (22-26) mmol/L VBG O2 Saturation % VBG Base Excess mmol/L Sodium (135-145) mmol/L Potassium (3.3-5.1) mmol/L Chloride (96-108) mmol/L Carbon Dioxide (22-29) mmol/L Anion Gap BUN (9-16) mg/dL Creatinine (0.5-1.4) mg/dL Estim Creat Clear Calc Estimated GFR POC Glucose > 600 H* (60-115) mg/dL Random Glucose (60-115) mg/dL Lactic Acid (0.5-2.0) mmol/L Calcium (8.4-10.2) mg/dL Magnesium (1.6-2.6) mg/dL Total Bilirubin (0.0-1.0) mg/dL AST (5-31) U/L ALT (0-31) U/L Alkaline Phosphatase (39-117) U/L Total Protein (6.5-8.0) g/dL Albumin (3.5-5.0) g/dL Urine Color Urine Appearance Urine pH (5.0-8.0) Ur Specific [place] (1.005-1.025) Urine Protein (NEG-TRACE) MG/DL Urine Glucose (UA) (NEG) MG/DL Urine Ketones (NEG) MG/DL Urine Blood (NEG) Urine Nitrite (NEG) Ur Leukocyte Esterase (NEG) Urine RBC (0) /HPF Urine WBC (0-4) /HPF Ur Squamous Epith Cells /LPF Urine Bacteria /LPF Urine Mucus /LPF Urine Test (NEGATIVE) Urine Opiates Screen (Not Detect) Urine Fentanyl Screen (Not Detect) Ur Barbiturates Screen (Not Detect) Ur Phencyclidine Scrn (Not Detect) Ur Amphetamines Screen (Not Detect) U Benzodiazepines Scrn (Not Detect) Urine Cocaine Screen (Not Detect) U Marijuana (THC) Screen (Not Detect) COVID-19 (BRENDA) (Negative) COVID-19 Clin Com ECG Data Attestation: I personally reviewed and interpreted this ECG as follows: Prior ECG tracings: available for review Interpretation: poor quality EKG, sinus tachycardia, HR- 148, no STEMI, peaked T-waves, UT /QRS /QTC are within normal limits. Critical Care Time Critical Care Time Critical Care Time: Yes Total Critical Care Time: 60 Attestation: I personally attest to this time spent taking care of the patient. Discharge Plan Discharge Clinical Impression: Septic shock, DKA (diabetic ketoacidosis) Patient Disposition: [facility] Transfer Details: ICU level of care, no beds in our unit. Prescriptions: No Action Lantus U-100 Insulin 100 unit/mL solution 35 unit subcut BEDTIME 0RF Hold Instructions: Resume on 05/07/21. cefazolin in dextrose (iso-os) 2 gram/50 mL Piggyback 2 g IV Q8H Qty: 10 0RF vancomycin HCl in water 100 mg/mL solution 1 g IV Q12H Qty: 200 0RF Lantus U-100 Insulin 100 unit/mL Solution 20 unit subcut BEDTIME Qty: 10 0RF nicotine (polacrilex) 2 mg Gum 2 mg buccal Q1H PRN (Reason: nicotine cravings) Qty: 10 0RF dextrose [Glutose-15] 40 % Gel 15 g PO Q15M PRN (Reason: Per Hypoglycemia Standing Ord.) Qty: 10 0RF Protocol: Glucose Gel Hypoglycemia Standing Order Protocol Text: For patients able to take PO (patient cooperative and able to swallow). Give Glucose Gel 15 gm PO for Blood Glucose (BG) < 70. Repeat BG every 15 min until BG > 70 x 3, if BG still < 70 and/or patient symptomatic repeat glucose gel or rapid acting carbohydrate. Notify MD if BG does not improve with treatment. insulin lispro [Humalog U-100 Insulin] 100 unit/mL Solution See Protocol unit subcut QIDACHS Qty: 10 0RF Protocol: Insulin Correction Scale Less than or equal to 110 ---- Give (units): 0 111 to 150 Give (units): 0 151 to 200 Give (units): 2 201 to 250 Give (units): 4 251 to 300 Give (units): 6 301 to 350 Give (units): 8 Greater than 350 Give (units): 10 Call MD if Blood Glucose > : 350 dextrose 50 % in water (D50W) Syringe 25 g IVPUSH Q15M PRN (Reason: Per Hypoglycemia Standing Ord.) Qty: 10 0RF Protocol: Dextrose 50% Hypoglycemia Standing Order Protocol Text: For patients who are NPO and have IV Access available (patient unconscious, uncooperative or unable to swallow and have IV Access available), Give Dextrose 50% - 25 gm IVPUSH for Blood Glucose (BG) < 70. Repeat BG every 15 min until BG > 70 x 3, if BG still < 70 and/or patient symptomatic repeat 50 % Dextrose 25 Gm IVPUSH. Notify MD if BG does not improve with treatment. ondansetron HCl (PF) 4 mg/2 mL Solution 4 mg IVPUSH Q8H PRN (Reason: Nausea And Vomiting) Qty: 10 0RF Interventions: Acute Care Transfer Worksheet (ED) Last Done: 06/22/21 09:00 Discharge Date/Time: 06/22/21 09:02
[2021-06-22 03:47] LABS: Hemoglobin 9.2 g/dl (12.0-16.0); PLT ABN DIST 1; Red Cell Distribution Width 17.6 % (11.0-16.0)
[2021-06-22 03:49] LABS: Hematocrit 32.2 % (37.0-47.0); Mean Corpuscular HGB Conc 28.6 g/dl (31.0-35.0); Mean Corpuscular Hemoglobin 27.6 pg (27.0-33.0); Mean Corpuscular Volume 96.7 fL (80.0-98.0); Red Blood Count 3.33 X10*6/uL (4.20-5.50); White Blood Count 26.4 X10*3/uL (4.8-10.8)
[2021-06-22 03:53] LABS: INTERNATIONAL NORM RATIO 2.3 (0.9-1.1); Prothrombin Time 26.6 SEC (9.9-13.0)
[2021-06-22 03:53] LABS: Venous Blood Gas Refer to POC result
[2021-06-22 03:54] LABS: VBG Base Excess -28.3 mmol/L; VBG HCO3 3 mmol/L (22-26); VBG pCO2 19 mmHg; VBG pH 6.87 (7.32-7.43); VBG pO2 77 mmHg
[2021-06-22] MEDS: Sodium Bicarbonate 8.4% 50 MEQ/50 ML SYRINGE IVPUSH (03:58)
[2021-06-22] MEDS: Piperacillin Sodium/Tazobactam 3.375 GM in 0.9 % Sodium Chloride 50 ML IV (04:01)
[2021-06-22 04:02] LABS: COVID-19 Test Negative (Negative)
[2021-06-22 04:04] LABS: Platelet Count 24 X10*3/uL (160-400)
[2021-06-22 04:07] LABS: Band Neutrophils Percent 18 % (3-5); Lymphocytes Absolute Manual 1.1 X10*3/uL (1.2-4.9); Lymphocytes Percent Manual 4 % (20-40); Monocytes Absolute Manual 0.3 X10*3/uL (0.1-1.2); Monocytes Percent Manual 1 % (2-11); Neutrophils Absolute Manual 25.1 X10*3/uL (2.0-8.3); Neutrophils Percent Manual 77 % (45-73)
[2021-06-22 04:08] VITALS: BMI 18.0
[2021-06-22 04:08] LABS: Burr Cells 1+ (0-2) /OIF; Giant Platelet PRESENT; Large Platelet PRESENT; Platelet Estimate DECREASED (NORMAL); Platelet Morphology Comment NOTED; RBC Morphology NOTED; Toxic Granulation PRESENT; Toxic Vacuolation PRESENT
[2021-06-22] MEDS: 0.9 % Sodium Chloride 1,496.85 ML 1496.85 ML IV (04:14)
[2021-06-22] MEDS: LORazepam 2 MG/ML VIAL 1 MG IVPUSH (04:15)
[2021-06-22] MEDS: vancomycin HCL 1,000 MG in 0.9 % Sodium Chloride 250 ML 270 MG IV (04:17)
[2021-06-22 04:18] LABS: Alanine Aminotransferase 10 U/L (0-31); Albumin Level 2.4 g/dL (3.5-5.0); Alkaline Phosphatase 216 U/L (39-117); Aspartate Amino Transferase 29 U/L (5-31); Bilirubin Total 0.8 mg/dL (0.0-1.0); Blood Urea Nitrogen 30 mg/dL (9-16); Calcium 9.1 mg/dL (8.4-10.2); Carbon Dioxide < 5 mmol/L (22-29); Chloride 87 mmol/L (96-108); Creatinine Clr Calc Pharmacy 33.9; Estimated Glomerular Filt Rate 30; Potassium 3.4 mmol/L (3.3-5.1); Sodium 128 mmol/L (135-145); Total Protein 5.5 g/dL (6.5-8.0)
[2021-06-22 04:23] VITALS: BP 93/35; PULSE 129; RESP 60; TEMP 37.1; O2SAT 95
[2021-06-22 04:28] LABS: Appearance Urine CLEAR; Color Urine YELLOW; Glucose Urine UA 500 MG/DL (NEG); Leukocyte Esterase Urine NEG (NEG); Nitrite Urine NEG (NEG); UACC Culture Trigger NO; UPreg QC Valid YES; Urine Blood 3+ (NEG); Urine Ketones >=80 MG/DL (NEG); Urine Pregnancy NEGATIVE (NEGATIVE); Urine Protein 1+ MG/DL (NEG-TRACE)
[2021-06-22] MEDS: levETIRAcetam in NaCl (iso-os) 1,500 MG/100 ML PIGGYBACK 400 MG IV (04:30)
[2021-06-22 04:31] LABS: Glucose Random 881 mg/dL (60-115); Lactic Acid 15.7 mmol/L (0.5-2.0)
[2021-06-22 04:39] LABS: Magnesium 2.7 mg/dL (1.6-2.6)
[2021-06-22 04:40] LABS: Amphetamine Screen Urine Not Detected (Not Detect); Barbiturates, Urine Not Detected (Not Detect); Benzodiazepines Screen Urine Not Detected (Not Detect); Cannabinoid Screen Urine POSITIVE (Not Detect); Cocaine Screen Urine Not Detected (Not Detect); Fentanyl, urine POSITIVE (Not Detect); Opiate Screen Urine POSITIVE (Not Detect); Phencyclidine Screen Urine Not Detected (Not Detect)
[2021-06-22 04:41] LABS: Bacteria Urine TRACE /LPF; Mucus Urine TRACE /LPF; Squamous Epithelial Cell Urine 1+ /LPF; UACC CULT YES
[2021-06-22] MEDS: 0.9 % Sodium Chloride 4,000 ML 999 ML IV (04:45)
[2021-06-22] MEDS: Sodium Bicarbonate 8.4% 150 MEQ in Dextrose 5 % 850 ML IV (04:52)
[2021-06-22] MEDS: Insulin Regular, Human 100 UNIT/ML 3 ML VIAL IVPUSH (04:57)
[2021-06-22] MEDS: Potassium Chloride/H20 10 MEQ/100 ML PIGGYBACK 100 MEQ IV ×2 (05:05→06:04)
[2021-06-22 05:09] LABS: Glucose, Whole Blood > 600 mg/dL (60-115)
[2021-06-22 05:20] VITALS: BP 108/40; PULSE 124; RESP 60; TEMP 36.2; O2SAT 97
[2021-06-22 05:23] LABS: Venous Blood Gas Refer to POC result
[2021-06-22 05:24] LABS: VBG Base Excess -19.9 mmol/L; VBG HCO3 7 mmol/L (22-26); VBG pCO2 19 mmHg; VBG pH 7.14 (7.32-7.43); VBG pO2 92 mmHg
[2021-06-22 05:28] VITALS: BP 104/52; PULSE 121; RESP 61; TEMP 36.2; O2SAT 94
--- NOTE | 2021-06-22 05:45 | PC.NURSE ---
I assumed nursing care of this patient upon her arrival to room 4 via EMS. On arrival pt was noted to be lethargic and pale. She arrived with an I/O to L tibial tuberosity. Immediately she was undressed and placed on all bedside monitors. ER MD was to bedside upon arrival and RT was paged to bedside. Pt was noted to have adequate room air sat's and at that time a R IJ TL CL was placed by Dr. Pleitez. Additional peripheral IV access was obtained in L A/C and all labs were obtained and sent to lab. At that time she was noted to be in a tachycardia with a rate in the 140's, regular. A temperature sensing Sanchez catheter was placed and moderate amounts of clear yellow urine draining. Her Bp was noted to be in the high 70's-low 80's systolically/30-40's diastolically. IVF's were initiated immediately after IV access was obtained. 2L NS were infusing immediately. A rectal temp revealed a temp of 100.4 on arrival. The pt appears thin, pale, emaciated, unkempt with multiple scattered scabbed over areas throughout her entire body surface - some of these scabs appear to have been picked open and were bleeding. Coccyx appears extremely reddened and excoriated. Pt has received numerous IV medications, see EMAR for drugs/doses/times. Currently she is being given Kcl 10meq/100ml via central line x 2 (20meq via central line at one time, max rate via central line per pharmacy), the 4th L of NS in infusing via the central line. She has been given Vanco and it has completed. She has been given IVP Sodium BiCarb and 5 units IVP regular insulin as her blood sugar was noted to be greater than 900. María's respiratory rate has been markedly elevated since she arrived to the ER - her RR has held in the 50's-60's since she arrived, Dr. Pleitez aware. Approximately 30 minutes after arrival her sat's on 2L nasal cannula dropped, her eyes rolled back in her head and she began to exhibit decorticate posturing and facial twitching. Her RR decreased significntly at that time from a RR in the 50's to a RR of 8. She appeared to be having a seizure. Maik REYES to bedside and 1mg Ativan IVP given. Pt was briefly assisted with ventilation with BVM but within a very short time her RR returned to the mid 50's and her sat's, on 2L nasal cannula, improved to 95%. Seizure activity appeared to last approximately one minute. Since the seizure the pt has not opened her eyes or made eye contact with staff. Prior to the seizure she was making eye contact and tracking staff in the room, although she was not verbal with staff. We will continue to monitor María.
[2021-06-22 05:46] LABS: Reflex Lactate? Lactic Acid Added
[2021-06-22 05:50] VITALS: BP 103/67; PULSE 121; RESP 70; TEMP 36.2; O2SAT 35
--- NOTE | 2021-06-22 05:51 | PC.NURSE ---
pt RR increased to 70/min 02 sat down to 35% on 2L with good pleth. pt appearing pale, unresponsive to sternal rub. NC increased to 5L, 02 sat back up to 97%. at [facility]. RT paged.
[2021-06-22 05:53] LABS: Alanine Aminotransferase 7 U/L (0-31); Albumin Level 1.8 g/dL (3.5-5.0); Alkaline Phosphatase 176 U/L (39-117); Anion Gap 28 (12-20); Aspartate Amino Transferase 24 U/L (5-31); Bilirubin Total 0.6 mg/dL (0.0-1.0); Blood Urea Nitrogen 28 mg/dL (9-16); Calcium 7.5 mg/dL (8.4-10.2); Carbon Dioxide 8 mmol/L (22-29); Chloride 99 mmol/L (96-108); Creatinine Clr Calc Pharmacy 41.4; Estimated Glomerular Filt Rate 37; Glucose Random 795 mg/dL (60-115); Potassium 2.2 mmol/L (3.3-5.1); Sodium 133 mmol/L (135-145)
[2021-06-22 05:58] VITALS: BP 95/68; PULSE 120; RESP 69; TEMP 36.2; O2SAT 98
[2021-06-22] MEDS: Potassium Chloride/H20 20 MEQ/100 ML PIGGYBACK 100 MEQ IV (06:39)
--- NOTE | 2021-06-22 07:09 | PC.NURSE ---
this travel writer assumed care of this pt at 0700. VS- b/p 116/65, p 124, resp. 61, o2 sat 100% 4L n/c co2 14, temp 97.0 via temp sensing Sanchez. pt's status stable. awaiting acceptance to ICU at another hospital
[2021-06-22] MEDS: Lactated Ringers 2,000 ML 999 ML IV (07:20)
--- NOTE | 2021-06-22 07:58 | PC.NURSE ---
[facility] CALLS AND GIVES RNR TO RN AND ROOM ASSIGNMENT ICU BED 14 RN TO RN [phone]
[2021-06-22] MEDS: Potassium Chloride/H20 40 MEQ/100 ML PIGGYBACK 100 MEQ IV (08:04)
--- NOTE | 2021-06-22 08:10 | PC.NURSE ---
@ 08:03 DR WALL REQUESTS A CALL OUT TO BOOK THE AMBULNCE A [facility] ALEX ANSWERS AND STATES SHE WILL SEND A TRUCK RIGHT AWAY
--- NOTE | 2021-06-22 08:30 | PC.NURSE ---
report given to ICU nurse SHELIA Durán at [facility]. Pt will be transferred to room 314.
[2021-06-22 08:51] LABS: Glucose, Whole Blood > 600 mg/dL (60-115)
--- NOTE | 2021-06-22 08:59 | PC.NURSE ---
report given to ems crew. pt stable on transport.
[2021-06-22 09:37] LABS: Glucose, Whole Blood > 600 mg/dL (60-115)
[2021-06-22 09:43] LABS: Glucose, Whole Blood > 600 mg/dL (60-115)
== END 2021-06-22 09:02 | disposition short-term general hospital (02) ==
PROVIDERS: Emergency Provider Student in an Organized Health Care Education/Training Program
DX: A41.02 Sepsis due to Methicillin resistant Staphylococcus aureus (principal); R65.21 Severe sepsis with septic shock; B96.1 Klebsiella pneumoniae [K. pneumoniae] as the cause of diseases classified elsewhere; E10.10 Type 1 diabetes mellitus with ketoacidosis without coma; G40.409 Other generalized epilepsy and epileptic syndromes, not intractable, without status epilepticus; R00.0 Tachycardia, unspecified; F14.10 Cocaine abuse, uncomplicated; F19.10 Other psychoactive substance abuse, uncomplicated; F17.200 Nicotine dependence, unspecified, uncomplicated; Z79.4 Long term (current) use of insulin; Z20.822 Contact with and (suspected) exposure to COVID-19
CPT/HCPCS: 36415; 36569; 71045; 80053; 80307; 81001; 81025; 82803; 82947; 83605; 83735; 85007; 85027; 85610; 87040; 87077; 87086; 87088; 87147; 87186; 87205; 87635; 93005; 96361; 96365; 96366; 96367; 96375; 99285; 99291; J1953; J2060; J2543; J3370

== ENCOUNTER 2021-08-19 12:54 | Inpatient (IN) | payer MEDICAID, SELFPAY ==
[2021-08-19] VITALS (10 sets, daily range): BP systolic 108–150; BP diastolic 50–84; PULSE 96–150; RESP 13–34; TEMP 36.6–36.8; O2SAT 92–100; BMI 12.8
--- NOTE | ~2021-08-19 | XR_ITS ---
EXAMINATION: XR CHEST CLINICAL INFORMATION: Leukocytosis. COMPARISON: 06/22/2021 chest radiograph. TECHNIQUE: Frontal view of the chest was obtained. FINDINGS: Increased opacities are seen laterally in the right lower lung with mild blunting of the right costophrenic angle. Minimal linear markings are seen at the left lung base. The heart and mediastinal structures are unremarkable. XR/XR chest 1V IMPRESSION: Increased right lower lung opacification with probable small right pleural effusion suggesting an infectious/inflammatory process increased from the previous study.
--- NOTE | ~2021-08-19 | CT_ITS ---
EXAMINATION: CT LUMBAR SPINE WITHOUT CONTRAST CLINICAL INFORMATION: Low back pain. History of IV drug abuse. Rule out infection. COMPARISON: Previous CT and x-ray of the lumbar spine April 2021 TECHNIQUE: Axial images through the lumbar spine without contrast. Sagittal and coronal reconstructions on the technologist workstation were performed. This CT examination was performed using dose optimization techniques as appropriate, variously including the following: *Automated exposure control *Adjustment of mA and/or kV according to patient size (this includes techniques or standardized protocols for targeted exams where dose is matched to indication/reason for exam; i.e. extremities or head) *Use of iterative reconstruction technique DLP; 365 mGy-cm FINDINGS: There is curvature of the lower lumbar sacral spine to the right. Bone alignment is otherwise normal. No fracture or dislocation is seen. There is disc bulge at L4-L5. No disc herniation is seen. There is heterogeneous attenuation cortical irregularity and cortical thickening of the right iliac bone near the sacroiliac joint. There is widening of the right sacroiliac joint and to lesser extent similar changes in the sacrum. Appearance is suggestive of septic sacroiliitis and secondary osteomyelitis. There is a pathologic fracture of the iliac bone. These findings are new or increased April 2021 exam. The previously identified right iliopsoas abscess is no longer seen The liver may be enlarged. There is a G-tube. There are postsurgical changes to the small bowel. There is an IUD in the uterus. 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 There is a pathologic fracture of the iliac bone. Mild disc bulge in the lower lumbar spine. The previously identified large right iliopsoas abscess seen on April 2021 exam as resolved.
--- NOTE | 2021-08-19 13:04 | ED.AMS ---
HPI - Altered Mental Status General Chief Complaint: General Medical Stated Complaint: unresponsive Time Seen by Provider: 08/19/21 13:04 Source: family Mode of arrival: other (dropped off) Limitations: altered mental status History of Present Illness HPI narrative: patient dropped off minimally responsive. patient is not acting normally MD complaint: altered mental status Severity: severe Context: drug abuse and diabetes Related Data Home Medications Medication Instructions Recorded Confirmed insulin glargine 100 unit/mL 35 unit SUBCUT BEDTIME 05/06/21 05/06/21 subcutaneous solution (Lantus U-100 Insulin) Previous Rx's Medication Instructions Recorded cefazolin 2 gram/50 mL in dextrose 2 g (50 mL) IV Q8H #10 ea 05/07/21 (iso-osmotic) intravenous piggyback dextrose 40 % oral gel (Glutose-15) 15 g PO Q15M PRN #10 g 05/07/21 dextrose 50 % in water (D50W) 25 g IVPUSH Q15M PRN #10 ml 05/07/21 insulin glargine 100 unit/mL 20 unit (0.2 mL) SUBCUT BEDTIME 05/07/21 subcutaneous solution (Lantus #10 ml U-100 Insulin) insulin lispro 100 unit/mL See Protocol SUBCUT QIDACHS #10 ml 05/07/21 subcutaneous solution (Humalog U-100 Insulin) nicotine (polacrilex) 2 mg gum 2 mg BUCCAL Q1H PRN #10 ea 05/07/21 ondansetron HCl (PF) 4 mg/2 mL 4 mg (2 mL) IVPUSH Q8H PRN #10 ml 05/07/21 injection solution vancomycin HCl 100 mg/mL in 1 g IV Q12H #200 ml 05/07/21 sterile water intravenous solution Allergies Allergy/AdvReac Type Severity Reaction Status Date / Time No Known Allergies Allergy Verified 05/06/21 05:11 Review of Systems Review of Systems: Yes Unobtainable due to mental status Constitutional: Constitutional: Reports no additional constitutional complaints Eyes: Eyes: Reports no additional eye complaints ENT: Denies dizziness Cardiovascular: Cardiovascular: Reports no additional cardiovascular complaints Respiratory: Respiratory: Reports as per HPI Gastrointestinal: Gastrointestinal: Reports no additional gastrointestinal complaints Genitourinary: Genitourinary: Reports no additional female genitourinary complaints Musculoskeletal: Musculoskeletal: Reports no additional musculoskeletal complaints Integumentary/Breasts: Skin/Breast: Denies rash Neurologic: Reports system reviewed and no additional complaints, except as documented, Denies dizziness and Denies Sensory deficit (Neuro) Psychiatric: Psychiatric: Denies anxiety PMFSH Past Medical History Medical History Anxiety Bacteremia Bacteremia due to methicillin susceptible Staphylococcus aureus (MSSA) Cocaine abuse Diabetes mellitus type 1 Endocarditis Heroin abuse Leukocytosis Polysubstance abuse Staphylococcus aureus bacteremia Substance abuse Social History Social History Household Members: Other Household Members Other:: currently living with her boyfriend Housing: Apartment Do you presently have visiting nurse or other home services: No Patient Tobacco Use Status: Current everyday Tobacco user Tobacco use type: Cigarette Cigarette Packs Per Day: 1 Cigarettes Per Day: 20.0 Years Smoked: ''since I was 16'' e-Cigarette/Vaping Use: Former Use Second Hand Smoke Exposure: Yes Substance Use Type: Heroin Advance Directives: No Advance Directives Information Provided: No service: No Current occupational status: unemployed Sexual orientation: Straight/Heterosexual Physical Exam ED Vital Signs: Vital Signs - 24 hr 08/19/21 12:59 08/19/21 14:00 Temperature 98 F Pulse Rate 150 H 125 H Respiratory Rate 22 H 22 H Blood Pressure 111/73 Pulse Oximetry 96 BMI result Body Mass Index 12.8 Const Other: Patient is cachectic, chronically ill appearing, screaming, writhing Limitations: altered mental status HENMT Head: Yes normal to inspection Ears: external ears normal General nose exam: Normal external nose present Mouth: Normal oral and palatal mucosa present and oropharynx normal Throat: Yes posterior oropharynx normal Eyes General: appearance normal, both eyes and all related structures Neck Neck: Yes normal visual inspection Chest Chest palpation & inspection: normal inspection of the chest Resp Auscultation: clear to auscultation bilaterally Cardio Jugular venous distension: no JVD Rate: regular rate Rhythm: regular rhythm Heart sounds: S1 normal heart sound present and S2 normal heart sound present GI Other: scaphoid abdomen, large midline scar, peg nontender Auscultation: normal bowel sounds General: Yes no CVA tenderness Back/Spine/Pelvis Back: no CVA tenderness Skin General skin exam: no rashes or lesions noted Neuro Cranial nerves: Yes CN's II-XII intact bilaterally Motor exam (neuro): 5/5 motor strength present throughout Sensory Exam: No Sensory deficit (Neuro) Extrem General: Yes normal to inspection Psych Other: screaming writhing Course Reevaluation(s) Reevaluation #1: Patient now awake and alert refusing care Time: 14:22 Reevaluation #2: restraints removed 30 minutes ago, patient now allowed me to place and IV and start fluids Time: 14:43 Reevaluation #3: Patient with mild DKA and sugar of 900 will admit Time: 15:41 MDM - Altered Mental Status Lab Data Result diagrams: 08/19/21 14:57 08/19/21 14:57 Labs: Lab Results 08/19/21 08/19/21 08/19/21 Range/Units 13:04 13:07 14:55 WBC (4.8-10.8) X10*3/uL RBC (4.20-5.50) X10*6/uL Hgb (12.0-16.0) g/dl Hct (37.0-47.0) % MCV (80.0-98.0) fL MCH (27.0-33.0) pg MCHC (31.0-35.0) g/dl RDW (11.0-16.0) % Plt Count (160-400) X10*3/uL MPV (9.4-12.3) fL Immature Gran % (Auto) (0.0-0.4) % Neut % (Auto) (45-73) % Lymph % (Auto) (20-40) % [place] % (Auto) (2-11) % Eos % (Auto) (0-4) % Baso % (Auto) (0-2) % Lymph # (Auto) (1.2-4.9) X10*3/uL [place] # (Auto) (0.1-1.2) X10*3/uL Eos # (Auto) (0.0-0.4) X10*3/uL Baso # (Auto) (0.0-0.2) X10*3/uL Abs Immat Gran (auto) (0.00-0.03) X10*3/uL Absolute Neuts (auto) (2.0-8.3) x10*3/uL Absolute Nucleated RBC (0.0-0.012) X10*3/uL Nucleated RBC % (auto) (0.0-0.2) /100WBC VBG pH 7.28 L (7.32-7.43) VBG pCO2 42 mmHg VBG pO2 64 mmHg VBG HCO3 20 L (22-26) mmol/L VBG O2 Saturation 83.0 % VBG Base Excess -6.0 mmol/L Sodium (135-145) mmol/L Potassium (3.3-5.1) mmol/L Chloride (96-108) mmol/L Carbon Dioxide (22-29) mmol/L Anion Gap (12-20) BUN (9-16) mg/dL Creatinine (0.5-1.4) mg/dL Estim Creat Clear Calc Estimated GFR POC Glucose > 600 H* > 600 H* (60-115) mg/dL Random Glucose (60-115) mg/dL Lactic Acid (0.5-2.0) mmol/L Calcium (8.4-10.2) mg/dL Ammonia (13-55) umol/L Troponin I High Sens (<3.5-17.0) ng/L 08/19/21 08/19/21 08/19/21 Range/Units 14:57 14:57 14:57 WBC 20.0 H (4.8-10.8) X10*3/uL RBC 4.32 D (4.20-5.50) X10*6/uL Hgb 11.9 L D (12.0-16.0) g/dl Hct 38.3 (37.0-47.0) % MCV 88.7 (80.0-98.0) fL MCH 27.5 (27.0-33.0) pg MCHC 31.1 (31.0-35.0) g/dl RDW 15.8 (11.0-16.0) % Plt Count 411 H D (160-400) X10*3/uL MPV 10.2 (9.4-12.3) fL Immature Gran % (Auto) 0.5 H (0.0-0.4) % Neut % (Auto) 88.5 H (45-73) % Lymph % (Auto) 6.6 L (20-40) % [place] % (Auto) 4.3 (2-11) % Eos % (Auto) 0.0 (0-4) % Baso % (Auto) 0.1 (0-2) % Lymph # (Auto) 1.3 (1.2-4.9) X10*3/uL [place] # (Auto) 0.9 (0.1-1.2) X10*3/uL Eos # (Auto) 0.0 (0.0-0.4) X10*3/uL Baso # (Auto) 0.0 (0.0-0.2) X10*3/uL Abs Immat Gran (auto) 0.09 H (0.00-0.03) X10*3/uL Absolute Neuts (auto) 17.7 H (2.0-8.3) x10*3/uL Absolute Nucleated RBC 0.000 (0.0-0.012) X10*3/uL Nucleated RBC % (auto) 0.0 (0.0-0.2) /100WBC VBG pH (7.32-7.43) VBG pCO2 mmHg VBG pO2 mmHg VBG HCO3 (22-26) mmol/L VBG O2 Saturation % VBG Base Excess mmol/L Sodium 139 (135-145) mmol/L Potassium 4.3 D (3.3-5.1) mmol/L Chloride 95 L (96-108) mmol/L Carbon Dioxide 19 L (22-29) mmol/L Anion Gap 29 H (12-20) BUN 37 H (9-16) mg/dL Creatinine 1.99 H (0.5-1.4) mg/dL Estim Creat Clear Calc 22.0 Estimated GFR 31 POC Glucose (60-115) mg/dL Random Glucose 940 H* (60-115) mg/dL Lactic Acid (0.5-2.0) mmol/L Calcium 12.1 H D (8.4-10.2) mg/dL Ammonia (13-55) umol/L Troponin I High Sens 6.7 (<3.5-17.0) ng/L 08/19/21 08/19/21 Range/Units 14:57 14:57 WBC (4.8-10.8) X10*3/uL RBC (4.20-5.50) X10*6/uL Hgb (12.0-16.0) g/dl Hct (37.0-47.0) % MCV (80.0-98.0) fL MCH (27.0-33.0) pg MCHC (31.0-35.0) g/dl RDW (11.0-16.0) % Plt Count (160-400) X10*3/uL MPV (9.4-12.3) fL Immature Gran % (Auto) (0.0-0.4) % Neut % (Auto) (45-73) % Lymph % (Auto) (20-40) % [place] % (Auto) (2-11) % Eos % (Auto) (0-4) % Baso % (Auto) (0-2) % Lymph # (Auto) (1.2-4.9) X10*3/uL [place] # (Auto) (0.1-1.2) X10*3/uL Eos # (Auto) (0.0-0.4) X10*3/uL Baso # (Auto) (0.0-0.2) X10*3/uL Abs Immat Gran (auto) (0.00-0.03) X10*3/uL Absolute Neuts (auto) (2.0-8.3) x10*3/uL Absolute Nucleated RBC (0.0-0.012) X10*3/uL Nucleated RBC % (auto) (0.0-0.2) /100WBC VBG pH (7.32-7.43) VBG pCO2 mmHg VBG pO2 mmHg VBG HCO3 (22-26) mmol/L VBG O2 Saturation % VBG Base Excess mmol/L Sodium (135-145) mmol/L Potassium (3.3-5.1) mmol/L Chloride (96-108) mmol/L Carbon Dioxide (22-29) mmol/L Anion Gap (12-20) BUN (9-16) mg/dL Creatinine (0.5-1.4) mg/dL Estim Creat Clear Calc Estimated GFR POC Glucose (60-115) mg/dL Random Glucose (60-115) mg/dL Lactic Acid 3.5 H* (0.5-2.0) mmol/L Calcium (8.4-10.2) mg/dL Ammonia 25 (13-55) umol/L Troponin I High Sens (<3.5-17.0) ng/L ECG Data ECG #1: Attestation: I personally reviewed and interpreted this ECG as follows: Interpretation: sinus tachycardia rate of 140 Procedures Procedure Narrative Procedure Narrative: prepped for peripheral IV, place under ultrasound with good blood return Critical Care Time Critical Care Time Attestation: I spent 40 minutes of critical care, with interventions, assessments, speaking to patient, consultants, and family. Discharge Plan Discharge Clinical Impression: DKA (diabetic ketoacidosis), RUDI (acute kidney injury), Opioid use disorder, severe, dependence Patient Disposition: Admitted As Inpatient
--- NOTE | 2021-08-19 13:13 | ECG_ITS ---
Test Reason : OVERDOSE Blood Pressure : / mmHG Vent. Rate : 144 BPM Atrial Rate : 144 BPM P-R Int : 134 ms QRS Dur : 070 ms QT Int : 282 ms P-R-T Axes : 071 078 043 degrees QTc Int : 436 ms Sinus tachycardia Otherwise normal ECG When compared with ECG of 22-JUN-2021 03:37, No significant change was found Referred By: Kennedy Wetzel Electronically Signed By:Constantine Montalvo
[2021-08-19 13:14] LABS: Glucose, Whole Blood > 600 mg/dL (60-115)
[2021-08-19 13:14] LABS: Glucose, Whole Blood > 600 mg/dL (60-115)
[2021-08-19] MEDS: Haloperidol Lactate 5 MG/ML VIAL IM (13:20)
[2021-08-19] MEDS: Insulin Lispro 100 UNIT/ML 3 ML VIAL 10 UNIT SUBCUT (13:20)
[2021-08-19] MEDS: LORazepam 2 MG/ML VIAL IM (13:21)
[2021-08-19 15:01] LABS: Venous Blood Gas Refer to POC result
[2021-08-19 15:02] LABS: VBG HCO3 20 mmol/L (22-26); VBG pCO2 42 mmHg; VBG pH 7.28 (7.32-7.43); VBG pO2 64 mmHg
[2021-08-19 15:03] LABS: MANUAL DIFF FLAG NO
[2021-08-19 15:12] LABS: Ammonia 25 umol/L (13-55)
[2021-08-19 15:16] LABS: Basophils Percent Auto 0.1 % (0-2); Hematocrit 38.3 % (37.0-47.0); Hemoglobin 11.9 g/dl (12.0-16.0); Imm Gran Abs Auto 0.09 X10*3/uL (0.00-0.03); Imm Gran Pct Auto 0.5 % (0.0-0.4); Lymphocytes Absolute Auto 1.3 X10*3/uL (1.2-4.9); Lymphocytes Percent Auto 6.6 % (20-40); Mean Corpuscular HGB Conc 31.1 g/dl (31.0-35.0); Mean Corpuscular Hemoglobin 27.5 pg (27.0-33.0); Mean Corpuscular Volume 88.7 fL (80.0-98.0); Mean Platelet Volume 10.2 fL (9.4-12.3); Monocytes Absolute Auto 0.9 X10*3/uL (0.1-1.2); Monocytes Percent Auto 4.3 % (2-11); Neutrophils Absolute Auto 17.7 x10*3/uL (2.0-8.3); Neutrophils Percent Auto 88.5 % (45-73); Platelet Count 411 X10*3/uL (160-400); Red Blood Count 4.32 X10*6/uL (4.20-5.50); Red Cell Distribution Width 15.8 % (11.0-16.0)
[2021-08-19 15:20] LABS: Lactic Acid 3.5 mmol/L (0.5-2.0)
[2021-08-19 15:25] LABS: Troponin-I High Sensitivity 6.7 ng/L (<3.5-17.0)
[2021-08-19 15:33] LABS: Anion Gap 29 (12-20); Blood Urea Nitrogen 37 mg/dL (9-16); Calcium 12.1 mg/dL (8.4-10.2); Carbon Dioxide 19 mmol/L (22-29); Chloride 95 mmol/L (96-108); Estimated Glomerular Filt Rate 31; Glucose Random 940 mg/dL (60-115); Potassium 4.3 mmol/L (3.3-5.1); Sodium 139 mmol/L (135-145)
[2021-08-19] MEDS: Insulin Regular, Human 100 UNIT/ML 3 ML VIAL 10 UNIT IVPUSH (16:05)
[2021-08-19] MEDS: Insulin Regular/NS 100 UNIT/100 ML PLAST..BAG 6 UNIT IVCONT (16:08)
--- NOTE | 2021-08-19 16:12 | PM.CCHP ---
History of Present Illness Date of Service: 08/19/21 Chief Complaint: Alteration of mental status 25-year-old lady with underlying history of polysubstance abuse including heroin, cocaine, amphetamine, MRSA bacteremia with prior endocarditis, recent admission to [facility] requiring chronic ventilatory support status post tracheostomy and reversal, also diabetes mellitus with poor compliance with insulin therapy and multiple prior admissions for DKA being admitted on 08/19/2021 after patient was dropped of at the emergency room with alteration of mental status. On ER evaluation patient lethargic, but responsive, laboratory work significant for leukocytosis, metabolic acidosis, hyperglycemia, and acute kidney injury. Patient has been started on insulin drip, IV fluid and colloidal support, broad-spectrum antibiotics, and admitted to the intensive care unit. Review of Systems Review of Systems: Yes Unobtainable due to mental condition and Unobtainable due to mental status PMFSH Past Medical History Medical History Anxiety Bacteremia Bacteremia due to methicillin susceptible Staphylococcus aureus (MSSA) Cocaine abuse Diabetes mellitus type 1 Endocarditis Heroin abuse Leukocytosis Polysubstance abuse Staphylococcus aureus bacteremia Substance abuse Social History Social History Household Members: Other Household Members Other:: currently living with her boyfriend Housing: Apartment Do you presently have visiting nurse or other home services: No Patient Tobacco Use Status: Current everyday Tobacco user Tobacco use type: Cigarette Cigarette Packs Per Day: 1 Cigarettes Per Day: 20.0 Years Smoked: ''since I was 16'' e-Cigarette/Vaping Use: Former Use Second Hand Smoke Exposure: Yes Substance Use Type: Heroin Advance Directives: No Advance Directives Information Provided: No service: No Current occupational status: unemployed Sexual orientation: Straight/Heterosexual Meds Allergies Allergy/AdvReac Type Severity Reaction Status Date / Time No Known Allergies Allergy Verified 05/06/21 05:11 Active Medications: Current Medications Heparin Sodium (Porcine) (Heparin Sodium,Porcine 5,000 Unit/Ml Vial) 5,000 unit SUBCUT Q8H [facility] Insulin Human Regular (Myxredlin) 100 unit in 100 mls @ 0 mls/hr IVCONT .Q0M MIKKI; Protocol Last Admin: 08/19/21 16:08 Dose: 6 units/hr, 6 mls/hr Documented by: Albumin Human (Kedbumin 25 %) 100 mls @ 100 mls/hr IV Q6H [facility] Stop: 08/19/21 23:14 Vancomycin HCl 750 mg/ Sodium (Chloride) 265 mls @ 265 mls/hr IV ONCE ONE Stop: 08/19/21 17:06 Piperacillin Sod/Tazobactam (Sod 3.375 gm/ Sodium Chloride) 50 mls @ 100 mls/hr IV ONCE ONE Stop: 08/19/21 16:37 Lactated Ringer's (Lr) 1,000 mls @ 100 mls/hr IVCONT .Q10H [facility] Home Medications Medication Instructions Recorded Confirmed Last Taken Type insulin glargine 100 unit/mL 35 unit SUBCUT BEDTIME 05/06/21 05/06/21 05/05/21 History subcutaneous solution (Lantus U-100 Insulin) Physical Exam Vital Signs: Vital Signs: Last Vital Signs Temp 98 F 08/19/21 12:59 Pulse 125 H 08/19/21 14:00 Resp 22 H 08/19/21 14:00 BP 111/73 08/19/21 14:00 Pulse Ox 96 08/19/21 14:00 BMI result Body Mass Index 12.8 Const: General: no acute distress and lethargic ( Minimally arousable) Nutritional Appearance: cachectic Orientation/consciousness: lethargic ( Minimally arousable) Eyes: Sclerae: sclerae normal EOM: EOMs intact bilaterally Neck: Neck: Yes no lymphadenopathy, Yes trachea midline, Yes supple and Yes other ( partially healed tracheostomy scar) Resp: Effort & Inspection: normal respiratory effort and no respiratory distress Auscultation: clear to auscultation bilaterally Cardio: Rate: tachycardic Rhythm: regular rhythm Heart sounds: no gallops, no murmurs and no rubs GI: Palpation (GI): Soft to palpation and Other GI palpation findings present ( Nontender) Auscultation: normal bowel sounds Extrem: General: Yes no pedal edema, No clubbing and No cyanosis Results Labs CBC and Chem 7: 08/19/21 14:57 08/19/21 14:57 Labs: Laboratory Results - last 24 hr 08/19/21 08/19/21 08/19/21 13:04 13:07 14:55 MCV MCH MCHC RDW Plt Count MPV Immature Gran % (Auto) Neut % (Auto) Lymph % (Auto) [place] % (Auto) Eos % (Auto) Baso % (Auto) Lymph # (Auto) [place] # (Auto) Eos # (Auto) Baso # (Auto) Abs Immat Gran (auto) Absolute Neuts (auto) Absolute Nucleated RBC Nucleated RBC % (auto) VBG pH 7.28 L VBG pCO2 42 VBG pO2 64 VBG HCO3 20 L VBG O2 Saturation 83.0 VBG Base Excess -6.0 Anion Gap Estim Creat Clear Calc Estimated GFR POC Glucose > 600 H* > 600 H* Random Glucose Lactic Acid Calcium Ammonia Troponin I High Sens 08/19/21 08/19/21 08/19/21 14:57 14:57 14:57 MCV 88.7 MCH 27.5 MCHC 31.1 RDW 15.8 Plt Count 411 H D MPV 10.2 Immature Gran % (Auto) 0.5 H Neut % (Auto) 88.5 H Lymph % (Auto) 6.6 L [place] % (Auto) 4.3 Eos % (Auto) 0.0 Baso % (Auto) 0.1 Lymph # (Auto) 1.3 [place] # (Auto) 0.9 Eos # (Auto) 0.0 Baso # (Auto) 0.0 Abs Immat Gran (auto) 0.09 H Absolute Neuts (auto) 17.7 H Absolute Nucleated RBC 0.000 Nucleated RBC % (auto) 0.0 VBG pH VBG pCO2 VBG pO2 VBG HCO3 VBG O2 Saturation VBG Base Excess Anion Gap 29 H Estim Creat Clear Calc 22.0 Estimated GFR 31 POC Glucose Random Glucose 940 H* Lactic Acid Calcium 12.1 H D Ammonia Troponin I High Sens 6.7 08/19/21 08/19/21 14:57 14:57 MCV MCH MCHC RDW Plt Count MPV Immature Gran % (Auto) Neut % (Auto) Lymph % (Auto) [place] % (Auto) Eos % (Auto) Baso % (Auto) Lymph # (Auto) [place] # (Auto) Eos # (Auto) Baso # (Auto) Abs Immat Gran (auto) Absolute Neuts (auto) Absolute Nucleated RBC Nucleated RBC % (auto) VBG pH VBG pCO2 VBG pO2 VBG HCO3 VBG O2 Saturation VBG Base Excess Anion Gap Estim Creat Clear Calc Estimated GFR POC Glucose Random Glucose Lactic Acid 3.5 H* Calcium Ammonia 25 Troponin I High Sens Assessment and Plan (1) DKA (diabetic ketoacidosis): Status: Acute (2) RUDI (acute kidney injury): Status: Acute (3) Acute metabolic encephalopathy: Status: Acute (4) Leukocytosis: Status: Acute (5) Substance abuse: Status: Acute Plan Assessment: 25-year-old lady with underlying polysubstance abuse, diabetes mellitus with multiple admissions for DKA, being admitted with DKA and leukocytosis. Plan: Neuro: Acute metabolic encephalopathy likely secondary to DKA, expect to improve with improvement in underlying ketoacidosis. Cardiac: No acute issues. Prior history of MRSA endocarditis. Pulmonary: No acute issues. Renal: Acute kidney injury, likely secondary to diabetic ketoacidosis. Non oliguric. Continue to monitor renal indices and urine output. Endo: Diabetic ketoacidosis with multiple prior history of similar admissions, continue to titrate off insulin drip as tolerated. GI: No acute issues. ID: Leukocytosis, unclear if reactive or not. Empirically covered with vancomycin and Zosyn. Cultures are pending. Heme/Onc: No acute issues. Psych: No acute issues. Miscellaneous: No acute issues. Prophylaxis: Heparin Diet: NPO Critical care time spent: 45 minutes
--- NOTE | 2021-08-19 16:14 | PC.NURSE ---
insulin bolus given IV, insulin drip started at 6U/hr per provider order.
[2021-08-19 16:34] LABS: Albumin Level 4.9 g/dL (3.5-5.0); Phosphorus 2.7 mg/dL (2.7-4.5)
--- NOTE | 2021-08-19 16:48 | PHA.MEDREC ---
Pharmacy Consult ? Medication Reconciliation Pharmacy has completed the medication reconciliation. Pt was awake, said she does not currently take any meds
[2021-08-19 17:01] LABS: COVID-19 Test Negative (Negative)
--- NOTE | 2021-08-19 17:01 | PC.NURSE ---
glucose dropped to 366, insulin drip titrated down to 3U/hr per protocol.
[2021-08-19 17:02] LABS: Reflex Lactate? Lactic Acid Added
[2021-08-19 17:43] LABS: Glucose, Whole Blood 366 mg/dL (60-115)
[2021-08-19 18:25] LABS: Glucose, Whole Blood 200 mg/dL (60-115)
[2021-08-19] MEDS: vancomycin HCL 750 MG in 0.9 % Sodium Chloride 250 ML 265 MG IV (18:44)
[2021-08-19] MEDS: Lactated Ringers 1,000 ML 100 ML IVCONT (18:45)
[2021-08-19] MEDS: Heparin Sodium,Porcine 5,000 UNIT/ML VIAL 5000 UNIT SUBCUT (18:47)
[2021-08-19] MEDS: Insulin Glargine,Hum.rec.anlog 100 UNIT/ML 10 ML VIAL 35 UNIT SUBCUT (18:48)
--- NOTE | 2021-08-19 18:52 | PC.NURSE ---
late note: pt arrived to ED unresponsive, hx dka/polysubstance use. pt medicated per provider order. 18G IV placed via u/s, labs drawn by provider. pt became more responsive after medication and was oriented to person/place. stated that she used heroin prior to arrival in ED. monitoring coordinator applied - sinus tach. cont'd medication per provider order. pt declined suboxone. provider attempted to get 2nd IV access, but was unable. pt transferred to ICU.
[2021-08-19 19:46] LABS: Anion Gap 19 (12-20); Blood Urea Nitrogen 31 mg/dL (9-16); Carbon Dioxide 25 mmol/L (22-29); Chloride 102 mmol/L (96-108); Creatinine Clr Calc Pharmacy 42.5; Estimated Glomerular Filt Rate > 60; Glucose Random 189 mg/dL (60-115); Potassium 3.8 mmol/L (3.3-5.1); Sodium 142 mmol/L (135-145)
[2021-08-19 19:52] LABS: Calcium 10.9 mg/dL (8.4-10.2)
[2021-08-19 20:11] LABS: Cancel Lactic Acid Canceled
[2021-08-19] MEDS: Piperacillin Sodium/Tazobactam 3.375 GM in 0.9 % Sodium Chloride 50 ML IV (20:22)
[2021-08-19 20:36] LABS: Glucose, Whole Blood 175 mg/dL (60-115)
[2021-08-19] MEDS: Insulin Lispro 100 UNIT/ML 3 ML VIAL SUBCUT (20:41)
[2021-08-19] MEDS: LORazepam 1 MG TABLET 2 MG PO (21:37)
[2021-08-19 21:56] LABS: Appearance Urine CLEAR; Color Urine YELLOW; Glucose Urine UA >=1000 MG/DL (NEG); Leukocyte Esterase Urine NEG (NEG); Nitrite Urine NEG (NEG); PH 5.5 (5.0-8.0); Specific Gravity - Urine 1.015 (1.005-1.025); UACC Culture Trigger NO; Urine Blood TRACE (NEG); Urine Ketones 15 MG/DL (NEG); Urine Protein NEG (NEG-TRACE)
[2021-08-19 21:58] LABS: UPreg QC Valid YES; Urine Pregnancy NEGATIVE (NEGATIVE)
[2021-08-19 22:06] LABS: Bacteria Urine TRACE /LPF; RBC Urine 0-2 /HPF (0); WBC Urine 0 /HPF (0-4)
[2021-08-19 22:08] LABS: Amphetamine Screen Urine Not Detected (Not Detect); Barbiturates, Urine Not Detected (Not Detect); Benzodiazepines Screen Urine Not Detected (Not Detect); Cannabinoid Screen Urine Not Detected (Not Detect); Cocaine Screen Urine POSITIVE (Not Detect); Fentanyl, urine POSITIVE (Not Detect); Opiate Screen Urine POSITIVE (Not Detect); Phencyclidine Screen Urine Not Detected (Not Detect)
--- NOTE | 2021-08-19 22:56 | PC.NURSE ---
ASSUMED CARE OF PT AT 1900. PT REFUSING TO HAVE BLOODWORK DRAWN. TALKED TO HER AND EXPLAINED WHY SHE NEEDS TO LET THE TECH DRAW HER AND SHE AGREED. UNABLE TO DRAW BLOOD BECAUSE SHE IS A DIFFICULT STICK. FINGERSTICK BLOOD DRAW FOR CHEM PROFILE DONE. RESULTS REVIEWED BY BRIDGRE MCMAHAN. POC AT 1999 WAS 175 AND COVERED BY SLIDING SCALE. NEXT POC DUE AT MIDNIGHT PER GLOVE PRINTER. PT TAKING PO FLUIDS WELL. VOIDED ON BEDPAN. URINE SENT FOR U/A, C&S PREG TEST AND DOA. PT RESTLESS, VAGUE. SEEKING ATTENTION. THREW PUDDING ON FLOOR. PULLED OUT IV. BRIDGER GLOVE PRINTER SPOKE TO PT. PT GIVEN ATIVAN 2 MG PO. RECEIVED HER ZOSYN AND VANCO IV BEFORE SHE PULLED IT OUT BUT DID NOT GET THE ORDERED ALBUMIN.
[2021-08-20] VITALS (14 sets, daily range): BP systolic 104–168; BP diastolic 38–81; PULSE 61–110; RESP 14–22; TEMP 36.4–37.2; O2SAT 93–98; BMI 17.5
[2021-08-20 00:36] LABS: Glucose, Whole Blood 41 mg/dL (60-115)
[2021-08-20] MEDS: Glucose Gel 15 GM GEL..GRAM. PO (00:43)
[2021-08-20 02:03] LABS: Glucose, Whole Blood 104 mg/dL (60-115)
[2021-08-20] MEDS: Heparin Sodium,Porcine 5,000 UNIT/ML VIAL 5000 UNIT SUBCUT ×3 (02:12→16:42)
--- NOTE | 2021-08-20 06:20 | PC.NURSE ---
Pt. refusing to have morning labs drawn. MARTIR Spaulding notified and aware. No new orders at this time
[2021-08-20 06:39] LABS: Glucose, Whole Blood 151 mg/dL (60-115)
[2021-08-20 07:32] LABS: Glucose, Whole Blood 124 mg/dL (60-115)
--- NOTE | 2021-08-20 08:40 | MHC.CLN ---
PT IS SEVERELY MALNOURISHED IN THE CONTEXT OF SOCIAL/BEHAVIOR/ENVIRONMENTAL FACTORS (POLYSUBSTANCE ABUSE) PT IS FAMILIAR TO FACILITY WITH MULTIPLE ADMISSIONS RECOMMEND ADDING GLUCERNA TID TO INCREASE KCALS FULL ASSESSMENT TO FOLLOW
[2021-08-20 09:06] LABS: MANUAL DIFF FLAG NO
[2021-08-20 09:10] LABS: Basophils Percent Auto 0.2 % (0-2); Eosinophils Absolute Auto 0.1 X10*3/uL (0.0-0.4); Eosinophils Percent Auto 0.5 % (0-4); Hematocrit 34.4 % (37.0-47.0); Imm Gran Abs Auto 0.05 X10*3/uL (0.00-0.03); Imm Gran Pct Auto 0.4 % (0.0-0.4); Lymphocytes Absolute Auto 2.7 X10*3/uL (1.2-4.9); Lymphocytes Percent Auto 19.9 % (20-40); Mean Corpuscular Hemoglobin 27.6 pg (27.0-33.0); Mean Corpuscular Volume 86.4 fL (80.0-98.0); Mean Platelet Volume 9.4 fL (9.4-12.3); Monocytes Absolute Auto 0.8 X10*3/uL (0.1-1.2); Monocytes Percent Auto 5.6 % (2-11); Neutrophils Absolute Auto 9.9 x10*3/uL (2.0-8.3); Neutrophils Percent Auto 73.4 % (45-73); Red Blood Count 3.98 X10*6/uL (4.20-5.50); Red Cell Distribution Width 15.9 % (11.0-16.0); White Blood Count 13.5 X10*3/uL (4.8-10.8)
[2021-08-20 09:14] LABS: VBG Base Excess 2.6 mmol/L; VBG HCO3 25 mmol/L (22-26); VBG pCO2 33 mmHg; VBG pH 7.48 (7.32-7.43); VBG pO2 60 mmHg
[2021-08-20 09:16] LABS: Platelet Count 280 X10*3/uL (160-400); Venous Blood Gas Refer to POC result
[2021-08-20 09:29] LABS: Alanine Aminotransferase 23 U/L (0-31); Albumin Level 3.6 g/dL (3.5-5.0); Alkaline Phosphatase 110 U/L (39-117); Anion Gap 15 (12-20); Aspartate Amino Transferase 25 U/L (5-31); Bilirubin Total 0.5 mg/dL (0.0-1.0); Blood Urea Nitrogen 20 mg/dL (9-16); Calcium 10.8 mg/dL (8.4-10.2); Carbon Dioxide 29 mmol/L (22-29); Chloride 99 mmol/L (96-108); Creatinine Clr Calc Pharmacy 52.7; Estimated Glomerular Filt Rate 59; Glucose Random 121 mg/dL (60-115); Magnesium 1.5 mg/dL (1.6-2.6); Phosphorus 1.9 mg/dL (2.7-4.5); Potassium 3.8 mmol/L (3.3-5.1); Sodium 139 mmol/L (135-145)
--- NOTE | 2021-08-20 09:47 | PM.CCPN ---
Subjective Subjective Date of Service: 08/20/21 Interval History: 25-year-old lady with underlying history of polysubstance abuse including heroin, cocaine, amphetamine, MRSA bacteremia with prior endocarditis, recent admission to [facility] requiring chronic ventilatory support status post tracheostomy and reversal, also diabetes mellitus with poor compliance with insulin therapy and multiple prior admissions for DKA being admitted on 08/19/2021 after patient was dropped of at the emergency room with alteration of mental status. On ER evaluation patient lethargic, but responsive, laboratory work significant for leukocytosis, metabolic acidosis, hyperglycemia, and acute kidney injury. Patient has been started on insulin drip, IV fluid and colloidal support, broad-spectrum antibiotics, and admitted to the intensive care unit. No events overnight. Titrated off insulin drip. Critical Care Time (minutes): 0 Physical Exam Vital Signs: Vital Signs: Last Vital Signs Temp 98.2 F 08/19/21 20:00 Pulse 81 08/20/21 08:59 Resp 14 08/20/21 08:59 BP 139/74 08/20/21 08:59 Pulse Ox 95 08/20/21 06:00 BMI result Body Mass Index 17.5 Const: General: no acute distress, alert and awake Eyes: Sclerae: sclerae normal EOM: EOMs intact bilaterally Neck: Neck: Yes no lymphadenopathy, Yes trachea midline and Yes supple Resp: Effort & Inspection: normal respiratory effort and no respiratory distress Auscultation: clear to auscultation bilaterally Cardio: Rate: regular rate Rhythm: regular rhythm Heart sounds: no gallops, no murmurs and no rubs GI: Palpation (GI): Soft to palpation and Other GI palpation findings present ( Nontender) Auscultation: normal bowel sounds Extrem: General: Yes no pedal edema, No clubbing and No cyanosis Objective Data Labs CBC & Chem 7: 08/20/21 08:59 08/20/21 08:59 Labs: Laboratory Results - last 24 hr 08/19/21 08/19/21 08/19/21 13:04 13:07 14:55 WBC RBC Hgb Hct MCV MCH MCHC RDW Plt Count MPV Immature Gran % (Auto) Neut % (Auto) Lymph % (Auto) [place] % (Auto) Eos % (Auto) Baso % (Auto) Lymph # (Auto) [place] # (Auto) Eos # (Auto) Baso # (Auto) Abs Immat Gran (auto) Absolute Neuts (auto) Absolute Nucleated RBC Nucleated RBC % (auto) VBG pH 7.28 L VBG pCO2 42 VBG pO2 64 VBG HCO3 20 L VBG O2 Saturation 83.0 VBG Base Excess -6.0 Sodium Potassium Chloride Carbon Dioxide Anion Gap BUN Creatinine Estim Creat Clear Calc Estimated GFR POC Glucose > 600 H* > 600 H* Random Glucose Lactic Acid Lactic Acid F/U @ 2Hr Calcium Phosphorus Magnesium Total Bilirubin AST ALT Alkaline Phosphatase Ammonia Troponin I High Sens Total Protein Albumin Urine Color Urine Appearance Urine pH Ur Specific [place] Urine Protein Urine Glucose (UA) Urine Ketones Urine Blood Urine Nitrite Ur Leukocyte Esterase Urine RBC Urine WBC Ur Squamous Epith Cells Urine Bacteria Urine Test Urine Opiates Screen Urine Fentanyl Screen Ur Barbiturates Screen Ur Phencyclidine Scrn Ur Amphetamines Screen U Benzodiazepines Scrn Urine Cocaine Screen U Marijuana (THC) Screen COVID-19 (BRENDA) COVID-19 Clin Com Blood Type Rho(D) Type Antibody Screen 08/19/21 08/19/21 08/19/21 14:57 14:57 14:57 WBC 20.0 H RBC 4.32 D Hgb 11.9 L D Hct 38.3 MCV 88.7 MCH 27.5 MCHC 31.1 RDW 15.8 Plt Count 411 H D MPV 10.2 Immature Gran % (Auto) 0.5 H Neut % (Auto) 88.5 H Lymph % (Auto) 6.6 L [place] % (Auto) 4.3 Eos % (Auto) 0.0 Baso % (Auto) 0.1 Lymph # (Auto) 1.3 [place] # (Auto) 0.9 Eos # (Auto) 0.0 Baso # (Auto) 0.0 Abs Immat Gran (auto) 0.09 H Absolute Neuts (auto) 17.7 H Absolute Nucleated RBC 0.000 Nucleated RBC % (auto) 0.0 VBG pH VBG pCO2 VBG pO2 VBG HCO3 VBG O2 Saturation VBG Base Excess Sodium 139 Potassium 4.3 D Chloride 95 L Carbon Dioxide 19 L Anion Gap 29 H BUN 37 H Creatinine 1.99 H Estim Creat Clear Calc 22.0 Estimated GFR 31 POC Glucose Random Glucose 940 H* Lactic Acid Lactic Acid F/U @ 2Hr Calcium 12.1 H D Phosphorus 2.7 Magnesium Total Bilirubin AST ALT Alkaline Phosphatase Ammonia Troponin I High Sens 6.7 Total Protein Albumin 4.9 D Urine Color Urine Appearance Urine pH Ur Specific [place] Urine Protein Urine Glucose (UA) Urine Ketones Urine Blood Urine Nitrite Ur Leukocyte Esterase Urine RBC Urine WBC Ur Squamous Epith Cells Urine Bacteria Urine Test Urine Opiates Screen Urine Fentanyl Screen Ur Barbiturates Screen Ur Phencyclidine Scrn Ur Amphetamines Screen U Benzodiazepines Scrn Urine Cocaine Screen U Marijuana (THC) Screen COVID-19 (BRENDA) COVID-19 Clin Com Blood Type Rho(D) Type Antibody Screen 08/19/21 08/19/21 08/19/21 14:57 14:57 14:57 WBC RBC Hgb Hct MCV MCH MCHC RDW Plt Count MPV Immature Gran % (Auto) Neut % (Auto) Lymph % (Auto) [place] % (Auto) Eos % (Auto) Baso % (Auto) Lymph # (Auto) [place] # (Auto) Eos # (Auto) Baso # (Auto) Abs Immat Gran (auto) Absolute Neuts (auto) Absolute Nucleated RBC Nucleated RBC % (auto) VBG pH VBG pCO2 VBG pO2 VBG HCO3 VBG O2 Saturation VBG Base Excess Sodium Potassium Chloride Carbon Dioxide Anion Gap BUN Creatinine Estim Creat Clear Calc Estimated GFR POC Glucose Random Glucose Lactic Acid 3.5 H* Lactic Acid F/U @ 2Hr Calcium Phosphorus Magnesium Total Bilirubin AST ALT Alkaline Phosphatase Ammonia 25 Troponin I High Sens Total Protein Albumin Urine Color Urine Appearance Urine pH Ur Specific [place] Urine Protein Urine Glucose (UA) Urine Ketones Urine Blood Urine Nitrite Ur Leukocyte Esterase Urine RBC Urine WBC Ur Squamous Epith Cells Urine Bacteria Urine Test Urine Opiates Screen Urine Fentanyl Screen Ur Barbiturates Screen Ur Phencyclidine Scrn Ur Amphetamines Screen U Benzodiazepines Scrn Urine Cocaine Screen U Marijuana (THC) Screen COVID-19 (BRENDA) COVID-19 Clin Com Blood Type Cancelled Rho(D) Type Cancelled Antibody Screen Cancelled 08/19/21 08/19/21 08/19/21 16:34 16:51 18:19 WBC RBC Hgb Hct MCV MCH MCHC RDW Plt Count MPV Immature Gran % (Auto) Neut % (Auto) Lymph % (Auto) [place] % (Auto) Eos % (Auto) Baso % (Auto) Lymph # (Auto) [place] # (Auto) Eos # (Auto) Baso # (Auto) Abs Immat Gran (auto) Absolute Neuts (auto) Absolute Nucleated RBC Nucleated RBC % (auto) VBG pH VBG pCO2 VBG pO2 VBG HCO3 VBG O2 Saturation VBG Base Excess Sodium Potassium Chloride Carbon Dioxide Anion Gap BUN Creatinine Estim Creat Clear Calc Estimated GFR POC Glucose 366 H* 200 H Random Glucose Lactic Acid Lactic Acid F/U @ 2Hr Calcium Phosphorus Magnesium Total Bilirubin AST ALT Alkaline Phosphatase Ammonia Troponin I High Sens Total Protein Albumin Urine Color Urine Appearance Urine pH Ur Specific [place] Urine Protein Urine Glucose (UA) Urine Ketones Urine Blood Urine Nitrite Ur Leukocyte Esterase Urine RBC Urine WBC Ur Squamous Epith Cells Urine Bacteria Urine Test Urine Opiates Screen Urine Fentanyl Screen Ur Barbiturates Screen Ur Phencyclidine Scrn Ur Amphetamines Screen U Benzodiazepines Scrn Urine Cocaine Screen U Marijuana (THC) Screen COVID-19 (BRENDA) Negative COVID-19 Clin Com See Note Blood Type Rho(D) Type Antibody Screen 08/19/21 08/19/21 08/19/21 18:27 18:27 20:22 WBC RBC Hgb Hct MCV MCH MCHC RDW Plt Count MPV Immature Gran % (Auto) Neut % (Auto) Lymph % (Auto) [place] % (Auto) Eos % (Auto) Baso % (Auto) Lymph # (Auto) [place] # (Auto) Eos # (Auto) Baso # (Auto) Abs Immat Gran (auto) Absolute Neuts (auto) Absolute Nucleated RBC Nucleated RBC % (auto) VBG pH VBG pCO2 VBG pO2 VBG HCO3 VBG O2 Saturation VBG Base Excess Sodium 142 Potassium 3.8 Chloride 102 Carbon Dioxide 25 Anion Gap 19 BUN 31 H Creatinine 1.03 Estim Creat Clear Calc 42.5 Estimated GFR > 60 POC Glucose 175 H Random Glucose 189 H D Lactic Acid Lactic Acid F/U @ 2Hr Cancelled Calcium 10.9 H D Phosphorus Magnesium Total Bilirubin AST ALT Alkaline Phosphatase Ammonia Troponin I High Sens Total Protein Albumin Urine Color Urine Appearance Urine pH Ur Specific [place] Urine Protein Urine Glucose (UA) Urine Ketones Urine Blood Urine Nitrite Ur Leukocyte Esterase Urine RBC Urine WBC Ur Squamous Epith Cells Urine Bacteria Urine Test Urine Opiates Screen Urine Fentanyl Screen Ur Barbiturates Screen Ur Phencyclidine Scrn Ur Amphetamines Screen U Benzodiazepines Scrn Urine Cocaine Screen U Marijuana (THC) Screen COVID-19 (BRENDA) COVID-19 Clin Com Blood Type Rho(D) Type Antibody Screen 08/19/21 08/19/21 08/19/21 21:40 21:40 21:40 WBC RBC Hgb Hct MCV MCH MCHC RDW Plt Count MPV Immature Gran % (Auto) Neut % (Auto) Lymph % (Auto) [place] % (Auto) Eos % (Auto) Baso % (Auto) Lymph # (Auto) [place] # (Auto) Eos # (Auto) Baso # (Auto) Abs Immat Gran (auto) Absolute Neuts (auto) Absolute Nucleated RBC Nucleated RBC % (auto) VBG pH VBG pCO2 VBG pO2 VBG HCO3 VBG O2 Saturation VBG Base Excess Sodium Potassium Chloride Carbon Dioxide Anion Gap BUN Creatinine Estim Creat Clear Calc Estimated GFR POC Glucose Random Glucose Lactic Acid Lactic Acid F/U @ 2Hr Calcium Phosphorus Magnesium Total Bilirubin AST ALT Alkaline Phosphatase Ammonia Troponin I High Sens Total Protein Albumin Urine Color YELLOW Urine Appearance CLEAR Urine pH 5.5 Ur Specific [place] 1.015 Urine Protein NEG Urine Glucose (UA) >=1000 H Urine Ketones 15 Urine Blood TRACE Urine Nitrite NEG Ur Leukocyte Esterase NEG Urine RBC 0-2 Urine WBC 0 Ur Squamous Epith Cells NONE Urine Bacteria TRACE Urine Test NEGATIVE Urine Opiates Screen POSITIVE H Urine Fentanyl Screen POSITIVE H Ur Barbiturates Screen Not Detected Ur Phencyclidine Scrn Not Detected Ur Amphetamines Screen Not Detected U Benzodiazepines Scrn Not Detected Urine Cocaine Screen POSITIVE H U Marijuana (THC) Screen Not Detected COVID-19 (BRENDA) COVID-19 Clin Com Blood Type Rho(D) Type Antibody Screen 08/20/21 08/20/21 08/20/21 00:32 01:59 06:35 WBC RBC Hgb Hct MCV MCH MCHC RDW Plt Count MPV Immature Gran % (Auto) Neut % (Auto) Lymph % (Auto) [place] % (Auto) Eos % (Auto) Baso % (Auto) Lymph # (Auto) [place] # (Auto) Eos # (Auto) Baso # (Auto) Abs Immat Gran (auto) Absolute Neuts (auto) Absolute Nucleated RBC Nucleated RBC % (auto) VBG pH VBG pCO2 VBG pO2 VBG HCO3 VBG O2 Saturation VBG Base Excess Sodium Potassium Chloride Carbon Dioxide Anion Gap BUN Creatinine Estim Creat Clear Calc Estimated GFR POC Glucose 41 L* 104 151 H Random Glucose Lactic Acid Lactic Acid F/U @ 2Hr Calcium Phosphorus Magnesium Total Bilirubin AST ALT Alkaline Phosphatase Ammonia Troponin I High Sens Total Protein Albumin Urine Color Urine Appearance Urine pH Ur Specific [place] Urine Protein Urine Glucose (UA) Urine Ketones Urine Blood Urine Nitrite Ur Leukocyte Esterase Urine RBC Urine WBC Ur Squamous Epith Cells Urine Bacteria Urine Test Urine Opiates Screen Urine Fentanyl Screen Ur Barbiturates Screen Ur Phencyclidine Scrn Ur Amphetamines Screen U Benzodiazepines Scrn Urine Cocaine Screen U Marijuana (THC) Screen COVID-19 (BRENDA) COVID-19 Clin Com Blood Type Rho(D) Type Antibody Screen 08/20/21 08/20/21 08/20/21 07:27 08:59 08:59 WBC 13.5 H RBC 3.98 L Hgb 11.0 L Hct 34.4 L MCV 86.4 MCH 27.6 MCHC 32.0 RDW 15.9 Plt Count 280 D MPV 9.4 Immature Gran % (Auto) 0.4 Neut % (Auto) 73.4 H Lymph % (Auto) 19.9 L [place] % (Auto) 5.6 Eos % (Auto) 0.5 Baso % (Auto) 0.2 Lymph # (Auto) 2.7 [place] # (Auto) 0.8 Eos # (Auto) 0.1 Baso # (Auto) 0.0 Abs Immat Gran (auto) 0.05 H Absolute Neuts (auto) 9.9 H Absolute Nucleated RBC 0.000 Nucleated RBC % (auto) 0.0 VBG pH VBG pCO2 VBG pO2 VBG HCO3 VBG O2 Saturation VBG Base Excess Sodium 139 Potassium 3.8 Chloride 99 Carbon Dioxide 29 Anion Gap 15 BUN 20 H Creatinine 1.14 Estim Creat Clear Calc 52.7 Estimated GFR 59 POC Glucose 124 H Random Glucose 121 H Lactic Acid Lactic Acid F/U @ 2Hr Calcium 10.8 H Phosphorus 1.9 L Magnesium 1.5 L Total Bilirubin 0.5 AST 25 ALT 23 Alkaline Phosphatase 110 D Ammonia Troponin I High Sens Total Protein 7.0 D Albumin 3.6 D Urine Color Urine Appearance Urine pH Ur Specific [place] Urine Protein Urine Glucose (UA) Urine Ketones Urine Blood Urine Nitrite Ur Leukocyte Esterase Urine RBC Urine WBC Ur Squamous Epith Cells Urine Bacteria Urine Test Urine Opiates Screen Urine Fentanyl Screen Ur Barbiturates Screen Ur Phencyclidine Scrn Ur Amphetamines Screen U Benzodiazepines Scrn Urine Cocaine Screen U Marijuana (THC) Screen COVID-19 (BRENDA) COVID-19 Clin Com Blood Type Rho(D) Type Antibody Screen 08/20/21 09:04 WBC RBC Hgb Hct MCV MCH MCHC RDW Plt Count MPV Immature Gran % (Auto) Neut % (Auto) Lymph % (Auto) [place] % (Auto) Eos % (Auto) Baso % (Auto) Lymph # (Auto) [place] # (Auto) Eos # (Auto) Baso # (Auto) Abs Immat Gran (auto) Absolute Neuts (auto) Absolute Nucleated RBC Nucleated RBC % (auto) VBG pH 7.48 H VBG pCO2 33 VBG pO2 60 VBG HCO3 25 VBG O2 Saturation 90.0 VBG Base Excess 2.6 Sodium Potassium Chloride Carbon Dioxide Anion Gap BUN Creatinine Estim Creat Clear Calc Estimated GFR POC Glucose Random Glucose Lactic Acid Lactic Acid F/U @ 2Hr Calcium Phosphorus Magnesium Total Bilirubin AST ALT Alkaline Phosphatase Ammonia Troponin I High Sens Total Protein Albumin Urine Color Urine Appearance Urine pH Ur Specific [place] Urine Protein Urine Glucose (UA) Urine Ketones Urine Blood Urine Nitrite Ur Leukocyte Esterase Urine RBC Urine WBC Ur Squamous Epith Cells Urine Bacteria Urine Test Urine Opiates Screen Urine Fentanyl Screen Ur Barbiturates Screen Ur Phencyclidine Scrn Ur Amphetamines Screen U Benzodiazepines Scrn Urine Cocaine Screen U Marijuana (THC) Screen COVID-19 (BRENDA) COVID-19 Clin Com Blood Type Rho(D) Type Antibody Screen Progress Note: A&P Assessment and plan (1) Diabetes mellitus type 1: Status: Acute (2) Substance abuse: Status: Acute Plan Assessment: 25-year-old lady with underlying polysubstance abuse, diabetes mellitus with multiple admissions for DKA, being admitted with DKA and leukocytosis. Plan: Neuro: Acute metabolic encephalopathy likely secondary to DKA, resolved. Cardiac: No acute issues. Prior history of MRSA endocarditis. Pulmonary: No acute issues. Renal: Acute kidney injury, likely secondary to diabetic ketoacidosis, resolved Non oliguric. Continue to monitor renal indices and urine output. Endo: Diabetic ketoacidosis with multiple prior history of similar admissions, resolved. Titrated off insulin drip. Continues on subcu insulin GI: No acute issues. ID: Leukocytosis, improved. Heme/Onc: No acute issues. Psych: No acute issues. Miscellaneous: No acute issues. Prophylaxis: Heparin Diet: Diabetic Quality Stroke Does the patient have a stroke diagnosis?: No VTE Prior VTE?: No VTE Risk Level:: Medical - moderate - high VTE Device Contraindication: Treatment Not Indicated VTE Drug Contraindication: N/A - Med Ordered
[2021-08-20] MEDS: Sodium,Potassium Phosphates POWD.PACK 2 PACKET PO (10:17)
[2021-08-20] MEDS: Magnesium Oxide 400 MG TABLET 800 MG PO (10:18)
[2021-08-20] MEDS: Insulin Glargine,Hum.rec.anlog 100 UNIT/ML 10 ML VIAL 20 UNIT SUBCUT (10:19)
--- NOTE | 2021-08-20 11:34 | MHC.CM.PN ---
Attempted to meet with pt in the ICU: pt states she is sleeping, has spoken to as many people as she is willing to, and requested I leave her alone. CM unable to get any information from her regarding d/c planning. Information obtained from ICU care team and EMR. [place] [facility] [place] stay for endocarditis, perforated bowel and prolonged intubation requiring a trach/peg (both now d/c'd). [place] [facility] pt did not have a d/c plan in place at the time of pt's d/c. Pt does not have a PCP that she follows, is non compliant with insulin and diabetic management, and has a proven hx of leaving treatment facilities AMA. Pt has had capacity evals in the past and was found to be competent. Pt has a good report with Janice Bocanegra from the [facility]. to refer to Janice for assistance with d/c planning needs. CM to follow
[2021-08-20 11:37] LABS: Glucose, Whole Blood 142 mg/dL (60-115)
--- NOTE | 2021-08-20 11:57 | P.CNPS_ITS ---
History of Present Illness Date of Service: 08/20/2021 Chief Complaint: DKA Reason for Consult: consult for capacity Requesting physician: Pham Alexis Discussed with referring provider: Yes Sources of Information: patient interviewed and chart reviewed HPI Narrative: Patient is a 25-year-old single female, with active polysubstance use including heroin, cocaine, amphetamine, as well as PMH of MRSA bacteremia, endocarditis. Patient was discharged from [facility] recently, after a prolonged day requiring chronic ventilator a support status post tracheostomy and reversal. Patient also has DM with poor compliance, multiple admits for DKA. She reports she was discharged from [facility] on TuesdayAugust 17. Patient presented to this ED with altered mental status on 08/19/2021. Lab work revealed leukocytosis, metabolic acidosis, hyperglycemia, RUDI. Tox screen was also positive at that time for opiates, fentanyl, cocaine. Patient turned to 1 side when I approached her for capacity evaluation. When I asked if I could asked several questions, she angrily stated ?no ?. She did become more receptive when manager of disaster recovery entered room, and was willing to answer some questions. Upon interview with myself, she presented as irritable, anxious. Extremely thin, cachetic, disheveled, wearing hospital garb. Much of interaction was within normal limits for mental status exam, however she was uncooperative and irritable throughout. She was alert and oriented x4. She was able to state that she was discharge from [facility] earlier in the week. She was able to state where she was ([facility]), what happened (overdose, DKA), why she is here and treatment. She was also able to state her plans upon discharge, which were nothing . She was able to say she is not actively suicidal. She states that she plans to go home, and then stated ?I have answered as many questions as I am going to write now. You are really pissing me off ?. She did report that she was experiencing opioid withdrawals, asking for methadone. Reports that she had been using a half bundle heroin/ fentanyl daily since discharge from [facility]. Past Psychiatric History: Section 12 once in past, stay was brief 3 days Section 35 in past. Medical Evaluation Reviewed: Yes Review of Systems Review of Systems Unable to obtain a full review of systems due to extreme irritability and uncooperation. Reports active opioid withdrawals, including anxiety, diaphor esis as, bone and joint aches, yawning, GI upset. Yes Unobtainable due to mental status Constitutional: Reports as per HPI and Reports excessive sweating Reports Normal hearing present Reports Normal hearing present Endocrine: Reports excessive sweating [facility] Medical History Anxiety Bacteremia Bacteremia due to methicillin susceptible Staphylococcus aureus (MSSA) Cocaine abuse Diabetes mellitus type 1 Endocarditis Heroin abuse Leukocytosis Polysubstance abuse Staphylococcus aureus bacteremia Substance abuse Family History: Denies Social History: Multiple admits due to severe substance use disorder, DKA. Substance History: Extensive substance use. Includes heroin via IV, most recent use several days ago. Also continued cocaine use, fentanyl use. Has had Section 35 in the past. No history of any abstinence, except when hospitalized. Diagnostics Vital Signs (24Hr): Vital Signs - 24 hr 08/19/21 12:59 08/19/21 14:00 08/19/21 16:12 Temperature 98 F Pulse Rate 150 H 125 H 122 H Respiratory Rate 22 H 22 H 20 Blood Pressure 111/73 113/71 Pulse Oximetry 96 98 08/19/21 18:00 08/19/21 19:00 08/19/21 20:00 Temperature 98.2 F Pulse Rate 111 H 101 H 108 H Respiratory Rate 13 13 17 Blood Pressure 108/50 L 118/56 L 122/58 L Pulse Oximetry 95 92 08/19/21 21:00 08/19/21 22:00 08/19/21 23:00 Temperature Pulse Rate 96 101 H 104 H Respiratory Rate 18 18 17 Blood Pressure 150/84 H 121/62 133/68 Pulse Oximetry 93 95 100 08/19/21 23:53 08/20/21 00:53 08/20/21 02:00 Temperature Pulse Rate 103 H 102 H 102 H Respiratory Rate 34 H 17 19 Blood Pressure 133/68 136/69 142/78 H Pulse Oximetry 97 97 93 08/20/21 02:55 08/20/21 04:00 08/20/21 05:00 Temperature Pulse Rate 110 H 108 H 102 H Respiratory Rate 20 21 H 21 H Blood Pressure 154/78 H 134/60 104/42 L Pulse Oximetry 96 97 94 08/20/21 06:00 08/20/21 06:51 08/20/21 07:55 Temperature Pulse Rate 100 103 H 97 Respiratory Rate 22 H 21 H 22 H Blood Pressure 125/64 125/64 110/38 L Pulse Oximetry 95 08/20/21 08:59 08/20/21 10:00 Temperature Pulse Rate 81 74 Respiratory Rate 14 Blood Pressure 139/74 Pulse Oximetry BMI result Body Mass Index 17.5 Labs Results: 08/20/21 08:59 08/20/21 08:59 Labs: Laboratory Results - last 48 hr 08/19/21 08/19/21 08/19/21 13:04 13:07 14:55 WBC RBC Hgb Hct MCV MCH MCHC RDW Plt Count MPV Immature Gran % (Auto) Neut % (Auto) Lymph % (Auto) [place] % (Auto) Eos % (Auto) Baso % (Auto) Lymph # (Auto) [place] # (Auto) Eos # (Auto) Baso # (Auto) Abs Immat Gran (auto) Absolute Neuts (auto) Absolute Nucleated RBC Nucleated RBC % (auto) VBG pH 7.28 L VBG pCO2 42 VBG pO2 64 VBG HCO3 20 L VBG O2 Saturation 83.0 VBG Base Excess -6.0 Sodium Potassium Chloride Carbon Dioxide Anion Gap BUN Creatinine Estim Creat Clear Calc Estimated GFR POC Glucose > 600 H* > 600 H* Random Glucose Lactic Acid Lactic Acid F/U @ 2Hr Calcium Phosphorus Magnesium Total Bilirubin AST ALT Alkaline Phosphatase Ammonia Troponin I High Sens Total Protein Albumin Urine Color Urine Appearance Urine pH Ur Specific [place] Urine Protein Urine Glucose (UA) Urine Ketones Urine Blood Urine Nitrite Ur Leukocyte Esterase Urine RBC Urine WBC Ur Squamous Epith Cells Urine Bacteria Urine Test Urine Opiates Screen Urine Fentanyl Screen Ur Barbiturates Screen Ur Phencyclidine Scrn Ur Amphetamines Screen U Benzodiazepines Scrn Urine Cocaine Screen U Marijuana (THC) Screen COVID-19 (BRENDA) COVID-19 Clin Com Blood Type Rho(D) Type Antibody Screen 08/19/21 08/19/21 08/19/21 14:57 14:57 14:57 WBC 20.0 H RBC 4.32 D Hgb 11.9 L D Hct 38.3 MCV 88.7 MCH 27.5 MCHC 31.1 RDW 15.8 Plt Count 411 H D MPV 10.2 Immature Gran % (Auto) 0.5 H Neut % (Auto) 88.5 H Lymph % (Auto) 6.6 L [place] % (Auto) 4.3 Eos % (Auto) 0.0 Baso % (Auto) 0.1 Lymph # (Auto) 1.3 [place] # (Auto) 0.9 Eos # (Auto) 0.0 Baso # (Auto) 0.0 Abs Immat Gran (auto) 0.09 H Absolute Neuts (auto) 17.7 H Absolute Nucleated RBC 0.000 Nucleated RBC % (auto) 0.0 VBG pH VBG pCO2 VBG pO2 VBG HCO3 VBG O2 Saturation VBG Base Excess Sodium 139 Potassium 4.3 D Chloride 95 L Carbon Dioxide 19 L Anion Gap 29 H BUN 37 H Creatinine 1.99 H Estim Creat Clear Calc 22.0 Estimated GFR 31 POC Glucose Random Glucose 940 H* Lactic Acid Lactic Acid F/U @ 2Hr Calcium 12.1 H D Phosphorus 2.7 Magnesium Total Bilirubin AST ALT Alkaline Phosphatase Ammonia Troponin I High Sens 6.7 Total Protein Albumin 4.9 D Urine Color Urine Appearance Urine pH Ur Specific [place] Urine Protein Urine Glucose (UA) Urine Ketones Urine Blood Urine Nitrite Ur Leukocyte Esterase Urine RBC Urine WBC Ur Squamous Epith Cells Urine Bacteria Urine Test Urine Opiates Screen Urine Fentanyl Screen Ur Barbiturates Screen Ur Phencyclidine Scrn Ur Amphetamines Screen U Benzodiazepines Scrn Urine Cocaine Screen U Marijuana (THC) Screen COVID-19 (BRENDA) COVID-19 Clin Com Blood Type Rho(D) Type Antibody Screen 08/19/21 08/19/21 08/19/21 14:57 14:57 14:57 WBC RBC Hgb Hct MCV MCH MCHC RDW Plt Count MPV Immature Gran % (Auto) Neut % (Auto) Lymph % (Auto) [place] % (Auto) Eos % (Auto) Baso % (Auto) Lymph # (Auto) [place] # (Auto) Eos # (Auto) Baso # (Auto) Abs Immat Gran (auto) Absolute Neuts (auto) Absolute Nucleated RBC Nucleated RBC % (auto) VBG pH VBG pCO2 VBG pO2 VBG HCO3 VBG O2 Saturation VBG Base Excess Sodium Potassium Chloride Carbon Dioxide Anion Gap BUN Creatinine Estim Creat Clear Calc Estimated GFR POC Glucose Random Glucose Lactic Acid 3.5 H* Lactic Acid F/U @ 2Hr Calcium Phosphorus Magnesium Total Bilirubin AST ALT Alkaline Phosphatase Ammonia 25 Troponin I High Sens Total Protein Albumin Urine Color Urine Appearance Urine pH Ur Specific [place] Urine Protein Urine Glucose (UA) Urine Ketones Urine Blood Urine Nitrite Ur Leukocyte Esterase Urine RBC Urine WBC Ur Squamous Epith Cells Urine Bacteria Urine Test Urine Opiates Screen Urine Fentanyl Screen Ur Barbiturates Screen Ur Phencyclidine Scrn Ur Amphetamines Screen U Benzodiazepines Scrn Urine Cocaine Screen U Marijuana (THC) Screen COVID-19 (BRENDA) COVID-19 Clin Com Blood Type Cancelled Rho(D) Type Cancelled Antibody Screen Cancelled 08/19/21 08/19/21 08/19/21 16:34 16:51 18:19 WBC RBC Hgb Hct MCV MCH MCHC RDW Plt Count MPV Immature Gran % (Auto) Neut % (Auto) Lymph % (Auto) [place] % (Auto) Eos % (Auto) Baso % (Auto) Lymph # (Auto) [place] # (Auto) Eos # (Auto) Baso # (Auto) Abs Immat Gran (auto) Absolute Neuts (auto) Absolute Nucleated RBC Nucleated RBC % (auto) VBG pH VBG pCO2 VBG pO2 VBG HCO3 VBG O2 Saturation VBG Base Excess Sodium Potassium Chloride Carbon Dioxide Anion Gap BUN Creatinine Estim Creat Clear Calc Estimated GFR POC Glucose 366 H* 200 H Random Glucose Lactic Acid Lactic Acid F/U @ 2Hr Calcium Phosphorus Magnesium Total Bilirubin AST ALT Alkaline Phosphatase Ammonia Troponin I High Sens Total Protein Albumin Urine Color Urine Appearance Urine pH Ur Specific [place] Urine Protein Urine Glucose (UA) Urine Ketones Urine Blood Urine Nitrite Ur Leukocyte Esterase Urine RBC Urine WBC Ur Squamous Epith Cells Urine Bacteria Urine Test Urine Opiates Screen Urine Fentanyl Screen Ur Barbiturates Screen Ur Phencyclidine Scrn Ur Amphetamines Screen U Benzodiazepines Scrn Urine Cocaine Screen U Marijuana (THC) Screen COVID-19 (BRENDA) Negative COVID-19 Clin Com See Note Blood Type Rho(D) Type Antibody Screen 08/19/21 08/19/21 08/19/21 18:27 18:27 20:22 WBC RBC Hgb Hct MCV MCH MCHC RDW Plt Count MPV Immature Gran % (Auto) Neut % (Auto) Lymph % (Auto) [place] % (Auto) Eos % (Auto) Baso % (Auto) Lymph # (Auto) [place] # (Auto) Eos # (Auto) Baso # (Auto) Abs Immat Gran (auto) Absolute Neuts (auto) Absolute Nucleated RBC Nucleated RBC % (auto) VBG pH VBG pCO2 VBG pO2 VBG HCO3 VBG O2 Saturation VBG Base Excess Sodium 142 Potassium 3.8 Chloride 102 Carbon Dioxide 25 Anion Gap 19 BUN 31 H Creatinine 1.03 Estim Creat Clear Calc 42.5 Estimated GFR > 60 POC Glucose 175 H Random Glucose 189 H D Lactic Acid Lactic Acid F/U @ 2Hr Cancelled Calcium 10.9 H D Phosphorus Magnesium Total Bilirubin AST ALT Alkaline Phosphatase Ammonia Troponin I High Sens Total Protein Albumin Urine Color Urine Appearance Urine pH Ur Specific [place] Urine Protein Urine Glucose (UA) Urine Ketones Urine Blood Urine Nitrite Ur Leukocyte Esterase Urine RBC Urine WBC Ur Squamous Epith Cells Urine Bacteria Urine Test Urine Opiates Screen Urine Fentanyl Screen Ur Barbiturates Screen Ur Phencyclidine Scrn Ur Amphetamines Screen U Benzodiazepines Scrn Urine Cocaine Screen U Marijuana (THC) Screen COVID-19 (BRENDA) COVID-19 Clin Com Blood Type Rho(D) Type Antibody Screen 08/19/21 08/19/21 08/19/21 21:40 21:40 21:40 WBC RBC Hgb Hct MCV MCH MCHC RDW Plt Count MPV Immature Gran % (Auto) Neut % (Auto) Lymph % (Auto) [place] % (Auto) Eos % (Auto) Baso % (Auto) Lymph # (Auto) [place] # (Auto) Eos # (Auto) Baso # (Auto) Abs Immat Gran (auto) Absolute Neuts (auto) Absolute Nucleated RBC Nucleated RBC % (auto) VBG pH VBG pCO2 VBG pO2 VBG HCO3 VBG O2 Saturation VBG Base Excess Sodium Potassium Chloride Carbon Dioxide Anion Gap BUN Creatinine Estim Creat Clear Calc Estimated GFR POC Glucose Random Glucose Lactic Acid Lactic Acid F/U @ 2Hr Calcium Phosphorus Magnesium Total Bilirubin AST ALT Alkaline Phosphatase Ammonia Troponin I High Sens Total Protein Albumin Urine Color YELLOW Urine Appearance CLEAR Urine pH 5.5 Ur Specific [place] 1.015 Urine Protein NEG Urine Glucose (UA) >=1000 H Urine Ketones 15 Urine Blood TRACE Urine Nitrite NEG Ur Leukocyte Esterase NEG Urine RBC 0-2 Urine WBC 0 Ur Squamous Epith Cells NONE Urine Bacteria TRACE Urine Test NEGATIVE Urine Opiates Screen POSITIVE H Urine Fentanyl Screen POSITIVE H Ur Barbiturates Screen Not Detected Ur Phencyclidine Scrn Not Detected Ur Amphetamines Screen Not Detected U Benzodiazepines Scrn Not Detected Urine Cocaine Screen POSITIVE H U Marijuana (THC) Screen Not Detected COVID-19 (BRENDA) COVID-19 Clin Com Blood Type Rho(D) Type Antibody Screen 08/20/21 08/20/21 08/20/21 00:32 01:59 06:35 WBC RBC Hgb Hct MCV MCH MCHC RDW Plt Count MPV Immature Gran % (Auto) Neut % (Auto) Lymph % (Auto) [place] % (Auto) Eos % (Auto) Baso % (Auto) Lymph # (Auto) [place] # (Auto) Eos # (Auto) Baso # (Auto) Abs Immat Gran (auto) Absolute Neuts (auto) Absolute Nucleated RBC Nucleated RBC % (auto) VBG pH VBG pCO2 VBG pO2 VBG HCO3 VBG O2 Saturation VBG Base Excess Sodium Potassium Chloride Carbon Dioxide Anion Gap BUN Creatinine Estim Creat Clear Calc Estimated GFR POC Glucose 41 L* 104 151 H Random Glucose Lactic Acid Lactic Acid F/U @ 2Hr Calcium Phosphorus Magnesium Total Bilirubin AST ALT Alkaline Phosphatase Ammonia Troponin I High Sens Total Protein Albumin Urine Color Urine Appearance Urine pH Ur Specific [place] Urine Protein Urine Glucose (UA) Urine Ketones Urine Blood Urine Nitrite Ur Leukocyte Esterase Urine RBC Urine WBC Ur Squamous Epith Cells Urine Bacteria Urine Test Urine Opiates Screen Urine Fentanyl Screen Ur Barbiturates Screen Ur Phencyclidine Scrn Ur Amphetamines Screen U Benzodiazepines Scrn Urine Cocaine Screen U Marijuana (THC) Screen COVID-19 (BRENDA) COVID-19 Clin Com Blood Type Rho(D) Type Antibody Screen 08/20/21 08/20/21 08/20/21 07:27 08:59 08:59 WBC 13.5 H RBC 3.98 L Hgb 11.0 L Hct 34.4 L MCV 86.4 MCH 27.6 MCHC 32.0 RDW 15.9 Plt Count 280 D MPV 9.4 Immature Gran % (Auto) 0.4 Neut % (Auto) 73.4 H Lymph % (Auto) 19.9 L [place] % (Auto) 5.6 Eos % (Auto) 0.5 Baso % (Auto) 0.2 Lymph # (Auto) 2.7 [place] # (Auto) 0.8 Eos # (Auto) 0.1 Baso # (Auto) 0.0 Abs Immat Gran (auto) 0.05 H Absolute Neuts (auto) 9.9 H Absolute Nucleated RBC 0.000 Nucleated RBC % (auto) 0.0 VBG pH VBG pCO2 VBG pO2 VBG HCO3 VBG O2 Saturation VBG Base Excess Sodium 139 Potassium 3.8 Chloride 99 Carbon Dioxide 29 Anion Gap 15 BUN 20 H Creatinine 1.14 Estim Creat Clear Calc 52.7 Estimated GFR 59 POC Glucose 124 H Random Glucose 121 H Lactic Acid Lactic Acid F/U @ 2Hr Calcium 10.8 H Phosphorus 1.9 L Magnesium 1.5 L Total Bilirubin 0.5 AST 25 ALT 23 Alkaline Phosphatase 110 D Ammonia Troponin I High Sens Total Protein 7.0 D Albumin 3.6 D Urine Color Urine Appearance Urine pH Ur Specific [place] Urine Protein Urine Glucose (UA) Urine Ketones Urine Blood Urine Nitrite Ur Leukocyte Esterase Urine RBC Urine WBC Ur Squamous Epith Cells Urine Bacteria Urine Test Urine Opiates Screen Urine Fentanyl Screen Ur Barbiturates Screen Ur Phencyclidine Scrn Ur Amphetamines Screen U Benzodiazepines Scrn Urine Cocaine Screen U Marijuana (THC) Screen COVID-19 (BRENDA) COVID-19 Clin Com Blood Type Rho(D) Type Antibody Screen 08/20/21 08/20/21 09:04 11:33 WBC RBC Hgb Hct MCV MCH MCHC RDW Plt Count MPV Immature Gran % (Auto) Neut % (Auto) Lymph % (Auto) [place] % (Auto) Eos % (Auto) Baso % (Auto) Lymph # (Auto) [place] # (Auto) Eos # (Auto) Baso # (Auto) Abs Immat Gran (auto) Absolute Neuts (auto) Absolute Nucleated RBC Nucleated RBC % (auto) VBG pH 7.48 H VBG pCO2 33 VBG pO2 60 VBG HCO3 25 VBG O2 Saturation 90.0 VBG Base Excess 2.6 Sodium Potassium Chloride Carbon Dioxide Anion Gap BUN Creatinine Estim Creat Clear Calc Estimated GFR POC Glucose 142 H Random Glucose Lactic Acid Lactic Acid F/U @ 2Hr Calcium Phosphorus Magnesium Total Bilirubin AST ALT Alkaline Phosphatase Ammonia Troponin I High Sens Total Protein Albumin Urine Color Urine Appearance Urine pH Ur Specific [place] Urine Protein Urine Glucose (UA) Urine Ketones Urine Blood Urine Nitrite Ur Leukocyte Esterase Urine RBC Urine WBC Ur Squamous Epith Cells Urine Bacteria Urine Test Urine Opiates Screen Urine Fentanyl Screen Ur Barbiturates Screen Ur Phencyclidine Scrn Ur Amphetamines Screen U Benzodiazepines Scrn Urine Cocaine Screen U Marijuana (THC) Screen COVID-19 (BRENDA) COVID-19 Clin Com Blood Type Rho(D) Type Antibody Screen Imaging Radiology Impressions: ITS Impressions Chest X-Ray 08/19/21 16:00 IMPRESSION: Increased right lower lung opacification with probable small right pleural effusion suggesting an infectious/inflammatory process increased from the previous study. Mental Status Exam Mental Status Exam Narrative: A thin, frail, Cachetic appearing female, appears older than stated age. Unkempt, disheveled, wearing hospital garb. Refused to describe mood. Ambulat ion not observed. Opioid withdrawal symptoms of served include irritability, diaphoresis. Patient Appearance: Disheveled and Unkempt Patient Orientation: Person, Place, Time and Situation Level of Consciousness: Awake and Alert Patient Behavior: Guarded, Belligerent and Uncooperative Affect Description: Blunted and Angry (several irritable, angry outburts during encounter) Patient Cognition Impaired: No Ability to Follow Directions: Good Speech Pattern: Clear and Coherent Memory Description: Intact Hallucinations: None (None reported, did not appear to be responding to any type of internal stimuli.) Delusions: Not Present Thought Process: Intact Thought Content: positive for Intact and positive for Suicidal Ideation (Appears to have passive SI, as states she know she will if she continues current behavior, plans to any way.) Judgement: Fair Medications Medications Current Medications Heparin Sodium (Porcine) (Heparin Sodium,Porcine 5,000 Unit/Ml Vial) 5,000 unit SUBCUT Q8H [facility] Last Admin: 08/20/21 10:19 Dose: 5,000 unit Documented by: Insulin Glargine (Insulin Glargine,Hum.Rec.Anlog 100 Unit/Ml 10 Ml Vial) 20 unit SUBCUT DAILY [facility] Insulin Human Lispro (Insulin Lispro 100 Unit/Ml 3 Ml Vial) 0 unit SUBCUT QIDACHS [facility]; Protocol Last Admin: 08/20/21 11:35 Dose: Not Given Documented by: Methadone HCl (Methadone Hcl 10 Mg Tablet) 20 mg PO ONCE ONE Stop: 08/20/21 11:49 Potassium Phos/Sodium Phos (Sodium,Potassium Phosphates Powd.Pack) 2 packet PO BID [facility] Stop: 08/21/21 09:01 Last Admin: 08/20/21 10:17 Dose: 2 packet Documented by: Allergies Allergies Allergy/AdvReac Type Severity Reaction Status Date / Time No Known Allergies Allergy Verified 05/06/21 05:11 Assessment & Plan Assessment & Plan (1) Encounter for assessment of healthcare decision-making capacity: Status: Acute Code(s): Z02.79 - Encounter for issue of other medical certificate Assessment and Plan: Patient was angry and irritable at times, although mostly blunted, refusing to answer questions and look at me. At 1 point she shouted that she was not going to answer any further questions, and told me ?you are really pay see me off ?. She then reported that she was experiencing opioid withdrawals, and asked for medication. During interview she was able to state that she is not actively suicidal. She appears to have some p assive SI however, as she reports that she has an understanding that if she continues with current behaviors upon discharge, results will ultimately be fatal. Patient appears to have capacity at this time. She is alert and oriented x4. She denies any active SI at this time. She has been refusing psych or substance use treatment during multiple admissions, and does not engage in any medical c are that is offered to her when she is in the outpatient setting. She reports that she wants to go home once treatment is completed here. She was able to appreciate the risks and benefits of not continuing to treat her significant medical issues, and expresses apathy regarding the outcome. She was able to verbalize an understanding of choices for treatment, and that her choices of continued drug use and noncompliance with diabetes management as well as other health concerns may result in . She also recently was discharged absent up up prolong stay in ICU at [facility], and promptly began and using substances upon discharge. Within several days she has already experienced an overdose with opioids as well as DKA due to port diabetes management. She states that when she goes home she plans to continue her current lifestyle, with no changes. Plan Patient appears to have capacity for healthcare decision making at this time. However, due to apathy and no desire for treatment after recent overdose and serious DKA, would recommend a care team eval once medically cleared. 1. Methadone 20 mg once ordered, for current opioid withdrawals. These recommendations were discussed with provider Pham Alexis. Thank you I spent __45____ minutes with the patient and/or on the patient floor today, gre ater than?50% of which was spent counseling/coordinating care.
[2021-08-20] MEDS: methADONE HCl 20 MG/2 ML ORAL.CONC PO (12:04)
--- NOTE | 2021-08-20 13:52 | MHC.RECOVRN ---
Met with pt in 261 to discuss substance use. Pt laying in bed, sleeping but easily awoken. Pt had completed tx at [facility] and discharged on 08/17. Pt reports after dc went to a male's house, not the same male pt had been staying with prior to [facility] admission. Pt reports using heroin, 5 bags daily and reports withdrawal symptoms. Pt states I feel dope sick. Having hot/cold flashes, body aches. Discussed with Yennifer Cunningham NP, 20 mg methadone to be ordered. Pt plans to complete necessary tx while at [facility]. Will continue to follow and further discuss dc plans.
[2021-08-20] MEDS: Ondansetron ODT 4 MG TAB.RAPDIS TRANSLINGU ×2 (14:51→21:18)
--- NOTE | 2021-08-20 14:53 | PC.NURSE ---
Addendum entered by Claudia Seals RN 08/20/21 17:03: PATIENT VOMITTED AGAIN. MD NOTIFIED. IV ELECTROLYTE REPLACEMENTS ORDERED AND STARTED. SHORTLY AFTER IV RIPPED OUT BY PATIENT. FLUIDS PAUSED. MD NOTIFIED. RN TO RN REPORT GIVEN. Original Note: PATIENT PROJECTILE VOMITTED ON THE FLOOR. MD NOTIFIED AND MEDICATIONS REQUESTED. PRN MEDICATION ADMINISTERED, SEE EMAR. EFFECTS PENDING. IV PLACED AT MDS REQUEST BY NURSING EXHAUST AND MUFFLER REPAIRER.
[2021-08-20] MEDS: methADONE HCl 20 MG/2 ML ORAL.CONC 10 MG PO (16:28)
[2021-08-20 16:35] LABS: Glucose, Whole Blood 84 mg/dL (60-115)
[2021-08-20] MEDS: Potassium Phosphate/NS 15 MMOL/250 ML PLAST..BAG 62.5 MMOL IV (16:42)
[2021-08-20] MEDS: Sodium,Potassium Phosphates POWD.PACK 1 PACKET PO (17:29)
--- NOTE | 2021-08-20 17:31 | PC.NURSE ---
pt arrived to medical surgical unit from ICU with no iv access , pt refusing this rn to attempt to get new one in . pt refusing PO meds , pt c/o nausea . VSS. pt requesting to sleep.
[2021-08-20 21:11] LABS: Glucose, Whole Blood 112 mg/dL (60-115)
[2021-08-21] VITALS: BP 124/76; PULSE 90; RESP 18; TEMP 36.6; O2SAT 95
--- NOTE | 2021-08-21 01:48 | PC.NURSE ---
VMT reports that pt is sticking her fingers down her throat and making herself vomit, when I asked pt about it she denies doing this.
--- NOTE | 2021-08-21 01:54 | PC.NURSE ---
pt refusing to wear manager cardiac. Dr. Ramirez made aware and d/c'd manager cardiac.
[2021-08-21 07:34] LABS: Glucose, Whole Blood 325 mg/dL (60-115)
[2021-08-21 07:36] VITALS: BP 166/89; PULSE 55; RESP 20; TEMP 36.4; O2SAT 99
[2021-08-21] MEDS: Insulin Glargine,Hum.rec.anlog 100 UNIT/ML 10 ML VIAL 20 UNIT SUBCUT (07:46)
[2021-08-21] MEDS: Insulin Lispro 100 UNIT/ML 3 ML VIAL SUBCUT ×2 (07:46→16:28)
[2021-08-21] MEDS: Ondansetron ODT 4 MG TAB.RAPDIS TRANSLINGU ×2 (07:57→17:40)
[2021-08-21] MEDS: oxyCODONE HCl Immed Release 5 MG TABLET 10 MG PO ×2 (10:45→16:28)
[2021-08-21 10:52] LABS: Basophils Percent Auto 0.4 % (0-2); Eosinophils Percent Auto 0.2 % (0-4); Hematocrit 33.7 % (37.0-47.0); Imm Gran Abs Auto 0.07 X10*3/uL (0.00-0.03); Imm Gran Pct Auto 0.7 % (0.0-0.4); Lymphocytes Absolute Auto 1.9 X10*3/uL (1.2-4.9); Lymphocytes Percent Auto 17.9 % (20-40); MANUAL DIFF FLAG SCAN; Mean Corpuscular HGB Conc 32.6 g/dl (31.0-35.0); Mean Corpuscular Hemoglobin 28.3 pg (27.0-33.0); Mean Corpuscular Volume 86.6 fL (80.0-98.0); Mean Platelet Volume 10.3 fL (9.4-12.3); Monocytes Absolute Auto 0.8 X10*3/uL (0.1-1.2); Monocytes Percent Auto 7.5 % (2-11); Neutrophils Absolute Auto 7.8 x10*3/uL (2.0-8.3); Neutrophils Percent Auto 73.3 % (45-73); PLT CLUMP 1; Red Blood Count 3.89 X10*6/uL (4.20-5.50); Red Cell Distribution Width 15.5 % (11.0-16.0); SCAN SMEAR FLAG 1
[2021-08-21 10:54] LABS: White Blood Count 10.6 X10*3/uL (4.8-10.8)
[2021-08-21 10:55] LABS: Platelet Count 212 X10*3/uL (160-400)
[2021-08-21 11:09] VITALS: BP 131/88; PULSE 68; RESP 18; TEMP 36.2; O2SAT 98
[2021-08-21 11:10] LABS: SLIDE REVIEW VERIFIED
[2021-08-21 11:15] LABS: Anion Gap 19 (12-20); Blood Urea Nitrogen 13 mg/dL (9-16); Calcium 10.3 mg/dL (8.4-10.2); Carbon Dioxide 31 mmol/L (22-29); Chloride 90 mmol/L (96-108); Creatinine Clr Calc Pharmacy 84.6; Estimated Glomerular Filt Rate > 60; Glucose Random 134 mg/dL (60-115); Magnesium 1.5 mg/dL (1.6-2.6); Phosphorus 2.2 mg/dL (2.7-4.5); Potassium 4.7 mmol/L (3.3-5.1); Sodium 135 mmol/L (135-145)
[2021-08-21] MEDS: Sodium,Potassium Phosphates POWD.PACK 1 PACKET PO ×2 (12:01→16:28)
[2021-08-21] MEDS: Magnesium Oxide 400 MG TABLET PO ×2 (12:02→16:28)
[2021-08-21 12:27] LABS: Glucose, Whole Blood 124 mg/dL (60-115)
[2021-08-21 12:29] LABS: Glucose, Whole Blood 158 mg/dL (60-115)
[2021-08-21 13:06] VITALS: BMI 17.5
--- NOTE | 2021-08-21 13:15 | MHC.CLN ---
RE: CONSULT PT IS MODERATELY MALNOURISHED. PT IS FAMILIAR TO FACILITY WITH MULTIPLE ADMISSION FOR DKA PT IS MODERATELY DEPLETION OF SUBCUTANEOUS FAT AND MUSCLE MASS, BMI 17.5 WITH POOR PO INTAKE R/T POLYSUBSTANCE ABUSE, HOMELESSNESS AND LIMITED ACCESS TO FOOD ALONG WITH NONCOMPLIANCE WITH DIABETIC DIET AND MEDICATIONS. DIET RX; 2200DM-APPROPRIATE PT DOES NOT FOLLOW DIABETIC DIET OR TAKE DIABETIC MEDICATIONS IN THE COMMUNITY. PT DISLIKES GLUCERNA AND REQUESTED VANILLA ENSURE. WILL CHANGE SUPP TO ENSURE ENLIVE BID (700 KCAL, 40 G PROTEIN). ADVISED PATIENT THAT GLUCERNA WAS A BETTER CHOICE FOR DIABETIC. PATIENT CONTINUES TO CHOSE NOT TO FOLLOW DIABETIC DIET DIET MONITOR PO INTAKE CLOSELY SEE ALSO FULL CLINICAL NUTRITION ASSESSMENT
[2021-08-21 14:50] LABS: C Reactive Protein 0.82 mg/dL (< or = 0.50)
--- NOTE | 2021-08-21 14:52 | MHC.RECOVRN ---
Met with pt throughout the day to provide support and discuss substance use/plan for recovery. Pt reports using heroin and cocaine, states heroin is more difficult to abstain from. Pts last use of substances was [employer]. Reports withdrawal symptoms including upset stomach and body aches. Pt declines methadone or Suboxone. Pt received methadone yesterday, however, states It makes me sick. Pt c/o nausea and relief with self induced vomiting. Pt had received Zofran and reports that it was semi helpful. Pt reports back pain and requests pain medication, this was discussed with provider and oxycodone 10 mg PO was ordered. Pt reports relief for a few hours with the pain medication. Pt also reports pain in left foot near an injection site, denies other areas of possible infection. As far as further treatment, pt is interested in a voluntary psych admission vs CSS/NIALL tx. Pt reports hx of Zoloft, pt reports it was not helpful. Pt denies current SI/HI/AH/VH. Pt reports I just want to get better. I'm so sick. At times pt does report desire to leave the hospital, however, is easily encouraged to stay. Pt would like to complete treatment for medical needs. Pt asked t/w to inform her mother, September ([phone]), that she is admitted to the hospital. Pt does not want NIALL discussed with mother. T/w notified mom with pt. Discussed case with provider, Xiomara Louise APRN, RN, as well as CARE Team and CM.
[2021-08-21 15:09] VITALS: BP 126/64; PULSE 65; RESP 16; TEMP 37; O2SAT 98
--- NOTE | 2021-08-21 15:24 | HO.PM.IMPN ---
Subjective Subjective Date of Service: 08/21/21 Interval History: seen and examine this morning follow up for DKA patient noticed to be self-inducing vomiting yesterday. no further episodes today previously declining lab draws and medications, has been compliant so far today Review of Systems Review of Systems: Yes all other systems are reviewed and are negative Constitutional Constitutional: Denies chills and Denies fever(s) Cardiovascular Cardiovascular: Denies chest pain, Denies palpitations and Denies dyspnea Respiratory Respiratory: Denies dyspnea Gastrointestinal Gastrointestinal: Denies abdominal pain Endocrine Endocrine: Denies palpitations Physical Exam Vital Signs: Vital Signs: Last Vital Signs Temp 98.6 F 08/21/21 15:09 Pulse 65 08/21/21 15:09 Resp 16 08/21/21 15:09 BP 126/64 08/21/21 15:09 Pulse Ox 98 08/21/21 15:09 BMI result Body Mass Index 17.5 Const: General: cooperative, comfortable, alert and awake Nutritional Appearance: thin Orientation/consciousness: patient oriented x3 Eyes: Pupils: Equal, round and reactive pupils present EOM: EOMs intact bilaterally Resp: Effort & Inspection: normal respiratory effort and able to speak in complete sentences Cardio: Rate: regular rate GI: Inspection: No distended Palpation (GI): Soft to palpation and nontender Skin: Other: multiple skin lesions b/l legs Neuro: General: patient oriented x3 and moves all extremities Cranial nerves: Yes Equal, round and reactive pupils present Objective Data Active Medications Heparin Sodium (Porcine) (Heparin Sodium,Porcine 5,000 Unit/Ml Vial) 5,000 unit SUBCUT Q8H [facility] Last Admin: 08/21/21 07:52 Dose: Not Given Documented by: SATYA Non-Admin Reason: Patient Refused Insulin Glargine (Insulin Glargine,Hum.Rec.Anlog 100 Unit/Ml 10 Ml Vial) 20 unit SUBCUT DAILY [facility] Last Admin: 08/21/21 07:46 Dose: 20 unit Documented by: SATYA Insulin Human Lispro (Insulin Lispro 100 Unit/Ml 3 Ml Vial) 0 unit SUBCUT QIDACHS [facility]; Protocol Last Admin: 08/21/21 12:32 Dose: Not Given Documented by: SATYA Non-Admin Reason: No Insulin Coverage Comments: POC 124 Magnesium Oxide (Magnesium Oxide 400 Mg Tablet) [facility] Last Admin: 08/21/21 12:02 Dose: 400 mg Documented by: SATYA Ondansetron HCl (Ondansetron Odt 4 Mg Tab.Rapdis) 4 mg TRANSLINGU Q6H PRN PRN Reason: Nausea Last Admin: 08/21/21 07:57 Dose: 4 mg Documented by: SATYA Labs CBC & Chem 7: 08/21/21 10:41 08/21/21 10:41 Labs: Laboratory Results - last 24 hr 08/20/21 08/20/21 08/21/21 16:31 21:08 07:29 MCV MCH MCHC RDW Plt Count MPV Immature Gran % (Auto) Neut % (Auto) Lymph % (Auto) [place] % (Auto) Eos % (Auto) Baso % (Auto) Lymph # (Auto) [place] # (Auto) Eos # (Auto) Baso # (Auto) Abs Immat Gran (auto) Absolute Neuts (auto) Absolute Nucleated RBC Nucleated RBC % (auto) Smear Tech's Comments Anion Gap Estim Creat Clear Calc Estimated GFR POC Glucose 84 112 325 H Random Glucose Calcium Phosphorus Magnesium C-Reactive Protein 08/21/21 08/21/21 08/21/21 10:41 10:41 11:08 MCV 86.6 MCH 28.3 MCHC 32.6 RDW 15.5 Plt Count 212 MPV 10.3 Immature Gran % (Auto) 0.7 H Neut % (Auto) 73.3 H Lymph % (Auto) 17.9 L [place] % (Auto) 7.5 Eos % (Auto) 0.2 Baso % (Auto) 0.4 Lymph # (Auto) 1.9 [place] # (Auto) 0.8 Eos # (Auto) 0.0 Baso # (Auto) 0.0 Abs Immat Gran (auto) 0.07 H Absolute Neuts (auto) 7.8 Absolute Nucleated RBC 0.000 Nucleated RBC % (auto) 0.0 Smear Tech's Comments VERIFIED Anion Gap 19 Estim Creat Clear Calc 84.6 Estimated GFR > 60 POC Glucose 124 H Random Glucose 134 H Calcium 10.3 H Phosphorus 2.2 L Magnesium 1.5 L C-Reactive Protein 0.82 H 08/21/21 12:26 MCV MCH MCHC RDW Plt Count MPV Immature Gran % (Auto) Neut % (Auto) Lymph % (Auto) [place] % (Auto) Eos % (Auto) Baso % (Auto) Lymph # (Auto) [place] # (Auto) Eos # (Auto) Baso # (Auto) Abs Immat Gran (auto) Absolute Neuts (auto) Absolute Nucleated RBC Nucleated RBC % (auto) Smear Tech's Comments Anion Gap Estim Creat Clear Calc Estimated GFR POC Glucose 158 H Random Glucose Calcium Phosphorus Magnesium C-Reactive Protein Microbiology Microbiology Results: Microbiology 08/19/21 14:56 Blood Culture - Preliminary Blood - Venous No growth after 24 hours. 08/19/21 14:56 Blood Culture - Preliminary Blood - Venous No growth after 24 hours. Assessment and Plan (1) DKA (diabetic ketoacidosis): Status: Acute Plan This is a 25 year old female with complicated past medical history including IVDU, DM, recent prolonged hospitalization at [facility] [place] for IE, meningitis, septic emboli, perforated bowel among others who was discharged on 08/17 and presented to [facility] ED 08/19 and was subsequently admitted to the ICU for altered mental status and DKA requiring insulin drip, downgraded to the medical floor on August 20. DM s/p insulin drip in ICU resumed on subQ Lantus continue SSI, POCs, ada diet Hypophosphatemia/hypomagnesemia will continue to replace orally follow daily RUDI r/t DKA resolved metabolic encephalopathy r/t DKA resolved Back pain CT showing chronic changes r/t previous osteo/septic arthritis and iliac fracture completed course of abx at [facility] [place] pt afebrile, no leukocytosis, crp low, blood cultures negative to date d/w ID, no need for further abx -pain management, wean narcotics as soon as able polysubstance use disorder addiction medicine following pt does not want treatment with methadone as it causes her nausea dispo: care team evaluation pending. dvt ppx - heparin attending - dr. khris Samaniego Stroke Does the patient have a stroke diagnosis?: No VTE Prior VTE?: No VTE Risk Level:: Medical - moderate - high VTE Device Contraindication: Treatment Not Indicated VTE Drug Contraindication: N/A - Med Ordered
--- NOTE | 2021-08-21 15:32 | HO.ADDICTCON ---
History of Present Illness Date of Service: 08/21/2021 Chief Complaint: DKA Reason for Consult: NIALL Requesting physician: Pham Alexis HPI Narrative: Patient is a 25 year old female very well known to this telegraphic typewriter repairer via previous admissions. Type 1 DM, currently medically admitted with DKA. Patient had recently been discharged from [facility] after lengthy medical admission (>1month) and reports using 5 bags of heroin leading to OD and presenting to ED Given methadone in ED and once on medical floor. Patient declining further methadone administration, states it makes her feel more nauseous. PO Oxycodone given with good effect. Patient awake, alert, pleasant and engaged in interview. Reporting back pain--left for CAT scan of back at end of interview. No social supports. Lengthy history with NIALL, DM related admissions, as well as NIALL related complications. Past Psychiatric History: Section 12 once in past, stay was brief 3 days Section 35 in past. Review of Systems Constitutional: Reports as per HPI, Reports body ache(s), Reports chills, Reports malaise and Reports weakness Reports weakness Diagnostics Vital Signs (24Hr): Vital Signs - 24 hr 08/20/21 17:17 08/20/21 17:20 08/20/21 19:26 Temperature 97.6 F 97.8 F 97.9 F Pulse Rate 61 72 Respiratory Rate 17 17 Blood Pressure 117/79 129/81 Pulse Oximetry 95 98 08/21/21 00:00 08/21/21 07:36 08/21/21 11:09 Temperature 97.9 F 97.6 F 97.1 F Pulse Rate 90 55 68 Respiratory Rate 18 20 18 Blood Pressure 124/76 166/89 H 131/88 Pulse Oximetry 95 99 98 08/21/21 15:09 Temperature 98.6 F Pulse Rate 65 Respiratory Rate 16 Blood Pressure 126/64 Pulse Oximetry 98 BMI result Body Mass Index 17.5 Labs Results: 08/21/21 10:41 08/21/21 10:41 Labs: Laboratory Results - last 48 hr 08/19/21 08/19/21 08/19/21 14:57 14:57 16:34 WBC RBC Hgb Hct MCV MCH MCHC RDW Plt Count MPV Immature Gran % (Auto) Neut % (Auto) Lymph % (Auto) [place] % (Auto) Eos % (Auto) Baso % (Auto) Lymph # (Auto) [place] # (Auto) Eos # (Auto) Baso # (Auto) Abs Immat Gran (auto) Absolute Neuts (auto) Absolute Nucleated RBC Nucleated RBC % (auto) Smear Tech's Comments VBG pH VBG pCO2 VBG pO2 VBG HCO3 VBG O2 Saturation VBG Base Excess Sodium 139 Potassium 4.3 D Chloride 95 L Carbon Dioxide 19 L Anion Gap 29 H BUN 37 H Creatinine 1.99 H Estim Creat Clear Calc 22.0 Estimated GFR 31 POC Glucose Random Glucose 940 H* Lactic Acid F/U @ 2Hr Calcium 12.1 H D Phosphorus 2.7 Magnesium Total Bilirubin AST ALT Alkaline Phosphatase C-Reactive Protein Total Protein Albumin 4.9 D Urine Color Urine Appearance Urine pH Ur Specific [place] Urine Protein Urine Glucose (UA) Urine Ketones Urine Blood Urine Nitrite Ur Leukocyte Esterase Urine RBC Urine WBC Ur Squamous Epith Cells Urine Bacteria Urine Test Urine Opiates Screen Urine Fentanyl Screen Ur Barbiturates Screen Ur Phencyclidine Scrn Ur Amphetamines Screen U Benzodiazepines Scrn Urine Cocaine Screen U Marijuana (THC) Screen COVID-19 (BRENDA) Negative COVID-19 Clin Com See Note Blood Type Cancelled Rho(D) Type Cancelled Antibody Screen Cancelled 08/19/21 08/19/21 08/19/21 16:51 18:19 18:27 WBC RBC Hgb Hct MCV MCH MCHC RDW Plt Count MPV Immature Gran % (Auto) Neut % (Auto) Lymph % (Auto) [place] % (Auto) Eos % (Auto) Baso % (Auto) Lymph # (Auto) [place] # (Auto) Eos # (Auto) Baso # (Auto) Abs Immat Gran (auto) Absolute Neuts (auto) Absolute Nucleated RBC Nucleated RBC % (auto) Smear Tech's Comments VBG pH VBG pCO2 VBG pO2 VBG HCO3 VBG O2 Saturation VBG Base Excess Sodium 142 Potassium 3.8 Chloride 102 Carbon Dioxide 25 Anion Gap 19 BUN 31 H Creatinine 1.03 Estim Creat Clear Calc 42.5 Estimated GFR > 60 POC Glucose 366 H* 200 H Random Glucose 189 H D Lactic Acid F/U @ 2Hr Calcium 10.9 H D Phosphorus Magnesium Total Bilirubin AST ALT Alkaline Phosphatase C-Reactive Protein Total Protein Albumin Urine Color Urine Appearance Urine pH Ur Specific [place] Urine Protein Urine Glucose (UA) Urine Ketones Urine Blood Urine Nitrite Ur Leukocyte Esterase Urine RBC Urine WBC Ur Squamous Epith Cells Urine Bacteria Urine Test Urine Opiates Screen Urine Fentanyl Screen Ur Barbiturates Screen Ur Phencyclidine Scrn Ur Amphetamines Screen U Benzodiazepines Scrn Urine Cocaine Screen U Marijuana (THC) Screen COVID-19 (BRENDA) COVID-19 Clin Com Blood Type Rho(D) Type Antibody Screen 08/19/21 08/19/21 08/19/21 18:27 20:22 21:40 WBC RBC Hgb Hct MCV MCH MCHC RDW Plt Count MPV Immature Gran % (Auto) Neut % (Auto) Lymph % (Auto) [place] % (Auto) Eos % (Auto) Baso % (Auto) Lymph # (Auto) [place] # (Auto) Eos # (Auto) Baso # (Auto) Abs Immat Gran (auto) Absolute Neuts (auto) Absolute Nucleated RBC Nucleated RBC % (auto) Smear Tech's Comments VBG pH VBG pCO2 VBG pO2 VBG HCO3 VBG O2 Saturation VBG Base Excess Sodium Potassium Chloride Carbon Dioxide Anion Gap BUN Creatinine Estim Creat Clear Calc Estimated GFR POC Glucose 175 H Random Glucose Lactic Acid F/U @ 2Hr Cancelled Calcium Phosphorus Magnesium Total Bilirubin AST ALT Alkaline Phosphatase C-Reactive Protein Total Protein Albumin Urine Color Urine Appearance Urine pH Ur Specific [place] Urine Protein Urine Glucose (UA) Urine Ketones Urine Blood Urine Nitrite Ur Leukocyte Esterase Urine RBC Urine WBC Ur Squamous Epith Cells Urine Bacteria Urine Test NEGATIVE Urine Opiates Screen Urine Fentanyl Screen Ur Barbiturates Screen Ur Phencyclidine Scrn Ur Amphetamines Screen U Benzodiazepines Scrn Urine Cocaine Screen U Marijuana (THC) Screen COVID-19 (BRENDA) COVID-19 Clin Com Blood Type Rho(D) Type Antibody Screen 08/19/21 08/19/21 08/20/21 21:40 21:40 00:32 WBC RBC Hgb Hct MCV MCH MCHC RDW Plt Count MPV Immature Gran % (Auto) Neut % (Auto) Lymph % (Auto) [place] % (Auto) Eos % (Auto) Baso % (Auto) Lymph # (Auto) [place] # (Auto) Eos # (Auto) Baso # (Auto) Abs Immat Gran (auto) Absolute Neuts (auto) Absolute Nucleated RBC Nucleated RBC % (auto) Smear Tech's Comments VBG pH VBG pCO2 VBG pO2 VBG HCO3 VBG O2 Saturation VBG Base Excess Sodium Potassium Chloride Carbon Dioxide Anion Gap BUN Creatinine Estim Creat Clear Calc Estimated GFR POC Glucose 41 L* Random Glucose Lactic Acid F/U @ 2Hr Calcium Phosphorus Magnesium Total Bilirubin AST ALT Alkaline Phosphatase C-Reactive Protein Total Protein Albumin Urine Color YELLOW Urine Appearance CLEAR Urine pH 5.5 Ur Specific [place] 1.015 Urine Protein NEG Urine Glucose (UA) >=1000 H Urine Ketones 15 Urine Blood TRACE Urine Nitrite NEG Ur Leukocyte Esterase NEG Urine RBC 0-2 Urine WBC 0 Ur Squamous Epith Cells NONE Urine Bacteria TRACE Urine Test Urine Opiates Screen POSITIVE H Urine Fentanyl Screen POSITIVE H Ur Barbiturates Screen Not Detected Ur Phencyclidine Scrn Not Detected Ur Amphetamines Screen Not Detected U Benzodiazepines Scrn Not Detected Urine Cocaine Screen POSITIVE H U Marijuana (THC) Screen Not Detected COVID-19 (BRENDA) COVID-19 Clin Com Blood Type Rho(D) Type Antibody Screen 08/20/21 08/20/21 08/20/21 01:59 06:35 07:27 WBC RBC Hgb Hct MCV MCH MCHC RDW Plt Count MPV Immature Gran % (Auto) Neut % (Auto) Lymph % (Auto) [place] % (Auto) Eos % (Auto) Baso % (Auto) Lymph # (Auto) [place] # (Auto) Eos # (Auto) Baso # (Auto) Abs Immat Gran (auto) Absolute Neuts (auto) Absolute Nucleated RBC Nucleated RBC % (auto) Smear Tech's Comments VBG pH VBG pCO2 VBG pO2 VBG HCO3 VBG O2 Saturation VBG Base Excess Sodium Potassium Chloride Carbon Dioxide Anion Gap BUN Creatinine Estim Creat Clear Calc Estimated GFR POC Glucose 104 151 H 124 H Random Glucose Lactic Acid F/U @ 2Hr Calcium Phosphorus Magnesium Total Bilirubin AST ALT Alkaline Phosphatase C-Reactive Protein Total Protein Albumin Urine Color Urine Appearance Urine pH Ur Specific [place] Urine Protein Urine Glucose (UA) Urine Ketones Urine Blood Urine Nitrite Ur Leukocyte Esterase Urine RBC Urine WBC Ur Squamous Epith Cells Urine Bacteria Urine Test Urine Opiates Screen Urine Fentanyl Screen Ur Barbiturates Screen Ur Phencyclidine Scrn Ur Amphetamines Screen U Benzodiazepines Scrn Urine Cocaine Screen U Marijuana (THC) Screen COVID-19 (BRENDA) COVID-19 Clin Com Blood Type Rho(D) Type Antibody Screen 08/20/21 08/20/21 08/20/21 08:59 08:59 09:04 WBC 13.5 H RBC 3.98 L Hgb 11.0 L Hct 34.4 L MCV 86.4 MCH 27.6 MCHC 32.0 RDW 15.9 Plt Count 280 D MPV 9.4 Immature Gran % (Auto) 0.4 Neut % (Auto) 73.4 H Lymph % (Auto) 19.9 L [place] % (Auto) 5.6 Eos % (Auto) 0.5 Baso % (Auto) 0.2 Lymph # (Auto) 2.7 [place] # (Auto) 0.8 Eos # (Auto) 0.1 Baso # (Auto) 0.0 Abs Immat Gran (auto) 0.05 H Absolute Neuts (auto) 9.9 H Absolute Nucleated RBC 0.000 Nucleated RBC % (auto) 0.0 Smear Tech's Comments VBG pH 7.48 H VBG pCO2 33 VBG pO2 60 VBG HCO3 25 VBG O2 Saturation 90.0 VBG Base Excess 2.6 Sodium 139 Potassium 3.8 Chloride 99 Carbon Dioxide 29 Anion Gap 15 BUN 20 H Creatinine 1.14 Estim Creat Clear Calc 52.7 Estimated GFR 59 POC Glucose Random Glucose 121 H Lactic Acid F/U @ 2Hr Calcium 10.8 H Phosphorus 1.9 L Magnesium 1.5 L Total Bilirubin 0.5 AST 25 ALT 23 Alkaline Phosphatase 110 D C-Reactive Protein Total Protein 7.0 D Albumin 3.6 D Urine Color Urine Appearance Urine pH Ur Specific [place] Urine Protein Urine Glucose (UA) Urine Ketones Urine Blood Urine Nitrite Ur Leukocyte Esterase Urine RBC Urine WBC Ur Squamous Epith Cells Urine Bacteria Urine Test Urine Opiates Screen Urine Fentanyl Screen Ur Barbiturates Screen Ur Phencyclidine Scrn Ur Amphetamines Screen U Benzodiazepines Scrn Urine Cocaine Screen U Marijuana (THC) Screen COVID-19 (BRENDA) COVID-19 Clin Com Blood Type Rho(D) Type Antibody Screen 08/20/21 08/20/21 08/20/21 11:33 16:31 21:08 WBC RBC Hgb Hct MCV MCH MCHC RDW Plt Count MPV Immature Gran % (Auto) Neut % (Auto) Lymph % (Auto) [place] % (Auto) Eos % (Auto) Baso % (Auto) Lymph # (Auto) [place] # (Auto) Eos # (Auto) Baso # (Auto) Abs Immat Gran (auto) Absolute Neuts (auto) Absolute Nucleated RBC Nucleated RBC % (auto) Smear Tech's Comments VBG pH VBG pCO2 VBG pO2 VBG HCO3 VBG O2 Saturation VBG Base Excess Sodium Potassium Chloride Carbon Dioxide Anion Gap BUN Creatinine Estim Creat Clear Calc Estimated GFR POC Glucose 142 H 84 112 Random Glucose Lactic Acid F/U @ 2Hr Calcium Phosphorus Magnesium Total Bilirubin AST ALT Alkaline Phosphatase C-Reactive Protein Total Protein Albumin Urine Color Urine Appearance Urine pH Ur Specific [place] Urine Protein Urine Glucose (UA) Urine Ketones Urine Blood Urine Nitrite Ur Leukocyte Esterase Urine RBC Urine WBC Ur Squamous Epith Cells Urine Bacteria Urine Test Urine Opiates Screen Urine Fentanyl Screen Ur Barbiturates Screen Ur Phencyclidine Scrn Ur Amphetamines Screen U Benzodiazepines Scrn Urine Cocaine Screen U Marijuana (THC) Screen COVID-19 (BRENDA) COVID-19 Clin Com Blood Type Rho(D) Type Antibody Screen 08/21/21 08/21/21 08/21/21 07:29 10:41 10:41 WBC 10.6 RBC 3.89 L Hgb 11.0 L Hct 33.7 L MCV 86.6 MCH 28.3 MCHC 32.6 RDW 15.5 Plt Count 212 MPV 10.3 Immature Gran % (Auto) 0.7 H Neut % (Auto) 73.3 H Lymph % (Auto) 17.9 L [place] % (Auto) 7.5 Eos % (Auto) 0.2 Baso % (Auto) 0.4 Lymph # (Auto) 1.9 [place] # (Auto) 0.8 Eos # (Auto) 0.0 Baso # (Auto) 0.0 Abs Immat Gran (auto) 0.07 H Absolute Neuts (auto) 7.8 Absolute Nucleated RBC 0.000 Nucleated RBC % (auto) 0.0 Smear Tech's Comments VERIFIED VBG pH VBG pCO2 VBG pO2 VBG HCO3 VBG O2 Saturation VBG Base Excess Sodium 135 Potassium 4.7 D Chloride 90 L Carbon Dioxide 31 H Anion Gap 19 BUN 13 Creatinine 0.71 Estim Creat Clear Calc 84.6 Estimated GFR > 60 POC Glucose 325 H Random Glucose 134 H Lactic Acid F/U @ 2Hr Calcium 10.3 H Phosphorus 2.2 L Magnesium 1.5 L Total Bilirubin AST ALT Alkaline Phosphatase C-Reactive Protein 0.82 H Total Protein Albumin Urine Color Urine Appearance Urine pH Ur Specific [place] Urine Protein Urine Glucose (UA) Urine Ketones Urine Blood Urine Nitrite Ur Leukocyte Esterase Urine RBC Urine WBC Ur Squamous Epith Cells Urine Bacteria Urine Test Urine Opiates Screen Urine Fentanyl Screen Ur Barbiturates Screen Ur Phencyclidine Scrn Ur Amphetamines Screen U Benzodiazepines Scrn Urine Cocaine Screen U Marijuana (THC) Screen COVID-19 (BRENDA) COVID-19 Clin Com Blood Type Rho(D) Type Antibody Screen 08/21/21 08/21/21 11:08 12:26 WBC RBC Hgb Hct MCV MCH MCHC RDW Plt Count MPV Immature Gran % (Auto) Neut % (Auto) Lymph % (Auto) [place] % (Auto) Eos % (Auto) Baso % (Auto) Lymph # (Auto) [place] # (Auto) Eos # (Auto) Baso # (Auto) Abs Immat Gran (auto) Absolute Neuts (auto) Absolute Nucleated RBC Nucleated RBC % (auto) Smear Tech's Comments VBG pH VBG pCO2 VBG pO2 VBG HCO3 VBG O2 Saturation VBG Base Excess Sodium Potassium Chloride Carbon Dioxide Anion Gap BUN Creatinine Estim Creat Clear Calc Estimated GFR POC Glucose 124 H 158 H Random Glucose Lactic Acid F/U @ 2Hr Calcium Phosphorus Magnesium Total Bilirubin AST ALT Alkaline Phosphatase C-Reactive Protein Total Protein Albumin Urine Color Urine Appearance Urine pH Ur Specific [place] Urine Protein Urine Glucose (UA) Urine Ketones Urine Blood Urine Nitrite Ur Leukocyte Esterase Urine RBC Urine WBC Ur Squamous Epith Cells Urine Bacteria Urine Test Urine Opiates Screen Urine Fentanyl Screen Ur Barbiturates Screen Ur Phencyclidine Scrn Ur Amphetamines Screen U Benzodiazepines Scrn Urine Cocaine Screen U Marijuana (THC) Screen COVID-19 (BRENDA) COVID-19 Clin Com Blood Type Rho(D) Type Antibody Screen Imaging Radiology Impressions: ITS Impressions Chest X-Ray 08/19/21 16:00 IMPRESSION: Increased right lower lung opacification with probable small right pleural effusion suggesting an infectious/inflammatory process increased from the previous study. Lumbar Spine CT 08/21/21 13:00 IMPRESSION: Septic arthritis and osteomyelitis at the right sacroiliac joint. There is a pathologic fracture of the iliac bone. Mild disc bulge in the lower lumbar spine. The previously identified large right iliopsoas abscess seen on April 2021 exam as resolved. Mental Status Exam Mental Status Exam Patient Appearance: Appropriate (cachectic ) Patient Behavior: Appropriate and Cooperative Affect Description: Calm Thought Process: Goal Oriented Judgement: Fair Medications Medications Current Medications Heparin Sodium (Porcine) (Heparin Sodium,Porcine 5,000 Unit/Ml Vial) 5,000 unit SUBCUT Q8H [facility] Last Admin: 08/21/21 07:52 Dose: Not Given Documented by: Insulin Glargine (Insulin Glargine,Hum.Rec.Anlog 100 Unit/Ml 10 Ml Vial) 20 unit SUBCUT DAILY [facility] Last Admin: 08/21/21 07:46 Dose: 20 unit Documented by: Insulin Human Lispro (Insulin Lispro 100 Unit/Ml 3 Ml Vial) 0 unit SUBCUT QIDACHS [facility]; Protocol Last Admin: 08/21/21 12:32 Dose: Not Given Documented by: Magnesium Oxide (Magnesium Oxide 400 Mg Tablet) 400 mg PO BIDPC [facility] Last Admin: 08/21/21 12:02 Dose: 400 mg Documented by: Ondansetron HCl (Ondansetron Odt 4 Mg Tab.Rapdis) 4 mg TRANSLINGU Q6H PRN PRN Reason: Nausea Last Admin: 08/21/21 07:57 Dose: 4 mg Documented by: Allergies Allergies Allergy/AdvReac Type Severity Reaction Status Date / Time No Known Allergies Allergy Verified 05/06/21 05:11 Assessment & Plan Assessment & Plan (1) Opioid use disorder, severe, dependence: Status: Acute Code(s): F11.20 - Opioid dependence, uncomplicated Assessment and Plan: At this point, patient is declining methadone and is endorsing back pain which she found relief from with oxycodone 10mg. Patient awaiting CARE team evaluation, if psychiatrically admitted, this telegraphic typewriter repairer can revisit medications for OUD and transition from oxycodone to buprenorphine if patient is agreeable. Case discussed with attending hospitalist and RSRN (2) Cocaine use disorder, moderate, dependence: Status: Acute Code(s): F14.20 - Cocaine dependence, uncomplicated I spent ___50___ minutes with the patient and/or on the patient floor today, greater than?50% of which was spent counseling/coordinating care. [facility] Past Medical History Medical History Anxiety Bacteremia Bacteremia due to methicillin susceptible Staphylococcus aureus (MSSA) Cocaine abuse Diabetes mellitus type 1 Endocarditis Heroin abuse Leukocytosis Polysubstance abuse Staphylococcus aureus bacteremia Substance abuse Social History Social History Household Members: Unknown / Unable to assess Household Members Other:: currently living with her boyfriend Housing: Homeless Do you presently have visiting nurse or other home services: No Unable to assess alcohol history related to: Refusing to respond Patient Tobacco Use Status: Tobacco use Unknown Tobacco use type: Cigarette Cigarette Packs Per Day: 1 Cigarettes Per Day: 20.0 Years Smoked: ''since I was 16'' e-Cigarette/Vaping Use: Former Use Second Hand Smoke Exposure: Yes Use of substances other than those prescribed or required for medical reasons: Refusing to respond Substance Use Type: Heroin Currently Displaying Signs/Symptoms of Drug Intoxication Withdrawal: No Advance Directives: No Advance Directives Information Provided: No Do you have thoughts of harming others: None Do you have a plan to hurt others: No Plan Recently lost weight without trying: Unsure Nutrition Risks: Anorexia : No Poor oral hygiene: Yes service: No Current occupational status: unemployed Sexual orientation: Straight/Heterosexual
[2021-08-21 16:23] LABS: Glucose, Whole Blood 279 mg/dL (60-115)
[2021-08-21 17:33] LABS: Erythrocyte Sedimentation Rate 14 MM/HR (0-20)
[2021-08-21] MEDS: Lidocaine 4 % Patch ADH..PATCH 1 PATCH TRANSDERMA (17:40)
[2021-08-21 19:25] VITALS: BP 145/99; PULSE 80; RESP 20; TEMP 36.2; O2SAT 98
[2021-08-21 20:14] LABS: Glucose, Whole Blood 127 mg/dL (60-115)
[2021-08-21 23:43] VITALS: BP 122/82; PULSE 67; RESP 17; TEMP 36.3; O2SAT 97
[2021-08-22 03:41] VITALS: BP 117/76; PULSE 62; RESP 17; TEMP 36.4; O2SAT 95
[2021-08-22 05:28] VITALS: BMI 16.1
[2021-08-22 07:39] LABS: Glucose, Whole Blood 502 mg/dL (60-115)
[2021-08-22 07:50] VITALS: BP 120/81; PULSE 56; RESP 18; TEMP 36.3; O2SAT 96
[2021-08-22 07:50] LABS: Glucose, Whole Blood 477 mg/dL (60-115)
[2021-08-22] MEDS: Insulin Glargine,Hum.rec.anlog 100 UNIT/ML 10 ML VIAL 20 UNIT SUBCUT (08:03)
[2021-08-22] MEDS: Insulin Lispro 100 UNIT/ML 3 ML VIAL SUBCUT (08:03)
[2021-08-22] MEDS: oxyCODONE HCl Immed Release 5 MG TABLET 10 MG PO (08:04)
[2021-08-22] MEDS: Magnesium Oxide 400 MG TABLET PO (08:05)
[2021-08-22 10:07] LABS: Glucose, Whole Blood 239 mg/dL (60-115)
--- NOTE | 2021-08-22 11:09 | MHC.CM.PN ---
Addendum entered by Lydia Alejandre RN 08/22/21 11:10: FEEDER LOADER INSTRUCTING PT TO RETURN TO [facility] AND HE WILL MEET W/HER SHORTLY. Original Note: PER BAKER HELPER PT LEFT AMA APPROX 20 MIN AGO, PT RETURNED TO UNIT AND INSTRUCTED TO GO TO ED, SOFTWARE IMPLEMENTATION PROJECT MANAGER SPEAKING W/PT IN HALLWAY.
--- NOTE | 2021-08-22 11:12 | PC.NURSE ---
Pt refused morning lab draw. Pt refused threat monitoring analyst. Pt agreeable to AM insulin but refused SUBQ heparin. Pt states she wants to leave hospital. Care team consult talked with patient. Hospitalist spoke with patient in room with this RN to explain risks of choosing to leave against medical advice. Pt states she is leaving and signed AMA form with 2 witnesses. No IVs in place, no threat monitoring analyst on. Pt went to front entrance of hospital and exited building 10:21 08/22/21.
--- NOTE | 2021-08-22 11:19 | PM.EVENT ---
Event Note Date of Service: 08/22/21 Event Note: This morning, patient declining lab draws and medication, requesting apple juice and self inducing vomiting. patient telling nurse she wanted to leave AMA. she was seen by care team this morning and did not qualify for inpatient psychiatric care. I discussed with her the risks of leaving AMA including recurrent DKA and . She was awake, alert and verbalized her understanding but ultimately decided to leave the hospital against medical advice.
== END 2021-08-22 10:21 | disposition left against medical advice (07) | DRG 420 ==
LOC: HO.ED 13:35 → HO.EDOVER 16:20 → HO.ICU 17:08 → HO.S3 08-20 15:17
PROVIDERS: Registered Nurse Community Health; Admitting Provider Internal Medicine Pulmonary Disease; Emergency Provider Emergency Medicine; Visit Provider Physician Assistant Medical
DX: E10.10 Type 1 diabetes mellitus with ketoacidosis without coma (principal); G93.41 Metabolic encephalopathy; N17.9 Acute kidney failure, unspecified; E83.39 Other disorders of phosphorus metabolism; R64 Cachexia; F11.20 Opioid dependence, uncomplicated; E83.42 Hypomagnesemia; D72.829 Elevated white blood cell count, unspecified; Z86.14 Personal history of Methicillin resistant Staphylococcus aureus infection; Z20.822 Contact with and (suspected) exposure to COVID-19; Z68.1 Body mass index [BMI] 19.9 or less, adult; Z79.4 Long term (current) use of insulin; Z79.899 Other long term (current) drug therapy
CPT/HCPCS: 36415; 71045; 72131; 80048; 80053; 80307; 81001; 81025; 82040; 82140; 82803; 82947; 83605; 83735; 84100; 84484; 85025; 85652; 86140; 87040; 87635; 93005; 96361; 96365; 96372; 96375; 99285; J2060; J2543; J3370

== ENCOUNTER 2021-08-22 16:37 | Emergency (ER) | payer MEDICAID, SELFPAY ==
[2021-08-22 16:52] VITALS: BP 113/70; BP 121/81; PULSE 100; PULSE 98; RESP 16; TEMP 37.1; O2SAT 97; BMI 15.1
--- NOTE | 2021-08-22 17:27 | ED_ITS ---
HPI - Overdose General Chief Complaint: Overdose Stated Complaint: OVEDOSE,NARCAN GIVEN BY BYSTANDER PER EMS Time Seen by Provider: 08/22/21 17:08 Source: patient Mode of arrival: ambulatory Limitations: no limitations History of Present Illness HPI Narrative: 25-year-old female presents for being unresponsive at [facility] from an overdose of heroin, given 4 mg of Narcan and transported here. Patient left [facility] where she was hospitalized today against medical advice. Patient was admitted 08/19/2021 went to the ICU for altered mental status in DKA and was on an insulin drip. Patient is a insulin-dependent diabetic with a history of RUDI, infective endocarditis, meningitis, and septic emboli, she spent 2 months at [facility] for treatment of same, recently discharged from there. Patient endorses back pain, and repeatedly asks me if I will give her pain medicine Denies fever, rashes, chest pain, shortness of breath. Related Data Home Medications Medication Instructions Recorded Confirmed No Known Home Meds 08/19/21 08/22/21 Allergies Allergy/AdvReac Type Severity Reaction Status Date / Time amoxicillin Allergy Rash Verified 08/22/21 16:52 azithromycin Allergy Rash Verified 08/22/21 16:52 Review of Systems Constitutional: Constitutional: Reports body ache(s), Denies chills, Denies fatigue, Denies fever(s), Denies headache(s), Denies malaise and Denies weakness Eyes: Eyes: Denies diplopia ENT: Denies vertigo, Denies dizziness, Denies headache(s) and Denies throat swelling Cardiovascular: Cardiovascular: Denies chest pain, Denies syncope, Denies leg edema, Denies lightheadedness, Denies Loss of Consciousness, Denies palpitations and Denies dyspnea Respiratory: Respiratory: Denies chest congestion, Denies cough and Denies dyspnea Gastrointestinal: Gastrointestinal: Denies abdominal pain, Denies hematochezia, Denies constipation, Denies diarrhea and Denies vomiting Musculoskeletal: Musculoskeletal: Reports back pain Neurologic: Denies confusion, Denies vertigo, Denies dizziness, Denies syncope, Denies headache(s) and Denies weakness Psychiatric: Psychiatric: Denies anxiety, Denies confusion and Denies depression Endocrine: Endocrine: Denies fatigue and Denies palpitations Allergic/Immunologic: Allergic/Immunologic: Denies throat swelling PMFSH Past Medical History Medical History Anxiety Bacteremia Bacteremia due to methicillin susceptible Staphylococcus aureus (MSSA) Cocaine abuse Diabetes mellitus type 1 Endocarditis Heroin abuse Leukocytosis Polysubstance abuse Staphylococcus aureus bacteremia Substance abuse Social History Social History Household Members: Unknown / Unable to assess Household Members Other:: currently living with her boyfriend Housing: Homeless Do you presently have visiting nurse or other home services: No Unable to assess alcohol history related to: Refusing to respond Patient Tobacco Use Status: Tobacco use Unknown Tobacco use type: Cigarette Cigarette Packs Per Day: 1 Cigarettes Per Day: 20.0 Years Smoked: ''since I was 16'' e-Cigarette/Vaping Use: Former Use Second Hand Smoke Exposure: Yes Substance Use Type: Heroin Advance Directives: No Advance Directives Information Provided: No Patient : No service: No Current occupational status: unemployed Sexual orientation: Straight/Heterosexual Physical Exam Vital Signs: Vital Signs: Last Vital Signs Temp 98.8 F 08/22/21 16:52 Pulse 86 08/22/21 19:54 Resp 18 08/22/21 19:54 BP 135/92 H 08/22/21 19:54 Pulse Ox 100 08/22/21 19:54 BMI result Body Mass Index 15.1 Const: General: alert and awake; No confusion Nutritional Appearance: cachectic and malnourished Orientation/consciousness: patient oriented x3 and No confusion Limitations: no limitations HEENT: Head: Yes normal to inspection, Yes normocephalic and Yes atraumatic Ears: hearing grossly normal bilaterally and external ears normal General nose exam: Normal external nose present Face and sinus: Yes normal facial exam and Yes sinuses nontender Mouth: Normal oral and palatal mucosa present Throat: Yes posterior oropharynx normal Eyes: Conjunctivae: conjunctivae normal Pupils: Equal, round and reactive pupils present EOM: EOMs intact bilaterally Neck: Neck: Yes full ROM, Yes no lymphadenopathy and Yes supple Resp: Effort & Inspection: normal respiratory effort and able to speak in complete sentences Auscultation: clear to auscultation bilaterally, no hobbies and crafts sales representative ckles, no rales, no rhonchi and no wheezes Cardio: Rate: regular rate Rhythm: regular rhythm Heart sounds: S1 normal heart sound present and S2 normal heart sound present GI: Inspection: Yes normal to inspection Palpation (GI): Soft to palpation, nontender, no guarding and not rigid Percussion: Yes normal to percussion Auscultation: normal bowel sounds Back/Spine/Pelvis: Other: Tender over the lumbar and sacral spine Skin: Other: Tracheotomy scars, numerous healing track castelan, abrasions Neuro: General: patient oriented x3 and No confusion Cranial nerves: Yes Equal, round and reactive pupils present Extrem: General: Yes normal to inspection and Yes full ROM Psych: Appearance: grossly normal Affect: normal affect Attitude: cooperative Thought process: Normal thought process present Course Course Course Narrative: This is a 25 year old female with complicated past medical history including IVDU, DM, recent prolonged hospitalization at [facility] for IE, meningitis, septic emboli, perforated bowel among others who was discharged on 08/17 and presented to [facility] ED 08/19 and was subsequently admitted to the ICU for altered mental status and DKA requiring insulin drip, downgraded to the medical floor on August 20. She since left the hospital AMA after being hospitalized for DKA, hypo magnesemia, hypophosphatemia, AKA, metabolic encephalopathy, back pain, and polysubstance use disorder, and she presents via police for being found unresponsive at a [employer]. Patient was given 4 of Narcan. On exam, patient is afebrile, with stable vitals, she is chronically ill- appearing, she is malnourished, with multiple skin lesions She is asking me repeatedly for pain medication Patient endorses low back pain. She is tender over her lumbar spine. CT done yesterday shows chronic changes for osteomyelitis and septic arthritis, patient completed course of antibiotics at [facility], hospitalist today discussed with Infectious Disease, no further need for antibiotics Called [place] in pharmacy, patient has never filled any prescriptions as an outpatient, he will look into what patient was given here. Makes as patient was given Lantus 20 IU at 08:00 this morning, her next dose will be tomorrow morning. Stated she has on a Humalog sliding scale, he will order that for me. Patient is on a lidocaine patch, Mag-Ox 400 mg b.i.d. with meals, patient was on methadone but did not get any methadone yesterday or today Discussed with Dr Vitale if we should redraw labs and imaging on her, he stated that we did not need to do that, and that she is cleared for detox Andrei recovery room rn saw patient, patient does want to get into recovery. She has a bed search for recovery now. Patient placed into physician observation MDM - Overdose Lab Data Labs: Lab Results 08/22/21 08/22/21 Range/Units 19:53 20:47 POC Glucose 213 H (60-115) mg/dL COVID-19 (BRENDA) Negative (Negative) COVID-19 Clin Com See Note Discharge Plan Discharge Clinical Impression: Opioid use disorder, severe, dependence Patient Disposition: Still a Patient Prescriptions: No Action No Known Home Meds 0RF
--- NOTE | 2021-08-22 18:24 | PHA.MEDREC ---
Pharmacy Consult ? Medication Reconciliation Pharmacy has completed the medication reconciliation. Pt left earlier today AMA. Currently not on any medications from home, med list pulled from her inpatient stay and discussed with Lesly
--- NOTE | 2021-08-22 18:48 | MHC.RECOVSUP ---
Recovery Support note: Patient is a 25 year old Solomon Islander speaking female who presented to [facility] on 08/22/21 after an accidental overdose. Patient left AMA from the hospital earlier this morning. Emergency department providers have medically cleared this patient for ATS. Due to patient's medical history, patient will be referred to ATS and hospital based ATS programs. Patient reports using 2 bundles a day with last use prior to arrival. This remote mortgage underwriter will assist patient in referring to treatment facilities.
[2021-08-22] MEDS: Lidocaine 4 % Patch ADH..PATCH 1 PATCH TRANSDERMA (18:54)
--- NOTE | 2021-08-22 19:03 | MHC.RECOVSUP ---
Reason for consult: Follow up o Current location: ED-18 <del>o</del> <del>Identified</del> <del>substance</del> <del>use</del> <del>concern:</del> <del>-</del> <del>Overdose</del> <del>-</del> <del>Withdrawal</del> <del>-</del> <del>Seeking</del> <del>ATS</del> <del>(detox)</del> <del>-</del> <del>Support</del> <del>?</del> <del>Intervention:</del> <del>o</del> <del>ATS</del> <del>bed</del> <del>search</del> <del>started/completed/in</del> <del>process</del> <del>o</del> <del>MAT</del> <del>started</del> <del>or</del> <del>to</del> <del>be</del> <del>started</del> <del>o</del> <del>Community</del> <del>resources</del> <del>provided</del> <del>o</del> <del>Harm</del> <del>reduction</del> <del>discussion</del> <del>?</del> <del>Plan:</del> <del>o</del> <del>Referral</del> <del>to</del> <del>[facility]</del> <del>o</del> <del>Bed</del> <del>search</del> <del>in</del> <del>progress</del> <del>to</del> <del>o</del> <del>Follow</del> <del>up</del> <del>tomorrow</del> <del>o</del> <del>Patient</del> <del>awaiting</del> <del>crisis</del> <del>evaluation</del> <del>o</del> <del>Patient</del> <del>to</del> <del>follow</del> <del>up</del> <del>with</del> <del>[facility]</del> <del>after</del> <del>discharge</del> ? Additional information: I will be following up with María throughout the night and also on any referral that have been submitted for ATS. I spoke briefly with pt after Andrei did a warm hand off and she stated that she does not think she overdose instead thinks that she might have had a seizure due to he high blood sugar.
[2021-08-22 19:54] VITALS: BP 135/92; PULSE 86; RESP 18; O2SAT 100
[2021-08-22 20:17] LABS: COVID-19 Test Negative (Negative); IDNOW Serial# 55D5AD1C
--- NOTE | 2021-08-22 20:46 | MHC.RECOVSUP ---
Reason for consult UPDATE <del>o</del> <del>Current</del> <del>location:</del> <del>o</del> <del>Identified</del> <del>substance</del> <del>use</del> <del>concern:</del> <del>-</del> <del>Overdose</del> <del>-</del> <del>Withdrawal</del> <del>-</del> <del>Seeking</del> <del>ATS</del> <del>(detox)</del> <del>-</del> <del>Support</del> <del>?</del> <del>Intervention:</del> <del>o</del> <del>ATS</del> <del>bed</del> <del>search</del> <del>started/completed/in</del> <del>process</del> <del>o</del> <del>MAT</del> <del>started</del> <del>or</del> <del>to</del> <del>be</del> <del>started</del> <del>o</del> <del>Community</del> <del>resources</del> <del>provided</del> <del>o</del> <del>Harm</del> <del>reduction</del> <del>discussion</del> <del>?</del> <del>Plan:</del> <del>o</del> <del>Referral</del> <del>to</del> <del>[facility]</del> <del>o</del> <del>Bed</del> <del>search</del> <del>in</del> <del>progress</del> <del>to</del> <del>o</del> <del>Follow</del> <del>up</del> <del>tomorrow</del> <del>o</del> <del>Patient</del> <del>awaiting</del> <del>crisis</del> <del>evaluation</del> <del>o</del> <del>Patient</del> <del>to</del> <del>follow</del> <del>up</del> <del>with</del> <del>[facility]</del> <del>after</del> <del>discharge</del> ? Additional information: spoke with pt and she was able to talk and shared some sensitive information that was related to her active drug use due to ongoing trauma. pt shared that sometimes she feels she has mental health issues because she continues to use drugs despite the results always being the same. she also stated that she wants recovery and would like to be with her son in the future. pt shared that she sometimes feels as if she is being judged because of her her NIALL. I told her that even if that is true, not to allow that to discourage her and her motivation for recovery. she is looking forward to going to detox. Andrei will follow up in the morning if pt continues to be here.
[2021-08-22 20:51] LABS: Glucose, Whole Blood 213 mg/dL (60-115)
[2021-08-22] MEDS: LORazepam 1 MG TABLET 2 MG PO (21:07)
[2021-08-22] MEDS: Insulin Lispro 100 UNIT/ML 3 ML VIAL SUBCUT (21:07)
[2021-08-22] MEDS: Magnesium Oxide 400 MG TABLET PO (21:07)
[2021-08-23 00:02] VITALS: BP 109/77; PULSE 90; RESP 18; O2SAT 97
[2021-08-23 01:07] LABS: Glucose, Whole Blood 61 mg/dL (60-115)
[2021-08-23 04:46] VITALS: BP 131/89; PULSE 100; RESP 14; O2SAT 97
[2021-08-23 06:34] VITALS: BP 122/84; PULSE 82; RESP 14; TEMP 37.1; O2SAT 96
[2021-08-23 07:29] LABS: Glucose, Whole Blood 69 mg/dL (60-115)
[2021-08-23 08:18] VITALS: BP 113/74; PULSE 107; RESP 18; TEMP 37.2; O2SAT 100
[2021-08-23] MEDS: Magnesium Oxide 400 MG TABLET PO (09:20)
--- NOTE | 2021-08-23 11:03 | HO.SUDE ---
SUDE completed on 08/22 Patient is a 25 year old Serbian speaking female who presented to [facility] ED after an accidental overdose. Patient has had several accidental overdoses prior to this one. Patient report using 2 bundles a day IV on average. Patient has been on methadone in the past however reports recently it has made her feel nauseous. Patient has a history of ATS and [facility] admissions in addition to a [address]. Patient has found detox helpful in the past. Patient has been diagnosed with anxiety, depression and PTSD. Patient reports she has been using heroin for at least 3 years, stating I've wasted the last three years of my life. Patient reports interest in going to ATS. This information writer will assist patient in securing a bed. Discussed case with ED staff.
--- NOTE | 2021-08-23 11:53 | PC.NURSE ---
PT ALERT AND ORIENTED, VSS. PT ABLE TO ANSWER QUESTIONS APPROPRIATELY. SHE DENIES SI/HI. NO N/V/D. PT REQUESTING FLUIDS, SHE DECLINED BREAKFAST. MEDS GIVEN DOCUMENTED. SHE WAS SEEN BY TINO FROM CARE TEAM AND SHE AGREED TO INPATIENT DETOX. WILL CONTINUE TO MONITOR.
[2021-08-23 12:21] LABS: Glucose, Whole Blood 305 mg/dL (60-115)
[2021-08-23 12:28] VITALS: BP 137/95; PULSE 79; RESP 19; TEMP 36.6; O2SAT 99
[2021-08-23] MEDS: Insulin Lispro 100 UNIT/ML 3 ML VIAL SUBCUT (12:39)
[2021-08-23] MEDS: LORazepam 1 MG TABLET 2 MG PO (14:05)
--- NOTE | 2021-08-23 16:53 | PC.NURSE ---
PT . SHE DECLINED TO HAVE HER POC DONE OR TO DISCUSS HER INSULIN REGIMEN. SHE DECLINED ASSISTANCE WITH TRANSPORTATION FROM [facility] CARE TEAM. SHE ALSO LEFT HER BELONGINGS IN THE ROOM, STATED THAT SHE DOES NOT WANT THEM. PT LEFT ON FOOT.
--- NOTE | 2021-08-23 17:02 | MHC.RECOVSUP ---
Recovery Support note: [facility] and [facility] report no beds available at this time. Janice Kumar and Marlene did not answer repeated calls. Baldo and Seun both report that patient needs updated labs and approval from the physician or nurse outreach manager and that this would not occur until tomorrow. Patient is not willing to remain any longer in the ED. Patient declined methadone. Patient is not interested in going to [facility]. This customs entry writer and patient called patient's family to try and find a place to wait for treatment however this was unsuccessful. Patient discharged to a friend's house via Lyft. Discussed case with patient's RN and ED provider.
== END 2021-08-23 17:06 | disposition home or self-care (01) ==
PROVIDERS: Physician Assistant; Emergency Provider Internal Medicine
DX: F11.20 Opioid dependence, uncomplicated (principal); E10.9 Type 1 diabetes mellitus without complications; M54.50 Low back pain, unspecified; Z20.822 Contact with and (suspected) exposure to COVID-19
CPT/HCPCS: 82947; 87635; 99285

== ENCOUNTER 2021-08-25 14:33 | Inpatient (IN) | payer MEDICAID, SELFPAY ==
[2021-08-25] VITALS (8 sets, daily range): BP systolic 83–120; BP diastolic 44–85; PULSE 80–100; RESP 14–18; TEMP 36.1–37.3; O2SAT 96–100; BMI 24.8
--- NOTE | ~2021-08-25 | XR_ITS ---
Indication: Fall, pain EXAMINATION: Right knee, right tib-fib. 4 views of the right knee do not demonstrate evidence for acute fracture or dislocation. 2 views of the right tib-fib do not demonstrate evidence for fracture. XR/XR knee RT 4V IMPRESSION: No fracture or dislocation right knee. No fracture right tib-fib
--- NOTE | ~2021-08-25 | XR_ITS ---
EXAMINATION: XR CHEST CLINICAL INFORMATION: Right IJ central venous catheter placement COMPARISON: 08/25/2021 TECHNIQUE: Frontal view of the chest was obtained. FINDINGS: There is a left internal jugular central venous catheter which terminates near the cavoatrial junction. Cardiac leads overlie the chest. The lungs are well expanded. Persistent opacity at the right peripheral base. Left mid and lower lung peripheral opacities are also again noted. No pleural effusion or pneumothorax. XR/XR chest 1V IMPRESSION: Left internal jugular central venous catheter terminates near the cavoatrial junction. No pneumothorax. Persistent bilateral lung opacities.
--- NOTE | ~2021-08-25 | MR_ITS ---
EXAMINATION: MR LUMBAR SPINE WITHOUT AND WITH CONTRAST CLINICAL INFORMATION: Lower extremity weakness. Intravenous drug abuse. History of epidural abscess. COMPARISON: CT scan of the lumbar spine 08/21/2021. TECHNIQUE: Multiplanar MR imaging of the lumbar spine was performed without and with contrast. A total of 5 mL Gadavist was utilized for this examination. FINDINGS: Although only partially included within the sxudf-yn-jycy of this examination there appears to be asymmetric edema and erosive changes involving the right sacroiliac joint. Alignment is otherwise normal. There is slight anterior wedging of the T11, T12, and L1 vertebral bodies with associated Schmorl's nodes involving the upper endplates of T12-L1. Vertebral heights are otherwise normal. Intervertebral disc height and signal intensity is maintained at all levels. The tip of the conus medullaris is located at L2. No mass effect on the conus. Visualized distal cord signal intensity is normal. Annular contours are normal at all levels and there is no canal or neuroforaminal compromise. No mass effect on the traversing or foraminal nerve roots. Of note there appear to be chronic postlaminectomy changes at multiple levels within the mid to lower lumbar spine. Limited visualization of the retroperitoneal anatomy reveals no additional finding. Psoas and paraspinal muscle groups are symmetric. 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 Otherwise unremarkable examination in that there is no epidural abscess. No canal or neuroforaminal compromise. No mass effect on the traversing or foraminal nerve roots.
--- NOTE | ~2021-08-25 | MR_ITS ---
EXAMINATION: MR CERVICAL SPINE WITHOUT AND WITH CONTRAST MR THORACIC SPINE WITHOUT AND WITH CONTRAST CLINICAL INFORMATION: Leg numbness. Reported drug abuse on prior recent MR lumbar spine indication. Infectious process in the lungs on prior chest CT imaging from 08/26/2021. Septic arthritis and osteomyelitis around the right sacroiliac joint on lumbar CT from 08/21/2021. COMPARISON: MR lumbar spine from 08/27/2021. TECHNIQUE: Multiplanar, multisequence imaging acquired through the cervical and thoracic spine without and with intravenous administration of 5 mL of Gadavist. Significantly limited study with motion artifacts. FINDINGS: CERVICAL SPINE: The marrow is homogeneous in signal and the discs are well hydrated. No signal abnormality is seen within the cervical cord. There is no disc pathology, central canal stenosis, or foraminal narrowing. No epidural collection identified. The craniovertebral junction appears normal. The imaged portions of the brain demonstrate no acute abnormality. The vertebral artery flow-voids are maintained. Small right mastoid effusion partially visualized. The facet joints appear normal. No facet joint effusion is visible. There is edema in the deep left paraspinal musculature spanning from the C4 through the C6 levels. There is an indeterminate area of oblong T2 hyperintensity in the superficial paramedian left trapezius musculature spanning from the C4 through the C5 levels, measuring 3 cm CC by 1.4 cm TV by 0.5 cm AP. There is perceived mild enhancement as well of the soft tissue abnormality. THORACIC SPINE: There is a perceived T2 hyperintense mildly expansile intramedullary lesion within the cord at the T5-T6 level measuring 0.7 cm in size. There is T2 hyperintense signal abnormality within the central aspect of the cord extending from the upper T4 level inferiorly to the lower T7 level. No syrinx is seen. No pathologic intradural enhancement is evident, though assessment is limited with motion artifacts. No abnormal intrathecal flow voids are visible on sagittal T2-weighted imaging. The marrow is homogeneous in signal on T1-weighted imaging. There are mild biconcave deformities at the T6 and T9 levels without marrow edema which are presumably chronic. Superior endplate Schmorl's nodes visible at the T11 and T12 levels. There is no central canal stenosis or foraminal narrowing. No disc protrusions are seen. The conus tip is normal, terminating at the T12-L1 level. No marrow edema identified. There is edema in the paraspinal soft tissues of the otv-fe-yqsws thoracic spine which is nonspecific. Patchy areas of consolidation partially visualized in the lungs but better assessed on prior chest CT imaging. Areas of cavitation are also again visible in the right lower lobe and right upper lobe posteriorly. MR/MR cervical spine wo/w con IMPRESSION: Limited examination with motion artifacts. CERVICAL SPINE: Edema in the left multifidus deep medial paraspinal musculature spanning from the C4 through the C6 levels of indeterminate etiology. No marrow edema in the adjacent facet joints or facet joint effusion. Superficial 3 cm CC by 1.4 cm TV by 0.5 cm AP enhancing possible intramuscular collection within the left paramedian trapezius musculature spanning from the C4 through the C5 levels. The possibility of an abscess and/or infectious process cannot be ruled out. CT imaging may be useful for further evaluation of the osseous structures. THORACIC SPINE: 1. Perceived 0.7 cm mildly expansile intramedullary lesion within the cord at the T5-T6 level with surrounding cord signal abnormality which may reflect edema. No abnormal enhancement, though assessment is limited by motion. Differential diagnostic considerations would include neoplastic and infectious/inflammatory etiologies. A demyelinating lesion cannot be ruled out but is felt to be less likely. 2. Additional nonspecific edema in the paraspinal tissues of the qti-ja-gowcq thoracic spine. 3. Partially visualized areas of patchy consolidation in the lungs with areas of cavitation, better assessed on prior chest CT imaging. Imaging findings reported to Dr. Mendez at 6:45 PM on 08/30/2021.
--- NOTE | ~2021-08-25 | XR_ITS ---
Indication: Fall, pain EXAMINATION: Right knee, right tib-fib. 4 views of the right knee do not demonstrate evidence for acute fracture or dislocation. 2 views of the right tib-fib do not demonstrate evidence for fracture. XR/XR tibia fibula RT 2V IMPRESSION: No fracture or dislocation right knee. No fracture right tib-fib
--- NOTE | ~2021-08-25 | XR_ITS ---
EXAMINATION: XR CHEST CLINICAL INFORMATION: Hypoxia COMPARISON: Previous chest x-ray and chest CT 08/26/2021 TECHNIQUE: Frontal view of the chest was obtained. FINDINGS: The cardiac and mediastinal contours are stable. There is a left jugular line with tip projecting over the SVC. There is airspace disease at the right lung base with question of some cavity formation. There is subsegmental atelectasis in the left lower lung and nodular opacity at the left lung base. This is similar to previous exam. There is a small right pleural effusion. There is no left pleural effusion or pneumothorax. Bony structures are unremarkable. XR/XR chest 1V IMPRESSION: Stable chest x-ray exam from 08/26/2021
--- NOTE | ~2021-08-25 | XR_ITS ---
EXAMINATION: XR CHEST CLINICAL INFORMATION: Hypoxemia with cough and sputum production. COMPARISON: August 25, 2021 and studies dating back to April 16, 2021 TECHNIQUE: AP portable view of the chest was obtained. FINDINGS: Left internal jugular central venous catheter seen with tip at the caval atrial junction. There is some density again seen about the right lower lung peripherally with question of a small chronic pneumothorax versus overlying soft tissues or pleural thickening. If this does represent a pneumothorax then it is likely loculated with no definite apical pneumothorax appreciated. There is some linear scarring seen at the left base. No new confluent pneumonitis is appreciated. Heart normal size. No evidence of pulmonary edema. No significant pleural effusion. XR/XR chest 1V IMPRESSION: Question small loculated right lower lung pneumothorax which is not identified on June 22, 2021 but with similar appearance of the pleural disease dating back to studies from August 19, 2021. No new region of disease appreciated.
--- NOTE | ~2021-08-25 | CT_ITS ---
EXAMINATION: CT HEAD WITHOUT CONTRAST CLINICAL INFORMATION: Leg weakness COMPARISON: Head CT January 06, 2021 TECHNIQUE: Contiguous axial imaging was performed from the skull base to vertex without intravenous administration of contrast. This CT examination was performed using dose optimization techniques as appropriate, variously including the following: *Automated exposure control *Adjustment of mA and/or kV according to patient size (this includes techniques or standardized protocols for targeted exams where dose is matched to indication/reason for exam; i.e. extremities or head) *Use of iterative reconstruction technique DLP: 631 mGy-cm FINDINGS: There is no evidence of acute intracranial hemorrhage or territorial infarction. No abnormal mass effect or midline shift is seen. [place] to white matter differentiation is well preserved. No extra-axial fluid collections are identified. The ventricles are normal in size. There is no abnormal attenuation within the brain parenchyma. The osseous structures and soft tissues are normal. The mastoid air cells and visualized portions of the paranasal sinuses are well aerated. CT/CT head/brain wo con IMPRESSION: No acute intracranial pathology.
--- NOTE | ~2021-08-25 | XR_ITS ---
EXAMINATION: XR CHEST CLINICAL INFORMATION: Altered mental status COMPARISON: Chest x-ray 08/19/2021, 05/06/2021 TECHNIQUE: Frontal view of the chest was obtained. 3:51 PM FINDINGS: Patchy parenchymal airspace opacity at the right lung base is slightly more prominent than seen on prior chest x-ray of 08/19/2021. There are a few small linear opacities at the left lung base at the left mid peripheral lung which are new since prior study of 08/19/2021 is well. No pulmonary vascular congestion. No large pleural effusion. The cardiac and mediastinal contours are unchanged. XR/XR chest 1V IMPRESSION: Slight increase in the opacification of the right lung base and there are new small peripheral lung opacities at the left mid and lower lung new compared to the prior chest x-ray 08/19/2021.
--- NOTE | ~2021-08-25 | CT_ITS ---
EXAMINATION: CT chest wo con. CLINICAL INFORMATION: Reason for Exam r/o pneumonia, r/o pneumothorax COMPARISON: No prior CT available for comparison. TECHNIQUE: Multidetector volumetric CT imaging of the chest was done. Axial MIP volume rendering provided. Sagittal and coronal reformatted images were obtained. This CT examination was performed using dose optimization techniques as appropriate, variously including the following: *Automated exposure control *Adjustment of mA and/or kV according to patient size (this includes techniques or standardized protocols for targeted exams where dose is matched to indication/reason for exam; i.e. extremities or head) *Use of iterative reconstruction technique CONTRAST: Noncontrasted study. DLP: 1694 mGy-cm FINDINGS: ARMED SECURITY OFFICER: LINES/TUBES: Profile Saw Operator reviewed, no lines. LUNGS: Lung parenchyma: There is heterogeneously solid and cystic opacification over the right lower lobe, likely pneumonia, cystic degeneration, there is air-fluid level 1.9 x 1.5 cm. Few other reticulonodular opacities in the right and left upper lobes, probably pneumonia as well. There is pneumatocele right lower lobe 2.1 x 1.5 cm., There is more consolidation involving the smaller area of the left lung base. Lung nodules/masses: There is no suspicious lung mass, 6 mm nodule right upper lobe image 18 series 4, 5 mm nodule left upper lobe image 18 series 4, 7 mm density right upper lobe image 18 series 6. Few other scattered smaller densities present. AIRWAYS: Trachea and bronchi are normal. PLEURA: Very small right pleural effusion obscuring the costophrenic angle. Evaluation for adenopathy is limited due to lack of contrast, anteroposterior fentanyl mediastinal fat. It is probably prominent hilar lymph nodes. MEDIASTINUM AND YULISSA: Evaluation for adenopathy is limited due to lack of contrast, anteroposterior fentanyl mediastinal fat. It is probably prominent hilar lymph nodes. No mediastinal mass. VESSELS: HEART AND PERICARDIUM: Thoracic aorta is normal in size. Heart is normal in size. No pericardial effusion. Pulmonary arteries are normal in size. LOWER NECK, AXILLA: The visualized thyroid gland is unremarkable. No axillary mass or adenopathy. VISUALIZED ABDOMEN: Unremarkable CHEST WALL AND BONES: No chest wall mass. The visualized bony thorax is within normal limits. CT/CT chest wo con IMPRESSION: *Bilateral consolidation with complex air bronchogram and underlying pneumatoceles, possible developing lung abscesses, involving both lung lower lobes right more than left, possible developing abscess 1.9 cm right lower lobe. Evaluation is limited due to lack of contrast. Cannot rule out underlying pathologic process. *There are few scattered subcentimeter lung nodules in the right upper lobe 7 mm or less. *Mediastinal and bilateral hilar lymphadenopathy, poorly visualized due to lack of contrast. Attention to follow-up contrast enhanced CT recommended to better delineate lung possible developing lung abscesses and adenopathy.
--- NOTE | ~2021-08-25 | MR_ITS ---
EXAMINATION: MR CERVICAL SPINE WITHOUT AND WITH CONTRAST MR THORACIC SPINE WITHOUT AND WITH CONTRAST CLINICAL INFORMATION: Leg numbness. Reported drug abuse on prior recent MR lumbar spine indication. Infectious process in the lungs on prior chest CT imaging from 08/26/2021. Septic arthritis and osteomyelitis around the right sacroiliac joint on lumbar CT from 08/21/2021. COMPARISON: MR lumbar spine from 08/27/2021. TECHNIQUE: Multiplanar, multisequence imaging acquired through the cervical and thoracic spine without and with intravenous administration of 5 mL of Gadavist. Significantly limited study with motion artifacts. FINDINGS: CERVICAL SPINE: The marrow is homogeneous in signal and the discs are well hydrated. No signal abnormality is seen within the cervical cord. There is no disc pathology, central canal stenosis, or foraminal narrowing. No epidural collection identified. The craniovertebral junction appears normal. The imaged portions of the brain demonstrate no acute abnormality. The vertebral artery flow-voids are maintained. Small right mastoid effusion partially visualized. The facet joints appear normal. No facet joint effusion is visible. There is edema in the deep left paraspinal musculature spanning from the C4 through the C6 levels. There is an indeterminate area of oblong T2 hyperintensity in the superficial paramedian left trapezius musculature spanning from the C4 through the C5 levels, measuring 3 cm CC by 1.4 cm TV by 0.5 cm AP. There is perceived mild enhancement as well of the soft tissue abnormality. THORACIC SPINE: There is a perceived T2 hyperintense mildly expansile intramedullary lesion within the cord at the T5-T6 level measuring 0.7 cm in size. There is T2 hyperintense signal abnormality within the central aspect of the cord extending from the upper T4 level inferiorly to the lower T7 level. No syrinx is seen. No pathologic intradural enhancement is evident, though assessment is limited with motion artifacts. No abnormal intrathecal flow voids are visible on sagittal T2-weighted imaging. The marrow is homogeneous in signal on T1-weighted imaging. There are mild biconcave deformities at the T6 and T9 levels without marrow edema which are presumably chronic. Superior endplate Schmorl's nodes visible at the T11 and T12 levels. There is no central canal stenosis or foraminal narrowing. No disc protrusions are seen. The conus tip is normal, terminating at the T12-L1 level. No marrow edema identified. There is edema in the paraspinal soft tissues of the [id number] thoracic spine which is nonspecific. Patchy areas of consolidation partially visualized in the lungs but better assessed on prior chest CT imaging. Areas of cavitation are also again visible in the right lower lobe and right upper lobe posteriorly. MR/MR thoracic spine wo/w con IMPRESSION: Limited examination with motion artifacts. CERVICAL SPINE: Edema in the left multifidus deep medial paraspinal musculature spanning from the C4 through the C6 levels of indeterminate etiology. No marrow edema in the adjacent facet joints or facet joint effusion. Superficial 3 cm CC by 1.4 cm TV by 0.5 cm AP enhancing possible intramuscular collection within the left paramedian trapezius musculature spanning from the C4 through the C5 levels. The possibility of an abscess and/or infectious process cannot be ruled out. CT imaging may be useful for further evaluation of the osseous structures. THORACIC SPINE: 1. Perceived 0.7 cm mildly expansile intramedullary lesion within the cord at the T5-T6 level with surrounding cord signal abnormality which may reflect edema. No abnormal enhancement, though assessment is limited by motion. Differential diagnostic considerations would include neoplastic and infectious/inflammatory etiologies. A demyelinating lesion cannot be ruled out but is felt to be less likely. 2. Additional nonspecific edema in the paraspinal tissues of the wor-jd-[id number] thoracic spine. 3. Partially visualized areas of patchy consolidation in the lungs with areas of cavitation, better assessed on prior chest CT imaging. Imaging findings reported to Dr. Mendez at 6:45 PM on 08/30/2021.
--- NOTE | 2021-08-25 08:08 | ECG_ITS ---
Test Reason : overdose Blood Pressure : / mmHG Vent. Rate : 090 BPM Atrial Rate : 090 BPM P-R Int : 156 ms QRS Dur : 082 ms QT Int : 420 ms P-R-T Axes : 090 125 157 degrees QTc Int : 513 ms Poor data quality Suspect limb lead reversal, interpretation assumes no reversal Normal sinus rhythm Lateral infarct , age undetermined Prolonged QT Abnormal ECG When compared with ECG of 25-AUG-2021 15:57, Poor data quality in current ECG precludes serial comparison Referred By: Rudy Coates Electronically Signed By:LISSETTE NOLASCO MD
[2021-08-25 15:05] LABS: Glucose, Whole Blood > 600 mg/dL (60-115)
--- NOTE | 2021-08-25 15:14 | ECG_ITS ---
Test Reason : overdose Blood Pressure : / mmHG Vent. Rate : 090 BPM Atrial Rate : 000 BPM P-R Int : 000 ms QRS Dur : 088 ms QT Int : 418 ms P-R-T Axes : 000 116 178 degrees QTc Int : 511 ms Poor data quality Possible Normal sinus rhythm Right axis deviation Abnormal ECG When compared with ECG of 19-AUG-2021 13:28, Poor data quality in current ECG precludes serial comparison Referred By: Mahsa Davis Electronically Signed By:LISSETTE NOLASCO MD
[2021-08-25] MEDS: 0.9 % Sodium Chloride 1,000 ML 999 ML IV ×2 (15:27→17:10)
[2021-08-25] MEDS: Insulin Regular, Human 100 UNIT/ML 3 ML VIAL 10 UNIT IVPUSH ×2 (15:37→16:26)
--- NOTE | 2021-08-25 16:18 | ED_ITS ---
HPI - General Adult General Chief complaint: ETOH/Substance Use Stated complaint: substance use, HI poc with ems Time Seen by Provider: 08/25/21 15:05 Source: patient Mode of arrival: ambulatory History of Present Illness HPI narrative: 25-year-old female with a past medical history of polysubstance abuse, MRSA bacteremia with prior endocarditis, recent admission to [facility] s/p ventilatory support s/p tracheostomy and reversal, DM with poor compliance with insulin, multiple admissions for DKA & recently left AMA from our facility on 08/22/2021, [place] only responding to name with glucometer reading high. History unobtainable from patient due to acute mental status Onset (ago): hour(s) Related Data Home Medications Medication Instructions Recorded Confirmed No Known Home Meds 08/25/21 08/25/21 Allergies Allergy/AdvReac Type Severity Reaction Status Date / Time amoxicillin Allergy Rash Verified 08/22/21 16:52 azithromycin Allergy Rash Verified 08/22/21 16:52 Review of Systems Review of Systems: ROS unobtainable due to patient's AMS Yes all other systems are reviewed and are negative [facility] Past Medical History Attestation statement: The following information was validated with the patient. Medical History Anxiety Bacteremia Bacteremia due to methicillin susceptible Staphylococcus aureus (MSSA) Cocaine abuse Diabetes mellitus type 1 Endocarditis Heroin abuse Leukocytosis Polysubstance abuse Staphylococcus aureus bacteremia Substance abuse Social History Social History Household Members: Unknown / Unable to assess Household Members Other:: currently living with her boyfriend Housing: Homeless Do you presently have visiting nurse or other home services: No Unable to assess alcohol history related to: Refusing to respond Patient Tobacco Use Status: Tobacco use Unknown Tobacco use type: Cigarette Cigarette Packs Per Day: 1 Cigarettes Per Day: 20.0 Years Smoked: ''since I was 16'' e-Cigarette/Vaping Use: Former Use Second Hand Smoke Exposure: Yes Substance Use Type: Heroin Advance Directives: No Advance Directives Information Provided: No service: No Current occupational status: unemployed Sexual orientation: Straight/Heterosexual Physical Exam ED Vital Signs: Vital Signs - 24 hr 08/25/21 14:55 Temperature 99.1 F Pulse Rate 80 Respiratory Rate 16 Blood Pressure 120/85 Pulse Oximetry 99 BMI result Body Mass Index 24.8 Const General: ill appearing chronically Limitations: altered mental status HENMT Head: Yes normal to inspection and Yes atraumatic Ears: hearing grossly normal bilaterally General nose exam: Normal external nose present Face and sinus: Yes normal facial exam Eyes General: appearance normal, both eyes and all related structures Neck Neck: Yes normal visual inspection and Yes no meningeal signs Resp Effort & Inspection: normal respiratory effort and no respiratory distress Auscultation: clear to auscultation bilaterally Cardio Rate: regular rate Heart sounds: S1 normal heart sound present and S2 normal heart sound present GI Other: G-tube in place to left lower quadrant Palpation (GI): Soft to palpation, nontender, no guarding and not rigid Skin Rashes: no rashes Neuro General: tone normal and no meningeal signs Extrem General: Yes normal to inspection Course Course Course Narrative: - pH is 6.91 > insulin drip and total of 30 mg/kg IVF ordered >> empiric vanc and Zosyn also ordered - leukocytosis of 22.3. H&H stable. Bicarb low at 7.0 & BUN and creatinine elevated to 47 / 2.33 - anion gap of 39, glucose elevated to 1525. Lactic acidosis of 2.8 likely from DKA. Acetone moderate. >Two Needle Machine Operator paged -[id number]--XR chest 1V IMPRESSION: Slight increase in the opacification of the right lung base and there are new small peripheral lung opacities at the left mid and lower lung new compared to the prior chest x-ray 08/19/2021. - COVID-19 and influenza negative -172-- spoke to cork cutter, Dr. Mancini, will change NS to LR. Patient received total of 1 L of NS. Additional IV access secured > insulin drip being initiated at this time. Will also discontinue vancomycin and only give Zosyn. Patient accepted to the ICU Medical Decision Making MDM Narrative Medical decision making narrative: 25-year-old female with a past medical history of polysubstance abuse, MRSA bacteremia with prior endocarditis, recent admission to [facility] s/p ventilatory support s/p tracheostomy and reversal, DM with poor compliance with insulin, multiple admissions for DKA & recently left AMA from our facility on 08/22/2021, [place] only responding to name with glucometer reading high. On exam low-grade temp 99.1 degrees, vital signs otherwise stable, alert, lethargic/uncooperative/combative with exam, concern for DKA vs hyperglycemia and other metabolic abnormalities. Low concern for infectious etiology or severe sepsis at this time Plan: EKG, labs, lactic, blood cultures, IVF, IV insulin, anticipated admission Lab Data Result diagrams: 08/25/21 16:27 08/25/21 16:27 Labs: Lab Results 08/25/21 08/25/21 08/25/21 Range/Units 15:01 16:17 16:27 WBC 22.3 H (4.8-10.8) X10*3/uL RBC 3.57 L (4.20-5.50) X10*6/uL Hgb 10.3 L (12.0-16.0) g/dl Hct 36.8 L (37.0-47.0) % MCV 103.1 H D (80.0-98.0) fL MCH 28.9 (27.0-33.0) pg MCHC 28.0 L (31.0-35.0) g/dl RDW 15.5 (11.0-16.0) % Plt Count 289 D (160-400) X10*3/uL MPV 10.9 (9.4-12.3) fL Immature Gran % (Auto) 1.5 H (0.0-0.4) % Neut % (Auto) 93.7 H (45-73) % Lymph % (Auto) 2.8 L (20-40) % [place] % (Auto) 1.8 L (2-11) % Eos % (Auto) 0.0 (0-4) % Baso % (Auto) 0.2 (0-2) % Lymph # (Auto) 0.6 L (1.2-4.9) X10*3/uL [place] # (Auto) 0.4 (0.1-1.2) X10*3/uL Eos # (Auto) 0.0 (0.0-0.4) X10*3/uL Baso # (Auto) 0.1 (0.0-0.2) X10*3/uL Abs Immat Gran (auto) 0.34 H (0.00-0.03) X10*3/uL Absolute Neuts (auto) 20.9 H (2.0-8.3) x10*3/uL Absolute Nucleated RBC 0.000 (0.0-0.012) X10*3/uL Nucleated RBC % (auto) 0.0 (0.0-0.2) /100WBC Smear Tech's Comments VERIFIED VBG pH (7.32-7.43) VBG pCO2 mmHg VBG pO2 mmHg VBG HCO3 (22-26) mmol/L VBG O2 Saturation % VBG Base Excess mmol/L Sodium (135-145) mmol/L Potassium (3.3-5.1) mmol/L Chloride (96-108) mmol/L Carbon Dioxide (22-29) mmol/L Anion Gap (12-20) BUN (9-16) mg/dL Creatinine (0.5-1.4) mg/dL Estim Creat Clear Calc Estimated GFR POC Glucose > 600 H* > 600 H* (60-115) mg/dL Random Glucose (60-115) mg/dL Lactic Acid (0.5-2.0) mmol/L Calcium (8.4-10.2) mg/dL Phosphorus (2.7-4.5) mg/dL Magnesium (1.6-2.6) mg/dL Total Bilirubin (0.0-1.0) mg/dL Direct Bilirubin (0.0-0.5) mg/dL AST (5-31) U/L ALT (0-31) U/L Alkaline Phosphatase (39-117) U/L Troponin I High Sens (<3.5-17.0) ng/L C-Reactive Protein (< or = 0.50) mg/dL Total Protein (6.5-8.0) g/dL Albumin (3.5-5.0) g/dL Lipase (8-78) U/L Salicylates (15-30) mg/dL Acetaminophen (<30) mcg/mL Acetone, Qual (Negative) COVID-19 (BRENDA) (Negative) COVID-19 Clin Com Influenza Type A (JESÚS) (Negative) Influenza Type B (JESÚS) (Negative) Influenza A & B Note 08/25/21 08/25/21 08/25/21 Range/Units 16:27 16:27 16:27 WBC (4.8-10.8) X10*3/uL RBC (4.20-5.50) X10*6/uL Hgb (12.0-16.0) g/dl Hct (37.0-47.0) % MCV (80.0-98.0) fL MCH (27.0-33.0) pg MCHC (31.0-35.0) g/dl RDW (11.0-16.0) % Plt Count (160-400) X10*3/uL MPV (9.4-12.3) fL Immature Gran % (Auto) (0.0-0.4) % Neut % (Auto) (45-73) % Lymph % (Auto) (20-40) % [place] % (Auto) (2-11) % Eos % (Auto) (0-4) % Baso % (Auto) (0-2) % Lymph # (Auto) (1.2-4.9) X10*3/uL [place] # (Auto) (0.1-1.2) X10*3/uL Eos # (Auto) (0.0-0.4) X10*3/uL Baso # (Auto) (0.0-0.2) X10*3/uL Abs Immat Gran (auto) (0.00-0.03) X10*3/uL Absolute Neuts (auto) (2.0-8.3) x10*3/uL Absolute Nucleated RBC (0.0-0.012) X10*3/uL Nucleated RBC % (auto) (0.0-0.2) /100WBC Smear Tech's Comments VBG pH (7.32-7.43) VBG pCO2 mmHg VBG pO2 mmHg VBG HCO3 (22-26) mmol/L VBG O2 Saturation % VBG Base Excess mmol/L Sodium 133 L (135-145) mmol/L Potassium 3.3 D (3.3-5.1) mmol/L Chloride 90 L (96-108) mmol/L Carbon Dioxide 7 L* D (22-29) mmol/L Anion Gap 39 H (12-20) BUN 47 H D (9-16) mg/dL Creatinine 2.33 H (0.5-1.4) mg/dL Estim Creat Clear Calc 33.7 Estimated GFR 26 POC Glucose (60-115) mg/dL Random Glucose 1525 H* D (60-115) mg/dL Lactic Acid 2.8 H* (0.5-2.0) mmol/L Calcium 8.9 D (8.4-10.2) mg/dL Phosphorus 9.2 H (2.7-4.5) mg/dL Magnesium 2.8 H (1.6-2.6) mg/dL Total Bilirubin 0.2 (0.0-1.0) mg/dL Direct Bilirubin 0.2 (0.0-0.5) mg/dL AST 24 (5-31) U/L ALT 26 (0-31) U/L Alkaline Phosphatase 133 H D (39-117) U/L Troponin I High Sens < 3.5 (<3.5-17.0) ng/L C-Reactive Protein 2.09 H (< or = 0.50) mg/dL Total Protein 7.2 (6.5-8.0) g/dL Albumin 4.0 (3.5-5.0) g/dL Lipase 27 (8-78) U/L Salicylates < 5.0 L (15-30) mg/dL Acetaminophen < 1 (<30) mcg/mL Acetone, Qual (Negative) COVID-19 (BRENDA) (Negative) COVID-19 Clin Com Influenza Type A (JESÚS) (Negative) Influenza Type B (JESÚS) (Negative) Influenza A & B Note 08/25/21 08/25/21 08/25/21 Range/Units 16:27 16:29 16:29 WBC (4.8-10.8) X10*3/uL RBC (4.20-5.50) X10*6/uL Hgb (12.0-16.0) g/dl Hct (37.0-47.0) % MCV (80.0-98.0) fL MCH (27.0-33.0) pg MCHC (31.0-35.0) g/dl RDW (11.0-16.0) % Plt Count (160-400) X10*3/uL MPV (9.4-12.3) fL Immature Gran % (Auto) (0.0-0.4) % Neut % (Auto) (45-73) % Lymph % (Auto) (20-40) % [place] % (Auto) (2-11) % Eos % (Auto) (0-4) % Baso % (Auto) (0-2) % Lymph # (Auto) (1.2-4.9) X10*3/uL [place] # (Auto) (0.1-1.2) X10*3/uL Eos # (Auto) (0.0-0.4) X10*3/uL Baso # (Auto) (0.0-0.2) X10*3/uL Abs Immat Gran (auto) (0.00-0.03) X10*3/uL Absolute Neuts (auto) (2.0-8.3) x10*3/uL Absolute Nucleated RBC (0.0-0.012) X10*3/uL Nucleated RBC % (auto) (0.0-0.2) /100WBC Smear Tech's Comments VBG pH (7.32-7.43) VBG pCO2 mmHg VBG pO2 mmHg VBG HCO3 (22-26) mmol/L VBG O2 Saturation % VBG Base Excess mmol/L Sodium (135-145) mmol/L Potassium (3.3-5.1) mmol/L Chloride (96-108) mmol/L Carbon Dioxide (22-29) mmol/L Anion Gap (12-20) BUN (9-16) mg/dL Creatinine (0.5-1.4) mg/dL Estim Creat Clear Calc Estimated GFR POC Glucose (60-115) mg/dL Random Glucose (60-115) mg/dL Lactic Acid (0.5-2.0) mmol/L Calcium (8.4-10.2) mg/dL Phosphorus (2.7-4.5) mg/dL Magnesium (1.6-2.6) mg/dL Total Bilirubin (0.0-1.0) mg/dL Direct Bilirubin (0.0-0.5) mg/dL AST (5-31) U/L ALT (0-31) U/L Alkaline Phosphatase (39-117) U/L Troponin I High Sens (<3.5-17.0) ng/L C-Reactive Protein (< or = 0.50) mg/dL Total Protein (6.5-8.0) g/dL Albumin (3.5-5.0) g/dL Lipase (8-78) U/L Salicylates (15-30) mg/dL Acetaminophen (<30) mcg/mL Acetone, Qual Moderate H (Negative) COVID-19 (BRENDA) Negative (Negative) COVID-19 Clin Com See Note Influenza Type A (JESÚS) Negative (Negative) Influenza Type B (JESÚS) Negative (Negative) Influenza A & B Note See Note 08/25/21 Range/Units 16:32 WBC (4.8-10.8) X10*3/uL RBC (4.20-5.50) X10*6/uL Hgb (12.0-16.0) g/dl Hct (37.0-47.0) % MCV (80.0-98.0) fL MCH (27.0-33.0) pg MCHC (31.0-35.0) g/dl RDW (11.0-16.0) % Plt Count (160-400) X10*3/uL MPV (9.4-12.3) fL Immature Gran % (Auto) (0.0-0.4) % Neut % (Auto) (45-73) % Lymph % (Auto) (20-40) % [place] % (Auto) (2-11) % Eos % (Auto) (0-4) % Baso % (Auto) (0-2) % Lymph # (Auto) (1.2-4.9) X10*3/uL [place] # (Auto) (0.1-1.2) X10*3/uL Eos # (Auto) (0.0-0.4) X10*3/uL Baso # (Auto) (0.0-0.2) X10*3/uL Abs Immat Gran (auto) (0.00-0.03) X10*3/uL Absolute Neuts (auto) (2.0-8.3) x10*3/uL Absolute Nucleated RBC (0.0-0.012) X10*3/uL Nucleated RBC % (auto) (0.0-0.2) /100WBC Smear Tech's Comments VBG pH 6.91 L* (7.32-7.43) VBG pCO2 32 mmHg VBG pO2 54 mmHg VBG HCO3 6 L (22-26) mmol/L VBG O2 Saturation 67.0 % VBG Base Excess -25.1 mmol/L Sodium (135-145) mmol/L Potassium (3.3-5.1) mmol/L Chloride (96-108) mmol/L Carbon Dioxide (22-29) mmol/L Anion Gap (12-20) BUN (9-16) mg/dL Creatinine (0.5-1.4) mg/dL Estim Creat Clear Calc Estimated GFR POC Glucose (60-115) mg/dL Random Glucose (60-115) mg/dL Lactic Acid (0.5-2.0) mmol/L Calcium (8.4-10.2) mg/dL Phosphorus (2.7-4.5) mg/dL Magnesium (1.6-2.6) mg/dL Total Bilirubin (0.0-1.0) mg/dL Direct Bilirubin (0.0-0.5) mg/dL AST (5-31) U/L ALT (0-31) U/L Alkaline Phosphatase (39-117) U/L Troponin I High Sens (<3.5-17.0) ng/L C-Reactive Protein (< or = 0.50) mg/dL Total Protein (6.5-8.0) g/dL Albumin (3.5-5.0) g/dL Lipase (8-78) U/L Salicylates (15-30) mg/dL Acetaminophen (<30) mcg/mL Acetone, Qual (Negative) COVID-19 (BRENDA) (Negative) COVID-19 Clin Com Influenza Type A (JESÚS) (Negative) Influenza Type B (JESÚS) (Negative) Influenza A & B Note Critical Care Time Critical Care Time Critical Care Time: Yes Total Critical Care Time: 60 Attestation: I have personally provided critical care time exclusive of time spent on separately billable procedures. Time includes review of lab data, radiology results, discussion with consultants, and monitoring for potential decompensation. Intervention performed as documented. Discharge Plan Discharge Clinical Impression: DKA (diabetic ketoacidosis), Pneumonia Patient Disposition: Admitted As Inpatient
[2021-08-25 16:33] LABS: Glucose, Whole Blood > 600 mg/dL (60-115)
[2021-08-25 16:40] LABS: Basophils Absolute Auto 0.1 X10*3/uL (0.0-0.2); Basophils Percent Auto 0.2 % (0-2); Hematocrit 36.8 % (37.0-47.0); Hemoglobin 10.3 g/dl (12.0-16.0); Imm Gran Abs Auto 0.34 X10*3/uL (0.00-0.03); Imm Gran Pct Auto 1.5 % (0.0-0.4); Lymphocytes Absolute Auto 0.6 X10*3/uL (1.2-4.9); Lymphocytes Percent Auto 2.8 % (20-40); MANUAL DIFF FLAG SCAN; Mean Corpuscular Hemoglobin 28.9 pg (27.0-33.0); Mean Corpuscular Volume 103.1 fL (80.0-98.0); Mean Platelet Volume 10.9 fL (9.4-12.3); Monocytes Absolute Auto 0.4 X10*3/uL (0.1-1.2); Monocytes Percent Auto 1.8 % (2-11); Neutrophils Absolute Auto 20.9 x10*3/uL (2.0-8.3); Neutrophils Percent Auto 93.7 % (45-73); Platelet Count 289 X10*3/uL (160-400); Red Blood Count 3.57 X10*6/uL (4.20-5.50); Red Cell Distribution Width 15.5 % (11.0-16.0); SCAN SMEAR FLAG 1; White Blood Count 22.3 X10*3/uL (4.8-10.8)
[2021-08-25 16:41] LABS: Venous Blood Gas Refer to POC result
[2021-08-25 16:41] LABS: VBG Base Excess -25.1 mmol/L; VBG HCO3 6 mmol/L (22-26); VBG pCO2 32 mmHg; VBG pH 6.91 (7.32-7.43); VBG pO2 54 mmHg
--- NOTE | 2021-08-25 16:43 | PHA.MEDREC ---
Pharmacy Consult ? Medication Reconciliation Pharmacy has completed the medication reconciliation. Pt not responding to me at bedside, based on claim history and past notes no known home meds.
[2021-08-25 16:51] LABS: Acetone, serum QL Moderate (Negative)
[2021-08-25] MEDS: Piperacillin Sodium/Tazobactam 3.375 GM in 0.9 % Sodium Chloride 50 ML IV (16:52)
[2021-08-25 16:57] LABS: SLIDE REVIEW VERIFIED
[2021-08-25 16:58] LABS: COVID-19 Test Negative (Negative); IDNOW Serial# 16C4AD1C; Influenza A Negative (Negative); Influenza B2 Negative (Negative)
--- NOTE | 2021-08-25 16:58 | PC.NURSE ---
pt requiring iv insulin, discussion held with provider about better iv access than 22g in left foot. plan for md to look for ej or discuss tlc.
[2021-08-25 17:03] LABS: Troponin-I High Sensitivity < 3.5 ng/L (<3.5-17.0)
[2021-08-25 17:07] LABS: Lactic Acid 2.8 mmol/L (0.5-2.0)
[2021-08-25 17:08] LABS: Acetaminophen LAB < 1 mcg/mL (<30); Alanine Aminotransferase 26 U/L (0-31); Alkaline Phosphatase 133 U/L (39-117); Anion Gap 39 (12-20); Aspartate Amino Transferase 24 U/L (5-31); Bilirubin Direct 0.2 mg/dL (0.0-0.5); Bilirubin Total 0.2 mg/dL (0.0-1.0); Blood Urea Nitrogen 47 mg/dL (9-16); C Reactive Protein 2.09 mg/dL (< or = 0.50); Calcium 8.9 mg/dL (8.4-10.2); Carbon Dioxide 7 mmol/L (22-29); Chloride 90 mmol/L (96-108); Creatinine Clr Calc Pharmacy 33.7; Estimated Glomerular Filt Rate 26; Glucose Random 1525 mg/dL (60-115); Lipase 27 U/L (8-78); Magnesium 2.8 mg/dL (1.6-2.6); Phosphorus 9.2 mg/dL (2.7-4.5); Potassium 3.3 mmol/L (3.3-5.1); Salicylate < 5.0 mg/dL (15-30); Sodium 133 mmol/L (135-145); Total Protein 7.2 g/dL (6.5-8.0)
[2021-08-25 17:26] LABS: Erythrocyte Sedimentation Rate 9 MM/HR (0-20)
[2021-08-25 17:26] LABS: Cancel Lactic Acid Canceled
[2021-08-25] MEDS: Insulin Regular/NS 100 UNIT/100 ML PLAST..BAG 20 UNIT IVCONT (17:31)
[2021-08-25] MEDS: Lactated Ringers 1,000 ML 999 ML IV ×2 (17:31→22:11)
--- NOTE | 2021-08-25 17:39 | PC.NURSE ---
US IV PLACED 20G R AC
--- NOTE | 2021-08-25 18:02 | PC.NURSE ---
soft restraints applied at 1800
--- NOTE | 2021-08-25 18:39 | PM.CCHP ---
History of Present Illness Date of Service: 08/25/21 Attending physician on admission: Bora Mancini Chief Complaint: DKA Ms. Morgan is being admitted to ICU this evening with DKA. The patient is a 25-year-old female with a past medical history of diabetes w poor insulin compliance with numerous admissions for DKA, anxiety, IV drug use, polysubstance abuse including heroin, cocaine, amphetamine, tobacco abuse, and mult episodes of Staph aureus bacteremia, both MSSA and MRSA.? (I?ve been unable to find conclusive evidence that she?s actually had echocardiographically confirmed endocarditis.? See further comment below)? She?s had mult visits to this hospital, most commonly leaving AMA.? She?s had mult admissions to this ICU for mx of DKA, and has previously required tracheal intubation for agitation control. She had a prolonged admission to [facility] earlier this year that included tracheostomy and PEG placement.? Since been decanulated.? Last admission here was this past week 08/19, again for DKA.? Was in the ICU for two days, then discharged to medical floor on 08/20, left the hospital AMA on 08/22. HISTORY OF PRESENT ILLNESS:? The patient was [place]IB[place] to the ED this [place] only responding to name.? At the scene, glucometer reading high. ? Brought into the ED semi-obtunded, not interactive. Vital signs in the ED showed heart rate 80, blood pressure 120/85, respiratory rate 16, sat 99% on room air, and temperature 99.1 degrees.? Exam in the ED otherwise notable for being chronically ill-appearing, normal respiratory effort, G-tube present, multiple wounds throughout extremities and torso. Labs in the ED were notable for white count 22, hemoglobin 10.3, sodium 133, potassium 3.3, bicarb 7, anion gap 39, BUN/creatinine 47/2.3, glucose 1525, albumin 4.0, lipase 27, lactic acid 2.8.? Venous blood gas showed 6.91/32/-25. IV access was difficult.? A 22g was started in her foot, and then a 20 gauge was obtained in her arm. ?She was started on IV fluids and a and an insulin drip.? She was given Zosyn and vancomycin. I saw her in the ED about 5pm.? She looks acutely on chronically ill, cachectic.? Semi obtunded.? Non interactive to my commands.? Flailing her arms around.? Eyes half open.? Mult wounds all over her body.? Old tracheostomy scar, about ? healed.? Large midline laparotomy scar.? G tube in place.? ? old right chest tube(s) scars.? Heart rate 93, respiratory rate 16, blood pressure 98/51, sat 99% on room air.? Muc membranes very dry.? Chest clear with normal expiratory phase.? Heart rate and rhythm regular, with normal-sounding S1 and S2, with no murmur or gallops. ?Abdomen benign.? No edema. Last ECHOCARDIOGRAM was done on 04/17. ?The echo was fairly normal, EF 55-60%, with no vegetations noted.? On that date, the right heart was normal; the inferior vena cava was dilated with no inspiratory collapse. IMPRESSION: 1. ?Multi substance abuse. 2. Severe protein calorie malnutrition. 3. DKA, presumably secondary to insulin noncompliance.? Needs IV fluid resuscitation and an insulin drip.? Not sure how we?re going to follow her labs.? She may well need a central line. 4. Acute kidney injury.? 2? hypovolemia. 5. ?Pseudo hyponatremia. 6. ID:? Can?t say whether her leukocytosis is the usual leukocytosis seen with DKA or is a sign of real infection.? Cultures have been drawn.? She?s been started on broad-spectrum antibiotics.? Pretty much any time Maíra comes in, she has to be presumed to be bacteremic until proven otherwise.? Therefore she needs to be treated at least with vancomycin. 7. Neuro/psych.? In previous visits, she?s been variously treated with Precedex, Seroquel, and Zyprexa.? According to previous iterations of her Med Rec, she was taking Seroquel at home. 8. IV access.? This unfortunate 25 yo woman is going to in the not too distant future bec of lack of IV access.? It is imperative to minimize phlebotomies and preserve her veins to the extent possible.? Her longevity depends on that. 9. Elevated lactic acid.? Can?t rule out sepsis, but either way, the lactic acid in this patient is pretty much irrelevant, and we?re not going to waste a phlebotomy on it. Further management pending repeat Labs. Critical care time: 90 min. [facility] Past Medical History Medical History Anxiety Bacteremia Bacteremia due to methicillin susceptible Staphylococcus aureus (MSSA) Cocaine abuse Diabetes mellitus type 1 Endocarditis Heroin abuse Leukocytosis Polysubstance abuse Staphylococcus aureus bacteremia Substance abuse Social History Social History Household Members: Unknown / Unable to assess Household Members Other:: currently living with her boyfriend Housing: Homeless Do you presently have visiting nurse or other home services: No Unable to assess alcohol history related to: Refusing to respond Patient Tobacco Use Status: Tobacco use Unknown Tobacco use type: Cigarette Cigarette Packs Per Day: 1 Cigarettes Per Day: 20.0 Years Smoked: ''since I was 16'' e-Cigarette/Vaping Use: Former Use Second Hand Smoke Exposure: Yes Substance Use Type: Heroin Advance Directives: No Advance Directives Information Provided: No service: No Current occupational status: unemployed Sexual orientation: Straight/Heterosexual Meds Allergies Allergy/AdvReac Type Severity Reaction Status Date / Time amoxicillin Allergy Rash Verified 08/22/21 16:52 azithromycin Allergy Rash Verified 08/22/21 16:52 Active Medications: Current Medications Insulin Human Regular (Myxredlin) 100 unit in 100 mls @ 0 mls/hr IVCONT .Q0M MIKKI; Protocol Last Admin: 08/25/21 17:31 Dose: 20 units/hr, 20 mls/hr Documented by: Lactated Ringer's (Lr) 1,000 mls @ 999 mls/hr IV .Q1H1M MIKKI Stop: 08/25/21 19:30 Last Admin: 08/25/21 17:31 Dose: 999 mls/hr Documented by: Pharmacy Consult (Consult Rx Perform Med Rec) 1 each MISCELLANE ONCE PRN PRN Reason: Consult order Home Medications Medication Instructions Recorded Confirmed Last Taken Type No Known Home Meds 08/25/21 08/25/21 Unknown History Physical Exam Vital Signs: Vital Signs: Last Vital Signs Temp 99.1 F 08/25/21 14:55 Pulse 94 08/25/21 18:00 Resp 18 08/25/21 18:00 BP 95/48 L 08/25/21 18:00 Pulse Ox 96 08/25/21 18:00 BMI result Body Mass Index 24.8 Results Labs CBC and Chem 7: 08/25/21 16:27 08/25/21 16:27 Labs: Laboratory Results - last 24 hr 08/25/21 08/25/21 08/25/21 15:01 16:17 16:27 MCV 103.1 H D MCH 28.9 MCHC 28.0 L RDW 15.5 Plt Count 289 D MPV 10.9 Immature Gran % (Auto) 1.5 H Neut % (Auto) 93.7 H Lymph % (Auto) 2.8 L [place] % (Auto) 1.8 L Eos % (Auto) 0.0 Baso % (Auto) 0.2 Lymph # (Auto) 0.6 L [place] # (Auto) 0.4 Eos # (Auto) 0.0 Baso # (Auto) 0.1 Abs Immat Gran (auto) 0.34 H Absolute Neuts (auto) 20.9 H Absolute Nucleated RBC 0.000 Nucleated RBC % (auto) 0.0 Smear Tech's Comments VERIFIED ESR VBG pH VBG pCO2 VBG pO2 VBG HCO3 VBG O2 Saturation VBG Base Excess Anion Gap Estim Creat Clear Calc Estimated GFR POC Glucose > 600 H* > 600 H* Random Glucose Lactic Acid Calcium Phosphorus Magnesium Total Bilirubin Direct Bilirubin AST ALT Alkaline Phosphatase Troponin I High Sens C-Reactive Protein Total Protein Albumin Lipase Salicylates Acetaminophen Acetone, Qual COVID-19 (BRENDA) COVID-19 Clin Com Influenza Type A (JESÚS) Influenza Type B (JESÚS) Influenza A & B Note 08/25/21 08/25/21 08/25/21 16:27 16:27 16:27 MCV MCH MCHC RDW Plt Count MPV Immature Gran % (Auto) Neut % (Auto) Lymph % (Auto) [place] % (Auto) Eos % (Auto) Baso % (Auto) Lymph # (Auto) [place] # (Auto) Eos # (Auto) Baso # (Auto) Abs Immat Gran (auto) Absolute Neuts (auto) Absolute Nucleated RBC Nucleated RBC % (auto) Smear Tech's Comments ESR VBG pH VBG pCO2 VBG pO2 VBG HCO3 VBG O2 Saturation VBG Base Excess Anion Gap 39 H Estim Creat Clear Calc 33.7 Estimated GFR 26 POC Glucose Random Glucose 1525 H* D Lactic Acid 2.8 H* Calcium 8.9 D Phosphorus 9.2 H Magnesium 2.8 H Total Bilirubin 0.2 Direct Bilirubin 0.2 AST 24 ALT 26 Alkaline Phosphatase 133 H D Troponin I High Sens < 3.5 C-Reactive Protein 2.09 H Total Protein 7.2 Albumin 4.0 Lipase 27 Salicylates < 5.0 L Acetaminophen < 1 Acetone, Qual COVID-19 (BRENDA) COVID-19 Clin Com Influenza Type A (JESÚS) Influenza Type B (JESÚS) Influenza A & B Note 08/25/21 08/25/21 08/25/21 16:27 16:27 16:29 MCV MCH MCHC RDW Plt Count MPV Immature Gran % (Auto) Neut % (Auto) Lymph % (Auto) [place] % (Auto) Eos % (Auto) Baso % (Auto) Lymph # (Auto) [place] # (Auto) Eos # (Auto) Baso # (Auto) Abs Immat Gran (auto) Absolute Neuts (auto) Absolute Nucleated RBC Nucleated RBC % (auto) Smear Tech's Comments ESR 9 VBG pH VBG pCO2 VBG pO2 VBG HCO3 VBG O2 Saturation VBG Base Excess Anion Gap Estim Creat Clear Calc Estimated GFR POC Glucose Random Glucose Lactic Acid Calcium Phosphorus Magnesium Total Bilirubin Direct Bilirubin AST ALT Alkaline Phosphatase Troponin I High Sens C-Reactive Protein Total Protein Albumin Lipase Salicylates Acetaminophen Acetone, Qual Moderate H COVID-19 (BRENDA) COVID-19 Clin Com Influenza Type A (JESÚS) Negative Influenza Type B (JESÚS) Negative Influenza A & B Note See Note 08/25/21 08/25/21 16:29 16:32 MCV MCH MCHC RDW Plt Count MPV Immature Gran % (Auto) Neut % (Auto) Lymph % (Auto) [place] % (Auto) Eos % (Auto) Baso % (Auto) Lymph # (Auto) [place] # (Auto) Eos # (Auto) Baso # (Auto) Abs Immat Gran (auto) Absolute Neuts (auto) Absolute Nucleated RBC Nucleated RBC % (auto) Smear Tech's Comments ESR VBG pH 6.91 L* VBG pCO2 32 VBG pO2 54 VBG HCO3 6 L VBG O2 Saturation 67.0 VBG Base Excess -25.1 Anion Gap Estim Creat Clear Calc Estimated GFR POC Glucose Random Glucose Lactic Acid Calcium Phosphorus Magnesium Total Bilirubin Direct Bilirubin AST ALT Alkaline Phosphatase Troponin I High Sens C-Reactive Protein Total Protein Albumin Lipase Salicylates Acetaminophen Acetone, Qual COVID-19 (BRENDA) Negative COVID-19 Clin Com See Note Influenza Type A (JESÚS) Influenza Type B (JESÚS) Influenza A & B Note Imaging Radiologist's Impressions: Impressions Chest X-Ray 08/25/21 15:58 IMPRESSION: Slight increase in the opacification of the right lung base and there are new small peripheral lung opacities at the left mid and lower lung new compared to the prior chest x-ray 08/19/2021. Critical Care Time Critical Care Time (minutes): 90
--- NOTE | 2021-08-25 18:41 | PHA.PROG ---
Admission Date/Time: Indication: Weight in k.807 kg Adjusted body weight in Kg: Mclean body weight in Kg: Obesity Dosing Indication % IBW: Serum Creatinine - Last 168 Hours 08/25/21 16:27 Creatinine 2.33 H Estimated CrCl and GFR - Last 168 Hours 08/25/21 16:27 Estim Creat Clear Calc 33.7 Estimated GFR 26 Vancomycin Loading Dose: 1500 Current Vancomycin Dosing Regimen: Vancomycin Monitoring using AUC goal of 400 - 600 range with trough as surrogate marker: Date and Time for next Vancomycin Level to be drawn: Pharmacist Comments on Vancomycin Plan: 1500 mg load, 1000 mg q24h, predicted AUC 400 trough 12.7 after 48 hours Vancomycin dosing will take advantage of Gtxh as a clinical decision support tool that uses Bayesian modeling to calculate individual patient's pharmacokinetic parameters and forecast the patient's drug concentration time course with the target goal AUC 24 range of 400 - 600 mg/L/hr.
[2021-08-25 18:52] LABS: Glucose, Whole Blood > 600 mg/dL (60-115)
[2021-08-25 18:52] LABS: Glucose, Whole Blood > 600 mg/dL (60-115)
[2021-08-25] MEDS: Potassium Chloride Packet 20 MEQ PACKET 40 MEQ G-TUBE (19:11)
--- NOTE | 2021-08-25 19:47 | P.HPCC_ITS ---
[facility] Past Medical History Medical History Anxiety Bacteremia Bacteremia due to methicillin susceptible Staphylococcus aureus (MSSA) Cocaine abuse Diabetes mellitus type 1 Endocarditis Heroin abuse Leukocytosis Polysubstance abuse Staphylococcus aureus bacteremia Substance abuse Social History Social History Household Members: Unknown / Unable to assess Household Members Other:: currently living with her boyfriend Housing: Homeless Do you presently have visiting nurse or other home services: No Unable to assess alcohol history related to: Refusing to respond Patient Tobacco Use Status: Tobacco use Unknown Tobacco use type: Cigarette Cigarette Packs Per Day: 1 Cigarettes Per Day: 20.0 Years Smoked: ''since I was 16'' e-Cigarette/Vaping Use: Former Use Second Hand Smoke Exposure: Yes Substance Use Type: Heroin Advance Directives: No Advance Directives Information Provided: No service: No Current occupational status: unemployed Sexual orientation: Straight/Heterosexual Meds Allergies Allergy/AdvReac Type Severity Reaction Status Date / Time amoxicillin Allergy Rash Verified 08/22/21 16:52 azithromycin Allergy Rash Verified 08/22/21 16:52 Active Medications: Current Medications Heparin Sodium (Porcine) (Heparin Sodium,Porcine 5,000 Unit/Ml Vial) 5,000 unit SUBCUT Q12H [facility] Insulin Human Regular (Myxredlin) 100 unit in 100 mls @ 0 mls/hr IVCONT .Q0M [facility]; Protocol Last Admin: 08/25/21 17:31 Dose: 20 units/hr, 20 mls/hr Documented by: Vancomycin HCl 1,500 mg/ (Sodium Chloride) 500 mls @ 333.333 mls/hr IV ONCE ONE Stop: 08/25/21 20:06 Vancomycin HCl 1,000 mg/ (Sodium Chloride) 270 mls @ 270 mls/hr IV Q24H [facility] Pharmacy Consult (Consult Rx Perform Med Rec) 1 each MISCELLANE ONCE PRN PRN Reason: Consult order Pharmacy Consult (Consult Rx Vancomycin Dosing) 1 each MISCELLANE DAILY PRN PRN Reason: Consult order Pharmacy Consult (Consult Rx Anticoag Dosing) 1 each MISCELLANE DAILY PRN; Protocol PRN Reason: Consult order Home Medications Medication Instructions Recorded Confirmed Last Taken Type No Known Home Meds 08/25/21 08/25/21 Unknown History Physical Exam Vital Signs: Vital Signs: Last Vital Signs Temp 99.1 F 08/25/21 14:55 Pulse 96 08/25/21 19:31 Resp 16 08/25/21 19:31 BP 100/52 L 08/25/21 19:31 Pulse Ox 100 08/25/21 19:31 BMI result Body Mass Index 24.8 Results Labs CBC and Chem 7: 08/25/21 16:27 08/25/21 16:27 Labs: Laboratory Results - last 24 hr 08/25/21 08/25/21 08/25/21 15:01 16:17 16:27 MCV 103.1 H D MCH 28.9 MCHC 28.0 L RDW 15.5 Plt Count 289 D MPV 10.9 Immature Gran % (Auto) 1.5 H Neut % (Auto) 93.7 H Lymph % (Auto) 2.8 L [place] % (Auto) 1.8 L Eos % (Auto) 0.0 Baso % (Auto) 0.2 Lymph # (Auto) 0.6 L [place] # (Auto) 0.4 Eos # (Auto) 0.0 Baso # (Auto) 0.1 Abs Immat Gran (auto) 0.34 H Absolute Neuts (auto) 20.9 H Absolute Nucleated RBC 0.000 Nucleated RBC % (auto) 0.0 Smear Tech's Comments VERIFIED ESR VBG pH VBG pCO2 VBG pO2 VBG HCO3 VBG O2 Saturation VBG Base Excess Anion Gap Estim Creat Clear Calc Estimated GFR POC Glucose > 600 H* > 600 H* Random Glucose Lactic Acid Calcium Phosphorus Magnesium Total Bilirubin Direct Bilirubin AST ALT Alkaline Phosphatase Troponin I High Sens C-Reactive Protein Total Protein Albumin Lipase Salicylates Acetaminophen Acetone, Qual COVID-19 (BRENDA) COVID-19 Clin Com Influenza Type A (JESÚS) Influenza Type B (JESÚS) Influenza A & B Note 08/25/21 08/25/21 08/25/21 16:27 16:27 16:27 MCV MCH MCHC RDW Plt Count MPV Immature Gran % (Auto) Neut % (Auto) Lymph % (Auto) [place] % (Auto) Eos % (Auto) Baso % (Auto) Lymph # (Auto) [place] # (Auto) Eos # (Auto) Baso # (Auto) Abs Immat Gran (auto) Absolute Neuts (auto) Absolute Nucleated RBC Nucleated RBC % (auto) Smear Tech's Comments ESR VBG pH VBG pCO2 VBG pO2 VBG HCO3 VBG O2 Saturation VBG Base Excess Anion Gap 39 H Estim Creat Clear Calc 33.7 Estimated GFR 26 POC Glucose Random Glucose 1525 H* D Lactic Acid 2.8 H* Calcium 8.9 D Phosphorus 9.2 H Magnesium 2.8 H Total Bilirubin 0.2 Direct Bilirubin 0.2 AST 24 ALT 26 Alkaline Phosphatase 133 H D Troponin I High Sens < 3.5 C-Reactive Protein 2.09 H Total Protein 7.2 Albumin 4.0 Lipase 27 Salicylates < 5.0 L Acetaminophen < 1 Acetone, Qual COVID-19 (BRENDA) COVID-19 Clin Com Influenza Type A (JESÚS) Influenza Type B (JESÚS) Influenza A & B Note 08/25/21 08/25/21 08/25/21 16:27 16:27 16:29 MCV MCH MCHC RDW Plt Count MPV Immature Gran % (Auto) Neut % (Auto) Lymph % (Auto) [place] % (Auto) Eos % (Auto) Baso % (Auto) Lymph # (Auto) [place] # (Auto) Eos # (Auto) Baso # (Auto) Abs Immat Gran (auto) Absolute Neuts (auto) Absolute Nucleated RBC Nucleated RBC % (auto) Smear Tech's Comments ESR 9 VBG pH VBG pCO2 VBG pO2 VBG HCO3 VBG O2 Saturation VBG Base Excess Anion Gap Estim Creat Clear Calc Estimated GFR POC Glucose Random Glucose Lactic Acid Calcium Phosphorus Magnesium Total Bilirubin Direct Bilirubin AST ALT Alkaline Phosphatase Troponin I High Sens C-Reactive Protein Total Protein Albumin Lipase Salicylates Acetaminophen Acetone, Qual Moderate H COVID-19 (BRENDA) COVID-19 Clin Com Influenza Type A (JESÚS) Negative Influenza Type B (JESÚS) Negative Influenza A & B Note See Note 08/25/21 08/25/21 08/25/21 16:29 16:32 18:43 MCV MCH MCHC RDW Plt Count MPV Immature Gran % (Auto) Neut % (Auto) Lymph % (Auto) [place] % (Auto) Eos % (Auto) Baso % (Auto) Lymph # (Auto) [place] # (Auto) Eos # (Auto) Baso # (Auto) Abs Immat Gran (auto) Absolute Neuts (auto) Absolute Nucleated RBC Nucleated RBC % (auto) Smear Tech's Comments ESR VBG pH 6.91 L* VBG pCO2 32 VBG pO2 54 VBG HCO3 6 L VBG O2 Saturation 67.0 VBG Base Excess -25.1 Anion Gap Estim Creat Clear Calc Estimated GFR POC Glucose > 600 H* Random Glucose Lactic Acid Calcium Phosphorus Magnesium Total Bilirubin Direct Bilirubin AST ALT Alkaline Phosphatase Troponin I High Sens C-Reactive Protein Total Protein Albumin Lipase Salicylates Acetaminophen Acetone, Qual COVID-19 (BRENDA) Negative COVID-19 Clin Com See Note Influenza Type A (JESÚS) Influenza Type B (JESÚS) Influenza A & B Note 08/25/21 18:45 MCV MCH MCHC RDW Plt Count MPV Immature Gran % (Auto) Neut % (Auto) Lymph % (Auto) [place] % (Auto) Eos % (Auto) Baso % (Auto) Lymph # (Auto) [place] # (Auto) Eos # (Auto) Baso # (Auto) Abs Immat Gran (auto) Absolute Neuts (auto) Absolute Nucleated RBC Nucleated RBC % (auto) Smear Tech's Comments ESR VBG pH VBG pCO2 VBG pO2 VBG HCO3 VBG O2 Saturation VBG Base Excess Anion Gap Estim Creat Clear Calc Estimated GFR POC Glucose > 600 H* Random Glucose Lactic Acid Calcium Phosphorus Magnesium Total Bilirubin Direct Bilirubin AST ALT Alkaline Phosphatase Troponin I High Sens C-Reactive Protein Total Protein Albumin Lipase Salicylates Acetaminophen Acetone, Qual COVID-19 (BRENDA) COVID-19 Clin Com Influenza Type A (JESÚS) Influenza Type B (JESÚS) Influenza A & B Note Imaging Radiologist's Impressions: Impressions Chest X-Ray 08/25/21 15:58 IMPRESSION: Slight increase in the opacification of the right lung base and there are new small peripheral lung opacities at the left mid and lower lung new compared to the prior chest x-ray 08/19/2021.
[2021-08-25 20:05] LABS: Glucose, Whole Blood > 600 mg/dL (60-115)
--- NOTE | 2021-08-25 20:07 | PC.NURSE ---
pt g tube no residual. no discomfort with administ meds, flush with 60 cc. pt right upper arm was not infusing the insulin when this rn arrived, poc high, iv redressed and flushed. positional. left foot iv benign. infusing LR. pt yells out in a whinning voice for water and when she doesnt get what she is yelling for she pulls gown, cardiac leads. pt has not pulled at the g tube. pt has skin issues whole body old scabbs, buttocks red and pressure ulcer disclosed to rn and icu provider. pt sat remain at 100% on room air. Junky cough nonproductive. pt taken over on the monitor nsr no ectopy noted. pt is alert and ariented x3 and is able to express her needs.
[2021-08-25] MEDS: dexmedeTOMIDidine HCL/NS 400 MCG/100 ML INFUS..BTL 16.95 MCG IVCONT (20:31)
[2021-08-25] MEDS: fentaNYL citrate/PF 100 MCG/2 ML VIAL 50 MCG IVPUSH ×2 (20:45→21:00)
[2021-08-25 21:06] LABS: Alanine Aminotransferase 24 U/L (0-31); Albumin Level 3.7 g/dL (3.5-5.0); Alkaline Phosphatase 117 U/L (39-117); Anion Gap 30 (12-20); Aspartate Amino Transferase 31 U/L (5-31); Bilirubin Total 0.2 mg/dL (0.0-1.0); Blood Urea Nitrogen 43 mg/dL (9-16); Carbon Dioxide 11 mmol/L (22-29); Chloride 103 mmol/L (96-108); Creatinine Clr Calc Pharmacy 41.1; Estimated Glomerular Filt Rate 33; Glucose Random 934 mg/dL (60-115); Potassium 4.6 mmol/L (3.3-5.1); Sodium 139 mmol/L (135-145)
[2021-08-25] MEDS: propofoL 200 MG/20 ML VIAL 75 MG IVPUSH (21:30)
--- NOTE | 2021-08-25 21:56 | W.PM.CCHP ---
Procedures Date of Service Date of Service: 08/25/21 Central Line Placement Unable to obtain consent for the patient does not seem to understand the explanation given for the need of this procedure..A quick time-out was made for clarification and proper patient identification, patient was positioned, landmarks were identified, US used to locate a large compressible IJ. The left neck was widely prepped and draped in a full sterile fashion. Ultrasound was used to locate again the left IJ, the vein was cannulated on the 1st pass with an 18 gauge thin needle, dark nonpulsatile blood return was obtained. The wire was threaded, a small incision was made at its base and dilator inserted. A triple-lumen central venous catheter was advanced into the vein up to the hub without problems, wired was removed. Ports had good blood return and flushed x3. The catheter was secured with 3 sutures at 3 sites, a Biopatch and dry sterile dressing were applied.Post procedure chest x-ray showed the line to be in good position without pneumothorax. No bleeding or complications noted.: Central Line Comments: The placement of these was attempted initially on the right side, after successfully placing the needle, I could not thread the wire for the patient moved in afraid that the needle came out of the vein, the procedure was aborted, re-tried twice and finally completely stopped on the right side 4 I did not want to cause any complications or harm. Subsequently the above-mentioned placement of the left IJ was attempted and had a single pass, it was successful. Given that the patient would not remain still, initially gave her 100 mg of fentanyl IV into different doses, the patient continued to move; therefore a total 75 mcg of propofol was administered into separate doses Consent for Procedure: Emergent-no informed consent obtained Time out performed: Yes Sterile Technique Used: Yes Patient placed on monitor/pulse ox: Yes prep: mask, gown and gloves Central line prep: Chlorhexidine scrub Local anesthesia used: lidocaine 2% Amount of anesthesia used (ml): 5 Ultrasound used for placement: Yes Central line lumen inserted: triple Post procedure: sutured in place, good blood return, all ports aspirated, flushed, capped and sterile dressing applied Post procedure x-ray: tip of catheter in good position and no pneumothorax seen Patient tolerated procedure: well and no complications Complications: none
[2021-08-25] MEDS: Heparin Sodium,Porcine 5,000 UNIT/ML VIAL 5000 UNIT SUBCUT (22:11)
[2021-08-25] MEDS: vancomycin HCL 1,500 MG in 0.9 % Sodium Chloride 500 ML 333.33 MG IV (22:13)
[2021-08-25 22:16] LABS: Glucose, Whole Blood 598 mg/dL (60-115)
[2021-08-25] MEDS: Lactated Ringers 1,000 ML 100 ML IVCONT (22:47)
[2021-08-25 22:58] LABS: Appearance Urine CLEAR; Color Urine YELLOW; Glucose Urine UA >=1000 MG/DL (NEG); Leukocyte Esterase Urine NEG (NEG); Nitrite Urine NEG (NEG); PH 5.5 (5.0-8.0); Specific Gravity - Urine 1.015 (1.005-1.025); UACC Culture Trigger NO; Urine Blood 2+ (NEG); Urine Ketones 15 MG/DL (NEG); Urine Protein TRACE MG/DL (NEG-TRACE)
[2021-08-25] MEDS: Insulin Regular/NS 100 UNIT/100 ML PLAST..BAG 10 UNIT IVCONT (23:00)
[2021-08-25 23:10] LABS: Glucose, Whole Blood 434 mg/dL (60-115)
[2021-08-25 23:11] LABS: Epith (RTE) Cast 0-2 /LPF; Mucus Urine 2+ /LPF; RBC Urine 0-2 /HPF (0); Renal Epithelial Cells Urine 3+ /LPF; Squamous Epithelial Cell Urine TRACE /LPF; WBC Urine 0-2 /HPF (0-4)
[2021-08-25 23:13] LABS: Amphetamine Screen Urine Not Detected (Not Detect); Barbiturates, Urine Not Detected (Not Detect); Benzodiazepines Screen Urine Not Detected (Not Detect); Cannabinoid Screen Urine Not Detected (Not Detect); Cocaine Screen Urine POSITIVE (Not Detect); Fentanyl, urine POSITIVE (Not Detect); Opiate Screen Urine POSITIVE (Not Detect); Phencyclidine Screen Urine Not Detected (Not Detect)
[2021-08-25 23:41] LABS: Alanine Aminotransferase 16 U/L (0-31); Albumin Level 2.9 g/dL (3.5-5.0); Alkaline Phosphatase 85 U/L (39-117); Anion Gap 17 (12-20); Aspartate Amino Transferase 19 U/L (5-31); Bilirubin Total 0.2 mg/dL (0.0-1.0); Blood Urea Nitrogen 37 mg/dL (9-16); Calcium 8.3 mg/dL (8.4-10.2); Carbon Dioxide 21 mmol/L (22-29); Chloride 109 mmol/L (96-108); Estimated Glomerular Filt Rate 51; Glucose Random 454 mg/dL (60-115); Potassium 3.5 mmol/L (3.3-5.1); Sodium 143 mmol/L (135-145); Total Protein 5.2 g/dL (6.5-8.0)
[2021-08-26] VITALS (25 sets, daily range): BP systolic 74–125; BP diastolic 24–69; PULSE 67–87; RESP 13–33; TEMP 36.3–37.7; O2SAT 91–100; BMI 18.4; BMI 18.6; BMI 20.4
--- NOTE | 2021-08-26 | ECG_ITS ---
Test Reason : st elevation Blood Pressure : / mmHG Vent. Rate : 077 BPM Atrial Rate : 077 BPM P-R Int : 156 ms QRS Dur : 078 ms QT Int : 356 ms P-R-T Axes : 059 058 035 degrees QTc Int : 402 ms Normal sinus rhythm Possible Acute pericarditis Abnormal ECG When compared with ECG of 25-AUG-2021 15:58, QRS axis Shifted left Criteria for Lateral infarct are no longer Present ST elevation now present in Lateral leads QT has shortened Referred By: Bora Mancini Electronically Signed By:LISSETTE NOLASCO MD
[2021-08-26 00:05] LABS: Glucose, Whole Blood 345 mg/dL (60-115)
[2021-08-26 01:06] LABS: Glucose, Whole Blood 256 mg/dL (60-115)
[2021-08-26] MEDS: dexmedeTOMIDidine HCL/NS 400 MCG/100 ML INFUS..BTL 13.56 MCG IVCONT (01:13)
[2021-08-26] MEDS: Dextrose 5 % and 0.45 % NaCl 1,000 ML 80 ML IVCONT (01:14)
[2021-08-26 02:17] LABS: Glucose, Whole Blood 157 mg/dL (60-115)
[2021-08-26 02:47] LABS: Alanine Aminotransferase 20 U/L (0-31); Albumin Level 3.1 g/dL (3.5-5.0); Alkaline Phosphatase 86 U/L (39-117); Anion Gap 12 (12-20); Aspartate Amino Transferase 21 U/L (5-31); Bilirubin Total 0.2 mg/dL (0.0-1.0); Blood Urea Nitrogen 32 mg/dL (9-16); Calcium 8.7 mg/dL (8.4-10.2); Carbon Dioxide 27 mmol/L (22-29); Chloride 110 mmol/L (96-108); Creatinine Clr Calc Pharmacy 69.6; Estimated Glomerular Filt Rate 60; Glucose Random 189 mg/dL (60-115); Potassium 3.7 mmol/L (3.3-5.1); Sodium 145 mmol/L (135-145); Total Protein 5.4 g/dL (6.5-8.0)
--- NOTE | 2021-08-26 02:55 | PC.NURSE ---
PT TO ICU AT 1950 ALERT, RESTLESS, PULLING ON IV'S, MONITOR WIRES, BP CUFF ETC. YELLING OUT. SRIKANTH PAC AT BEDSIDE INSULIN DRIP INFUSING...SEE POC FLOWSHEET. POC ON ARRIVAL WAS >600. PT STARTED ON PRECEDEX TO SEDATE AND THEN TLC INSERTED BY SRIKANTH PAC. PT HAD TO BE RESTRAINED AT THE WRISTS DUE TO HER PULLING ON LINES BUT RESTRAINTS OFF AFTER PROCEDURE. PT RECEIVED FENTANYL 50 MG IV X2 AND THEN A TOTAL OF 75 MG OF PROPOFOL PUSH AT 50 MG IVP AND THEN 25 MG IVP. PT CALM AND SEDATE SINCE COMPLETION OF PROCEDURE AT 2200. BP SOFT, LOW 70'S SYSTOLIC. PRECEDEX OFF BUT THEN TURNED BACK ON AT 0.4 MG PT WAS THRASHING AROUND IN THE BED. pac AT BEDSIDE TO ASSESS PT. CHEM PROFILE DRAWN AND REVIEWED BY SRIKANTH PAC.
[2021-08-26 03:16] LABS: Glucose, Whole Blood 140 mg/dL (60-115)
[2021-08-26 04:23] LABS: Glucose, Whole Blood 83 mg/dL (60-115)
--- NOTE | 2021-08-26 04:40 | PC.NURSE ---
POC 83. Insulin gtt off. 0200 profile showed a gap of 12. pt moans, calls out for mommy. does not follow commands. precedex remains at 0.8 mcg. pt pulls off monitor wires and hospital gown at times. just uncooperative!
[2021-08-26 05:13] LABS: Glucose, Whole Blood 29 mg/dL (60-115)
[2021-08-26 05:15] LABS: VBG Base Excess 2.2 mmol/L; VBG HCO3 26 mmol/L (22-26); VBG pCO2 39 mmHg; VBG pH 7.43 (7.32-7.43); VBG pO2 32 mmHg
[2021-08-26] MEDS: Dextrose 50 % 25 GM/50 ML SYRINGE IVPUSH (05:15)
[2021-08-26] MEDS: Pantoprazole Sodium 40 MG/10 ML VIAL IVPUSH (05:30)
[2021-08-26 05:34] LABS: Glucose, Whole Blood 159 mg/dL (60-115)
[2021-08-26 05:35] LABS: Venous Blood Gas Refer to POC result
[2021-08-26 05:58] LABS: Alanine Aminotransferase 18 U/L (0-31); Alkaline Phosphatase 87 U/L (39-117); Anion Gap 10 (12-20); Aspartate Amino Transferase 21 U/L (5-31); Bilirubin Total 0.2 mg/dL (0.0-1.0); Blood Urea Nitrogen 31 mg/dL (9-16); Calcium 8.6 mg/dL (8.4-10.2); Carbon Dioxide 28 mmol/L (22-29); Chloride 110 mmol/L (96-108); Estimated Glomerular Filt Rate > 60; Glucose Random 42 mg/dL (60-115); Potassium 3.9 mmol/L (3.3-5.1); Sodium 144 mmol/L (135-145); Total Protein 5.3 g/dL (6.5-8.0)
[2021-08-26 06:28] LABS: Glucose, Whole Blood 153 mg/dL (60-115)
[2021-08-26 07:35] LABS: Glucose, Whole Blood 36 mg/dL (60-115)
[2021-08-26 07:35] LABS: Glucose, Whole Blood > 600 mg/dL (60-115)
--- NOTE | 2021-08-26 08:02 | PHA.PROG ---
Admission Date/Time: August 25, 2021 18:41 Indication: Weight in k.6 kg Adjusted body weight in Kg: Lynch body weight in Kg: Obesity Dosing Indication % IBW: Serum Creatinine - Last 168 Hours 08/25/21 08/25/21 08/25/21 16:27 20:26 23:09 Creatinine 2.33 H 1.91 H 1.29 08/26/21 08/26/21 02:14 05:30 Creatinine 1.13 0.94 Estimated CrCl and GFR - Last 168 Hours 08/25/21 08/25/21 08/25/21 16:27 20:26 23:09 Estim Creat Clear Calc 33.7 41.1 61.0 Estimated GFR 26 33 51 08/26/21 08/26/21 02:14 05:30 Estim Creat Clear Calc 69.6 74.0 Estimated GFR 60 > 60 Vancomycin Loading Dose: Current Vancomycin Dosing Regimen: 1000 MG Q24H Vancomycin Monitoring using AUC goal of 400 - 600 range with trough as surrogate marker: Patients renal function has improved significantly. I am increasing the regimen to 750 mg q12h. This predicts a AUC of 415 and a trough of 12.9. Trough is set for 08/27 @ 1800. will continue to monitor and adjust as needed. Date and Time for next Vancomycin Level to be drawn: 08/27 @ 1800 Pharmacist Comments on Vancomycin Plan: Vancomycin dosing will take advantage of doggylootX as a clinical decision support tool that uses Bayesian modeling to calculate individual patient's pharmacokinetic parameters and forecast the patient's drug concentration time course with the target goal AUC 24 range of 400 - 600 mg/L/hr.
[2021-08-26] MEDS: vancomycin HCL 750 MG in 0.9 % Sodium Chloride 250 ML 265 MG IV ×2 (09:20→22:26)
[2021-08-26] MEDS: Insulin Glargine,Hum.rec.anlog 100 UNIT/ML 10 ML VIAL 20 UNIT SUBCUT ×2 (09:21→13:09)
[2021-08-26] MEDS: Heparin Sodium,Porcine 5,000 UNIT/ML VIAL 5000 UNIT SUBCUT ×2 (09:24→22:20)
[2021-08-26 09:55] LABS: Glucose, Whole Blood 203 mg/dL (60-115)
--- NOTE | 2021-08-26 10:46 | MHC.CLN ---
RE: CONSULT PT IS SEVERELY MALNOURISHED PT WITH SEVERELY DEPLETED SUBCUTANEOUS FAT AND MUSCLE MASS, CHRONIC POOR PO INTAKE R/T POLYSUBSTANCE ABUSE AND HOMELESSNESS ALONG WITH UNCONTROLLED DM AND NONCOMPLIANCE WITH DM MEDICATIONS. PT WITH MULTIPLE ADMISSIONS FOR DKA AND S/P AMA 08/22 DIET RX: NPO BUT WILL BE UTILIZING GTUBE RECOMMEND GLUCERNA AT MAX GOAL RATE 65ML/HR WITH 120CC FREE WATER FLUSHES Q 8 HRS TO PROVIDE 1560KCALS (30.8KCALS/KG), 65G PROTEIN (1.3G/KG), 1691 TOTAL ML FROM FORMULA AND FLUSHES (33.4ML/KG) START FORMULA AT 20ML/HR AND INCREASE BY 10ML Q 4 HRS UNTIL MAX GOAL IS ACHIEVED MONITOR TOLERANCE, RESIDUALS AND LYTES TF APPROPRIATE TO PROMOTE WOUND HEALING SEE ALSO FULL CLINICAL NUTRITION ASSESSMENT
[2021-08-26 12:32] LABS: Glucose, Whole Blood 199 mg/dL (60-115)
[2021-08-26 12:59] LABS: Mean Corpuscular HGB Conc 33.9 g/dl (31.0-35.0); Mean Corpuscular Hemoglobin 28.8 pg (27.0-33.0); Mean Corpuscular Volume 84.9 fL (80.0-98.0); Mean Platelet Volume 9.7 fL (9.4-12.3); Platelet Count 160 X10*3/uL (160-400); Red Blood Count 2.71 X10*6/uL (4.20-5.50); Red Cell Distribution Width 15.1 % (11.0-16.0)
[2021-08-26] MEDS: Insulin Lispro 100 UNIT/ML 3 ML VIAL SUBCUT ×2 (13:09→22:20)
[2021-08-26 13:17] LABS: Hemoglobin 7.8 g/dl (12.0-16.0)
--- NOTE | 2021-08-26 13:21 | MHC.CM.PN ---
Pt currently sedated and restrained in ICU d/t attempts at pulling lines and agitated behavior. Pt is well known to and [facility] with frequent admissions for DKA in the setting of severe substance abuse and non compliance with DM management. Per review of EMR and discussion with ICU Care team, pt was [place] unresponsive in a park and brought to [facility] for treatment. Pt recently left [facility] AMA last week after an admission for the same. Prior to that, pt had a >30 day admission to [facility] where she was vented/trached/pegged and had a large open abdominal surgical site from a perforated bowel. Pt denies family or friends to assist her, possibly resides with a boyfriend/significant other. No PCP on file. Call placed to [facility] on [facility] in [place] where staff confirmed that pt has several scripts for DM medications/testing supplies that have never been picked up. Pt has not picked up meds since 2020 per pharmacy. Most recent scripts were sent over in the beginning of August from a Dr. Prabhakar (? from [facility]) and not picked up. Pt had a psych eval during her last [facility] stay where she was again found to have capacity to make her own, albeit detrimental decisions. In keeping with her pattern of behavior, once she is feeling improved, she will likely leave AMA. Pt cannot receive VNA services d/t her lack of PCP, active substance abuse, longstanding hx of non compliance and housing instability. Pt has a report with Janice from [facility] and it may be helpful for a consult once pt is more responsive. CM to follow for assistance with d/c planning.
[2021-08-26 13:31] LABS: Blood Urea Nitrogen 26 mg/dL (9-16); Calcium 8.4 mg/dL (8.4-10.2); Creatinine Clr Calc Pharmacy 74.4; Estimated Glomerular Filt Rate > 60; Glucose Random 227 mg/dL (60-115); Magnesium 1.5 mg/dL (1.6-2.6); Phosphorus 2.5 mg/dL (2.7-4.5)
--- NOTE | 2021-08-26 13:36 | MHC.RECOVRN ---
Met with pt in 260 to provide support. Pt in bed, awake, easily agitated, difficult to redirect at times. Pt requesting multiple beverages, becoming angry with staff for not providing beverages instantly. When asked about events leading up to presentation, pt states I don't remember anything. Will return to discuss substance use at a later time. T/w available as needed.
[2021-08-26 13:37] LABS: Anion Gap 11 (12-20); Carbon Dioxide 25 mmol/L (22-29); Chloride 107 mmol/L (96-108); Sodium 139 mmol/L (135-145)
[2021-08-26] MEDS: dexmedeTOMIDidine HCL/NS 400 MCG/100 ML INFUS..BTL 8.48 MCG IVCONT (15:12)
[2021-08-26] MEDS: Piperacillin Sodium/Tazobactam 4.5 GM in 0.9 % Sodium Chloride 100 ML IV ×2 (15:52→23:45)
[2021-08-26 15:55] LABS: Glucose, Whole Blood 91 mg/dL (60-115)
[2021-08-26] MEDS: Sodium,Potassium Phosphates POWD.PACK 2 PACKET G-TUBE ×2 (19:15→23:45)
[2021-08-26] MEDS: LORazepam 1 MG TABLET 2 MG PO (19:16)
[2021-08-26] MEDS: Magnesium Sulfate/H2O 2 GM/50 ML PIGGYBACK IV (19:20)
[2021-08-26 19:48] LABS: Glucose, Whole Blood 151 mg/dL (60-115)
--- NOTE | 2021-08-26 20:04 | P.PNCC_ITS ---
Subjective Subjective Date of Service: 08/26/21 Interval History: Clinical Precedent to this date:?Patient is a 25-year-old female with history of diabetes and poor insulin compliance who has been admitted several times to this hospital and others mainly due to DKA, polysubstance abuse including heroin cocaine, tobacco abuse, MRSA bacteremia and most recently endocarditis, she had been admitted for almost 2 months a [facility] where she ended up having a tracheostomy and PEG placement since then tracheostomy cannula was removed.? She had been admitted to this hospital with DKA last week and left AMA.? This time once again the patient came back minimally responsive with blood sugar over 1500, treated with IV insulin and admitted to the ICU, hydrated with fluids, central line placed on the left side of her neck due to poor access.? She did have to be put on Precedex overnight and has been off it for more than 8 hours.? Patient does appear to have complex consolidations with possible developing abscesses noted on CT, she was placed on vancomycin and Zosyn. Subjective:? Today pt as usual is complaining of multiple body aches and pains particularly the lower extremities claiming that she cannot move them, she is being able to eat a full meal without any problems. ?She does have urinary retention after a Sanchez catheter was removed and she required straight catheterization tonight.? Patient otherwise has intermittent cough, denies sputum, no fever, no chest pain, no abdominal pain, nausea or vomiting. Focused Review of systems:? As above, all others were reviewed and are negative. Objective VS: Blood pressure 94/64, heart rate 81, respirations 23, O2 sat 99% on room air. General:? Alert oriented x3 no acute distress Skin:? Intact, no lesions or rash HEENT:? Normocephalic, atraumatic, extraocular movements intact, neck is supple, no lymphadenopathy.? Buccal mucosa dry.? Throat midline.? Scarring of previous tracheostomy noted. Cardiac:? Clear S1-S2, no murmurs rubs or gallops. Pulmonary:? Clear to auscultation, no wheezes, rales or rhonchi. Abdomen:? Protuberant, positive bowel sounds in all 4 quadrants.? Soft, G-tube in place at the left upper quadrant.? Clean, dry, intact surroundings. Musculoskeletal:? Patient is moving bilateral upper extremities, lower extremities have limited range of motion upon request, patient claiming that she cannot move it however when distracted she was able to move her left leg, there is no edema, no asymmetry.? Abrasions noted on the knees.? No cogwheeling noted on passive range of motion of the lower extremities at the major joints. ? Neurologic:? As above, no focal deficits. Vascular:? 2+ pulses upper and lower extremities distally. SIGNIFICANT LABORATORY DATA:? White count 12.0 (22), hemoglobin 7.8, hematocrit 23.0, platelets 160.? Sodium 139, potassium 4.0, chloride 1 7, carbon dioxide 25, anion gap 11, BUN 26, creatinine 0.93, phosphorus 2.5, magnesium 1.5 REVIEW OF IMAGES: ?Chest CT showing complex consolidations and possible developing abscess on both lungs. ASSESSMENT AND PLAN: 1. Resolved DKA 2. Resolve metabolic acidosis 3. Resolved acute kidney injury with minimal residual based on BUN to creatinine ratio all due to dehydration 4. Ongoing polysubstance abuse 5. Resolved pseudo hyponatremia in the setting of DKA 6. Lower extremity weakness will need further workup 7. Hypomagnesemia status post replacement 8. Macrocytic anemia, most likely of chronic disease, fecal ?occult blood test ordered 9. Bilateral consolidation with complex air bronchogram and possible lung abscess right more than left. 10. Hypophosphatemia, on replacement 11. Chronic and severe protein calorie malnutrition syndrome 12. Chronic hypotension Patient is currently stable, her DKA is completely resolved, she is no longer acidotic, she was started on Lantus today and her sugars have been stable, the patient is eating a full meal.? We suggest to encourage further oral hydration.? In regards to her lower extremity weakness and reported debilitation, I can not say if this is real 4 I did see her moving her extremities when she was distracted particularly the left 1.? Furthermore she complained of pain in a earlier throughout the right lower extremity which I did full passive range of motion at the major joints and she did no complaint once when distracted. The above was reported to the hospitalist Dr Tate.? At this point the patient is ready to transfer to next level of care ([facility]) . Of note even though there is no clear source of infection, the patient did come in with a white count of 22.3 which is likely to be due to DKA, she has been given vancomycin/Zosyn for there was a concern that the patient may be bacteremic, particularly given the concern of complex consolidation and possible developing lung abscess. ?I will discuss this with the hospitalist , Infectious Disease consult may be required. ?Although it does not have to be emergent, I did order right lower extremity x-rays of the tibia, fibula and knee? Will discuss the possibility of a lumbar MRI given the in urinary retention or if thi s continues. GI PROPHYLAXIS:? IV ppi DVT PROPHYLAXIS:? Heparin Critical care time used for critical evaluation of this patient, diagnosis, treatment and coordination of care, review her records and documentation TOTAL CRITICAL CARE TIME 75 MIN Patient's care was discussed in detail with Dr. Mancini.? He is aware of all the above as well as the plan of care for this patient.? Critical Care Time (minutes): 75 Physical Exam Vital Signs: Vital Signs: Last Vital Signs Temp 97.4 F 08/26/21 17:05 Pulse 81 08/26/21 19:00 Resp 23 H 08/26/21 19:00 BP 94/64 08/26/21 19:00 Pulse Ox 99 08/26/21 19:00 BMI result Body Mass Index 20.4 Objective Data Labs CBC & Chem 7: 08/27/21 06:09 08/27/21 06:09 Labs: Laboratory Results - last 24 hr 08/25/21 08/25/21 08/25/21 15:01 16:17 16:18 WBC RBC Hgb Hct MCV MCH MCHC RDW Plt Count MPV Absolute Nucleated RBC Nucleated RBC % (auto) VBG pH VBG pCO2 VBG pO2 VBG HCO3 VBG O2 Saturation VBG Base Excess Sodium Potassium Chloride Carbon Dioxide Anion Gap BUN Creatinine Estim Creat Clear Calc Estimated GFR POC Glucose > 600 H* > 600 H* > 600 H* Random Glucose Calcium Phosphorus Magnesium Total Bilirubin AST ALT Alkaline Phosphatase Total Protein Albumin Urine Color Urine Appearance Urine pH Ur Specific [place] Urine Protein Urine Glucose (UA) Urine Ketones Urine Blood Urine Nitrite Ur Leukocyte Esterase Urine RBC Urine WBC Ur Squamous Epith Cells Ur Renal Epithelial Cell Urine Bacteria Epithelial Casts Hyaline Casts Urine Mucus Urine Opiates Screen Urine Fentanyl Screen Ur Barbiturates Screen Ur Phencyclidine Scrn Ur Amphetamines Screen U Benzodiazepines Scrn Urine Cocaine Screen U Marijuana (THC) Screen 08/25/21 08/25/21 08/25/21 16:32 20:02 20:26 WBC RBC Hgb Hct MCV MCH MCHC RDW Plt Count MPV Absolute Nucleated RBC Nucleated RBC % (auto) VBG pH 6.91 L* VBG pCO2 32 VBG pO2 54 VBG HCO3 6 L VBG O2 Saturation 67.0 VBG Base Excess -25.1 Sodium 139 Potassium 4.6 D Chloride 103 Carbon Dioxide 11 L Anion Gap 30 H BUN 43 H Creatinine 1.91 H Estim Creat Clear Calc 41.1 Estimated GFR 33 POC Glucose > 600 H* Random Glucose 934 H* D Calcium 9.0 Phosphorus Magnesium Total Bilirubin 0.2 AST 31 ALT 24 Alkaline Phosphatase 117 Total Protein 7.0 Albumin 3.7 Urine Color Urine Appearance Urine pH Ur Specific [place] Urine Protein Urine Glucose (UA) Urine Ketones Urine Blood Urine Nitrite Ur Leukocyte Esterase Urine RBC Urine WBC Ur Squamous Epith Cells Ur Renal Epithelial Cell Urine Bacteria Epithelial Casts Hyaline Casts Urine Mucus Urine Opiates Screen Urine Fentanyl Screen Ur Barbiturates Screen Ur Phencyclidine Scrn Ur Amphetamines Screen U Benzodiazepines Scrn Urine Cocaine Screen U Marijuana (THC) Screen 08/25/21 08/25/21 08/25/21 22:11 22:30 22:30 WBC RBC Hgb Hct MCV MCH MCHC RDW Plt Count MPV Absolute Nucleated RBC Nucleated RBC % (auto) VBG pH VBG pCO2 VBG pO2 VBG HCO3 VBG O2 Saturation VBG Base Excess Sodium Potassium Chloride Carbon Dioxide Anion Gap BUN Creatinine Estim Creat Clear Calc Estimated GFR POC Glucose 598 H* Random Glucose Calcium Phosphorus Magnesium Total Bilirubin AST ALT Alkaline Phosphatase Total Protein Albumin Urine Color YELLOW Urine Appearance CLEAR Urine pH 5.5 Ur Specific [place] 1.015 Urine Protein TRACE Urine Glucose (UA) >=1000 H Urine Ketones 15 Urine Blood 2+ H Urine Nitrite NEG Ur Leukocyte Esterase NEG Urine RBC 0-2 Urine WBC 0-2 Ur Squamous Epith Cells TRACE Ur Renal Epithelial Cell 3+ Urine Bacteria NONE Epithelial Casts 0-2 Hyaline Casts 1-4 Urine Mucus 2+ Urine Opiates Screen POSITIVE H Urine Fentanyl Screen POSITIVE H Ur Barbiturates Screen Not Detected Ur Phencyclidine Scrn Not Detected Ur Amphetamines Screen Not Detected U Benzodiazepines Scrn Not Detected Urine Cocaine Screen POSITIVE H U Marijuana (THC) Screen Not Detected 08/25/21 08/25/21 08/26/21 23:06 23:09 00:00 WBC RBC Hgb Hct MCV MCH MCHC RDW Plt Count MPV Absolute Nucleated RBC Nucleated RBC % (auto) VBG pH VBG pCO2 VBG pO2 VBG HCO3 VBG O2 Saturation VBG Base Excess Sodium 143 Potassium 3.5 D Chloride 109 H Carbon Dioxide 21 L Anion Gap 17 BUN 37 H Creatinine 1.29 Estim Creat Clear Calc 61.0 Estimated GFR 51 POC Glucose 434 H* 345 H Random Glucose 454 H* D Calcium 8.3 L D Phosphorus Magnesium Total Bilirubin 0.2 AST 19 ALT 16 Alkaline Phosphatase 85 D Total Protein 5.2 L D Albumin 2.9 L D Urine Color Urine Appearance Urine pH Ur Specific [place] Urine Protein Urine Glucose (UA) Urine Ketones Urine Blood Urine Nitrite Ur Leukocyte Esterase Urine RBC Urine WBC Ur Squamous Epith Cells Ur Renal Epithelial Cell Urine Bacteria Epithelial Casts Hyaline Casts Urine Mucus Urine Opiates Screen Urine Fentanyl Screen Ur Barbiturates Screen Ur Phencyclidine Scrn Ur Amphetamines Screen U Benzodiazepines Scrn Urine Cocaine Screen U Marijuana (THC) Screen 08/26/21 08/26/21 08/26/21 01:01 02:14 02:14 WBC RBC Hgb Hct MCV MCH MCHC RDW Plt Count MPV Absolute Nucleated RBC Nucleated RBC % (auto) VBG pH VBG pCO2 VBG pO2 VBG HCO3 VBG O2 Saturation VBG Base Excess Sodium 145 Potassium 3.7 Chloride 110 H Carbon Dioxide 27 Anion Gap 12 BUN 32 H Creatinine 1.13 Estim Creat Clear Calc 69.6 Estimated GFR 60 POC Glucose 256 H 157 H Random Glucose 189 H Calcium 8.7 Phosphorus Magnesium Total Bilirubin 0.2 AST 21 ALT 20 Alkaline Phosphatase 86 Total Protein 5.4 L Albumin 3.1 L Urine Color Urine Appearance Urine pH Ur Specific [place] Urine Protein Urine Glucose (UA) Urine Ketones Urine Blood Urine Nitrite Ur Leukocyte Esterase Urine RBC Urine WBC Ur Squamous Epith Cells Ur Renal Epithelial Cell Urine Bacteria Epithelial Casts Hyaline Casts Urine Mucus Urine Opiates Screen Urine Fentanyl Screen Ur Barbiturates Screen Ur Phencyclidine Scrn Ur Amphetamines Screen U Benzodiazepines Scrn Urine Cocaine Screen U Marijuana (THC) Screen 08/26/21 08/26/21 08/26/21 03:12 04:09 05:08 WBC RBC Hgb Hct MCV MCH MCHC RDW Plt Count MPV Absolute Nucleated RBC Nucleated RBC % (auto) VBG pH 7.43 VBG pCO2 39 VBG pO2 32 VBG HCO3 26 VBG O2 Saturation 54.0 VBG Base Excess 2.2 Sodium Potassium Chloride Carbon Dioxide Anion Gap BUN Creatinine Estim Creat Clear Calc Estimated GFR POC Glucose 140 H 83 Random Glucose Calcium Phosphorus Magnesium Total Bilirubin AST ALT Alkaline Phosphatase Total Protein Albumin Urine Color Urine Appearance Urine pH Ur Specific [place] Urine Protein Urine Glucose (UA) Urine Ketones Urine Blood Urine Nitrite Ur Leukocyte Esterase Urine RBC Urine WBC Ur Squamous Epith Cells Ur Renal Epithelial Cell Urine Bacteria Epithelial Casts Hyaline Casts Urine Mucus Urine Opiates Screen Urine Fentanyl Screen Ur Barbiturates Screen Ur Phencyclidine Scrn Ur Amphetamines Screen U Benzodiazepines Scrn Urine Cocaine Screen U Marijuana (THC) Screen 08/26/21 08/26/21 08/26/21 05:08 05:09 05:30 WBC RBC Hgb Hct MCV MCH MCHC RDW Plt Count MPV Absolute Nucleated RBC Nucleated RBC % (auto) VBG pH VBG pCO2 VBG pO2 VBG HCO3 VBG O2 Saturation VBG Base Excess Sodium 144 Potassium 3.9 Chloride 110 H Carbon Dioxide 28 Anion Gap 10 L BUN 31 H Creatinine 0.94 Estim Creat Clear Calc 74.0 Estimated GFR > 60 POC Glucose 36 L* 29 L* Random Glucose 42 L* Calcium 8.6 Phosphorus Magnesium Total Bilirubin 0.2 AST 21 ALT 18 Alkaline Phosphatase 87 Total Protein 5.3 L Albumin 3.0 L Urine Color Urine Appearance Urine pH Ur Specific [place] Urine Protein Urine Glucose (UA) Urine Ketones Urine Blood Urine Nitrite Ur Leukocyte Esterase Urine RBC Urine WBC Ur Squamous Epith Cells Ur Renal Epithelial Cell Urine Bacteria Epithelial Casts Hyaline Casts Urine Mucus Urine Opiates Screen Urine Fentanyl Screen Ur Barbiturates Screen Ur Phencyclidine Scrn Ur Amphetamines Screen U Benzodiazepines Scrn Urine Cocaine Screen U Marijuana (THC) Screen 08/26/21 08/26/21 08/26/21 05:31 06:24 09:52 WBC RBC Hgb Hct MCV MCH MCHC RDW Plt Count MPV Absolute Nucleated RBC Nucleated RBC % (auto) VBG pH VBG pCO2 VBG pO2 VBG HCO3 VBG O2 Saturation VBG Base Excess Sodium Potassium Chloride Carbon Dioxide Anion Gap BUN Creatinine Estim Creat Clear Calc Estimated GFR POC Glucose 159 H 153 H 203 H Random Glucose Calcium Phosphorus Magnesium Total Bilirubin AST ALT Alkaline Phosphatase Total Protein Albumin Urine Color Urine Appearance Urine pH Ur Specific [place] Urine Protein Urine Glucose (UA) Urine Ketones Urine Blood Urine Nitrite Ur Leukocyte Esterase Urine RBC Urine WBC Ur Squamous Epith Cells Ur Renal Epithelial Cell Urine Bacteria Epithelial Casts Hyaline Casts Urine Mucus Urine Opiates Screen Urine Fentanyl Screen Ur Barbiturates Screen Ur Phencyclidine Scrn Ur Amphetamines Screen U Benzodiazepines Scrn Urine Cocaine Screen U Marijuana (THC) Screen 08/26/21 08/26/21 08/26/21 12:27 12:44 12:44 WBC 12.0 H RBC 2.71 L D Hgb 7.8 L D Hct 23.0 L D MCV 84.9 D MCH 28.8 MCHC 33.9 RDW 15.1 Plt Count 160 D MPV 9.7 Absolute Nucleated RBC 0.000 Nucleated RBC % (auto) 0.0 VBG pH VBG pCO2 VBG pO2 VBG HCO3 VBG O2 Saturation VBG Base Excess Sodium 139 Potassium 4.0 Chloride 107 Carbon Dioxide 25 Anion Gap 11 L BUN 26 H Creatinine 0.93 Estim Creat Clear Calc 74.4 Estimated GFR > 60 POC Glucose 199 H Random Glucose 227 H Calcium 8.4 Phosphorus 2.5 L Magnesium 1.5 L Total Bilirubin AST ALT Alkaline Phosphatase Total Protein Albumin Urine Color Urine Appearance Urine pH Ur Specific [place] Urine Protein Urine Glucose (UA) Urine Ketones Urine Blood Urine Nitrite Ur Leukocyte Esterase Urine RBC Urine WBC Ur Squamous Epith Cells Ur Renal Epithelial Cell Urine Bacteria Epithelial Casts Hyaline Casts Urine Mucus Urine Opiates Screen Urine Fentanyl Screen Ur Barbiturates Screen Ur Phencyclidine Scrn Ur Amphetamines Screen U Benzodiazepines Scrn Urine Cocaine Screen U Marijuana (THC) Screen 08/26/21 08/26/21 15:52 19:44 WBC RBC Hgb Hct MCV MCH MCHC RDW Plt Count MPV Absolute Nucleated RBC Nucleated RBC % (auto) VBG pH VBG pCO2 VBG pO2 VBG HCO3 VBG O2 Saturation VBG Base Excess Sodium Potassium Chloride Carbon Dioxide Anion Gap BUN Creatinine Estim Creat Clear Calc Estimated GFR POC Glucose 91 151 H Random Glucose Calcium Phosphorus Magnesium Total Bilirubin AST ALT Alkaline Phosphatase Total Protein Albumin Urine Color Urine Appearance Urine pH Ur Specific [place] Urine Protein Urine Glucose (UA) Urine Ketones Urine Blood Urine Nitrite Ur Leukocyte Esterase Urine RBC Urine WBC Ur Squamous Epith Cells Ur Renal Epithelial Cell Urine Bacteria Epithelial Casts Hyaline Casts Urine Mucus Urine Opiates Screen Urine Fentanyl Screen Ur Barbiturates Screen Ur Phencyclidine Scrn Ur Amphetamines Screen U Benzodiazepines Scrn Urine Cocaine Screen U Marijuana (THC) Screen Microbiology Microbiology Results: Microbiology 08/25/21 16:27 Blood - Venous Blood Culture - Preliminary No growth after 24 hours. 08/25/21 16:27 Blood - Venous Blood Culture - Preliminary No growth after 24 hours. 08/26/21 10:50 Sputum - Expectorated Gram Stain - Final 08/26/21 10:50 Sputum - Expectorated Sputum Culture - Final Quality Stroke Does the patient have a stroke diagnosis?: No VTE Prior VTE?: No VTE Risk Level:: Medical - moderate - high VTE Device Contraindication: N/A - Device Ordered VTE Drug Contraindication: N/A - Med Ordered
[2021-08-26 21:55] LABS: Glucose, Whole Blood 234 mg/dL (60-115)
[2021-08-26 23:51] LABS: Glucose, Whole Blood 231 mg/dL (60-115)
--- NOTE | 2021-08-27 | ECG_ITS ---
Test Reason : repeat Blood Pressure : / mmHG Vent. Rate : 088 BPM Atrial Rate : 088 BPM P-R Int : 146 ms QRS Dur : 076 ms QT Int : 358 ms P-R-T Axes : 046 038 028 degrees QTc Int : 433 ms Normal sinus rhythm Nonspecific T wave abnormality Abnormal ECG When compared with ECG of 26-AUG-2021 10:28, ST no longer elevated in Anterolateral leads Referred By: Pham Alexis Electronically Signed By:LISSETTE NOLASCO MD
--- NOTE | 2021-08-27 03:00 | PC.NURSE ---
Assumed care at 15:00. Patient alert, oriented x4, very behaviorally abnormal with frequent shouting for nurse and excessive demands regarding abnormal number of beverages requested, inappropriate both in language and actions with interactions with staff. Pleasant, but uncooperative often. Refused tube feeding, discussed with MD and ok to feed diabetic diet. Patient ate well, excellent fluids. Educated about fructose not being ideal for diabetics, and encouraged to eat more well rounded caloric foods--i.e., can have more juice after eating dinner. Patient with POCs relatively well controlled in 90's-151. Patient was trialed out of restraints twice, and had trouble with picking at her central line dressing/peeling that off, as well as pulling on oxygen sensor and heart monitor leads. Restraints successfully discontinued at 18:00. Patient also was due to void at 19:48 and was unable; bladder scanned for >999 ccs, was ordered for straight cath x 1 and re-assess, straight cathed for >1 liter. Patient with complaint of bilateral lower and upper extremity numbness as well as right lower leg severe weakness and moderate weakness to LLE. Patient withdraws to pain on LLE and moves BUE freeely. PA aware and in to assess--RLL moved when patient distracted, also orders for xrays of RLL. Discussed potential for other injuries due to patient's being found down, and PA following up. Lung sounds coarse throughout to auscultation, but satting 97-99% on room air, and breathing easily, occasional productive cough of greenish sputum. Patient was initially on Precedex, this was progressively weaned off, and patient was successfully transferred up to [facility] in evening.
[2021-08-27 04:00] VITALS: BP 127/77; PULSE 84; RESP 20; TEMP 37.6; O2SAT 92
[2021-08-27 05:22] LABS: Appearance Urine CLEAR; Color Urine YELLOW; Glucose Urine UA NEG (NEG); Leukocyte Esterase Urine NEG (NEG); Nitrite Urine NEG (NEG); Specific Gravity - Urine <= 1.005 (1.005-1.025); Urine Blood NEG (NEG); Urine Ketones NEG (NEG); Urine Protein NEG (NEG-TRACE)
[2021-08-27 06:16] LABS: MANUAL DIFF FLAG NO
[2021-08-27] MEDS: Pantoprazole Sodium 40 MG/10 ML VIAL IVPUSH (06:23)
[2021-08-27] MEDS: Piperacillin Sodium/Tazobactam 4.5 GM in 0.9 % Sodium Chloride 100 ML IV ×2 (06:23→13:42)
[2021-08-27 06:24] LABS: Basophils Percent Auto 0.2 % (0-2); Eosinophils Percent Auto 0.4 % (0-4); Hematocrit 25.5 % (37.0-47.0); Hemoglobin 8.7 g/dl (12.0-16.0); Imm Gran Abs Auto 0.05 X10*3/uL (0.00-0.03); Imm Gran Pct Auto 0.4 % (0.0-0.4); Lymphocytes Percent Auto 17.9 % (20-40); Mean Corpuscular HGB Conc 34.1 g/dl (31.0-35.0); Mean Corpuscular Hemoglobin 28.7 pg (27.0-33.0); Mean Corpuscular Volume 84.2 fL (80.0-98.0); Mean Platelet Volume 10.5 fL (9.4-12.3); Monocytes Absolute Auto 0.6 X10*3/uL (0.1-1.2); Monocytes Percent Auto 5.1 % (2-11); Neutrophils Absolute Auto 8.5 x10*3/uL (2.0-8.3); Platelet Count 219 X10*3/uL (160-400); Red Blood Count 3.03 X10*6/uL (4.20-5.50); Red Cell Distribution Width 15.8 % (11.0-16.0); White Blood Count 11.2 X10*3/uL (4.8-10.8)
[2021-08-27 06:30] LABS: Venous Blood Gas Refer to POC result
[2021-08-27 06:31] LABS: VBG Base Excess 2.4 mmol/L; VBG HCO3 24 mmol/L (22-26); VBG pCO2 29 mmHg; VBG pH 7.52 (7.32-7.43); VBG pO2 61 mmHg
[2021-08-27 06:42] LABS: Anion Gap 14 (12-20); Blood Urea Nitrogen 14 mg/dL (9-16); Calcium 8.3 mg/dL (8.4-10.2); Carbon Dioxide 22 mmol/L (22-29); Chloride 104 mmol/L (96-108); Creatinine Clr Calc Pharmacy 84.3; Estimated Glomerular Filt Rate > 60; Glucose Random 343 mg/dL (60-115); Magnesium 1.7 mg/dL (1.6-2.6); Phosphorus 2.4 mg/dL (2.7-4.5); Potassium 3.9 mmol/L (3.3-5.1); Sodium 136 mmol/L (135-145)
[2021-08-27 07:29] VITALS: BP 141/77; PULSE 89; RESP 20; TEMP 36.5; O2SAT 97
[2021-08-27 07:36] LABS: Glucose, Whole Blood 331 mg/dL (60-115)
--- NOTE | 2021-08-27 07:48 | HE.PHANOTE ---
Addendum entered by Kalpana Tucker 08/29/21 11:31: Vancomycin addendum: Pt's trough came back at 5.5 mg/L on 08/29/21; increasing dose back to 1000mg Q12H with next trough on 08/30/21 @0800. Will continue to monitor Original Note: Vancomycin Dosing: Her renal function has improved significantly. Changing the regimen to 1000 mg Q12H, which predicts a AUC of 496 and a trough 14.9. True trough is set to be drawn at 1800 on 08/27. We will continue to monitor.
[2021-08-27] MEDS: Magnesium Oxide 400 MG TABLET PO ×2 (08:10→17:17)
[2021-08-27] MEDS: Insulin Lispro 100 UNIT/ML 3 ML VIAL SUBCUT ×4 (08:10→20:39)
[2021-08-27] MEDS: Heparin Sodium,Porcine 5,000 UNIT/ML VIAL 5000 UNIT SUBCUT ×2 (08:10→20:35)
[2021-08-27] MEDS: Sodium,Potassium Phosphates POWD.PACK 1 PACKET PO (08:11)
[2021-08-27] MEDS: vancomycin HCL 1,000 MG in 0.9 % Sodium Chloride 250 ML 270 MG IV (08:11)
[2021-08-27 12:03] LABS: Glucose, Whole Blood 267 mg/dL (60-115)
--- NOTE | 2021-08-27 12:25 | HO.PM.IMPN ---
Subjective Subjective Date of Service: 08/27/21 Interval History: seen and examined this morning downgraded from the ICU overnight after being treated for DKA she is reporting generalized body pain and difficulty with moving her legs she is having urinary retention she denies fever or chills she has had cough productive of clear phlegm Review of Systems Review of Systems: Yes all other systems are reviewed and are negative Constitutional Constitutional: Reports body ache(s), Denies chills, Denies fever(s) and Reports weakness Cardiovascular Cardiovascular: Denies palpitations Respiratory Respiratory: Reports cough Gastrointestinal Gastrointestinal: Denies abdominal pain and Denies vomiting Neurologic Neurologic: Reports weakness Endocrine Endocrine: Denies palpitations Physical Exam Vital Signs: Vital Signs: Last Vital Signs Temp 97.7 F 08/27/21 07:29 Pulse 89 08/27/21 07:29 Resp 20 08/27/21 07:29 BP 141/77 H 08/27/21 07:29 Pulse Ox 97 08/27/21 07:29 BMI result Body Mass Index 20.4 Const: General: alert and awake Nutritional Appearance: thin Orientation/consciousness: patient oriented x3 Resp: Effort & Inspection: normal respiratory effort and able to speak in complete sentences Auscultation: rhonchi GI: Other: Gtube present Palpation (GI): Soft to palpation and nontender Skin: Other: multiple dry healing lesions noted on b/l legs Neuro: General: patient oriented x3 Extrem: Other: able to move right leg and wiggle toes on right but states she is unable to move leg; no leg pain Objective Data Active Medications Heparin Sodium (Porcine) (Heparin Sodium,Porcine 5,000 Unit/Ml Vial) 5,000 unit SUBCUT Q12H [facility] Last Admin: 08/27/21 08:10 Dose: 5,000 unit Documented by: BONITA Piperacillin Sod/Tazobactam (Sod 4.5 gm/ Sodium Chloride) 100 mls @ 200 mls/hr IV Q8H [facility] Last Infusion: 08/27/21 07:16 Dose: 0 mls/hr Documented by: BONITA Vancomycin HCl 1,000 mg/ (Sodium Chloride) 270 mls @ 270 mls/hr IV Q12H [facility] Last Infusion: 08/27/21 09:11 Dose: 0 mls/hr Documented by: BONITA Insulin Glargine (Insulin Glargine,Hum.Rec.Anlog 100 Unit/Ml 10 Ml Vial) 20 unit SUBCUT DAILY [facility] Last Admin: 08/26/21 13:09 Dose: 1 unit Documented by: FOIR Insulin Human Lispro (Insulin Lispro 100 Unit/Ml 3 Ml Vial) 0 unit SUBCUT QIDACHS [facility]; Protocol Last Admin: 08/27/21 08:10 Dose: 8 unit Documented by: BONITA Magnesium Oxide (Magnesium Oxide 400 Mg Tablet) 400 mg PO BIDPC [facility] Last Admin: 08/27/21 08:10 Dose: 400 mg Documented by: BONITA Pantoprazole Sodium (Pantoprazole Sodium 40 Mg/10 Ml Vial) 40 mg IVPUSH DAILY@0630 [facility] Last Admin: 08/27/21 06:23 Dose: 40 mg Documented by: SUBHA Pharmacy Consult (Consult Rx Perform Med Rec) 1 each MISCELLANE ONCE PRN PRN Reason: Consult order Pharmacy Consult (Consult Rx Vancomycin Dosing) 1 each MISCELLANE DAILY PRN PRN Reason: Consult order Pharmacy Consult (Consult Rx Anticoag Dosing) 1 each MISCELLANE DAILY PRN; Protocol PRN Reason: Consult order Potassium Phos/Sodium Phos (Sodium,Potassium Phosphates Powd.Pack) 1 packet PO BID [facility] Last Admin: 08/27/21 08:11 Dose: 1 packet Documented by: BONITA Labs CBC & Chem 7: 08/27/21 06:09 08/27/21 06:09 Labs: Laboratory Results - last 24 hr 08/26/21 08/26/21 08/26/21 12:27 12:44 12:44 MCV 84.9 D MCH 28.8 MCHC 33.9 RDW 15.1 Plt Count 160 D MPV 9.7 Immature Gran % (Auto) Neut % (Auto) Lymph % (Auto) [place] % (Auto) Eos % (Auto) Baso % (Auto) Lymph # (Auto) [place] # (Auto) Eos # (Auto) Baso # (Auto) Abs Immat Gran (auto) Absolute Neuts (auto) Absolute Nucleated RBC 0.000 Nucleated RBC % (auto) 0.0 VBG pH VBG pCO2 VBG pO2 VBG HCO3 VBG O2 Saturation VBG Base Excess Anion Gap 11 L Estim Creat Clear Calc 74.4 Estimated GFR > 60 POC Glucose 199 H Random Glucose 227 H Calcium 8.4 Phosphorus 2.5 L Magnesium 1.5 L C-Reactive Protein Urine Color Urine Appearance Urine pH Ur Specific [place] Urine Protein Urine Glucose (UA) Urine Ketones Urine Blood Urine Nitrite Ur Leukocyte Esterase 08/26/21 08/26/21 08/26/21 15:52 19:44 21:51 MCV MCH MCHC RDW Plt Count MPV Immature Gran % (Auto) Neut % (Auto) Lymph % (Auto) [place] % (Auto) Eos % (Auto) Baso % (Auto) Lymph # (Auto) [place] # (Auto) Eos # (Auto) Baso # (Auto) Abs Immat Gran (auto) Absolute Neuts (auto) Absolute Nucleated RBC Nucleated RBC % (auto) VBG pH VBG pCO2 VBG pO2 VBG HCO3 VBG O2 Saturation VBG Base Excess Anion Gap Estim Creat Clear Calc Estimated GFR POC Glucose 91 151 H 234 H Random Glucose Calcium Phosphorus Magnesium C-Reactive Protein Urine Color Urine Appearance Urine pH Ur Specific [place] Urine Protein Urine Glucose (UA) Urine Ketones Urine Blood Urine Nitrite Ur Leukocyte Esterase 08/26/21 08/27/21 08/27/21 23:45 05:06 06:09 MCV 84.2 MCH 28.7 MCHC 34.1 RDW 15.8 Plt Count 219 D MPV 10.5 Immature Gran % (Auto) 0.4 Neut % (Auto) 76.0 H Lymph % (Auto) 17.9 L [place] % (Auto) 5.1 Eos % (Auto) 0.4 Baso % (Auto) 0.2 Lymph # (Auto) 2.0 [place] # (Auto) 0.6 Eos # (Auto) 0.0 Baso # (Auto) 0.0 Abs Immat Gran (auto) 0.05 H Absolute Neuts (auto) 8.5 H Absolute Nucleated RBC 0.000 Nucleated RBC % (auto) 0.0 VBG pH VBG pCO2 VBG pO2 VBG HCO3 VBG O2 Saturation VBG Base Excess Anion Gap Estim Creat Clear Calc Estimated GFR POC Glucose 231 H Random Glucose Calcium Phosphorus Magnesium C-Reactive Protein Urine Color YELLOW Urine Appearance CLEAR Urine pH 6.0 Ur Specific [place] <= 1.005 Urine Protein NEG Urine Glucose (UA) NEG Urine Ketones NEG Urine Blood NEG Urine Nitrite NEG Ur Leukocyte Esterase NEG 08/27/21 08/27/21 08/27/21 06:09 06:14 07:27 MCV MCH MCHC RDW Plt Count MPV Immature Gran % (Auto) Neut % (Auto) Lymph % (Auto) [place] % (Auto) Eos % (Auto) Baso % (Auto) Lymph # (Auto) [place] # (Auto) Eos # (Auto) Baso # (Auto) Abs Immat Gran (auto) Absolute Neuts (auto) Absolute Nucleated RBC Nucleated RBC % (auto) VBG pH 7.52 H VBG pCO2 29 VBG pO2 61 VBG HCO3 24 VBG O2 Saturation 91.0 VBG Base Excess 2.4 Anion Gap 14 Estim Creat Clear Calc 84.3 Estimated GFR > 60 POC Glucose 331 H Random Glucose 343 H Calcium 8.3 L Phosphorus 2.4 L Magnesium 1.7 C-Reactive Protein 1.20 H Urine Color Urine Appearance Urine pH Ur Specific [place] Urine Protein Urine Glucose (UA) Urine Ketones Urine Blood Urine Nitrite Ur Leukocyte Esterase 08/27/21 11:59 MCV MCH MCHC RDW Plt Count MPV Immature Gran % (Auto) Neut % (Auto) Lymph % (Auto) [place] % (Auto) Eos % (Auto) Baso % (Auto) Lymph # (Auto) [place] # (Auto) Eos # (Auto) Baso # (Auto) Abs Immat Gran (auto) Absolute Neuts (auto) Absolute Nucleated RBC Nucleated RBC % (auto) VBG pH VBG pCO2 VBG pO2 VBG HCO3 VBG O2 Saturation VBG Base Excess Anion Gap Estim Creat Clear Calc Estimated GFR POC Glucose 267 H Random Glucose Calcium Phosphorus Magnesium C-Reactive Protein Urine Color Urine Appearance Urine pH Ur Specific [place] Urine Protein Urine Glucose (UA) Urine Ketones Urine Blood Urine Nitrite Ur Leukocyte Esterase Microbiology Microbiology Results: Microbiology 08/25/21 16:27 Blood Culture - Preliminary Blood - Venous No growth after 24 hours. 08/25/21 16:27 Blood Culture - Preliminary Blood - Venous No growth after 24 hours. 08/26/21 10:50 Gram Stain - Final Sputum - Expectorated Sputum Culture - Final Assessment and Plan (1) DKA (diabetic ketoacidosis): Status: Acute Plan This is a 25 year old female with complicated past medical history including IVDU, DM, recent prolonged hospitalization at [facility] for IE, meningitis, septic emboli, perforated bowel among others who admitted to the ICU 08/25 for DKA requiring insulin drip, downgraded to the medical floor 08/27 ?Lung abscess continue IV vanco/zosyn ID consult pending sputum cx - oropharyngeal contamination BCx negative x 24 hours urinary retention duff placed given h/o IVDU and previous epidural abscess will obtain MRI of lumbar spine to eval for infection continue IV vanco/zosyn for now ESR/CRP both lower then prebious wbc trending down, likely hemoconcentrated on admission, afebrile Abnormal EKG ?pericarditis, although ST changes not diffuse trop flat d/w cards, will obtain limited echo to eval for WMA, pericardial effusion h/o IE previously at [facility] for treatment will obtain records limited echo, will re-eval tricuspid valve DM s/p insulin drip in ICU resumed on subQ Lantus continue SSI, POCs, ada diet polysubstance use disorder addiction medicine following pt does not want treatment with methadone as it causes her nausea Hypophosphatemia/hypomagnesemia will continue to replace orally follow daily RUDI r/t DKA resolved metabolic encephalopathy r/t DKA resolved dvt ppx - heparin attending - dr. pinedo patient requires ongoing inpatient hospitalization for work up r/t leg weakness, ?lung abscess and urinary retension Quality Stroke Does the patient have a stroke diagnosis?: No VTE Prior VTE?: No VTE Risk Level:: Medical - moderate - high VTE Device Contraindication: N/A - Device Ordered VTE Drug Contraindication: N/A - Med Ordered
--- NOTE | 2021-08-27 13:00 | CA_ITS ---
Transthoracic Echocardiogram Patient (Last, First, Middle): María Morgan, Gender: Female Date of : 1995 Age: 25 Procedure Date: 08/27/2021 Procedure Type: Transthoracic Echocardiogram Location: [facility] Height: 157.48 cm Weight: 48.99 kg BSA: 1.47 m2 Heart Rate: bpm BP: 134 / 85 mmHg Photolithographer: SIVA Kohler MD: Pham JEAN Outreach Specialist: Renzo Niño MD Symptoms: ?WMA, pericardial effusion; eval tricuspid valve Study Quality: Good ECG Rhythm: Sinus Conclusions: - 1. Normal LV systolic function without regional wall motion abnormality 2. No pericardial effusion 3. 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 The visually estimated ejection fraction is between 60-65%. There is no evidence of regional wall motion abnormalities. Tricuspid Valve There is moderate tricuspid valve regurgitation. There is a moderate pedunculated and mobile mass on the posterior tricuspid valve leaflet. The mass is consistent with possible vegetation. Pericardium/Pleural There is no evidence of pericardial effusion. Prior Study Comparison No significant change compared to prior study dated: 04/17/2021. Compared to reported study from [facility] done in July Measurements 2D Linear Measurements IVSd: 0.92 0.6-0.9/0.6-1.0 cm LVIDd: 3.97 3.9-5.3/4.2-5.9 cm LVIDd Index: 2.70 2.4-3.2/2.2-3.1 cm/m2 LVIDs: 2.51 2.0-3.6 cm LVPWd: 0.92 0.7-1.1 cm LV Mass: 138.89 67-162/88-224 g LV Mass Index: 94.49 43-95/49-115 g/m2 2D Systolic Function EF 4C: 61.00 >55% EF 2C: 62.50 >55% EF BiP: 61.20 >55% Right Ventricle TAPSE (mm): 23.30 Tricuspid Valve TR Pk Garret: 2.58 TR Pk Grad: 27.00 RA Press: 3.00 RVSP: 30.00 Updated in Other Vendor System with Status of Final Renzo Niño MD electronically signed on 08/27/2021 3:06:35 PM with status of Final
[2021-08-27] MEDS: methADONE HCl 20 MG/2 ML ORAL.CONC PO (13:42)
[2021-08-27 13:50] VITALS: BP 134/85; PULSE 89; RESP 20; TEMP 36.6; O2SAT 97
[2021-08-27 14:58] VITALS: BP 117/81; PULSE 89; RESP 20; TEMP 36.8; O2SAT 100
--- NOTE | 2021-08-27 16:22 | MHC.CM.PN ---
PT CONTINUING TO SLEEP THROUGHOUT THE DAY AND NOT RESPONDING TO VERBAL STIMULI. PT WELL KNOWN TO CM PT HOMELESS WITH PSA PT FREQUENTLY NON-COMPLIANT WITH MEDICATIONS INCLUDING INSULIN DC PLAN TBD PENDING PTS PARTICIPATION
--- NOTE | 2021-08-27 16:25 | MHC.RECOVRN ---
08/27, 1100- Met with pt in 450 to assess for withdrawal symptoms and provide support. Pt laying in bed, awake, alert, easily engaging in conversation. Pt reporting withdrawal symptoms including body aches and restlessness, would like to initiate methadone. Discussed with Xiomara Louise APRN. Pt to receive 20 mg methadone. 1600-Met with pt to f/u regarding methadone initiation. Pt reports decrease in withdrawal symptoms and would like to continue with titration. Pt expressing concerns regarding mobility and fear about the future. Pt would like to continue with treatment, both physically/medically as well as substance use. Discussed with Xiomara Louise APRN. Will continue to follow.
[2021-08-27 16:36] LABS: Glucose, Whole Blood 342 mg/dL (60-115)
[2021-08-27 18:56] VITALS: BP 123/69; PULSE 89; RESP 20; TEMP 37.3; O2SAT 97
[2021-08-27 19:31] LABS: Glucose, Whole Blood 235 mg/dL (60-115)
[2021-08-27] MEDS: methADONE HCl 20 MG/2 ML ORAL.CONC 10 MG PO (20:32)
--- NOTE | 2021-08-27 20:53 | HE.PHANOTE ---
is 443 Patient trough came back at 20, reduced dose to 1 gm q24 hr, predicted auc and predicted trough is 12.7, next trough 08/29 @0800
[2021-08-27 23:54] VITALS: BP 125/66; PULSE 81; RESP 18; TEMP 37.6; O2SAT 93
[2021-08-28] VITALS (7 sets, daily range): BP systolic 100–130; BP diastolic 59–95; PULSE 61–77; RESP 18–20; TEMP 36.7–37.2; O2SAT 96–97
[2021-08-28 06:04] LABS: Hematocrit 26.2 % (37.0-47.0); Hemoglobin 8.4 g/dl (12.0-16.0); Mean Corpuscular HGB Conc 32.1 g/dl (31.0-35.0); Mean Corpuscular Hemoglobin 28.3 pg (27.0-33.0); Mean Corpuscular Volume 88.2 fL (80.0-98.0); Mean Platelet Volume 10.3 fL (9.4-12.3); Platelet Count 133 X10*3/uL (160-400); Red Blood Count 2.97 X10*6/uL (4.20-5.50); Red Cell Distribution Width 16.2 % (11.0-16.0); White Blood Count 4.2 X10*3/uL (4.8-10.8)
[2021-08-28] MEDS: Pantoprazole Sodium 40 MG/10 ML VIAL IVPUSH (06:19)
[2021-08-28] MEDS: Piperacillin Sodium/Tazobactam 4.5 GM in 0.9 % Sodium Chloride 100 ML IV ×3 (06:20→22:58)
[2021-08-28 06:28] LABS: Anion Gap 13 (12-20); Blood Urea Nitrogen 13 mg/dL (9-16); Calcium 8.7 mg/dL (8.4-10.2); Carbon Dioxide 22 mmol/L (22-29); Chloride 102 mmol/L (96-108); Creatinine Clr Calc Pharmacy 93.5; Estimated Glomerular Filt Rate > 60; Glucose Random 581 mg/dL (60-115); Magnesium 1.7 mg/dL (1.6-2.6); Phosphorus 3.4 mg/dL (2.7-4.5); Potassium 4.8 mmol/L (3.3-5.1); Sodium 132 mmol/L (135-145)
--- NOTE | 2021-08-28 06:30 | PM.EVENT ---
Event Note Date of Service: 08/27/21 Event Note: Addiction Note: Please see Recovery Support RN note Methadone started and currently being titrated to effect.
[2021-08-28 07:18] LABS: Glucose, Whole Blood 467 mg/dL (60-115)
[2021-08-28] MEDS: Insulin Regular, Human 100 UNIT/ML 3 ML VIAL IVPUSH (07:50)
[2021-08-28] MEDS: Insulin Lispro 100 UNIT/ML 3 ML VIAL SUBCUT ×4 (07:50→20:10)
[2021-08-28] MEDS: methADONE HCl 20 MG/2 ML ORAL.CONC 35 MG PO (07:55)
[2021-08-28 10:06] LABS: Glucose, Whole Blood 354 mg/dL (60-115)
[2021-08-28] MEDS: vancomycin HCL 1,000 MG in 0.9 % Sodium Chloride 250 ML 270 MG IV (10:34)
--- NOTE | 2021-08-28 11:11 | MHC.CLN ---
F/U PT IS SEVERELY MALNOURISHED SEE FULL CLINICAL NUTRITION ASSESSMENT DATED 08/26/21 PT REFUSED USE OF FEEDING TUBE IN ICU-MD STARTED ON PO DIET PT RECENTLY TRANSFERRED FROM ICU TO [facility] DIET RX: 1800DM-APPROPRIATE PT FREQUENTLY REQUESTING DRINKS/JUICE PER NSG. NOTED SERUM NA 132-MAY CONSIDER FLUID RESTRICTION PT NOT RECEPTIVE TO DIABETIC DIET TEACHING AND NONCOMPLIANT WITH DM MEDICATIONS IN COMMUNITY. PT RECEIVING GLUCERNA BID PROVIDES 474KCALS, 20G PROTEIN PT WITH INCREASED NUTRITION NEEDS R/T PRESSURE INJURY (STAGE 2 COCCYX) CONTINUE TO MONITOR PO INTAKE CLOSELY
[2021-08-28 11:16] LABS: Glucose, Whole Blood 307 mg/dL (60-115)
--- NOTE | 2021-08-28 12:01 | P.PNIM_ITS ---
Subjective Subjective Date of Service: 08/28/21 Interval History: seen and examined this morning BS uncontrolled, still with difficulty moving right leg no nausea or vomiting ongoing cough with clear phlegm Review of Systems Review of Systems: Yes all other systems are reviewed and are negative Constitutional Constitutional: Denies chills and Denies fever(s) Physical Exam Vital Signs: Vital Signs: Last Vital Signs Temp 99.0 F 08/28/21 11:36 Pulse 71 08/28/21 11:36 Resp 20 08/28/21 11:36 BP 109/61 08/28/21 11:36 Pulse Ox 97 08/28/21 11:36 BMI result Body Mass Index 20.4 Const: General: alert and awake Nutritional Appearance: thin Orientation/consciousness: patient oriented x3 Resp: Effort & Inspection: normal respiratory effort and able to speak in complete sentences Auscultation: rhonchi GI: Other: Gtube present Palpation (GI): Soft to palpation and nontender Skin: Other: multiple dry healing lesions noted on b/l legs Neuro: General: patient oriented x3 Extrem: Other: able to move right leg and wiggle toes on right but states she is unable to move leg; no leg pain Objective Data Active Medications Albuterol Sulfate (Albuterol Sulfate (0.042%) 1.25 Mg/3 Ml Vial.Neb) 1.25 mg INHALE RQ6H PRN PRN Reason: Shortness of Breath Guaifenesin (Guaifenesin 100 Mg/5 Ml Liquid) 5 ml PO Q6H PRN PRN Reason: Cough Heparin Sodium (Porcine) (Heparin Sodium,Porcine 5,000 Unit/Ml Vial) 5,000 unit SUBCUT Q12H [facility] Last Admin: 08/28/21 07:56 Dose: Not Given Documented by: MONALISA Non-Admin Reason: Patient Refused Piperacillin Sod/Tazobactam (Sod 4.5 gm/ Sodium Chloride) 100 mls @ 200 mls/hr IV Q8H [facility] Last Infusion: 08/28/21 11:38 Dose: 0 mls/hr Documented by: MONALISA Vancomycin HCl 1,000 mg/ (Sodium Chloride) 270 mls @ 270 mls/hr IV Q24H [facility] Last Infusion: 08/28/21 11:39 Dose: 0 mls/hr Documented by: MONALISA Insulin Glargine (Insulin Glargine,Hum.Rec.Anlog 100 Unit/Ml 10 Ml Vial) 20 unit SUBCUT DAILY [facility] Last Admin: 08/28/21 07:57 Dose: Not Given Documented by: MONALISA Non-Admin Reason: Patient Refused Insulin Human Lispro (Insulin Lispro 100 Unit/Ml 3 Ml Vial) 0 unit SUBCUT QIDACHS [facility]; Protocol Last Admin: 08/28/21 07:50 Dose: 10 unit Documented by: MONALISA Magnesium Oxide (Magnesium Oxide 400 Mg Tablet) 400 mg PO BIDPC [facility] Last Admin: 08/28/21 07:56 Dose: Not Given Documented by: MONALISA Non-Admin Reason: Patient Refused Methadone HCl (Methadone Hcl 20 Mg/2 Ml Oral.Conc) 35 mg PO DAILY [facility] Last Admin: 08/28/21 07:55 Dose: 35 mg Documented by: MONALISA Pantoprazole Sodium (Pantoprazole Sodium 40 Mg/10 Ml Vial) 40 mg IVPUSH DAILY@0630 [facility] Last Admin: 08/28/21 06:19 Dose: 40 mg Documented by: ALFA Pharmacy Consult (Consult Rx Perform Med Rec) 1 each MISCELLANE ONCE PRN PRN Reason: Consult order Pharmacy Consult (Consult Rx Vancomycin Dosing) 1 each MISCELLANE DAILY PRN PRN Reason: Consult order Pharmacy Consult (Consult Rx Anticoag Dosing) 1 each MISCELLANE DAILY PRN; Protocol PRN Reason: Consult order Potassium Phos/Sodium Phos (Sodium,Potassium Phosphates Powd.Pack) 1 packet PO BID [facility] Last Admin: 08/28/21 07:57 Dose: Not Given Documented by: MONALISA Non-Admin Reason: Patient Refused Labs CBC & Chem 7: 08/28/21 12:18 08/28/21 05:45 Labs: Laboratory Results - last 24 hr 08/27/21 08/27/21 08/27/21 11:59 16:32 19:22 MCV MCH MCHC RDW Plt Count MPV Absolute Nucleated RBC Nucleated RBC % (auto) Anion Gap Estim Creat Clear Calc Estimated GFR POC Glucose 267 H 342 H 235 H Random Glucose Calcium Phosphorus Magnesium Vancomycin Trough 08/27/21 08/28/21 08/28/21 20:03 05:45 05:45 MCV 88.2 MCH 28.3 MCHC 32.1 RDW 16.2 H Plt Count 133 L D MPV 10.3 Absolute Nucleated RBC 0.000 Nucleated RBC % (auto) 0.0 Anion Gap 13 Estim Creat Clear Calc 93.5 Estimated GFR > 60 POC Glucose Random Glucose 581 H* Calcium 8.7 Phosphorus 3.4 Magnesium 1.7 Vancomycin Trough 20.0 08/28/21 08/28/21 08/28/21 07:05 10:02 11:06 MCV MCH MCHC RDW Plt Count MPV Absolute Nucleated RBC Nucleated RBC % (auto) Anion Gap Estim Creat Clear Calc Estimated GFR POC Glucose 467 H* 354 H* 307 H Random Glucose Calcium Phosphorus Magnesium Vancomycin Trough Microbiology Microbiology Results: Microbiology 08/25/21 16:27 Blood Culture - Preliminary Blood - Venous No growth after 48 hours. 08/25/21 16:27 Blood Culture - Preliminary Blood - Venous No growth after 48 hours. Assessment and Plan (1) Lung abscess: Status: Acute Plan This is a 25 year old female with complicated past medical history including IVDU, DM, recent prolonged hospitalization at [facility] for IE, meningitis, septic emboli, perforated bowel among others who admitted to the ICU 08/25 for DKA req uiring insulin drip, downgraded to the medical floor 08/27 ?Lung abscess continue IV vanco/zosyn sputum cx - oropharyngeal contamination BCx negative to date h/o IE, still with tricuspid valve vegetation per echo ID consult pending Septic arthritis ESR/CRP both lower then previous likely chronic, seen on imaging dating back to june inflammatory markers lower then previous continue IV vanco/zosyn for now wbc trending down, likely hemoconcentrated on admission, afebrile urinary retention duff placed MRI negative for epidural abscess urology consult pending Leg pain pt reports difficting moving leg imaging showing septic arthritis of SI joint and iliac fracture dating back to june lumbar spine MRI with no compression, narrowing or infection ortho consult placed, declined to see pt as they don't treat that area of the body declined to participate in PT today h/o IE previously at [facility] for treatment, she reports compleating course of abx limited echo unchanged from previous, still with moderate MR waiting for records from [facility] [place] she was not a surgical candidate due to high risk for relapse ID consult pending Abnormal EKG ?pericarditis, although ST changes not diffuse trop flat d/w cards, limited echo neg for WMA, pericardial effusion repeat EKG showing resolution of ST changes thrombocytopenia CBC showing significant drop in platelets ?error, will repeat CBC has bee on heparin since admission, not likely HIT DM with hyperglycemia BS uncontrolled, seems due to dietary indiscretion s/p insulin drip in ICU for DKA resumed on subQ Lantus continue SSI, POCs, ada diet polysubstance use disorder addiction medicine following Hypophosphatemia/hypomagnesemia will continue to replace orally follow daily RUDI r/t DKA resolved dvt ppx - heparin attending - dr. pinedo patient requires ongoing inpatient hospitalization for work up r/t leg weakness, ?lung abscess and urinary retension Quality Stroke Does the patient have a stroke diagnosis?: No VTE Prior VTE?: No VTE Risk Level:: Medical - moderate - high VTE Device Contraindication: N/A - Device Ordered VTE Drug Contraindication: N/A - Med Ordered
--- NOTE | 2021-08-28 12:23 | PM.CNGS ---
History of Present Illness Consult details Consult date: 08/28/21 Reason for consult: other (g tube removal) Requesting physician: Pham Alexis Narrative: María Morgan is a 25 year old female with a medical history including diabetes with poor insulin compliance requiring numerous admissions for DKA, anxiety, IV drug use (heroin, cocaine, amphetamines), mult episodes of Staph aureus bacteremia. She was admitted to [facility] ICU on 08/25/21 for DKA. She had a prolonged admission at [facility] in June of this year with multiple complex medical and surgical issues including DKA, septic shock, MRSA bacteremia, endocarditis, septic emboli, b/l empyema. She required tracheostomy during that admission which has since been decannulated. Also during that admission she underwent ex lap, small bowel resection of necrotic jejunum, abdominal wash out of RUQ abscess and ABThera placement. She had an open abdomen with ABThera in place and subsequently underwent relook laparotomy, washout, anastomosis and gastrostomy tube placement with abdomen closure in 07/13. Surgery was consulted for possible G tube removal. She was on tube feeds during the admission according to the patient and states these were discontinued while she was at [facility]. She has been tolerating a regular diet without difficulty. She has been eating 100% of all of her meals. She wants the G tube removed because it smells horribly . Review of Systems Constitutional: Constitutional: Denies chills and Denies fever(s) ENT: Denies dizziness Cardiovascular: Cardiovascular: Denies chest pain and Denies dyspnea Respiratory: Respiratory: Denies cough and Denies dyspnea Gastrointestinal: Gastrointestinal: Denies change in bowel habits, Denies nausea and Denies vomiting Integumentary/Breasts: Skin/Breast: Denies rash Neurologic: Denies dizziness and Denies focal weakness PMFSH Past Medical History Medical History (Updated 08/28/21 @ 12:38 by Deysi Duke PA-C) Anxiety Bacteremia Bacteremia due to methicillin susceptible Staphylococcus aureus (MSSA) Cocaine abuse Diabetes mellitus type 1 Endocarditis Heroin abuse Leukocytosis Polysubstance abuse Staphylococcus aureus bacteremia Substance abuse Surgical History Surgical History (Updated 08/28/21 @ 12:38 by Deysi Duke PA-C) History of exploratory laparotomy History of tracheostomy Social History Social History Household Members: None Household Members Other:: currently living with her boyfriend Housing: Homeless Do you presently have visiting nurse or other home services: No Unable to assess alcohol history related to: Refusing to respond Patient Tobacco Use Status: Tobacco use Unknown Tobacco use type: Cigarette Cigarette Packs Per Day: 1 Cigarettes Per Day: 20.0 Years Smoked: ''since I was 16'' e-Cigarette/Vaping Use: Former Use Second Hand Smoke Exposure: Yes Use of substances other than those prescribed or required for medical reasons: Refusing to respond Substance Use Type: Crack/Cocaine and Heroin Last Used Substance: Unknown Currently Displaying Signs/Symptoms of Drug Intoxication Withdrawal: No Other Past Substance Use Problem:: HEROIN/COCAINE Advance Directives: No Advance Directives Information Provided: No Do you have thoughts of harming others: None Do you have a plan to hurt others: No Plan Recently lost weight without trying: Unsure Nutrition Risks: Diabetes new onset/Uncontrolled and Poor intake 0-25% >4 days Patient : No : No Poor oral hygiene: No service: No Current occupational status: unemployed Sexual orientation: Straight/Heterosexual Meds Allergies Allergy/AdvReac Type Severity Reaction Status Date / Time amoxicillin Allergy Rash Verified 08/22/21 16:52 azithromycin Allergy Rash Verified 08/22/21 16:52 Active Medications: Current Medications Albuterol Sulfate (Albuterol Sulfate (0.042%) 1.25 Mg/3 Ml Vial.Neb) 1.25 mg INHALE RQ6H PRN PRN Reason: Shortness of Breath Guaifenesin (Guaifenesin 100 Mg/5 Ml Liquid) 5 ml PO Q6H PRN PRN Reason: Cough Heparin Sodium (Porcine) (Heparin Sodium,Porcine 5,000 Unit/Ml Vial) 5,000 unit SUBCUT Q12H [facility] Last Admin: 08/28/21 07:56 Dose: Not Given Documented by: Piperacillin Sod/Tazobactam (Sod 4.5 gm/ Sodium Chloride) 100 mls @ 200 mls/hr IV Q8H [facility] Last Infusion: 08/28/21 11:38 Dose: Infused Documented by: Vancomycin HCl 1,000 mg/ (Sodium Chloride) 270 mls @ 270 mls/hr IV Q24H [facility] Last Infusion: 08/28/21 11:39 Dose: Infused Documented by: Insulin Glargine (Insulin Glargine,Hum.Rec.Anlog 100 Unit/Ml 10 Ml Vial) 20 unit SUBCUT DAILY [facility] Last Admin: 08/28/21 07:57 Dose: Not Given Documented by: Insulin Human Lispro (Insulin Lispro 100 Unit/Ml 3 Ml Vial) 0 unit SUBCUT QIDACHS [facility]; Protocol Last Admin: 08/28/21 11:40 Dose: 8 unit Documented by: Magnesium Oxide (Magnesium Oxide 400 Mg Tablet) 400 mg PO BIDPC [facility] Last Admin: 08/28/21 07:56 Dose: Not Given Documented by: Methadone HCl (Methadone Hcl 20 Mg/2 Ml Oral.Conc) 35 mg PO DAILY [facility] Last Admin: 08/28/21 07:55 Dose: 35 mg Documented by: Pantoprazole Sodium (Pantoprazole Sodium 40 Mg/10 Ml Vial) 40 mg IVPUSH DAILY@0630 [facility] Last Admin: 08/28/21 06:19 Dose: 40 mg Documented by: Pharmacy Consult (Consult Rx Perform Med Rec) 1 each MISCELLANE ONCE PRN PRN Reason: Consult order Pharmacy Consult (Consult Rx Vancomycin Dosing) 1 each MISCELLANE DAILY PRN PRN Reason: Consult order Pharmacy Consult (Consult Rx Anticoag Dosing) 1 each MISCELLANE DAILY PRN; Protocol PRN Reason: Consult order Potassium Phos/Sodium Phos (Sodium,Potassium Phosphates Powd.Pack) 1 packet PO BID [facility] Last Admin: 08/28/21 07:57 Dose: Not Given Documented by: Home Medications Medication Instructions Recorded Confirmed Last Taken Type No Known Home Meds 08/25/21 08/25/21 Unknown History Physical Exam Vital Signs: Vital Signs: Last Vital Signs Temp 99.0 F 08/28/21 11:36 Pulse 71 08/28/21 11:36 Resp 20 08/28/21 11:36 BP 109/61 08/28/21 11:36 Pulse Ox 97 08/28/21 11:36 BMI result Body Mass Index 20.4 Const: General: comfortable, no acute distress and alert Nutritional Appearance: malnourished Orientation/consciousness: patient oriented x3 Resp: Effort & Inspection: normal respiratory effort GI: Inspection: No distended, Yes scar (midline laparotomy incision) and Yes G-tube present Skin: General skin exam: no rashes or lesions noted Neuro: General: patient oriented x3 Results Labs Result diagrams: 08/28/21 05:45 08/28/21 05:45 Labs: Abnormal lab results 08/27/21 08/27/21 08/28/21 Range/Units 16:32 19:22 05:45 WBC 4.2 L (4.8-10.8) X10*3/uL RBC 2.97 L (4.20-5.50) X10*6/uL Hgb 8.4 L (12.0-16.0) g/dl Hct 26.2 L (37.0-47.0) % RDW 16.2 H (11.0-16.0) % Plt Count 133 L D (160-400) X10*3/uL Sodium (135-145) mmol/L POC Glucose 342 H 235 H (60-115) mg/dL Random Glucose (60-115) mg/dL 08/28/21 08/28/21 08/28/21 Range/Units 05:45 07:05 10:02 WBC (4.8-10.8) X10*3/uL RBC (4.20-5.50) X10*6/uL Hgb (12.0-16.0) g/dl Hct (37.0-47.0) % RDW (11.0-16.0) % Plt Count (160-400) X10*3/uL Sodium 132 L (135-145) mmol/L POC Glucose 467 H* 354 H* (60-115) mg/dL Random Glucose 581 H* (60-115) mg/dL 08/28/21 Range/Units 11:06 WBC (4.8-10.8) X10*3/uL RBC (4.20-5.50) X10*6/uL Hgb (12.0-16.0) g/dl Hct (37.0-47.0) % RDW (11.0-16.0) % Plt Count (160-400) X10*3/uL Sodium (135-145) mmol/L POC Glucose 307 H (60-115) mg/dL Random Glucose (60-115) mg/dL Short CBC 08/28/21 Range/Units 05:45 WBC 4.2 L (4.8-10.8) X10*3/uL Hgb 8.4 L (12.0-16.0) g/dl Hct 26.2 L (37.0-47.0) % Plt Count 133 L D (160-400) X10*3/uL BMP 08/28/21 05:45 Sodium 132 L Potassium 4.8 D Chloride 102 Carbon Dioxide 22 BUN 13 Creatinine 0.74 Calcium 8.7 Urine 08/25/21 08/27/21 Range/Units 22:30 05:06 Urine Color YELLOW YELLOW Urine Appearance CLEAR CLEAR Urine pH 5.5 6.0 (5.0-8.0) Ur Specific Imperial 1.015 <= 1.005 (1.005-1.025) Urine Protein TRACE NEG (NEG-TRACE) MG/DL Urine Glucose (UA) >=1000 H NEG (NEG) MG/DL All other labs normal. Assessment and Plan (1) Gastrostomy tube in place: Status: Acute Plan María Morgan is a 25 year old female with a very complicated medical and surgical history admitted to [facility] ICU on 08/25/21 for DKA. She had a G tube placed during her length June 2021 admission to [facility] for malnutrition, prolonged NPO. This is no longer in use. She is tolerating a solid diet. It was discussed with her that given her poor health and history of diabetes, DKA, IVDA with frequent admissions that if this G tube is removed, it is likely she will require a new one if she continues with this current path. This would require another open abdominal procedure that may be difficult given her surgical history. She states she does not care, it smells and I want it out . The G tube was therefore removed. The balloon was decompressed. The two sutures anchoring the G tube bolster to the skin were cut and removed. There was another stitch on the actual G tube itself encountered while pulling the tube which was cut and the G tube was removed easily without resistance. She tolerated this well. The area was cleansed with normal saline and gauze. Dry gauze/abd was applied to the site. Dry dressings can be applied and changed as needed while the site heals and closes. Procedures Date of Service Date of Service: 08/28/21
[2021-08-28 12:30] LABS: Hematocrit 28.7 % (37.0-47.0); Hemoglobin 9.3 g/dl (12.0-16.0); Mean Corpuscular HGB Conc 32.4 g/dl (31.0-35.0); Mean Corpuscular Hemoglobin 28.4 pg (27.0-33.0); Mean Corpuscular Volume 87.5 fL (80.0-98.0); Mean Platelet Volume 10.1 fL (9.4-12.3); Platelet Count 143 X10*3/uL (160-400); Red Blood Count 3.28 X10*6/uL (4.20-5.50); Red Cell Distribution Width 15.9 % (11.0-16.0); White Blood Count 3.8 X10*3/uL (4.8-10.8)
--- NOTE | 2021-08-28 13:20 | W.PM.IDCN ---
History of Present Illness Data of Consult Service Date: 08/28/21 Requesting physician: Pham Alexis Primary Care Provider: Unknown Physician HPI Reason for consult: lung abscess She [place] found down [place] park with high glucose reading. She has right abscess 1.9 cm RLL She has no fever or chills at this time. SHe had DKA. Review of Systems Review of Systems: Yes all other systems are reviewed and are negative PMFSH Past Medical History Medical History Anxiety Bacteremia Bacteremia due to methicillin susceptible Staphylococcus aureus (MSSA) Cocaine abuse Diabetes mellitus type 1 Endocarditis Heroin abuse Leukocytosis Polysubstance abuse Staphylococcus aureus bacteremia Substance abuse Family History Family history: reviewed and not pertinent Surgical History Surgical History History of exploratory laparotomy History of tracheostomy Social History Social History Household Members: None Household Members Other:: currently living with her boyfriend Housing: Homeless Do you presently have visiting nurse or other home services: No Unable to assess alcohol history related to: Refusing to respond Patient Tobacco Use Status: Tobacco use Unknown Tobacco use type: Cigarette Cigarette Packs Per Day: 1 Cigarettes Per Day: 20.0 Years Smoked: ''since I was 16'' e-Cigarette/Vaping Use: Former Use Second Hand Smoke Exposure: Yes Use of substances other than those prescribed or required for medical reasons: Refusing to respond Substance Use Type: Crack/Cocaine and Heroin Last Used Substance: Unknown Currently Displaying Signs/Symptoms of Drug Intoxication Withdrawal: No Other Past Substance Use Problem:: HEROIN/COCAINE Advance Directives: No Advance Directives Information Provided: No Do you have thoughts of harming others: None Do you have a plan to hurt others: No Plan Recently lost weight without trying: Unsure Nutrition Risks: Diabetes new onset/Uncontrolled and Poor intake 0-25% >4 days Patient : No : No Poor oral hygiene: No service: No Current occupational status: unemployed Sexual orientation: Straight/Heterosexual Meds Allergies Allergy/AdvReac Type Severity Reaction Status Date / Time amoxicillin Allergy Rash Verified 08/22/21 16:52 azithromycin Allergy Rash Verified 08/22/21 16:52 Active Medications: Current Medications Albuterol Sulfate (Albuterol Sulfate (0.042%) 1.25 Mg/3 Ml Vial.Neb) 1.25 mg INHALE RQ6H PRN PRN Reason: Shortness of Breath Guaifenesin (Guaifenesin 100 Mg/5 Ml Liquid) 5 ml PO Q6H PRN PRN Reason: Cough Heparin Sodium (Porcine) (Heparin Sodium,Porcine 5,000 Unit/Ml Vial) 5,000 unit SUBCUT Q12H [facility] Last Admin: 08/28/21 07:56 Dose: Not Given Documented by: Piperacillin Sod/Tazobactam (Sod 4.5 gm/ Sodium Chloride) 100 mls @ 200 mls/hr IV Q8H [facility] Last Infusion: 08/28/21 11:38 Dose: Infused Documented by: Vancomycin HCl 1,000 mg/ (Sodium Chloride) 270 mls @ 270 mls/hr IV Q24H [facility] Last Infusion: 08/28/21 11:39 Dose: Infused Documented by: Insulin Glargine (Insulin Glargine,Hum.Rec.Anlog 100 Unit/Ml 10 Ml Vial) 20 unit SUBCUT DAILY [facility] Last Admin: 08/28/21 07:57 Dose: Not Given Documented by: Insulin Human Lispro (Insulin Lispro 100 Unit/Ml 3 Ml Vial) 0 unit SUBCUT QIDACHS [facility]; Protocol Last Admin: 08/28/21 11:40 Dose: 8 unit Documented by: Magnesium Oxide (Magnesium Oxide 400 Mg Tablet) 400 mg PO BIDPC [facility] Last Admin: 08/28/21 07:56 Dose: Not Given Documented by: Methadone HCl (Methadone Hcl 20 Mg/2 Ml Oral.Conc) 35 mg PO DAILY [facility] Last Admin: 08/28/21 07:55 Dose: 35 mg Documented by: Pantoprazole Sodium (Pantoprazole Sodium 40 Mg/10 Ml Vial) 40 mg IVPUSH DAILY@0630 [facility] Last Admin: 08/28/21 06:19 Dose: 40 mg Documented by: Pharmacy Consult (Consult Rx Perform Med Rec) 1 each MISCELLANE ONCE PRN PRN Reason: Consult order Pharmacy Consult (Consult Rx Vancomycin Dosing) 1 each MISCELLANE DAILY PRN PRN Reason: Consult order Pharmacy Consult (Consult Rx Anticoag Dosing) 1 each MISCELLANE DAILY PRN; Protocol PRN Reason: Consult order Potassium Phos/Sodium Phos (Sodium,Potassium Phosphates Powd.Pack) 1 packet PO BID [facility] Last Admin: 08/28/21 07:57 Dose: Not Given Documented by: Home Medications Medication Instructions Recorded Confirmed Last Taken Type No Known Home Meds 08/25/21 08/25/21 Unknown History Physical Exam Vital Signs: Vital Signs: Last Vital Signs Temp 99.0 F 08/28/21 11:36 Pulse 71 08/28/21 11:36 Resp 20 08/28/21 11:36 BP 109/61 08/28/21 11:36 Pulse Ox 97 08/28/21 11:36 BMI result Body Mass Index 20.4 Const: General: cooperative HEENT: Mouth: Normal oral and palatal mucosa present Resp: Effort & Inspection: normal respiratory effort Cardio: Rate: regular rate Rhythm: regular rhythm Heart sounds: Murmur heart sound present (2/6 RONNELL) GI: Palpation (GI): Soft to palpation and nontender Extrem: General: Yes normal to inspection Right lower extremity: full ROM (weakness bilat LE but can lift) Results Labs CBC & Chem 7: 08/28/21 12:18 08/28/21 05:45 Labs: Short CBC 08/28/21 08/28/21 Range/Units 05:45 12:18 WBC 4.2 L 3.8 L (4.8-10.8) X10*3/uL Hgb 8.4 L 9.3 L (12.0-16.0) g/dl Hct 26.2 L 28.7 L (37.0-47.0) % Plt Count 133 L D 143 L (160-400) X10*3/uL BMP 08/28/21 05:45 Sodium 132 L Potassium 4.8 D Chloride 102 Carbon Dioxide 22 BUN 13 Creatinine 0.74 Calcium 8.7 Microbiology Microbiology Results: Microbiology 08/25/21 16:27 Blood - Venous Blood Culture - Preliminary No growth after 48 hours. 08/25/21 16:27 Blood - Venous Blood Culture - Preliminary No growth after 48 hours. 08/26/21 10:50 Sputum - Expectorated Gram Stain - Final 08/26/21 10:50 Sputum - Expectorated Sputum Culture - Final Assessment and Plan (1) Lung abscess: Status: Acute She has likely aspiration pneumonia due to somnolence leading to early lung abscess. She has no signs of epidural/subdural spine abscess Organisms lung include gram negative/gram positive Septic arthritis picture and endocarditis in past ,still see stigmata and not active bacteremia at this time (2) Gastrostomy tube in place: Status: Acute Plan Would continue Vancomycin and Zosyn for 5-7 days and then po Clindamycin 300 tid with Doxycycline 100 mg po bid for two weeks.
--- NOTE | 2021-08-28 14:27 | MHC.RECOVRN ---
Met with pt to follow up regarding methadone titration. Pt received 35 mg this morning. Pt reports this has helped with withdrawal symptoms and would like to continue. Pt does not appear to be experiencing withdrawal at this time. Pt reports desire to continue with all treatment, states I just want to get better. Pt fearful regarding current hospitalization and , tearful, states God has given me so many chances, what if this is it? Why can't I walk? What is wrong with me? Pt has spoken to mom and aunt while inpatient, looks forward to both calls. Pt has been coloring while here, finds it helpful to relax. Denies questions or concerns at this time regarding NIALL. Discussed with Xiomara Louise APRN. Will continue to follow.
[2021-08-28] MEDS: diphenhydrAMINE HCL 25 MG TABLET PO (15:19)
[2021-08-28 16:09] LABS: Glucose, Whole Blood 275 mg/dL (60-115)
[2021-08-28] MEDS: Magnesium Oxide 400 MG TABLET PO (16:45)
--- NOTE | 2021-08-28 19:20 | MHC.RECOVSUP ---
? Reason for consult Recovery Support o Current location: 450 o Identified substance use concern: - Support ? Intervention: o Community resources provided o Harm reduction discussion ? Plan: <del>o</del> <del>Referral</del> <del>to</del> <del>[facility]</del> <del>o</del> <del>Bed</del> <del>search</del> <del>in</del> <del>progress</del> <del>to</del> o Follow up tomorrow o Patient awaiting crisis evaluation o Patient to follow up with [facility] after discharge ? Additional information:Met with Patient we talk recovery, And harm reduction..
[2021-08-28 19:45] LABS: Glucose, Whole Blood 293 mg/dL (60-115)
[2021-08-28] MEDS: Sodium,Potassium Phosphates POWD.PACK 1 PACKET PO (20:04)
[2021-08-28] MEDS: Heparin Sodium,Porcine 5,000 UNIT/ML VIAL 5000 UNIT SUBCUT (20:07)
--- NOTE | 2021-08-28 20:11 | PC.NURSE ---
L IJ triple lumen dressing coming off, asked pt if this RN could reinforce dressing and she refused.
[2021-08-28 22:46] LABS: Glucose, Whole Blood 179 mg/dL (60-115)
--- NOTE | 2021-08-29 | ECG_ITS ---
Test Reason : nausea Blood Pressure : / mmHG Vent. Rate : 072 BPM Atrial Rate : 072 BPM P-R Int : 132 ms QRS Dur : 068 ms QT Int : 376 ms P-R-T Axes : 007 035 029 degrees QTc Int : 411 ms Normal sinus rhythm Normal ECG When compared with ECG of 27-AUG-2021 14:09, Nonspecific T wave abnormality no longer evident in Anterior leads Referred By: Tony Tsang Electronically Signed By:LISSETTE NOLASCO MD
[2021-08-29 04:00] VITALS: BP 127/68; PULSE 77; RESP 18; TEMP 37.1; O2SAT 95
[2021-08-29 04:06] LABS: Glucose, Whole Blood 531 mg/dL (60-115)
[2021-08-29] MEDS: Insulin Regular, Human 100 UNIT/ML 3 ML VIAL 10 UNIT IVPUSH (04:30)
[2021-08-29 04:33] LABS: Hematocrit 28.5 % (37.0-47.0); Hemoglobin 8.9 g/dl (12.0-16.0); Mean Corpuscular HGB Conc 31.2 g/dl (31.0-35.0); Mean Corpuscular Volume 89.6 fL (80.0-98.0); Mean Platelet Volume 10.6 fL (9.4-12.3); Platelet Count 148 X10*3/uL (160-400); Red Blood Count 3.18 X10*6/uL (4.20-5.50); Red Cell Distribution Width 15.8 % (11.0-16.0); White Blood Count 6.5 X10*3/uL (4.8-10.8)
[2021-08-29] MEDS: ondansetron HCL 4 MG/2 ML VIAL IVPUSH (04:33)
[2021-08-29] MEDS: 0.9 % Sodium Chloride 500 ML IV (04:37)
[2021-08-29 05:36] LABS: Glucose, Whole Blood 421 mg/dL (60-115)
[2021-08-29 05:44] LABS: Anion Gap 15 (12-20); Blood Urea Nitrogen 18 mg/dL (9-16); Calcium 8.5 mg/dL (8.4-10.2); Carbon Dioxide 24 mmol/L (22-29); Chloride 98 mmol/L (96-108); Creatinine Clr Calc Pharmacy 87.6; Estimated Glomerular Filt Rate > 60; Magnesium 1.6 mg/dL (1.6-2.6); Phosphorus 4.1 mg/dL (2.7-4.5); Potassium 5.1 mmol/L (3.3-5.1); Sodium 132 mmol/L (135-145)
[2021-08-29 05:45] LABS: Glucose Random 629 mg/dL (60-115)
[2021-08-29] MEDS: Pantoprazole Sodium 40 MG/10 ML VIAL IVPUSH (05:58)
[2021-08-29] MEDS: Insulin Lispro 100 UNIT/ML 3 ML VIAL SUBCUT ×3 (05:58→20:48)
[2021-08-29] MEDS: Piperacillin Sodium/Tazobactam 4.5 GM in 0.9 % Sodium Chloride 100 ML IV ×3 (06:05→23:03)
[2021-08-29] MEDS: guaiFENesin 100 MG/5 ML LIQUID PO (06:09)
[2021-08-29 08:00] VITALS: BP 112/74; PULSE 89; RESP 17; TEMP 36.9; O2SAT 95
[2021-08-29 08:21] LABS: Glucose, Whole Blood 312 mg/dL (60-115)
[2021-08-29] MEDS: methADONE HCl 20 MG/2 ML ORAL.CONC 35 MG PO (08:21)
[2021-08-29] MEDS: Insulin Glargine,Hum.rec.anlog 100 UNIT/ML 10 ML VIAL 20 UNIT SUBCUT (08:22)
[2021-08-29] MEDS: Magnesium Oxide 400 MG TABLET PO ×2 (08:23→18:09)
[2021-08-29] MEDS: vancomycin HCL 1,000 MG in 0.9 % Sodium Chloride 250 ML 270 MG IV ×2 (10:29→22:59)
[2021-08-29 10:46] LABS: Vancomycin Trough 5.5 mcg/mL (10.0-20.0)
[2021-08-29 11:11] LABS: Glucose, Whole Blood 290 mg/dL (60-115)
[2021-08-29 11:42] VITALS: BP 108/57; PULSE 74; RESP 18; TEMP 36.8; O2SAT 92
--- NOTE | 2021-08-29 11:58 | P.PNIM_ITS ---
Subjective Subjective Date of Service: 08/29/21 Review of Systems BS uncontrolled, still with difficulty moving right leg no nausea or vomiting ongoing cough with clear phlegm Physical Exam Vital Signs: Vital Signs: Last Vital Signs Temp 98.3 F 08/29/21 11:42 Pulse 74 08/29/21 11:42 Resp 18 08/29/21 11:42 BP 108/57 L 08/29/21 11:42 Pulse Ox 92 08/29/21 11:42 BMI result Body Mass Index 20.4 Appearing in no acute distress lung sounds are clear to auscultation heart regular rate rhythm, clear S1, S2 positive bowel sounds, abdomen is soft, nontender neuro patient is alert x3, no focal deficits no pain response when pinching the nail beds of bilateral great toes Objective Data Active Medications Albuterol Sulfate (Albuterol Sulfate (0.042%) 1.25 Mg/3 Ml Vial.Neb) 1.25 mg INHALE RQ6H PRN PRN Reason: Shortness of Breath Guaifenesin (Guaifenesin 100 Mg/5 Ml Liquid) 5 ml PO Q6H PRN PRN Reason: Cough Last Admin: 08/29/21 06:09 Dose: 5 ml Documented by: CUBA Heparin Sodium (Porcine) (Heparin Sodium,Porcine 5,000 Unit/Ml Vial) 5,000 unit SUBCUT Q12H [facility] Last Admin: 08/29/21 08:21 Dose: Not Given Documented by: DAYRON Non-Admin Reason: Patient Refused Piperacillin Sod/Tazobactam (Sod 4.5 gm/ Sodium Chloride) 100 mls @ 200 mls/hr IV Q8H [facility] Last Infusion: 08/29/21 06:46 Dose: 0 mls/hr Documented by: CUBA Vancomycin HCl 1,000 mg/ (Sodium Chloride) 270 mls @ 270 mls/hr IV Q12H [facility] Insulin Glargine (Insulin Glargine,Hum.Rec.Anlog 100 Unit/Ml 10 Ml Vial) 20 unit SUBCUT DAILY [facility] Last Admin: 08/29/21 08:22 Dose: 20 unit Documented by: DAYRON Insulin Human Lispro (Insulin Lispro 100 Unit/Ml 3 Ml Vial) 0 unit SUBCUT QIDACHS [facility]; Protocol Last Admin: 08/29/21 05:58 Dose: 10 unit Documented by: CUBA Magnesium Oxide (Magnesium Oxide 400 Mg Tablet) 400 mg PO BIDPC [facility] Last Admin: 08/29/21 08:23 Dose: 400 mg Documented by: DAYRON Methadone HCl (Methadone Hcl 20 Mg/2 Ml Oral.Conc) 35 mg PO DAILY [facility] Last Admin: 08/29/21 08:21 Dose: 35 mg Documented by: DAYRON Pharmacy Consult (Consult Rx Perform Med Rec) 1 each MISCELLANE ONCE PRN PRN Reason: Consult order Pharmacy Consult (Consult Rx Vancomycin Dosing) 1 each MISCELLANE DAILY PRN PRN Reason: Consult order Pharmacy Consult (Consult Rx Anticoag Dosing) 1 each MISCELLANE DAILY PRN; Protocol PRN Reason: Consult order Potassium Phos/Sodium Phos (Sodium,Potassium Phosphates Powd.Pack) 1 packet PO BID [facility] Last Admin: 08/29/21 08:24 Dose: Not Given Documented by: DAYRON Non-Admin Reason: Patient Refused Labs CBC & Chem 7: 08/29/21 04:25 08/29/21 04:25 Labs: Laboratory Results - last 24 hr 08/28/21 08/28/21 08/28/21 12:18 16:05 19:38 MCV 87.5 MCH 28.4 MCHC 32.4 RDW 15.9 Plt Count 143 L MPV 10.1 Absolute Nucleated RBC 0.000 Nucleated RBC % (auto) 0.0 Anion Gap Estim Creat Clear Calc Estimated GFR POC Glucose 275 H 293 H Random Glucose Calcium Phosphorus Magnesium Vancomycin Trough 08/28/21 08/29/21 08/29/21 22:43 04:00 04:25 MCV 89.6 MCH 28.0 MCHC 31.2 RDW 15.8 Plt Count 148 L MPV 10.6 Absolute Nucleated RBC 0.000 Nucleated RBC % (auto) 0.0 Anion Gap Estim Creat Clear Calc Estimated GFR POC Glucose 179 H 531 H* Random Glucose Calcium Phosphorus Magnesium Vancomycin Trough 08/29/21 08/29/21 08/29/21 04:25 05:32 08:04 MCV MCH MCHC RDW Plt Count MPV Absolute Nucleated RBC Nucleated RBC % (auto) Anion Gap 15 Estim Creat Clear Calc 87.6 Estimated GFR > 60 POC Glucose 421 H* 312 H Random Glucose 629 H* Calcium 8.5 Phosphorus 4.1 Magnesium 1.6 Vancomycin Trough 08/29/21 08/29/21 09:55 11:08 MCV MCH MCHC RDW Plt Count MPV Absolute Nucleated RBC Nucleated RBC % (auto) Anion Gap Estim Creat Clear Calc Estimated GFR POC Glucose 290 H Random Glucose Calcium Phosphorus Magnesium Vancomycin Trough 5.5 L Assessment and Plan (1) Lung abscess: Status: Acute Plan This is a 25 year old female with complicated past medical history including IVDU, DM, [place] [facility] [place], meningitis, septic emboli, perforated bowel among others who admitted to the ICU 08/25 for DKA requ iring insulin drip, downgraded to the medical floor 08/27 ?Lung abscess continue IV vanco/zosyn for 5-7 (08/31/21)days then change to clinda 300mg tid and doxy 100mg BID for 14 days sputum cx - oropharyngeal contamination BCx negative to date 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 lumbar spine MRI with no compression, narrowing or infection, imaging showing septic arthritis of SI joint and iliac fracture dating back to jun Neuro consult pending declined to participate in PT hx of endocarditis previously [place] [facility] [place], she reports completing course of abx limited echo unchanged from previous, still with moderate MR waiting [place] [facility] [place] she was not a surgical candidate due to high risk for relapse ID consult pending Abnormal EKG ?pericarditis, although ST changes not diffuse trop flat d/w cards, limited echo neg for WMA, pericardial effusion repeat EKG showing resolution of ST changes thrombocytopenia trending up DM with hyperglycemia BS uncontrolled, seems due to dietary indiscretion s/p insulin drip in ICU for DKA resumed on subQ Lantus continue SSI, POCs, ada diet polysubstance use disorder addiction medicine following Hypophosphatemia/hypomagnesemia will continue to replace orally follow daily RUDI r/t DKA resolved dvt ppx - heparin attending - Dr. Bojorquez patient requires ongoing inpatient hospitalization for work up r/t leg weakness, ?lung abscess and urinary retension Quality Stroke Does the patient have a stroke diagnosis?: No VTE Prior VTE?: No VTE Risk Level:: Medical - moderate - high VTE Device Contraindication: N/A - Device Ordered VTE Drug Contraindication: N/A - Med Ordered
[2021-08-29] MEDS: diphenhydrAMINE HCL 50 MG/ML VIAL 25 MG IVPUSH (12:48)
[2021-08-29 15:12] VITALS: BP 94/53; PULSE 95; RESP 20; TEMP 36.7; O2SAT 84
[2021-08-29 16:04] LABS: Glucose, Whole Blood 133 mg/dL (60-115)
[2021-08-29] MEDS: 0.9 % Sodium Chloride 1,000 ML 999 ML IVCONT ×2 (17:22→18:09)
--- NOTE | 2021-08-29 18:01 | PC.NURSE ---
At 1800 pt refused camera. She is a high fall risk and knows the dangers. Nurse hatch supervisor aware.
[2021-08-29 19:06] VITALS: BP 102/60; PULSE 80; RESP 20; TEMP 36.3; O2SAT 91
[2021-08-29 19:41] LABS: Glucose, Whole Blood 203 mg/dL (60-115)
[2021-08-29 23:33] VITALS: BP 116/71; PULSE 85; RESP 16; TEMP 36.4; O2SAT 98
[2021-08-30 04:00] VITALS: BP 137/71; PULSE 84; RESP 16; TEMP 37.1; O2SAT 97
[2021-08-30] MEDS: Piperacillin Sodium/Tazobactam 4.5 GM in 0.9 % Sodium Chloride 100 ML IV ×2 (06:13→22:57)
[2021-08-30 07:21] LABS: Hematocrit 27.5 % (37.0-47.0); Hemoglobin 8.8 g/dl (12.0-16.0); Mean Corpuscular Hemoglobin 28.9 pg (27.0-33.0); Mean Corpuscular Volume 90.2 fL (80.0-98.0); Mean Platelet Volume 10.1 fL (9.4-12.3); Platelet Count 192 X10*3/uL (160-400); Red Blood Count 3.05 X10*6/uL (4.20-5.50); Red Cell Distribution Width 15.5 % (11.0-16.0); White Blood Count 7.6 X10*3/uL (4.8-10.8)
[2021-08-30 07:39] LABS: Anion Gap 8 (12-20); Blood Urea Nitrogen 9 mg/dL (9-16); Calcium 8.3 mg/dL (8.4-10.2); Carbon Dioxide 32 mmol/L (22-29); Chloride 101 mmol/L (96-108); Creatinine Clr Calc Pharmacy 115.3; Estimated Glomerular Filt Rate > 60; Glucose Random 222 mg/dL (60-115); Potassium 4.5 mmol/L (3.3-5.1); Sodium 136 mmol/L (135-145)
[2021-08-30 07:41] LABS: Vancomycin Trough 13.6 mcg/mL (10.0-20.0)
[2021-08-30 08:00] VITALS: BP 133/87; PULSE 65; RESP 19; TEMP 36.9; O2SAT 96
[2021-08-30 08:07] LABS: Glucose, Whole Blood 183 mg/dL (60-115)
--- NOTE | 2021-08-30 08:13 | P.PNIM_ITS ---
Subjective Subjective Date of Service: 08/30/21 Review of Systems BS uncontrolled, still with difficulty moving right leg now c/o numbess to her rib cage no nausea or vomiting ongoing cough with clear phlegm Physical Exam Vital Signs: Vital Signs: Last Vital Signs Temp 98.5 F 08/30/21 08:00 Pulse 65 08/30/21 08:00 Resp 19 08/30/21 08:00 BP 133/87 08/30/21 08:00 Pulse Ox 96 08/30/21 08:00 BMI result Body Mass Index 20.4 Appearing in no acute distress lung sounds are clear to auscultation heart regular rate rhythm, clear S1, S2 positive bowel sounds, abdomen is soft, nontender neuro patient is alert x3, no focal deficits MSK weakness to LE more right than left,no color or temp changes Objective Data Active Medications Albuterol Sulfate (Albuterol Sulfate (0.042%) 1.25 Mg/3 Ml Vial.Neb) 1.25 mg INHALE RQ6H PRN PRN Reason: Shortness of Breath Guaifenesin (Guaifenesin 100 Mg/5 Ml Liquid) 5 ml PO Q6H PRN PRN Reason: Cough Last Admin: 08/29/21 06:09 Dose: 5 ml Documented by: CUBA Heparin Sodium (Porcine) (Heparin Sodium,Porcine 5,000 Unit/Ml Vial) 5,000 unit SUBCUT Q12H [facility] Last Admin: 08/29/21 20:43 Dose: Not Given Documented by: BEBO Non-Admin Reason: Patient Refused Piperacillin Sod/Tazobactam (Sod 4.5 gm/ Sodium Chloride) 100 mls @ 200 mls/hr IV Q8H [facility] Last Infusion: 08/30/21 08:00 Dose: 0 mls/hr Documented by: DYARON Vancomycin HCl 1,000 mg/ (Sodium Chloride) 270 mls @ 270 mls/hr IV Q12H [facility] Last Infusion: 08/30/21 01:09 Dose: 0 mls/hr Documented by: GINA Insulin Glargine (Insulin Glargine,Hum.Rec.Anlog 100 Unit/Ml 10 Ml Vial) 20 unit SUBCUT DAILY [facility] Last Admin: 08/29/21 08:22 Dose: 20 unit Documented by: DAYRON Insulin Human Lispro (Insulin Lispro 100 Unit/Ml 3 Ml Vial) 0 unit SUBCUT QIDACHS [facility]; Protocol Last Admin: 08/29/21 20:48 Dose: 4 unit Documented by: BEBO Magnesium Oxide (Magnesium Oxide 400 Mg Tablet) 400 mg PO BIDPC [facility] Last Admin: 08/29/21 18:09 Dose: 400 mg Documented by: DAYRON Methadone HCl (Methadone Hcl 20 Mg/2 Ml Oral.Conc) 35 mg PO DAILY [facility] Last Admin: 08/29/21 08:21 Dose: 35 mg Documented by: DAYRON Pharmacy Consult (Consult Rx Perform Med Rec) 1 each MISCELLANE ONCE PRN PRN Reason: Consult order Pharmacy Consult (Consult Rx Vancomycin Dosing) 1 each MISCELLANE DAILY PRN PRN Reason: Consult order Pharmacy Consult (Consult Rx Anticoag Dosing) 1 each MISCELLANE DAILY PRN; Protocol PRN Reason: Consult order Potassium Phos/Sodium Phos (Sodium,Potassium Phosphates Powd.Pack) 1 packet PO BID [facility] Last Admin: 08/29/21 20:45 Dose: Not Given Documented by: BEBO Non-Admin Reason: Patient Refused Labs CBC & Chem 7: 08/30/21 07:12 08/30/21 07:12 Labs: Laboratory Results - last 24 hr 08/29/21 08/29/21 08/29/21 08:04 09:55 11:08 MCV MCH MCHC RDW Plt Count MPV Absolute Nucleated RBC Nucleated RBC % (auto) Anion Gap Estim Creat Clear Calc Estimated GFR POC Glucose 312 H 290 H Random Glucose Calcium Vancomycin Trough 5.5 L 08/29/21 08/29/21 08/30/21 15:56 19:33 07:12 MCV MCH MCHC RDW Plt Count MPV Absolute Nucleated RBC Nucleated RBC % (auto) Anion Gap Estim Creat Clear Calc Estimated GFR POC Glucose 133 H 203 H Random Glucose Calcium Vancomycin Trough 13.6 08/30/21 08/30/21 08/30/21 07:12 07:12 08:04 MCV 90.2 MCH 28.9 MCHC 32.0 RDW 15.5 Plt Count 192 D MPV 10.1 Absolute Nucleated RBC 0.000 Nucleated RBC % (auto) 0.0 Anion Gap 8 L Estim Creat Clear Calc 115.3 Estimated GFR > 60 POC Glucose 183 H Random Glucose 222 H D Calcium 8.3 L Vancomycin Trough Assessment and Plan (1) Lung abscess: Status: Acute Plan This is a 25 year old female with complicated past medical history including IVDU, DM, recent prolonged [place] [facility] [place], meningitis, septic emboli, perforated bowel among others who admitted to the ICU 08/25 for DKA requiring insulin drip, downgraded to the medical floor 08/27 Leg pain pt reports difficulty moving legs, right worse than left , no color disparity, swelling or change in temp. lumbar spine MRI with no compression, narrowing or infection, imaging showing septic arthritis of SI joint and iliac fracture dating now with c/o numbess up to her rib cage and to the outer aspects of her hands Neuro consult pending Brain CT pending to r/o stroke may need repeat MRI ?Lung abscess continue IV vanco/zosyn for 5-7 (08/31/21)days then change to clinda 300mg tid and doxy 100mg BID for 14 days sputum cx - oropharyngeal contamination BCx negative to date h/o IE, still with tricuspid valve vegetation per echo ID following Septic arthritis ESR/CRP both lower then previous likely chronic, seen on imaging dating back to june inflammatory markers lower then previous continue IV vanco/zosyn for now wbc trending down, likely hemoconcentrated on admission, afebrile urinary retention duff placed MRI negative for epidural abscess urology consult pending hx of endocarditis previously at [facility] [place], she reports completing course of abx limited echo unchanged from previous, still with moderate MR she was not a surgical candidate due to high risk for relapse ID following Abnormal EKG ?pericarditis, although ST changes not diffuse trop flat d/w cards, limited echo neg for WMA, pericardial effusion repeat EKG showing resolution of ST changes thrombocytopenia trending up DM with hyperglycemia BS uncontrolled, seems due to dietary indiscretion s/p insulin drip in ICU for DKA resumed on subQ Lantus continue SSI, POCs, ada diet polysubstance use disorder addiction medicine following Hypophosphatemia/hypomagnesemia will continue to replace orally follow daily RUDI r/t DKA resolved dvt ppx - heparin attending - Dr. Bojorquez patient requires ongoing inpatient hospitalization for work up r/t leg weakness, ?lung abscess and urinary retension Quality Stroke Does the patient have a stroke diagnosis?: No VTE Prior VTE?: No VTE Risk Level:: Medical - moderate - high VTE Device Contraindication: N/A - Device Ordered VTE Drug Contraindication: N/A - Med Ordered
[2021-08-30] MEDS: methADONE HCl 20 MG/2 ML ORAL.CONC 35 MG PO (08:27)
[2021-08-30] MEDS: Magnesium Oxide 400 MG TABLET PO (08:29)
[2021-08-30] MEDS: Insulin Lispro 100 UNIT/ML 3 ML VIAL SUBCUT ×2 (08:31→21:41)
[2021-08-30] MEDS: Insulin Glargine,Hum.rec.anlog 100 UNIT/ML 10 ML VIAL 20 UNIT SUBCUT (08:32)
[2021-08-30] MEDS: vancomycin HCL 1,000 MG in 0.9 % Sodium Chloride 250 ML 270 MG IV ×2 (11:15→21:41)
[2021-08-30 11:22] VITALS: BP 114/66; PULSE 77; RESP 19; TEMP 37.3; O2SAT 94
[2021-08-30 11:29] LABS: Glucose, Whole Blood 120 mg/dL (60-115)
--- NOTE | 2021-08-30 13:49 | PM.NEUROCN ---
History of Present Illness Data of Consult Service Date: 08/30/21 Primary Care Provider: Unknown Physician HPI Reason for consult: Inability to move the right leg and slowly ascending numbness up to breast This is an unfortunate 25-year-old female with a history of Juvenile diabetes from age 10yr, with poor insulin compliance with numerous admissions for DKA, anxiety, IV drug use, polysubstance abuse including heroin, cocaine, amphetamine, tobacco abuse, and multiple episodes of Staph aureus bacteremia, both MSSA and MRSA, endocarditis, lumbar epidural abscess draine d at [facility] [place] in Apr 2021.? She?s had mult visits to this hospital, most commonly leaving AMA.? She?s had multiple admissions to this ICU with trachesotomy in the past and a PEG at [facility] earlier this year. Was in the [facility] [facility] ICU for two dayslast week, then discharged to medical floor on 08/20, left the hospital AMA on 08/22. She was brought to [facility] [place] minimally responsive only responding to name.? At the scene, glucometer reading high. ? Brought into the ED semi-obtunded, not interactive.She is now on the flair and I was asked to see her in because of numbness and weakness initially in the right leg and then progressing to both legs in an ascending numbness to just below her breast. Review of Systems Review of Systems: BS uncontrolled, still with difficulty moving right leg, weak and tight left leg and tightness around the chest no nausea or vomiting ongoing cough with clear phlegm Yes all other systems are reviewed and are negative Constitutional: Constitutional: Reports body ache(s), Denies chills, Denies fever(s) and Reports weakness ENT: Denies dizziness Cardiovascular: Cardiovascular: Denies chest pain, Denies palpitations and Denies dyspnea Respiratory: Respiratory: Denies cough and Denies dyspnea Gastrointestinal: Gastrointestinal: Denies abdominal pain, Denies change in bowel habits, Denies nausea and Denies vomiting Integumentary/Breasts: Skin/Breast: Denies rash Neurologic: Denies dizziness, Denies focal weakness and Reports weakness Endocrine: Endocrine: Denies palpitations PMFSH Past Medical History Medical History Anxiety Bacteremia Bacteremia due to methicillin susceptible Staphylococcus aureus (MSSA) Cocaine abuse Diabetes mellitus type 1 Endocarditis Heroin abuse Leukocytosis Polysubstance abuse Staphylococcus aureus bacteremia Substance abuse Family History Family history: reviewed and not pertinent Surgical History Surgical History History of exploratory laparotomy History of tracheostomy Social History Social History Household Members: None Household Members Other:: currently living with her boyfriend Housing: Homeless Do you presently have visiting nurse or other home services: No Unable to assess alcohol history related to: Refusing to respond Patient Tobacco Use Status: Tobacco use Unknown Tobacco use type: Cigarette Cigarette Packs Per Day: 1 Cigarettes Per Day: 20.0 Years Smoked: ''since I was 16'' e-Cigarette/Vaping Use: Former Use Second Hand Smoke Exposure: Yes Use of substances other than those prescribed or required for medical reasons: Refusing to respond Substance Use Type: Crack/Cocaine and Heroin Last Used Substance: Unknown Currently Displaying Signs/Symptoms of Drug Intoxication Withdrawal: No Other Past Substance Use Problem:: HEROIN/COCAINE Advance Directives: No Advance Directives Information Provided: No Do you have thoughts of harming others: None Do you have a plan to hurt others: No Plan Recently lost weight without trying: Unsure Nutrition Risks: Diabetes new onset/Uncontrolled and Poor intake 0-25% >4 days Patient : No : No Poor oral hygiene: No service: No Current occupational status: unemployed Sexual orientation: Straight/Heterosexual Meds Allergies Allergy/AdvReac Type Severity Reaction Status Date / Time amoxicillin Allergy Rash Verified 08/22/21 16:52 azithromycin Allergy Rash Verified 08/22/21 16:52 Active Medications: Current Medications Albuterol Sulfate (Albuterol Sulfate (0.042%) 1.25 Mg/3 Ml Vial.Neb) 1.25 mg INHALE RQ6H PRN PRN Reason: Shortness of Breath Guaifenesin (Guaifenesin 100 Mg/5 Ml Liquid) 5 ml PO Q6H PRN PRN Reason: Cough Last Admin: 08/29/21 06:09 Dose: 5 ml Documented by: Heparin Sodium (Porcine) (Heparin Sodium,Porcine 5,000 Unit/Ml Vial) 5,000 unit SUBCUT Q12H MIKKI Last Admin: 08/30/21 08:33 Dose: Not Given Documented by: Piperacillin Sod/Tazobactam (Sod 4.5 gm/ Sodium Chloride) 100 mls @ 200 mls/hr IV Q8H [facility] Last Infusion: 08/30/21 08:00 Dose: Infused Documented by: Vancomycin HCl 1,000 mg/ (Sodium Chloride) 270 mls @ 270 mls/hr IV Q12H [facility] Last Infusion: 08/30/21 13:02 Dose: Infused Documented by: Insulin Glargine (Insulin Glargine,Hum.Rec.Anlog 100 Unit/Ml 10 Ml Vial) 20 unit SUBCUT DAILY [facility] Last Admin: 08/30/21 08:32 Dose: 20 unit Documented by: Insulin Human Lispro (Insulin Lispro 100 Unit/Ml 3 Ml Vial) 0 unit SUBCUT QIDACHS [facility]; Protocol Last Admin: 08/30/21 13:01 Dose: Not Given Documented by: Magnesium Oxide (Magnesium Oxide 400 Mg Tablet) 400 mg PO BIDPC [facility] Last Admin: 08/30/21 08:29 Dose: 400 mg Documented by: Methadone HCl (Methadone Hcl 20 Mg/2 Ml Oral.Conc) 35 mg PO DAILY [facility] Last Admin: 08/30/21 08:27 Dose: 35 mg Documented by: Pharmacy Consult (Consult Rx Perform Med Rec) 1 each MISCELLANE ONCE PRN PRN Reason: Consult order Pharmacy Consult (Consult Rx Vancomycin Dosing) 1 each MISCELLANE DAILY PRN PRN Reason: Consult order Pharmacy Consult (Consult Rx Anticoag Dosing) 1 each MISCELLANE DAILY PRN; Protocol PRN Reason: Consult order Potassium Phos/Sodium Phos (Sodium,Potassium Phosphates Powd.Pack) 1 packet PO BID [facility] Last Admin: 08/30/21 08:33 Dose: Not Given Documented by: Home Medications Medication Instructions Recorded Confirmed Last Taken Type No Known Home Meds 08/25/21 08/25/21 Unknown History Physical Exam Vital Signs: Vital Signs: Last Vital Signs Temp 99.1 F 08/30/21 11: Pulse 77 08/30/21 11:22 Resp 19 08/30/21 11:22 BP 114/66 08/30/21 11:22 Pulse Ox 94 08/30/21 11:22 BMI result Body Mass Index 20.4 Const: General: cooperative, comfortable, no acute distress, alert, awake and ill appearing chronically Nutritional Appearance: malnourished and thin Orientation/consciousness: patient oriented x3 Limitations: altered mental status HEENT: Head: Yes normal to inspection and Yes atraumatic Ears: hearing grossly normal bilaterally General nose exam: Normal external nose present Face and sinus: Yes normal facial exam Mouth: Normal oral and palatal mucosa present Eyes: General: appearance normal, both eyes and all related structures Neck: Neck: Yes normal visual inspection and Yes no meningeal signs Resp: Effort & Inspection: normal respiratory effort, able to speak in complete sentences and no respiratory distress Auscultation: clear to auscultation bilaterally and rhonchi Cardio: Rate: regular rate Rhythm: regular rhythm Heart sounds: S1 normal heart sound present, S2 normal heart sound present and Murmur heart sound present (2/6 RONNELL) GI: Other: Gtube present Inspection: Yes normal to inspection, No distended, Yes scar (midline laparotomy incision) and Yes G-tube present Palpation (GI): Soft to palpation, nontender, no guarding and not rigid Skin: Other: multiple dry healing lesions noted on b/l legs General skin exam: no rashes or lesions noted Rashes: no rashes Neuro: Other: She is alert oriented speech and cognitive functions appear intact. Cranial nerves are normal. She has minimal weakness in left solutions market consultant and finger spread bilaterally and mild generalized weakness 5 minuus/5 in the upper extremities related to her poor nutritional statuus. It's in the lower extremities the right lower extremity is 2/5 including the iliopsoas quadriceps dorsiflexors and plantar flexors the left lower extremity in the hip flexors that 2-3/5 quadriceps is 4 minus/5 hamstrings 4 and hamstring are 3/5 unable to dorsiflex the foot. Reflexes are hypoactive throughout plantar responses are neutral. There appears to be a sensory level at T4. General: patient oriented x3 and no meningeal signs Gait exam (Neuro): Normal gait present Extrem: Other: able to move right leg and wiggle toes on right but states she is unable to move leg; no leg pain General: Yes normal to inspection Right lower extremity: full ROM (weakness bilat LE but can lift) Results Labs CBC & Chem 7: 08/30/21 07:12 08/30/21 07:12 Labs: Short CBC 08/30/21 Range/Units 07:12 WBC 7.6 (4.8-10.8) X10*3/uL Hgb 8.8 L (12.0-16.0) g/dl Hct 27.5 L (37.0-47.0) % Plt Count 192 D (160-400) X10*3/uL BMP 08/30/21 07:12 Sodium 136 Potassium 4.5 Chloride 101 Carbon Dioxide 32 H BUN 9 Creatinine 0.60 Calcium 8.3 L Microbiology Microbiology Results: Microbiology 08/25/21 16:27 Blood - Venous Blood Culture - Preliminary No growth after 48 hours. 08/25/21 16:27 Blood - Venous Blood Culture - Preliminary No growth after 48 hours. 08/26/21 10:50 Sputum - Expectorated Gram Stain - Final 08/26/21 10:50 Sputum - Expectorated Sputum Culture - Final Assessment and Plan (1) Spinal cord compression: Status: Acute She appears to have a compromise of her spinal cord in the upper thoracic and lower cervical region and with her previous history and epidural abscess with pain in the top of the list. Other causes of compression need to be ruled out. I don't believe she has a transverse myelitis although it is a possibility. Recommendation MRI of the thoracic and cervical spine with and without contrast as soon as possible. If she has significant renal compromise then noncontrast MRI would be adequate. (2) Lung abscess: Status: Acute (3) Drug abuse: Status: Acute (4) DKA (diabetic ketoacidosis): Status: Acute Plan This is a 25 year old female with complicated past medical history including IVDU, DM, recent prolonged hospitalization at [facility] for IE, meningitis, septic emboli, perforated bowel among others who admitted to the ICU 08/25 for DKA requiring insulin drip, downgraded to the medical floor 08/27 Leg pain pt reports difficulty moving legs, right worse than left , no color disparity, swelling or change in temp. lumbar spine MRI with no compression, narrowing or infection, imaging showing septic arthritis of SI joint and iliac fracture dating now with c/o numbess up to her rib cage and to the outer aspects of her hands Neuro consult pending Brain CT pending to r/o stroke may need repeat MRI ?Lung abscess continue IV vanco/zosyn for 5-7 (08/31/21)days then change to clinda 300mg tid and doxy 100mg BID for 14 days sputum cx - oropharyngeal contamination BCx negative to date h/o IE, still with tricuspid valve vegetation per echo ID following Septic arthritis ESR/CRP both lower then previous likely chronic, seen on imaging dating back to june inflammatory markers lower then previous continue IV vanco/zosyn for now wbc trending down, likely hemoconcentrated on admission, afebrile urinary retention duff placed MRI negative for epidural abscess urology consult pending hx of endocarditis previously at [facility] [facility] for treatment, she reports completing course of abx limited echo unchanged from previous, still with moderate MR she was not a surgical candidate due to high risk for relapse ID following Abnormal EKG ?pericarditis, although ST changes not diffuse trop flat d/w cards, limited echo neg for WMA, pericardial effusion repeat EKG showing resolution of ST changes thrombocytopenia trending up DM with hyperglycemia BS uncontrolled, seems due to dietary indiscretion s/p insulin drip in ICU for DKA resumed on subQ Lantus continue SSI, POCs, ada diet polysubstance use disorder addiction medicine following Hypophosphatemia/hypomagnesemia will continue to replace orally follow daily RUDI r/t DKA resolved dvt ppx - heparin attending - Dr. Bojorquez patient requires ongoing inpatient hospitalization for work up r/t leg weakness, ?lung abscess and urinary retension Procedures Date of Service Date of Service: 08/30/21
--- NOTE | 2021-08-30 14:16 | MHC.RECOVSUP ---
Recovery Support note: This adjusto writer operator met with patient periodically throughout the weekend to provide support and to assess withdrawal symptoms. Patient reports no symptoms of withdrawal and is finding the methadone effective. Patient expresses concern over her current medical condition and frustration regarding being stuck in the hospital. Reviewed coping skills and provided patient with art supplies and word searches to stay busy. This adjusto writer operator available as needed.
[2021-08-30] MEDS: diphenhydrAMINE HCL 25 MG TABLET PO (14:35)
[2021-08-30] MEDS: LORazepam 1 MG TABLET PO (14:35)
[2021-08-30 16:00] VITALS: BP 131/76; PULSE 77; RESP 19; TEMP 36.8; O2SAT 95
[2021-08-30 18:02] LABS: Glucose, Whole Blood 167 mg/dL (60-115)
--- NOTE | 2021-08-30 19:04 | P.EN_ITS ---
Event Note Date of Service: 08/30/21 Event Note: Abnormal MRI of cervical and thoracic spine noted at 1730. Images uploaded to [facility]. Discussed case with [facility] transfer line specifically Neurosurgery, Fred JEAN, after discussing with attending physician the suggestion was to tx pt to a neurosurgery facility however [facility] is unable to accept pt due bed capacity. Discussed with Dr. Bojorquez attending who also called [facility] which declined the transfer. Discussed with Dr. Tsang histology supervisor who took over at 2146 and re-evaluated the patient, plan to call [facility] and complete transfer mayo. Neurologist Dr. Coleman who is aware and also rec immediate transfer to tertiary facility. Discharge summary is completed by this provider. Time spent on transfer plan 4 hours.
[2021-08-30 19:05] VITALS: BP 131/76; PULSE 74; RESP 18; TEMP 36.9; O2SAT 95
--- NOTE | 2021-08-30 20:31 | P.DS_ITS ---
DS: Providers Provider Date of Service: 08/31/21 Date of admission: 08/25/21 18:41 Primary care physician: Unknown Physician Consults: 08/27/21 04:50 Consult to Urology Routine Consulting Provider: iWlfred Luna Reason for consultation: urine retension 08/27/21 07:56 Addiction Medicine Routine Consulting Provider: Xiomara Louise Reason for consultation: polysubstance abuse Has provider been notified: No Consult to Infectious Diseases Routine Consulting Provider: Gricelda Rivero Reason for consultation: ?lung abscess? leg weakness Has provider been notified: No 08/28/21 09:55 Consult to General Surgery Routine Consulting Provider: Samuel Mcclelland Reason for consultation: exsiting gtube, wants removed Has provider been notified: No Consult to Orthopedics Routine Consulting Provider: Chelsea Graham Reason for consultation: iliac fracture Has provider been notified: No 08/29/21 11:51 Consult to Neurology Routine Consulting Provider: [facility] Reason for consultation: numbness to leg Has provider been notified: No Attending physician on discharge: Nguyễn Bojorquez Discharging clinician: Kiera Winters DS: Diagnosis Discharge Diagnosis (1) Spinal cord compression: Status: Acute (2) Lung abscess: Status: Acute (3) Drug abuse: (4) DKA (diabetic ketoacidosis): Status: Resolved DS: Summary Hospital Course Hospital Course: HP as per admitting provider The patient is a 25-year-old female with a past medical history of diabetes w poor insulin compliance with numerous admissions for DKA, anxiety, IV drug use, polysubstance abuse including heroin, cocaine, amphetamine, tobacco abuse, and mult episodes of Staph aureus bacteremia, both MSSA and MRSA.? (I?ve been unable to find conclusive evidence that she?s actually had echocardiographically confirmed endocarditis.? See further comment below)? She?s had mult visits to this hospital, most commonly leaving AMA.? She?s had mult admissions to this ICU for mx of DKA, and has previously required tracheal intubation for agitation control. She had a prolonged admission to [facility] earlier this year that included tracheostomy and PEG placement.? Since been decanulated.? Last admission here was this past week 08/19, again for DKA.? Was in the ICU for two days, then discharged to medical floor on 08/20, left the hospital AMA on 08/22.HISTORY OF PRESENT ILLNESS:? The patient was [place] to [place] ED [place] only responding to name.? At the scene, glucometer reading high. ? Brought into the ED semi-obtunded, not interactive.Vital signs in the ED showed heart rate 80, blood pressure 120/85, respiratory rate 16, sat 99% on room air, and temperature 99.1 degrees.? Exam in the ED otherwise notable for being chronically ill- appearing, normal respiratory effort, G-tube present, multiple wounds throughout extremities and torso. Labs in the ED were notable for white count 22, hemoglobin 10.3, sodium 133, potassium 3.3, bicarb 7, anion gap 39, BUN/creatinine 47/2.3, glucose 1525, albumin 4.0, lipase 27, lactic acid 2.8.? Venous blood gas showed 6.91/32/-25 . #Leg pain/ascending numbness, paralysis. ? infectious/inflam vs neoplastic although not likely. Symptoms could also reflect a transverse myelitis with ascending numbess and leg spasms or GBS. pt reports difficulty moving legs, right worse than left, can lift left about 1 inch off the bed , no color disparity, swelling or change in temp. now with c/o numbess up to her rib cage and to the outer aspects of her hands with essentially incont with BM on the toilet, initial lumbar spine MRI on 08/27/21showed no compression, narrowing or infection, imaging showing septic arthritis of SI joint and iliac fracture. Head CT from 08/30/21 neg for acute infarction/trauma. MRI of cervical and thoracic spine showing: (MRI report) CERVICAL SPINE: Edema in the left multifidus deep medial paraspinal musculature spanning from the C4 through the C6 levels of indeterminate etiology. No marrow edema in the adjacent facet joints or facet joint effusion. Superficial 3 cm CC by 1.4 cm TV by 0.5 cm AP enhancing possible intramuscular collection within the left paramedian trapezius musculature spanning from the C4 through the C5 levels. The possibility of an abscess and/or infectious process cannot be ruled out. CT imaging may be useful for further evaluation of the osseous structures. ? THORACIC SPINE: 1. Perceived 0.7 cm mildly expansile intramedullary lesion within the cord at the T5-T6 level with surrounding cord signal abnormality which may reflect edema. No abnormal enhancement, though assessment is limited by motion. Differential diagnostic considerations would include neoplastic and infectious/inflammatory etiologies. A demyelinating lesion cannot be ruled out but is felt to be less likely. 2. Additional nonspecific edema in the paraspinal tissues of the ans-vt-ygmeb thoracic spine. 3. Partially visualized areas of patchy consolidation in the lungs with areas of cavitation, better assessed on prior chest CT imaging. #?Lung abscess, continue IV vanco/zosyn for 5-7 (08/31/21)days then change to clinda 300mg tid and doxy 100mg BID for 14 days sputum cx - oropharyngeal contamination, BCx negative to date, h/o IE, still with tricuspid valve vegetation per echo, ID following #Septic arthritis, ESR/CRP both lower then previous,likely chronic, seen on i maging dating back to june, inflammatory markers lower then previous,continue IV vanco/zosyn continued, wbc trending down, likely hemoconcentrated on admission, afebrile #urinary retention. duff placed. Inital lumbar MRI negative for epidural abscess #Abnormal EKG ?pericarditis, although ST changes not diffuse, trop flat, d/w cards, limited echo neg for WMA, pericardial effusion repeat EKG showing resolution of ST changes #hx of endocarditis previously at [facility] for treatment, she reports completing course of abx limited echo unchanged from previous, still with moderate MR she was not a surgical candidate due to high risk for relapse ID following #DM with hyperglycemia, BS uncontrolled, seems due to dietary indiscretion, s/p insulin drip in ICU for DKA, resumed on subQ Lantus continue SSI, POCs, ada diet #polysubstance use disorder,Chronic, addiction medicine following #Hypophosphatemia/hypomagnesemia. Repleted, poor nutrition #RUDI. r/t DKA. resolved Time Spent with Patient Time attestation: Total time spent providing and/or coordinating discharge services: Discharge coordination time: Greater than 30 minutes Quality: Safe Use of Opioids Does Pt have an Active Cancer Diagnosis on the Problem List?: No Quality: Stroke Does the patient have a stroke diagnosis?: No Physical Exam Vital Signs: Vital Signs: Last Vital Signs Temp 98.4 F 08/30/21 19:05 Pulse 74 08/30/21 19:05 Resp 18 08/30/21 19:05 BP 131/76 08/30/21 19:05 Pulse Ox 95 08/30/21 19:05 BMI result Body Mass Index 20.4 Appearing in no acute distress head is normocephalic atraumatic eyes pupils are PERRLA sclera is anicteric mouth throat mucous membranes are intact and moist neck is supple no lymphadenopathy, no JVD noted lung sounds Rhonchi heart regular rate rhythm, clear S1, S2 positive bowel sounds, abdomen is soft, nontender neuro patient is alert, some improvement in weakness/numbness Left leg able to lift and tranfer to side of bed to sit up Light leg strength 1/5 patient needing to lift up leg to transfer to edge of bed numbess to trunk but now to the abdomen and not below the breast which is an improvement DS: Data Data Completed and Pending Completed studies during hospitalization [Text1]: Procedures Detoxification Services for Substance Abuse Treatment (04/15/21) Drainage of Face Skin, External Approach (01/06/21) Drainage of Neck Skin, External Approach (08/17/20) Insertion of Endotracheal Airway into Trachea, Via Natural or Artificial Opening (04/15/21) Insertion of Endotracheal Airway into Trachea, Via Natural or Artificial Opening Endoscopic (01/06/21) Insertion of Infusion Device into Superior Vena Cava, Percutaneous Approach (04/15/21) Insertion of Infusion Device into Upper Vein, Percutaneous Approach (05/06/21) Respiratory Ventilation, 24-96 Consecutive Hours (04/15/21) Labs on day of discharge: Laboratory Results - last 24 hr 08/30/21 08/30/21 08/30/21 07:12 07:12 07:12 WBC 7.6 RBC 3.05 L Hgb 8.8 L Hct 27.5 L MCV 90.2 MCH 28.9 MCHC 32.0 RDW 15.5 Plt Count 192 D MPV 10.1 Absolute Nucleated RBC 0.000 Nucleated RBC % (auto) 0.0 Sodium 136 Potassium 4.5 Chloride 101 Carbon Dioxide 32 H Anion Gap 8 L BUN 9 Creatinine 0.60 Estim Creat Clear Calc 115.3 Estimated GFR > 60 POC Glucose Random Glucose 222 H D Calcium 8.3 L Vancomycin Trough 13.6 08/30/21 08/30/21 08/30/21 08:04 11:24 17:59 WBC RBC Hgb Hct MCV MCH MCHC RDW Plt Count MPV Absolute Nucleated RBC Nucleated RBC % (auto) Sodium Potassium Chloride Carbon Dioxide Anion Gap BUN Creatinine Estim Creat Clear Calc Estimated GFR POC Glucose 183 H 120 H 167 H Random Glucose Calcium Vancomycin Trough Discharge Plan Discharge Anticipated Discharge Date/Time: 08/31/21 07:54 Patient Disposition: Xfer [facility] Discharge Diagnosis: T5-6 lesion Substance abuse Hx septic arthritis DKA Hx endocarditis Discharge Medications: New Lantus U-100 Insulin 100 unit/mL Solution 20 unit subcut DAILY Qty: 10 0RF magnesium oxide 400 mg (241.3 mg magnesium) Tablet 400 mg PO BIDPC Qty: 60 0RF piperacillin-tazobactam 4.5 gram Recon Soln 4.5 g IV Q8H Qty: 1 0RF methadone [Methadose] 10 mg/mL Concentrate 35 mg PO DAILY Qty: 30 0RF insulin lispro [Humalog U-100 Insulin] 100 unit/mL Solution See Protocol unit subcut QIDACHS Qty: 10 0RF Protocol: Insulin Correction Scale Less than or equal to 110 ---- Give (units): 0 111 to 150 Give (units): 0 151 to 200 Give (units): 2 201 to 250 Give (units): 4 251 to 300 Give (units): 6 301 to 350 Give (units): 8 Greater than 350 Give (units): 10 Call MD if Blood Glucose > : 350 potassium, sodium phosphates [Phos-NaK] 280-160-250 mg Powder In Packet 1 packet PO BID Qty: 100 0RF vancomycin 1,000 mg recon soln 1,000 mg IV Q12H Qty: 1 0RF Discharge Orders: Discharge Order (Routine); Ordered 08/31/21 Ordered By: Kiera Winters Diet: other Activity on Discharge: As tolerated Stand Alone Forms: Patient Portal Discharge page Care Plan Goals: Plan for transfer to Tertiary facility for further workup Health Concerns: T5-6 lesion Substance abuse Hx septic arthritis DKA Hx endocarditis Plan of Treatment: abnormal neurological findings including GBS, transverse myelitis, cord compr ession, spinal abscess Assessment: See discharge summary
[2021-08-30 21:06] LABS: Glucose, Whole Blood 257 mg/dL (60-115)
--- NOTE | 2021-08-30 22:23 | PM.EVENT ---
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 Neurology recommended transfer. She spoke to [facility] finally got in touch with ICU attending Dr. Fernandes at [facility]. I spoke to Dr. Fernandes as well, explained about the current Neurological symptoms which include decreased rectal tone, numbness, decreased reflexes; patient also reported stool accident. spoke to patient who verbally consented to review [facility] medical records. we tried both [facility] and [facility] both which over can take the patient sooner to the [facility]. Patient agreed for the transfer. [facility] is not available Until 09:00 in the morning because of the bad weather. Called multiple ambulances, not available. Will keep trying to find an ambulance for transfer
[2021-08-30 23:48] VITALS: BP 130/78; PULSE 78; RESP 18; TEMP 37; O2SAT 97
[2021-08-31 00:28] LABS: Glucose, Whole Blood 68 mg/dL (60-115)
[2021-08-31 00:28] LABS: Glucose, Whole Blood 41 mg/dL (60-115)
[2021-08-31 00:55] LABS: Glucose, Whole Blood 116 mg/dL (60-115)
[2021-08-31 04:00] VITALS: BP 132/76; PULSE 68; RESP 18; TEMP 37.1; O2SAT 96
--- NOTE | 2021-08-31 05:36 | PC.NURSE ---
Patient to be transported to [facility] in the [place] due to worsening neuro symptoms and MRI results. [facility] called for air transport but was denied due to weather. [facility] also unable to transport by ambulance overnight, they will know about transportation for later today after 0700 this morning. [facility] unable to transport overnight and they will know about transport later today after 0900. [facility] unable to transport overnight and will not know about transport for today until they have a full crew, which will be after 0730 this morning. [facility] is unable to transport as [place] is out of their service range. Dr. Tsang is aware of transport issues. [facility] is aware of transport issue as well. Patient is aware and agreeable to transport. Patient is also aware that there are transport issues and that more will be know later this morning.
--- NOTE | 2021-08-31 05:49 | PC.NURSE ---
Patient's central line dressing changed by this RN X2 overnight as she keeps pulling it off. Patient has been educated and is aware of infection issues regarding this.
[2021-08-31] MEDS: Piperacillin Sodium/Tazobactam 4.5 GM in 0.9 % Sodium Chloride 100 ML IV (06:02)
[2021-08-31 07:34] VITALS: BP 116/72; PULSE 60; RESP 12; TEMP 36.9; O2SAT 96
[2021-08-31 07:40] LABS: Glucose, Whole Blood 221 mg/dL (60-115)
--- NOTE | 2021-08-31 08:36 | MHC.INPTTRAN ---
blood sugar 221 this am. 6 units given. FYI glucose was 41 last noc at 11pm, Juice given with good results. Has TLC in left neck. Functioning well. Had methadone this am. Has significant weakness to [place] LE especially right leg. color pale. Has congested cough.
[2021-08-31 08:44] LABS: Anion Gap 11 (12-20); Blood Urea Nitrogen 10 mg/dL (9-16); Calcium 8.9 mg/dL (8.4-10.2); Carbon Dioxide 33 mmol/L (22-29); Chloride 96 mmol/L (96-108); Creatinine Clr Calc Pharmacy 121.4; Estimated Glomerular Filt Rate > 60; Glucose Random 259 mg/dL (60-115); Potassium 4.5 mmol/L (3.3-5.1); Sodium 135 mmol/L (135-145)
[2021-08-31] MEDS: methADONE HCl 20 MG/2 ML ORAL.CONC 35 MG PO (08:47)
[2021-08-31] MEDS: Insulin Lispro 100 UNIT/ML 3 ML VIAL SUBCUT (08:47)
[2021-08-31] MEDS: guaiFENesin 100 MG/5 ML LIQUID PO (08:47)
[2021-08-31 09:17] LABS: Vancomycin Trough 13.5 mcg/mL (10.0-20.0)
--- NOTE | 2021-08-31 09:33 | HE.PHANOTE ---
nohemi garcia continue current dose, next trough 09/01 @1999
[2021-08-31 09:53] LABS: Glucose, Whole Blood 253 mg/dL (60-115)
[2021-08-31] MEDS: LORazepam 1 MG TABLET PO (10:36)
--- NOTE | 2021-08-31 11:11 | MHC.CM.PN ---
PT WILL BE TRANSFERRED TO [facility] TODAY VIA BLS
== END 2021-08-31 10:44 | disposition short-term general hospital (02) | DRG 420 ==
LOC: HO.ED 17:19 → HO.EDOVER 18:49 → HO.ICU 18:59 → HO.IMC 08-26 20:57
PROVIDERS: Hospitalist; Physician Assistant; Physician Assistant Medical; Admitting Provider Anesthesiology; Emergency Provider Emergency Medicine; Visit Provider Nurse Practitioner Acute Care
DX: E11.10 Type 2 diabetes mellitus with ketoacidosis without coma (principal); G93.41 Metabolic encephalopathy; J85.1 Abscess of lung with pneumonia; E43 Unspecified severe protein-calorie malnutrition; N17.9 Acute kidney failure, unspecified; G37.3 Acute transverse myelitis in demyelinating disease of central nervous system; D63.8 Anemia in other chronic diseases classified elsewhere; E83.39 Other disorders of phosphorus metabolism; F11.20 Opioid dependence, uncomplicated; Z20.822 Contact with and (suspected) exposure to COVID-19; Z91.14 Patient's other noncompliance with medication regimen; F19.10 Other psychoactive substance abuse, uncomplicated; E83.42 Hypomagnesemia; R33.9 Retention of urine, unspecified; M46.58 Other infective spondylopathies, sacral and sacrococcygeal region; Z93.1 Gastrostomy status; Z86.14 Personal history of Methicillin resistant Staphylococcus aureus infection; Z68.1 Body mass index [BMI] 19.9 or less, adult; Z88.0 Allergy status to penicillin; Z88.1 Allergy status to other antibiotic agents; Z79.4 Long term (current) use of insulin; Z79.899 Other long term (current) drug therapy
CPT/HCPCS: 36415; 70450; 71045; 71250; 72156; 72157; 72158; 73564; 73590; 80048; 80053; 80076; 80143; 80179; 80202; 80307; 81001; 81003; 82009; 82803; 82947; 83605; 83690; 83735; 84100; 84484; 85025; 85027; 85652; 86140; 87040; 87070; 87205; 87502; 87635; 93005; 93308; 96361; 96365; 96375; 96376; 97163; 99285; 99291; A9585; C1758; J1200; J2405; J2543; J3010; J3370; J3475; Q0163